=== PATIENT | male | born 1960 | race Caucasian/White ===

== ENCOUNTER 2022-01-27 11:26 | Emergency (ER) | payer SELFPAY ==
[2022-01-27] MEDS ORDERED: LORAZEPAM 0.5 MG TABLET ONE (14:53)
[2022-01-27 14:55] LABS: Absolute Lymphocytes (CBC) 1.5 K/uL (0.7-4.9); Hematocrit 48.6 % (39.6-49.0); Lymphocytes % 23.7 % (15.3-44.8); MCV 96.8 fL (80-100); MPV 7.2 fL (7.6-11.3); RBC Red Blood Cell Count 5.02 M/uL (4.33-5.43)
[2022-01-27] MEDS ORDERED: DIPHENHYDRAMINE 50 MG/ML VIAL ONE (15:04)
[2022-01-27] MEDS ORDERED: dexAMETHasone 10 MG/ML VIAL ONE (15:04)
[2022-01-27] MEDS ORDERED: METOCLOPRAMIDE 10 MG/2mL INJ ONE (15:04)
[2022-01-27] MEDS ORDERED: KETOROLAC 30 MG/ML INJ ONE (15:05)
[2022-01-27] MEDS ORDERED: NA CHLORIDE 0.9% 1,000 ML ONE (15:05)
--- NOTE | 2022-01-27 15:40 | RAD REPORT ---
EXAM DESCRIPTION: CT - Head Brain Wo Cont - 01/27/2022 3:16 pm CLINICAL HISTORY: Headache, new or worsening COMPARISON: No comparisons TECHNIQUE: All CT scans are performed using dose optimization technique as appropriate and may inclu de automated exposure control or mA/KV adjustment according to patient size. FINDINGS: No intracranial hemorrhage, hydrocephalus or extra-axial fluid collection.No areas of brai n edema or evidence of midline shift. Mild chronic small vessel ischemic changes. The paranasal sinuses and mastoids are clear. The calvarium is intact. IMPRESSION: No acute intracranial abnormality.
--- NOTE | 2022-01-27 16:58 | ER ---
Nurse's Notes [facility] Name: Alexander Abraham Age: 61 yrs Sex: Male : 1960 Arrival Date: 01/27/2022 Time: 11:29 Bed 15 Private MD: Diagnosis: Headache;Paresthesia of skin Presentation: 01/27 12:11 Chief complaint: EMS states: Neck pain and MARK x 4 days. Coronavirus screen: At this [facility] time, the client does not indicate any symptoms associated with coronavirus-19. Ebola Screen: No symptoms or risks identified at this time. Risk Assessment: Do you want to hurt yourself or someone else? Patient reports no desire to harm self or others. Onset of symptoms was January 23, 2022. 12:11 Method Of Arrival: EMS: [facility] 12:11 Acuity: NICOLASA 3 7 12:15 Note Pt reports numbness and bilateral arm numbness and tingling from the elbows down, hb and in bilateral legs from the knees down x 1 month. Also c/o neck pain that radiates to front of head x 3-4 days. 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 14:04 Initial Sepsis Screen: Does the patient meet any 2 criteria? No. Patient's initial 3 sepsis screen is negative. Does the patient have a suspected source of infection? No. Patient's initial sepsis screen is negative. Triage Assessment: 13:52 Headache History: The patient has had previous headaches and this one is similar to 3 previous episodes. General: Appears in no apparent distress. uncomfortable, Behavior is cooperative, appropriate for age, anxious. Pain: Complains of pain in top of head, forehead, left frontal area, left side of forehead, right frontal area and right side of forehead Pain currently is 4 out of 10 on a pain scale. at worst was 10 out of 10 on a pain scale. Quality of pain is described as pressure, throbbing, pulsating, Pain began 1 month ago Is intermittent, Alleviated by rest, Aggravated by increased activity, repositioning. EENT: Sclera/Cornea are reddened in outer aspect of conjuctiva of right eye, iris of right eye, inner aspect of conjuctiva of right eye, outer aspect of conjuctiva of left eye, iris of left eye and inner aspect of conjunctiva of left eye. Neuro: Level of Consciousness is awake, alert, obeys commands, Oriented to person, place, time, situation, Pyrometer Mechanic are equal bilaterally Moves all extremities. Gait is steady, Speech is normal, Facial symmetry appears normal, Pupils are PERRLA, Tingling in right leg and left leg Numbness in right leg and left leg Reports headache. Cardiovascular: Capillary refill < 3 seconds Patient's skin is warm and dry. Respiratory: Airway is patent Respiratory effort is even, unlabored. GI: No signs and/or symptoms were reported involving the gastrointestinal system. : No signs and/or symptoms were reported regarding the genitourinary system. Derm: No signs and/or symptoms reported regarding the dermatologic system. Musculoskeletal: Range of motion: intact in all extremities. 17:11 Pain: Also complains of diaphoresis. eh3 Historical: - Allergies: 12:12 No Known Allergies; jl7 - PMHx: 12:12 colon cancer; Hypertensive disorder; jl7 - Immunization history:: Client reports receiving the 2nd dose of the Covid vaccine, Flu vaccine is up to date. - Social history:: Smoking status: Patient reports the use of cigarette tobacco products, smokes one pack cigarettes per day. Screenin:02 Abuse screen: Denies threats or abuse. Denies injuries from another. Nutritional eh3 screening: Had unintentional weight loss of 10 pounds or more. Tuberculosis screening: No symptoms or risk factors identified. Fall Risk None identified. Assessment: 14:26 Reassessment: No changes from previously documented assessment. Pain: Complains of pain eh3 in top of head, forehead, left frontal area, left side of forehead, right frontal area and right side of forehead. Neuro: Reports numbness in lateral aspect of right knee, lateral aspect of right calf, right ankle, lateral aspect of right foot, posterior aspect of right knee, right calf, right Achilles, right heel, medial aspect of right knee, medial aspect of right calf, medial aspect of right foot, right knee, right zamora, anterior aspect of right ankle, dorsum of right foot and left leg. 14:51 Pain: Complains of pain in top of head, forehead, left frontal area, left side of eh3 forehead, right frontal area and right side of forehead Pain currently is 9 out of 10 on a pain scale. 15:30 Reassessment: Pt requesting social service consult - academic services coordinator at bedside at this ld1 time. Vital Signs: 12:15 BP 140 / 95; Pulse 79; Resp 20; Temp 97.8; Pulse Ox 100% on R/A; Weight 74.84 kg; hb Height 5 ft. 9 in. (175.26 cm); Pain 7/10; 13:52 BP 150 / 98; Pulse 76; Resp 17; Pulse Ox 97% on R/A; Pain 4/10; eh3 14:32 BP 145 / 88; Pulse 77; Resp 22; Pulse Ox 99% on R/A; ld1 16:14 BP 154 / 87; Pulse 77; Resp 18; Pulse Ox 100% on R/A; ld1 12:15 Body Mass Index 24.37 (74.84 kg, 175.26 cm) hb ED Course: 11:29 Patient arrived in ED. as 11:34 Jason Vu DO is Attending Physician. ms3 12:12 Triage completed. jl7 12:15 Arm band placed on left wrist. hb 14:01 Tami Paulson is Primary Nurse. eh3 14:02 Patient has correct armband on for positive identification. Placed in gown. Bed in low eh3 position. Call light in reach. Side rails up X2. 14:50 COVID-19 SARS RT PCR (Document "Date of Onset" if Symptomatic) Sent. eh3 14:54 COVID-19 SARS RT PCR (Document "Date of Onset" if Symptomatic) Sent. ld1 15:18 CT Head Brain wo Cont In Process Unspecified. EDMS 16:56 Natalio Choudhury DO is Referral Physician. ms3 17:10 No provider procedures requiring assistance completed. IV discontinued, intact, eh3 bleeding controlled, No redness/swelling at site. Pressure dressing applied. Administered Medications: 14:50 Drug: Ativan (LORazepam) 0.5 mg Route: PO; eh3 15:10 Drug: Decadron - Dexamethasone 10 mg Route: IVP; Site: right antecubital; ld1 15:10 Drug: Ketorolac 10 mg Route: IVP; Site: right antecubital; ld1 15:10 Drug: NS 0.9% 1000 ml Route: IV; Rate: 1000 ml; Site: right antecubital; ld1 15:11 Drug: Reglan (metoCLOPramide) 10 mg Route: IVP; Site: right antecubital; ld1 15:11 Drug: Benadryl (diphenhydrAMINE) 25 mg Route: IVP; Site: right antecubital; ld1 Medication: 17:11 VIS not applicable for this client. 3 Outcome: 16:57 Discharge ordered by . ms3 17:10 Discharged to home ambulatory. 3 17:10 Condition: stable 17:10 Discharge instructions given to patient, Instructed on discharge instructions, follow up and referral plans. Demonstrated understanding of instructions, follow-up care. 17:11 Patient left the ED. eh3 Signatures: Dispatcher [employer] EDMS Ryanne Null Heather, RN RN Judith Braun RN RN jl7 Jason Vu DO DO ms3 Aliza Odonnell RN RN ld1 Tami Paulson eh3 Corrections: (The following items were deleted from the chart) 12:20 12:15 Note Pt reports numbness and bilateral arm numbness and tingling from the elbows hb down, and in bilateral legs from the knees down x 1 month. Also c/o neck pain that radiates to front of head x 3-4 days. hb 14:30 13:52 Pain: Complains of pain in top of head, forehead, right religious, left religious, left eh3 frontal area, left side of the back of head, left side of forehead, left temporal area, left occipital area, right frontal area, right side of the back of head, right temporal area, right side of forehead and right occipital area Pain radiates to neck and back of neck Pain currently is 4 out of 10 on a pain scale. at worst was 10 out of 10 on a pain scale. Quality of pain is described as pressure, radiating, throbbing, pulsating, Pain began 1 month ago Is intermittent, Alleviated by rest, Aggravated by increased activity, repositioning, Also complains of eh3
--- NOTE | 2022-01-27 16:58 | EDPHYS ---
Physician Documentation [facility] Name: Cullen Souzarow Age: 61 yrs Sex: Male : 1960 Arrival Date: 01/27/2022 Time: 11:29 Bed 15 Private MD: ED Physician Jason Vu HPI: 01/27 14:52 This 61 yrs old Male presents to ER via EMS with complaints of Numbness, Headache. ms3 14:52 The patient's problem is reported as paresthesias, all over. Onset: The ms3 symptoms/episode began/occurred acutely. 14:55 Onset: The symptoms/episode began/occurred 1.5 month(s) ago. Duration: The episode is ms3 continuous. The symptoms are alleviated by nothing. The symptoms are aggravated by nothing. Associated signs and symptoms: The patient has no apparent associated signs or symptoms. Severity of symptoms: At their worst the symptoms were moderate in the emergency department the symptoms are unchanged. Patient's baseline: Neuro: alert and fully oriented, Motor: no deficits, Ambulation: walks without assistance, Speech: normal. Historical: - Allergies: 12:12 No Known Allergies; jl7 - PMHx: 12:12 colon cancer; Hypertensive disorder; jl7 - Immunization history:: Client reports receiving the 2nd dose of the Covid vaccine, Flu vaccine is up to date. - Social history:: Smoking status: Patient reports the use of cigarette tobacco products, smokes one pack cigarettes per day. ROS: 14:55 Constitutional: Negative for fever, and chills. Eyes: Negative for injury, pain, ms3 redness, and discharge, Neck: Negative for injury, pain, and swelling, Cardiovascular: Negative for chest pain, and palpitations. Respiratory: Negative for shortness of breath, cough, wheezing, and pleuritic chest pain, Abdomen/GI: Negative for abdominal pain, nausea, vomiting, diarrhea, and constipation, MS/Extremity: Negative for injury and deformity. 14:55 Neuro: Positive for paresthesias. 14:55 All other systems are negative. Exam: 14:55 Constitutional: This is a well developed, well nourished patient who is awake, alert, ms3 and in no acute distress. Head/Face: Normocephalic, atraumatic. Neck: Trachea midline, no cervical lymphadenopathy. Supple, full range of motion without nuchal rigidity, or vertebral point tenderness. No Meningismus. Chest/axilla: Normal chest wall appearance and motion. Nontender with no deformity. Cardiovascular: Regular rate and rhythm with a normal S1 and S2. No gallops, murmurs, or rubs. Normal PMI, no JVD. No pulse deficits. Respiratory: Lungs have equal breath sounds bilaterally, clear to auscultation and percussion. No rales, rhonchi or wheezes noted. No increased work of breathing, no retractions or nasal flaring. Abdomen/GI: Soft, non-tender, with normal bowel sounds. No distension or tympany. No guarding or rebound. No evidence of tenderness throughout. Skin: Warm, dry with normal turgor. Normal color with no rashes, no lesions, and no evidence of cellulitis. MS/ Extremity: Pulses equal, no cyanosis. Neurovascular intact. Full, normal range of motion. Psych: Awake, alert, with orientation to person, place and time. Behavior, mood, and affect are within normal limits. 16:57 Radiologist reports: CT Head Brain wo Cont \\E\\[id number]\\E\\ [facility] [address] [facility] REPORT Name: CULLEN MIRANDA Acct Number: [id number] :1960 Age:61 Sex:M Ord Phys: Jason Vu Unit Number: [id number] [place] [facility]: Danny Redding DO Status: REG ER Exam Date: 01/27/22 EXAM DESCRIPTION: CT - Head Brain Wo Cont - 01/27/2022 3:16 pm CLINICAL HISTORY: Headache, new or worsening COMPARISON: No comparisons TECHNIQUE: All CT scans are performed using dose optimization technique as appropriate and may include automated exposure control or mA/KV adjustment according to patient size. FINDINGS: No intracranial hemorrhage, hydrocephalus or extra-axial fluid collection.No areas of brain edema or evidence of midline shift. Mild chronic small vessel ischemic changes. The paranasal sinuses and mastoids are clear. The calvarium is intact. IMPRESSION: No acute intracranial abnormality. Signed By: Nathan Monte MD Signed AT: 07/19/22 1540 \\E\\[id number]\\E\\ Vital Signs: 12:15 BP 140 / 95; Pulse 79; Resp 20; Temp 97.8; Pulse Ox 100% on R/A; Weight 74.84 kg; hb Height 5 ft. 9 in. (175.26 cm); Pain 7/10; 13:52 BP 150 / 98; Pulse 76; Resp 17; Pulse Ox 97% on R/A; Pain 4/10; eh3 14:32 BP 145 / 88; Pulse 77; Resp 22; Pulse Ox 99% on R/A; ld1 16:14 BP 154 / 87; Pulse 77; Resp 18; Pulse Ox 100% on R/A; ld1 12:15 Body Mass Index 24.37 (74.84 kg, 175.26 cm) hb MDM: 13:39 Patient medically screened. ms3 16:57 Differential diagnosis: metabolic disorder, Neuropathy vs kate. Data reviewed: vital ms3 signs, nurses notes, lab test result(s), radiologic studies, and as a result, I will discharge patient. Counseling: I had a detailed discussion with the patient and/or guardian regarding: the historical points, exam findings, and any diagnostic results supporting the discharge/admit diagnosis, lab results, radiology results, the need for outpatient follow up, to return to the emergency department if symptoms worsen or persist or if there are any questions or concerns that arise at home. ED course: Patient is improved, in NAD, non-toxic appearing, ambulatory in ED, speaking full sentences.. 01/27 14:28 Order name: CBC with Diff; Complete Time: 16:06 ms3 01/27 14:28 Order name: BMP; Complete Time: 16:06 ms3 01/27 14:47 Order name: COVID-19 SARS RT PCR (Document "Date of Onset" if Symptomatic); Complete ld1 Time: 16:31 01/27 14:54 Order name: CT Head Brain wo Cont; Complete Time: 16:06 ms3 Administered Medications: 14:50 Drug: Ativan (LORazepam) 0.5 mg Route: PO; eh3 15:10 Drug: Decadron - Dexamethasone 10 mg Route: IVP; Site: right antecubital; ld1 15:10 Drug: Ketorolac 10 mg Route: IVP; Site: right antecubital; ld1 15:10 Drug: NS 0.9% 1000 ml Route: IV; Rate: 1000 ml; Site: right antecubital; ld1 15:11 Drug: Reglan (metoCLOPramide) 10 mg Route: IVP; Site: right antecubital; ld1 15:11 Drug: Benadryl (diphenhydrAMINE) 25 mg Route: IVP; Site: right antecubital; ld1 Disposition Summary: 01/27/22 16:57 Discharge Ordered Location: Home ms3 Condition: Stable ms3 Diagnosis - Headache ms3 - Paresthesia of skin ms3 Followup: ms3 - With: Natalio Choudhury DO - When: 2 - 3 days - Reason: Re-evaluation by your physician Discharge Instructions: - Discharge Summary Sheet ms3 - General Headache Without Cause ms3 - Paresthesia, [id number] ms3 Forms: - Medication Reconciliation Form ms3 - Thank You Letter ms3 - Antibiotic Education ms3 - Prescription Opioid Use ms3 Signatures: Dispatcher [employer] EDIjeoma Pacheco RN EVON Judith Braun RN RN jl7 Jason Vu, DO ms3 Aliza Odonnell RN RN ld1 Khurram, Tami 3
[2022-01-27 17:41] VITALS: TEMP 97.8
[2022-01-27 17:47] VITALS: BP 154/87; O2SAT 100
== END 2022-01-27 17:11 | disposition home or self-care (01) ==
LOC: ER 11:26
DX: R51.9 Headache, unspecified (principal); R20.2 Paresthesia of skin; I10 Essential (primary) hypertension; F17.210 Nicotine dependence, cigarettes, uncomplicated; Z85.038 Personal history of other malignant neoplasm of large intestine
CPT/HCPCS: 36415; 70450; 80048; 85025; 96374; 96375; 99284; J1100; J1200; J2765; J7030; U0003

== ENCOUNTER 2022-04-28 09:13 | Emergency (ER) | payer SELFPAY ==
[2022-04-28] MEDS ORDERED: ONDANSETRON 4 MG/2 ML VIAL ONE (10:24)
[2022-04-28 10:25] LABS: Absolute Lymphocytes (CBC) 1.8 K/uL (0.7-4.9); Hematocrit 52.4 % (39.6-49.0); Lymphocytes % 28.9 % (15.3-44.8); MCV 95.8 fL (80-100); MPV 7.8 fL (7.6-11.3); RBC Red Blood Cell Count 5.47 M/uL (4.33-5.43)
[2022-04-28] MEDS ORDERED: NA CHLORIDE 0.9% 0 ML ONE (10:25)
[2022-04-28] MEDS ORDERED: NA CHLORIDE 0.9% 1,000 ML ONE (10:25)
[2022-04-28 10:27] LABS: Protime INR 1.08
[2022-04-28] MEDS ORDERED: FENTANYL CITR 100 MCG/2 ML ONE (10:27)
[2022-04-28] MEDS ORDERED: NA CHLORIDE 0.9% 500 ML ONE (10:31)
[2022-04-28] MEDS ORDERED: AMLODIPINE 10 MG TAB ONE (10:47)
[2022-04-28] MEDS ORDERED: ENALAPRIL 10 MG TAB ONE (10:47)
[2022-04-28] MEDS ORDERED: LORazepam 2 MG/ML VIAL ONE (10:47)
--- NOTE | 2022-04-28 10:54 | RAD REPORT ---
EXAM DESCRIPTION: RAD - Chest Single View - 04/28/2022 10:21 am CLINICAL HISTORY: COUGH Chest pain. COMPARISON: CHEST SINGLE VIEW dated 01/10/2011; ABDOMEN ACUTE SERIES dated 04/03/2010; CHEST PA AND LAT 2 VIEW dated 02/03/2010; CHEST SINGLE VIEW dated 02/02/2010 FINDINGS: Portable technique limits examination quality. The lungs are emphysematous but grossly clear. The heart is normal in size. No displaced fractures. IMPRESSION: Mild COPD.
--- NOTE | 2022-04-28 11:15 | RAD REPORT ---
EXAM DESCRIPTION: RAD - Elbow Right 3 View - 04/28/2022 10:21 am CLINICAL HISTORY: PAIN COMPARISON: No comparisons FINDINGS: Mild osteopenia. No acute fracture or dislocation.
--- NOTE | 2022-04-28 11:15 | RAD REPORT ---
EXAM DESCRIPTION: RAD - Shoulder Right 2 View - 04/28/2022 10:21 am CLINICAL HISTORY: PAIN COMPARISON: No comparisons FINDINGS: Mild diffuse osteopenia is seen. Mild degenerative changes noted AC and glenohumeral joint . No acute fracture or dislocation seen.
[2022-04-28 11:44] LABS: Albumin 3.6 g/dL (3.4-5.0); Bilirubin Direct 0.4 mg/dL (0-0.2); Bilirubin Total 2.1 mg/dL (0.2-1.0); Protein, Total 7.5 g/dL (6.4-8.2); Troponin High Sensitivity 11.3 pg/mL (<58.9)
[2022-04-28 11:46] LABS: Potassium 4.3 mmol/L (3.5-5.1)
[2022-04-28 11:47] LABS: Magnesium 1.6 mg/dL (1.8-2.4)
--- NOTE | 2022-04-28 12:16 | RAD REPORT ---
EXAM DESCRIPTION: CT - Head C Spine Cap Lamin Littlejohn - 04/28/2022 11:59 am CLINICAL HISTORY: Trauma, head and neck injury. Chest, abdomen and pelvis pain. FALL COMPARISON: CTANGIO CHEST FOR PE dated 01/10/2011 TECHNIQUE: CT head without contrast. CT cervical spine without contrast with coronal and sagittal reformatted images. CT chest, abdomen and pelvis with IV contrast (approximately 100 mL nonionic IV contrast) with ruiz l and sagittal reformatted images of the spine. All CT scans are performed using dose optimization technique as appropriate and may include automated exposure control or mA/KV adjustment according to patient size. FINDINGS: CT HEAD WITHOUT CONTRAST: No intracranial hemorrhage, hydrocephalus or extra-axial fluid collection. Mild chronic microvascular ischemic changes. No areas of brain edema or midline shift. The paranasal sinuses and mastoids are clear. The calvarium is intact. CT CERVICAL SPINE WITHOUT CONTRAST: No fracture or subluxation. Mild midcervical degenerative changes. The prevertebral soft tissues are normal in thickness. CT CHEST, ABDOMEN, PELVIS WITH CONTRAST: Mild diffuse COPD. Numerous small nodules are present in both lungs, nonspecific. Many of these nodul es have ground-glass attenuation.No pneumothorax or pericardial/pleural fluid. No evidence of intra-abdominal visceral injury, free fluid or free air. Bilateral renal cysts are pre sent. No pelvic mass or hematoma. No acute fractures seen. IMPRESSION: Negative for acute traumatic findings. Numerous bilateral small ground-glass pulmonary nodules are present, nonspecific. Suggest nonemergent pulmonology follow-up.
--- NOTE | 2022-04-28 12:18 | RAD REPORT ---
EXAM DESCRIPTION: RAD - Hip Right 2 View - 04/28/2022 10:21 am CLINICAL HISTORY: PAIN COMPARISON: No comparisons FINDINGS: Moderate osteoarthritis affects the right hip. No fracture, dislocation or AVN seen.
--- NOTE | 2022-04-28 12:23 | EDPHYS ---
Physician Documentation [facility] Name: Alexander Souzarow Age: 62 yrs Sex: Male : 1960 Arrival Date: 04/28/2022 Time: 09:24 Bed 28 Private MD: ED Physician Aric Prajapati HPI: 04/28 10:28 This 62 yrs old Male presents to ER via EMS with complaints of General angela Weakness, Fall Injury. 10:28 Details of fall: The patient fell from an upright position, while walking. Onset: The angela symptoms/episode began/occurred just prior to arrival. Associated injuries: The patient sustained injury to the head, neck injury, contusion, decreased range of motion, swelling, tenderness. Severity of symptoms: At their worst the symptoms were mild, moderate, in the emergency department the symptoms are unchanged. The patient has experienced similar episodes in the past, several times. Historical: - Allergies: 09:33 Morphine; vg1 - Home Meds: 09:33 Metoprolol Tartrate Oral [Active]; amlodipine oral [Active]; vg1 - PMHx: 09:33 colon cancer; Hypertensive disorder; vg1 - PSHx: 09:33 Colon; vg1 - Immunization history:: Client reports receiving the 2nd dose of the Covid vaccine. - Social history:: Smoking status: Patient reports the use of cigarette tobacco products, smokes one pack cigarettes per day. ROS: 10:30 Constitutional: Negative for fever, chills, and weight loss, Eyes: Negative for injury, angela pain, redness, and discharge, ENT: Negative for injury, pain, and discharge, Neck: Negative for injury, pain, and swelling, Cardiovascular: Negative for chest pain, palpitations, and edema, Respiratory: Negative for shortness of breath, cough, wheezing, and pleuritic chest pain, Abdomen/GI: Negative for abdominal pain, nausea, vomiting, diarrhea, and constipation, Back: Negative for injury and pain, : Negative for injury, bleeding, discharge, and swelling, Skin: Negative for injury, rash, and discoloration, Psych: Negative for depression, anxiety, suicide ideation, homicidal ideation, and hallucinations, Allergy/Immunology: Negative for hives, rash, and allergies, Endocrine: Negative for neck swelling, polydipsia, polyuria, polyphagia, and marked weight changes, Hematologic/Lymphatic: Negative for swollen nodes, abnormal bleeding, and unusual bruising. 10:30 MS/extremity: Positive for decreased range of motion, pain, tenderness, of the right arm and right leg. Exam: 10:30 Constitutional: This is a well developed, well nourished patient who is awake, alert, angela and in no acute distress. Head/Face: Normocephalic, atraumatic. Eyes: Pupils equal round and reactive to light, extra-ocular motions intact. Lids and lashes normal. Conjunctiva and sclera are non-icteric and not injected. Cornea within normal limits. Periorbital areas with no swelling, redness, or edema. ENT: Nares patent. No nasal discharge, no septal abnormalities noted. Tympanic membranes are normal and external auditory canals are clear. Oropharynx with no redness, swelling, or masses, exudates, or evidence of obstruction, uvula midline. Mucous membranes moist. Neck: Trachea midline, no thyromegaly or masses palpated, and no cervical lymphadenopathy. Supple, full range of motion without nuchal rigidity, or vertebral point tenderness. No Meningismus. Chest/axilla: Normal chest wall appearance and motion. Nontender with no deformity. No lesions are appreciated. Cardiovascular: Regular rate and rhythm with a normal S1 and S2. No gallops, murmurs, or rubs. Normal PMI, no JVD. No pulse deficits. Respiratory: Lungs have equal breath sounds bilaterally, clear to auscultation and percussion. No rales, rhonchi or wheezes noted. No increased work of breathing, no retractions or nasal flaring. Abdomen/GI: Soft, non-tender, with normal bowel sounds. No distension or tympany. No guarding or rebound. No evidence of tenderness throughout. Back: No spinal tenderness. No costovertebral tenderness. Full range of motion. Male : Normal genitalia with no discharge or lesions. Skin: Warm, dry with normal turgor. Normal color with no rashes, no lesions, and no evidence of cellulitis. Psych: Awake, alert, with orientation to person, place and time. Behavior, mood, and affect are within normal limits. 10:30 Musculoskeletal/extremity: Extremities: grossly normal except: noted in the anterior aspect of right shoulder, right antecubital area, posterior aspect of right shoulder and right elbow: decreased ROM, noted in the right hip: decreased ROM, pain. 10:30 Neuro: Orientation: is normal, appropriate for stated age, no acute changes, Mentation: is normal, appropriate for stated age, no acute changes, Memory: is normal, appropriate for stated age, no acute changes, Cranial nerves: grossly normal, is grossly normal based on the patient's age, no acute changes, Cerebellar function: is grossly normal, no acute changes, Motor: is normal, is grossly normal based on the patient's age, no acute changes, moves all fours, strength is 5/5 in all extremities, Sensation: is normal, Gait: not tested. seizure activity, is not displayed by the patient. Vital Signs: 09:17 BP 132 / 107; Pulse 97; Resp 22; Temp 98.4(O); Pulse Ox 100% on R/A; Weight 68.04 kg; vg1 Height 5 ft. 8 in. (172.72 cm); Pain 5/10; 10:00 BP 160 / 109; Pulse 102; Resp 23; Pulse Ox 100% on R/A; tp1 11:00 BP 154 / 95; Pulse 91; Resp 21; Pulse Ox 94% on R/A; tp1 12:00 BP 164 / 96; Pulse 101; Resp 20; Pulse Ox 100% on R/A; tp1 13:00 BP 134 / 92; Pulse 90; Resp 20; Pulse Ox 98% on R/A; tp1 14:30 BP 113 / 86; Pulse 88; Resp 18; Pulse Ox 98% on R/A; em6 09:17 Body Mass Index 22.81 (68.04 kg, 172.72 cm) vg1 10:00 provider notified of BP tp1 MDM: 09:25 Patient medically screened. angela 10:38 Differential diagnosis: Anterior dislocation with fracture, Anterior dislocation angela without fracture, Posterior dislocation with fracture, Posterior dislocation without fracture, humeral head fracture, glenoid fracture. Differential diagnosis: closed head injury, contusion, fracture, multiple trauma, sprain, strain. Data reviewed: vital signs, nurses notes, lab test result(s), EKG, radiologic studies, CT scan, plain films. Data interpreted: bus driver/monitor: rate is 97 beats/min, rhythm is regular, Pulse oximetry: on room air is 100 %. Test interpretation: by ED physician or midlevel provider: plain radiologic studies. Counseling: I had a detailed discussion with the patient and/or guardian regarding: the historical points, exam findings, and any diagnostic results supporting the discharge/admit diagnosis, lab results, radiology results. 04/28 09:49 Order name: Basic Metabolic Panel; Complete Time: 11:54 [facility] 04/28 09:49 Order name: CBC with Diff; Complete Time: 11:54 [facility] 04/28 09:49 Order name: LFT's; Complete Time: 11:54 [facility] 04/28 09:49 Order name: Magnesium; Complete Time: 11:54 [facility] 04/28 09:49 Order name: NT PRO-BNP; Complete Time: 11:54 [facility] 04/28 09:49 Order name: PT-INR; Complete Time: 11:54 [facility] 04/28 09:49 Order name: Troponin HS; Complete Time: 11:54 [facility] 04/28 09:49 Order name: XRAY Chest (1 view); Complete Time: 11:54 [facility] 04/28 09:49 Order name: CT Traumagram (Head C Spine CAP W Con); Complete Time: 14:21 [facility] 04/28 09:49 Order name: Shoulder Right (2 View) XRAY; Complete Time: 11:54 [facility] 04/28 09:49 Order name: Elbow Right 3 View XRAY; Complete Time: 11:54 [facility] 04/28 09:49 Order name: Hip Right 2 View XRAY; Complete Time: 14:21 [facility] 04/28 09:49 Order name: Lipase; Complete Time: 11:54 [facility] 04/28 09:49 Order name: EKG; Complete Time: 09:50 [facility] 04/28 09:49 Order name: Cardiac monitoring; Complete Time: 09:50 [facility] 04/28 09:49 Order name: EKG - Nurse/Tech; Complete Time: 09:50 [facility] 04/28 09:49 Order name: IV Saline Lock; Complete Time: 09:50 [facility] 04/28 09:49 Order name: Labs collected and sent; Complete Time: 09:50 [facility] 04/28 09:49 Order name: O2 Per Protocol; Complete Time: 09:50 [facility] 04/28 09:49 Order name: O2 Sat Monitoring; Complete Time: 09:50 [facility] Administered Medications: 10:30 Drug: Zofran (Ondansetron) 4 mg Route: IVP; Site: left wrist; tp1 11:20 Follow up: Response: No adverse reaction em6 10:33 Drug: fentaNYL (PF) 50 mcg Route: IVP; Site: left wrist; tp1 11:20 Follow up: Response: No adverse reaction; RASS: Alert and Calm (0) em6 10:34 Drug: NS 0.9% 1000 ml Route: IV; Rate: 125 ml/hr; Site: left wrist; tp1 10:56 Drug: NS 0.9% 500 ml Route: IV; Rate: bolus; Site: left wrist; tp1 11:44 Follow up: IV Status: Completed infusion; IV Intake: 500ml tp1 14:48 Follow up: Response: No adverse reaction; IV Status: Order to discontinue infusion; IV em6 Intake: 600ml 10:56 Drug: Norvasc (amlodipine) 10 mg Route: PO; tp1 11:30 Follow up: Response: No adverse reaction em6 10:56 Drug: Enalapril 5 mg Route: PO; tp1 11:30 Follow up: Response: No adverse reaction em6 10:56 Drug: Ativan (LORazepam) 1 mg Route: IVP; Site: left wrist; tp1 11:30 Follow up: Response: No adverse reaction; RASS: Alert and Calm (0) em6 12:30 Drug: Magnesium Sulfate 2 grams Route: IVPB; Infused Over: 1 hrs; Site: left wrist; tp1 13:32 Follow up: Response: No adverse reaction; IV Status: Completed infusion em6 12:30 Drug: Zithromax (azithromycin) 500 mg Route: PO; tp1 13:32 Follow up: Response: No adverse reaction em6 Disposition Summary: 04/28/22 12:23 Discharge Ordered Location: Home angela Problem: new angela Symptoms: have improved angela Condition: Stable angela Diagnosis - Fall on same level, unspecified angela - History of falling angela - Contusion of right hip angela - Contusion of right elbow angela - Contusion of right shoulder angela - Hypomagnesemia angela - Abnormal findings on diagnostic imaging of other specified body structures - angela NUMEROUS BILATERAL SMALL GROUND GLASSPULNONARY NODULES Followup: angela - With: Private Physician - When: 2 - 3 days - Reason: Recheck today's complaints, Continuance of care, Re-evaluation by your physician Followup: angela - With: - When: 2 - 3 days - Reason: Recheck today's complaints, Re-evaluation by your physician Followup: angela - With: - When: 2 - 3 days - Reason: Recheck today's complaints, Continuance of care, Re-evaluation by your physician Followup: angela - With: Michael Dinero MD - When: 2 - 3 days - Reason: Recheck today's complaints, Continuance of care, Re-evaluation by your physician Discharge Instructions: - Discharge Summary Sheet angela - Fall Prevention in the Home, Adult angela - Hypomagnesemia angela - Fall Prevention in the Home, Adult, [id number] angela - Pulmonary Nodule angela - Pulmonary Nodule, [id number] angela - Fall Prevention in Hospitals, Adult angela - Understanding Your Risk for Falls [facility] Forms: - Medication Reconciliation Form [facility] - Thank You Letter angela - Antibiotic Education angela - Prescription Opioid Use [facility] Prescriptions: - Ibuprofen 600 mg Oral Tablet - take 1 tablet by ORAL route every 6 hours As needed take with food; 20 tablet; [facility] Refills: 0, Product Selection Permitted - Valium 2 mg Oral Tablet - take 1 tablet by ORAL route every 8 hours As needed; 20 tablet; Refills: 0, [facility] Product Selection Permitted - Zithromax 500 mg Oral Tablet - take 1 tablet by ORAL route once daily for 5 days; 5 tablet; Refills: 0, [facility] Product Selection Permitted Signatures: Dispatcher [employer] Aric Sheppard MD MD cha Garcia, Victoria, RN RN vg1 Kristan Wisdom RN RN tp1 Elin Null RN em6 Corrections: (The following items were deleted from the chart) 09:35 09:33 Allergies: No Known Allergies; vg1 vg1 09:35 09:33 PMHx: Colon Cancer; vg1 vg1
--- NOTE | 2022-04-28 12:23 | ER ---
Nurse's Notes [facility] Name: Alexander Abraham Age: 62 yrs Sex: Male : 1960 Arrival Date: 04/28/2022 Time: 09:24 Bed 28 Private MD: Diagnosis: Fall on same level, unspecified;History of falling;Contusion of right hip;Contusion of right elbow;Contusion of right shoulder;Hypomagnesemia;Abnormal findings on diagnostic imaging of other specified body structures-NUMEROUS BILATERAL SMALL GROUND GLASSPULNONARY NODULES Presentation: 04/28 09:17 Chief complaint: EMS states: About two months ago pt has been experiencing full body vg1 shakes and tingling sensation. Went to PCP about a month ago and was told that his cancer may be back. Pt stated PCP did not do any testing. Pt has hx of Colon Cancer. Pt fell yesterday onto tile floor on Right side and c/o Right shoulder, Right elbow and Right hip pain. Pt stated unsure of LOC or of hitting head. Arrival to ED pt c/o CP and SOB. 09:17 Coronavirus screen: Vaccine status: Patient reports receiving the 2nd dose of the covid vg1 vaccine. Client denies travel out of the [place] in the last 14 days. Ebola Screen: Patient negative for fever greater than or equal to 101.5 degrees Fahrenheit, and additional compatible Ebola Virus Disease symptoms Patient denies exposure to infectious person. Initial Sepsis Screen: Does the patient meet any 2 criteria? RR > 20 per min. HR > 90 bpm. Yes Does the patient have a suspected source of infection? No. Patient's initial sepsis screen is negative. Risk Assessment: Do you want to hurt yourself or someone else? Patient reports no desire to harm self or others. Onset of symptoms was April 27, 2022. 09:17 Method Of Arrival: EMS: [facility] vg1 09:17 Acuity: NICOLASA 2 vg1 Triage Assessment: 09:33 General: Appears in no apparent distress. uncomfortable, Behavior is calm, cooperative. vg1 Pain: Complains of pain in chest, right shoulder, right elbow, right hip Pain currently is 5 out of 10 on a pain scale. Pain began 1 day ago. EENT: No signs and/or symptoms were reported regarding the EENT system. Neuro: Level of Consciousness is awake, alert, obeys commands, Oriented to person, place, time, situation, Reports paresthesias "all over". Cardiovascular: Patient's skin is warm and dry. Respiratory: Airway is patent Respiratory effort is even, unlabored, Respiratory pattern is tachypnea. GI: No signs and/or symptoms were reported involving the gastrointestinal system. Abdomen is round non-distended, Patient currently denies diarrhea, nausea, vomiting. : No signs and/or symptoms were reported regarding the genitourinary system. Derm: Skin is pink, warm \\T\\ dry. Musculoskeletal: Circulation, motion, and sensation intact. Reports weakness in generalize body. Historical: - Allergies: 09:33 Morphine; vg1 - Home Meds: :33 Metoprolol Tartrate Oral [Active]; amlodipine oral [Active]; vg1 - PMHx: 09:33 colon cancer; Hypertensive disorder; vg1 - PSHx: :33 Colon; vg1 - Immunization history:: Client reports receiving the 2nd dose of the Covid vaccine. - Social history:: Smoking status: Patient reports the use of cigarette tobacco products, smokes one pack cigarettes per day. Screenin:17 Abuse screen: Denies threats or abuse. Abuse screen: Denies threats or abuse. vg1 Nutritional screening: No deficits noted. Tuberculosis screening: No symptoms or risk factors identified. Fall Risk Fall in past 12 months (25 points). No secondary diagnosis (0 pts). IV access (20 points). Ambulatory Aid- None/Bed Rest/Nurse Assist (0 pts). Gait- Weak (10 pts.). Mental Status- Oriented to own ability (0 pts). Total Cook Fall Scale indicates High Risk Score (45 or more points). Fall prevention measures have been instituted. Side Rails Up X 2 Placed Close to Nursing Station As available patient and family educated on Fall Prevention Program and Strategies. Assessment: 10:42 Reassessment: Patient appears in no apparent distress at this time. No changes from tp1 previously documented assessment. Patient and/or family updated on plan of care and expected duration. Pain level reassessed. Patient is alert, oriented x 3, equal unlabored respirations, skin warm/dry/pink. continuing to CO Right shoulder pain. 11:12 Reassessment: states pain has decreased. tp1 11:44 Reassessment: Patient appears in no apparent distress at this time. No changes from tp1 previously documented assessment. Patient is alert, oriented x 3, equal unlabored respirations, skin warm/dry/pink. PT resting, rates pain 5/10. 12:32 Reassessment: discharge pending Mag administration. tp1 13:37 Reassessment: Patient appears in no apparent distress at this time. No changes from em6 previously documented assessment. Patient and/or family updated on plan of care and expected duration. Pain level reassessed. Patient is alert, oriented x 3, equal unlabored respirations, skin warm/dry/pink. Vital Signs: 09:17 BP 132 / 107; Pulse 97; Resp 22; Temp 98.4(O); Pulse Ox 100% on R/A; Weight 68.04 kg; vg1 Height 5 ft. 8 in. (172.72 cm); Pain 5/10; 10:00 BP 160 / 109; Pulse 102; Resp 23; Pulse Ox 100% on R/A; tp1 11:00 BP 154 / 95; Pulse 91; Resp 21; Pulse Ox 94% on R/A; tp1 12:00 BP 164 / 96; Pulse 101; Resp 20; Pulse Ox 100% on R/A; tp1 13:00 BP 134 / 92; Pulse 90; Resp 20; Pulse Ox 98% on R/A; tp1 14:30 BP 113 / 86; Pulse 88; Resp 18; Pulse Ox 98% on R/A; em6 09:17 Body Mass Index 22.81 (68.04 kg, 172.72 cm) vg1 10:00 provider notified of BP tp1 ED Course: 09:17 Patient has correct armband on for positive identification. Call light in reach. Side vg1 rails up X2. Client placed on continuous cardiac and pulse oximetry monitoring. NIBP monitoring applied. 09:24 Patient arrived in ED. ph 09:25 Aric Prajapati MD is Attending Physician. angela 09:33 Triage completed. vg1 09:33 Arm band placed on. vg1 09:40 Inserted saline lock: 20 gauge in left wrist, using aseptic technique. Blood collected. tp1 09:50 Kristan Wisdom, EVON is Primary Nurse. tp1 10:23 XRAY Chest (1 view) In Process Unspecified. EDMS 10:23 Shoulder Right (2 View) XRAY In Process Unspecified. EDMS 10:23 Elbow Right 3 View XRAY In Process Unspecified. EDMS 10:23 Hip Right 2 View XRAY In Process Unspecified. EDMS 12:01 CT Traumagram (Head C Spine CAP W Con) In Process Unspecified. EDMS 12:21 Duncan Cagle MD is Referral Physician. angela 12:21 Jarett Doshi MD is Referral Physician. angela 12:21 Michael Dinero MD is Referral Physician. angela 14:49 No provider procedures requiring assistance completed. IV discontinued, intact, em6 bleeding controlled, No redness/swelling at site. Pressure dressing applied. Administered Medications: 10:30 Drug: Zofran (Ondansetron) 4 mg Route: IVP; Site: left wrist; tp1 11:20 Follow up: Response: No adverse reaction em6 10:33 Drug: fentaNYL (PF) 50 mcg Route: IVP; Site: left wrist; tp1 11:20 Follow up: Response: No adverse reaction; RASS: Alert and Calm (0) em6 10:34 Drug: NS 0.9% 1000 ml Route: IV; Rate: 125 ml/hr; Site: left wrist; tp1 10:56 Drug: NS 0.9% 500 ml Route: IV; Rate: bolus; Site: left wrist; tp1 11:44 Follow up: IV Status: Completed infusion; IV Intake: 500ml tp1 14:48 Follow up: Response: No adverse reaction; IV Status: Order to discontinue infusion; IV em6 Intake: 600ml 10:56 Drug: Norvasc (amlodipine) 10 mg Route: PO; tp1 11:30 Follow up: Response: No adverse reaction em6 10:56 Drug: Enalapril 5 mg Route: PO; tp1 11:30 Follow up: Response: No adverse reaction em6 10:56 Drug: Ativan (LORazepam) 1 mg Route: IVP; Site: left wrist; tp1 11:30 Follow up: Response: No adverse reaction; RASS: Alert and Calm (0) em6 12:30 Drug: Magnesium Sulfate 2 grams Route: IVPB; Infused Over: 1 hrs; Site: left wrist; tp1 13:32 Follow up: Response: No adverse reaction; IV Status: Completed infusion em6 12:30 Drug: Zithromax (azithromycin) 500 mg Route: PO; tp1 13:32 Follow up: Response: No adverse reaction em6 Medication: 14:49 VIS not applicable for this client. em6 Intake: 11:44 IV: 500ml; Total: 500ml. tp1 14:48 IV: 600ml; Total: 1100ml. em6 Outcome: 12:23 Discharge ordered by MD. miller 14:49 Discharged to home via ambulance, with family. em6 14:49 Condition: stable 14:49 Discharge instructions given to patient, family, Instructed on discharge instructions, follow up and referral plans. medication usage, Demonstrated understanding of instructions, follow-up care, medications, Prescriptions given X 3. 14:49 Patient left the ED. em6 Signatures: Dispatcher [employer] EDMS Aric Prajapati MD MD cha Hall, Patricia, RN RN Courtney Andrade RN RN vg1 Kristan Wisdom RN RN tp1 Elin Null RN RN em6 Corrections: (The following items were deleted from the chart) 09:35 09:33 Allergies: No Known Allergies; vg1 vg1 09:35 09:33 PMHx: Colon Cancer; vg1 vg1
[2022-04-28] MEDS ORDERED: AZITHROMYCIN 250 MG TAB ONE (12:28)
[2022-04-28] MEDS ORDERED: Magnesium Sulfate 2gm IVPB 2 G/50 ML BAG IV ONE (12:28)
[2022-04-28 15:05] VITALS: TEMP 98.4
[2022-04-28 15:18] VITALS: O2SAT 98
[2022-04-28 15:19] VITALS: BP 113/86
--- NOTE | 2022-04-29 16:35 | EKG ---
Test Date: 2022-04-28 Test Time: 09:46:35 Clinic Cma: TP MEASUREMENT RESULTS: Intervals: Rate: 90 TX: 142 QRSD: 114 QT: 378 QTc: 462 [place]: P: 58 TX: 142 QRS: 92 T: 22 INTERPRETIVE STATEMENTS: Sinus rhythm with premature supraventricular complexes Right bundle branch block T wave abnormality, consider inferior ischemia Abnormal ECG Compared to ECG 01/11/2011 07:15:32 Atrial premature complex(es) now present Right bundle-branch block now present T-wave abnormality now present Possible ischemia now present Electronically Signed On 04-29-22 16:34:38 CDT by David Mtz
== END 2022-04-28 14:49 | disposition home or self-care (01) ==
LOC: ER 09:13
DX: S70.01XA Contusion of right hip, initial encounter (principal); S50.01XA Contusion of right elbow, initial encounter; S40.011A Contusion of right shoulder, initial encounter; W18.30XA Fall on same level, unspecified, initial encounter; E83.42 Hypomagnesemia; R93.89 Abnormal findings on diagnostic imaging of other specified body structures; Z91.81 History of falling; I10 Essential (primary) hypertension; F17.210 Nicotine dependence, cigarettes, uncomplicated; Z88.5 Allergy status to narcotic agent; Z85.038 Personal history of other malignant neoplasm of large intestine
CPT/HCPCS: 36415; 70450; 71045; 71260; 72125; 74177; 80048; 80076; 83690; 83735; 83880; 84484; 85025; 85610; 93005; 96361; 96365; 96375; 99284; J2405; J3010; J3475; J7030; J7040; J7050; Q9967

== ENCOUNTER 2022-05-28 16:35 | Emergency (ER) | payer SELFPAY ==
[2022-05-28 18:11] LABS: Absolute Lymphocytes (CBC) 2.6 K/uL (0.7-4.9); Hematocrit 52.1 % (39.6-49.0); Lymphocytes % 31.1 % (15.3-44.8); MCV 95.7 fL (80-100); MPV 7.9 fL (7.6-11.3); Protime INR 1.12; RBC Red Blood Cell Count 5.45 M/uL (4.33-5.43)
[2022-05-28 18:28] LABS: Albumin 3.7 g/dL (3.4-5.0); Bilirubin Direct 0.5 mg/dL (0-0.2); Bilirubin Total 2.1 mg/dL (0.2-1.0); Magnesium 1.8 mg/dL (1.8-2.4); Potassium 3.2 mmol/L (3.5-5.1); Protein, Total 7.4 g/dL (6.4-8.2); Troponin High Sensitivity 28.2 pg/mL (<58.9)
--- NOTE | 2022-05-28 18:40 | RAD REPORT ---
EXAM DESCRIPTION: RAD - Chest Single View - 05/28/2022 6:19 pm CLINICAL HISTORY: Chest pain COMPARISON: Chest Single View dated 04/28/2022; CHEST SINGLE VIEW dated 01/10/2011; ABDOMEN ACUTE SERI ES dated 04/03/2010; CHEST PA AND LAT 2 VIEW dated 02/03/2010 FINDINGS: Lines: None. Lungs: Mild basilar opacities medially within the right lung base. Left lung is clear. Pleural: No significant pleural effusions or pneumothorax. Cardiac: The heart size is within normal limits. Mediastinum: Within normal limits. Bones: No acute fractures. Other: None IMPRESSION: Mild opacities medially within the right lower lobe may be technique related but cannot exclude pneumonia.
[2022-05-28 20:01] LABS: SARS-COV-2 RT PCR NEGATIVE (NEGATIVE)
--- NOTE | 2022-05-28 20:13 | RAD REPORT ---
EXAM DESCRIPTION: CT - [id number] - 05/28/2022 7:59 pm CLINICAL HISTORY: Trauma, head and neck injury. fall COMPARISON: <Comparisons> TECHNIQUE: Axial 5 mm thick images of the head were obtained. Axial 2 mm thick images of the cervical spine were obtained with sagittal and coronal reconstruction images generated and reviewed. All CT scans are performed using dose optimization technique as appropriate and may include automated exposure control or mA/KV adjustment according to patient size. FINDINGS: CT HEAD WITHOUT CONTRAST: No acute hemorrhage, hydrocephalus or extra-axial collection is identified.No areas of brain edema or midline shift. The paranasal sinuses and mastoids are clear.The calvarium is intact. CT CERVICAL SPINE WITHOUT CONTRAST: No fracture or subluxation.No prevertebral soft tissues swelling is identified. Mild multilevel cervi dhaval spondylosis. Neural foraminal narrowing noted bilaterally. Mild central spinal stenosis is presen t at C3-4. Carotid artery calcifications. Emphysema. Asymmetric fullness at the right tonsillar fossa . IMPRESSION: No acute intracranial or cervical spine findings. Mild asymmetry at the right tonsillar fossa. Suggest direct visualization.
--- NOTE | 2022-05-28 20:22 | RAD REPORT ---
EXAM DESCRIPTION: CTAngio Aorta For Dissection - 05/28/2022 8:00 pm CLINICAL HISTORY: chest pain, back pain COMPARISON: No comparisons TECHNIQUE: CTA of the chest, abdomen, and pelvis was performed.MIPs were created. All CT scans are performed using dose optimization technique as appropriate and may include automated exposure control or mA/KV adjustment according to patient size. FINDINGS: Thorax: Chest Wall: No abnormal mass Lungs: Small nonspecific pulmonary nodules are present bilaterally. No dominant nodules seen. Most of the nodules measure 6 millimeters or less. Background of emphysema. Pleura: No effusions or pneumothorax. Josefina/Mediastinum: No lymphadenopathy. Aorta/Pulmonary Arteries: The aorta at the level of the sinuses measures 5 cm. Probable aortic valve calcifications. Heart: Normal size. Multi-vessel coronary artery disease. Abdomen/Pelvis: Liver: Hepatic steatosis. Biliary: No biliary ductal dilatation. Stomach: No significant focal abnormality. Duodenum: No significant focal abnormality. Pancreas: No significant abnormality. Spleen: No significant abnormality. Adrenal: No suspicious lesions. Kidney/ureter: No hydronephrosis. No renal calculi. Too small to characterize and/or benign appearing renal lesions are noted. Retroperitoneum: No retroperitoneal adenopathy. Vascular: No aortic aneurysm is identified. A right common iliac artery aneurysm is present measuring 2.1 cm. No dissection is seen. Atherosclerosis is present. Bowel: Diverticulosis. No evidence of acute diverticulitis.. Peritoneum: No ascites or free air. Bladder: Grossly unremarkable. Reproductive: No adnexal masses. Bones: No acute fracture. Other: n/a IMPRESSION: No acute findings within the chest, abdomen, or pelvis. Specifically, no aortic aneurysm or dissection. Note that the aortic root at the level of the sinuses is dilated and there are likely aortic valvular calcifications. Echocardiography is recommended. Multiple bilateral pulmonary nodules with background of emphysema. Recommend six-month follow-up ches t CT. The USPTF recommends annual screening for lung cancer with low-dose CT (LDCT) in adults aged 50 to 80 years who have a 20 pack-year smoking history and currently smoke or have quit within the past 15 years. Right common iliac artery aneurysm measuring 2.1 cm.
--- NOTE | 2022-05-28 21:03 | EDPHYS ---
Physician Documentation [facility] Name: Alexander Souzarow Age: 62 yrs Sex: Male : 1960 Arrival Date: 05/28/2022 Time: 16:39 Bed 7 Private MD: ED Physician Aric Prajapati HPI: 05/28 17:50 This 62 yrs old Male presents to ER via Wheelchair with complaints of Chest Pain, cp Shortness Of Breath. 17:50 The patient or guardian reports chest pain that is located primarily in the anterior cp chest wall. 17:50 Onset: today. Associated signs and symptoms: Pertinent positives: abdominal pain, lower cp extremity pain, shortness of breath, back pain, Pertinent negatives: diaphoresis, lower extremity swelling, syncope, vomiting. The chest pain is described as a pressure. Duration: The patient or guardian reports a single episode, that is still ongoing. Severity of pain: in the emergency department the pain is unchanged. Patient reports tingling in all extremities, increasing difficulty walking over past several months. Historical: - Allergies: 17:11 Morphine; kr3 - Home Meds: 23:46 amlodipine oral [Active]; Metoprolol Tartrate Oral [Active]; tw5 - PMHx: 17:11 colon cancer; Hypertensive disorder; kr3 - PSHx: 17:11 Colon; kr3 - Immunization history:: Adult Immunizations not up to date. - Social history:: Smoking status: Patient reports the use of cigarette tobacco products, smokes one-half pack cigarettes per day. ROS: 17:55 Constitutional: Negative for body aches, chills, fever, poor PO intake. cp 17:55 Eyes: Negative for injury, pain, redness, and discharge. cp 17:55 ENT: Negative for drainage from ear(s), ear pain, sore throat, difficulty swallowing, difficulty handling secretions. 17:55 Cardiovascular: Positive for chest pain, Negative for edema, palpitations. 17:55 Respiratory: Positive for shortness of breath, Negative for cough, wheezing. 17:55 Abdomen/GI: Positive for abdominal pain, Negative for nausea, vomiting, and diarrhea. 17:55 Back: Positive for pain at rest. 17:55 MS/extremity: Positive for pain, paresthesias, of the right leg and left leg, Negative for injury or acute deformity, decreased range of motion. 17:55 Neuro: Positive for tingling, Negative for altered mental status, dizziness, headache, syncope. 17:55 All other systems are negative. Exam: 17:50 ECG was reviewed by the Attending Physician. cp 17:58 Constitutional: The patient appears in no acute distress, alert, awake, cp non-diaphoretic, non-toxic, well developed, well nourished, anxious. 17:58 Head/Face: Normocephalic, atraumatic. cp 17:58 Eyes: Periorbital structures: appear normal, Pupils: equal, round, and reactive to light and accomodation, Extraocular movements: intact throughout, Conjunctiva: normal, no exudate, no injection, Sclera: no appreciated abnormality, Lids and lashes: appear normal, bilaterally. 17:58 ENT: External ear(s): are unremarkable, Nose: is normal, Mouth: Lips: moist, Oral mucosa: pink and intact, moist, Posterior pharynx: Airway: no evidence of obstruction, patent, swelling, is not appreciated, erythema, that is mild, exudate, is not appreciated. 17:58 Neck: ROM/movement: is normal, is supple, no meningismus, no nuchal rigidity. 17:58 Chest/axilla: Inspection: normal, Palpation: is normal, no crepitus, no tenderness. 17:58 Cardiovascular: Rate: normal, Rhythm: regular, Pulses: Pulses are 2+ in right radial artery, right dorsalis pedis artery, left radial artery and left dorsalis pedis artery. Edema: is not appreciated, JVD: is not appreciated. 17:58 Respiratory: the patient does not display signs of respiratory distress, Respirations: normal, no use of accessory muscles, no retractions, labored breathing, is not present. 17:58 Abdomen/GI: Inspection: abdomen appears normal, Palpation: abdomen is soft and non-tender, in all quadrants. 17:58 Back: pain, that is mild, ROM is normal, CVA tenderness, is absent. 17:58 Skin: no rash present. 17:58 Neuro: Orientation: to person, place \T\ time. Mentation: is normal, Cerebellar function: is grossly normal, Motor: moves all fours, strength is normal, Sensation: no obvious gross deficits. Vital Signs: 17:06 BP 121 / 78; Pulse 79; Resp 18; Temp 98.7; Pulse Ox 99% on R/A; Weight 65.77 kg; Height kr3 5 ft. 8 in. (172.72 cm); Pain 7/10; 19:32 BP 143 / 96; Pulse 74; Resp 23; Pulse Ox 99% on R/A; kd3 19:47 BP 124 / 70; Pulse 86; Resp 18; Pulse Ox 98% on R/A; tw5 20:09 Pulse 82; Resp 18; Pulse Ox 100% on R/A; tw5 21:25 BP 151 / 101; Pulse 87; Resp 16 S; Pulse Ox 94% on R/A; aa9 21:45 BP 150 / 93; Pulse 81; Resp 19 S; Pulse Ox 96% on R/A; aa9 22:15 BP 150 / 106; Pulse 86; Resp 18 S; Pulse Ox 99% on R/A; aa9 22:24 Pain 7/10; tw5 22:45 BP 133 / 87; Pulse 81; Resp 18 S; Pulse Ox 95% on R/A; aa9 23:15 BP 124 / 95; Pulse 75; Resp 19 S; Pulse Ox 99% ; aa9 23:45 BP 138 / 91; Pulse 74; Resp 18 S; Pulse Ox 96% on R/A; tw5 17:06 Body Mass Index 22.05 (65.77 kg, 172.72 cm) kr3 MDM: 17:21 Patient medically screened. 20:45 Data reviewed: vital signs, nurses notes, lab test result(s), EKG, radiologic studies, cp CT scan, plain films. 20:45 Test interpretation: by ED physician or midlevel provider: ECG, plain radiologic cp studies. 21:00 Counseling: I had a detailed discussion with the patient and/or guardian regarding: the cp historical points, exam findings, and any diagnostic results supporting the discharge/admit diagnosis, lab results. 21:50 Physician consultation: was contacted at 21:45, regarding regarding transfer, to [facility]. patient's condition, accepting physician will be DR Ambrocio. 05/28 17:43 Order name: Basic Metabolic Panel; Complete Time: 18:40 cp 05/28 18:41 Interpretation: Normal except: K 3.2; GLUC 107; GFR 70. 05/28 17:43 Order name: CBC with Diff; Complete Time: 18:40 cp 05/28 20:03 Interpretation: Normal except: RBC 5.45; HCT 52.1. cp 05/28 17:43 Order name: LFT's; Complete Time: 18:40 cp 05/28 17:43 Order name: Magnesium; Complete Time: 18:40 cp 05/28 17:43 Order name: NT PRO-BNP; Complete Time: 18:40 cp 05/28 17:43 Order name: PT-INR; Complete Time: 18:40 cp 05/28 17:43 Order name: Troponin HS; Complete Time: 18:40 cp 05/28 17:43 Order name: XRAY Chest (1 view); Complete Time: 18:40 cp 05/28 18:00 Order name: COVID-19/FLU A+B; Complete Time: 20:03 cp 05/28 20:03 Interpretation: Normal except: SARSCOV2 RT PCR NEGATIVE. 05/28 18:42 Order name: D-Dimer; Complete Time: 19:02 cp 05/28 19:02 Interpretation: Reviewed. 05/28 18:42 Order name: LAB Add On cp 05/28 19:02 Order name: CT Head C Spine; Complete Time: 20:41 cp 05/28 20:42 Interpretation: Reviewed report. 05/28 19:03 Order name: CT Aorta for Dissection; Complete Time: 20:41 cp 05/28 17:43 Order name: EKG; Complete Time: 17:44 cp 05/28 17:43 Order name: Cardiac monitoring; Complete Time: 19:32 cp 05/28 17:43 Order name: EKG - Nurse/Tech; Complete Time: 17:50 cp 05/28 17:43 Order name: IV Saline Lock; Complete Time: 17:58 cp 05/28 17:43 Order name: Labs collected and sent; Complete Time: 17:58 cp 05/28 17:43 Order name: O2 Per Protocol; Complete Time: 19:32 cp 05/28 17:43 Order name: O2 Sat Monitoring; Complete Time: 19:32 cp EC:50 Rate is 79 beats/min. Rhythm is regular. MA interval is normal. QRS interval is cp prolonged at 122 msec. QT interval is normal. T waves are Inverted in leads V2, V3, V4, V5, V6. Interpreted by me. Reviewed by me. Administered Medications: 21:25 Drug: Metoprolol 25 mg Route: PO; 22:24 Follow up: Response: No adverse reaction :25 Drug: fentaNYL (PF) 25 mcg Route: IVP; Site: left antecubital; 22:24 Follow up: Pain 7/10 Adult; Response: No adverse reaction; RASS: Alert and Calm (0) 22:26 Drug: Ativan (LORazepam) 0.5 mg Route: IVP; Site: left antecubital; 05/29 00:06 Follow up: Response: No adverse reaction 05/28 22:27 Drug: amLODIPine 10 mg Route: PO; 05/29 00:06 Follow up: Response: No adverse reaction 00:06 Drug: fentaNYL (PF) 25 mcg Route: IVP; Site: left antecubital; Disposition Summary: 05/28/22 21:02 Transfer Ordered Transfer Location: [facility] cp Reason: Higher level of care cp Condition: Stable cp Problem: new cp Symptoms: have improved cp Accepting Physician: DR Ambrocio(05/29/22 00:07) tw5 Diagnosis - Aortic aneurysm of unspecified site, without rupture cp - Chest pain, unspecified cp Forms: - Medication Reconciliation Form cp - SBAR form cp Addendum: 05/31/2022 13:29 Co-signature as Attending Physician, Aric Prajapati MD I agree with the assessment and c major plan of care. Signatures: Dispatcher [employer] EDAric Garcia MD MD cha Page, Corey PA PA Kristan Lantigua tw5 Anita Rae RN RN aa9 Shelby Fine RN RN kr3 Corrections: (The following items were deleted from the chart) 05/28 21:03 21:02 Doctor cp cp 05/29 00:01 05/28 21:03 Doctor cp cp 05/29 00:07 00:01 DR Ambrocio cp tw5 19:43 05/28 17:55 MS/extremity: Positive for pain, of the right leg and left leg, Negative cp for injury or acute deformity, decreased range of motion, paresthesias, cp 05/29 19:43 05/28 17:55 Neuro: Negative for altered mental status, dizziness, headache, syncope, cp cp
--- NOTE | 2022-05-28 21:03 | ER ---
Nurse's Notes [facility] Name: Alexander Abraham Age: 62 yrs Sex: Male : 1960 Arrival Date: 05/28/2022 Time: 16:39 Bed 7 Private MD: Diagnosis: Aortic aneurysm of unspecified site, without rupture;Chest pain, unspecified Presentation: 05/28 17:06 Chief complaint: Patient states: I was at the shelter visiting my and my kr3 heart started racing, over the last 3 months I have had tingling all my limbs. I can no longer walk or stand. Coronavirus screen: Vaccine status: Patient reports receiving the 2nd dose of the covid vaccine. Client denies travel out of the [place] in the last 14 days. Ebola Screen: Patient denies travel to an Ebola-affected area in the 21 days before illness onset. Initial Sepsis Screen: Does the patient meet any 2 criteria? No. Patient's initial sepsis screen is negative. Does the patient have a suspected source of infection? No. Patient's initial sepsis screen is negative. Risk Assessment: Do you want to hurt yourself or someone else? Patient reports no desire to harm self or others. Onset of symptoms was March 12, 2022. 17:06 Method Of Arrival: Wheelchair kr3 17:06 Acuity: NICOLASA 3 kr3 Triage Assessment: 17:12 General: Appears in no apparent distress. uncomfortable, Behavior is calm, cooperative, kr3 appropriate for age. Pain: Complains of pain in chest pain mostly with cough and inspiration. Historical: - Allergies: 17:11 Morphine; kr3 - Home Meds: 23:46 amlodipine oral [Active]; Metoprolol Tartrate Oral [Active]; tw5 - PMHx: 17:11 colon cancer; Hypertensive disorder; kr3 - PSHx: 17:11 Colon; kr3 - Immunization history:: Adult Immunizations not up to date. - Social history:: Smoking status: Patient reports the use of cigarette tobacco products, smokes one-half pack cigarettes per day. Screenin:14 Abuse screen: Denies threats or abuse. Denies injuries from another. Nutritional kd3 screening: No deficits noted. Tuberculosis screening: No symptoms or risk factors identified. Fall Risk None identified. Assessment: 19:15 General: Appears in no apparent distress. Behavior is calm, cooperative. Neuro: Level kd3 of Consciousness is awake, alert, obeys commands, Oriented to person, place, time, situation. Respiratory: Airway is patent Trachea midline Respiratory effort is even, unlabored, Respiratory pattern is regular, symmetrical. 19:33 Respiratory: Breath sounds are coarse bilaterally. Breath sounds with crackles kd3 bilaterally. 19:45 General: Appears in no apparent distress. Behavior is calm, cooperative, appropriate tw5 for age. Cardiovascular:. 20:09 General: " My chest hurts and my legs hurt so bad I can hardly move them.". tw5 21:26 General: Appears uncomfortable, slender, Behavior is cooperative, anxious, crying. aa9 Pain: Complains of pain in chest, right leg and left leg Pain does not radiate. Pain currently is 10 out of 10 on a pain scale. Noted to be crying. Neuro: Level of Consciousness is awake, alert, obeys commands, Oriented to person, place, time, situation. Cardiovascular: Patient's skin is warm and dry. Respiratory: Airway is patent Respiratory effort is even, unlabored. GI: No signs and/or symptoms were reported involving the gastrointestinal system. 21:52 Reassessment: Patient and/or family updated on plan of care and expected duration. Pain aa9 level reassessed. Patient is alert, oriented x 3, equal unlabored respirations, skin warm/dry/pink. pt states th bhavani leg pain has gone from 10/10 to 7/10 since medicated, pt refused additional pain medication at this time. 22:24 Pain: Pain currently is 7 out of 10 on a pain scale. tw5 23:46 Pain: Pain began suddenly. tw5 23:57 Reassessment: EMS at bedside to transport pt, report provided to EMT, pt aware of need aa9 for transfer denies concerns at this time. Vital Signs: 17:06 BP 121 / 78; Pulse 79; Resp 18; Temp 98.7; Pulse Ox 99% on R/A; Weight 65.77 kg; Height kr3 5 ft. 8 in. (172.72 cm); Pain 7/10; 19:32 BP 143 / 96; Pulse 74; Resp 23; Pulse Ox 99% on R/A; kd3 19:47 BP 124 / 70; Pulse 86; Resp 18; Pulse Ox 98% on R/A; tw5 20:09 Pulse 82; Resp 18; Pulse Ox 100% on R/A; tw5 21:25 BP 151 / 101; Pulse 87; Resp 16 S; Pulse Ox 94% on R/A; aa9 21:45 BP 150 / 93; Pulse 81; Resp 19 S; Pulse Ox 96% on R/A; aa9 22:15 BP 150 / 106; Pulse 86; Resp 18 S; Pulse Ox 99% on R/A; aa9 22:24 Pain 7/10; tw5 22:45 BP 133 / 87; Pulse 81; Resp 18 S; Pulse Ox 95% on R/A; aa9 23:15 BP 124 / 95; Pulse 75; Resp 19 S; Pulse Ox 99% ; aa9 23:45 BP 138 / 91; Pulse 74; Resp 18 S; Pulse Ox 96% on R/A; tw5 17:06 Body Mass Index 22.05 (65.77 kg, 172.72 cm) kr3 ED Course: 16:39 Patient arrived in ED. mr 17:00 Aric Rojo PA is PHCP. cp 17:01 Aric Prajapati MD is Attending Physician. cp 17:11 Triage completed. kr3 17:13 Arm band placed on left wrist. kr3 18:21 XRAY Chest (1 view) In Process Unspecified. EDMS 19:13 COVID-19/FLU A+B Sent. kd3 19:14 Patient has correct armband on for positive identification. kd3 19:35 Kristan Palacio is Primary Nurse. tw5 19:38 COVID-19/FLU A+B Sent. tw5 19:45 Client placed on continuous cardiac and pulse oximetry monitoring. NIBP monitoring tw5 applied. Door closed. Noise minimized. Moved to private room. Warm blanket given. Verbal reassurance given. 19:45 IV is patent, is intact, with fluids infusing freely, with good blood return, 20 g LAC tw5 placed by previous shift. . 19:45 Patient maintains SpO2 saturation greater than 95% on room air. Wound care: to weeping tw5 legs wounds. Cleaned with CHG 4% and ointment placed on wound. 19:51 LAB Add On Sent. tw5 20:01 CT Head C Spine In Process Unspecified. EDMS 20:02 CT Aorta for Dissection In Process Unspecified. EDMS 20:56 intiated a transfer with Emma from [facility]. mw2 21:13 connected Aric ÁLVAREZ with the Doctor from [facility]. mw2 21:27 PO fluids given. Verbal reassurance given. aa9 21:42 Emma from [facility] called back she stated "the patient will be getting a bed, but mw2 the bed needs to be cleaned before I can give administrative approval.". 22:23 No provider procedures requiring assistance completed. aa9 23:23 administrative approval given by Emma Rankin/ patient has been accepted to [address] to bed 1060/ Dr. Ambrocio accepted the patient in transfer/report to be called to [phone]. 23:46 Patient transferred, IV remains in place. tw5 Administered Medications: 21:25 Drug: Metoprolol 25 mg Route: PO; aa9 22:24 Follow up: Response: No adverse reaction tw5 21:25 Drug: fentaNYL (PF) 25 mcg Route: IVP; Site: left antecubital; aa9 22:24 Follow up: Pain 7/10 Adult; Response: No adverse reaction; RASS: Alert and Calm (0) tw 22:26 Drug: Ativan (LORazepam) 0.5 mg Route: IVP; Site: left antecubital; tw05/29 00:06 Follow up: Response: No adverse reaction 05/28 22:27 Drug: amLODIPine 10 mg Route: PO; tw5 05/29 00:06 Follow up: Response: No adverse reaction 00:06 Drug: fentaNYL (PF) 25 mcg Route: IVP; Site: left antecubital; tw Medication: 05/28 19:45 VIS not applicable for this client. tw Outcome: 21:02 ER care complete, transfer ordered by . josé 23:45 Transferred by ground EMS to [facility], Transfer form completed. tw Note: report called to Ngozi. Going to room 1060 23:45 Condition: stable 23:45 Instructed on the need for transfer. 05/29 00:07 Patient left the ED. tw5 Signatures: Dispatcher [employer] [facility] Sierra Diaz Corey, PA PA cp [place], MyKena mw2 Kristan Palacio tw5 Eleanor Asher, RN RN kd3 Anita Rae, RN RN aa9 Shelby Fine RN RN kr3
[2022-05-28] MEDS ORDERED: FENTANYL CITR 100 MCG/2 ML ONE (21:21)
[2022-05-28] MEDS ORDERED: METOPROLOL TAR 25 MG TAB ONE (21:21)
[2022-05-28] MEDS ORDERED: LORazepam 2 MG/ML VIAL ONE (22:22)
[2022-05-28] MEDS ORDERED: AMLODIPINE 10 MG TAB ONE (22:23)
[2022-05-29] MEDS ORDERED: FENTANYL CITR 100 MCG/2 ML ONE (00:03)
[2022-05-29 00:14] VITALS: TEMP 98.7
[2022-05-29 00:24] VITALS: BP 124/95; O2SAT 99
--- NOTE | 2022-05-30 19:16 | EKG ---
Test Date: 2022-05-28 Test Time: 17:46:18 Sales Estimator: SHEEBA MEASUREMENT RESULTS: Intervals: Rate: 79 WV: 142 QRSD: 122 QT: 408 QTc: 467 Agency: P: 59 WV: 142 QRS: 93 T: 27 INTERPRETIVE STATEMENTS: Normal sinus rhythm Right bundle branch block T wave abnormality, consider lateral ischemia Abnormal ECG Compared to ECG 04/28/2022 09:46:35 Atrial premature complex(es) no longer present T-wave abnormality still present Possible ischemia still present Electronically Signed On 05-30-22 19:10:53 DIRECTOR OF IT OPERATIONS by Jeff Alston
== END 2022-05-29 00:07 | disposition short-term general hospital (02) ==
LOC: ER 16:35
DX: I71.9 Aortic aneurysm of unspecified site, without rupture (principal)
CPT/HCPCS: 0240U; 36415; 70450; 71045; 71275; 72125; 74175; 80048; 80076; 83735; 83880; 84484; 85025; 85379; 85610; 93005; 96374; 96375; 99285; J3010; Q9967

== ENCOUNTER 2022-06-12 11:52 | Inpatient (IN) | payer SELFPAY ==
--- OUTSIDE RECORDS SUMMARY | 2022-06-12 11:58 | XMS REPORT | Continuity of Care Document ---
:1960 Author Organization [facility] t Address [address] [place] [address] Care Team Providers Name Role Phone Merissa Ambrocio MD Attending Clinician [phone] Syeda Sanchez MD Attending Clinician Bryan Esquivel MD Attending Clinician BRYAN ESQUIVEL Attending Clinician Unavailable Billie Vyas MD Attending Clinician MERISSA AMBROCIO Attending Clinician Unavailable MERISSA AMBROCIO Admitting Clinician Unavailable Problems Condition Condition Condition Status Onset Resolution Last Treating Co mments Source Name Details Category Date Date Treatment Clinician Date Coronary Coronary Disease [facility] disease disease 00:00: Medical involving involving 00 [facility] coronary coronary artery artery Hypertensi Hypertensi Disease Active 2021-[address] on on 08-01 00:00: Medical [place] HLD HLD Disease Active 2021-[address] [facility] (hyperlipi (hyperlipi 08-01 Jada kes demia) demia) 00:00: Medical 00 [place] Smoker Smoker Disease Active 2021-[address] [facility] [place] Thrombocyt Thrombocyt Disease Active 2021-[address] openia openia 08-01 [facility] 00:00: Medical 00 [place] Cellulitis Cellulitis Disease Active 2021-[address] of back of back 08-01 [facility] except except 00:00: Medical buttock buttock 00 [place] Epigastric Epigastric Disease Active 2021-[address] pain pain 1-21 [facility] 00:00: Medical 00 [place] Deconditio Deconditio Disease Active 2021-[address] jodie low jodie low 08-01 [facility] back back 00:00: Medical 00 [place] Frail Frail Disease Active 2021-[address] [facility] elderly elderly 08-01 [facility] 00:00: Medical 00 [place] Other Other Disease Active 2021-[address] [facility] chest pain chest pain 08-01 Jada kes 00:00: Medical 00 [place] Paresthesi Paresthesi Disease Active 2021-[address] as with as with 08-01 [facility] subjective subjective 00:00: Me dical weakness weakness 00 Center History of History of Disease Active 2021-[address] colon colon 08-01 [facility] cancer cancer 00:00: Medical 00 [place] Adynamic Adynamic Disease Active 2021-[facility] ileus ileus 08[facility]01 [facility] 00:[facility]: Medical 00 [place] Weight Weight Disease Active 2021-[address] [facility] [facility] loss, loss, 08-01 [facility] unintentio unintentio 00:00: Me dical nal nal 00 [place] (Ambrocio) (Ambrocio) Disease Active 2021-07 [facility] 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 00:00: Medica l common common 00 Center iliac iliac artery artery Allergies, Adverse Reactions, Alerts Allergy Allergy Status Severity Reaction(s) Onset Inactive Treating Comm ents Source Name Type Date Date Clinician Morphine Drug Active Nausea And 2021-[address] [facility] Intolera Vomiting -18 [facility] nce 00:00: Medical [place] MORPHINE Allergy Active Med N\T\V 2021-[address] [facility] -18 [facility] 00:00: Medical 00 [place] Social History Social Habit Start Date Stop Date Quantity Comments Source Exposure to 2022-05-19 2022-05-[address] [facility] SARS-CoV-2 (event) 00:00:00 01:39:00 Medica l Center Cigarettes smoked 2022-05-29 2022-05-[address] [facility] current (pack per 00:00:00 00:00:00 Medical Center day) - Reported Tobacco use and 2022-05-29 2022-05-[address] [facility] [address] Jada kes exposure 00:00:00 00:00:00 Medical Center Sex Assigned At [address] [facility] 00:00:00 00:00:00 Medical Center Smoking Status Start Date Stop Date Source Current every day smoker 2022-05-29 00:00:[address] [facility] Medications Ordered Filled Start Stop Current Ordering Indication Dosage Frequency Signature Comments Components Source Medication Medication Date Date Medication? Clinician (SIG) Name Name amLODIPine 2021-07 Yes 10mg QD Take [address] (NORVASC) 08-09 by mouth [facility] 10 MG 16:04: daily. Medical tablet 42 Center enalapril 2021-07 Yes 10mg QD Take [address] (VASOTEC) 08-09 by mouth [facility] 10 MG 16:04: daily. Medical tablet 42 Center metoprolol 2021-07 Yes 25mg QD Take [address] succinate 08-09 by mouth [facility] (TOPROL-XL) 16:04: daily. Medi dhaval 25 MG 24 hr 42 Center tablet aspirin 81 2021-07- Yes 81mg QD Take [address] [facility] [facility] MG chewable 08-09 tablet (81 L ukes tablet 00:00: 23:59 mg total) Medic al 00 :00 by mouth Center daily. gabapentin 2021-07- Yes 300mg QD Take [address] (NEURONTIN) 08-09 capsule Luke s 300 MG 00:00: 23:59 (300 mg Medical capsule 00 :00 total) by Center mouth nightly. nicotine 2021-07- Yes 1{patch QD Place [address] (NICODERM 08-09 } patch onto [place] es CQ) 14 00:00: 23:59 the skin Medica l mg/24 hr 00 :00 daily for Center patch 30 days. polyethylen 2021-07- Yes 17g QD Take [address] e glycol 08-09 by mouth [facility] (GLYCOLAX) 00:00: 23:59 daily for M edical 17 gram 00 :00 3 days. Center packet atorvastati 2021-07- Yes 40mg QD Take [address] n (LIPITOR) 08-08 tablet (40 L ukes 40 MG 00:00: 23:59 mg total) Medica l tablet 00 :00 by mouth Center nightly. gabapentin 2021-07- No 300mg [id number] Take [address] (NEURONTIN) 08-08 [id number] capsule [facility] 300 MG 00:00: 00:00 3D (300 mg Medical capsule 00 :00 total) by Center mouth 3 (three) times daily. Vital Signs Vital Name Observation Time Observation Value Comments Source WEIGHT 2022-06-07 07:29:00 67.7 kg WEIGHT 2022-05-29 01:00:00 65.772 kg HEIGHT 2022-05-29 01:00:00 172.7 cm WEIGHT 2022-06-07 07:29:00 67.7 kg WEIGHT 2022-05-29 01:00:00 65.772 kg HEIGHT 2022-05-29 01:00:00 172.7 cm WEIGHT 2022-06-07 07:29:00 67.7 kg WEIGHT 2022-05-29 01:00:00 65.772 kg HEIGHT 2022-05-29 01:00:00 172.7 cm Systolic blood 2022-06-09 15:22:00 137 mm[Hg] [facility] Diastolic blood 2022-06-09 15:22:00 98 mm[Hg] [facility] Heart rate 2022-06-09 15:22:00 85 /min [facility] Body temperature 2022-06-09 15:22:00 36.5 Caprice [facility] Respiratory rate 2022-06-09 15:22:00 18 /min [facility] Oxygen saturation in 2022-06-09 15:22:00 98 /min [facility] Arterial blood by Medical Ce nter Pulse oximetry Body weight 2022-06-07 07:29:[address] [facility] BMI 2022-06-07 07:29:00 22.69 kg/m2 [facility] Body height 2022-05-29 01:00:[address] [facility] Procedures Procedure Date / Time Performing Clinician Source Performed POCT-GLUCOSE METER 2022-06-09 11:39:00 Bryan Esquivel [facility] POCT-GLUCOSE METER 2022-06-09 07:01:00 Bryan Esquivel [facility] BASIC METABOLIC PANEL 2022-06-09 04:08:00 Tyler Hardy [facility] CBC W/PLT COUNT & AUTO 2022-06-09 04:08:[address] [facility] CBC W/PLT COUNT & AUTO 2022-06-09 04:08:[address] [facility] POCT-GLUCOSE METER 2022-06-08 20:57:00 Neason [facility] POCT-GLUCOSE METER 2022-06-08 16:38:00 Neason, [facility] POCT-GLUCOSE METER 2022-06-08 12:00:00 Neason, [facility] POCT-GLUCOSE METER 2022-06-08 08:13:00 Neason, [facility] CBC W/PLT COUNT & AUTO 2022-06-08 04:45:[address] [facility] CBC W/PLT COUNT & AUTO 2022-06-08 04:45:[address] [facility] BASIC METABOLIC PANEL 2022-06-08 04:45:00 Tyler Hardy [facility] POCT-GLUCOSE METER 2022-06-07 21:02:00 Nancyalissa [facility] POCT-GLUCOSE METER 2022-06-07 17:14:00 [facility] PO[facility]SE [facility] 2022-06-07 11:05:00 Neason, [facility] POCT-GLUCOSE METER 2022-06-07 07:28:00 Neason, [facility] CBC W/PLT COUNT & AUTO 2022-06-07 03:39:[address] [facility] BASIC METABOLIC PANEL 2022-06-07 03:39:00 Tyler Hardy [facility] CBC W/PLT COUNT & AUTO 2022-06-07 03:39:[address] [facility] POCT-GLUCOSE METER 2022-06-06 20:43:00 Neason [facility] POCT-GLUCOSE METER 2022-06-06 16:56:00 Neason [facility] POCT-GLUCOSE METER 2022-06-06 11:22:00 Nealissa, [facility] SARS-COV2/RT-PCR ([facility] & 2022-06-06 08:18:00 Tyler Hardy [facility] POCT-GLUCOSE METER 2022-06-06 07:22:00 Nealissa [facility] CBC W/PLT COUNT & AUTO 2022-06-06 04:38:[address] [facility] BASIC METABOLIC PANEL 2022-06-06 04:38:00 Tyler Hardy [facility] CBC W/PLT COUNT & AUTO 2022-06-06 04:38:[address] [facility] POCT-GLUCOSE METER 2022-06-05 20:49:00 Nealissa [facility] POCT-GLUCOSE METER 2022-06-05 11:53:00 Neason [facility] POCT-GLUCOSE METER 2022-06-05 06:46:00 Sierra [facility] CBC W/PLT COUNT & AUTO 2022-06-05 04:25:[address] [facility] BASIC METABOLIC PANEL 2022-06-05 04:25:00 Tyler Hardy [facility] CBC W/PLT COUNT & AUTO 2022-06-05 04:25:[address] [facility] POCT-GLUCOSE METER 2022-06-04 20:47:00 Neason [facility] POCT-GLUCOSE METER 2022-06-04 16:17:00 Neason, [facility] POCT-GLUCOSE METER 2022-06-04 11:29:00 [facility] POCT-GLUCOSE METER 2022-06-04 06:44:00 [facility] W/[facility]T [facility] & AUTO 2022-06-04 05:02:[address] [facility] BASIC METABOLIC PANEL 2022-06-04 05:02:00 Tyler Hardy [facility] CBC W/PLT COUNT & AUTO 2022-06-04 05:02:[address] [facility] CT CHEST WITH IV CONTRAST 2022-06-04 02:03:00 Tyler Hardy [facility] CT ABDOMEN/PELVIS WITH IV 2022-06-04 02:03:00 Tyler Hardy [facility] POCT-GLUCOSE METER 2022-06-03 21:08:00 [facility] POCT-[facility]SE METER 2022-06-03 17:05:00 Sierra [facility] POCT-GLUCOSE METER 2022-06-03 11:06:00 Nealissa, [facility] POCT-GLUCOSE METER 2022-06-03 07:26:00 Sierra [facility] CBC W/PLT COUNT & AUTO 2022-06-03 04:28:[address] [facility] BASIC METABOLIC PANEL 2022-06-03 04:28:00 Tyler Hardy [facility] CBC W/PLT COUNT & AUTO 2022-06-03 04:28:[address] [facility] POCT-GLUCOSE METER 2022-06-02 20:51:00 Sierra [facility] POCT-GLUCOSE METER 2022-06-02 14:41:00 Sierra [facility] POCT-ACT 2022-06-02 13:49:00 [facility], 2022-06-02 12:49:00 SenBillie [facility] LEFT, WITH PERCUTANEOUS Medical Center CORONARY INTERVENTION POCT-GLUCOSE METER 2022-06-02 11:08:[address] [facility] POCT-GLUCOSE METER 2022-06-02 07:54:00 Sierra [facility] CBC W/PLT COUNT & AUTO 2022-06-02 04:18:00 [facility] CBC W/PLT COUNT & AUTO 2022-06-02 04:18:[address] [facility] BASIC METABOLIC PANEL 2022-06-02 04:17:00 Tyler Hardy [facility] POCT-GLUCOSE METER 2022-06-01 20:56:00 [facility] PO[facility]SE [facility]ER 2022-06-01 16:29:00 Nancyalissa [facility] POCT-GLUCOSE METER 2022-06-01 11:50:00 Sierra [facility] POCT-GLUCOSE METER 2022-06-01 07:21:00 Daniel [facility] CBC W/PLT COUNT & AUTO 2022-06-01 04:44:00 Mitul Sanchezna [facility] MAGNESIUM 2022-06-01 04:44:00 Ramirez [facility] PHOSPHORUS 2022-06-01 04:44:00 [facility] 2022-06-01 04:44:00 Tyler Hardy [facility] CBC W/PLT COUNT & AUTO 2022-06-01 04:44:[address] [facility] POCT-GLUCOSE METER 2022-05-31 21:37:00 [facility]/ DOPPLER 2022-05-31 17:38:13 Tyler Hardy [facility] (CW/PW/COLOR) [facility] POCT-GLUCOSE METER 2022-05-31 17:06:00 Syeda Sanchez [facility] POCT-GLUCOSE METER 2022-05-31 11:44:[address] [facility] POCT-GLUCOSE METER 2022-05-31 06:53:[address] [facility] XR ABDOMEN/KUB 1 VIEW 2022-05-31 06:47:00 Amalia Deleon [facility] PORTABLE [facility] XR CHEST 1 VIEW PORTABLE / 2022-05-31 06:44:00 Amalia Deleon [facility] BEDSIDE [facility] HIGH SENSITIVITY TROPONIN I 2022-05-31 06:35:00 Eli Deleon [facility] ECG 12-LEAD 2022-05-31 06:20:00 Amalia Deleon [facility] ECG 12-LEAD 2022-05-31 06:20:00 Unknown, Hl7 [facility] CBC W/PLT COUNT & AUTO 2022-05-31 04:37:00 Syeda Sanchez [facility] MAGNESIUM 2022-05-31 04:37:00 [facility]OS[facility] 2022-05-31 04:37:00 Ramirez [facility] BASIC METABOLIC PANEL 2022-05-31 04:37:00 Tylre Hardy CH I [facility] CBC W/PLT COUNT & AUTO 2022-05-31 04:37:00 Tyler Hardy [facility] POCT-GLUCOSE METER 2022-05-30 21:10:[address] [facility] CT ABDOMEN/PELVIS WITHOUT 2022-05-30 18:15:00 Tyler Hardy [facility] IV CONTRAST [facility] POCT-GLUCOSE METER 2022-05-30 16:54:[address] [facility] SARS-COV2/RT-PCR ([facility] & 2022-05-30 16:21:00 Tyler Hardy [facility] REF LABS) [facility] NM MYOCARDIAL PERFUSION 2022-05-30 14:14:00 Syeda Sanchez [facility] PET/CT (REST & STRESS) Medical C enter ECG 12-LEAD 2022-05-30 13:25:46 Unknown, Hl7 [facility] ECG 12-LEAD 2022-05-30 13:25:46 Unknown, Hl7 [facility] VITAMIN B12 BINDING 2022-05-30 09:39:00 Holly Pulido [facility] POCT-GLUCOSE METER 2022-05-30 07:54:[address] [facility] CBC W/PLT COUNT & AUTO 2022-05-30 04:29:00 Syeda Sanchez [facility] MAGNESIUM 2022-05-30 04:29:[address] [facility] PHOS[facility]US 2022-05-30 04:29:00 [facility]IC MET[facility]OLIC PANEL 2022-05-30 04:29:00 Tyler Hardy [facility] CBC W/PLT COUNT & AUTO 2022-05-30 04:29:[address] [facility] POCT-GLUCOSE METER 2022-05-29 21:05:[address] [facility] CAROTID DOPPLER BILATERAL 2022-05-29 20:25:00 Tyler Hardy [facility] POCT-GLUCOSE METER 2022-05-29 16:43:[address] [facility] CARCINOEMBRYONIC ANTIGEN 2022-05-29 16:18:00 Tyler Hardy [facility] (CEA) [facility] CARBOHYDRATE ANTIGEN 19-9 2022-05-29 16:18:00 Tyler Hardy [facility] (CA 19-9) [facility] ALPHA FETOPROTEIN (AFP), 2022-05-29 16:18:00 Tyler Hardy [facility] TUMOR MARKER [facility] POCT-GLUCOSE METER 2022-05-29 11:14:[address] [facility] POCT-GLUCOSE METER 2022-05-29 07:24:[address] [facility] CBC W/PLT COUNT & AUTO 2022-05-29 04:34:00 Ramirez Joslyn I [facility] BASIC METABOLIC PANEL 2022-05-29 04:34:00 [facility] PROTHROMBIN TIME/INR 2022-05-29 04:34:00 Guzmán [facility] MAGNESIUM 2022-05-29 04:34:00 Ramirez [facility] PHOSPHORUS 2022-05-29 04:34:00 [facility] CBC W/PLT COUNT & AUTO 2022-05-29 04:34:[address] [facility] I [facility] Plan of Care Planned Activity Planned Date Details Comments Source Future Scheduled 2023-06-[address] [facility] Test 00:00:00 [facility]ing [facility] Medical Cente r Screening (12+) [code = Tobacco Cessation Counseling and Screening (12+)] Future Scheduled 2022-03-12 INFLUENZA VACCINE (#1) [facility] 00:00:00 [code = INFLUENZA Medical Ce nter VACCINE (#1)] Future Scheduled 2021-07-[address] [facility] Test 00:00:00 (12+) [code = [facility] DEPRESSION SCREENING (12+)] Future Scheduled 2010 SHINGLES VACCINES ([address] [facility] Test 00:00:00 2) [code = SHINGLES [facility] VACCINES (1 of 2)] Future Scheduled 1995 Lipid panel (procedure) [facility] Test 00:00:00 [code = 06346300] Medical Ce nter Future Scheduled 1979 DTAP/TDAP/TD VACCINES [facility] 00:00:00 (1 - Tdap) [code = Medical C enter DTAP/TDAP/TD VACCINES (1 - Tdap)] Future Scheduled 1978 HEPATITIS C SCRE[facility]ING [facility] 00:00:00 [code = HEPATITIS C Medical Center SCREENING] Future Scheduled [address] [facility] Test 00:00:00 0-64 YRS (1 - PCV) Medical C enter [code = PNEUMOCOCCAL VACCINE 0-64 YRS (1 - PCV)] Future Scheduled 1960 COVID-19 VACCINE (#1) [facility] 00:00:00 [code = COVID-[address] VACCINE (#1)] Future Scheduled 1960 CT Colonography (combo) [facility] Test 00:00:00 [code = CT Colonography [facility] (combo)] Future Scheduled 1960 Screening for malignant [facility] Test 00:00:00 neoplasm of colon Medical Ce nter (procedure) [code = 152163656] Future Scheduled 1960 Screening for malignant [facility] Test 00:00:00 neoplasm of colon Medical Ce nter (procedure) [code = 676736108] Future Scheduled 1960 Screening for malignant [facility] Test 00:00:00 neoplasm of colon Medical Ce nter (procedure) [code = 676493417] Future Scheduled 1960 Screening for malignant [facility] Test 00:00:00 neoplasm of colon Medical Ce nter (procedure) [code = 860212877] Future Scheduled 1960 Sigmoidoscopy [code = [facility] 00:[facility]00 Sigmoidoscopy] Medical Cente r Encounters Start End Encounter Admission Attending Care Care Encounter Source Date/Time Date/Time Type Type Clinicians Facility Department ID 2022-05-29 2022-06-09 [facility] Merissa Ambrocionaveendori [facility] [id number] [facility] 01:15:00 16:04:00 Encounter Syeda Sanchez [facility] 2022-05-29 2022-06-09 Inpatient ER FREDA ESQUIVEL General Med 3 [id number] [facility] 01:15:00 16:04:00 [facility] 2022-06-02 2022-06-02 Surgery Sen, [facility] [id number] 12:15:00 14:52:00 [facility] 2022-05-31 2022-05-31 Outpatient [place] BC [id number] [facility] 00:00:00 23:59:00 [facility] 2022-05-30 2022-05-30 Orders [facility] [id number] 00:00:00 00:00:00 Only [facility] 2022-05-29 2022-05-29 Travel [facility] [id number] [facility] 00:[facility]00 00:00:00 [facility] Results Test Description Test Time Test Comments Results Result Comments Source POC-Glucose meter 2022-06-09 11:50:45 Test Item Value Reference Range Interpretation Comme nts POC-Glucose Meter (test code = 116 mg/dL 70-110 H : TESTED AT [facility] [address] [facility] [address] [place] [address], [facility] 30: Craft Coordinator/Techni ilir ID = [id number] for MATIAS ROB Lab Interpretation (test code = Abnormal 28639-1) [facility] [id number] 11:50:45 Test Item Value Reference Range Interpretation Comments POC-GLUCOSE METER 116 mg/dL 70-110 H : TESTED A T [facility] 6720 (BEAKER) (test code = GREYSON Roca [facility], 1538) [address]: Craft Coordinator/Techni ilir ID = [id number] for ALFREDO NTER, HIWITHA POCT-GLUCOSE [id number] 07:12:04 Test Item Value Reference Range Interpretation Comments POC-GLUCOSE METER 100 mg/dL 70-110 : TESTED A T [facility] 6720 (BEAKER) (test code = KAYNANCY Abelino [facility], 1538) [address]74: Craft Coordinator/Techni ilir ID = [id number] for HU NTER, HIWITHA BASIC METABOLIC [id number] 05:05:52 Test Item Value Reference Range Interpretation Comments SODIUM (BEAKER) 134 meq/L 136-145 L (test code = 381) POTASSIUM 4.1 meq/L 3.5-5.1 (BEAKER) (test code = 379) CHLORIDE (BEAKER) 106 meq/L 98-107 (test code = 382) CO2 (BEAKER) 21 meq/L 22-29 L (test code = 355) BLOOD UREA 11 mg/dL 7-21 NITROGEN (BEAKER) (test code = 354) CREATININE 0.74 mg/dL 0.57-1.25 (BEAKER) (test code = 358) GLUCOSE RANDOM 102 mg/dL 70-105 (BEAKER) (test code = 652) CALCIUM (BEAKER) 9.4 mg/dL 8.4-10.2 (test code = 697) EGFR (BEAKER) 102 Interpretatio n of eGFR (test code = mL/min/1.73 values Stage De scription 1092) sq m Result G1 Allie l or high >=90 G2 Mildly decreased 60-89 G3a Mildl y to moderately 45-5 9 G3b Moderately to s everely 30-44 G4 Severl y decreased 15-29 G5 Kidne y failure <15Reported eGF R is based on the CKD-EPI 2020 equation that d oes not use a race coefficientEsti mated GFR is not as accur ate as Creatinine Brigitte shonda in predicting glom erular filtration rate . Estimated GFR is not appl icable for dialysis patien ts Craft Coordinator ID - HENRY WCBC W/PLT COUNT & AUTO [id number] 04:17:24 Test Item Value Reference Range Interpretation Comments WHITE BLOOD CELL COUNT (BEAKER) 5.7 K/ L 3.5-10.5 (test code = 775) RED BLOOD CELL COUNT (BEAKER) 4.61 M/ L 4.63-6.08 L (test code = 761) HEMOGLOBIN (BEAKER) (test code = 14.6 GM/DL 13.7-17.5 410) HEMATOCRIT (BEAKER) (test code = 41.5 % 40.1-51.0 411) MEAN CORPUSCULAR VOLUME (BEAKER) 90 fL 79-92 (test code = 753) MEAN CORPUSCULAR HEMOGLOBIN 31.7 pg 25.7-32.2 (BEAKER) (test code = 751) MEAN CORPUSCULAR HEMOGLOBIN CONC 35.2 GM/DL 32.3-36.5 (BEAKER) (test code = 752) RED CELL DISTRIBUTION WIDTH 12.9 % 11.6-14.4 (BEAKER) (test code = 412) PLATELET COUNT (BEAKER) (test 184 K/CU MM 150-450 code = 756) MEAN PLATELET VOLUME (BEAKER) 9.6 fL 9.4-12.4 (test code = 754) NUCLEATED RED BLOOD CELLS 0 /100 WBC 0-0 (BEAKER) (test code = 413) NEUTROPHILS RELATIVE PERCENT 44 % (BEAKER) (test code = 429) LYMPHOCYTES RELATIVE PERCENT 37 % (BEAKER) (test code = 430) MONOCYTES RELATIVE PERCENT 15 % (BEAKER) (test code = 431) EOSINOPHILS RELATIVE PERCENT 3 % (BEAKER) (test code = 432) BASOPHILS RELATIVE PERCENT 1 % (BEAKER) (test code = 437) NEUTROPHILS ABSOLUTE COUNT 2.52 K/ L 1.78-5.38 (BEAKER) (test code = 670) LYMPHOCYTES ABSOLUTE COUNT 2.11 K/ L 1.32-3.57 (BEAKER) (test code = 414) MONOCYTES ABSOLUTE COUNT (BEAKER) 0.83 K/ L 0.30-0.82 H (test code = 415) EOSINOPHILS ABSOLUTE COUNT 0.18 K/ L 0.04-0.54 (BEAKER) (test code = 416) BASOPHILS ABSOLUTE COUNT (BEAKER) 0.07 K/ L 0.01-0.08 (test code = 417) IMMATURE GRANULOCYTES-RELATIVE 0.20 % 0.00-1.00 PERCENT (BEAKER) (test code = 2801) POCT-GLUCOSE [id number] 21:09:21 Test Item Value Reference Range Interpretation Comments POC-GLUCOSE METER 119 mg/dL 70-110 H : TESTED A T [facility] 6720 (BEAKER) (test code = [facility], 153) 89[address]: Craft Coordinator/Techni ilir ID = [id number] for ISAIAS ASHRAF SE POCT-GLUCOSE [id number] 16:49:45 Test Item Value Reference Range Interpretation Comments POC-GLUCOSE METER 87 mg/dL 70-110 : TESTED A T [facility] 6720 (BEAKER) (test code = [facility], 153) 60892: Craft Coordinator/Techni ilir ID = [id number] for HERONRASHAAD MARIE POCT-GLUCOSE [id number] 12:12:01 Test Item Value Reference Range Interpretation Comments POC-GLUCOSE METER 97 mg/dL 70-110 : TESTED A T [facility] 6720 (BEAKER) (test code = GREYSON Roca [place], 1538) [address]: Craft Coordinator/Techni ilir ID = [id number] for MARIE TALAVERA POCT-GLUCOSE [id number] 08:24:18 Test Item Value Reference Range Interpretation Comments POC-GLUCOSE METER 95 mg/dL 70-110 : TESTED A T [facility] 6720 (BEAKER) (test code = GREYSON Roca [facility], 1538) [id number]: Craft Coordinator/Techni ilir ID = [id number] for MARIE TALAVERA BASIC METABOLIC [id number] 06:41:00 Test Item Value Reference Range Interpretation Comments SODIUM (BEAKER) 133 meq/L 136-145 L (test code = 381) POTASSIUM 4.2 meq/L 3.5-5.1 (BEAKER) (test code = 379) CHLORIDE (BEAKER) 105 meq/L 98-107 (test code = 382) CO2 (BEAKER) 22 meq/L 22-29 (test code = 355) BLOOD UREA 12 mg/dL 7-21 NITROGEN (BEAKER) (test code = 354) CREATININE 0.87 mg/dL 0.57-1.25 (BEAKER) (test code = 358) GLUCOSE RANDOM 99 mg/dL 70-105 (BEAKER) (test code = 652) CALCIUM (BEAKER) 9.3 mg/dL 8.4-10.2 (test code = 697) EGFR (BEAKER) 99 Interpretatio n of eGFR (test code = mL/min/1.73 values Stage De scription 1092) sq m Result G1 Allie l or high >=90 G2 Mildly decreased 60-89 G3a Mildl y to moderately 45-5 9 G3b Moderately to s everely 30-44 G4 Severl y decreased 15-29 G5 Kidney failure <15Reported eGF R is based on the CKD-EPI 2021 equation that d oes not use a race coefficientEsti mated GFR is not as accur ate as Creatinine Brigitte merchant in predicting glom erular filtration rate . Estimated GFR is not appl icable for dialysis patien ts Craft Coordinator ID - ALEKSEY MCBC W/PLT COUNT & AUTO [id number] 05:06:23 Test Item Value Reference Range Interpretation Comments WHITE BLOOD CELL COUNT (BEAKER) 5.5 K/ L 3.5-10.5 (test code = 775) RED BLOOD CELL COUNT (BEAKER) 4.62 M/ L 4.63-6.08 L (test code = 761) HEMOGLOBIN (BEAKER) (test code = 14.7 GM/DL 13.7-17.5 410) HEMATOCRIT (BEAKER) (test code = 41.9 % 40.1-51.0 411) MEAN CORPUSCULAR VOLUME (BEAKER) 91 fL 79-92 (test code = 753) MEAN CORPUSCULAR HEMOGLOBIN 31.8 pg 25.7-32.2 (BEAKER) (test code = 751) MEAN CORPUSCULAR HEMOGLOBIN CONC 35.1 GM/DL 32.3-36.5 (BEAKER) (test code = 752) RED CELL DISTRIBUTION WIDTH 12.9 % 11.6-14.4 (BEAKER) (test code = 412) PLATELET COUNT (BEAKER) (test 175 K/CU MM 150-450 code = 756) MEAN PLATELET VOLUME (BEAKER) 9.8 fL 9.4-12.4 (test code = 754) NUCLEATED RED BLOOD CELLS 0 /100 WBC 0-0 (BEAKER) (test code = 413) NEUTROPHILS RELATIVE PERCENT 44 % (BEAKER) (test code = 429) LYMPHOCYTES RELATIVE PERCENT 37 % (BEAKER) (test code = 430) MONOCYTES RELATIVE PERCENT 15 % (BEAKER) (test code = 431) EOSINOPHILS RELATIVE PERCENT 3 % (BEAKER) (test code = 432) BASOPHILS RELATIVE PERCENT 1 % (BEAKER) (test code = 437) NEUTROPHILS ABSOLUTE COUNT 2.43 K/ L 1.78-5.38 (BEAKER) (test code = 670) LYMPHOCYTES ABSOLUTE COUNT 2.03 K/ L 1.32-3.57 (BEAKER) (test code = 414) MONOCYTES ABSOLUTE COUNT (BEAKER) 0.80 K/ L 0.30-0.82 (test code = 415) EOSINOPHILS ABSOLUTE COUNT 0.17 K/ L 0.04-0.54 (BEAKER) (test code = 416) BASOPHILS ABSOLUTE COUNT (BEAKER) 0.06 K/ L 0.01-0.08 (test code = 417) IMMATURE GRANULOCYTES-RELATIVE 0.20 % 0.00-1.00 PERCENT (BEAKER) (test code = 2801) POCT-GLUCOSE [id number] 21:14:48 Test Item Value Reference Range Interpretation Comments POC-GLUCOSE METER 123 mg/dL 70-110 H : TESTED A T [facility] 6720 (BEAKER) (test code = [facility], 1538) 26135: Craft Coordinator/Techni ilir ID = [id number] for PE RALES, SUDHA POCT-GLUCOSE [id number] 17:25:39 Test Item Value Reference Range Interpretation Comments POC-GLUCOSE METER 108 mg/dL 70-110 : TESTED A T [facility] 6720 (BEAKER) (test code = [facility], 1538) 53817: Craft Coordinator/Techni ilir ID = [id number] for CO RTEZ, JILLIAN POCT-GLUCOSE [id number] 11:16:40 Test Item Value Reference Range Interpretation Comments POC-GLUCOSE METER 151 mg/dL 70-110 H : TESTED A T [facility] 6720 (BEAKER) (test code = [facility], 1538) 74227: Craft Coordinator/Techni ilir ID = [id number] for CO RTEZ, JILLIAN POCT-GLUCOSE [id number] 07:40:07 Test Item Value Reference Range Interpretation Comments POC-GLUCOSE METER 91 mg/dL 70-110 : TESTED A T [facility] 6720 (BEAKER) (test code = [facility], 1538) 83125: Craft Coordinator/Techni ilir ID = [id number] for BHAVANI EZ, JILLIAN BASIC METABOLIC [id number] 05:19:53 Test Item Value Reference Range Interpretation Comments SODIUM (BEAKER) 133 meq/L 136-145 L (test code = 381) POTASSIUM 4.3 meq/L 3.5-5.1 (BEAKER) (test code = 379) CHLORIDE (BEAKER) 104 meq/L 98-107 (test code = 382) CO2 (BEAKER) 21 meq/L 22-29 L (test code = 355) BLOOD UREA 14 mg/dL 7-21 NITROGEN (BEAKER) (test code = 354) CREATININE 0.82 mg/dL 0.57-1.25 (BEAKER) (test code = 358) GLUCOSE RANDOM 88 mg/dL 70-105 (BEAKER) (test code = 652) CALCIUM (BEAKER) 9.3 mg/dL 8.4-10.2 (test code = 697) EGFR (BEAKER) 100 Interpretatio n of eGFR (test code = mL/min/1.73 values Stage De scription 1092) sq m Result G1 Allie l or high >=90 G2 Mildly decreased 60-89 G3a Mild ly to moderately 45-5 9 G3b Moderately to s everely 30-44 G4 Severl y decreased 15-29 G5 Kidney failure <15Reported eGF R is based on the CKD-EPI 2020 equation that d oes not use a race coefficientEsti mated GFR is not as accur ate as Creatinine Brigitte shonda in predicting glom erular filtration rate . Estimated GFR is not appl icable for dialysis patien ts Craft Coordinator ID - PIAYA LCBC W/PLT COUNT & AUTO [id number] 04:32:38 Test Item Value Reference Range Interpretation Comments WHITE BLOOD CELL COUNT (BEAKER) 5.5 K/ L 3.5-10.5 (test code = 775) RED BLOOD CELL COUNT (BEAKER) 4.72 M/ L 4.63-6.08 (test code = 761) HEMOGLOBIN (BEAKER) (test code = 15.0 GM/DL 13.7-17.5 410) HEMATOCRIT (BEAKER) (test code = 43.2 % 40.1-51.0 411) MEAN CORPUSCULAR VOLUME (BEAKER) 92 fL 79-92 (test code = 753) MEAN CORPUSCULAR HEMOGLOBIN 31.8 pg 25.7-32.2 (BEAKER) (test code = 751) MEAN CORPUSCULAR HEMOGLOBIN CONC 34.7 GM/DL 32.3-36.5 (BEAKER) (test code = 752) RED CELL DISTRIBUTION WIDTH 13.1 % 11.6-14.4 (BEAKER) (test code = 412) PLATELET COUNT (BEAKER) (test 169 K/CU MM 150-450 code = 756) MEAN PLATELET VOLUME (BEAKER) 10.0 fL 9.4-12.4 (test code = 754) NUCLEATED RED BLOOD CELLS 0 /100 WBC 0-0 (BEAKER) (test code = 413) NEUTROPHILS RELATIVE PERCENT 44 % (BEAKER) (test code = 429) LYMPHOCYTES RELATIVE PERCENT 36 % (BEAKER) (test code = 430) MONOCYTES RELATIVE PERCENT 15 % (BEAKER) (test code = 431) EOSINOPHILS RELATIVE PERCENT 4 % (BEAKER) (test code = 432) BASOPHILS RELATIVE PERCENT 1 % (BEAKER) (test code = 437) NEUTROPHILS ABSOLUTE COUNT 2.42 K/ L 1.78-5.38 (BEAKER) (test code = 670) LYMPHOCYTES ABSOLUTE COUNT 1.96 K/ L 1.32-3.57 (BEAKER) (test code = 414) MONOCYTES ABSOLUTE COUNT (BEAKER) 0.81 K/ L 0.30-0.82 (test code = 415) EOSINOPHILS ABSOLUTE COUNT 0.22 K/ L 0.04-0.54 (BEAKER) (test code = 416) BASOPHILS ABSOLUTE COUNT (BEAKER) 0.06 K/ L 0.01-0.08 (test code = 417) IMMATURE GRANULOCYTES-RELATIVE 0.20 % 0.00-1.00 PERCENT (BEAKER) (test code = 2801) POCT-GLUCOSE [id number] 20:55:14 Test Item Value Reference Range Interpretation Comments POC-GLUCOSE METER 103 mg/dL 70-110 : TESTED A T [facility] 6720 (BEAKER) (test code = [facility], 153) 65823: Craft Coordinator/Techni ilir ID = [id number] for SUDHA NEWMAN POCT-GLUCOSE [id number] 17:10:50 Test Item Value Reference Range Interpretation Comments POC-GLUCOSE METER 102 mg/dL 70-110 : TESTED A T [facility] 6720 (BEAKER) (test code = [facility], 1538) 15138: Craft Coordinator/Techni ilir ID = [id number] for FLORA DASILVA, JORDANANEJEROME POCT-GLUCOSE [id number] 11:36:44 Test Item Value Reference Range Interpretation Comments POC-GLUCOSE METER 81 mg/dL 70-110 : TESTED A T [facility] 6720 (BEAKER) (test code = [facility], 1538) 58226: Craft Coordinator/Techni ilir ID = [id number] for WILL IAMS, TYNEKA SARS-CoV2/RT-PCR (Asymptomatic ONLY)2022-06-06 09:22:33 Test Item Value Reference Interpretation Comments Range SARS-COV2/RT-PCR Negative Negative The SARS-Co V-2 (test code = target nucleic 27476-0) acids are not detected in thi s specimen. Negat adam results do not preclude SARS-C oV-2 infection and should not be u sed as the sole bas is for patient management decisions. Nega tive results must be combined with clinical observations, patient history , and epidemiolog ical information. A false negative result may occu r if a specimen is improperly collected, transported or handled. This S ARS CoV-2 test is a rapid, real-richard e RT-PCR test intended for e qualitative detection of nucleic acid fr om SARS-CoV-2 in a nasopharyngeal swab specimen colle chely from individual s suspected of COVID-19 by the ir healthcare provider. JUANA (test code = This test has been JUANA) authorized by FDA under an EUA for use by authorized laboratories. This test is only authorized for the duration of the declaration that circumstances exist justifying the authorization of emergency use of in vitro diagnostic tests for detection and/or diagnosis of COVID-19 under Section 564(b)(1) of the Federal Food, Drug and Cosmetic Act, 21 U.S.C. 360bbb-3(b)(1), unless the authorization is terminated or revoked sooner. Fact Sheet for Healthcare Providers: https://www.[employer]/Documents/Xp ert%20Xpress%20SAR S%20CoV-2/Fact%20S heets/302-3802%20S ARS-COV-2%20HEALTH CARE%20PROVIDERS%2 0FACT%20SHEET.pdf Fact Sheet for Healthcare Patients: https://www.[employer]/Documents/Xp ert%20Xpress%20SAR S%20CoV-2/Fact%20S heets/302-3801%20S ARS-COV-2%20PATIEN T%20FACT%20SHEET.p df Lab Interpretation Normal (test code = 50958-5) [facility]2022-06-06 09:22:33 Test Item Value Reference Range Interpretation Comments SARS-COV2/RT-PCR Negative Negative The SARS-Co V-2 target (test code = nucleic acids a re not [id number]) detected in thi s specimen. Negative result s do not preclude SARS-C oV-2 infection and s hould not be used as the rosita e basis for patient managem ent decisions. Nega tive results must be combine d with clinical observ ations, patient history , and epidemiological information. A false negativ e result may occur if a spec imen is improperly cecy ected, transported or handled. This SARS CoV-2 test is a rapid, real-time RT-PC R test intended for e qualitative detection of nu cleic acid from SARS-CoV-2 in a nasopharyngeal swab specimen collected from individuals suspected of CO VID-19 by [facility]. This test has been authorized by FDA under an EUA for use by authorized laboratories. This test is only authorized for the duration of the declaration that circumstances exist justifying the authorization of emergency use of in vitro diagnostic tests for detection and/or diagnosis of COVID-19 under Section 564(b)(1) of the Federal Food, Drug and Cosmetic Act, 21 U.S.C. 360bbb-3(b)(1), unless the authorization is terminated or revoked sooner. Fact Sheet for Healthcare Providers: https://www.[employer].Balakam m/Documents/Xpert%20Xpress%20SARS%20CoV-2/Fact%20Sheets/302-3802%01NWTV-NHQ-4%20 HEALTHCARE%20PROVIDERS%20FACT%20SHEET.pdf Fact Sheet for Healthcare Patients: https://www.iubenda/Documents/Xpert%20Xp ress%20SARS%20CoV-2/Fact%20Sheets/302-3801%98ZXDQ-PRQ-7%20PATIENT%20FACT%20SHEET .pdfPOCT-GLUCOSE [id number] 07:37:53 Test Item Value Reference Range Interpretation Comments POC-GLUCOSE METER 96 mg/dL 70-110 : TESTED A T [facility] ([facility]) (test code = [facility] [place], 1538) 418[address]: Craft Coordinator/Techni ilir ID = [id number] for LATANYA KRISHNAMURTHY BASIC METABOLIC [id number] 06:34:19 Test Item Value Reference Range Interpretation Comments SODIUM (SANAM) 133 meq/L 136-145 L (test code = 381) POTASSIUM 4.3 meq/L 3.5-5.1 (BEAKER) (test code = 379) CHLORIDE (BEAKER) 104 meq/L 98-107 (test code = 382) CO2 (BEAKER) 21 meq/L 22-29 L (test code = 355) BLOOD UREA 15 mg/dL 7-21 NITROGEN (BEAKER) (test code = 354) CREATININE 0.79 mg/dL 0.57-1.25 (BEAKER) (test code = 358) GLUCOSE RANDOM 85 mg/dL 70-105 (BEAKER) (test code = 652) CALCIUM (BEAKER) 9.3 mg/dL 8.4-10.2 (test code = 697) EGFR (BEAKER) 101 Interpretatio n of eGFR (test code = mL/min/1.73 values Stage De scription 1092) sq m Result G1 Allie l or high >=90 G2 Mildly decreased 60-89 G3a Mildl y to moderately 45-5 9 G3b Moderately to s everely 30-44 G4 Severl y decreased 15-29 G5 Kidney failure <15Reported eGF R is based on the CKD-EPI 2020 equation that d oes not use a race coefficientEsti mated GFR is not as accur ate as Creatinine Brigitte merchant in predicting glom erular filtration rate . Estimated GFR is not appl icable for dialysis patien ts Craft Coordinator ID - PIAYA LCBC W/PLT COUNT & AUTO [id number] 05:38:02 Test Item Value Reference Range Interpretation Comments WHITE BLOOD CELL COUNT (BEAKER) 6.1 K/ L 3.5-10.5 (test code = 775) RED BLOOD CELL COUNT (BEAKER) 4.63 M/ L 4.63-6.08 (test code = 761) HEMOGLOBIN (BEAKER) (test code = 14.7 GM/DL 13.7-17.5 410) HEMATOCRIT (BEAKER) (test code = 42.4 % 40.1-51.0 411) MEAN CORPUSCULAR VOLUME (BEAKER) 92 fL 79-92 (test code = 753) MEAN CORPUSCULAR HEMOGLOBIN 31.7 pg 25.7-32.2 (BEAKER) (test code = 751) MEAN CORPUSCULAR HEMOGLOBIN CONC 34.7 GM/DL 32.3-36.5 (BEAKER) (test code = 752) RED CELL DISTRIBUTION WIDTH 13.2 % 11.6-14.4 (BEAKER) (test code = 412) PLATELET COUNT (BEAKER) (test 167 K/CU MM 150-450 code = 756) MEAN PLATELET VOLUME (BEAKER) 10.0 fL 9.4-12.4 (test code = 754) NUCLEATED RED BLOOD CELLS 0 /100 WBC 0-0 (BEAKER) (test code = 413) NEUTROPHILS RELATIVE PERCENT 51 % (BEAKER) (test code = 429) LYMPHOCYTES RELATIVE PERCENT 32 % (BEAKER) (test code = 430) MONOCYTES RELATIVE PERCENT 13 % (BEAKER) (test code = 431) EOSINOPHILS RELATIVE PERCENT 3 % (BEAKER) (test code = 432) BASOPHILS RELATIVE PERCENT 1 % (BEAKER) (test code = 437) NEUTROPHILS ABSOLUTE COUNT 3.08 K/ L 1.78-5.38 (BEAKER) (test code = 670) LYMPHOCYTES ABSOLUTE COUNT 1.96 K/ L 1.32-3.57 (BEAKER) (test code = 414) MONOCYTES ABSOLUTE COUNT (BEAKER) 0.81 K/ L 0.30-0.82 (test code = 415) EOSINOPHILS ABSOLUTE COUNT 0.18 K/ L 0.04-0.54 (BEAKER) (test code = 416) BASOPHILS ABSOLUTE COUNT (BEAKER) 0.05 K/ L 0.01-0.08 (test code = 417) IMMATURE GRANULOCYTES-RELATIVE 0.20 % 0.00-1.00 PERCENT (BEAKER) (test code = 2801) POCT-GLUCOSE [id number] 21:00:32 Test Item Value Reference Range Interpretation Comments POC-GLUCOSE METER 122 mg/dL 70-110 H : TESTED A T [facility] 6720 (BEAKER) (test code = [facility], 1538) 83484: Craft Coordinator/Techni ilir ID = [id number] for HENRIQUE HERNANDEZ POCT-GLUCOSE [id number] 12:05:11 Test Item Value Reference Range Interpretation Comments POC-GLUCOSE METER 101 mg/dL 70-110 : TESTED A T [facility] 6720 (BEAKER) (test code = [facility], 1538) 33325: Craft Coordinator/Techni ilir ID = [id number] for HU NTER, HIWITHA POCT-GLUCOSE [id number] 06:58:14 Test Item Value Reference Range Interpretation Comments POC-GLUCOSE METER 99 mg/dL 70-110 : TESTED A T [facility] 67[facility] (BEAKER) (test code = [facility] [place], 1538) 28938: Craft Coordinator/Techni ilir ID = [id number] for KERMIT LOYD, HIWITHA BASIC METABOLIC [id number] 05:22:21 Test Item Value Reference Range Interpretation Comments SODIUM (BEAKER) 131 meq/L 136-145 L (test code = 381) POTASSIUM 4.6 meq/L 3.5-5.1 (BEAKER) (test code = 379) CHLORIDE (BEAKER) 102 meq/L 98-107 (test code = 382) CO2 (BEAKER) 22 meq/L 22-29 (test code = 355) BLOOD UREA 16 mg/dL 7-21 NITROGEN (BEAKER) (test code = 354) CREATININE 0.99 mg/dL 0.57-1.25 (BEAKER) (test code = 358) GLUCOSE RANDOM 95 mg/dL 70-105 (BEAKER) (test code = 652) CALCIUM (BEAKER) 9.7 mg/dL 8.4-10.2 (test code = 697) EGFR (BEAKER) 87 Interpretatio n of eGFR (test code = mL/min/1.73 values Stage De scription 1092) sq m Result G1 Allie l or high >=90 G2 Mildly decreased 60-89 G3a Mildl y to moderately 45-5 9 G3b Moderately to s everely 30-44 G4 Sever ly decreased 15-29 G5 Kidney failure <15Repo rted eGFR is based on the CKD-EPI 2021 equation t hat does not use a race coefficientEsti mated GFR is not as accur ate as Creatinine Brigitte merchant in predicting glom erular filtration rate . Estimated GFR is not appl icable for dialysis patien ts Craft Coordinator ID - PIAYA LCBC W/PLT COUNT & AUTO [id number] 04:36:55 Test Item Value Reference Range Interpretation Comments WHITE BLOOD CELL COUNT (BEAKER) 6.6 K/ L 3.5-10.5 (test code = 775) RED BLOOD CELL COUNT (BEAKER) 4.77 M/ L 4.63-6.08 (test code = 761) HEMOGLOBIN (BEAKER) (test code = 15.2 GM/DL 13.7-17.5 410) HEMATOCRIT (BEAKER) (test code = 45.1 % 40.1-51.0 411) MEAN CORPUSCULAR VOLUME (BEAKER) 95 fL 79-92 H (test code = 753) MEAN CORPUSCULAR HEMOGLOBIN 31.9 pg 25.7-32.2 (BEAKER) (test code = 751) MEAN CORPUSCULAR HEMOGLOBIN CONC 33.7 GM/DL 32.3-36.5 (BEAKER) (test code = 752) RED CELL DISTRIBUTION WIDTH 13.3 % 11.6-14.4 (BEAKER) (test code = 412) PLATELET COUNT (BEAKER) (test 150 K/CU MM 150-450 code = 756) MEAN PLATELET VOLUME (BEAKER) 9.5 fL 9.4-12.4 (test code = 754) NUCLEATED RED BLOOD CELLS 0 /100 WBC 0-0 (BEAKER) (test code = 413) NEUTROPHILS RELATIVE PERCENT 40 % (BEAKER) (test code = 429) LYMPHOCYTES RELATIVE PERCENT 39 % (BEAKER) (test code = 430) MONOCYTES RELATIVE PERCENT 15 % (BEAKER) (test code = 431) EOSINOPHILS RELATIVE PERCENT 4 % (BEAKER) (test code = 432) BASOPHILS RELATIVE PERCENT 1 % (BEAKER) (test code = 437) NEUTROPHILS ABSOLUTE COUNT 2.64 K/ L 1.78-5.38 (BEAKER) (test code = 670) LYMPHOCYTES ABSOLUTE COUNT 2.58 K/ L 1.32-3.57 (BEAKER) (test code = 414) MONOCYTES ABSOLUTE COUNT (BEAKER) 1.00 K/ L 0.30-0.82 H (test code = 415) EOSINOPHILS ABSOLUTE COUNT 0.28 K/ L 0.04-0.54 (BEAKER) (test code = 416) BASOPHILS ABSOLUTE COUNT (BEAKER) 0.06 K/ L 0.01-0.08 (test code = 417) IMMATURE GRANULOCYTES-RELATIVE 0.30 % 0.00-1.00 PERCENT (BEAKER) (test code = 2801) POCT-GLUCOSE [id number] 20:58:57 Test Item Value Reference Range Interpretation Comments POC-GLUCOSE METER 96 mg/dL 70-110 : TESTED A T [facility] 6720 (BEAKER) (test code = [facility] [place], 1538) 86698: Craft Coordinator/Techni ilir ID = [id number] for HENRIQUE PLASCENCIA POCT-GLUCOSE [id number] 16:29:29 Test Item Value Reference Range Interpretation Comments POC-GLUCOSE METER 137 mg/dL 70-110 H : TESTED A T [facility] 6720 ([facility]) (test code = [facility] Abelino [facility], 1538) 42445: Craft Coordinator/Techni ilir ID = [id number] for HU NTER, HIWITHA POCT-GLUCOSE [id number] 11:41:40 Test Item Value Reference Range Interpretation Comments POC-GLUCOSE METER 115 mg/dL 70-110 H : TESTED A T [facility] 67[facility] ([facility]) (test code = [facility] Abelino [facility], 1538) 65329: Craft Coordinator/Techni ilir ID = [id number] for HU NTER, HIWITHA CT, CHEST, WITH [id number] 07:53:00Reason for exam:->concern for metastatic diseaseWhat is the patient's sedation requirement?->No Sedation [facility] : 1960 Sex: MFINAL REPORT CT Chest, abdomen, and pelvis with contrast History:History of colon cancer, chest pain, abdominal pain Comparison:CT abdomen and pelvis 05/30/2022 Technique: serial axial imaging was performed following up to 100cc of non ionic iodinated intravenous contrast as per departmental protocol. Multiplanar images are reconstructed and reviewed when indicated. This CT examination isperformed using one or more of the following dose reduction techniques: Automated exposure control, adjustment of the mA and /or kV according to patient size, and/or use of iterative reconstruction technique. Findings:No mediastinal or hilar lymphadenopathy. Calcified lymph nodes within the left hilumare consistent with previous granulomatous disease. Normal size heart. No pericardial effusion. No thoracic aortic aneurysm or dissection. No central pulmonary arterial filling defect. Patent central airways. No pleural effusion or pneumothorax. A calcified granuloma is seen within the left lower lobe, which is consistent with previous granulomatous disease. Underlying pulmonary emphysema is noted. There are numerous bilateral noncalcified pulmonary nodules, the largest of which are seen within the bilateral lower lobes. These measure up to 8 mm in size. The lungs are otherwise clear. Unremarkable appearance of pancreas and spleen. Unremarkable appearance of liver and gallbladder. There are multiple bilateral simple appearing renal cysts, which measure up to 2.6 cm in size. These require no further imaging follow-up. No hydronephrosis or concerning renal mass. . No small or large bowel obstructio n. No apparent bowel wall thickening. No findings to indicate acute appendicitis. No free fluid or lymphadenopathy. No abdominal aortic aneurysm. 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 No aggressive osseous lesion. Impression: 1. Multiple bilateral noncalcified pulmonary nodules measure up to 8 mm in size and may represent multiple noncalcified granulomas or metastatic disease. A short-term follow-up chest CT in 3 months time is recommended.2. No evidence of metastatic disease in the abdomen or pelvis.3. No acute findings in the chest, abdomen, or pelvis.4. 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 Signed: Jeramy Sarabia [facility] Verified Date/Time: 06/04/2022 07:53:54 CT, [id number] 07:53:00Unlisted Reason for Exam - Click Yes and Enter Reason Below- >YesUnlisted Reason for Exam->ischemic bowel and hx of colon cancerIs this for enterography?->NoWill this procedure require oral contrast?->Yes [facility] : 1960 Sex: MFINAL REPORT CT Chest, abdomen, and pelvis with contrast History:History of colon cancer, chest pain, abdominal pain Comparison:CT abdomen and pelvis 05/30/2022 Technique: serial axial imaging was performed following up to 100cc of non ionic iodinated intravenous contrast as per departmental protocol. Multiplanar images are reconstructed and reviewed when indicated. This CT examination isperformed using one or more of the following dose reduction techniques: Automated exposure control, adjustment of the mA and /or kV according to patient size, and/or use of iterative reconstruction technique. Findings:No mediastinal or hilar lymphadenopathy. Calcified lymph nodes within the left hilumare consistent with previous granulomatous disease. Normal size heart. No pericardial effusion. No thoracic aortic aneurysm or dissection. No central pulmonary arterial filling defect. Patent central airways. No pleural effusion or pneumothorax. A calcified granuloma is seen within the left lower lobe, which is consistent with previous granulomatous disease. Underlying pulmonary emphysema is noted. There are numerous bilateral noncalcified pulmonary nodules, the largest of which are seen within the bilateral lower lobes. These measure up to 8 mm in size. The lungs are otherwise clear. Unremarkable appearance of pancreas and spleen. Unremarkable appearance of liver and gallbladder. There are multiple bilateral simple appearing renal cysts, which measure up to 2.6 cm in size. These require no further imaging follow-up. No hydronephrosis or concerning renal mass. . No small or large bowel obstructio n. No apparent bowel wall thickening. No findings to indicate acute appendicitis. No free fluid or lymphadenopathy. No abdominal aortic aneurysm. 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 No aggressive osseous lesion. Impression: 1. Multiple bilateral noncalcified pulmonary nodules measure up to 8 mm in size and may represent multiple noncalcified granulomas or metastatic disease. A short-term follow-up chest CT in 3 months time is recommended.2. No evidence of metastatic disease in the abdomen or pelvis.3. No acute findings in the chest, abdomen, or pelvis.4. 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 Signed: Jeramy Sarabia MDReport Verified Date/Time: 06/04/2022 07:53:54 POCT-GLUCOSE [id number] 06:55:58 Test Item Value Reference Range Interpretation Comments POC-GLUCOSE METER 95 mg/dL 70-110 : TESTED A T BSC 6720 (BEAKER) (test code = [place], 1538) [address]270: Craft Coordinator/Techni ilir ID = [id number] for MATIAS WOODRUFF BASIC METABOLIC [id number] 06:20:56 Test Item Value Reference Range Interpretation Comments SODIUM (BEAKER) 131 meq/L 136-145 L (test code = 381) POTASSIUM 4.2 meq/L 3.5-5.1 (BEAKER) (test code = 379) CHLORIDE (BEAKER) 105 meq/L 98-107 (test code = 382) CO2 (BEAKER) 17 meq/L 22-29 L (test code = 355) BLOOD UREA 12 mg/dL 7-21 NITROGEN (BEAKER) (test code = 354) CREATININE 0.76 mg/dL 0.57-1.25 (BEAKER) (test code = 358) GLUCOSE RANDOM 90 mg/dL 70-105 (BEAKER) (test code = 652) CALCIUM (BEAKER) 9.5 mg/dL 8.4-10.2 (test code = 697) EGFR (BEAKER) 102 Interpretatio n of eGFR (test code = mL/min/1.73 values Stage De scription 1092) sq m Result G1 Norm al or high >=90 G2 Mildly decreased 60-89 G3a Mildl y to moderately 45-5 9 G3b Moderately to s everely 30-44 G4 Severl y decreased 15-29 G5 Kidney failure <15Reported eGF R is based on the CKD-EPI 2020 equation that d oes not use a race coefficientEsti mated GFR is not as accur ate as Creatinine Brigitte shonda in predicting glom erular filtration rate . Estimated GFR is not appl icable for dialysis patien ts Craft Coordinator ID - BSCBC W/PLT COUNT & AUTO [id number] 05:27:59 Test Item Value Reference Range Interpretation Comments WHITE BLOOD CELL COUNT (BEAKER) 5.9 K/ L 3.5-10.5 (test code = 775) RED BLOOD CELL COUNT (BEAKER) 4.95 M/ L 4.63-6.08 (test code = 761) HEMOGLOBIN (BEAKER) (test code = 15.9 GM/DL 13.7-17.5 410) HEMATOCRIT (BEAKER) (test code = 45.5 % 40.1-51.0 411) MEAN CORPUSCULAR VOLUME (BEAKER) 92 fL 79-92 (test code = 753) MEAN CORPUSCULAR HEMOGLOBIN 32.1 pg 25.7-32.2 (BEAKER) (test code = 751) MEAN CORPUSCULAR HEMOGLOBIN CONC 34.9 GM/DL 32.3-36.5 (BEAKER) (test code = 752) RED CELL DISTRIBUTION WIDTH 13.5 % 11.6-14.4 (BEAKER) (test code = 412) PLATELET COUNT (BEAKER) (test 158 K/CU MM 150-450 code = 756) MEAN PLATELET VOLUME (BEAKER) 9.9 fL 9.4-12.4 (test code = 754) NUCLEATED RED BLOOD CELLS 0 /100 WBC 0-0 (BEAKER) (test code = 413) NEUTROPHILS RELATIVE PERCENT 46 % (BEAKER) (test code = 429) LYMPHOCYTES RELATIVE PERCENT 37 % (BEAKER) (test code = 430) MONOCYTES RELATIVE PERCENT 12 % (BEAKER) (test code = 431) EOSINOPHILS RELATIVE PERCENT 4 % (BEAKER) (test code = 432) BASOPHILS RELATIVE PERCENT 1 % (BEAKER) (test code = 437) NEUTROPHILS ABSOLUTE COUNT 2.71 K/ L 1.78-5.38 (BEAKER) (test code = 670) LYMPHOCYTES ABSOLUTE COUNT 2.14 K/ L 1.32-3.57 (BEAKER) (test code = 414) MONOCYTES ABSOLUTE COUNT (BEAKER) 0.72 K/ L 0.30-0.82 (test code = 415) EOSINOPHILS ABSOLUTE COUNT 0.23 K/ L 0.04-0.54 (BEAKER) (test code = 416) BASOPHILS ABSOLUTE COUNT (BEAKER) 0.05 K/ L 0.01-0.08 (test code = 417) IMMATURE GRANULOCYTES-RELATIVE 0.20 % 0.00-1.00 PERCENT (BEAKER) (test code = 2801) POCT-GLUCOSE [id number] 21:20:45 Test Item Value Reference Range Interpretation Comments POC-GLUCOSE METER 115 mg/dL 70-110 H : TESTED A T [facility] 6720 (BEAKER) (test code = [facility], [facility]8) [address]: Craft Coordinator/Techni ilir ID = [id number] for Es Thaddeus hatchia POCT-GLUCOSE [id number] 17:16:19 Test Item Value Reference Range Interpretation Comments POC-GLUCOSE METER 114 mg/dL 70-110 H : TESTED A T [facility] 6720 (BEAKER) (test code = [facility], [facility]8) 169[address]: Craft Coordinator/Techni ilir ID = [id number] for Am ador, Doe POCT-GLUCOSE [id number] 11:17:49 Test Item Value Reference Range Interpretation Comments POC-GLUCOSE METER 117 mg/dL 70-110 H : TESTED A T [facility] 6720 (BEAKER) (test code = [facility], 1538) 90477: Craft Coordinator/Techni ilir ID = [id number] for Am ador, Doe POCT-GLUCOSE [id number] 07:38:05 Test Item Value Reference Range Interpretation Comments POC-GLUCOSE METER 106 mg/dL 70-110 : TESTED A T [facility] 6720 (BEAKER) (test code = [facility], [facility]8) 67[address]: Craft Coordinator/Techni ilir ID = [id number] for Am ador, Doe BASIC METABOLIC [id number] 05:34:55 Test Item Value Reference Range Interpretation Comments SODIUM (BEAKER) 136 meq/L 136-145 (test code = 381) POTASSIUM 4.4 meq/L 3.5-5.1 (BEAKER) (test code = 379) CHLORIDE (BEAKER) 107 meq/L 98-107 (test code = 382) CO2 (BEAKER) 20 meq/L 22-29 L (test code = 355) BLOOD UREA 12 mg/dL 7-21 NITROGEN (BEAKER) (test code = 354) CREATININE 0.80 mg/dL 0.57-1.25 (BEAKER) (test code = 358) GLUCOSE RANDOM 81 mg/dL 70-105 (BEAKER) (test code = 652) CALCIUM (BEAKER) 9.2 mg/dL 8.4-10.2 (test code = 697) EGFR (BEAKER) 101 Interpretatio n of eGFR (test code = mL/min/1.73 values Stage De scription 1092) sq m Result G1 Allie l or high >=90 G2 Mildly decreased 60-89 G3a Mildl y to moderately 45-5 9 G3b Moderately to s everely 30-44 G4 Severl y decreased 15-29 G5 Kidney failure <15Reported eGF R is based on the CKD-EPI 2020 equation that d oes not use a race coefficientEsti mated GFR is not as accur ate as Creatinine Brigitte shonda in predicting glom erular filtration rate . Estimated GFR is not appl icable for dialysis patien ts Craft Coordinator ID - ALEKSEY MCBC W/PLT COUNT & AUTO [id number] 05:08:48 Test Item Value Reference Range Interpretation Comments WHITE BLOOD CELL COUNT (BEAKER) 6.2 K/ L 3.5-10.5 (test code = 775) RED BLOOD CELL COUNT (BEAKER) 4.87 M/ L 4.63-6.08 (test code = 761) HEMOGLOBIN (BEAKER) (test code = 15.9 GM/DL 13.7-17.5 410) HEMATOCRIT (BEAKER) (test code = 46.0 % 40.1-51.0 411) MEAN CORPUSCULAR VOLUME (BEAKER) 95 fL 79-92 H (test code = 753) MEAN CORPUSCULAR HEMOGLOBIN 32.6 pg 25.7-32.2 H (BEAKER) (test code = 751) MEAN CORPUSCULAR HEMOGLOBIN CONC 34.6 GM/DL 32.3-36.5 (BEAKER) (test code = 752) RED CELL DISTRIBUTION WIDTH 13.6 % 11.6-14.4 (BEAKER) (test code = 412) PLATELET COUNT (BEAKER) (test 141 K/CU MM 150-450 L code = 756) MEAN PLATELET VOLUME (BEAKER) 9.9 fL 9.4-12.4 (test code = 754) NUCLEATED RED BLOOD CELLS 0 /100 WBC 0-0 (BEAKER) (test code = 413) NEUTROPHILS RELATIVE PERCENT 41 % (BEAKER) (test code = 429) LYMPHOCYTES RELATIVE PERCENT 41 % (BEAKER) (test code = 430) MONOCYTES RELATIVE PERCENT 13 % (BEAKER) (test code = 431) EOSINOPHILS RELATIVE PERCENT 4 % (BEAKER) (test code = 432) BASOPHILS RELATIVE PERCENT 1 % (BEAKER) (test code = 437) NEUTROPHILS ABSOLUTE COUNT 2.55 K/ L 1.78-5.38 (BEAKER) (test code = 670) LYMPHOCYTES ABSOLUTE COUNT 2.55 K/ L 1.32-3.57 (BEAKER) (test code = 414) MONOCYTES ABSOLUTE COUNT (BEAKER) 0.82 K/ L 0.30-0.82 (test code = 415) EOSINOPHILS ABSOLUTE COUNT 0.25 K/ L 0.04-0.54 (BEAKER) (test code = 416) BASOPHILS ABSOLUTE COUNT (BEAKER) 0.05 K/ L 0.01-0.08 (test code = 417) IMMATURE GRANULOCYTES-RELATIVE 0.30 % 0.00-1.00 PERCENT (BEAKER) (test code = 2801) POCT-GLUCOSE [id number] 21:02:44 Test Item Value Reference Range Interpretation Comments POC-GLUCOSE METER 122 mg/dL 70-110 H : TESTED A [facility] ([facility]) (test code = [facility], 1538) 69188: Craft Coordinator/Techni ilir ID = [id number] for Jamila hatch Ashley POCT-GLUCOSE [id number] 14:54:50 Test Item Value Reference Range Interpretation Comments POC-GLUCOSE METER 97 mg/dL 70-110 : TESTED A [facility] ([facility]) (test code = [facility], 1538) 65954: Craft Coordinator/Techni ilir ID = [id number] for DERRICK STOREY POC ACTIVATED CLOTTING [id number] 14:04:22 Test Item Value Reference Range Interpretation Comments Activated Clotting Time 260 sec : 74 -137 seconds, (test code = 3184-9) Baselin e: TESTED AT [facility] 67[address] [facility], 770 30: Craft Coordinator/Techni ilir ID = [id number] for Ga rza (contract), [facility] on [id number] 14:04:22 Test Item Value Reference Range Interpretation Comments ACTIVATED CLOTTING TIME 260 sec : 74 -137 seconds, (BEAKER) (test code = Reji ne: TESTED AT 441) [facility] 67[address] [facility], 770 30: Craft Coordinator/Techni ilir ID = [id number] for Ga rza (contract), Aar on POCT-GLUCOSE [id number] 11:19:31 Test Item Value Reference Range Interpretation Comments POC-GLUCOSE METER 96 mg/dL 70-110 : TESTED A T [facility] 6720 (BEAKER) (test code = [facility], 1538) 40754: Craft Coordinator/Techni ilir ID = [id number] for Amad or, Doe POCT-GLUCOSE [id number] 08:05:08 Test Item Value Reference Range Interpretation Comments POC-GLUCOSE METER 98 mg/dL 70-110 : TESTED A T [facility] 6720 (BEAKER) (test code = [facility], 1538) 79285: Craft Coordinator/Techni ilir ID = [id number] for Amad or, Doe CBC W/PLT COUNT & AUTO [id number] 06:08:47 Test Item Value Reference Range Interpretation Comments WHITE BLOOD CELL COUNT (BEAKER) 6.0 K/ L 3.5-10.5 (test code = 775) RED BLOOD CELL COUNT (BEAKER) 5.00 M/ L 4.63-6.08 (test code = 761) HEMOGLOBIN (BEAKER) (test code = 15.9 GM/DL 13.7-17.5 410) HEMATOCRIT (BEAKER) (test code = 47.2 % 40.1-51.0 411) MEAN CORPUSCULAR VOLUME (BEAKER) 94 fL 79-92 H (test code = 753) MEAN CORPUSCULAR HEMOGLOBIN 31.8 pg 25.7-32.2 (BEAKER) (test code = 751) MEAN CORPUSCULAR HEMOGLOBIN CONC 33.7 GM/DL 32.3-36.5 (BEAKER) (test code = 752) RED CELL DISTRIBUTION WIDTH 13.5 % 11.6-14.4 (BEAKER) (test code = 412) PLATELET COUNT (BEAKER) (test 153 K/CU MM 150-450 code = 756) MEAN PLATELET VOLUME (BEAKER) 10.1 fL 9.4-12.4 (test code = 754) NUCLEATED RED BLOOD CELLS 0 /100 WBC 0-0 (BEAKER) (test code = 413) NEUTROPHILS RELATIVE PERCENT 46 % (BEAKER) (test code = 429) LYMPHOCYTES RELATIVE PERCENT 37 % (BEAKER) (test code = 430) MONOCYTES RELATIVE PERCENT 13 % (BEAKER) (test code = 431) EOSINOPHILS RELATIVE PERCENT 3 % (BEAKER) (test code = 432) BASOPHILS RELATIVE PERCENT 1 % (BEAKER) (test code = 437) NEUTROPHILS ABSOLUTE COUNT 2.78 K/ L 1.78-5.38 (BEAKER) (test code = 670) LYMPHOCYTES ABSOLUTE COUNT 2.22 K/ L 1.32-3.57 (BEAKER) (test code = 414) MONOCYTES ABSOLUTE COUNT (BEAKER) 0.75 K/ L 0.30-0.82 (test code = 415) EOSINOPHILS ABSOLUTE COUNT 0.19 K/ L 0.04-0.54 (BEAKER) (test code = 416) BASOPHILS ABSOLUTE COUNT (BEAKER) 0.05 K/ L 0.01-0.08 (test code = 417) IMMATURE GRANULOCYTES-RELATIVE 0.20 % 0.00-1.00 PERCENT (BEAKER) (test code = 2801) BASIC METABOLIC [id number] 05:29:11 Test Item Value Reference Range Interpretation Comments SODIUM (BEAKER) 136 meq/L 136-145 (test code = 381) POTASSIUM 4.3 meq/L 3.5-5.1 (BEAKER) (test code = 379) CHLORIDE (BEAKER) 106 meq/L 98-107 (test code = 382) CO2 (BEAKER) 23 meq/L 22-29 (test code = 355) BLOOD UREA 10 mg/dL 7-21 NITROGEN (BEAKER) (test code = 354) CREATININE 0.76 mg/dL 0.57-1.25 (BEAKER) (test code = 358) GLUCOSE RANDOM 88 mg/dL 70-105 (BEAKER) (test code = 652) CALCIUM (BEAKER) 9.4 mg/dL 8.4-10.2 (test code = 697) EGFR (BEAKER) 102 Interpretatio n of eGFR (test code = mL/min/1.73 values Stage De scription 1092) sq m Result G1 Norm al or high >=90 G2 Mildly decreased 60-89 G3a Mildl y to moderately 45-5 9 G3b Moderately to s everely 30-44 G4 Severl y decreased 15-29 G5 Kidney failure <15Reported eGF R is based on the CKD-EPI 2020 equation that d oes not use a race coefficientEsti mated GFR is not as accur ate as Creatinine Brigitte shonda in predicting glom erular filtration rate . Estimated GFR is not appl icable for dialysis patien ts Craft Coordinator ID - EVELIA LPOCT-GLUCOSE [id number] 21:07:11 Test Item Value Reference Range Interpretation Comments POC-GLUCOSE METER 100 mg/dL 70-110 : TESTED A T [facility] 6720 (BEAKER) (test code = [facility], 1538) 93508: Craft Coordinator/Techni ilir ID = [id number] for MATHEUS ROD POCT-GLUCOSE [id number] 16:42:15 Test Item Value Reference Range Interpretation Comments POC-GLUCOSE METER 99 mg/dL 70-110 : TESTED A T [facility] 6720 (BEAKER) (test code = [facility], 1538) 55944: Craft Coordinator/Techni ilir ID = [id number] for LATANYA KRISHNAMURTHY POCT-GLUCOSE [id number] 12:34:23 Test Item Value Reference Range Interpretation Comments POC-GLUCOSE METER 115 mg/dL 70-110 H : TESTED A T [facility] 6720 (BEAKER) (test code = [facility], 1538) 82740: Craft Coordinator/Techni ilir ID = [id number] for LATANYA WALTER 2D Echo W/Doppler(CW/PW/Color)2022-06-01 10:23:04Ejection FractionSLEH ECHO HEARTLAB MKCKESSON CPAK[facility] CenterMAGNESIUM2022-11-21 07:44:37 Test Item Value Reference Range Interpretation Comments MAGNESIUM (BEAKER) (test code = 1.9 mg/dL 1.6-2.6 627) Craft Coordinator ID - MANPREET [id number] 07:44:37 Test Item Value Reference Range Interpretation Comments PHOSPHORUS (BEAKER) (test code = 3.5 mg/dL 2.3-4.7 604) Craft Coordinator ID - MANPREET GBASIC METABOLIC [id number] 07:44:36 Test Item Value Reference Range Interpretation Comments SODIUM (BEAKER) 137 meq/L 136-145 (test code = 381) POTASSIUM 4.8 meq/L 3.5-5.1 (BEAKER) (test code = 379) CHLORIDE (BEAKER) 107 meq/L 98-107 (test code = 382) CO2 (BEAKER) 24 meq/L 22-29 (test code = 355) BLOOD UREA 10 mg/dL 7-21 NITROGEN (BEAKER) (test code = 354) CREATININE 0.84 mg/dL 0.57-1.25 (BEAKER) (test code = 358) GLUCOSE RANDOM 85 mg/dL 70-105 (BEAKER) (test code = 652) CALCIUM (BEAKER) 8.9 mg/dL 8.4-10.2 (test code = 697) EGFR (BEAKER) 99 Interpretatio n of eGFR (test code = mL/min/1.73 values Stage De scription 1092) sq m Result G1 Allie l or high >=90 G2 Mildly decreased 60-89 G3a Mildl y to moderately 45-5 9 G3b Moderately to s everely 30-44 G4 Severl y decreased 15-29 G5 Kidney failure <15Reported eGF R is based on the CKD-EPI 2020 equation that d oes not use a race coefficientEsti mated GFR is not as accur ate as Creatinine Brigitte merchant in predicting glom erular filtration rate . Estimated GFR is not appl icable for dialysis patien ts Craft Coordinator ID - MANPREET GPOCT-GLUCOSE [id number] 07:37:57 Test Item Value Reference Range Interpretation Comments POC-GLUCOSE METER 101 mg/dL 70-110 : TESTED A T [facility] 67[address] (BEAKER) (test code = [place], 1538) 79868: Craft Coordinator/Techni ilir ID = [id number] for LATANYA WALTER CBC W/PLT COUNT & AUTO [id number] 05:49:58 Test Item Value Reference Range Interpretation Comments WHITE BLOOD CELL COUNT (BEAKER) 5.1 K/ L 3.5-10.5 (test code = 775) RED BLOOD CELL COUNT (BEAKER) 4.95 M/ L 4.63-6.08 (test code = 761) HEMOGLOBIN (BEAKER) (test code = 15.8 GM/DL 13.7-17.5 410) HEMATOCRIT (BEAKER) (test code = 46.1 % 40.1-51.0 411) MEAN CORPUSCULAR VOLUME (BEAKER) 93 fL 79-92 H (test code = 753) MEAN CORPUSCULAR HEMOGLOBIN 31.9 pg 25.7-32.2 (BEAKER) (test code = 751) MEAN CORPUSCULAR HEMOGLOBIN CONC 34.3 GM/DL 32.3-36.5 (BEAKER) (test code = 752) RED CELL DISTRIBUTION WIDTH 13.5 % 11.6-14.4 (BEAKER) (test code = 412) PLATELET COUNT (BEAKER) (test 141 K/CU MM 150-450 L code = 756) MEAN PLATELET VOLUME (BEAKER) 10.0 fL 9.4-12.4 (test code = 754) NUCLEATED RED BLOOD CELLS 0 /100 WBC 0-0 (BEAKER) (test code = 413) NEUTROPHILS RELATIVE PERCENT 43 % (BEAKER) (test code = 429) LYMPHOCYTES RELATIVE PERCENT 40 % (BEAKER) (test code = 430) MONOCYTES RELATIVE PERCENT 12 % (BEAKER) (test code = 431) EOSINOPHILS RELATIVE PERCENT 4 % (BEAKER) (test code = 432) BASOPHILS RELATIVE PERCENT 1 % (BEAKER) (test code = 437) NEUTROPHILS ABSOLUTE COUNT 2.19 K/ L 1.78-5.38 (BEAKER) (test code = 670) LYMPHOCYTES ABSOLUTE COUNT 2.01 K/ L 1.32-3.57 (BEAKER) (test code = 414) MONOCYTES ABSOLUTE COUNT (BEAKER) 0.61 K/ L 0.30-0.82 (test code = 415) EOSINOPHILS ABSOLUTE COUNT 0.18 K/ L 0.04-0.54 (BEAKER) (test code = 416) BASOPHILS ABSOLUTE COUNT (BEAKER) 0.05 K/ L 0.01-0.08 (test code = 417) IMMATURE GRANULOCYTES-RELATIVE 0.20 % 0.00-1.00 PERCENT (BEAKER) (test code = 2801) POCT-GLUCOSE [id number] 22:17:39 Test Item Value Reference Range Interpretation Comments POC-GLUCOSE METER 103 mg/dL 70-110 : TESTED A T [facility] 6720 (BEAKER) (test code = [facility], 153) 68470: Craft Coordinator/Techni ilir ID = [id number] for Misael ruiz (contract)Rishi POCT-GLUCOSE [id number] 17:17:44 Test Item Value Reference Range Interpretation Comments POC-GLUCOSE METER 109 mg/dL 70-110 : TESTED A T [facility] 6720 (BEAKER) (test code = [facility], 1538) 70056: Craft Coordinator/Techni ilir ID = [id number] for Eric Apple POCT-GLUCOSE [id number] 11:56:56 Test Item Value Reference Range Interpretation Comments POC-GLUCOSE METER 112 mg/dL 70-110 H : TESTED A T [facility] 6720 (BEAKER) (test code = [facility], 153) 62759: Craft Coordinator/Techni ilir ID = [id number] for MATIAS OLMSTEAD CBC W/PLT COUNT & AUTO [id number] 08:34:37 Test Item Value Reference Range Interpretation Comments WHITE BLOOD CELL COUNT (BEAKER) 6.2 K/ L 3.5-10.5 (test code = 775) RED BLOOD CELL COUNT (BEAKER) 4.96 M/ L 4.63-6.08 (test code = 761) HEMOGLOBIN (BEAKER) (test code = 15.8 GM/DL 13.7-17.5 410) HEMATOCRIT (BEAKER) (test code = 47.3 % 40.1-51.0 411) MEAN CORPUSCULAR VOLUME (BEAKER) 95 fL 79-92 H (test code = 753) MEAN CORPUSCULAR HEMOGLOBIN 31.9 pg 25.7-32.2 (BEAKER) (test code = 751) MEAN CORPUSCULAR HEMOGLOBIN CONC 33.4 GM/DL 32.3-36.5 (BEAKER) (test code = 752) RED CELL DISTRIBUTION WIDTH 13.5 % 11.6-14.4 (BEAKER) (test code = 412) PLATELET COUNT (BEAKER) (test 138 K/CU MM 150-450 L code = 756) MEAN PLATELET VOLUME (BEAKER) 10.3 fL 9.4-12.4 (test code = 754) NEUTROPHILS RELATIVE PERCENT 48 % (BEAKER) (test code = 429) LYMPHOCYTES RELATIVE PERCENT 38 % (BEAKER) (test code = 430) MONOCYTES RELATIVE PERCENT 11 % (BEAKER) (test code = 431) EOSINOPHILS RELATIVE PERCENT 3 % (BEAKER) (test code = 432) BASOPHILS RELATIVE PERCENT 1 % (BEAKER) (test code = 437) NEUTROPHILS ABSOLUTE COUNT 2.94 K/ L 1.78-5.38 (BEAKER) (test code = 670) LYMPHOCYTES ABSOLUTE COUNT 2.32 K/ L 1.32-3.57 (BEAKER) (test code = 414) MONOCYTES ABSOLUTE COUNT (BEAKER) 0.70 K/ L 0.30-0.82 (test code = 415) EOSINOPHILS ABSOLUTE COUNT 0.19 K/ L 0.04-0.54 (BEAKER) (test code = 416) BASOPHILS ABSOLUTE COUNT (BEAKER) 0.04 K/ L 0.01-0.08 (test code = 417) IMMATURE GRANULOCYTES-RELATIVE 0.00 % 0.00-1.00 PERCENT (BEAKER) (test code = 2801) HIGH SENSITIVITY TROPONIN [id number] 07:20:15 Test Item Value Reference Range Interpretation Comments HIGH SENSITIVITY 10 pg/ml See_Comment [Automated message] TROPONIN I (test code = The system which [id number]) generated this result transmitted ref erence range: <=35. Th e reference range was not used to int erpret this result as normal/abnormal . Craft Coordinator ID - MANPREET GThe VIDEO CONTROL ENGINEER STAT High Sensitivity Troponin-I results should be used in conjunction with other diagnostic information such as ECG, clinical observations and information, and patient symptoms to aid in the diagnosis of [place].RAD, CHEST, 1 VIEW, NON [id number] 07:06:00Reason for exam:- >new chest painShould this be performed at the bedside?->[facility] : 1960 Sex: MFINAL REPORT INDICATION: new severe RLQ pain COMPARISON: CT abdomen and pelvis 05/30/2022 TECHNIQUE: Single frontal view of the chest. Portable supine view of the abdomen. FINDINGS: CHEST:Lungs and pleura: There are some scattered faintly seen pulmonary nodules measuring up to at least 8 mm, better demonstrated on prior CT. No effusion.Heart and mediastinum: Normal heart size. Unremarkable mediastinal contours.Osseous structures: No acute abnormality.Other: None. ABDOMEN:Bowel gas pattern is nonspecific but nonobstructive. There are scattered distended (but not frankly dilated) loops of small bowel throughout the abdomen. There is persistent contrast opacification of the transverse andleft colon, suggestive of recent examination with oral contrast. Passage of oral contrast demonstrates that there is no obstruction. Although evaluation for free air is limited on portable supine radiograph, no free air is identified. IMPRESSION: 1.No new airspace consolidation.2.Previously noted pulmonary nodules described within the report of prior CT abdomen and pelvis 05/30/2022 are better evaluated by CT. Per that report, patient has recently undergone CT chest an outside institution. Thus, follow-up and chest CT within 3-6 months (versus correlation with normal staging CT examinations if there is known malignancy) is suggested.3.Scattered distended loops of small bowel. There is, however, contrast opacification of the colon (presumably due to recent administration of oral contrast). Thus, there is no bowel obstruction. This may represent a mild adynamic ileus given distention of small bowel loops. Signed: Tatyana Howe MDReport Verified Date/Time: 05/31/2022 07:06:21 , ABDOMEN/KUB, 1 VIEW [id number] 07:06:00Reason for exam:->new severe RLQ painShould this be performed at the bedside?->Yes [facility] : 1960 Sex: MFINAL REPORT INDICATION: new severe RLQ pain COMPARISON: CT abdomen and pelvis 05/30/2022 TECHNIQUE: Single frontal view of the chest. Portable supine view of the abdomen. FINDINGS: CHEST:Lungs and pleura: There are some scattered faintly seen pulmonary nodules measuring up to at least 8 mm, better demonstrated on prior CT. No effusion.Heart and mediastinum: Normal heart size. Unremarkable mediastinal contours.Osseous structures: No acute abnormality.Other: None. ABDOMEN:Bowel gas pattern is nonspecific but nonobstructive. There are scattered distended (but not frankly dilated) loops of small bowel throughout the abdomen. There is persistent contrast opacification of the transverse andleft colon, suggestive of recent examination with oral contrast. Passage of oral contrast demonstrates that there is no obstruction. Although evaluation for free air is limited on portable supine radiograph, no free air is identified. IMPRESSION: 1.No new airspace consolidation.2.Previously noted pulmonary nodules described within the report of prior CT abdomen and pelvis 05/30/2022 are better evaluated by CT. Per that report, patient has recently undergone CT chest an outside institution. Thus, follow-up and chest CT within 3-6 months (versus correlation with normal staging CT examinations if there is known malignancy) is suggested.3.Scattered distended loops of small bowel. There is, however, contrast opacification of the colon (presumably due to recent administration of oral contrast). Thus, there is no bowel obstruction. This may represent a mild adynamic ileus given distention of small bowel loops. Signed: Tatyana Howe MDReport Verified Date/Time: 05/31/2022 07:06:21 -GLUCOSE [id number] 07:05:02 Test Item Value Reference Range Interpretation Comments POC-GLUCOSE METER 103 mg/dL 70-110 : TESTED A T [facility] (BEAKER) (test code = [place], 1538) 12[address]: Craft Coordinator/Techni ilir ID = [id number] for HU NTER, HIWITHA [id number] 06:21:54 Test Item Value Reference Range Interpretation Comments PHOSPHORUS (BEAKER) (test code = 3.4 mg/dL 2.3-4.7 604) Craft Coordinator ID - MANPREET GBASIC METABOLIC [id number] 06:21:53 Test Item Value Reference Range Interpretation Comments SODIUM (BEAKER) 137 meq/L 136-145 (test code = 381) POTASSIUM 4.3 meq/L 3.5-5.1 (BEAKER) (test code = 379) CHLORIDE (BEAKER) 106 meq/L 98-107 (test code = 382) CO2 (BEAKER) 24 meq/L 22-29 (test code = 355) BLOOD UREA 13 mg/dL 7-21 NITROGEN (BEAKER) (test code = 354) CREATININE 0.85 mg/dL 0.57-1.25 (BEAKER) (test code = 358) GLUCOSE RANDOM 91 mg/dL 70-105 (BEAKER) (test code = 652) CALCIUM (BEAKER) 8.8 mg/dL 8.4-10.2 (test code = 697) EGFR (BEAKER) 99 Interpretatio n of eGFR (test code = mL/min/1.73 values Stage De scription 1092) sq m Result G1 Allie l or high >=90 G2 Mildly decreased 60-89 G3a Mildl y to moderately 45-5 9 G3b Moderately to s everely 30-44 G4 Severl y decreased 15-29 G5 Kidney failure <15Reported eGF R is based on the CKD-EPI 2020 equation that d oes not use a race coefficientEsti mated GFR is not as accur ate as Creatinine Brigitte merchant in predicting glom erular filtration rate . Estimated GFR is not appl icable for dialysis patien ts Craft Coordinator ID - MANPREET [id number] 06:21:53 Test Item Value Reference Range Interpretation Comments MAGNESIUM (BEAKER) (test code = 1.5 mg/dL 1.6-2.6 L 627) Craft Coordinator ID - MANPREET GCT, [id number] 23:26:00Unlisted Reason for Exam - Click Yes and Enter Reason Below->YesUnlisted Reason for Exam->epigastric and LUQ severe pain; history of prior colon cancer remotelyIs this for enterography?->NoPlease specify:->Pancreasspleen and GI tractWill this procedure require oral contrast?->Yes [facility] : 1960 Sex: MFINAL REPORT CLINICAL HISTORY: Unlisted Reason for Examepigastric and LUQ severe pain; history of prior colon cancer remotely FINDINGS: Multiple axial images of the abdomen and pelvis were performed after the uncomplicated administration of IV contrast. Oral contrast was given. This exam was performed according to our departmental dose-optimization program, which includes automated exposure control, adjustment of the mA and/or kV according to patient size and/or use of the iterative reconstruction technique. Comparison:Outside examination dated 05/28/2022 Lower chest: Calcified granuloma in the left lower lobe. There are several nodules in the bilateral lower lungs, the largest in the right lower lobe measuring 9 mm. No pleural effusion or pneumothorax. Atherosclerotic coronary arterycalcification. Liver: No significant findings. Gallbladder and biliary tree: No significant findings. Spleen: Punctate calcified granulomas in the spleen. Adrenal Glands: No significant findings. Kidneys and ureters: Bilateral simple-appearing cysts in both kidneys, the largest in the inferior right kidney measuring 3 cm. No follow-up imaging for this finding is recommended as incidental lesions are likely benign. Stomach and Duodenum: No significant findings. Pancreas: No significant findings. Bowel: No bowel obstruction or pneumatosis intestinalis. Appendix: Nonvisualized. No right lower quadrantinflammatory changes. Bladder: No significant findings. Major vascular structures: Atherosclerotic calcifications. Aneurysmal dilatation of the right common iliac artery, measuring up to 2.4 cm. Reproductive organs: No significant findings. Other: No free air, fluid or adenopathy Skeleton: No acute bony abnormality. IMPRESSION: No noncontrast CT abnormality to explain the patient's pain. Several bibasilar pulmonary nodules, measuring up to 9 mm. Given the history of remote malignancy, metastatic disease is not definitely excluded. Because the patient had a complete CT chest at an outside facility on 07/28/2021, follow-up for this finding is recommended with a CT chest at 3-6 months and again at 18-24 months. 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 Vascular specialist evaluation can be obtained on a nonemergent basis. Signed: Erika Echavarria MDReport Verified Date/Time: 05/30/2022 23:26:03 PET/CT, CARDIAC PERF REST AND STRESS 2022-05-30 23:00:00Reason for exam:->cardiac screening, high CAD risk [facility] : 1960 Sex: MFINAL REPORT PROCEDURE: PET/CT Rest/Stress MYOCARDIAL PERFUSION with regadenoson\XA9\CPTCODE: [id number]: CADPROTOCOL: Limited low-dose CT imaging was performed for attenuation correction. 40.0 mCi of Rb-82 chloride was injected iv at rest, and gated PET (positron emission tomography) images were obtained. Subsequently, 40.1 mCi of Rb-82 chloride was injected iv at expected peak pharmacologic effect, and gated PET images were obtained. PRELIMINARY STRESS TEST DATA FROM NONINVASIVE CARDIOLOGY: Pharmacologic stress was by 10- second iv infusion of 0.4 mg of regadenoson. Radiotracer was injected 30 seconds after start of stress. Heart rate was 81 beats/min at rest and 91 beats/min (57% of MPHR) at tracer injection. BP was 108/70 mmHg at rest and 99/80 mmHg at tracer injection. Stress was stopped for predetermined endpoint. The patient experienced chest pain, dyspnea, nausea; treatment was aminophylline 125 mg IV. Preliminary ECG evaluation was not available from Cardiology at the time of this report. (Final ECG interpretation and other stress and monitoring data are reported separately by Cardiology.) IMAGING FINDINGS: Study quality is fair due to persistent patient motion. Images obtained after stress injection show mild decrease in activity in the mid and apical anterior, apical, and inferoapical LV. Resting images show diffuse moderate improvement. Gated images obtained at r est and with stress show normal LV wall motion and thickening. LVEF at rest is 60-65%. LVEF at stress is 60-65%. IMPRESSION: 1. Abnormal study. 2. Appropriate pharmacologic stress. 3. Abnormal myocardial perfusion. There is a mild, medium size, mostly reversible, apical/periapical perfusion defect. 4.Normal resting LV function. No deterioration with pharmacologic stress. 5. The ascending aorta is only partially visualized and is dilated. 6. No prior study. Signed: Joel Horton MDReport Verified Date/Time: 05/30/2022 23:00:16 POCT-GLUCOSE [id number] 21:22:07 Test Item Value Reference Range Interpretation Comments POC-GLUCOSE METER 113 mg/dL 70-110 H : TESTED A T [facility] ([place]) (test code = [place], 1538) [id number]: Craft Coordinator/Techni ilir ID = [id number] for Ashley Hartmann SARS-COV2/RT-PCR ([facility])2022-05-30 17:11:48 Test Item Value Reference Range Interpretation Comments SARS-COV2/RT-PCR Negative Negative The SARS-Co V-2 target (test code = nucleic acids a re not [id number]) detected in thi s specimen. Negative result s do not preclude SARS-C oV-2 infection and s hould not be used as the rosita e basis for patient managem ent decisions. Nega tive results must be combine d with clinical observ ations, patient history , and epidemiological information. A false negativ e result may occur if a spec imen is improperly cecy ected, transported or handled. This SARS CoV-2 test is a rapid, real-time RT-PC R test intended for th e qualitative detection of nu cleic acid from SARS-CoV-2 in a nasopharyngeal swab specimen collected from individuals suspected of CO VID-19 by their healthcar e provider. This test has been authorized by FDA under an EUA for use by authorized laboratories. This test is only authorized for the duration of the declaration that circumstances exist justifying the authorization of emergency use of in vitro diagnostic tests for detection and/or diagnosis of COVID-19 under Section 564(b)(1) of the Federal Food, Drug and Cosmetic Act, 21 U.S.C. 360bbb-3(b)(1), unless the authorization is terminated or revoked sooner. Fact Sheet for Healthcare Providers: https://www.[employer].Zoosk om/Documents/Xpert%20Xpress%20SARS%20CoV-2/Fact%20Sheets/3023802%92XUVC-VCF-7%2 0HEALTHCARE%20PROVIDERS%20FACT%20SHEET.pdf Fact Sheet for Healthcare Patients: https://www.iubenda/Documents/Xpert%20X press%20SARS%20CoV-2/Fact%20Sheets/3023801%90KMRK-NGV-3%20PATIENT%20FACT%20SHEKyleigh LynchpdfPOCT-GLUCOSE [id number] 17:06:14 Test Item Value Reference Range Interpretation Comments POC-GLUCOSE METER 164 mg/dL 70-110 H : TESTED A T [facility] ([place]) (test code = [place], 1538 [id number]: Craft Coordinator/Techni ilir ID = [id number] for Do Eric hodge POCT-GLUCOSE [id number] 08:05:36 Test Item Value Reference Range Interpretation Comments POC-GLUCOSE METER 96 mg/dL 70-110 : TESTED A T [facility] (BEAKER) (test code = [place], 1538) [id number]: Craft Coordinator/Techni ilir ID = [id number] for Eric Renteria BASIC METABOLIC [id number] 05:09:47 Test Item Value Reference Range Interpretation Comments SODIUM (BEAKER) 136 meq/L 136-145 (test code = 381) POTASSIUM 3.7 meq/L 3.5-5.1 (BEAKER) (test code = 379) CHLORIDE (BEAKER) 105 meq/L 98-107 (test code = 382) CO2 (BEAKER) 22 meq/L 22-29 (test code = 355) BLOOD UREA 15 mg/dL 7-21 NITROGEN (BEAKER) (test code = 354) CREATININE 0.77 mg/dL 0.57-1.25 (BEAKER) (test code = 358) GLUCOSE RANDOM 88 mg/dL 70-105 (BEAKER) (test code = 652) CALCIUM (BEAKER) 9.3 mg/dL 8.4-10.2 (test code = 697) EGFR (BEAKER) 101 Interpretatio n of eGFR (test code = mL/min/1.73 values Stage De scription 1092) sq m Result G1 Allie l or high >=90 G2 Mildly decreased 60-89 G3a Mildl y to moderately 45-5 9 G3b Moderately to s everely 30-44 G4 Severl y decreased 15-29 G5 Kidney failure <15Reported eGF R is based on the CKD-EPI 2021 equation that d oes not use a race coefficientEsti mated GFR is not as accur ate as Creatinine Brigitte merchant in predicting glom erular filtration rate . Estimated GFR is not appl icable for dialysis patien ts Craft Coordinator ID - MANPREET [id number] 05:09:47 Test Item Value Reference Range Interpretation Comments MAGNESIUM (BEAKER) (test code = 1.6 mg/dL 1.6-2.6 627) Craft Coordinator ID - MANPREET [id number] 05:09:47 Test Item Value Reference Range Interpretation Comments PHOSPHORUS (BEAKER) (test code = 3.7 mg/dL 2.3-4.7 604) Craft Coordinator ID - MANPREET GCBC W/PLT COUNT & AUTO [id number] 04:50:40 Test Item Value Reference Range Interpretation Comments WHITE BLOOD CELL COUNT (BEAKER) 7.9 K/ L 3.5-10.5 (test code = 775) RED BLOOD CELL COUNT (BEAKER) 5.03 M/ L 4.63-6.08 (test code = 761) HEMOGLOBIN (BEAKER) (test code = 16.2 GM/DL 13.7-17.5 410) HEMATOCRIT (BEAKER) (test code = 46.9 % 40.1-51.0 411) MEAN CORPUSCULAR VOLUME (BEAKER) 93 fL 79-92 H (test code = 753) MEAN CORPUSCULAR HEMOGLOBIN 32.2 pg 25.7-32.2 (BEAKER) (test code = 751) MEAN CORPUSCULAR HEMOGLOBIN CONC 34.5 GM/DL 32.3-36.5 (BEAKER) (test code = 752) RED CELL DISTRIBUTION WIDTH 13.9 % 11.6-14.4 (BEAKER) (test code = 412) PLATELET COUNT (BEAKER) (test 145 K/CU MM 150-450 L code = 756) MEAN PLATELET VOLUME (BEAKER) 9.7 fL 9.4-12.4 (test code = 754) NUCLEATED RED BLOOD CELLS 0 /100 WBC 0-0 (BEAKER) (test code = 413) NEUTROPHILS RELATIVE PERCENT 59 % (BEAKER) (test code = 429) LYMPHOCYTES RELATIVE PERCENT 29 % (BEAKER) (test code = 430) MONOCYTES RELATIVE PERCENT 9 % (BEAKER) (test code = 431) EOSINOPHILS RELATIVE PERCENT 2 % (BEAKER) (test code = 432) BASOPHILS RELATIVE PERCENT 1 % (BEAKER) (test code = 437) NEUTROPHILS ABSOLUTE COUNT 4.64 K/ L 1.78-5.38 (BEAKER) (test code = 670) LYMPHOCYTES ABSOLUTE COUNT 2.30 K/ L 1.32-3.57 (BEAKER) (test code = 414) MONOCYTES ABSOLUTE COUNT (BEAKER) 0.70 K/ L 0.30-0.82 (test code = 415) EOSINOPHILS ABSOLUTE COUNT 0.17 K/ L 0.04-0.54 (BEAKER) (test code = 416) BASOPHILS ABSOLUTE COUNT (BEAKER) 0.06 K/ L 0.01-0.08 (test code = 417) IMMATURE GRANULOCYTES-RELATIVE 0.30 % 0.00-1.00 PERCENT (BEAKER) (test code = 2801) Carotid doppler [id number] 21:49:59Ejection FractionSLEH ECHO HEARTLAB MKCKESSON CPAKaiser Permanente San [facility] Medical CenterPOCT-GLUCOSE [id number] 21:16:22 Test Item Value Reference Range Interpretation Comments POC-GLUCOSE METER 118 mg/dL 70-110 H : TESTED A T [facility] (BEAKER) (test code = [facility], 153) [address]: Craft Coordinator/Techni ilir ID = [id number] for PE RALES, SUDHA CARCINOEMBRYONIC ANTIGEN (CEA)2022-05-29 17:38:23 Test Item Value Reference Range Interpretation Comments CARCINOEMBRYONIC ANTIGEN (BEAKER) 2.9 ng/mL 0.0-5.0 (test code = 685) Craft Coordinator ID - BSALPHA FETOPROTEIN (AFP), TUMOR [id number] 17:38:23 Test Item Value Reference Range Interpretation Comments ALPHA-FETOPROTEIN (BEAKER) (test 4.7 ng/mL <10.0 code = 1094) Craft Coordinator ID - BSPOCT-GLUCOSE [id number] 16:54:18 Test Item Value Reference Range Interpretation Comments POC-GLUCOSE METER 176 mg/dL 70-110 H : TESTED A T [facility] [address] (BEAKER) (test code = [facility], 153) 95228: Craft Coordinator/Techni ilir ID = [id number] for Adarsh Aubrey burgess POCT-GLUCOSE [id number] 11:26:02 Test Item Value Reference Range Interpretation Comments POC-GLUCOSE METER 99 mg/dL 70-110 : TESTED A T [facility] [address] (BEAKER) (test code = [facility], 153) 649[address]: Craft Coordinator/Techni ilir ID = [id number] for Eric Renteria CBC W/PLT COUNT & AUTO [id number] 10:23:04 Test Item Value Reference Range Interpretation Comments WHITE BLOOD CELL COUNT (BEAKER) 7.8 K/ L 3.5-10.5 (test code = 775) RED BLOOD CELL COUNT (BEAKER) 5.27 M/ L 4.63-6.08 (test code = 761) HEMOGLOBIN (BEAKER) (test code = 16.8 GM/DL 13.7-17.5 410) HEMATOCRIT (BEAKER) (test code = 50.3 % 40.1-51.0 411) MEAN CORPUSCULAR VOLUME (BEAKER) 95 fL 79-92 H (test code = 753) MEAN CORPUSCULAR HEMOGLOBIN 31.9 pg 25.7-32.2 (BEAKER) (test code = 751) MEAN CORPUSCULAR HEMOGLOBIN CONC 33.4 GM/DL 32.3-36.5 (BEAKER) (test code = 752) RED CELL DISTRIBUTION WIDTH 13.7 % 11.6-14.4 (BEAKER) (test code = 412) PLATELET COUNT (BEAKER) (test 152 K/CU MM 150-450 code = 756) MEAN PLATELET VOLUME (BEAKER) 10.2 fL 9.4-12.4 (test code = 754) NEUTROPHILS RELATIVE PERCENT 60 % (BEAKER) (test code = 429) LYMPHOCYTES RELATIVE PERCENT 28 % (BEAKER) (test code = 430) MONOCYTES RELATIVE PERCENT 10 % (BEAKER) (test code = 431) EOSINOPHILS RELATIVE PERCENT 2 % (BEAKER) (test code = 432) BASOPHILS RELATIVE PERCENT 1 % (BEAKER) (test code = 437) NEUTROPHILS ABSOLUTE COUNT 4.62 K/ L 1.78-5.38 (BEAKER) (test code = 670) LYMPHOCYTES ABSOLUTE COUNT 2.19 K/ L 1.32-3.57 (BEAKER) (test code = 414) MONOCYTES ABSOLUTE COUNT (BEAKER) 0.77 K/ L 0.30-0.82 (test code = 415) EOSINOPHILS ABSOLUTE COUNT 0.12 K/ L 0.04-0.54 (BEAKER) (test code = 416) BASOPHILS ABSOLUTE COUNT (BEAKER) 0.06 K/ L 0.01-0.08 (test code = 417) IMMATURE GRANULOCYTES-RELATIVE 0.10 % 0.00-1.00 PERCENT (BEAKER) (test code = 2801) PROTHROMBIN TIME/[id number] 08:41:01 Test Item Value Reference Range Interpretation Comments PROTIME (BEAKER) 10.9 seconds 9.8-12.0 (test code = 759) INR (BEAKER) (test 0.99 See_Comment [Automat ed message] code = 370) The system [employer] generated this result transmitted ref erence range: <=5.90. The reference range was not used to int erpret this result as normal/abnormal . RECOMMENDED COUMADIN/WARFARIN INR THERAPY RANGESSTANDARD DOSE: 2.0 - 3.0 Includes: PROPHYLAXIS for venous thrombosis, systemic embolization; TREATMENT for venous thrombosis and/or pulmonary embolus.HIGH RISK: Target INR is 2.5-3.5 for patients with mechanical heart valves.POCT-GLUCOSE [id number] 07:36:23 Test Item Value Reference Range Interpretation Comments POC-GLUCOSE METER 98 mg/dL 70-110 : TESTED A T [facility] (BEAKER) (test code = [place], 1538) 20[address]: Craft Coordinator/Techni ilir ID = [id number] for Eric Renteria BASIC METABOLIC [id number] 06:13:40 Test Item Value Reference Range Interpretation Comments SODIUM (BEAKER) 138 meq/L 136-145 (test code = 381) POTASSIUM 3.5 meq/L 3.5-5.1 (BEAKER) (test code = 379) CHLORIDE (BEAKER) 106 meq/L 98-107 (test code = 382) CO2 (BEAKER) 20 meq/L 22-29 L (test code = 355) BLOOD UREA 13 mg/dL 7-21 NITROGEN (BEAKER) (test code = 354) CREATININE 0.79 mg/dL 0.57-1.25 (BEAKER) (test code = 358) GLUCOSE RANDOM 94 mg/dL 70-105 (BEAKER) (test code = 652) CALCIUM (BEAKER) 9.3 mg/dL 8.4-10.2 (test code = 697) EGFR (BEAKER) 101 Interpretatio n of eGFR (test code = mL/min/1.73 values Stage De scription 1092) sq m Result G1 Allie l or high >=90 G2 Mildly decreased 60-89 G3a Mildl y to moderately 45-5 9 G3b Moderately to s everely 30-44 G4 Severl y decreased 15-29 G5 Kidney failure <15Reported eGF R is based on the CKD-EPI 2020 equation that d oes not use a race coefficientEsti mated GFR is not as accur ate as Creatinine Brigitte shonda in predicting glom erular filtration rate . Estimated GFR is not appl icable for dialysis patien ts Craft Coordinator ID - MANPREET [id number] 06:13:40 Test Item Value Reference Range Interpretation Comments MAGNESIUM (BEAKER) (test code = 1.7 mg/dL 1.6-2.6 627) Craft Coordinator ID - MANPREET [id number] 06:13:40 Test Item Value Reference Range Interpretation Comments PHOSPHORUS (BEAKER) (test code = 3.1 mg/dL 2.3-4.7 604) Craft Coordinator ID Estella Godoy
[2022-06-12 12:27] LABS: Absolute Lymphocytes (CBC) 2.8 K/uL (0.7-4.9); Hematocrit 46.7 % (39.6-49.0); Lymphocytes % 36.1 % (15.3-44.8); MCV 93.3 fL (80-100); MPV 7.8 fL (7.6-11.3); RBC Red Blood Cell Count 5.01 M/uL (4.33-5.43)
[2022-06-12 12:41] LABS: Urine Mucus Slight /HPF (None Seen); Urine RBC <5 /HPF (None Seen); Urine Sperm Present (None Seen)
[2022-06-12 12:45] LABS: Albumin 3.6 g/dL (3.4-5.0); Bilirubin Total 1.1 mg/dL (0.2-1.0); Potassium 4.1 mmol/L (3.5-5.1); Protein, Total 6.9 g/dL (6.4-8.2)
[2022-06-12 12:49] LABS: Urine Blood Negative (Negative); Urine Glucose Negative (Negative); Urine Protein Negative (Negative); Urine Specific Gravity 1.025 (1.005-1.030)
--- NOTE | 2022-06-12 13:28 | RAD REPORT ---
EXAM DESCRIPTION: MRI - Lumbar Spine Wo Con- 06/12/2022 1:11 pm CLINICAL HISTORY: bilateral lower ext numbness, tingling, weakness Pain, radiculopathy COMPARISON: Chest Single View dated 05/28/2022; Angio Aorta For Dissection dated 05/28/2022; Head C Spine Mpr Wo Con dated 05/28/2022 FINDINGS: Vertebral body heights are within normal limits. No aggressive marrow pattern is observed. No fracture is suspected. The conus medullaris terminates at a normal level. No thickening of the cauda equina or clumping of n erve roots seen. L1-2 level: Minimal posterior disc bulge is seen with mild facet hypertrophy. Disc bulge is asymmetri c to the left. No significant canal or foraminal stenosis. L2-3 level: Mild to moderate posterior disc bulge is present with small posterior annular fissure. Mi ld facet hypertrophy. Mild central canal narrowing is seen. L3-4 level: Mild posterior disc bulge asymmetric to the left. Mild facet and ligamentum flavum hypert rophy. No significant central canal stenosis or foraminal narrowing. L4-5 level: Moderate broad-based posterior disc bulge is present. Moderate facet and ligamentum flavu m hypertrophy. Mild central canal narrowing is present L5-S1 level: Mild posterior disc bulge with mild facet hypertrophy. No significant canal or foraminal stenosis. Bilateral cystic renal lesions are seen, incompletely assessed IMPRESSION: Mild lumbar spondylosis is noted. There is no high-grade canal stenosis or foraminal bere nosis at any level.
[2022-06-12 13:40] LABS: SARS-CoV-2 Antigen Rapid Res Negative (Negative)
--- NOTE | 2022-06-12 14:05 | RAD REPORT ---
EXAM DESCRIPTION: CTAbdomen Pelvis W Contrast - 06/12/2022 1:47 pm CLINICAL HISTORY: Abdominal pain. lower abd pain COMPARISON: No comparisons TECHNIQUE: Biphasic CT imaging of the abdomen and pelvis was performed with 100 ml non-ionic IV cont rast. All CT scans are performed using dose optimization technique as appropriate and may include automated exposure control or mA/KV adjustment according to patient size. FINDINGS: The lung bases are clear. The liver, spleen, pancreas, adrenal glands and kidneys are within normal limits. Bilateral benign ap pearing renal cysts. No bowel obstruction, free air, free fluid or abscess. Moderate stool is present throughout the colon . Nonvisualized appendix. Aortoiliac atherosclerosis. No evidence of significant lymphadenopathy. No suspicious bony findings. IMPRESSION: No acute intra-abdominal or pelvic finding.
--- NOTE | 2022-06-12 14:54 | ER ---
Nurse's Notes [facility] Name: Alexander Abraham Age: 62 yrs Sex: Male : 1960 Arrival Date: 06/12/2022 Time: 11:54 Bed 23 Private MD: Diagnosis: Weakness Presentation: 06/12 11:55 Chief complaint: Patient states: "Y'all transferred me to [facility] the other day and ss they did a heart cath in my L groin and sent me home two days ago in a taxi without any paper work or anything." Pt reports over the past month has has had increase pain and weakness to bilateral lower extremities that gets worse every day. Coronavirus screen: Client denies travel out of the [place] in the last 14 days. Ebola Screen: Patient denies exposure to infectious person. Patient denies travel to an Ebola-affected area in the 21 days before illness onset. Initial Sepsis Screen: Does the patient meet any 2 criteria? No. Patient's initial sepsis screen is negative. Does the patient have a suspected source of infection? No. Patient's initial sepsis screen is negative. Risk Assessment: Do you want to hurt yourself or someone else? Patient reports no desire to harm self or others. Onset of symptoms was May 2022. 11:55 Method Of Arrival: EMS: [facility] 11:55 Acuity: NICOLASA 3 ss Historical: - Allergies: 11:58 Morphine; ss - Home Meds: 12:15 amlodipine oral [Active]; Metoprolol Tartrate Oral [Active]; em6 - PMHx: 11:58 colon cancer; Hypertensive disorder; ss - PSHx: 11:58 Colon; Heart Cath; ss - Immunization history:: Client reports receiving the 2nd dose of the Covid vaccine. - Social history:: Smoking status: Patient denies any tobacco usage or history of. Screenin:00 Abuse screen: Denies threats or abuse. Nutritional screening: No deficits noted. em6 Tuberculosis screening: No symptoms or risk factors identified. 12:10 Fall Risk Ambulatory Aid- Crutches/Cane/Walker (15 pts). Gait- Weak (10 pts.). Total em6 Cook Fall Scale indicates Low Risk Score (25-44 pts). Fall prevention measures have been instituted. Side Rails Up X 2 Placed close to Nursing Station Frequent Obs/Assesments occuring As available Patient and Family Educated on Fall Prevention Program and strategies. Assessment: 11:57 General: Appears uncomfortable, Behavior is cooperative. Pain: Complains of pain in em6 right leg and left leg Pain radiates to right foot and left foot Pain currently is 10 out of 10 on a pain scale. Quality of pain is described as tingling, numb. Neuro: Level of Consciousness is awake, alert, obeys commands, Oriented to person, place, time, situation. Cardiovascular: Patient's skin is warm and dry. Respiratory: Airway is patent Respiratory effort is even, unlabored, Respiratory pattern is regular, symmetrical. GI: Abdomen is non-distended, Abd is soft and non tender X 4 quads. : No signs and/or symptoms were reported regarding the genitourinary system. EENT: No signs and/or symptoms were reported regarding the EENT system. Derm: Skin is intact. Musculoskeletal: Capillary refill < 3 seconds. 13:20 Reassessment: No changes from previously documented assessment. Patient and/or family em6 updated on plan of care and expected duration. Pain level reassessed. Patient is alert, oriented x 3, equal unlabored respirations, skin warm/dry/pink. 14:20 Reassessment: No changes from previously documented assessment. Patient and/or family em6 updated on plan of care and expected duration. Pain level reassessed. Patient is alert, oriented x 3, equal unlabored respirations, skin warm/dry/pink. 14:20 Reassessment: provider notified of abdominal pain. no new order. em6 15:20 Reassessment: Patient appears in no apparent distress at this time. No changes from em6 previously documented assessment. Patient and/or family updated on plan of care and expected duration. Pain level reassessed. Patient is alert, oriented x 3, equal unlabored respirations, skin warm/dry/pink. 16:20 Reassessment: Patient appears in no apparent distress at this time. No changes from em6 previously documented assessment. Patient and/or family updated on plan of care and expected duration. Pain level reassessed. Patient is alert, oriented x 3, equal unlabored respirations, skin warm/dry/pink. 16:32 Reassessment: gave nurse to nurse report to garrett houston. em6 Vital Signs: 11:55 BP 111 / 83; Pulse 72; Resp 20; Temp 97.5(O); Pulse Ox 100% on R/A; Weight 72.12 kg; ss Height 5 ft. 8 in. (172.72 cm); Pain 10/10; 13:20 BP 116 / 88; Pulse 72; Resp 18; Pulse Ox 96% on R/A; em6 14:36 BP 111 / 87; Pulse 68; Resp 20; Pulse Ox 100% on R/A; em6 15:15 BP 112 / 89; Pulse 74; Resp 22; Pulse Ox 100% on R/A; em6 16:00 BP 130 / 85; Pulse 74; Resp 19; Pulse Ox 97% on R/A; em6 11:55 Body Mass Index 24.18 (72.12 kg, 172.72 cm) ED Course: 11:54 Patient arrived in ED. ss 11:54 [facility] kb 11:54 Roge Moore MD is Attending Physician. kb 11:56 Elin Null RN is Primary Nurse. em6 11:58 Triage completed. ss 11:58 Arm band placed on right wrist. ss 12:00 Bed in low position. Call light in reach. Side rails up X 1. color television console monitor on. Pulse em6 ox on. NIBP on. Warm blanket given. 12:15 Inserted saline lock: 20 gauge in right forearm, using aseptic technique. Blood em6 collected. 13:13 MRI Lumbar Spine wo Con In Process Unspecified. EDMS 13:48 CT Abd/Pelvis - IV Contrast Only In Process Unspecified. EDMS 14:53 Dax Dinero MD is Hospitalizing Provider. kb 14:53 Michael Dinero MD is Hospitalizing Provider. kb 17:01 No provider procedures requiring assistance completed. Patient admitted, IV remains in em6 place. Administered Medications: No medications were administered Medication: 16:24 VIS not applicable for this client. em6 Outcome: 14:53 Decision to Hospitalize by Provider. kb 17:01 Admitted to Med/surg accompanied by nurse, via stretcher, room 206. em6 17:01 Condition: stable 17:02 Instructed on the need for admit. em6 17:02 Patient left the ED. em6 Signatures: Dispatcher [employer] EDMS Shira Ceja FNP-C [employer] TECHNICIAN-Heavenly Corbett, EVON RN ss Elin Null RN RN em6 Corrections: (The following items were deleted from the chart) 14:36 13:20 BP 111 / 87; Pulse 68bpm; Resp 20bpm; Pulse Ox 100% RA; em6 em6 17:02 17:01 Admitted to Med/surg accompanied by nurse, via stretcher, room 202, em6 em6
--- NOTE | 2022-06-12 14:54 | EDPHYS ---
Physician Documentation [facility] Name: Alexander Abraham Age: 62 yrs Sex: Male : 1960 Arrival Date: 06/12/2022 Time: 11:54 Bed 23 Private MD: BLAIR Physician Roge Moore HPI: 06/12 17:50 This 62 yrs old Male presents to ER via EMS with complaints of Leg weakness. kb 17:50 The patient presents with generalized weakness. Onset: The symptoms/episode kb began/occurred 1 month(s) ago. Context: occurred at home. Modifying factors: The symptoms are alleviated by nothing, the symptoms are aggravated by nothing. Associated signs and symptoms: Pertinent positives: abdominal pain. Severity of symptoms: At their worst the symptoms were moderate in the emergency department the symptoms are unchanged. Patient's baseline: Neuro: alert and fully oriented, Motor: no deficits, Ambulation: walks with assist only, uses walker, Speech: normal. The patient has not experienced similar symptoms in the past. The patient has been recently seen by a physician:. Pt was discharged from [facility] 2 days ago after having a heart cath. States he has been having bilateral lower extremity numbness, pain, tingling, and weakness for one month. Reports when he was discharged from [facility] he went home in a taxi and the helper driver held him up to assist him getting inside. States he got to the chair in his home and hasn't been able to get up since then. States he tried getting up this morning and fell back into the chair. Spoke to his APS worker and she called 911 to have him brought in. Pt reports he was trying to get placed in a snf, but has been unable to do so due to insurance. . Historical: - Allergies: 11:58 Morphine; ss - Home Meds: 12:15 amlodipine oral [Active]; Metoprolol Tartrate Oral [Active]; em6 - PMHx: 11:58 colon cancer; Hypertensive disorder; ss - PSHx: 11:58 Colon; Heart Cath; ss - Immunization history:: Client reports receiving the 2nd dose of the Covid vaccine. - Social history:: Smoking status: Patient denies any tobacco usage or history of. ROS: 17:49 Constitutional: Negative for fever, chills, and weight loss. kb 17:49 Abdomen/GI: Positive for abdominal pain. 17:49 Neuro: Positive for numbness, tingling, weakness, of the right leg and left leg. 17:50 All other systems are negative. kb Exam: 17:48 Constitutional: This is a well developed, well nourished patient who is awake, alert, kb and in no acute distress. Head/Face: Normocephalic, atraumatic. ENT: Moist Mucous membranes Cardiovascular: Regular rate and rhythm with a normal S1 and S2. No gallops, murmurs, or rubs. No pulse deficits. Respiratory: Respirations even and unlabored. No increased work of breathing. Talking in full sentences Skin: Warm, dry with normal turgor. Normal color. MS/ Extremity: Pulses equal, no cyanosis. Neurovascular intact. Full, normal range of motion. 17:48 Abdomen/GI: Inspection: abdomen appears normal, Bowel sounds: normal, in all quadrants, Palpation: soft, in all quadrants, moderate abdominal tenderness, in the right lower quadrant and left lower quadrant. 17:56 Neuro: Motor: moves all fours, Strength is 3/5 in the right leg and left leg, kb Sensation: is normal. 19:26 ECG was reviewed by the Attending Physician. Vital Signs: 11:55 BP 111 / 83; Pulse 72; Resp 20; Temp 97.5(O); Pulse Ox 100% on R/A; Weight 72.12 kg; ss Height 5 ft. 8 in. (172.72 cm); Pain 10/10; 13:20 BP 116 / 88; Pulse 72; Resp 18; Pulse Ox 96% on R/A; em6 14:36 BP 111 / 87; Pulse 68; Resp 20; Pulse Ox 100% on R/A; em6 15:15 BP 112 / 89; Pulse 74; Resp 22; Pulse Ox 100% on R/A; em6 16:00 BP 130 / 85; Pulse 74; Resp 19; Pulse Ox 97% on R/A; em6 11:55 Body Mass Index 24.18 (72.12 kg, 172.72 cm) MDM: 11:54 Patient medically screened. kb 14:50 Data reviewed: vital signs, nurses notes. Data interpreted: Pulse oximetry: on room air kb is 100 %. Interpretation: normal. Counseling: I had a detailed discussion with the patient and/or guardian regarding: the historical points, exam findings, and any diagnostic results supporting the discharge/admit diagnosis, lab results, radiology results, the need for further work-up and treatment in the hospital. 14:54 Physician consultation: Michael Dinero MD was contacted at 14:54, regarding admission, kb patient's condition. 06/12 11:58 Order name: CBC with Diff; Complete Time: 12:45 kb 06/12 11:58 Order name: CMP; Complete Time: 12:53 kb 06/12 11:58 Order name: Lipase; Complete Time: 12:53 kb 06/12 11:58 Order name: Urine Microscopic Only; Complete Time: 12:45 kb 06/12 12:27 Order name: SARS RAPID; Complete Time: 13:44 ss 06/12 12:49 Order name: Urine Dipstick-Ancillary; Complete Time: 12:53 EDMS 06/12 11:58 Order name: MRI Lumbar Spine wo Con; Complete Time: 13:32 kb 06/12 15:42 Order name: CBC with Automated Diff EDMS 06/12 15:42 Order name: CBC with Automated Diff EDMS 06/12 15:42 Order name: Comprehensive Metabolic Panel EDMS 06/12 15:42 Order name: Comprehensive Metabolic Panel EDMS 06/12 15:43 Order name: T4 Free EDMS 06/12 15:43 Order name: Thyroid Stimulating Hormone EDMS 06/12 15:43 Order name: Vitamin B12 Level EDMS 06/12 11:58 Order name: IV Saline Lock; Complete Time: 12:28 kb 06/12 11:58 Order name: Labs collected and sent; Complete Time: 12:28 kb 06/12 11:58 Order name: Urine Dipstick-Ancillary (obtain specimen); Complete Time: 12:28 kb 06/12 11:58 Order name: EKG; Complete Time: 11:59 kb 06/12 11:58 Order name: EKG - Nurse/Tech; Complete Time: 12:28 kb 06/12 13:33 Order name: CT Abd/Pelvis - IV Contrast Only; Complete Time: 14:16 kb 06/12 15:42 Order name: CONS Physician Consult EDLA 06/12 15:42 Order name: Regular EDMS 06/12 15:42 Order name: Chest Single View EDMS 06/12 15:42 Order name: Chest Single View; Complete Time: 16:54 EDMS 06/12 15:42 Order name: Chest Single View EDMS EC:26 Rate is 65 beats/min. Rhythm is regular. QRS Vaughn is Normal. UT interval is normal at kb 170 msec. QRS interval is normal at 118 msec. QT interval is normal at 453 msec. Administered Medications: No medications were administered Disposition: 18:55 Co-signature as Attending Physician, Roge Moore MD. rn Disposition Summary: 06/12/22 14:53 Hospitalization Ordered Hospitalization Status: Observation kb Provider: Michael Dinero Location: Telemetry/MedSurg (observation) kb Condition: Stable kb Problem: new kb Symptoms: are unchanged kb Bed/Room Type: Standard Room Assignment: 206(06/12/22 16:05) dw Diagnosis - Weakness kb Forms: - Medication Reconciliation Form kb - SBAR form kb Signatures: Dispatcher [employer] EDMS Shira Ceja, ISH-Romain QUINTANAP-Mely Hargrove RN Roge Horn MD MD rn Smirch, Shelby, RN RN ss Martinez, Erika, RN RN em6 Corrections: (The following items were deleted from the chart) 16:05 14:53 kb dw 17:57 17:48 Constitutional: This is a well developed, well nourished patient who is awake, kb alert, and in no acute distress. Head/Face: Normocephalic, atraumatic. ENT: Moist Mucous membranes Cardiovascular: Regular rate and rhythm with a normal S1 and S2. No gallops, murmurs, or rubs. No pulse deficits. Respiratory: Respirations even and unlabored. No increased work of breathing. Talking in full sentences Skin: Warm, dry with normal turgor. Normal color. MS/ Extremity: Pulses equal, no cyanosis. Neurovascular intact. Full, normal range of motion. Neuro: Awake and alert, GCS 15, oriented to person, place, time, and situation. Moves all extremities. Normal gait. kb
[2022-06-12] MEDS ORDERED: ALBUTEROL 2.5 MG/3 ML NEB SOL NEB PRN (15:37)
[2022-06-12] MEDS ORDERED: ONDANSETRON 4 MG/2 ML VIAL IV PRN (15:37)
[2022-06-12] MEDS ORDERED: LACTULOSE 20 GM/30 ML UCUP PO PRN (15:39)
--- NOTE | 2022-06-12 15:46 | P.HP ---
Certification for Inpatient Patient admitted to: Inpatient With expected LOS: >2 Midnights Practitioner: I am a practitioner with admitting privileges, knowledge of patient current condition, hospital course, and medical plan of care. Services: Services provided to patient in accordance with Admission requirements found in Title 42 Section 412.3 of the Code of Federal Regulations Patient History Date of Service: 06/12/22 Reason for admission: Progressive lower extremity weakness falls History of Present Illness: Patient is 62 years of age was just recently discharged from [facility] he did have some coronary artery disease he was discharged before he could arrange for home medications to be picked up and he lives alone he has been very risky was a fall risk he came back to his house fell he was unable to get up called Adult Protective Services they called an ambulance currently he is at progressive weakness of the legs and is gotten worse over the past month this problem was not addressed at [facility] started off with that tingling has progressed upwards also affecting his arms he is has dysesthesia in his lower extremities still complaining of abdominal discomfort it was presumably from constipation he was given some pain medication in the patient is an active smoker presumed COPD Home medications list reviewed: No - Past Medical/Surgical History Diabetic: No -: Mild coronary artery disease -: History of resected colon cancer -: Hypertension Review of Systems General: Weakness Respiratory: Cough, Shortness of Breath Neurological: Weakness, As per HPI Physical Examination - Vital Signs Temperature: 97.5 F Blood Pressure: 111/83 Pulse: 72 Respirations: 20 Pulse Ox (%): 100 - Physical Exam General: Alert, Cachectic, Mild distress Neck: Supple Respiratory: Expiratory wheezes Cardiovascular: No edema, Regular rate/rhythm Gastrointestinal: Normal bowel sounds, Tenderness (Mild tenderness in his lower abdomen no rebound) Integumentary: No rashes, No breakdown Neurological: Other (Patient has significant weakness of his legs with reduce sensation over he has brisk knee reflexes) - Studies Laboratory Data (last 24 hrs) 06/12/22 12:15: Sodium 131 L, Potassium 4.1, BUN 10, Creatinine 0.87, Glucose 94, Total Bilirubin 1.1 H, AST 40 H, ALT 87 H, Alkaline Phosphatase 58, Lipase 155 06/12/22 12:15: WBC 7.70, Hgb 15.9, Hct 46.7, Plt Count 262 Assessment and Plan - Problems (Diagnosis) (1) Paraparesis Current Visit: Yes Status: Acute Plan: Patient is 62 years of age admitted with paraparesis and over the past 5 months gotten worse over the past month he may also have neuropathy unable to get up ambulate he is fallen numerous times lives by himself he ordered B12 TSH neurology consult lumbar spine MRI does not show any stenosis discussed with perfecto urology will need a lumbar puncture under fluoroscopy on Wednesday (2) COPD (chronic obstructive pulmonary disease) Current Visit: Yes Status: Acute Plan: Patient is an active smoker no prior history of COPD ever started having some steroids and bronchodilators Qualifiers: COPD type: unspecified COPD Qualified Code(s): J44.9 - Chronic obstructive pulmonary disease, unspecified (3) Abdominal pain Current Visit: Yes Status: Acute Plan: Patient's been complaining of some lower abdominal discomfort informed me it is due to constipation currently he required narcotics during his admission at [facility] his pain was relieved with defecation CT of the abdomen does not show any significant abnormality Qualifiers: Abdominal location: lower abdomen, unspecified Qualified Code(s): R10.30 - Lower abdominal pain, unspecified - Advance Directives Does patient have a Living Will: No Does patient have a Durable POA for Healthcare: No
--- NOTE | 2022-06-12 16:47 | RAD REPORT ---
EXAM DESCRIPTION: RAD - Chest Single View - 06/12/2022 4:41 pm CLINICAL HISTORY: COPD Chest pain. COMPARISON: Chest Single View dated 05/28/2022; Chest Single View dated 04/28/2022; CHEST SINGLE VIE W dated 01/10/2011; ABDOMEN ACUTE SERIES dated 04/03/2010 FINDINGS: Portable technique limits examination quality. The lungs are emphysematous but grossly clear. The heart is normal in size. No displaced fractures. IMPRESSION: Prominent COPD.
[2022-06-12 17:57] VITALS: BMI 24.1
[2022-06-12] MEDS: predniSONE 20 MG TAB PO SCH ×2 (18:05→21:00)
[2022-06-12] MEDS ORDERED: INFLUENZA VACCINE (for 6+ mo) 0.5 ML DOSE IMVAC ONE (21:00)
[2022-06-12] MEDS: HEPARIN 5000 UNIT/ML 1 ML VIAL SQ SCH (21:47)
[2022-06-12] MEDS: DULERA 200/5 (MOMETASONE/FORMOTEROL) INHALER IH SCH (22:45)
[2022-06-13 04:14] LABS: Absolute Lymphocytes (CBC) 1.3 K/uL (0.7-4.9); Hematocrit 44.5 % (39.6-49.0); Lymphocytes % 19.8 % (15.3-44.8); MCV 93.4 fL (80-100); MPV 7.4 fL (7.6-11.3); RBC Red Blood Cell Count 4.77 M/uL (4.33-5.43)
[2022-06-13 04:32] LABS: Albumin 3.4 g/dL (3.4-5.0); Bilirubin Total 0.9 mg/dL (0.2-1.0); Potassium 4.5 mmol/L (3.5-5.1); Protein, Total 6.8 g/dL (6.4-8.2)
[2022-06-13 04:37] LABS: Thyroid Stimulating Hormone 2.67 uIU/mL (0.360-3.740)
--- NOTE | 2022-06-13 08:08 | RAD REPORT ---
EXAM DESCRIPTION: Joshua Single View06/13/2022 7:04 am CLINICAL HISTORY: Chest pain COMPARISON: June 12, 2022 FINDINGS: The lungs are hyperaerated. The lungs appear clear of acute infiltrate. The heart is normal size IMPRESSION: No acute abnormalities displayed
[2022-06-13] MEDS: HEPARIN 5000 UNIT/ML 1 ML VIAL SQ SCH ×2 (08:16→21:18)
[2022-06-13] MEDS: predniSONE 20 MG TAB PO SCH ×2 (08:17→21:18)
[2022-06-13] MEDS: DULERA 200/5 (MOMETASONE/FORMOTEROL) INHALER IH SCH ×2 (08:17→21:18)
[2022-06-13] MEDS ORDERED: CYANOCOBALAMIN 1000MCG/ML INJ SQ ONE (12:40)
--- NOTE | 2022-06-13 12:40 | P.PN ---
Subjective Date of Service: 06/13/22 Chief Complaint: Progressive lower extremity weakness falls Patient complaining of weakness in both legs. No other complaint. Physical Examination - Vital Signs Temperature: 97.0 F Blood Pressure: 110/79 Pulse: 77 Respirations: 18 Pulse Ox (%): 99 - Physical Exam General: Alert, In no apparent distress, Oriented x3 HEENT: Mucous membr. moist/pink Neck: JVD not distended Respiratory: Clear to auscultation bilaterally, Normal air movement Cardiovascular: No edema, Regular rate/rhythm, Normal S1 S2, No murmurs Gastrointestinal: Normal bowel sounds, Soft and benign, Non-distended, No tenderness Musculoskeletal: No swelling, No tenderness Integumentary: No rashes, No cyanosis Neurological: Other (Paraplegia, patient currently unable to even flex his knees. Power is 1/5 in both lower extremities.) - Studies Laboratory Data (last 24 hrs) 06/12/22 12:15: Sodium 131 L, Potassium 4.1, BUN 10, Creatinine 0.87, Glucose 94, Total Bilirubin 1.1 H, AST 40 H, ALT 87 H, Alkaline Phosphatase 58, Lipase 155 06/12/22 12:15: WBC 7.70, Hgb 15.9, Hct 46.7, Plt Count 262 Assessment And Plan - Current Problems (Diagnosis) (1) Paraparesis Current Visit: Yes Status: Acute (2) COPD (chronic obstructive pulmonary disease) Current Visit: Yes Status: Acute Qualifiers: COPD type: unspecified COPD Qualified Code(s): J44.9 - Chronic obstructive pulmonary disease, unspecified - Plan Patient report the paraplegia has been present over the last couple of days. Symptoms started with paresthesia in both arms and legs and trunk 2 months ago, progressed to weakness in the lower extremities, now unable to walk over the last couple of days. Neurology-Dr. Doshi is on board. Continue oral steroids for now. Patient will need fluoroscopic guided lumbar puncture to examine for polyneuropathy/demyelinating disease. He will also require EMG. 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 Patient is relating onset of his neurologic symptoms his most recent COVID- vaccine which was 2 months ago. He will benefit from transfer to a tertiary center for EMG and possible IVIG therapy. Transfer to [facility] initiated. Neuro check. Bronchodilators and oral steroid for COPD.
--- NOTE | 2022-06-13 14:45 | CON ---
Reason For Consultation: Consultation was called because of diffuse weakness. History Of Present Illness: Mr. Abraham is a 62-year-old right-handed patient with hyperte nsion, chronic tobacco use, COPD, colon cancer, who came to [facility] on June 12, 2022, with progressive weakness, which he reports has been ongoing for 6 months. He said weakness began af ter he received the COVID-19 vaccine. Initially he had tingling in his feet which progressed proxima lly to his legs, knees and upper extremities and hands. He subsequently developed weakness where he was not able to ambulate without an assistive device. Initially, a cane and walker and then wheelcha ir. He said for the last at least 2 days, perhaps 3, has not been able to stand at all. He also giv es a history of admission to [facility] in [place] where he was evaluated with cardiac catheterization and spent 2 weeks in hospital, not clear if a diagnosis was rendered and he tells a story that he was put out on a wheelchair, wheeled out, and sent home. He lives with his and is not able to stand, t ransfer, mobilize, and after falling at home, he called Adult Protective Services and Emergency Medic al Services and he was brought to [facility]. His abdomen and pelvis CT scan while at [facility] showed no intraabdominal or pelvic abnormalities. A lumbar spine MRI showed mild lumbar spondylo sis. No high-grade canal or foraminal stenosis at any level. Blood work: His complete blood count with differential was essentially unremarkable. His basic metabolic panel did show slightly low sodi um of 131, potassium 4.5, chloride 104, carbon dioxide 23, his BUN 10, creatinine 0.84, glucose was r anging 94 to 143, calcium 9.1 after hydration. He was dehydrated when he first came in. His total b ilirubin normal at 0.9. AST normal at 33, alkaline phosphatase slightly elevated at 81. TSH 2.67, B 12 of 342, free T4 0.93. His urinalysis showed sperm present, otherwise unremarkable, and a COVID-19 test was negative. He did have a chest x-ray which showed prominent COPD. I did see the patient in the emergency room yesterday and he did not have significant shortness of br eath or required any ventilatory support at that point. Past Medical History: As noted. Past Surgical History: Colon resection. Cardiac catheterization. Social History: Reportedly he does not smoke, but has advanced COPD, and no recent alcohol, IV drug abuse, or cocaine. Family History: Noncontributory. Home Medications: Amlodipine and metoprolol. Allergies: MORPHINE. Review of Systems: As noted. Progressive weakness, tingling, numbness in the lower extremities and upper extremities an d inability to stand and ambulate. No significant myalgias, arthralgias. No rash. No significant h eadaches, and no nausea or vomiting. No abdominal pain. Physical Examination: Vital Signs: Blood pressure 110/79, pulse 77, respiratory rate 16, temperature 97, oxygen saturation 97% on room air. Weight 109 pounds, height 5 feet 8 inches, BMI 24.2. General: Mr. Abraham is lying in the emergency room. He appears somewhat disheveled with beards, an d with smell of urine. HEENT: He is normocephalic, atraumatic. Sclerae are anicteric. Oropharynx is pink and moist. Neck: Supple. Chest: Clear. Abdomen: Soft. Extremities: Show some bruising at the knees. No cyanosis or edema. Neurological: He is alert and oriented to situation, place, person. Is mildly slow in responses but appropriate. Cranial nerves show no focal deficits on 2 through 12. Motor examination, he has diff use weakness distally and proximally in the upper and lower extremities, around 3/5, down to 2/5 in t he foot. Is unable to bend the knees. Sensory exam, stocking-glove loss to light touch, temperature . Reflexes are absent in upper and lower extremities. Unable to assess his coordination or gait due to significant weakness. Assessment: Mr. Abraham is a 62-year-old patient who reportedly began having progressive numbness, t ingling, weakness in the legs and arms first after he received COVID vaccine 6 months ago. He has major d a negative cardiac workup. He does have chronic obstructive pulmonary disease, but his oxygenation are good. Electrolytes: Slightly low sodium, hemoglobin and hematocrit normal. His white blood ce ll count is normal. Lumbar spine MRI shows mild changes that do not explain the symptoms. Abdomen a nd pelvis CT scan also no significant abnormalities to explain his symptoms. He does not have any fo dhaval neurological finding and he does not have hyperreflexia but hyporeflexia. 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 Plan: 1.Lumbar puncture under fluoroscopy for protein, glucose, cell count differential, also CSF electrop horesis and may assess for acid-fast bacillus, Celestine levels, VDRL, Lyme titers, and CSF cytology along with again electrophoresis for bands. 2.Consider IVIG loading dose and maintenance dose. 3.EMG nerve conduction study of the extremities would be helpful, but that is not available at the ospital. 4.Patient may be followed by a single-breath count test to assess his pulmonary function and risk of requiring ventilatory support, which is not an issue at this point. 5.Patient may be followed when studies are done, although they may not be done until next week. One option may be to have the patient transferred to a facility that is more capable of managing a progr essive case of weakness which is potentially related to Guillain-Westmoreland syndrome. LB/MODL Voice ID: [id number] Report ID: [id number]
[2022-06-13] MEDS ORDERED: ACETAMINOPHEN 325 MG TABLET PO PRN (19:46)
[2022-06-13] MEDS: ATORVASTATIN 40 MG TAB PO SCH (21:21)
[2022-06-14] MEDS: HEPARIN 5000 UNIT/ML 1 ML VIAL SQ SCH ×2 (08:03→20:56)
[2022-06-14] MEDS: POLYETHYL GLY 3350 17 GM/DOSE PO SCH (08:03)
[2022-06-14] MEDS: DULERA 200/5 (MOMETASONE/FORMOTEROL) INHALER IH SCH ×2 (08:04→21:00)
[2022-06-14] MEDS: ASPIRIN 81 MG CHEWABLE TABLET PO SCH (08:04)
[2022-06-14] MEDS: predniSONE 20 MG TAB PO SCH (08:04)
[2022-06-14] MEDS: NICOTINE 14 MG/PAT TD SCH (08:05)
[2022-06-14] MEDS: GABAPENTIN 100 MG CAP PO SCH ×2 (11:57→20:56)
--- NOTE | 2022-06-14 13:15 | P.PN ---
Subjective Date of Service: 06/14/22 Chief Complaint: Progressive lower extremity weakness falls Patient states her lower extremity weakness are getting better. He is able to bend his knee and move both legs laterally on the bed. Physical Examination - Vital Signs Temperature: 98.0 F Blood Pressure: 129/81 Pulse: 88 Respirations: 18 Pulse Ox (%): 97 Assessment And Plan - Current Problems (Diagnosis) (1) Paraparesis Current Visit: Yes Status: Acute (2) COPD (chronic obstructive pulmonary disease) Current Visit: Yes Status: Acute Qualifiers: COPD type: unspecified COPD Qualified Code(s): J44.9 - Chronic obstructive pulmonary disease, unspecified - Plan Physical Exam General: Alert, In no apparent distress, Oriented x3 Neck: Supple Respiratory: Clear to auscultation bilaterally, Normal air movement Cardiovascular: No edema, Regular rate/rhythm, Normal S1 S2, No murmurs Gastrointestinal: Normal bowel sounds, Soft and benign, Non-distended, No tenderness Musculoskeletal: No swelling, No tenderness Integumentary: No rashes, No cyanosis Neurological: Other (Paraplegia, patient currently unable to even flex his knees. Power is 1/5 in both lower extremities.) Patient report the paraplegia has been present over the last couple of days. Symptoms started with paresthesia in both arms and legs and trunk 2 months ago, progressed to weakness in the lower extremities, now unable to walk over the last couple of days. Neurology-Dr. Doshi is following. Patient is on oral prednisone. He reports some improvement in both lower extremity weakness. Dr. Doshi recommending fluoroscopic guided lumbar puncture to examine for polyneuropathy/demyelinating disease. He will also require EMG. Patient is relating onset of his neurologic symptoms his most recent COVID- vaccine which was 2 months ago. Transfer to a tertiary center for evaluation, EMG and possible IVIG therapy initiated. [facility] declined. [facility]'s is pending. Neuro checks. Bronchodilators and oral steroid for COPD. PT evaluation. Gabapentin for neuropathy/symptom relief.
[2022-06-14] MEDS: ATORVASTATIN 40 MG TAB PO SCH (20:55)
[2022-06-15] MEDS ORDERED: ALPRAZOLAM 0.5 MG TABLET PO ONE (01:02)
[2022-06-15 05:56] LABS: Absolute Lymphocytes (CBC) 2.5 K/uL (0.7-4.9); Hematocrit 42.1 % (39.6-49.0); Lymphocytes % 35.5 % (15.3-44.8); MCV 93.2 fL (80-100); MPV 7.3 fL (7.6-11.3); RBC Red Blood Cell Count 4.51 M/uL (4.33-5.43)
[2022-06-15 07:25] LABS: Potassium 4.1 mmol/L (3.5-5.1)
[2022-06-15] MEDS: NICOTINE 14 MG/PAT TD SCH (08:29)
[2022-06-15] MEDS: POLYETHYL GLY 3350 17 GM/DOSE PO SCH (08:30)
[2022-06-15] MEDS: DULERA 200/5 (MOMETASONE/FORMOTEROL) INHALER IH SCH ×2 (08:30→20:17)
[2022-06-15] MEDS: ASPIRIN 81 MG CHEWABLE TABLET PO SCH (08:30)
[2022-06-15] MEDS: GABAPENTIN 100 MG CAP PO SCH ×3 (08:30→20:18)
[2022-06-15] MEDS: HEPARIN 5000 UNIT/ML 1 ML VIAL SQ SCH ×2 (08:31→20:17)
[2022-06-15] MEDS: HYDROMORPHONE HCL 1 MG/ML INJ IV PRN ×2 (08:40→20:16)
[2022-06-15 13:50] LABS: CSF Glucose 51 mg/dL (40-70)
--- NOTE | 2022-06-15 13:56 | EKG ---
Test Date: 2022-06-12 Test Time: 12:05:11 Waiter/Waitress Formal: MEASUREMENT RESULTS: Intervals: Rate: 65 MO: 170 QRSD: 118 QT: 436 QTc: 453 [place]: P: 68 MO: 170 QRS: 92 T: 85 INTERPRETIVE STATEMENTS: Normal sinus rhythm Right bundle branch block Abnormal ECG Compared to ECG 05/28/2022 17:46:18 T-wave abnormality no longer present Possible ischemia no longer present Electronically Signed On 06-15-22 13:53:19 VP PURCHASING by David Mtz
--- NOTE | 2022-06-15 14:02 | P.PN ---
Subjective Date of Service: 06/15/22 Chief Complaint: Progressive lower extremity weakness falls No new changes from yesterday. He is able to bend his knee and move both legs laterally on the bed. He is not able to lift any of his legs against gravity. Physical Examination - Vital Signs Temperature: 97.1 F Blood Pressure: 140/73 Pulse: 68 Respirations: 16 Pulse Ox (%): 100 Assessment And Plan - Current Problems (Diagnosis) (1) Paraparesis Current Visit: Yes Status: Acute (2) COPD (chronic obstructive pulmonary disease) Current Visit: Yes Status: Acute Qualifiers: COPD type: unspecified COPD Qualified Code(s): J44.9 - Chronic obstructive pulmonary disease, unspecified - Plan Physical Exam General: Alert, In no apparent distress, Oriented x3 Neck: Supple Respiratory: Clear to auscultation bilaterally, Normal air movement Cardiovascular: No edema, Regular rate/rhythm, Normal S1 S2, No murmurs Gastrointestinal: Normal bowel sounds, Soft and benign, Non-distended, No tenderness Musculoskeletal: No swelling, No tenderness Integumentary: No rashes, No cyanosis Neurological: Paraplegia, who to flex both knees. power is 2/5 in both lower extremities. Plan: Patient report the paraplegia than has been present 2 days prior to presentation. Neurology-Dr. Doshi is following. Oral prednisone discontinued per [facility] neurologist recommendation 06/14/2022. He reports some improvement in both lower extremity weakness. Dr. Doshi recommending fluoroscopic guided lumbar puncture to examine for polyneuropathy/demyelinating disease. Lumbar puncture today. He will also require EMG. Patient is relating onset of his neurologic symptoms his most recent COVID- vaccine which was 2 months ago. Transfer to a tertiary center initiated for further evaluation with EMG and possible IVIG therapy. [facility] declined. [facility] has accepted patient pending bed availability. Continue neuro checks. Continue bronchodilators for COPD. PT to evaluate Gabapentin for neuropathy/symptom relief.
[2022-06-15 16:05] LABS: Appearance CLEAR (CLEAR); Body Fluid Source CSF; Body Fluid WBC 4 /mm^3; Color of fluid Colorless (COLORLESS)
[2022-06-15 16:06] LABS: Appearance CLEAR (CLEAR); Body Fluid Source CSF; Body Fluid WBC 7 /mm^3; Color of fluid Colorless (COLORLESS); Fluid Total Volume 7 ml
--- NOTE | 2022-06-15 18:03 | RAD REPORT ---
EXAM DESCRIPTION: RAD - Lumbar Puncture For Dx - 06/15/2022 12:54 pm CLINICAL HISTORY: Paraplegia COMPARISON: None. TECHNIQUE: The procedure, risks and alternatives to the procedure were discussed with the patient in detail. After answering all questions, both oral and written consent were obtained. Patient was off heparin for greater than 12 hours. Patient's 81 milligram aspirin history vary between the patient an d the chart. Given the urgency of the procedure, the benefits of the procedure felt outweigh small ri sk of aspirin related hemorrhage. Time-out procedure was performed. The patient was placed in an oblique prone position on the fluoroscopic table. The skin of the lower back was prepped and draped in the usual sterile fashion. After anesthetizing the skin and deeper sof t tissues with 1% lidocaine, a 22 gauge needle was advanced into the thecal sac at the L3 level. Clear colorless CSF was observed. A total of 7 mL of CSF was obtained. Near the conclusion of the pro cedure patient moved which dislodged in E[place] from the thecal sac. The 7 mL of CSF that had been obtain ed was felt to be sufficient. The thecal sac was not re- accessed. At the conclusion of the procedure, the needle was withdrawn and a sterile bandage placed over the pu ncture site. The patient tolerated the procedure well without immediate complications. Post-procedu re care and precaution instructions were discussed with the patient before the LP procedure. Patient was transferred back to the floor for continued care. IMPRESSION: Successful fluoroscopic guided lumbar puncture. All obtained fluid was sent to the lab for studies requested by the referring or consulted physician.
--- NOTE | 2022-06-15 20:02 | P.PN ---
Date of Service: 06/16/22 Subjective: no significant change pt states would like to assistance in getting to same custodial as no new/worsening symptoms, no improvement +numbness/tingling of bilateral hands and lower extremities, L leg > R leg ROS: A complete review of systems was performed and is negative except as mentioned above Physical Exam: Gen: NAD, AOx3 HEENT: normal conjunctiva, sclera anicteric CV: regular rate & rhythm, no edema Pulm: non-labored respirations, clear bilaterally Abd: soft, non-tender, non-distended Neuro: Str: 2/5 in both lower extremities at hip and knees. normal R patellar reflex, absent L patella reflex. sensation equal bilaterally, slightly decreased vitals reviewed Problem List Paraparesis, acute COPD, chronic CAD HTN Tobacco use Right common iliac artery aneurysm 2.1 cm Lung nodfules, granuloomatous disease GERD h/o colon cancer Paraplegia - pt reported symptoms present ~2 days prior to admission reportedly began having difficulty ambulating ~4-5 months ago ~2 months ago, started using cane ~3 weeks ago, needed to use a walker, very weak; was hospitalized for 2 of these weeks - for R common iliac artery aneurysm and chest pain (negative cath, no iliac artery intervention needed either) A few days after discharge from [facility], became more weak, having to crawl around his home will attempt to get medical records - pt states only PT addressed his weakness, and was discharged in wheelchair. Seems to be some inconsistencies with pt's history, Neuro - Dr. Doshi consulted s/p LP 06/15 - sent for workuip, r/o polyneuropathy / demyelinating disease, initial cell counts WNL, protein WNL PO prednisone dc'd per [facility] neurologist's recommendations - 06/14 would benefit from EMG reportedly had bilateral absent patellar reflexes on 06/15, On my exam 06/16 had normal R patellar reflex, absent L patellar reflex ESR /CRP negative aldolase and CPK ordered - ?myopathy pt reportedly relating onset of his neuro symptoms to his most recent COVID vaccine ~2 months prior transfer to [facility] initated for further eval with EMG / possible IVIG therapy [facility] declined [facility] accepted patient pending bed availability continue neuro checks continue bronchodilators for COPD PT consulted Gabapentin for neuropathy / symptom relief VTE: Heparin SQ Code: Full Dispo: transfer to [facility] accepted, pending bed availability Time Spent Managing Pts Care (In Minutes): 35
[2022-06-15] MEDS: ATORVASTATIN 40 MG TAB PO SCH (20:17)
[2022-06-16 04:51] LABS: Hematocrit 43.2 % (39.6-49.0); MCV 93.4 fL (80-100); MPV 7.2 fL (7.6-11.3); RBC Red Blood Cell Count 4.63 M/uL (4.33-5.43)
[2022-06-16 05:16] LABS: BUN Blood Urea Nitrogen 13 mg/dL (7-18); Bicarbonate 29 mmol/L (21-32); Glomerular Filtration Rate 88 ml/min (=/>90); Glucose Level 94 mg/dL (74-106); Sodium Level 133 mmol/L (136-145)
[2022-06-16 05:17] LABS: C-Reactive Protein < 2.90 mg/L (<3.00)
[2022-06-16 05:18] LABS: Potassium 5.6 mmol/L (3.5-5.1)
[2022-06-16] MEDS: POLYETHYL GLY 3350 17 GM/DOSE PO SCH (08:48)
[2022-06-16] MEDS: HEPARIN 5000 UNIT/ML 1 ML VIAL SQ SCH ×2 (08:50→20:56)
[2022-06-16] MEDS: NICOTINE 14 MG/PAT TD SCH (08:50)
[2022-06-16] MEDS: GABAPENTIN 100 MG CAP PO SCH ×3 (08:50→20:56)
[2022-06-16] MEDS: DULERA 200/5 (MOMETASONE/FORMOTEROL) INHALER IH SCH ×2 (08:50→20:56)
[2022-06-16] MEDS: HYDROMORPHONE HCL 1 MG/ML INJ IV PRN ×2 (08:58→20:56)
[2022-06-16] MEDS: ATORVASTATIN 40 MG TAB PO SCH (20:56)
[2022-06-17 05:43] LABS: Hematocrit 42.7 % (39.6-49.0); MCV 93.5 fL (80-100); RBC Red Blood Cell Count 4.57 M/uL (4.33-5.43)
[2022-06-17 05:52] LABS: Magnesium 2.1 mg/dL (1.8-2.4); Phosphorus 5.7 mg/dL (2.5-4.9); Potassium 4.9 mmol/L (3.5-5.1)
[2022-06-17] MEDS: GABAPENTIN 100 MG CAP PO SCH ×3 (08:16→20:42)
[2022-06-17] MEDS: DULERA 200/5 (MOMETASONE/FORMOTEROL) INHALER IH SCH ×2 (08:19→20:42)
[2022-06-17] MEDS: POLYETHYL GLY 3350 17 GM/DOSE PO SCH (08:20)
[2022-06-17] MEDS: HEPARIN 5000 UNIT/ML 1 ML VIAL SQ SCH ×2 (08:20→20:42)
[2022-06-17] MEDS: NICOTINE 14 MG/PAT TD SCH (08:21)
[2022-06-17] MEDS: TRAMADOL HCL 50 MG TAB PO PRN ×2 (10:50→19:37)
--- NOTE | 2022-06-17 17:42 | P.PN ---
Date of Service: 06/17/22 Subjective: slight improvement in strength having more soreness / tingling pain in b/l legs no new symptoms ROS: A complete review of systems was performed and is negative except as mentioned above Physical Exam: Gen: NAD, AOx3 HEENT: normal conjunctiva, sclera anicteric CV: regular rate & rhythm, no edema Pulm: non-labored respirations, clear bilaterally Abd: soft, non-tender, non-distended Neuro: Str: 3+/5 in both lower extremities at hip and knees. normal R patellar reflex, absent L patella reflex. sensation equal bilaterally, slightly decreased vitals reviewed Problem List Paraparesis, acute COPD, chronic CAD HTN Tobacco use Right common iliac artery aneurysm 2.1 cm Lung nodfules, granuloomatous disease GERD h/o colon cancer Paraplegia - pt reported symptoms present ~2 days prior to admission reportedly began having difficulty ambulating ~4-5 months ago ~2 months ago, started using cane ~3 weeks ago, needed to use a walker, very weak; was hospitalized for 2 of these weeks - for R common iliac artery aneurysm and chest pain (negative cath, no iliac artery intervention needed either) A few days after discharge from [facility], became more weak, having to crawl around his home will attempt to get medical records - pt states only PT addressed his weakness, and was discharged in wheelchair. Seems to be some inconsistencies with pt's history, Neuro - Dr. Doshi consulted s/p LP 06/15 - sent for workuip, r/o polyneuropathy / demyelinating disease, initial cell counts WNL, protein WNL PO prednisone dc'd per [facility] neurologist's recommendations - 06/14 would benefit from EMG reportedly had bilateral absent patellar reflexes on 06/15, On my exam 06/16 had normal R patellar reflex, absent L patellar reflex ESR /CRP negative aldolase and CPK ordered - ?myopathy pt reportedly relating onset of his neuro symptoms to his most recent COVID vaccine ~2 months prior transfer to [facility] initiated for further eval with EMG / possible IVIG therapy [facility] declined [facility] accepted patient pending bed availability continue neuro checks continue bronchodilators for COPD PT consulted Gabapentin for neuropathy / symptom relief increase dose dc dilaudid VTE: Heparin SQ Code: Full Dispo: transfer to [facility] accepted, pending bed availability Time Spent Managing Pts Care (In Minutes): 35
[2022-06-17] MEDS ORDERED: ALPRAZOLAM 0.25 MG TABLET PO ONE (19:46)
[2022-06-17] MEDS: ATORVASTATIN 40 MG TAB PO SCH (20:42)
[2022-06-18 00:45] VITALS: O2SAT 97
[2022-06-18] MEDS: TRAMADOL HCL 50 MG TAB PO PRN ×2 (06:39→21:12)
[2022-06-18] MEDS: DULERA 200/5 (MOMETASONE/FORMOTEROL) INHALER IH SCH ×2 (07:40→21:04)
[2022-06-18] MEDS: HEPARIN 5000 UNIT/ML 1 ML VIAL SQ SCH ×2 (07:40→20:59)
[2022-06-18] MEDS: POLYETHYL GLY 3350 17 GM/DOSE PO SCH (07:41)
[2022-06-18] MEDS: NICOTINE 14 MG/PAT TD SCH (07:42)
[2022-06-18] MEDS: GABAPENTIN 100 MG CAP PO SCH ×3 (07:43→21:05)
[2022-06-18] MEDS: ATORVASTATIN 40 MG TAB PO SCH (21:05)
[2022-06-18 21:09] VITALS: BP 124/82; TEMP 97.2
--- NOTE | 2022-06-18 21:34 | P.DS ---
Admission Date: 06/12/22 Discharge Date: 06/18/22 Disposition: TRANSFER TO [facility] Discharge Condition: [facility]IR Reason for Admission: Progressive lower extremity weakness falls Consultations: Neuro - Dr. Doshi Brief History of Present Illness: 62yo M, PMH: chronic COPD, CAD, HTN, R common iliac artery aneurysm, GERD, h/o colon cancer Patient reports he was recently discharged from [facility] after 2 week h ospitalization for his heart. He states he was having some lower extremity weakness during that hospitalization, was being evaluated for SNF, but unable to work out due to no insurance, and inability to afford out of pocket. He states he was discharged home before he could arrange for home medications to be picked up and he lives alone. His weakness worsened at home, where he couldn't ambulate, leading him to crawling on the floor / unable to get up. He called [facility], who called EMS. In the ED patient noted to have significant weakness in bilateral lower extremities with paresthesias with absent b/l patellar reflexes. He states this problem was not addressed at last hospitalization and has progressed, with that tingling has progressed upwards also affecting his arms Hospital Course: Problem List Paraparesis, acute COPD, chronic CAD HTN Tobacco use Right common iliac artery aneurysm 2.1 cm Lung nodfules, granuloomatous disease GERD h/o colon cancer Pt reported symptoms present/worsened ~2 days prior to admission reportedly began having difficulty ambulating ~4-5 months ago ~2 months ago, started using cane ~3 weeks ago, needed to use a walker, very weak; was hospitalized for 2 of these weeks - for R common iliac artery aneurysm and chest pain (negative cath, no iliac artery intervention needed either) A few days after discharge from [facility], became more weak, having to crawl around his home will attempt to get medical records - pt states only PT addressed his weakness, and was discharged in wheelchair. Seems to be some inconsistencies with pt's history Neuro - Dr. Doshi consulted on admission, - concern for GBS / demyelinating disease, vs myopathy s/p LP 06/15 - initial cell counts WNL, protein WNL; CSF culture negative less likely to be GBS patient initially started on PO prednisone, however dc'd per [facility] neurologist's recommendations - 06/14 Neurology recommended transfer to tertiary care center for further workup - EMG, possible muscle biopsy reportedly had bilateral absent patellar reflexes on 06/15, On my exam 06/16 had normal R patellar reflex, absent L patellar reflex ESR /CRP, CPK negative aldolase pending pt reportedly relating onset of his neuro symptoms to his most recent COVID vaccine ~2 months prior uptitrated home dose of Gabapentin on admission, uptitrated Vital Signs/Physical Exam: Temp Pulse Resp BP Pulse Ox 97.2 F 80 18 124/82 96 06/18/22 20:00 06/18/22 20:00 06/18/22 21:12 06/18/22 20:00 06/18/22 21:12 Physical Exam: Gen: NAD, AOx3 HEENT: normal conjunctiva, sclera anicteric, PERRL CV: regular rate & rhythm, no edema Pulm: non-labored respirations, clear bilaterally Abd: soft, non-tender, non-distended Neuro: Str: 3+/5 in both lower extremities at hip and knees. normal R patellar reflex, absent L patella reflex. sensation equal bilaterally, slightly decreased. str 5/5 in upper extremities, with myoclonic jerks with movement Laboratory Data at Discharge: WBC 7.40 K/uL (4.3-10.9) 06/17/22 05:24 Hgb 14.7 g/dL (13.6-17.9) 06/17/22 05:24 Hct 42.7 % (39.6-49.0) 06/17/22 05:24 Plt Count 248 K/uL (152-406) 06/17/22 05:24 Sodium 134 mmol/L (136-145) L 06/17/22 05:24 Potassium 4.9 mmol/L (3.5-5.1) 06/17/22 05:24 BUN 16 mg/dL (7-18) 06/17/22 05:24 Creatinine 0.93 mg/dL (0.55-1.3) 06/17/22 05:24 Glucose 102 mg/dL (74-106) 06/17/22 05:24 Phosphorus 5.7 mg/dL (2.5-4.9) H 06/17/22 05:24 Magnesium 2.1 mg/dL (1.8-2.4) 06/17/22 05:24 Total Bilirubin 0.9 mg/dL (0.2-1.0) 06/13/22 04:02 AST 33 U/L (15-37) 06/13/22 04:02 ALT 81 U/L (12-78) H 06/13/22 04:02 Alkaline Phosphatase 60 U/L (45-117) 06/13/22 04:02 Lipase 155 U/L (73-393) 06/12/22 12:15 Home Medications: Amlodipine [Norvasc] 20 mg PO DAILY 06/13/22 Aspirin Chewable [Aspirin Chewable*] 81 mg PO DAILY 06/13/22 Atorvastatin Calcium [Lipitor] 40 mg PO BEDTIME 06/13/22 Enalapril [Vasotec] 10 mg PO DAILY 06/13/22 Metoprolol Tartrate [Lopressor] 50 mg PO DAILY 06/13/22 Nicotine [Nicoderm] 1 patch TD DAILY 06/13/22 Polyethylene Glycol 3350 [Miralax] 17 gm PO DAILY 06/13/22 Followup: NONE,NONE [Primary Care Provider] - Time spent managing pt's care (in minutes): 45
--- NOTE | 2022-06-22 14:28 | PN ---
Subjective: Mr. Abraham is lying in bed. He reports some improvement in his weakness in the lower and upper extremities. However, he still has significant weakness in the feet and hands. He was able to sit at the side of the bed with therapist, but still not ambulating any distance. 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 He does have some pain in the lower extremities. Objective: Vital Signs: Blood pressure 135/87, pulse 81, respiratory rate 16, temperature 97.6, oxygen saturation 98%. Weight 159 pounds, height 5 feet, BMI 24.2. General: As noted, Mr. Abraham is resting in bed. He has johnson. HEENT: He is normocephalic, atraumatic. Sclerae anicteric. He does appear again, somewhat disheveled. Chest: Clear. Abdomen: Soft. Extremities: Show no significant edema or cyanosis. Neurological: Diffuse weakness in the lower extremities distally and proximally. Decreased sensation to light touch, temperature distally and proximally in the lower extremities. Depressed reflexes in the extremities. Laboratory Studies: His complete blood count is unremarkable. Chemistries, blood glucose ranged from 98 to 149. Sodium 134, potassium 4.9, chloride 103, BUN 16, creatinine 0.93, phosphorus 5.1, magnesium 2.1. Did have a lumbar puncture on the that showed glucose 51, protein normal at 44, lymphocytes 9. Assessment: Mr. Abraham is a 62-year-old patient with clear etiology for his diffuse weakness, possibility of Guillain-Wendover syndrome was entertained, but lumbar puncture is normal. He also had consideration for a myopathy, but his creatine kinase is low at 32. C-reactive protein less than 2.9. Does have slightly low therapeutic B12 of 342. Plan: 1. It is unclear the etiology of the patient's weakness. An EMG nerve conduction study of the lower extremities should be considered. The possibility of muscle biopsy also considered and he may have an evaluation to potentially rule out inclusion-body myositis. 2. May consider a course of steroids. 3. The patient's disposition will likely be a long-term need in a nursing home or facility that can manage long-term recovery. The patient apparently has no resources and is being processed for Medicaid, which may not allow him to access facilities. GARIMA/YISEL Voice ID: [id number] Report ID: [id number]
== END 2022-06-18 22:30 | disposition short-term general hospital (02) | DRG 52 ==
LOC: ER 11:52 → ERHOLD 15:37 → 2ND 16:29
PROVIDERS: ADMIT Internal Medicine Sleep Medicine; ATTEND Hospitalist
PROC: 009U3ZX Drainage of Spinal Canal, Percutaneous Approach, Diagnostic (ICD-10-PCS; principal; 2022-06-15)
DX: G82.20 Paraplegia, unspecified (principal); R64 Cachexia; G62.9 Polyneuropathy, unspecified; I10 Essential (primary) hypertension; I72.3 Aneurysm of iliac artery; K21.9 Gastro-esophageal reflux disease without esophagitis; J44.9 Chronic obstructive pulmonary disease, unspecified; I25.10 Atherosclerotic heart disease of native coronary artery without angina pectoris; R91.8 Other nonspecific abnormal finding of lung field; Z23 Encounter for immunization; Z88.5 Allergy status to narcotic agent; Z60.2 Problems related to living alone; Z79.82 Long term (current) use of aspirin; Z68.24 Body mass index [BMI] 24.0-24.9, adult; Z79.52 Long term (current) use of systemic steroids; Z79.899 Other long term (current) drug therapy; Z85.038 Personal history of other malignant neoplasm of large intestine; Z20.822 Contact with and (suspected) exposure to COVID-19
CPT/HCPCS: 36415; 71045; 72148; 74177; 77003; 80048; 80053; 81003; 81015; 82085; 82542; 82550; 82607; 82945; 82947; 83690; 83735; 84100; 84132; 84157; 84439; 84443; 85025; 85027; 85652; 86140; 87070; 87811; 89050; 90471; 93005; 97110; 97112; 97161; 97530; 99285; J1170; J1644; J3420; J3535; J7512; Q2035; Q9967; U0003

== ENCOUNTER 2022-07-24 13:20 | Inpatient (IN) | payer SELFPAY ==
--- OUTSIDE RECORDS SUMMARY | 2022-07-24 19:56 | XMS REPORT | Continuity of Care Document ---
:1960 Author Organization [facility] t Address [address] [place] [address] Care Team Providers Name Role Phone ANICETO TA Attending Clinician Unavailable Daniel AHMADI, Syeda Martinez Attending Clinician Aniceto Ta MD Attending Clinician Kirsten AHMADI, Alexis [place] Attending Clinician Teja Bateman MD Attending Clinician Bryan Guo MD Attending Clinician Arin Quezada MD Attending Clinician [phone] SYEDA SANCHEZ Attending Clinician Unavailable BRYAN ESQUIVEL Attending Clinician Unavailable Merissa Ambrocio MD Attending Clinician [phone] Bryan Esquivel MD Attending Clinician Billie Vyas MD Attending Clinician ARIN QUEZADA Admitting Clinician Unavailable MERISSA AMBROCIO Admitting Clinician Unavailable Problems Condition Condition Condition Status Onset Resolution Last Treating Co mments Source Name Details Category Date Date Treatment Clinician Date SIADH SIADH Disease Active [facility] (syndrome (syndrome 07-16 [facility] of of 00:00: Medical inappropri inappropri 00 Ce nter ate ADH ate ADH production production ) ) 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[facility] deficiency deficiency 07-16 [facility] myelopathy myelopathy 00:00: Me dical 00 Center Paraplegia Paraplegia Disease Active 2021-[address] [facility]09 [facility] 00[facility]: Medical 00 [place] Coronary Coronary Disease Active 2021[facility] artery artery [facility] disease disease 00:00: Medical involving involving 00 Cent er unga unga coronary coronary artery artery Hypertensi Hypertensi Disease Active 2021-[address] on on 08-01 [facility] 00:[facility]: Medical 00 [place] HLD HLD Disease Active 2021-[address] [facility] (hyperlipi (hyperlipi 08-01 [facility] demia) demia) 00:00: Medical 00 [place] Smoker Smoker Disease Active 2021-[address] [facility] 08-01 [facility] 00[facility]: Medical 00 [place] Thrombocyt Thrombocyt Disease Active 2021-[address] openia openia 08-01 [facility] 00:00: Medical 00 [place] Cellulitis Cellulitis Disease Active 2021-[address] of back of back 08-01 [facility] except except 00:00: Medical buttock buttock 00 Center Epigastric Epigastric Disease Active 2021-[address] pain pain 08-01 [facility] 00:00: Medical 00 [place] Deconditio Deconditio Disease Active 2021-[address] jodie low jodie low 08-01 [facility] back back 00:00: Medical 00 [place] Frail Frail Disease Active 2021-[address] [facility] elderly elderly 08-01 [facility] 00:00: Medical 00 [place] Other Other Disease Active 2021-[address] [facility] chest pain chest pain 08-01 [facility] 00:00: Medical 00 [place] Paresthesi Paresthesi Disease Active 2021-[address] as with as with 08-01 [facility] subjective subjective 00:00: Me dical weakness weakness 00 [place] History of History of Disease Active 2021-[address] colon colon 08-01 [facility] cancer cancer 00:00: Medical 00 [place] Adynamic Adynamic Disease Active 2021-07 [facility] ileus ileus 08[facility]01 [facility] 00:[facility]: Medical 00 [place] Weight Weight Disease Active 2021-[address] [facility] loss, loss, 08-01 [facility] unintentio unintentio 00:00: Me dical nal nal 00 [place] (Ambrocio) (Ambrocio) Disease Active 2021-07 [facility] 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 00:00: Medica l common common 00 Center iliac iliac artery artery Allergies, Adverse Reactions, Alerts Allergy Allergy Status Severity Reaction(s) Onset Inactive Treating Comm ents Source Name Type Date Date Clinician Morphine Drug Active Nausea And 2021-[address] [facility] Intolera Vomiting -18 [facility] nce 00:00: Medical 00 Center MORPHINE Allergy Active Med N\\T\\V 2021-[address] [facility] 1-18 [facility] 00:00: Medical 00 Center Social History Social Habit Start Date Stop Date Quantity Comments Source History [facility]Med Medical [facility] History [facility] 2022-06-19 2022-06-[address] [facility] Transport Med 00:00:00 00:00:[address] [facility] Housing 2022-06-19 2022-06-[address] [facility] Unable to Pay 00:00:00 00:00:[address] History [facility] Housing 2022-06-19 2022-06-[address] [facility] Places Lived 00:00:00 00:00:00 Medical Cent er History [facility] Housing 2022-06-19 2022-06-[address] [facility] Homeless Last Year 00:00:00 00:00:00 [facility] Exposure to 2022-05-19 2022-05-[address] [facility] SARS-CoV-2 (event) 00:00:00 01:39:00 [facility] Cigarettes smoked 2022-05-29 2022-05-[address] [facility] current (pack per 00:00:00 00:00:00 Medical Center day) - Reported Tobacco use and 2022-05-29 2022-05-[address] [facility] [address] [facility] exposure 00:00:00 00:00:00 [facility] Sex Assigned At [address] [facility] 00:00:00 00:00:00 [facility] Center Smoking Status Start Date Stop Date Source Current every day smoker 2022-05-29 00:00:00 [facility] Medications Ordered Filled Start Stop Current Ordering Indication Dosage Frequency Signature Comments Components Source Medication Medication Date Date Medication? Clinician (SIG) Name Name amLODIPine Yes 10mg QD Take [address] (NORVASC) 1-13 by mouth [facility] 10 MG 19:13: daily. Medical tablet [address] [place] [address] enalapril 2023-0 Yes 10mg QD Take [address] (VASOTEC) 1-13 by mouth [facility] 10 MG 19:13: daily. Medical tablet 47 Center metoprolol Yes 25mg QD Take [address] succinate 1-13 by mouth [facility] (TOPROL-XL) 19:13: daily. Medi dhaval 25 MG 24 hr 47 Center tablet celecoxib 2023- Yes 100mg Q.5D Take [address] [facility] (CeleBREX) -13 - capsule [facility] 100 MG 00:00: 23:59 (100 mg Medical capsule 00 :00 total) by Center mouth 2 (two) times daily . sodium 2023- Yes 2g Take [address] [facility] chloride 1 -06 01-06 tablets (2 [facility] gram tablet 00:00: 23:59 g total) edical 00 :00 by mouth 2 Center (two) times daily with breakfast and dinner. A-C-E-zinc- Yes 1{tbl} QD Take [address] sod 1-05 tablet by [facility]ukes selenate-co 00:00: mouth Medic al pper 00 daily. [place] (Prosight) 5,000-60-30 unit-mg-uni t Tab enoxaparin Yes 40mg Q24H Inject 0.[address] (LOVENOX) 1-05 mLs (40 mg Luke s 40 mg/0.4 00:00: total) Medica l mL Syrg 00 subcutaneo Center usly daily. lidocaine 2022- Yes 2{patch Q24H Place [address] (LIDODERM) 07-16- } patches [facility] 5 % patch 00:00: 23:59 onto the Med ical 00 :00 skin daily Center for 30 days Remove & Discard patch within 12 hours or as directed by . polyethylen 2022- No 17g QD Take [address] e glycol 07-16-08 by mouth [facility] (GLYCOLAX) 00:00: 23:59 daily for M edical 17 gram 00 :00 3 days. [place] packet insulin 2023- Yes 0U Inject 0-[address] lispro -04 -04 Units [facility] (HumaLOG) 00:00: 23:59 subcutaneo M edical 100 unit/mL 00 :00 usly 3 Center injection (three) times daily before meals. senna-docus 2023- Yes 2{tbl} Q.5D Take [address] ate 07-15 tablets by [facility] (SENOKOT S) 00:00: 23:59 mouth 2 Me dical 8.6-50 mg 00 :00 (two) Center per tablet times daily. acetaminoph 2022- Yes 650mg Take [address] en 07-15 12-30 tablets [facility] (TYLENOL) 00:00: 23:59 (650 mg Medi dhaval 325 MG 00 :00 total) by Center tablet mouth every 4 (four) hours as needed for up to 360 days. nicotine 2022- Yes 1{patch QD Place [address] (NICODERM 07-15 } patch onto [facility] [facility] CQ) 7 mg/24 00:00: 23:59 the skin M edical hr patch 00 :00 daily for Center 30 days. bisacodyL 2022- Yes 10mg Take 2 [facility] (DULCOLAX) 07-15 tablets [facility] 5 mg EC 00:00: 23:59 (10 mg Medical tablet 00 :00 total) by Center mouth daily as needed for Constipati on for up to 30 days. traZODone 2022- Yes 50mg QD Take 1 [facility] (DESYREL) 07-15 tablet (50 [place] [facility] 50 MG 00:00: 23:59 mg total) Medica l tablet 00 :00 by mouth Center nightly for 30 days. cyclobenzap 2022- Yes 5mg [id number] Take [address] rine 07-15 [id number] tablet (5 [place] [facility] (FLEXERIL) 00:00: 23:59 3D mg total) M edical 5 MG tablet 00 :00 by mouth 3 Ce nter (three) times daily for 10 days. HYDROcodone 2022- Yes 1{tbl} Take [address] -acetaminop 07-15 tablet by [facility] (NORCO 00:00: 23:59 mouth Medic al 10-325) 00 :00 every 8 Center 10-325 mg (eight) per tablet hours for 10 days. Max Daily Amount: 3 tablets oxyCODONE-a 2022- Yes 1{tbl} Take [address] cetaminophe 07-1514 tablet by [facility] n 00:00: 23:59 mouth Medical (PERCOCET) 00 :00 every 6 Center 5-325 mg (six) per tablet hours as needed for up to 10 days . Max Daily Amount: 4 tablets ondansetron 2022- No 4mg Take [address] [facility] [facility] (ZOFRAN-ODT 07-15 tablet (4 [facility] ) 4 MG 00:00: 23:59 mg total) Medic al disintegrat 00 :00 by mouth Cent er ing tablet every 8 (eight) hours as needed for up to 7 days. amLODIPine 2021-07 Yes 10mg QD Take [address] (NORVASC) 08-09 by mouth [facility] 10 MG 16:04: daily. Medical tablet 42 Center enalapril 2021-07 Yes 10mg QD Take [address] (VASOTEC) 08-09 by mouth [facility] 10 MG 16:04: daily. Medical tablet 42 Center metoprolol 2021-07 Yes 25mg QD Take [address] succinate - by mouth [facility] (TOPROL-XL) 16:04: daily. Medi dhaval 25 MG 24 hr 42 Center tablet aspirin 81 2021-07- Yes 81mg QD Take [address] [facility] MG chewable -09 06- tablet (81 L ukes tablet 00:00: 23:59 mg total) Medic al 00 :00 by mouth Center daily. gabapentin 2021-07- Yes 300mg QD Take [address] (NEURONTIN) -29 11-29 capsule Luke [facility] 300 MG 00:00: 23:59 (300 mg Medical capsule 00 :00 total) by Center mouth nightly. aspirin 81 2021-07- Yes 81mg QD Take [address] [facility] MG chewable -29 -29 tablet (81 L ukes tablet 00:00: 23:59 mg total) Medic al 00 :00 by mouth Center daily. gabapentin 2021-07- Yes 300mg QD Take [address] [facility] (NEURONTIN) 1-29 11-29 capsule [facility] 300 MG 00:00: 23:59 (300 mg Medical capsule 00 :00 total) by Center mouth nightly. nicotine 2021-07- No 1{patch QD Place [address] (NICODERM 08-09 } patch onto [place] [facility] CQ) 14 00:00: 00:00 the skin Medica l mg/24 hr 00 :00 daily for Center patch 30 days. nicotine 2021-07- Yes 1{patch QD Place 1 [...] gram 00 :00 3 days. Center packet polyethylen 2021-07- No 17g QD Take [address] e glycol 08-09 by mouth [facility] (GLYCOLAX) 00:00: 23:59 daily for M edical 17 gram 00 :00 3 days. Center packet atorvastati 2021-07- Yes 40mg QD Take [address] [facility] n (LIPITOR) 08-08 tablet (40 L ukes 40 MG 00:00: 23:59 mg total) Medica l tablet 00 :00 by mouth Center nightly. atorvastati 2021-07- Yes 40mg QD Take [address] [facility] n (LIPITOR) 08-08 tablet (40 L ukes 40 MG 00:00: 23:59 mg total) Medica l tablet 00 :00 by mouth Center nightly. gabapentin 2021-07- No 300mg [id number] Take [address] (NEURONTIN) 08-08 [id number] capsule [facility] 300 MG 00:00: 00:00 3D (300 mg Medical capsule 00 :00 total) by Center mouth 3 (three) times daily. gabapentin 2021-07- No 300mg [id number] Take [address] (NEURONTIN) 08-08 [id number] capsule [facility] 300 MG 00:00: 00:00 3D (300 mg Medical capsule 00 :00 total) by Center mouth 3 (three) times daily. Vital Signs Vital Name Observation Time Observation Value Comments Source WEIGHT 2022-07-19 07:20:00 72.1 kg WEIGHT 2022-06-22 07:15:00 72.1 kg WEIGHT 2022-06-21 09:06:00 72.1 kg HEIGHT 2022-06-19 00:24:00 172.7 cm WEIGHT 2022-06-19 00:24:00 72.167 kg WEIGHT 2022-07-19 07:20:00 72.1 kg WEIGHT 2022-06-22 07:15:00 72.1 kg WEIGHT 2022-06-21 09:06:00 72.1 kg HEIGHT 2022-06-19 00:24:00 172.7 cm WEIGHT 2022-06-19 00:24:00 72.167 kg WEIGHT 2022-07-19 07:20:00 72.1 kg WEIGHT 2022-06-22 07:15:00 72.1 kg WEIGHT 2022-06-21 09:06:00 72.1 kg HEIGHT 2022-06-19 00:24:00 172.7 cm WEIGHT 2022-06-19 00:24:00 72.167 kg WEIGHT 2022-06-07 07:29:00 67.7 kg WEIGHT 2022-05-29 01:00:00 65.772 kg HEIGHT 2022-05-29 01:00:00 172.7 cm WEIGHT 2022-06-07 07:29:00 67.7 kg WEIGHT 2022-05-29 01:00:00 65.772 kg HEIGHT 2022-05-29 01:00:00 172.7 cm WEIGHT 2022-06-07 07:29:00 67.7 kg WEIGHT 2022-05-29 01:00:00 65.772 kg HEIGHT 2022-05-29 01:00:00 172.7 cm Systolic blood 2022-07-24 16:00:00 131 mm[Hg] [facility] Diastolic blood 2022-07-24 16:00:00 80 mm[Hg] [facility] S t [facility] Heart rate 2022-07-24 16:00:00 78 /min [facility] Body temperature 2022-07-24 16:00:00 36.28 Caprice [facility] Respiratory rate 2022-07-24 16:00:00 18 /min [facility] Oxygen saturation in 2022-07-24 16:00:00 98 /min [facility] Arterial blood by Medical Ce nter Pulse oximetry Body weight 2022-07-19 07:20:00 72.1 kg [facility] BMI 2022-07-19 07:20:00 24.17 kg/m2 [facility] Body height 2022-06-19 00:24:00 172.7 cm [facility] Systolic blood 2022-06-09 15:22:00 137 mm[Hg] [facility] Diastolic blood 2022-06-09 15:22:00 98 mm[Hg] [facility] Heart rate 2022-06-09 15:22:00 85 /min [facility] Body temperature 2022-06-09 15:22:00 36.5 Caprice [facility] Respiratory rate 2022-06-09 15:22:00 18 /min [facility] Oxygen saturation in 2022-06-09 15:22:00 98 /min [facility] Arterial blood by Medical Ce nter Pulse oximetry Body weight 2022-06-07 07:29:00 67.7 kg [facility] BMI 2022-06-07 07:29:00 22.69 kg/m2 [facility] Body height 2022-05-29 01:00:00 172.7 cm [facility] Procedures Procedure Date / Time Performing Clinician Source Performed BASIC METABOLIC PANEL 2022-07-24 12:46:00 Yaz Smith [facility] ELECTROLYTES 2022-07-21 12:14:00 Aniceto Ta [facility] POCT-GLUCOSE METER 2022-07-21 11:34:00 Aniceto Ta [facility] POCT-GLUCOSE METER 2022-07-21 08:14:00 TaAniceto [facility] POCT-GLUCOSE METER 2022-07-20 17:20:00 Ta, [facility] POCT-GLUCOSE METER 2022-07-20 12:43:00 Ta, [facility] POCT-GLUCOSE METER 2022-07-20 08:30:00 Ta, [facility] SARS-COV2/RT-PCR ([facility] & 2022-07-20 05:41:00 Ta, [facility] POCT-GLUCOSE METER 2022-07-19 21:16:00 Ta, [facility] POCT-GLUCOSE METER 2022-07-19 18:30:00 Ta, [facility] POCT-GLUCOSE METER 2022-07-19 07:52:00 [facility]ABOLIC PANEL 2022-07-19 05:46:00 Bhavana [facility] POCT-GLUCOSE METER 2022-07-18 21:53:00 Ta, [facility] POCT-GLUCOSE METER 2022-07-18 17:01:00 Ta, [facility] POCT-GLUCOSE METER 2022-07-18 12:55:00 Ta, [facility] POCT-GLUCOSE METER 2022-07-18 07:53:00 Ta, [facility] BASIC METABOLIC PANEL 2022-07-18 05:50:00 Bhavana [facility] CBC W/PLT COUNT & AUTO 2022-07-18 05:50:00 Bhavana [facility] CBC W/PLT COUNT & AUTO 2022-07-18 05:50:00 Bhavana [facility] POCT-GLUCOSE METER 2022-07-17 21:40:00 Ta, [facility] POCT-GLUCOSE METER 2022-07-17 17:22:00 Ta, [facility] POCT-GLUCOSE METER 2022-07-17 12:44:[address] [facility] POCT-GLUCOSE METER 2022-07-17 08:07:00 Ta, [facility] BASIC METABOLIC PANEL 2022-07-17 05:41:00 Bhavana [facility] POCT-GLUCOSE METER 2022-07-16 21:19:[address] [facility] POCT-GLUCOSE METER 2022-07-16 17:48:[address] [facility] POCT-GLUCOSE METER 2022-07-16 12:52:00 Ta, [facility] POCT-GLUCOSE METER 2022-07-16 08:25:[address] [facility] BASIC METABOLIC PANEL 2022-07-16 03:41:00 Bhavana [facility] CBC W/PLT COUNT & AUTO 2022-07-16 03:41:00 Bhavana [facility] CBC W/PLT COUNT & AUTO 2022-07-16 03:41:00 Bhavana [facility] POCT-GLUCOSE METER 2022-07-15 21:44:[address] [facility] POCT-GLUCOSE METER 2022-07-15 16:43:[address] [facility] CORTISOL,60 MIN 2022-07-15 12:23:00 Leonel Rent[facility] POCT-GLUCOSE METER 2022-07-15 11:58:[address] [facility] CORTISOL,30 MIN 2022-07-15 11:49:00 Leonel Renteria [facility] ACTH STIMULATION 2022-07-15 10:04:00 Leoenl Renteria [facility] CORTISOL,BASELINE 2022-07-15 10:04:00 Leonel Renteria [facility] POCT-GLUCOSE METER 2022-07-15 08:19:[address] [facility] D-DIMER 2022-07-15 04:51:00 Ta [facility] BASIC METABOLIC PANEL 2022-07-15 04:50:00 Bhavana [facility] POCT-GLUCOSE METER 2022-07-14 21:42:[address] [facility] POCT-GLUCOSE METER 2022-07-14 17:39:[address] [facility] POCT-GLUCOSE METER 2022-07-14 12:52:[address] [facility] XR CHEST 1 VIEW PORTABLE / 2022-07-14 11:27:[address] [facility] POCT-GLUCOSE METER 2022-07-14 09:50:[address] [facility] POCT-GLUCOSE METER 2022-07-14 08:21:[address] [facility] BASIC METABOLIC PANEL 2022-07-14 05:38:00 Bhavana [facility] CBC W/PLT COUNT & AUTO 2022-07-14 05:38:00 Bhavana [facility] HEPATIC FUNCTION PANEL 2022-07-14 05:38:00 [facility] CBC W/PLT COUNT & AUTO 2022-07-14 05:38:00 Bhavana [facility] POCT-GLUCOSE METER 2022-07-13 21:53:[address] [facility] POCT-GLUCOSE METER 2022-07-13 17:18:00 Bhavana [facility] BASIC METABOLIC PANEL 2022-07-13 17:02:00 [facility] SARS-COV2/RT-PCR ([facility] & 2022-07-13 14:59:00 Ta [facility] POCT-GLUCOSE METER 2022-07-13 12:10:00 Bhavana [facility] POCT-GLUCOSE METER 2022-07-13 08:25:00 Bhavana [facility] BASIC METABOLIC PANEL 2022-07-13 04:04:00 Bhavana [facility] POCT-GLUCOSE METER 2022-07-12 21:13:00 Bhavana [facility] POCT-GLUCOSE METER 2022-07-12 17:54:00 Bhavana [facility] POCT-GLUCOSE METER 2022-07-12 12:19:00 Bhavana [facility] POCT-GLUCOSE METER 2022-07-12 07:42:00 Bhavana [facility] CBC W/PLT COUNT & AUTO 2022-07-12 05:12:00 Bhavana [facility] BASIC METABOLIC PANEL 2022-07-12 05:12:00 Bhavana [facility] CBC W/PLT COUNT & AUTO 2022-07-12 05:12:00 Bhavana [facility] POCT-GLUCOSE METER 2022-07-11 21:20:00 Bhavana [facility] POCT-GLUCOSE METER 2022-07-11 17:37:00 Bhavana [facility] POCT-GLUCOSE METER 2022-07-11 12:22:00 Bhavana [facility] POCT-GLUCOSE METER 2022-07-11 07:33:00 Bhavana [facility] CBC W/PLT COUNT & AUTO 2022-07-11 04:06:00 Bhavana [facility] BASIC METABOLIC PANEL 2022-07-11 04:06:00 Bhavana, [facility] CORTISOL 2022-07-11 04:06:00 Yaz Smith [facility] CBC W/PLT COUNT & AUTO 2022-07-11 04:06:00 Bhavana, [facility] POCT-GLUCOSE METER 2022-07-10 17:46:00 Bhavana [facility] POCT-GLUCOSE METER 2022-07-10 11:31:00 Bhavana [facility] POCT-GLUCOSE METER 2022-07-10 07:22:00 Bhavana [facility] SODIUM NA-STAT LAB 2022-07-10 05:56:00 Luis [facility] CBC W/PLT COUNT & AUTO 2022-07-10 05:32:00 Bhavana [facility] BASIC METABOLIC PANEL 2022-07-10 05:32:00 Bhavana [facility] URIC ACID 2022-07-10 05:32:00 Luis [facility] CBC W/PLT COUNT & AUTO 2022-07-10 05:32:00 Bhavana [facility] POCT-GLUCOSE METER 2022-07-09 21:09:00 Bhavana [facility] OSMOLALITY, SERUM 2022-07-09 13:35:00 Luis [facility] OSMOLALITY, URINE 2022-07-09 13:30:00 Luis [facility] SODIUM, RANDOM URINE 2022-07-09 13:30:00 Luis [facility] CHLORIDE, RANDOM URINE 2022-07-09 13:30:00 Luis [facility] POCT-GLUCOSE METER 2022-07-09 11:08:00 Bhavana [facility] POCT-GLUCOSE METER 2022-07-09 07:22:00 Bhavana [facility] CBC W/PLT COUNT & AUTO 2022-07-09 03:54:00 Bhavana [facility] BASIC METABOLIC PANEL 2022-07-09 03:54:00 Bhavana [facility] CBC W/PLT COUNT & AUTO 2022-07-09 03:54:00 Bhavana Teja [facility] POCT-GLUCOSE METER 2022-07-08 21:12:00 Bhavana, [facility] POCT-GLUCOSE METER 2022-07-08 17:24:00 Bhavana [facility] POCT-GLUCOSE METER 2022-07-08 11:01:00 Bhavana [facility] POCT-GLUCOSE METER 2022-07-08 07:21:00 Bhavana [facility] CBC W/PLT COUNT & AUTO 2022-07-08 03:50:00 Bhavana, [facility] BASIC METABOLIC PANEL 2022-07-08 03:50:00 Bhavana, [facility] CBC W/PLT COUNT & AUTO 2022-07-08 03:50:00 Bhavana, [facility] POCT-GLUCOSE METER 2022-07-07 21:14:00 Bhavana, [facility] POCT-GLUCOSE METER 2022-07-07 17:14:00 Bhavana [facility] POCT-GLUCOSE METER 2022-07-07 11:38:00 Bhavana, [facility] POCT-GLUCOSE METER 2022-07-07 08:09:00 [facility]SE [facility] 2022-07-06 20:41:[address] [facility] POCT-GLUCOSE METER 2022-07-06 16:52:00 [facility] POCT-GLUCOSE METER 2022-07-06 11:49:00 [facility] SARS-COV2/RT-PCR ([facility] & 2022-07-06 10:42:00 Aniceto Ta [facility] POCT-GLUCOSE METER 2022-07-06 07:34:00 [facility] POCT-GLUCOSE METER 2022-07-05 21:49:00 Ta, Aniceto [facility] POCT-GLUCOSE METER 2022-07-05 17:54:00 Ta, Aniceto [facility] POCT-GLUCOSE METER 2022-07-05 11:47:00 Ta[facility] 2022-07-05 07:58:00 Ta, Anicetofaviola [facility] POCT-GLUCOSE METER 2022-07-04 21:23:00 Ta[facility] 2022-07-04 17:43:00 Ta, [facility] PO[facility] 2022-07-04 11:54:00 Ta, [facility] POCT-[facility]SE METER 2022-07-04 07:53:00 Ta, Anicetofaviola [facility] COPPER 2022-07-04 04:10:00 Ta, [facility] 2022-07-04 04:09:00 Ta, [facility] POCT-GLUCOSE METER 2022-07-03 20:29:00 Ta[facility] PO[facility]SE [facility] 2022-07-03 17:51:00 Ta, [facility] PO[facility]SE METER 2022-07-03 12:19:00 Ta, Anicetofaviola [facility] POCT-GLUCOSE METER 2022-07-03 08:20:00 Ta, Aniceto [facility] BASIC METABOLIC PANEL 2022-07-03 05:42:00 Alexis Curtis [facility] POCT-GLUCOSE METER 2022-07-02 20:46:00 Ta, Aniceto [facility] POCT-GLUCOSE METER 2022-07-02 17:22:00 Ta, Aniceto [facility] POCT-GLUCOSE METER 2022-07-02 11:37:00 [facility] 2022-07-02 07:48:00 Ta, [facility] POCT-GLUCOSE METER 2022-07-01 21:31:00 [facility] PO[facility]SE [facility]ER 2022-07-01 17:29:00 [facility] POCT-GLUCOSE METER 2022-07-01 12:56:00 Ta, [facility] POCT-GLUCOSE METER 2022-07-01 07:21:00 [facility] POCT-GLUCOSE METER 2022-06-30 22:02:00 Duc [facility] POCT-GLUCOSE METER 2022-06-30 17:54:00 Duc [facility] POCT-GLUCOSE METER 2022-06-30 11:50:00 Duc [facility] POCT-GLUCOSE METER 2022-06-30 07:37:00 Duc [facility] BASIC METABOLIC PANEL 2022-06-30 03:30:00 Duc [facility] POCT-GLUCOSE METER 2022-06-29 21:44:00 Duc [facility] POCT-GLUCOSE METER 2022-06-29 18:07:00 Duc [facility] SARS-COV2/RT-PCR ([facility] & 2022-06-29 16:48:00 [facility] ([facility]TITER,CSF 2022-06-29 16:47:00 [facility] [place]-3 AB, IFA TITER, CSF 2022-06-29 16:47:00 [facility] ROLL EDGE STITCHER HAND-2 AB, TITER, CSF 2022-06-29 16:47:00 [facility] PARANEOPLASTIC AB, LB, CSF 2022-06-29 16:47:00 Garcia, Miki C [facility] PARANEOPLAS AB,CBA,IFA,CSF 2022-06-29 16:47:00 Garcia, Miki C [facility] PARANEOPLASTIC, NMDAR1 2022-06-29 16:47:00 Garcia, [facility] PARANEOPLASTIC, AMPAR1 2022-06-29 16:47:00 Garcia, [facility] PARANEOPLASTIC, AMPAR2 2022-06-29 16:47:00 Garcia, [facility] PARANEOPLASTIC, GABABR 2022-06-29 16:47:00 Garcia, [facility] PARANEOPLASTIC, LGI1 2022-06-29 16:47:00 Garcia, [facility] PARANEOPLASTIC, CASPR2 2022-06-29 16:47:00 Garcia, [facility] VGKC ANTIBODY, CSF 2022-06-29 16:47:00 Garcia, [facility] PARANEOPLASTIC AB EVAL W/ 2022-06-29 16:47:00 Jose, Miki [facility] REFLEX TITER & LB, CSF Medical C enter ANGIOTENSIN CONVERTING 2022-06-29 16:47:00 Lynne [facility] ENZYME (CARROL) [facility] HTLV 1/2 ANTIBODY 2022-06-29 16:47:[address] [facility] PARANEOPLAS AB SCR,IFA,CSF 2022-06-29 16:47:00 Jose, Miki C [facility] AQP4 AB (IGG), SCREEN, CSF 2022-06-29 16:47:00 Jose Miki C [facility] IMMUNOGLOBULINS PANEL, CSF 2022-06-29 16:46:00 Jose, Miki [facility] ([facility]) [facility] GLUCOSE, CSF 2022-06-29 16:41:00 Garcia, [facility] PROTEIN, CSF 2022-06-29 16:41:00 Garcia, [facility] CSF CELL COUNT 2022-06-29 16:41:00 Garcia, [facility] VDRL, CSF 2022-06-29 16:41:00 Garcia, [facility] ALBUMIN, CSF 2022-06-29 16:41:00 Garcia, [facility] AQUAPORIN-4 (AQP4)(NMO-IGG) 2022-06-29 16:41:00 Garcia, [facility] ANTIBODY WITH REFLEX TO [facility] TITER, CF PROTEIN ELECTROPHORESIS, 2022-06-29 16:39:00 Garcia, [facility] OLIGOCLONAL BANDS 2022-06-29 16:39:00 Garcia, [facility] PROTEIN ELECTROPHORESIS, 2022-06-29 16:39:00 Garcia, [facility] IGG INDEX (CSF + BLOOD) 2022-06-29 16:39:00 Garcia, [facility] PROTEIN, CSF 2022-06-29 16:39:00 Garcia, [facility] CSF CULTURE + GRAM STAIN 2022-06-29 16:38:00 Garcia, [facility] POCT-GLUCOSE METER 2022-06-29 12:33:00 Aelxis [facility] CBC W/PLT COUNT & AUTO 2022-06-29 03:05:[address] [facility] BASIC METABOLIC PANEL 2022-06-29 03:05:00 Alexis [facility] CBC W/PLT COUNT & AUTO 2022-06-29 03:05:[address] [facility] POCT-GLUCOSE METER 2022-06-28 21:52:00 Alexis [facility] POCT-GLUCOSE METER 2022-06-28 11:47:00 [facility] 2022-06-28 07:42:00 Kirsten [facility] POCT-GLUCOSE METER 2022-06-27 20:56:00 Kirsten [facility] POCT-GLUCOSE METER 2022-06-27 16:47:00 Alexis [facility] POCT-GLUCOSE METER 2022-06-27 12:16:00 Alexis [facility] POCT-GLUCOSE METER 2022-06-27 08:30:00 Kirsten [facility] POCT-GLUCOSE METER 2022-06-26 23:54:00 Alexis [facility] COPPER 2022-06-26 10:38:00 [facility] W/[facility]T [facility] & AUTO 2022-06-26 05:31:00 [facility]OLIC PANEL 2022-06-26 05:31:00 [facility] MAGNESIUM 2022-06-26 05:31:[facility] & AUTO 2022-06-26 05:31:[address] [place] LYME DISEASE AB WITH REFLEX 2022-06-25 16:53:00 Jose [facility] SJOGREN'S ANTIBODIES 2022-06-25 16:53:00 Jose [facility] MISCELLANEOUS LAB ORDER 2022-06-25 16:52:00 Jose [facility] 2D ECHO W/ DOPPLER 2022-06-25 13:56:31 Jose [facility] (CW/PW/COLOR) [facility] MR LUMBAR SPINE WITH & 2022-06-24 12:39:00 Kirsten Alexisdori [place] [facility] WITHOUT IV CONTRAST Medical Cent er MR THORACIC SPINE WITH & 2022-06-24 12:39:00 Kirsten Alexis [place] [facility] WITHOUT IV CONTRAST Medical Cent er CTA BRAIN 2022-06-23 13:45:00 Garcia, [facility] CTA CAROTID 2022-06-23 13:45:00 Garcia, [facility] RPR 2022-06-23 11:40:00 Garcia, [facility] HEMOGLOBIN A1C 2022-06-23 11:40:00 Garcia, [facility] TSH/FREE T4 IF INDICATED 2022-06-23 11:40:00 Garcia, [facility] METHYLMALONIC ACID 2022-06-23 11:40:00 Garcia, [facility] BASIC METABOLIC PANEL 2022-06-23 03:53:00 Kirsten [facility] LIPID PANEL 2022-06-23 03:53:00 Garcia, [facility] MR BRAIN WITH & WITHOUT IV 2022-06-22 20:25:00 Kirsten Alexis pitts [facility] CONTRAST [facility] MR CERVICAL SPINE WITH & 2022-06-22 20:25:00 Alexis Curtis [facility] WITHOUT IV CONTRAST Medical Cent er SARS-COV2/RT-PCR ([facility] & 2022-06-22 09:36:00 TaAniceto Danny [facility] REF LABS) [facility] BASIC METABOLIC PANEL 2022-06-22 05:55:00 Kirsten Alexis yovani [facility] BASIC METABOLIC PANEL 2022-06-21 01:36:00 Kirsten [facility] VITAMIN B12 2022-06-19 16:59:00 Umang Valdivia [facility] XR ANKLE 3 VIEWS LEFT 2022-06-19 14:20:00 Aniceto Ta [facility] BASIC METABOLIC PANEL 2022-06-19 04:50:00 Arin Quezada [facility] CBC W/PLT COUNT & AUTO 2022-06-19 04:50:00 Arin Quezada [facility] PROTHROMBIN TIME/INR 2022-06-19 04:50:[address] [facility] MAGNESIUM 2022-06-19 04:50:[address] [facility] URIC ACID 2022-06-19 04:50:00 Aniceto Ta Danny [facility] CBC W/PLT COUNT & AUTO 2022-06-19 04:50:00 Arin Quezada [facility] POCT-GLUCOSE METER 2022-06-09 11:39:00 Nealissa [facility] POCT-GLUCOSE METER 2022-06-09 07:01:00 Sierra [facility] BASIC METABOLIC PANEL 2022-06-09 04:08:00 Tyler Hardy [facility] CBC W/PLT COUNT & AUTO 2022-06-09 04:08:[address] [facility] CBC W/PLT COUNT & AUTO 2022-06-09 04:08:[address] [facility] POCT-GLUCOSE METER 2022-06-08 20:57:00 Nealissa [facility] POCT-GLUCOSE METER 2022-06-08 16:38:00 Sierra [facility] POCT-GLUCOSE METER 2022-06-08 12:00:00 Nealissa [facility] POCT-GLUCOSE METER 2022-06-08 08:13:00 Nealissa [facility] BASIC METABOLIC PANEL 2022-06-08 04:45:00 Tyler Hardy [facility] CBC W/PLT COUNT & AUTO 2022-06-08 04:45:[address] [facility] CBC W/PLT COUNT & AUTO 2022-06-08 04:45:[address] [facility] POCT-GLUCOSE METER 2022-06-07 21:02:00 Bryan Esquivel [facility] POCT-GLUCOSE METER 2022-06-07 17:14:00 Bryan Esquivel [facility] POCT-GLUCOSE METER 2022-06-07 11:05:00 [facility] 2022-06-07 07:28:00 Sierra [facility] BASIC METABOLIC PANEL 2022-06-07 03:39:00 Tyler Hardy [facility] CBC W/PLT COUNT & AUTO 2022-06-07 03:39:[address] [facility] CBC W/PLT COUNT & AUTO 2022-06-07 03:39:[address] [facility] POCT-GLUCOSE METER 2022-06-06 20:43:00 [facility] POCT-GLUCOSE METER 2022-06-06 16:56:00 [facility] POCT-GLUCOSE METER 2022-06-06 11:22:00 [facility] SARS-COV2/RT-PCR ([facility] & 2022-06-06 08:18:00 Tyler Hardy [facility] REF [facility] POCT-GLUCOSE METER 2022-06-06 07:22:00 [facility] BASIC METABOLIC PANEL 2022-06-06 04:38:00 Tyler Hardy [facility] CBC W/PLT COUNT & AUTO 2022-06-06 04:38:[address] [facility] CBC W/PLT COUNT & AUTO 2022-06-06 04:38:[address] [facility] POCT-GLUCOSE METER 2022-06-05 20:49:00 [facility] POCT-GLUCOSE METER 2022-06-05 11:53:00 Ladi Esquivelu [facility] POCT-GLUCOSE METER 2022-06-05 06:46:00 Neason, [facility] BASIC METABOLIC PANEL 2022-06-05 04:25:00 Tyler Hardy [facility] CBC W/PLT COUNT & AUTO 2022-06-05 04:25:[address] [facility] CBC W/PLT COUNT & AUTO 2022-06-05 04:25:[address] [facility] POCT-GLUCOSE METER 2022-06-04 20:47:00 Nealissa [facility] POCT-GLUCOSE METER 2022-06-04 16:17:00 Sierra [facility] POCT-GLUCOSE METER 2022-06-04 11:29:00 [facility] POCT-GLUCOSE METER 2022-06-04 06:44:00 [facility] BASIC METABOLIC PANEL 2022-06-04 05:02:00 Tyler Hardy [facility] CBC W/PLT COUNT & AUTO 2022-06-04 05:02:[address] [facility] CBC W/PLT COUNT & AUTO 2022-06-04 05:02:[address] [facility] CT CHEST WITH IV CONTRAST 2022-06-04 02:03:00 Tyler Hardy [facility] CT ABDOMEN/PELVIS WITH IV 2022-06-04 02:03:00 Tyler Hardy [facility] POCT-GLUCOSE METER 2022-06-03 21:08:00 [facility] POCT-GLUCOSE METER 2022-06-03 17:05:00 Nealissa [facility] POCT-GLUCOSE METER 2022-06-03 11:06:00 Sierra [facility] POCT-GLUCOSE METER 2022-06-03 07:26:00 Sierra [facility] BASIC METABOLIC PANEL 2022-06-03 04:28:00 Tyler Hardy [facility] CBC W/PLT COUNT & AUTO 2022-06-03 04:28:[address] [facility] CBC W/PLT COUNT & AUTO 2022-06-03 04:28:[address] [facility] POCT-GLUCOSE METER 2022-06-02 20:51:00 Nealissa [facility] POCT-GLUCOSE METER 2022-06-02 14:41:00 Sierra [facility] POCT-ACT 2022-06-02 13:49:00 [facility] CATHETERIZATION, HEART, 2022-06-02 12:49:00 Billie Vyas [facility] LEFT, WITH PERCUTANEOUS [facility] CORONARY INTERVENTION POCT-GLUCOSE METER 2022-06-02 11:08:00 Nealissa [facility] POCT-GLUCOSE METER 2022-06-02 07:54:00 Sierra [facility] CBC W/PLT COUNT & AUTO 2022-06-02 04:18:[address] [facility] CBC W/PLT COUNT & AUTO 2022-06-02 04:18:[address] [facility] BASIC METABOLIC PANEL 2022-06-02 04:17:00 Tyler Hardy [facility] POCT-GLUCOSE METER 2022-06-01 20:56:00 [facility] POCT-GLUCOSE METER 2022-06-01 16:29:00 Sierra [facility] POCT-GLUCOSE METER 2022-06-01 11:50:00 [facility] POCT-GLUCOSE METER 2022-06-01 07:21:00 Syeda Sanchez [facility] MAGNESIUM 2022-06-01 04:44:00 [facility] PHOSPHORUS 2022-06-01 04:44:00 Ramirez [facility] BASIC METABOLIC PANEL 2022-06-01 04:44:00 Tyler Hardy CH I [facility] CBC W/PLT COUNT & AUTO 2022-06-01 04:44:[address] [facility] CBC W/PLT COUNT & AUTO 2022-06-01 04:44:[address] [facility] POCT-GLUCOSE METER 2022-05-31 21:37:00 Daniel [facility] 2D ECHO W/ DOPPLER 2022-05-31 17:38:[address] [facility] (CW/PW/COLOR) [facility] POCT-GLUCOSE METER 2022-05-31 17:06:00 Daniel [facility] POCT-GLUCOSE METER 2022-05-31 11:44:00 Daniel [facility] POCT-GLUCOSE METER 2022-05-31 06:53:00 Merissa Ambrocio [facility] XR ABDOMEN/KUB 1 VIEW 2022-05-31 06:47:00 Amalia Deleon [facility] XR CHEST 1 VIEW PORTABLE / 2022-05-31 06:44:00 Amalia Deleon [facility] BEDSIDE [facility] HIGH SENSITIVITY TROPONIN I 2022-05-31 06:35:00 Eli Deleon [facility] ECG 12-LEAD 2022-05-31 06:20:00 Amalia Deleon [facility] ECG 12-LEAD 2022-05-31 06:20:00 Unknown, H[facility] ECG 12-LEAD 2022-05-31 06:20:00 Unknown, H[facility] MAGNESIUM 2022-05-31 04:37:00 [facility] PHOSPHORUS 2022-05-31 04:37:00 [facility]OLIC PANEL 2022-05-31 04:37:00 Tyler Hardy [facility] CBC W/PLT COUNT & AUTO 2022-05-31 04:37:[address] [facility] CBC W/PLT COUNT & AUTO 2022-05-31 04:37:00 Syeda Sanchez [facility] POCT-GLUCOSE METER 2022-05-30 21:10:00 Merissa Ambrocio [facility] CT ABDOMEN/PELVIS WITHOUT 2022-05-30 18:15:00 Tyler Hardy [facility] IV CONTRAST [facility] POCT-GLUCOSE METER 2022-05-30 16:54:00 Merissa Ambrocio [facility] SARS-COV2/RT-PCR ([facility] & 2022-05-30 16:21:00 Tyler Hardy [facility] REF LABS) [facility] NM MYOCARDIAL PERFUSION 2022-05-30 14:14:00 Syeda Sanchez [facility] PET/CT (REST & STRESS) Medical C enter ECG 12-LEAD 2022-05-30 13:25:46 Unknown, Hl7 [facility] ECG 12-LEAD 2022-05-30 13:25:46 Unknown, H[facility]7 [facility] ECG 12-LEAD 2022-05-30 13:25:46 Unknown, Hl7 [facility] VITAMIN B12 BINDING 2022-05-30 09:39:00 [facility] B1 2022-05-30 09:39:00 [facility] POCT-GLUCOSE METER 2022-05-30 07:54:00 Merissa Ambrocio [facility] MAGNESIUM 2022-05-30 04:29:00 Radha [facility] PHOSPHORUS 2022-05-30 04:29:00 Ramirez [facility] BASIC METABOLIC PANEL 2022-05-30 04:29:00 Tyler Hardy CH I [facility] CBC W/PLT COUNT & AUTO 2022-05-30 04:29:[address] [facility] CBC W/PLT COUNT & AUTO 2022-05-30 04:29:00 Syeda Sanchez [facility] POCT-GLUCOSE METER 2022-05-29 21:05:00 Merissa Ambrocio [facility] CAROTID DOPPLER BILATERAL 2022-05-29 20:25:00 Tyler Hardy [facility] POCT-GLUCOSE METER 2022-05-29 16:43:00 Merissa Ambrocio [facility] CARCINOEMBRYONIC ANTIGEN 2022-05-29 16:18:00 Tyler Hardy [facility] (CEA) [facility] CARBOHYDRATE ANTIGEN 19-9 2022-05-29 16:18:00 Tyler Hardy [facility] (CA 19-9) [facility] ALPHA FETOPROTEIN (AFP), 2022-05-29 16:18:00 Tyler Hardy [facility] TUMOR MARKER [facility] POCT-GLUCOSE METER 2022-05-29 11:14:00 Merissa Ambrocio [facility] POCT-GLUCOSE METER 2022-05-29 07:24:00 Merissa Ambrocio [facility] BASIC METABOLIC PANEL 2022-05-29 04:34:00 Ramirez [facility] PROTHROMBIN TIME/INR 2022-05-29 04:34:00 Ramirez [facility] MAGNESIUM 2022-05-29 04:34:00 Ramirez [facility] PHOSPHORUS 2022-05-29 04:34[facility] AUTO 2022-05-29 04:34:00 Joslyn Guzm[facility] CBC W/PLT COUNT & AUTO 2022-05-29 04:34:00 Joslyn Guzm[facility] DIFFERENTIAL [facility] VASCULAR DIAGRAM -SCAN 2022-05-29 00:00:00 Provider, Default [facility] CARDIAC CATH REPORT - SCAN 2022-05-29 00:00:00 Provider, Default [facility] Plan of Care Planned Activity Planned Date Details Comments Source Future Scheduled 2025-06-23 Lipid panel (procedure) [facility] 00:00:00 [code = 58621940] Medical Ce nter Future Scheduled 2023-07-[address] [facility] 00:00:00 [facility] r Screening (12+) [code = Tobacco Cessation Counseling and Screening (12+)] Future Scheduled 2023-06-[address] [facility] 00:00:00 [facility] r Screening (12+) [code = Tobacco Cessation Counseling and Screening (12+)] Future Scheduled 2022-07-[address] [facility] 00:00:00 (12+) [code = Medical Center DEPRESSION SCREENING (12+)] Future Scheduled 2022-03-12 INFLUENZA VACCINE (#1) [facility]00 [code = INFLUENZA Medical Ce nter VACCINE (#1)] Future Scheduled 2021-07-[address] [facility] 00:00:00 (12+) [code = Medical Center DEPRESSION SCREENING (12+)] Future Scheduled 2010 SHINGLES VACCINES ([address] [facility] 00:00:00 2) [code = SHINGLES [facility] VACCINES (1 of 2)] Future Scheduled 2010 SHINGLES VACCINES ([address] [facility] 00:00:00 2) [code = SHINGLES [facility] VACCINES (1 of 2)] Future Scheduled 1995 Lipid panel (procedure) [facility] 00:00:00 [code = 59437843] Medical Ce nter Future Scheduled 1979 DTAP/TDAP/TD VACCINES [facility] 00:00:00 (1 - Tdap) [code = Medical C enter DTAP/TDAP/TD VACCINES (1 - Tdap)] Future Scheduled 1979 DTAP/TDAP/TD VACCINES [facility] 00:00:00 (1 - Tdap) [code = Medical C enter DTAP/TDAP/TD VACCINES (1 - Tdap)] Future Scheduled 1978 HEPATITIS C SCRE[facility]ING [facility] 00:00:00 [code = HEPATITIS C Medical Center SCREENING] Future Scheduled 1978 HEPATITIS C [facility]CRE[facility]ING [facility]:00:00 [code = HEPATITIS C Medical Center SCREENING] Future Scheduled [address] [facility] 00:00:00 0-64 YRS (1 - PCV) Medical C enter [code = PNEUMOCOCCAL VACCINE 0-64 YRS (1 - PCV)] Future Scheduled [address] [facility] 00:00:00 0-64 YRS (1 - PCV) Medical C enter [code = PNEUMOCOCCAL VACCINE 0-64 YRS (1 - PCV)] Future Scheduled 1960 COVID-19 VACCINE (#1) [facility] 00:00:00 [code = COVID-[address] VACCINE (#1)] Future Scheduled 1960 COVID-19 VACCINE (#1) [facility] 00:00:00 [code = COVID-[address] VACCINE (#1)] Future Scheduled 1960 CT Colonography (combo) [facility] 00:00:00 [code = CT Colonography [facility] (combo)] Future Scheduled 1960 Screening for malignant [facility] 00:00:00 neoplasm of colon Medical Ce nter (procedure) [code = 259503073] Future Scheduled 1960 Screening for malignant [facility] 00:00:00 neoplasm of colon Medical Ce nter (procedure) [code = 305602294] Future Scheduled 1960 Screening for malignant [facility] 00:00:00 neoplasm of colon Medical Ce nter (procedure) [code = 025451906] Future Scheduled 1960 Screening for malignant [facility] 00:00:00 neoplasm of colon Medical Ce nter (procedure) [code = 982844128] Future Scheduled 1960 Sigmoidoscopy [code = [facility] Sigmoidoscopy] Medical Cente r Future Scheduled 1960 CT Colonography (combo) [facility] 00:00:00 [code = CT Colonography [facility] (combo)] Future Scheduled 1960 Screening for malignant [facility] 00:00:00 neoplasm of colon Medical Ce nter (procedure) [code = 028515263] Future Scheduled 1960 Screening for malignant [facility] 00:00:00 neoplasm of colon Medical Ce nter (procedure) [code = 662910731] Future Scheduled 1960 Screening for malignant [facility] 00:00:00 neoplasm of colon Medical Ce nter (procedure) [code = 113074455] Future Scheduled 1960 Screening for malignant [facility] 00:00:00 neoplasm of colon Medical Ce nter (procedure) [code = 961623210] Future Scheduled 1960 Sigmoidoscopy [code = [facility] S[facility]oidoscopy] Medical Cente r Encounters Start End Encounter Admission Attending Care Care Encounter Source Date/Time Date/Time Type Type Clinicians Facility Department ID 2022-06-18 2022-07-24 Inpatient UR ANICETO TA [facility] Neurology [id number] SLE 23:46:00 19:13:00 2022-06-18 [facility]22[facility] [id number] 23:46:00 19:13:00 Encounter Aniceto Ta Fady Ahmad [facility] Teja Bateman Peter Denton Henderson, Edith Ifeoma 2022-06-19 2022-06-19 Travel [facility] [id number] [facility]00 00:00:00 [facility] 2022-05-29 2022-06-09 Inpatient ER FREDA ESQUIVEL General Med [id number] SLE 01:15:00 16:04:00 BRYAN 2022-05-29 2022-06-09 [facility] Merissa Ambrocio [facility] [id number] [facility] 01:15:00 16:04:00 Encounter DanielSyeda melendez [facility] 2022-05-29 2022-06-09 [facility] Merissa Ambrocio [facility] [id number] [facility] 01:15:00 16:04:00 Encounter Syeda Sanchez [facility] 2022-06-02 2022-06-02 Surgery [facility], [facility] [id number] 12:15:00 14:52:00 [facility] 2022-06-02 2022-06-02 Surgery [facility], [facility] [id number] 12:15:00 14:52:00 [facility] 2022-05-31 2022-05-31 Outpatient [facility] [id number] [facility] 00:00:00 23:59:00 Carolina juarez of Medicin e 2022-05-30 2022-05-[address] [facility] [id number] 00:00:00 00:00:00 Only [facility] 2022-05-30 2022-05-[address] [facility] [id number] 00:00:00 00:00:00 Only [facility] 2022-05-29 2022-05-29 Travel [facility] [id number] [facility] 00:[facility]:00 00:00:00 [facility] 2022-05-29 2022-05-29 Travel [facility] [id number] [facility] 00:[facility]00 00:00:00 [facility] Results Test Description Test Time Test Comments Results Result Comments Source BASIC METABOLIC PANEL 2022-07-24 13:28:55 Test Item Value Reference Range Interpretation Comme nts SODIUM (BEAKER) (test 132 meq/L 136-145 L code = 381) POTASSIUM (BEAKER) 4.9 meq/L 3.5-5.1 (test code = 379) CHLORIDE (BEAKER) (test 101 meq/L 98-107 code = 382) CO2 (BEAKER) (test code 21 meq/L 22-29 L = 355) BLOOD UREA NITROGEN 17 mg/dL 7-21 (BEAKER) (test code = 354) CREATININE (BEAKER) 0.74 mg/dL 0.57-1.25 (test code = 358) GLUCOSE RANDOM (BEAKER) 89 mg/dL 70-105 (test code = 652) CALCIUM (BEAKER) (test 10.2 mg/dL 8.4-10.2 code = 697) EGFR (BEAKER) (test 102 mL/min/1.73 sq I nterpretation of eGFR values code = 1092) m Stage Descripti on Result G1 Normal or high >=90 G2 Mildly decreased 60-89 G3a Mildly to moderately 45-5 9 G3b Moderately to severely 30- 44 G4 Severly decreased 15-29 G5 Kidney failure <15Repo rted eGFR is based on the CK D-EPI 2020 equation that d oes not use a race coefficien tEstimated GFR is not as accurate as Creatinine Clearance in pr edicting glomerular filt ration rate. Estimated GFR i s not applicable for dialysis ghada ma City Councilman ID - [id number] 12:41:59 Test Item Value Reference Range Interpretation Comments SODIUM (BEAKER) (test code = 381) 134 meq/L 136-145 L POTASSIUM (BEAKER) (test code = 4.3 meq/L 3.5-5.1 379) CHLORIDE (BEAKER) (test code = 382) 98 meq/L 98-107 CO2 (BEAKER) (test code = 355) 28 meq/L 22-29 City Councilman ID - PAVAN BPOC-Glucose [id number] 11:45:50 Test Item Value Reference Range Interpretation Comments POC-Glucose Meter (test 102 mg/dL 70-110 : TE STED AT [facility] code = 1538) [address] [place], [address]: City Councilman/Techni ilir ID = [id number] for TSERING FARR Lab Interpretation (test Normal code = 17522-4) [employer] [facility] [id number] 11:45:50 Test Item Value Reference Range Interpretation Comments POC-GLUCOSE METER 102 mg/dL 70-110 : TESTED A T [facility] 6720 (BEAKER) (test code = GREYSON Roca [facility], 1538) [address]: City Councilman/Techni ilir ID = [id number] for IRINA CHRISTENSEN POCT-GLUCOSE [id number] 08:25:45 Test Item Value Reference Range Interpretation Comments POC-GLUCOSE METER 108 mg/dL 70-110 : TESTED A T [facility] 6720 (BEAKER) (test code = [facility] Abelino [facility], 1538) [address]: City Councilman/Techni ilir ID = [id number] for Katie Cruz POCT-GLUCOSE [id number] 17:31:55 Test Item Value Reference Range Interpretation Comments POC-GLUCOSE METER 108 mg/dL 70-110 : TESTED A T [facility] 6720 (BEAKER) (test code = [facility], 1538) [address]: City Councilman/Techni ilir ID = [id number] for IRINA CHRISTENSEN POCT-GLUCOSE [id number] 12:55:04 Test Item Value Reference Range Interpretation Comments POC-GLUCOSE METER 111 mg/dL 70-110 H : TESTED A T [facility] 6720 (BEAKER) (test code = [facility], 1538) [address]87: City Councilman/Techni ilir ID = [id number] for Dat Silva POCT-GLUCOSE [id number] 09:03:52 Test Item Value Reference Range Interpretation Comments POC-GLUCOSE METER 128 mg/dL 70-110 H : TESTED A T [facility] 6720 (BEAKER) (test code = [facility], 1538) [address]: City Councilman/Techni ilir ID = [id number] for IRINA CHRISTENSEN SARS-CoV2/RT-PCR (Asymptomatic ONLY)2022-07-20 07:10:51 Test Item Value Reference Interpretation Comments Range SARS-COV2/RT-PCR Negative Negative The SARS-Co V-2 (test code = target nucleic 11071-1) acids are not detected in thi s [...] rapid, real-richard e RT-PCR test intended for th e qualitative detection of nucleic acid fr om SARS-CoV-2 in a nasopharyngeal swab specimen collec chely from individual s suspected of COVID-19 [...] revoked sooner. Fact Sheet for Healthcare Providers: https://www.BucketFeet/Documents/Xp ert%20Xpress%20SAR S%20CoV-2/Fact%20S heets/302-3802%20S ARS-COV-2%20HEALTH CARE%20PROVIDERS%2 0FACT%20SHEET.pdf Fact Sheet for Healthcare Patients: https://wwwPresidium Learning/Documents/Xp ert%20Xpress%20SAR S%20CoV-2/Fact%20S heets/302-3801%20S ARS-COV-2%20PATIEN T%20FACT%20SHEET.p df Lab Interpretation Normal (test code = 65036-9) [facility])2022-07-20 07:10:51 Test Item Value Reference Range Interpretation Comments SARS-COV2/RT-PCR Negative Negative The SARS-Co V-2 target (test code = nucleic acids a re not 4641185) detected in thi s specimen. Negative result [...] revoked sooner. Fact Sheet for Healthcare Providers: https://www.Align Technology m/Documents/Xpert%20Xpress%20SARS%20CoV-2/Fact%20Sheets/302-3802%63TJIR-FIM-2%20 HEALTHCARE%20PROVIDERS%20FACT%20SHEET.pdf Fact Sheet for Healthcare Patients: https://www.Quipper/Documents/Xpert%20Xp ress%20SARS%20CoV-2/Fact%20Sheets/3023801%87REVK-BBB-6%20PATIENT%20FACT%20SHEET .pdfPOCT-GLUCOSE [id number] 22:07:58 Test Item Value Reference Range Interpretation Comments POC-GLUCOSE METER 111 mg/dL 70-110 H : TESTED A T [facility] 6720 (BEAKER) (test code = [facility], 153) [address]: City Councilman/Techni ilir ID = [id number] for Pravin Santos POCT-GLUCOSE [id number] 18:42:03 Test Item Value Reference Range Interpretation Comments POC-GLUCOSE METER 129 mg/dL 70-110 H : TESTED A T [facility] 6720 (BEAKER) (test code = [facility], 1538) [address]: City Councilman/Techni ilir ID = [id number] for Mattie DELGADO POCT-GLUCOSE [id number] 08:03:40 Test Item Value Reference Range Interpretation Comments POC-GLUCOSE METER 112 mg/dL 70-110 H : TESTED A T [facility] 6720 (BEAKER) (test code = [facility], 1538) 24284: City Councilman/Techni ilir ID = [id number] for Mattie DELGADO BASIC METABOLIC [id number] 06:25:19 Test Item Value Reference Range Interpretation Comments SODIUM (BEAKER) 137 meq/L 136-145 (test code = 381) POTASSIUM 4.1 meq/L 3.5-5.1 (BEAKER) (test code = 379) CHLORIDE (BEAKER) 106 meq/L 98-107 (test code = 382) CO2 (BEAKER) 24 meq/L 22-29 (test code = 355) BLOOD UREA 17 mg/dL 7-21 NITROGEN (BEAKER) (test code = 354) CREATININE 0.69 mg/dL 0.57-1.25 (BEAKER) (test code = 358) GLUCOSE RANDOM 82 mg/dL 70-105 (BEAKER) (test code = 652) CALCIUM (BEAKER) 8.7 mg/dL 8.4-10.2 (test code = 697) EGFR (BEAKER) 104 Interpretatio n of eGFR (test code = mL/min/1.73 values Stage D escription 1092) sq m Result G1 Allie l [...] not appl icable for dialysis patien ts City Councilman ID - MARCOPOCT-GLUCOSE [id number] 22:05:09 Test Item Value Reference Range Interpretation Comments POC-GLUCOSE METER 111 mg/dL 70-110 H : TESTED A T [facility] 6720 (BEAKER) (test code = [facility], 1538) 016[address]: City Councilman/Techni ilir ID = [id number] for Pravin Santos POCT-GLUCOSE [id number] 21:56:03 Test Item Value Reference Range Interpretation Comments POC-GLUCOSE METER 113 mg/dL 70-110 H : TESTED A T [facility] 6720 (BEAKER) (test code = [facility], 1538) 61670: City Councilman/Techni ilir ID = [id number] for [place] M[place]IA POCT-GLUCOSE [id number] 13:07:32 Test Item Value Reference Range Interpretation Comments POC-GLUCOSE METER 121 mg/dL 70-110 H : TESTED A T [facility] 6720 (BEAKER) (test code = GREYSON Roca [facility], 1538) 15671: City Councilman/Techni ilir ID = [id number] for [place] M[place]IA POCT-GLUCOSE [id number] 08:10:20 Test Item Value Reference Range Interpretation Comments POC-GLUCOSE METER 138 mg/dL 70-110 H : TESTED A T [facility] 6720 (BEAKER) (test code = GREYSON Roca [facility], 1538) 57676: City Councilman/Techni ilir ID = [id number] for [place] BASIC METABOLIC [id number] 06:36:32 Test Item Value Reference Range Interpretation Comments SODIUM (BEAKER) 135 meq/L 136-145 L (test code = 381) POTASSIUM 4.4 meq/L [...] not appl icable for dialysis patien ts City Councilman ID - MARCOCBC W/PLT COUNT & AUTO [id number] 06:11:06 Test Item Value Reference Range Interpretation Comments WHITE BLOOD CELL COUNT (BEAKER) 7.1 K/ L 3.5-10.5 (test code = 775) RED BLOOD CELL COUNT (BEAKER) 3.95 M/ L 4.63-6.08 L (test code = 761) HEMOGLOBIN (BEAKER) (test code = 12.2 GM/DL 13.7-17.5 L 410) HEMATOCRIT (BEAKER) (test code = 35.5 % 40.1-51.0 L 411) MEAN CORPUSCULAR VOLUME (BEAKER) 90 fL 79-92 (test code = 753) MEAN CORPUSCULAR HEMOGLOBIN 30.9 pg 25.7-32.2 (BEAKER) (test code = 751) MEAN CORPUSCULAR HEMOGLOBIN CONC 34.4 GM/DL 32.3-36.5 (BEAKER) (test code = 752) RED CELL DISTRIBUTION WIDTH 13.0 % 11.6-14.4 (BEAKER) (test code = 412) PLATELET COUNT (BEAKER) (test 196 K/CU MM 150-450 code = 756) MEAN PLATELET VOLUME (BEAKER) 8.7 fL 9.4-12.4 L (test code = 754) NUCLEATED RED BLOOD CELLS 0 /100 WBC 0-0 (BEAKER) (test code = 413) NEUTROPHILS RELATIVE PERCENT 55 % (BEAKER) (test code = 429) LYMPHOCYTES RELATIVE PERCENT 30 % (BEAKER) (test code = 430) MONOCYTES RELATIVE PERCENT 10 % (BEAKER) (test code = 431) EOSINOPHILS RELATIVE PERCENT 5 % (BEAKER) (test code = 432) BASOPHILS RELATIVE PERCENT 1 % (BEAKER) (test code = 437) NEUTROPHILS ABSOLUTE COUNT 3.85 K/ L 1.78-5.38 (BEAKER) (test code = 670) LYMPHOCYTES ABSOLUTE COUNT 2.10 K/ L 1.32-3.57 (BEAKER) (test code = 414) MONOCYTES ABSOLUTE COUNT (BEAKER) 0.67 K/ L 0.30-0.82 (test code = 415) EOSINOPHILS ABSOLUTE COUNT 0.36 K/ L 0.04-0.54 (BEAKER) (test code = 416) BASOPHILS ABSOLUTE COUNT (BEAKER) 0.04 K/ L 0.01-0.08 (test code = 417) IMMATURE GRANULOCYTES-RELATIVE 0.40 % 0.00-1.00 PERCENT (BEAKER) (test code = 2801) POCT-GLUCOSE [id number] 21:51:47 Test Item Value Reference Range Interpretation Comments POC-GLUCOSE METER 107 mg/dL 70-110 : TESTED A T [facility] 6720 (BEAKER) (test code = [facility], 1538) 48873: City Councilman/Techni ilir ID = [id number] for TAYA CAGE POCT-GLUCOSE [id number] 17:47:35 Test Item Value Reference Range Interpretation Comments POC-GLUCOSE METER 128 mg/dL 70-110 H : TESTED A T [facility] 6720 (BEAKER) (test code = [facility], 1538) 36289: City Councilman/Techni ilir ID = [id number] for Um eh, Akumbu POCT-GLUCOSE [id number] 12:56:02 Test Item Value Reference Range Interpretation Comments POC-GLUCOSE METER 114 mg/dL 70-110 H : TESTED A T [facility] 6720 (BEAKER) (test code = [facility], 1538) 78024: City Councilman/Techni ilir ID = [id number] for Um eh, [place] POCT-GLUCOSE [id number] 09:56:26 Test Item Value Reference Range Interpretation Comments POC-GLUCOSE METER 93 mg/dL 70-110 : TESTED A T [facility] 6720 (BEAKER) (test code = [facility], 1538) 24345: City Councilman/Techni ilir ID = [id number] for Umeh , [place] BASIC METABOLIC [id number] 06:52:25 Test Item Value Reference Range Interpretation Comments SODIUM (BEAKER) 134 meq/L 136-145 L (test code = 381) POTASSIUM 4.3 meq/L 3.5-5.1 (BEAKER) (test code = 379) CHLORIDE (BEAKER) 103 meq/L 98-107 (test code = 382) CO2 (BEAKER) 24 meq/L 22-29 (test code = 355) BLOOD UREA 17 mg/dL 7-21 NITROGEN (BEAKER) (test code = 354) CREATININE 0.78 mg/dL 0.57-1.25 ([facility]) (test code = 358) GLUCOSE RANDOM 88 mg/dL 70-105 ([facility]) (test code = 652) CALCIUM ([facility]) 9.1 mg/dL 8.4-10.2 (test code = 697) EGFR ([facility]) 101 Interpretatio n of eGFR (test code = mL/min/1.73 values Stage D escription 1092) sq m Result G1 Allie l or high >=90 G2 Mildly decreased 60-89 G3a Mildl y to moderately 45-5 9 G3b Moderately to s everely 30-44 G4 Severl y decreased 15-29 G5 Kidney failure <15Reported eGF R is based on the CKD-EPI 2020 equation that d oes not use a race coefficientEsti mated GFR is not as accur ate as Creatinine Brigitte sohnda in predicting glom erular filtration rate . Estimated GFR is not appl icable for dialysis patien ts City Councilman ID - ADMINPOCT-GLUCOSE [id number] 21:31:13 Test Item Value Reference Range Interpretation Comments POC-GLUCOSE METER 123 mg/dL 70-110 H : Notified RN/MD: ([facility]) (test code = TESTED AT [place] [address] 1537) [facility], [address]: City Councilman/Techni ilir ID = [id number] for LATHBRIDGE, JILLIAN ICE POCT-GLUCOSE [id number] 18:00:17 Test Item Value Reference Range Interpretation Comments POC-GLUCOSE METER 124 mg/dL 70-110 H : TESTED A T [facility] 6720 ([facility]) (test code = [facility], 153) 81900: City Councilman/Techni ilir ID = [id number] for AK INSONU, AZIZA POCT-GLUCOSE [id number] 13:13:09 Test Item Value Reference Range Interpretation Comments POC-GLUCOSE METER 136 mg/dL 70-110 H : TESTED A T [facility] 6720 ([facility]) (test code = [facility], 153) 40098: City Councilman/Techni ilir ID = [id number] for AK INSONU, AZIZA POCT-GLUCOSE [id number] 08:37:32 Test Item Value Reference Range Interpretation Comments POC-GLUCOSE METER 108 mg/dL 70-110 : TESTED A T [facility] 6720 (BEAKER) (test code = [place], 1538) 679[address]: City Councilman/Techni ilir ID = [id number] for AZIZA US BASIC METABOLIC [id number] 04:49:51 Test Item Value Reference Range Interpretation Comments SODIUM (BEAKER) 132 meq/L 136-145 L (test code = 381) POTASSIUM 3.9 meq/L 3.5-5.1 (BEAKER) (test code = 379) CHLORIDE (BEAKER) 103 meq/L 98-107 (test code = 382) CO2 (BEAKER) 21 meq/L 22-29 L (test code = 355) BLOOD UREA 20 mg/dL 7-21 NITROGEN (BEAKER) (test code = 354) CREATININE 0.76 mg/dL 0.57-1.25 (BEAKER) (test code = 358) GLUCOSE RANDOM 108 mg/dL 70-105 H (BEAKER) (test code = 652) CALCIUM (BEAKER) 9.0 mg/dL 8.4-10.2 (test code = 697) EGFR (BEAKER) 102 Interpretati on of eGFR (test code = mL/min/1.73 values Stage De scription 1092) sq m Result G1 Allie l or high >=90 G2 Mildly decreased 60-89 G3a Mildl y to moderately 45-5 9 G3b Moderately to s everely 30-44 G4 Severl y decreased 15-29 G5 Kidney failure <15Reported eGF R is based on the CKD-EPI 1 equation that d oes not use a race coefficientEsti mated GFR is not as accur ate as Creatinine Brigitte shonda in predicting glom erular filtration rate . Estimated GFR is not appl icable for dialysis patien ts City Councilman ID - MARCOCBC W/PLT COUNT & AUTO [id number] 04:29:03 Test Item Value Reference Range Interpretation Comments WHITE BLOOD CELL COUNT (BEAKER) 6.4 K/ L 3.5-10.5 (test code = 775) RED BLOOD CELL COUNT (BEAKER) 3.75 M/ L 4.63-6.08 L (test code = 761) HEMOGLOBIN (BEAKER) (test code = 11.5 GM/DL 13.7-17.5 L 410) HEMATOCRIT (BEAKER) (test code = 33.9 % 40.1-51.0 L 411) MEAN CORPUSCULAR VOLUME (BEAKER) 90 fL 79-92 (test code = 753) MEAN CORPUSCULAR HEMOGLOBIN 30.7 pg 25.7-32.2 (BEAKER) (test code = 751) MEAN CORPUSCULAR HEMOGLOBIN CONC 33.9 GM/DL 32.3-36.5 (BEAKER) (test code = 752) RED CELL DISTRIBUTION WIDTH 12.9 % 11.6-14.4 (BEAKER) (test code = 412) PLATELET COUNT (BEAKER) (test 187 K/CU MM 150-450 code = 756) MEAN PLATELET VOLUME (BEAKER) 9.0 fL 9.4-12.4 L (test code = 754) NUCLEATED RED BLOOD CELLS 0 /100 WBC 0-0 (BEAKER) (test code = 413) NEUTROPHILS RELATIVE PERCENT 53 % (BEAKER) (test code = 429) LYMPHOCYTES RELATIVE PERCENT 32 % (BEAKER) (test code = 430) MONOCYTES RELATIVE PERCENT 10 % (BEAKER) (test code = 431) EOSINOPHILS RELATIVE PERCENT 5 % (BEAKER) (test code = 432) BASOPHILS RELATIVE PERCENT 1 % (BEAKER) (test code = 437) NEUTROPHILS ABSOLUTE COUNT 3.42 K/ L 1.78-5.38 (BEAKER) (test code = 670) LYMPHOCYTES ABSOLUTE COUNT 2.03 K/ L 1.32-3.57 (BEAKER) (test code = 414) MONOCYTES ABSOLUTE COUNT (BEAKER) 0.63 K/ L 0.30-0.82 (test code = 415) EOSINOPHILS ABSOLUTE COUNT 0.29 K/ L 0.04-0.54 (BEAKER) (test code = 416) BASOPHILS ABSOLUTE COUNT (BEAKER) 0.04 K/ L 0.01-0.08 (test code = 417) IMMATURE GRANULOCYTES-RELATIVE 0.30 % 0.00-1.00 PERCENT (BEAKER) (test code = 2801) POCT-GLUCOSE [id number] 21:55:25 Test Item Value Reference Range Interpretation Comments POC-GLUCOSE METER 132 mg/dL 70-110 H : TESTED A T [facility] 6720 (BEAKER) (test code = [place], 1538) [address]: City Councilman/Techni ilir ID = [id number] for Pravin Santos POCT-GLUCOSE [id number] 16:54:38 Test Item Value Reference Range Interpretation Comments POC-GLUCOSE METER 172 mg/dL 70-110 H : TESTED A T [facility] 6720 (BEAKER) (test code ROSARIO [facility], = 1538) 45971: City Councilman/Techni ilir ID = [id number] for Anthony Boyer CORTISOL,60 [id number] 13:32:09 Test Item Value Reference Range Interpretation Comments CORTISOL BASELINE NETWORKED 9.3 mcg/dL (BEAKER) (test code = 2307) CORTISOL 30 MINUTE NETWORKED 18.7 mcg/dL (BEAKER) (test code = 2308) CORTISOL, 60 MINUTE (BEAKER) 21.5 ug/dL (test code = 1805) ACTH STIMULATION TEST INTERPRETATION GUIDELINES(Synonyms: Cortrosyn Test, Cosyntropin or Corticotropin Stimulation Test)Adenocorticotropic hormone (ACTH)is a tropic hormone, made in the pituitary gland, which travels trhough the bloodstream and stimulates the cortex of the adrenal glands to release co rtisol. Cortisol is a primary hormone, which aids the body's metabolism of fats, carbohydrates, and protein as well as sodium and potassium regulation.ACTH Stimulation Test: Exogenous administration ofbiologically active ACTH stimulates the secretion of cortisol from the adrenal gland. This test is used to evaluate adrenal function by measuring cortisol levels at baseline and at 30 and 60 minutes after the administration of 250 micrograms of cosyntropin (Cortrosyn). Patients who have received exogenous corticosteroids immediately prior to performing the ACTH Stimulation Test will often have elevated baseline cortisol levels, which may lead to erroneous interpretation of test results. The notable exception is with dexamethasone.Normal Response: An increase in cortisol after stimulation by ACTH isnormal. Post-stimulation cortisol concentration should be greater than 20 mcg/dL or the rate of risefrom baseline cortisol should be greater than or equal to 9 mcg/dL.Patients with sepsis or septic shock: According to a study by Chris et al (DRISS 2000,283(8):2731-45), the ACTH Stimulation Test provides important prognostic information. This study defined 3 groups of patients with sepsis or septic shock: 1. Good Survival: Low basal cortisol (<or=34 mcg/dL) and high ACTH response (>9mcg/dL) 2. Intermediate Survival: Low basal cortisol (<34 mcg/dL) and low response to ACTH (<or=9 mcg/dL) OR High basal cortisol (>34 mcg/dL) or high ACTH response (>9 mcg/dL) 3. Poor Survival: High basal cortisol (>34 mcg/dL) and low ACTH response (<or=9 mcg/dL).Treatment of patients with relative adrenal dysfunction may be indicated based on test results and the clinical condition of the patient. Additional information, including treatment recommendations, is available in critically ill patients, approved by the Pharmacy, Nutrition, and Therapeutics Committee on 06/20/2004 and available th rough the Pharmacy Policy and Procedure Section on The Source.City Councilman ID - MANPREET GPOCT-GLUCOSE [id number] 13:23:53 Test Item Value Reference Range Interpretation Comments POC-GLUCOSE METER 96 mg/dL 70-110 : TESTED A T [facility] 6720 ([employer]) (test code = GREYSON Roca [facility], 1538) 35[address]: City Councilman/Techni ilir ID = [id number] for Anthony Boyer CORTISOL,30 [id number] 12:48:04 Test Item Value Reference Range Interpretation Comments CORTISOL BASELINE NETWORKED 9.3 mcg/dL (BEAKER) (test code = 2307) CORTISOL, 30 MINUTE (BEAKER) (test 18.7 ug/dL code = 1804) ACTH STIMULATION TEST INTERPRETATION GUIDELINES(Synonyms: Cortrosyn Test, Cosyntropin or Corticotropin Stimulation Test)Adenocorticotropic hormone (ACTH)is a tropic hormone, made in the pituitary gland, which travels trhough the bloodstream and stimulates the cortex of the adrenal glands to release co rtisol. Cortisol is a primary hormone, which aids the body's metabolism of fats, carbohydrates, and protein as well as sodium and potassium regulation.ACTH Stimulation Test: Exogenous administration ofbiologically active ACTH stimulates the secretion of cortisol from the adrenal gland. This test is used to evaluate adrenal function by measuring cortisol levels at baseline and at 30 and 60 minutes after the administration of 250 micrograms of cosyntropin (Cortrosyn). Patients who have received exogenous corticosteroids immediately prior to performing the ACTH Stimulation Test will often have elevated baseline cortisol levels, which may lead to erroneous interpretation of test results. The notable exception is with dexamethasone.Normal Response: An increase in cortisol after stimulation by ACTH isnormal. Post-stimulation cortisol concentration should be greater than 20 mcg/dL or the rate of risefrom baseline cortisol should be greater than or equal to 9 mcg/dL.Patients with sepsis or septic shock: According to a study by Chris et al (DRISS 2000,283(8):1038-45), the ACTH Stimulation Test provides important prognostic information. This study defined 3 groups of patients with sepsis or septic shock: 1. Good Survival: Low basal cortisol (<or=34 mcg/dL) and high ACTH response (>9mcg/dL) 2.Intermediate Survival: Low basal cortisol (<34 mcg/dL) and low response to ACTH (<or=9 mcg/dL)OR High basal cortisol (>34 mcg/dL) or high ACTH response (>9 mcg/dL) 3. Poor Survival: High basal cortisol (>34 mcg/dL) and low ACTH response (<or=9 mcg/dL).Treatment of patients with relative adrenal dysfunction may be indicated based on test results and the clinical condition of the patient. Additional information, including treatment recommendations, is available in critically ill patients, approved by the Pharmacy, Nutrition, and Therapeutics Committee on 06/20/2004 and available through the Pharmacy Policy and Procedure Section on The Source.City Councilman ID - MANPREET GProtein Electrophoresis, [id number] 12:05:39 Test Item Value Reference Range Interpretation Comments Pre-Albumin (CSF) TNP Test Not (test code = 24165-8) Perfor med. Albumin, CSF (test TNP Test Not code = 1746-7) Performed. Uiknx-4-Huasizke CSF TNP Test No t (test code = 43580-9) Perfor med. Kukea-5-Kyoqaptm CSF TNP Test No t (test code = 4032175) Perfor med. Beta Globulin (CSF) TNP Test Not (test code = 57895-8) Perfor med. Gamma Globulin (CSF) TNP Test No t (test code = 36102-0) Perfor med. Interpretation (test TNP Test No t code = 8804190) Performed. Specimen quantity not sufficient afte r other testscompleted. Test not performed. JUANA (test code = JUANA) Performing Lab 15 [facility]/Arjun kyle [place] [address] [place] [address] Nathaniel Ceja MD, PhD [facility] Center[facility]ORT[facility],[id number] 11:03:25 Test Item Value Reference Range Interpretation Comments CORTISOL, BASELINE (BEAKER) (test 9.3 ug/dL code = 1803) ACTH STIMULATION TEST INTERPRETATION GUIDELINES(Synonyms: Cortrosyn Test, Cosyntropin or Corticotropin Stimulation Test)Adenocorticotropic hormone (ACTH)is a tropic hormone, made in the pituitary gland, which travels trhough the bloodstream and stimulates the cortex of the adrenal glands to release co rtisol. Cortisol is a primary hormone, which aids the body's metabolism of fats, carbohydrates, and protein as well as sodium and potassium regulation.ACTH Stimulation Test: Exogenous administration ofbiologically active ACTH stimulates the secretion of cortisol from the adrenal gland. This test is used to evaluate adrenal function by measuring cortisol levels at baseline and at 30 and 60 minutes after the administration of 250 micrograms of cosyntropin (Cortrosyn). Patients who have received exogenous corticosteroids immediately prior to performing the ACTH Stimulation Test will often have elevated baseline cortisol levels, which may lead to erroneous interpretation of test results. The notable exception is with dexamethasone.Normal Response: An increase in cortisol after stimulation by ACTH isnormal. Post-stimulation cortisol concentration should be greater than 20 mcg/dL or the rate of risefrom baseline cortisol should be greater than or equal to 9 mcg/dL.Patients with sepsis or septic shock: According to a study by Chris et al (DRISS 2000,283(8):1038-45), the ACTH Stimulation Test provides important prognostic information. This study defined 3 groups of patients with sepsis or septic shock: 1. Good Survival: Low basal cortisol (<or=34 mcg/dL) and high ACTH response (>9mcg/dL) 2.Intermediate Survival: Low basal cortisol (<34 mcg/dL) and low response to ACTH (<or=9 mcg/dL)OR High basal cortisol (>34 mcg/dL) or high ACTH response (>9 mcg/dL) 3. Poor Survival: High basal cortisol (>34 mcg/dL) and low ACTH response (<or=9 mcg/dL).Treatment of patients with relative adrenal dysfunction may be indicated based on test results and the clinical condition of the patient. Additional information, including treatment recommendations, is available in critically ill patients, approved by the Pharmacy, Nutrition, and Therapeutics Committee on 06/20/2004 and available through the Pharmacy Policy and Procedure Section on The Source.City Councilman ID - MANPREET GPOCT-GLUCOSE METER 2022-07-15 09:29:24 Test Item Value Reference Range Interpretation Comments POC-GLUCOSE METER 121 mg/dL 70-110 H : [facility] ([facility] = 1538) [address]: City Councilman/Techni ilir ID = [id number] for Celestina Power Johnjose luisjanusz BASIC METABOLIC [id number] 05:53:47 Test Item Value Reference Range Interpretation Comments SODIUM (BEAKER) 134 meq/L 136-145 L (test code = 381) POTASSIUM 4.9 meq/L 3.5-5.1 (BEAKER) (test code = 379) CHLORIDE (BEAKER) 105 meq/L 98-107 (test code = 382) CO2 (BEAKER) 22 meq/L 22-29 (test code = 355) BLOOD UREA 15 mg/dL 7-21 NITROGEN (BEAKER) (test code = 354) CREATININE 0.75 mg/dL 0.57-1.25 (BEAKER) (test code = 358) GLUCOSE RANDOM 86 mg/dL 70-105 (BEAKER) (test code = 652) CALCIUM (BEAKER) 9.3 mg/dL 8.4-10.2 (test code = 697) EGFR (BEAKER) 102 Interpretatio n of eGFR (test code = mL/min/1.73 values Stage De scription 1092) sq m Result G1 Allie l or high >=90 G2 Mildly decreased 60-89 G3a Mildl y to moderately 45- 59 G3b Moderately to s everely 30-44 G4 Severl y decreased 15-29 G5 Kidney failure <15Reported eGF R is based on the CKD-EPI 2020 equation that d oes not use a race coefficientEsti mated GFR is not as accur ate as Creatinine Brigitte shonda in predicting glom erular filtration rate . Estimated GFR is not appl icable for dialysis patien ts City Councilman ID - MANPREET [id number] 05:44:11 Test Item Value Reference Range Interpretation Comments D-DIMER QUANTITATIVE (BEAKER) 0.51 MG/L FEU <0.50 H (test code = 671) Intended Use: The D-Dimer Assay can be used to aid in the diagnosis of Deep Vein Thrombosis (DVT) and Pulmonary Embolism Disease (PED).In patients with low pre- test probability, various studies concerning STA Liatest D-dimer test have reported that with a cutoff value of 0.50 MG/L FEU, the Negative Predictive Value (NPV) regarding the exclusion of thrombosis is within 95-100% range.POCT- GLUCOSE [id number] 21:54:00 Test Item Value Reference Range Interpretation Comments POC-GLUCOSE METER 112 mg/dL 70-110 H : TESTED A T [facility] 6720 (BEAKER) (test code = [facility], 1538) [address]: City Councilman/Techni ilir ID = [id number] for Pravin Santos POCT-GLUCOSE [id number] 17:50:55 Test Item Value Reference Range Interpretation Comments POC-GLUCOSE METER 112 mg/dL 70-110 H : TESTED A T [facility] 6720 (BEAKER) (test code = [facility], 1538) 84985: City Councilman/Techni ilir ID = [id number] for CHERYL THOMPSON POCT-GLUCOSE [id number] 13:03:01 Test Item Value Reference Range Interpretation Comments POC-GLUCOSE METER 102 mg/dL 70-110 : TESTED A T [facility] 6720 (BEAKER) (test code = [facility], 1538) 27231: City Councilman/Techni ilir ID = [id number] for Katie Cruz RAD, CHEST, 1 VIEW, NON [id number] 11:54:00Reason for exam:- >hypoxia/SOBShould this be performed at the bedside?->Yes [facility] 1960 Sex: MFINAL REPORT INDICATION: hypoxia/SOB COMPARISON: None TECHNIQUE: Single frontal view of the chest. FINDINGS: Lungs and pleura: Clear lungs. No effusion.Heart and mediastinum: Normal heart size. Unremarkable mediastinal contours.Osseous structures: No acute abnormality.Other: None. IMPRESSION: No acute intrathoracic abnormality. Signed: Tatyana Bang MDReport Verified Date/Time: 07/14/2022 11:54:52 Reading Location: [address] Reading Room POCT-GLUCOSE [id number] 10:02:04 Test Item Value Reference Range Interpretation Comments POC-GLUCOSE METER 99 mg/dL 70-110 : TESTED A T [facility] 6720 (BEAKER) (test code = [facility], 1538) 9[address]: City Councilman/Techni ilir ID = [id number] for Jaxon Fernandes Jesika POCT-GLUCOSE [id number] 08:32:19 Test Item Value Reference Range Interpretation Comments POC-GLUCOSE METER 101 mg/dL 70-110 : TESTED A T [facility] 6720 (BEAKER) (test code = [facility], 1538) 17212: City Councilman/Techni ilir ID = [id number] for eh, [place] HEPATIC FUNCTION [id number] 06:23:29 Test Item Value Reference Range Interpretation Comments TOTAL PROTEIN (BEAKER) (test code = 5.6 gm/dL 6.0-8.3 L 770) ALBUMIN (BEAKER) (test code = 1145) 3.5 g/dL 3.5-5.0 BILIRUBIN TOTAL (BEAKER) (test code 1.0 mg/dL 0.2-1.2 = 377) BILIRUBIN DIRECT (BEAKER) (test 0.4 mg/dL 0.1-0.5 code = 706) ALKALINE PHOSPHATASE (BEAKER) (test 47 U/L 40-150 code = 346) AST (SGOT) (BEAKER) (test code = 23 U/L 5-34 353) ALT (SGPT) (BEAKER) (test code = 61 U/L 6-55 H 347) City Councilman ID - MARCOBASIC METABOLIC [id number] 06:23:28 Test Item Value Reference Range Interpretation Comments SODIUM (BEAKER) 129 meq/L 136-145 L (test code = 381) POTASSIUM 4.3 meq/L 3.5-5.1 (BEAKER) (test code = 379) CHLORIDE (BEAKER) 101 meq/L 98-107 (test code = 382) CO2 (BEAKER) 21 meq/L 22-29 L (test code = 355) BLOOD UREA 13 mg/dL 7-21 NITROGEN (BEAKER) (test code = 354) CREATININE 0.73 mg/dL 0.57-1.25 (BEAKER) (test code = 358) GLUCOSE RANDOM 84 mg/dL 70-105 (BEAKER) (test code = 652) CALCIUM (BEAKER) 9.0 mg/dL 8.4-10.2 (test code = 697) EGFR (BEAKER) 103 Interpretatio n of eGFR (test code = [...] not appl icable for dialysis patien ts City Councilman ID - MARCOCBC W/PLT COUNT & AUTO [id number] 06:04:21 Test Item Value Reference Range Interpretation Comments WHITE BLOOD CELL COUNT (BEAKER) 5.0 K/ L 3.5-10.5 (test code = 775) RED BLOOD CELL COUNT (BEAKER) 3.86 M/ L 4.63-6.08 L (test code = 761) HEMOGLOBIN (BEAKER) (test code = 12.0 GM/DL 13.7-17.5 L 410) HEMATOCRIT (BEAKER) (test code = 33.9 % 40.1-51.0 L 411) MEAN CORPUSCULAR VOLUME (BEAKER) 88 fL 79-92 (test code = 753) MEAN CORPUSCULAR HEMOGLOBIN 31.1 pg 25.7-32.2 (BEAKER) (test code = 751) MEAN CORPUSCULAR HEMOGLOBIN CONC 35.4 GM/DL 32.3-36.5 (BEAKER) (test code = 752) RED CELL DISTRIBUTION WIDTH 12.7 % 11.6-14.4 (BEAKER) (test code = 412) PLATELET COUNT (BEAKER) (test 169 K/CU MM 150-450 code = 756) MEAN PLATELET VOLUME (BEAKER) 8.6 fL 9.4-12.4 L (test code = 754) NUCLEATED RED BLOOD CELLS 0 /100 WBC 0-0 (BEAKER) (test code = 413) NEUTROPHILS RELATIVE PERCENT 42 % (BEAKER) (test code = 429) LYMPHOCYTES RELATIVE PERCENT 40 % (BEAKER) (test code = 430) MONOCYTES RELATIVE PERCENT 10 % (BEAKER) (test code = 431) EOSINOPHILS RELATIVE PERCENT 6 % (BEAKER) (test code = 432) BASOPHILS RELATIVE PERCENT 1 % (BEAKER) (test code = 437) NEUTROPHILS ABSOLUTE COUNT 2.07 K/ L 1.78-5.38 (BEAKER) (test code = 670) LYMPHOCYTES ABSOLUTE COUNT 2.00 K/ L 1.32-3.57 (BEAKER) (test code = 414) MONOCYTES ABSOLUTE COUNT (BEAKER) 0.52 K/ L 0.30-0.82 (test code = 415) EOSINOPHILS ABSOLUTE COUNT 0.32 K/ L 0.04-0.54 (BEAKER) (test code = 416) BASOPHILS ABSOLUTE COUNT (BEAKER) 0.05 K/ L 0.01-0.08 (test code = 417) IMMATURE GRANULOCYTES-RELATIVE 0.60 % 0.00-1.00 PERCENT (BEAKER) (test code = 2801) POCT-GLUCOSE [id number] 22:04:25 Test Item Value Reference Range Interpretation Comments POC-GLUCOSE METER 109 mg/dL 70-110 : TESTED A T [facility] 6720 (BEAKER) (test code = [facility], 1538) [address]: City Councilman/Techni ilir ID = [id number] for Pravin Santos BASIC METABOLIC [id number] 17:53:02 Test Item Value Reference Range Interpretation Comments SODIUM (BEAKER) 128 meq/L 136-145 L (test code = 381) POTASSIUM 4.6 meq/L 3.5-5.1 (BEAKER) (test code = 379) CHLORIDE (BEAKER) 97 meq/L 98-107 L (test code = 382) CO2 (BEAKER) 23 meq/L 22-29 (test code = 355) BLOOD UREA 14 [...] not appl icable for dialysis patien ts City Councilman ID - BSSARS-COV2/RT-PCR ([facility])2022-07-13 17:37:27 Test Item Value Reference Range Interpretation Comments SARS-COV2/RT-PCR Negative Negative The SARS-Co V-2 target (test code = nucleic acids a re not 3505325) detected in thi s specimen. Negative result [...] revoked sooner. Fact Sheet for Healthcare Providers: https://www.[employer] m/Documents/Xpert%20Xpress%20SARS%20CoV-2/Fact%20Sheets/3023802%06VKWX-QNL-2%20 HEALTHCARE%20PROVIDERS%20FACT%20SHEET.pdf Fact Sheet for Healthcare Patients: https://www.[employer]/Documents/Xpert%20Xp ress%20SARS%20CoV-2/Fact%20Sheets/3023801%31KVWN-IYL-2%20PATIENT%20FACT%20SHEET .pdfPOCT-GLUCOSE [id number] 17:30:14 Test Item Value Reference Range Interpretation Comments POC-GLUCOSE METER 96 mg/dL 70-110 : TESTED A T [facility] 6720 ([employer]) (test code = [facility], 153) [address]: City Councilman/Techni ilir ID = [id number] for THIEN ARAMBULABUNNY, IRINA POCT-GLUCOSE [id number] 12:21:32 Test Item Value Reference Range Interpretation Comments POC-GLUCOSE METER 114 mg/dL 70-110 H : TESTED A T [facility] 6720 ([employer]) (test code = [facility], 153) 22273: City Councilman/Techni ilir ID = [id number] for IRINA CHRISTENSEN POCT-GLUCOSE [id number] 08:36:47 Test Item Value Reference Range Interpretation Comments POC-GLUCOSE METER 116 mg/dL 70-110 H : TESTED A T [facility] 6720 (BEAKER) (test code = [facility], 1538) 57684: City Councilman/Techni ilir ID = [id number] for Bailey Huntley BASIC METABOLIC [id number] 04:57:33 Test Item Value Reference Range Interpretation Comments SODIUM (BEAKER) 130 meq/L 136-145 L (test code = 381) POTASSIUM 5.5 meq/L 3.5-5.1 H Specimen modera tely (BEAKER) (test hemolyzed code = 379) CHLORIDE (BEAKER) 101 meq/L 98-107 (test code = 382) CO2 (BEAKER) 20 meq/L 22-29 L (test code = 355) BLOOD UREA 14 mg/dL 7-21 NITROGEN (BEAKER) (test code = 354) CREATININE 0.77 mg/dL 0.57-1.25 Specimen modera tely (BEAKER) (test hemolyzed code = 358) GLUCOSE RANDOM 83 mg/dL 70-105 (BEAKER) (test code = 652) [...] not appl icable for dialysis patien ts City Councilman ID - PIAYA LPOCT-GLUCOSE [id number] 21:25:05 Test Item Value Reference Range Interpretation Comments POC-GLUCOSE METER 113 mg/dL 70-110 H : TESTED A T [facility] 6720 (BEAKER) (test code [facility], = 1538) 37885: City Councilman/Techni ilir ID = [id number] for Kike Ramos POCT-GLUCOSE [id number] 18:06:10 Test Item Value Reference Range Interpretation Comments POC-GLUCOSE METER 117 mg/dL 70-110 H : TESTED A T [facility] 6720 (BEAKER) (test code = [facility], 1538) 48427: City Councilman/Techni ilir ID = [id number] for An sonia, Naila POCT-GLUCOSE [id number] 12:34:06 Test Item Value Reference Range Interpretation Comments POC-GLUCOSE METER 114 mg/dL 70-110 H : TESTED A T [facility] 6720 (BEAKER) (test code = [facility], 1538) 76104: City Councilman/Techni ilir ID = [id number] for An sonia, Naila POCT-GLUCOSE [id number] 07:54:16 Test Item Value Reference Range Interpretation Comments POC-GLUCOSE METER 104 mg/dL 70-110 : TESTED A T [facility] 6720 (BEAKER) (test code = [facility], 1538) 20155: City Councilman/Techni ilir ID = [id number] for An sonia, Naila BASIC METABOLIC [id number] 06:47:01 Test Item Value Reference Range Interpretation Comments SODIUM (BEAKER) 132 meq/L 136-145 L (test code = 381) POTASSIUM 4.1 meq/L 3.5-5.1 (BEAKER) (test code = 379) CHLORIDE (BEAKER) 101 meq/L 98-107 (test code = 382) CO2 (BEAKER) 21 meq/L 22-29 L (test code = 355) BLOOD UREA 12 mg/dL 7-21 NITROGEN (BEAKER) (test code = 354) CREATININE 0.76 mg/dL 0.57-1.25 (BEAKER) (test code = 358) GLUCOSE RANDOM 102 mg/dL 70-105 (BEAKER) (test code = 652) CALCIUM (BEAKER) 9.1 mg/dL 8.4-10.2 (test code = 697) EGFR [...] not appl icable for dialysis patien ts City Councilman ID - PIAYA LCBC W/PLT COUNT & AUTO [id number] 05:35:20 Test Item Value Reference Range Interpretation Comments WHITE BLOOD CELL COUNT (BEAKER) 4.7 K/ L 3.5-10.5 (test code = 775) RED BLOOD CELL COUNT (BEAKER) 4.13 M/ L 4.63-6.08 L (test code = 761) HEMOGLOBIN (BEAKER) (test code = 12.8 GM/DL 13.7-17.5 L 410) HEMATOCRIT (BEAKER) (test code = 37.1 % 40.1-51.0 L 411) MEAN CORPUSCULAR VOLUME (BEAKER) 90 fL 79-92 (test code = 753) MEAN CORPUSCULAR HEMOGLOBIN 31.0 pg 25.7-32.2 (BEAKER) (test code = 751) MEAN CORPUSCULAR HEMOGLOBIN CONC 34.5 GM/DL 32.3-36.5 (BEAKER) (test code = 752) RED CELL DISTRIBUTION WIDTH 12.8 % 11.6-14.4 (BEAKER) (test code = 412) PLATELET COUNT (BEAKER) (test 146 K/CU MM 150-450 L code = 756) MEAN PLATELET VOLUME (BEAKER) 9.0 fL 9.4-12.4 L (test code = 754) NUCLEATED RED BLOOD CELLS 0 /100 WBC 0-0 (BEAKER) (test code = 413) NEUTROPHILS RELATIVE PERCENT 48 % (BEAKER) (test code = 429) LYMPHOCYTES RELATIVE PERCENT 36 % (BEAKER) (test code = 430) MONOCYTES RELATIVE PERCENT 9 % (BEAKER) (test code = 431) EOSINOPHILS RELATIVE PERCENT 6 % (BEAKER) (test code = 432) BASOPHILS RELATIVE PERCENT 1 % (BEAKER) (test code = 437) NEUTROPHILS ABSOLUTE COUNT 2.26 K/ L 1.78-5.38 (BEAKER) (test code = 670) LYMPHOCYTES ABSOLUTE COUNT 1.71 K/ L 1.32-3.57 (BEAKER) (test code = 414) MONOCYTES ABSOLUTE COUNT (BEAKER) 0.41 K/ L 0.30-0.82 (test code = 415) EOSINOPHILS ABSOLUTE COUNT 0.28 K/ L 0.04-0.54 (BEAKER) (test code = 416) BASOPHILS ABSOLUTE COUNT (BEAKER) 0.04 K/ L 0.01-0.08 (test code = 417) IMMATURE GRANULOCYTES-RELATIVE 0.20 % 0.00-1.00 PERCENT (BEAKER) (test code = 2801) POCT-GLUCOSE [id number] 21:32:03 Test Item Value Reference Range Interpretation Comments POC-GLUCOSE METER 120 mg/dL 70-110 H : TESTED A T [facility] 6720 (BEAKER) (test code [facility], = 1538) 50636: City Councilman/Techni ilir ID = [id number] for Kike Ramos POCT-GLUCOSE [id number] 17:52:43 Test Item Value Reference Range Interpretation Comments POC-GLUCOSE METER 112 mg/dL 70-110 H : TESTED A T [facility] 6720 (BEAKER) (test code = [facility], 1538) 42680: City Councilman/Techni ilir ID = [id number] for Um eh, [place] POCT-GLUCOSE [id number] 12:38:06 Test Item Value Reference Range Interpretation Comments POC-GLUCOSE METER 106 mg/dL 70-110 : TESTED A T [facility] 6720 (BEAKER) (test code = [facility], 1538) 22581: City Councilman/Techni ilir ID = [id number] for Um eh, [place] POCT-GLUCOSE [id number] 07:54:24 Test Item Value Reference Range Interpretation Comments POC-GLUCOSE METER 115 mg/dL 70-110 H : TESTED A T [facility] 6720 (BEAKER) (test code = [facility], 1538) 56491: City Councilman/Techni ilir ID = [id number] for Um eh, [place] [id number] 05:46:10 Test Item Value Reference Range Interpretation Comments CORTISOL, TOTAL (BEAKER) (test code 3.7 ug/dL 3.7-19.4 = 2755) City Councilman ID - MARCOBASIC METABOLIC [id number] 05:28:46 Test Item Value Reference Range Interpretation Comments SODIUM (BEAKER) 132 meq/L 136-145 L (test code = 381) POTASSIUM 4.9 meq/L 3.5-5.1 (BEAKER) (test code = 379) CHLORIDE (BEAKER) 102 meq/L 98-107 (test code = 382) CO2 (BEAKER) 22 meq/L 22-29 (test code = 355) BLOOD UREA 12 mg/dL 7-21 NITROGEN (BEAKER) (test code = 354) CREATININE 0.71 mg/dL 0.57-1.25 (BEAKER) (test code = 358) GLUCOSE RANDOM 85 mg/dL 70-105 (BEAKER) (test code = 652) CALCIUM (BEAKER) 9.4 mg/dL 8.4-10.2 (test code = 697) EGFR (BEAKER) 103 Interpretati on of eGFR (test code = mL/min/1.73 values [...] not appl icable for dialysis patien ts City Councilman ID - MARCOCBC W/PLT COUNT & AUTO [id number] 05:10:21 Test Item Value Reference Range Interpretation Comments WHITE BLOOD CELL COUNT (BEAKER) 5.4 K/ L 3.5-10.5 (test code = 775) RED BLOOD CELL COUNT (BEAKER) 4.22 M/ L 4.63-6.08 L (test code = 761) HEMOGLOBIN (BEAKER) (test code = 13.0 GM/DL 13.7-17.5 L 410) HEMATOCRIT (BEAKER) (test code = 37.8 % 40.1-51.0 L 411) MEAN CORPUSCULAR VOLUME (BEAKER) 90 fL 79-92 (test code = 753) MEAN CORPUSCULAR HEMOGLOBIN 30.8 pg 25.7-32.2 (BEAKER) (test code = 751) MEAN CORPUSCULAR HEMOGLOBIN CONC 34.4 GM/DL 32.3-36.5 (BEAKER) (test code = 752) RED CELL DISTRIBUTION WIDTH 13.0 % 11.6-14.4 (BEAKER) (test code = 412) PLATELET COUNT (BEAKER) (test 152 K/CU MM 150-450 code = 756) MEAN PLATELET VOLUME (BEAKER) 8.9 fL 9.4-12.4 L (test code = 754) NUCLEATED RED BLOOD CELLS 0 /100 WBC 0-0 (BEAKER) (test code = 413) NEUTROPHILS RELATIVE PERCENT 52 % (BEAKER) (test code = 429) LYMPHOCYTES RELATIVE PERCENT 34 % (BEAKER) (test code = 430) MONOCYTES RELATIVE PERCENT 9 % (BEAKER) (test code = 431) EOSINOPHILS RELATIVE PERCENT 4 % (BEAKER) (test code = 432) BASOPHILS RELATIVE PERCENT 1 % (BEAKER) (test code = 437) NEUTROPHILS ABSOLUTE COUNT 2.80 K/ L 1.78-5.38 (BEAKER) (test code = 670) LYMPHOCYTES ABSOLUTE COUNT 1.83 K/ L 1.32-3.57 (BEAKER) (test code = 414) MONOCYTES ABSOLUTE COUNT (BEAKER) 0.51 K/ L 0.30-0.82 (test code = 415) EOSINOPHILS ABSOLUTE COUNT 0.24 K/ L 0.04-0.54 (BEAKER) (test code = 416) BASOPHILS ABSOLUTE COUNT (BEAKER) 0.04 K/ L 0.01-0.08 (test code = 417) IMMATURE GRANULOCYTES-RELATIVE 0.40 % 0.00-1.00 PERCENT (BEAKER) (test code = 2801) POCT-GLUCOSE [id number] 17:59:25 Test Item Value Reference Range Interpretation Comments POC-GLUCOSE METER 113 mg/dL 70-110 H : TESTED A T [facility] 6720 (BEAKER) (test code = [facility], 153) 66618: City Councilman/Techni ilir ID = [id number] for Bailey Huntley POCT-GLUCOSE [id number] 11:49:37 Test Item Value Reference Range Interpretation Comments POC-GLUCOSE METER 126 mg/dL 70-110 H : TESTED A T [facility] 6720 (BEAKER) (test code = [facility], 1538) 98203: City Councilman/Techni ilir ID = [id number] for Um eh, [place] POCT-GLUCOSE [id number] 07:38:24 Test Item Value Reference Range Interpretation Comments POC-GLUCOSE METER 99 mg/dL 70-110 : TESTED A T [facility] 6720 (BEAKER) (test code = [facility], 1538) 10808: City Councilman/Techni ilir ID = [id number] for Umeh , [place] POCT-GLUCOSE [id number] 07:33:24 Test Item Value Reference Range Interpretation Comments POC-GLUCOSE METER 102 mg/dL 70-110 : TESTED A T [facility] 6720 (BEAKER) (test code = [facility], 1538) 31277: City Councilman/Techni ilir ID = [id number] for Ty lerLeenahawn URIC [id number] 06:53:20 Test Item Value Reference Range Interpretation Comments URIC ACID (BEAKER) 5.3 mg/dL 2.6-7.2 Specimen slightly (test code = 773) hemolyzed City Councilman ID - MARCOBASIC METABOLIC [id number] 06:31:31 Test Item Value Reference Range Interpretation Comments SODIUM (BEAKER) 129 meq/L 136-145 L (test code = 381) POTASSIUM 4.6 meq/L 3.5-5.1 Specimen slight ly (BEAKER) (test hemolyzed code = 379) CHLORIDE (BEAKER) 100 meq/L 98-107 (test code = 382) CO2 (BEAKER) 24 meq/L 22-29 (test code = 355) BLOOD UREA 10 mg/dL 7-21 NITROGEN (BEAKER) (test code = 354) CREATININE 0.70 mg/dL 0.57-1.25 Specimen slight ly (BEAKER) (test hemolyzed code = 358) GLUCOSE RANDOM 85 mg/dL 70-105 (BEAKER) (test code = 652) CALCIUM (BEAKER) 9.0 mg/dL 8.4-10.2 (test code = 697) EGFR (BEAKER) 104 Interpretatio n of eGFR (test code = [...] not appl icable for dialysis patien ts City Councilman ID - PIAYA LSodium Na-Stat [id number] 06:15:10 Test Item Value Reference Range Interpretation Comments Sodium (test code = 2951-2) 129 meq/L 136-145 L Lab Interpretation (test code = Abnormal 11004-7) [facility] [id number] 06:15:10 Test Item Value Reference Range Interpretation Comments SODIUM (BEAKER) (test code = 381) 129 meq/L 136-145 L CBC W/PLT COUNT & AUTO [id number] 06:03:22 Test Item Value Reference Range Interpretation Comments WHITE BLOOD CELL COUNT (BEAKER) 5.1 K/ L 3.5-10.5 (test code = 775) RED BLOOD CELL COUNT (BEAKER) 4.29 M/ L 4.63-6.08 L (test code = 761) HEMOGLOBIN (BEAKER) (test code = 13.4 GM/DL 13.7-17.5 L 410) HEMATOCRIT (BEAKER) (test code = 39.4 % 40.1-51.0 L 411) MEAN CORPUSCULAR VOLUME (BEAKER) 92 fL 79-92 (test code = 753) MEAN CORPUSCULAR HEMOGLOBIN 31.2 pg 25.7-32.2 (BEAKER) (test code = 751) MEAN CORPUSCULAR HEMOGLOBIN CONC 34.0 GM/DL 32.3-36.5 (BEAKER) (test code = 752) RED CELL DISTRIBUTION WIDTH 12.9 % 11.6-14.4 (BEAKER) (test code = 412) PLATELET COUNT (BEAKER) (test 142 K/CU MM 150-450 L code = 756) MEAN PLATELET VOLUME (BEAKER) 8.7 fL 9.4-12.4 L (test code = 754) NUCLEATED RED BLOOD CELLS 0 /100 WBC 0-0 (BEAKER) (test code = 413) NEUTROPHILS RELATIVE PERCENT 47 % (BEAKER) (test code = 429) LYMPHOCYTES RELATIVE PERCENT 37 % (BEAKER) (test code = 430) MONOCYTES RELATIVE PERCENT 10 % (BEAKER) (test code = 431) EOSINOPHILS RELATIVE PERCENT 5 % (BEAKER) (test code = 432) BASOPHILS RELATIVE PERCENT 1 % (BEAKER) (test code = 437) NEUTROPHILS ABSOLUTE COUNT 2.42 K/ L 1.78-5.38 (BEAKER) (test code = 670) LYMPHOCYTES ABSOLUTE COUNT 1.91 K/ L 1.32-3.57 (BEAKER) (test code = 414) MONOCYTES ABSOLUTE COUNT (BEAKER) 0.51 K/ L 0.30-0.82 (test code = 415) EOSINOPHILS ABSOLUTE COUNT 0.23 K/ L 0.04-0.54 (BEAKER) (test code = 416) BASOPHILS ABSOLUTE COUNT (BEAKER) 0.04 K/ L 0.01-0.08 (test code = 417) IMMATURE GRANULOCYTES-RELATIVE 0.40 % 0.00-1.00 PERCENT (BEAKER) (test code = 2801) OSMOLALITY, [id number] 16:34:52 Test Item Value Reference Range Interpretation Comments OSMOLALITY, SERUM (BEAKER) (test 264 mOsm/kg 275-295 L code = 615) Osmolality, [id number] 16:20:15 Test Item Value Reference Range Interpretation Comments Osmolality, Ur (test code 360 See_Comment [ Automated message] = 2695-5) The system [employer] generated this result transmitted ref erence range: 50-1,200 mOsm/kg mOsm/kg . The reference range was not used to int erpret this result as normal/abnormal . Lab Interpretation (test Normal code = 26114-0) [facility], [id number] 16:20:15 Test Item Value Reference Range Interpretation Comments OSMOLALITY URINE 360 mOsm/kg See_Comment [Automated message] (BEAKER) (test code = The sy stem which 614) generated this result transmitted ref erence range: 50-1,200 mOsm/kg. The reference range was not used to int erpret this result as normal/abnormal . Sodium, random [id number] 14:08:09 Test Item Value Reference Range Interpretation Comments Sodium Urine (test 46 meq/L code = 2955-3) JUANA (test code = Reference Range: No JUANA) NormalsOperator ID - BS [facility], RANDOM [id number] 14:08:09 Test Item Value Reference Range Interpretation Comments SODIUM URINE (BEAKER) (test code = 46 meq/L 243) Reference Range: No NormalsOperator ID - BSChloride, random [id number] 14:08:08 Test Item Value Reference Range Interpretation Comments Chloride, Urine (test 32 meq/L 20-330 code = 41662-5) JUANA (test code = JUANA) Reference Range: No NormalsOperator ID - BS Lab Interpretation Normal (test code = 25044-4) [facility] [id number] 14:08:08 Test Item Value Reference Range Interpretation Comments CHLORIDE URINE (BEAKER) (test code = 32 meq/L 20330 682) Reference Range: No NormalsOperator ID - BSPOCT-GLUCOSE [id number] 11:28:19 Test Item Value Reference Range Interpretation Comments POC-GLUCOSE METER 128 mg/dL 70-110 H : TESTED A T [facility] 6720 (BEAKER) (test code = [facility] Tucker Blair [facility], 1538) [address]: City Councilman/Techni ilir ID = [id number] for Um eh, [place] POCT-GLUCOSE [id number] 08:00:24 Test Item Value Reference Range Interpretation Comments POC-GLUCOSE METER 116 mg/dL 70-110 H : TESTED A T [facility] 6720 (BEAKER) (test code = [facility] Tucker Blair [facility], 1538) [address]: City Councilman/Techni ilir ID = [id number] for Um eh, [place] POCT-GLUCOSE [id number] 07:46:34 Test Item Value Reference Range Interpretation Comments POC-GLUCOSE METER 101 mg/dL 70-110 : TESTED A T [facility] 6720 (BEAKER) (test code = [facility] Tucker Blair [facility], 1538) [address]: City Councilman/Techni ilir ID = [id number] for Um eh, [place] BASIC METABOLIC [id number] 05:55:43 Test Item Value Reference Range Interpretation Comments SODIUM (BEAKER) 127 meq/L 136-145 L (test code = 381) POTASSIUM 3.9 meq/L 3.5-5.1 (BEAKER) (test code = 379) CHLORIDE (BEAKER) 100 meq/L 98-107 (test code = 382) CO2 (BEAKER) 20 meq/L 22-29 L (test code = 355) BLOOD UREA 11 mg/dL 7-21 NITROGEN (BEAKER) (test code = 354) CREATININE 0.74 mg/dL 0.57-1.25 (BEAKER) (test code = 358) GLUCOSE RANDOM 108 mg/dL 70-105 H (BEAKER) (test code = 652) CALCIUM (BEAKER) 8.8 mg/dL 8.4-10.2 (test code = 697) EGFR (BEAKER) 102 Interpretatio n of eGFR (test code = mL/min/1.73 values Stage D escription 1092) sq m Result G1 Allie l [...] not appl icable for dialysis patien ts City Councilman ID - MANPREET GCBC W/PLT COUNT & AUTO [id number] 04:46:43 Test Item Value Reference Range Interpretation Comments WHITE BLOOD CELL COUNT (BEAKER) 5.5 K/ L 3.5-10.5 (test code = 775) RED BLOOD CELL COUNT (BEAKER) 3.91 M/ L 4.63-6.08 L (test code = 761) HEMOGLOBIN (BEAKER) (test code = 11.9 GM/DL 13.7-17.5 L 410) HEMATOCRIT (BEAKER) (test code = 35.1 % 40.1-51.0 L 411) MEAN CORPUSCULAR VOLUME (BEAKER) 90 fL 79-92 (test code = 753) MEAN CORPUSCULAR HEMOGLOBIN 30.4 pg 25.7-32.2 (BEAKER) (test code = 751) MEAN CORPUSCULAR HEMOGLOBIN CONC 33.9 GM/DL 32.3-36.5 (BEAKER) (test code = 752) RED CELL DISTRIBUTION WIDTH 12.8 % 11.6-14.4 (BEAKER) (test code = 412) PLATELET COUNT (BEAKER) (test 137 K/CU MM 150-450 L code = 756) MEAN PLATELET VOLUME (BEAKER) 9.0 fL 9.4-12.4 L (test code = 754) NUCLEATED RED BLOOD CELLS 0 /100 WBC 0-0 (BEAKER) (test code = 413) NEUTROPHILS RELATIVE PERCENT 45 % (BEAKER) (test code = 429) LYMPHOCYTES RELATIVE PERCENT 38 % (BEAKER) (test code = 430) MONOCYTES RELATIVE PERCENT 12 % (BEAKER) (test code = 431) EOSINOPHILS RELATIVE PERCENT 4 % (BEAKER) (test code = 432) BASOPHILS RELATIVE PERCENT 1 % (BEAKER) (test code = 437) NEUTROPHILS ABSOLUTE COUNT 2.47 K/ L 1.78-5.38 (BEAKER) (test code = 670) LYMPHOCYTES ABSOLUTE COUNT 2.13 K/ L 1.32-3.57 (BEAKER) (test code = 414) MONOCYTES ABSOLUTE COUNT (BEAKER) 0.66 K/ L 0.30-0.82 (test code = 415) EOSINOPHILS ABSOLUTE COUNT 0.21 K/ L 0.04-0.54 (BEAKER) (test code = 416) BASOPHILS ABSOLUTE COUNT (BEAKER) 0.04 K/ L 0.01-0.08 (test code = 417) IMMATURE GRANULOCYTES-RELATIVE 0.50 % 0.00-1.00 PERCENT (BEAKER) (test code = 2801) POCT-GLUCOSE [id number] 21:24:45 Test Item Value Reference Range Interpretation Comments POC-GLUCOSE METER 100 mg/dL 70-110 : TESTED A T [facility] 6720 (BEAKER) (test code [facility], = 1538) [address]: City Councilman/Techni ilir ID = [id number] for Kike Ramos TRISHKyleighSHANIQUAABDIRASHID AB SCR,IFA,[id number] 12:39:35 Test Item Value Reference Range Interpretation Comments Tissue Cells, CSF SEE BELOW No fluores cence (test code = observed on [place] [id number]) tissue. PHOENIX-1 (test code NEGATIVE NEGATIVE = 3088) PHOENIX-2 (test code NEGATIVE NEGATIVE = 3089) PHOENIX-3 (test code NEGATIVE NEGATIVE = 3090) PCA1 (YO) AB, NEGATIVE NEGATIVE IFA, CSF (QUEST) (test code = 2666022) PCA2 AB, IFA, CSF NEGATIVE NEGATIVE (QUEST) (test code = 6478876) ROLL EDGE STITCHER HAND-TR (DNER) AB, NEGATIVE NEGATIVE IFA,CSF (QUEST) (test code = 6784692) AGNA/SOX1 AB, NEGATIVE NEGATIVE IFA, CSF (QUEST) (test code = 3597260) AMPHIPHYSIN (test NEGATIVE NEGATIVE code = 309) CRMP5/CV2 AB, NEGATIVE NEGATIVE IFA, CSF (QUEST) (test code = 9864780) MARIAMA-65 (test code NEGATIVE NEGATIVE = 20040319) AQUAPORIN-4 AB, NEGATIVE NEGATIVE If specific neuronal IFA, CSF (QUEST) autoantibod ies were (test code = not detected, i t does 9074306) not exclude anidiopathic or paraneoplastic autoimmune neurological di sease. In particular,auto antibo dies to neurona l cell surface antigen s (i.e. AQ4, Ampa r 1, AMPAR 2,GABAbR, NMDAR, LGI-1, C ASPR2) may not be dete cted by screening wh ole tissueby IFA. C ell based assays (C BA) testing are considered to b e more sensitivefor th e detection of th asif autoantibodies. If clinically dulce maria cated, testingfor dulce maria vidual autoantibodies or with other auto immune neurological diseasepanels i s available. For further informa tion refer to the Qu est autoimmuneneuro logy website(https:/ /testd irectory.Errplane.Hansen [employer] Son/test/t est-gu ides/CFParaneop lastic Syndromes/paran eoplas tic-neurologica l-synd romes-laborator y-supp fhr-ve-iguikrcz s) This test was developed and i ts analytical performance characteristics havebeen determ ined by [facility] .It has not been cl eared or approved by FDA. This assay has been validatedpursua nt to the CLIA regula tions and is used for clinical purpos es. JUANA (test code = Performing Lab EZ JUANA) [facility] [address] [place] [address] Mitchell Zhong MD, PhD, [facility] HospitalAQP4 AB (IGG), SCREEN, [id number] 12:39:35 Test Item Value Reference Range Interpretation Comments AQP4 AB (IGG), TNP NEGATIVE Test not perf ormed. SCREEN, CSF Reflex testing not QUEST) (test required since code = established 3338891) criteriawas not met. JUANA (test code Performing Lab EZ = JUANA) [employer] [place] [address] [place] [address] Mitchell Zhong MD, PhD, [facility] HospitalAQP4 AB (IGG),TITER,[id number] 12:39:35 Test Item Value Reference Range Interpretation Comments AQP4 AB TNP See_Comment Test not perfor med. (IGG),TITER,CS Reflex testin g not F (QUEST) required since (test code = established 3139444) criteriawas not met. [Automated mess age] The system CONWEAVER generated this result transmit chely reference range : <1:10. The refe rence range was not u sed to interpret th is result as normal/abnormal . JUANA (test code Performing Lab EZ = JUANA) [employer] [place] [address] [place] [address] Mitchell Zhong MD, PhD, [facility] HospitalANNA-3 Ab, IFA Titer, [id number] 12:39:35 Test Item Value Reference Range Interpretation Comments PHOENIX-3 AB, TNP See_Comment Test not perfor med. TITER, CSF Reflex testing not (QUEST) (test required since code = established 8689923) criteriawas not met. [Automated mess age] The system CONWEAVER generated this result transmit chely reference range : <1:10. The refe rence range was not u sed to interpret th is result as normal/abnormal . JUANA (test code Performing Lab EZ = JUANA) [facility] [address] [place] [address] Mitchell Zhong MD, PhD, [facility] HospitalPCA-2 Ab, Titer, [id number] 12:39:35 Test Item Value Reference Range Interpretation Comments ROLL EDGE STITCHER HAND-2 AB, TNP See_Comment Test not perfor med. TITER, CSF Reflex testing not (QUEST) (test required since code = established 0013903) criteriawas not met. [Automated mess age] The system whic h generated this result transmit chely reference range : <1:10. The refe rence range was not u sed to interpret th is result as normal/abnormal . JUANA (test code Performing Lab EZ = JUANA) [facility] [address] [place] [address] Mitchell Zhong MD, PhD, Y[facility] CenterPARANEOPLASTIC AB, LB, [id number] 12:39:35 Test Item Value Reference Range Interpretation Comments ANNA1 (HU) AB, LB, TNP See_Comment Test not CSF (QUEST) (test performed. Reflex code = 3568613) testing not required since established criteriawas not met. [Automated message] The system which generated this result transmit chely reference range : <11 SI. The reference range was not used to interpret this result as normal/abnormal . ANNA2 (RI) AB, LB, TNP See_Comment Test not CSF (QUEST) (test performed. Reflex code = 8263192) testing not required since established criteriawas not met. [Automated message] The system which generated this result transmit chely reference range : <11 SI. The reference range was not used to interpret this result as normal/abnormal . PCA1 (YO) AB, LB, TNP See_Comment Test not CSF (QUEST) (test performed. Reflex code = 9565310) testing not required since established criteriawas not met. [Automated message] The system which generated this result transmit chely reference range : <11 SI. The reference range was not used to interpret this result as normal/abnormal . ROLL EDGE STITCHER HAND-TR (DNER) AB, TNP See_Comment Test not LB, CSF (QUEST) performed. R eflex (test code = testing not 5937754) required since established criteriawas not met. [Automated message] The system which generated this result transmit chely reference range : <11 SI. The reference range was not used to interpret this result as normal/abnormal . CRMP5/CV2 AB, LB, TNP See_Comment Test not CSF (QUEST) (test performed. Reflex code = 1028642) testing not required since established criteriawas not met. [Automated message] The system which generated this result transmit chely reference range : <11 SI. The reference range was not used to interpret this result as normal/abnormal . AMPHIPHYSIN AB, TNP See_Comment Test not LB, CSF (QUEST) performed. R eflex (test code = testing not 18111112) required since established criteriawas not met. [Automated message] The system which generated this result transmit chely reference range : <11 SI. The reference range was not used to interpret this result as normal/abnormal . MARIAMA-65 (test code TNP See_Comment Test not = 20040320) performed. Refl ex testing not required since established criteriawas not met. [Automated message] The system which generated this result transmit chely reference range : <11 SI. The reference range was not used to interpret this result as normal/abnormal . AGNA/SOX1 AB, LB, TNP See_Comment Test not CSF (QUEST) (test performed. Reflex code = ) testing not required since established criteriawas not met. [Automated message] The system which generated this result transmit chely reference range : <11 SI. The reference range was not used to interpret this result as normal/abnormal . JUANA (test code = Performing Lab EZ JUANA) [facility] [address] [place] [address] Mitchell Zhong MD, PhD, Y[facility] CenterPARANEOPLAS AB,CBA,IFA,[id number] 12:39:35 Test Item Value Reference Range Interpretation Comments NMDAR1 AB, CBA, TNP NEGATIVE Test not per formed. CSF (QUEST) Reflex testing not (test code = required since 18111126) established criteriawas not met. AMPAR1 AB, CBA, TNP NEGATIVE Test not per formed. CSF (QUEST) Reflex testing not (test code = required since 18111110) established criteriawas not met. AMPAR2 AB, CBA, TNP NEGATIVE Test not per formed. CSF (QUEST) Reflex testing not (test code = required since 18111111) established criteriawas not met. GABABR AB, CBA, TNP NEGATIVE Test not per formed. CSF (QUEST) Reflex testing not (test code = required since 18111119) established criteriawas not met. LGI1 AB, CBA, TNP NEGATIVE Test not perfo rmed. CSF (QUEST) Reflex testing not (test code = required since 18111120) established criteriawas not met. CASPR2 AB, CBA, TNP NEGATIVE Test not per formed. CSF (QUEST) Reflex testing not (test code = required since 18111116) established criteriawas not met. JUANA (test code Performing Lab EZ = JUANA) [employer] [facility] [place] [address] [place] [address] Mitchell Zhong MD, PhD, [facility], [id number] 12:39:35 Test Item Value Reference Range Interpretation Comments NMDAR1,CBA TNP See_Comment Test not perfor med. IFA,TITER,CSF Reflex testing not (QUEST) (test required since code = established ) criteriawas not met. [Automated mess age] The system CONWEAVER generated this result transmit chely reference range : <1:10. The refe rence range was not u sed to interpret th is result as normal/abnormal . JUANA (test code Performing Lab EZ = JUANA) [employer] [place] [address] [place] [address] Mitchell Zhong MD, PhD, [facility], [id number] 12:39:35 Test Item Value Reference Range Interpretation Comments AMPAR1,CBA TNP See_Comment Test not perfor med. IFA,TITER,CSF Reflex testing not (QUEST) (test required since code = established 8409020) criteriawas not met. [Automated mess age] The system CONWEAVER generated this result transmit chely reference range : <1:10. The refe rence range was not u sed to interpret th is result as normal/abnormal . JUANA (test code Performing Lab EZ = JUANA) [employer] [place] [address] [place] [address] Mitchell Zhong MD, PhD, [facility], [id number] 12:39:35 Test Item Value Reference Range Interpretation Comments AMPAR2,CBA TNP See_Comment Test not perfor med. IFA,TITER,CSF Reflex testing not (QUEST) (test required since code = established 4341771) criteriawas not met. [Automated mess age] The system CONWEAVER generated this result transmit chely reference range : <1:10. The refe rence range was not u sed to interpret th is result as normal/abnormal . JUANA (test code Performing Lab EZ = JUANA) [facility] [address] [place] [address] Mitchell Zhong MD, PhD, [facility], [id number] 12:39:35 Test Item Value Reference Range Interpretation Comments GABABR,CBA TNP See_Comment Test not perfor med. IFA,TITER,CSF Reflex testing not (QUEST) (test required since code = established 3463484) criteriawas not met. [Automated mess age] The system CONWEAVER generated this result transmit chely reference range : <1:10. The refe rence range was not u sed to interpret th is result as normal/abnormal . JUANA (test code Performing Lab EZ = JUANA) [employer] [place] [address] [place] [address] Mitchell Zhong MD, PhD, [facility], [id number] 12:39:35 Test Item Value Reference Range Interpretation Comments LGI1,CBA TNP See_Comment Test not perfor med. IFA,TITER,CSF Reflex testing not (QUEST) (test required since code = established 1901523) criteriawas not met. [Automated mess age] The system CONWEAVER generated this result transmit chely reference range : <1:10. The refe rence range was not u sed to interpret th is result as normal/abnormal . JUANA (test code Performing Lab EZ = JUANA) [employer] [place] [address] [place] [address] Mitchell Zhong MD, PhD, [facility] Centeroplastic, [id number] 12:39:35 Test Item Value Reference Range Interpretation Comments CASPR2,CBA TNP See_Comment Test not perfor med. IFA,TITER,CSF Reflex testing not (QUEST) (test required since code = established 2725364) criteriawas not met. [Automated mess age] The system CONWEAVER generated this result transmit chely reference range : <1:10. The refe rence range was not u sed to interpret th is result as normal/abnormal . JUANA (test code Performing Lab EZ = JUANA) [employer] [facility] [address] [place] [address] Mitchell Zhong MD, PhD, [facility] CenterVGKC Antibody, [id number] 12:39:35 Test Item Value Reference Range Interpretation Comments VGKC AB, CSF TNP See_Comment Test not perfor med. (QUEST) (test Reflex testing not code = required since ) established criteriawas not met. [Automated mess age] The system CONWEAVER generated this result transmit chely reference range : <20 pmol/L. The reference range was not used to interpret this result as normal/abnormal . JUANA (test code Performing Lab EZ = JUANA) [employer] [facility] [address] [place] [address] Mitchell Zhong MD, PhD, [facility] CenterPOCT-GLUCOSE [id number] 11:18:12 Test Item Value Reference Range Interpretation Comments POC-GLUCOSE METER 102 mg/dL 70-110 : TESTED A T [facility] 6720 (BEAKER) (test code = [facility], 1538) [address]: City Councilman/Techni ilir ID = [id number] for Um eh, Akumbu POCT-GLUCOSE [id number] 07:46:23 Test Item Value Reference Range Interpretation Comments POC-GLUCOSE METER 88 mg/dL 70-110 : TESTED A T [facility] 6720 (BEAKER) (test code = [facility], 1538) [address]: City Councilman/Techni ilir ID = [id number] for Umeh , Akumbu BASIC METABOLIC [id number] 05:39:50 Test Item Value Reference Range Interpretation Comments SODIUM (BEAKER) 129 meq/L 136-145 L (test code = 381) POTASSIUM 4.5 meq/L 3.5-5.1 (BEAKER) (test code = 379) CHLORIDE (BEAKER) 99 meq/L 98-107 (test code = 382) CO2 [...] not appl icable for dialysis patien ts City Councilman ID - HENRY WCBC W/PLT COUNT & AUTO [id number] 05:12:45 Test Item Value Reference Range Interpretation Comments WHITE BLOOD CELL COUNT (BEAKER) 6.0 K/ L 3.5-10.5 (test code = 775) RED BLOOD CELL COUNT (BEAKER) 4.18 M/ L 4.63-6.08 L (test code = 761) HEMOGLOBIN (BEAKER) (test code = 13.0 GM/DL 13.7-17.5 L 410) HEMATOCRIT (BEAKER) (test code = 38.0 % 40.1-51.0 L 411) MEAN CORPUSCULAR VOLUME (BEAKER) 91 fL 79-92 (test code = 753) MEAN CORPUSCULAR HEMOGLOBIN 31.1 pg 25.7-32.2 (BEAKER) (test code = 751) MEAN CORPUSCULAR HEMOGLOBIN CONC 34.2 GM/DL 32.3-36.5 (BEAKER) (test code = 752) RED CELL DISTRIBUTION WIDTH 12.9 % 11.6-14.4 (BEAKER) (test code = 412) PLATELET COUNT (BEAKER) (test 137 K/CU MM 150-450 L code = 756) MEAN PLATELET VOLUME (BEAKER) 9.3 fL 9.4-12.4 L (test code = 754) NUCLEATED RED BLOOD CELLS 0 /100 WBC 0-0 (BEAKER) (test code = 413) NEUTROPHILS RELATIVE PERCENT 49 % (BEAKER) (test code = 429) LYMPHOCYTES RELATIVE PERCENT 35 % (BEAKER) (test code = 430) MONOCYTES RELATIVE PERCENT 12 % (BEAKER) (test code = 431) EOSINOPHILS RELATIVE PERCENT 4 % (BEAKER) (test code = 432) BASOPHILS RELATIVE PERCENT 1 % (BEAKER) (test code = 437) NEUTROPHILS ABSOLUTE COUNT 2.91 K/ L 1.78-5.38 (BEAKER) (test code = 670) LYMPHOCYTES ABSOLUTE COUNT 2.07 K/ L 1.32-3.57 (BEAKER) (test code = 414) MONOCYTES ABSOLUTE COUNT (BEAKER) 0.72 K/ L 0.30-0.82 (test code = 415) EOSINOPHILS ABSOLUTE COUNT 0.22 K/ L 0.04-0.54 (BEAKER) (test code = 416) BASOPHILS ABSOLUTE COUNT (BEAKER) 0.03 K/ L 0.01-0.08 (test code = 417) IMMATURE GRANULOCYTES-RELATIVE 0.50 % 0.00-1.00 PERCENT (BEAKER) (test code = 2801) POCT-GLUCOSE [id number] 21:27:14 Test Item Value Reference Range Interpretation Comments POC-GLUCOSE METER 100 mg/dL 70-110 : TESTED A T [facility] 6720 (BEAKER) (test code [facility], = 1538) [address]: City Councilman/Techni ilir ID = [id number] for Kike Ramos POCT-GLUCOSE [id number] 17:36:17 Test Item Value Reference Range Interpretation Comments POC-GLUCOSE METER 123 mg/dL 70-110 H : TESTED A T [facility] 6720 (BEAKER) (test code = [facility], 1538) [address]: City Councilman/Techni ilir ID = [id number] for Um eh, Akumbu VDRL, [id number] 15:16:52 Test Item Value Reference Range Interpretation Comments VDRL, CSF (test code = Nonreactive Nonreactive 5290-2) JUANA (test code = JUANA) TEST PERFORMED BY [facility] Lab Interpretation (test Normal code = 30509-3) [facility] CenterOligoclonal [id number] 14:08:48 Test Item Value Reference Interpretation Comments Range Oligoclonal ABSENT ABSENT No oligoclonal bands Bands, CSF (test were identi fied in this code = 4481542) patient's CS F when compared tothei r corresponding s armando sample. Oligocl onal bands are prese nt in the CSF of more hiren n 85% of patients withcl inically definite multip le sclerosis (MS). To distinguish betweenoligoclo nal bands in the CSF due to a peripheral gamm opathy and oligoclonal bands due to local produc tion in the [facility], serum and CSF should be testedsimultane ously. Oligoclonal ban ds can however be obse rved in a variety ofother diseases, e.g., subacute sclerosing panencephalitis , inflammatorypol yneuropat hy, [facility] lupus, and brain tumors and infa rctions. The clinicalsig nificance of a numerical band count, determin ed by isoelectric foc using,has not been defini tively defined. The da ta should be interpreted inconjunction w ith all pertinent clini dhaval and laboratory data for this patient. FINAL RESOLUTION (test code = 4188143) JUANA (test code = Performing Lab JUANA) E[facility] [employer] [facility] [address] [place] [address] Mitchell Zhong MD, PhD, [facility] WomenPOCT-GLUCOSE [id number] 11:49:53 Test Item Value Reference Range Interpretation Comments POC-GLUCOSE METER 116 mg/dL 70-110 H : TESTED A T [facility] 6720 (BEAKER) (test code = [facility] Tucker Blair [facility], 153) [address]: City Councilman/Techni ilir ID = [id number] for Um eh, Akumbu POCT-GLUCOSE [id number] 08:21:56 Test Item Value Reference Range Interpretation Comments POC-GLUCOSE METER 93 mg/dL 70-110 : TESTED A T [facility] 6720 (BEAKER) (test code = [facility] Tucker Blair [facility], 153) [address]: City Councilman/Techni ilir ID = [id number] for Umeh , Akumbu POCT-GLUCOSE [id number] 21:03:50 Test Item Value Reference Range Interpretation Comments POC-GLUCOSE METER 98 mg/dL 70-110 : TESTED A T [facility] 6720 (BEAKER) (test code = [facility] Tucker Blair [facility], 1538) [address]: City Councilman/Techni ilir ID = [id number] for Bailey Baez POCT-GLUCOSE [id number] 20:53:34 Test Item Value Reference Range Interpretation Comments POC-GLUCOSE METER 126 mg/dL 70-110 H : TESTED A T [facility] 6720 (BEAKER) (test code ROSARIO [facility], = 1538) 47147: City Councilman/Techni ilir ID = [id number] for Kike Ramos POCT-GLUCOSE [id number] 17:03:39 Test Item Value Reference Range Interpretation Comments POC-GLUCOSE METER 91 mg/dL 70-110 : TESTED A T [facility] 6720 (BEAKER) (test code = GREYSON Roca [facility], 1538) 30647: City Councilman/Techni ilir ID = [id number] for Bailey Baez SARS-COV2/RT-PCR ([facility])2022-07-06 12:07:55 Test Item Value Reference Range Interpretation Comments SARS-COV2/RT-PCR Negative Negative The SARS-Co V-2 target (test code = nucleic acids a re not 9199147) detected in thi s specimen. Negative result [...] revoked sooner. Fact Sheet for Healthcare Providers: https://www.[employer] m/Documents/Xpert%20Xpress%20SARS%20CoV-2/Fact%20Sheets/302-3802%86SVFX-JAK-1%20 HEALTHCARE%20PROVIDERS%20FACT%20SHEET.pdf Fact Sheet for Healthcare Patients: https://www.[employer]/Documents/Xpert%20Xp ress%20SARS%20CoV-2/Fact%20Sheets/302-3801%43XWCZ-MBI-4%20PATIENT%20FACT%20SHEET .pdfPOCT-GLUCOSE [id number] 08:58:44 Test Item Value Reference Range Interpretation Comments POC-GLUCOSE METER 77 mg/dL 70-110 : TESTED A T [facility] 6720 (BEAKER) (test code = [facility], 153) [address]100: City Councilman/Techni ilir ID = [id number] for Umeh , Akumbu POCT-GLUCOSE [id number] 22:01:05 Test Item Value Reference Range Interpretation Comments POC-GLUCOSE METER 128 mg/dL 70-110 H : TESTED A T [facility] 6720 (BEAKER) (test code = [facility], 153) 57956: City Councilman/Techni ilir ID = [id number] for Ty ler, Reshawn POCT-GLUCOSE [id number] 18:16:22 Test Item Value Reference Range Interpretation Comments POC-GLUCOSE METER 121 mg/dL 70-110 H : TESTED A T [facility] 6720 (BEAKER) (test code = [facility], 153) 88241: City Councilman/Techni ilir ID = [id number] for Um eh, Akumbu POCT-GLUCOSE [id number] 11:59:27 Test Item Value Reference Range Interpretation Comments POC-GLUCOSE METER 116 mg/dL 70-110 H : TESTED A T [facility] 6720 (BEAKER) (test code = [facility], 153) 53304: City Councilman/Techni ilir ID = [id number] for Um eh, Akumbu POCT-GLUCOSE [id number] 08:22:12 Test Item Value Reference Range Interpretation Comments POC-GLUCOSE METER 122 mg/dL 70-110 H : TESTED A T [facility] 6720 (BEAKER) (test code = [facility] Abelino [facility], 1538) 10655: City Councilman/Techni ilir ID = [id number] for DELIO BANUELOS POCT-GLUCOSE [id number] 21:35:02 Test Item Value Reference Range Interpretation Comments POC-GLUCOSE METER 100 mg/dL 70-110 : [facility] (test code = [facility], 1538) 48840: City Councilman/Techni ilir ID = [id number] for Pravin Santos Protein Electrophoresis, [id number] 18:01:28 Test Item Value Reference Range Interpretation Comments Scan Result (test code = 2510589) Protein Refer to individual electrophoresis, CSF Protein Electrophoresis, (test code = 3205733) CSF results. [facility] CenterPOCT-GLUCOSE [id number] 17:54:51 Test Item Value Reference Range Interpretation Comments POC-GLUCOSE METER 113 mg/dL 70-110 H : TESTED A T [facility] 6720 ([facility]) (test code = [facility], 1538) 14789: City Councilman/Techni ilir ID = [id number] for AZIZA US Angiotensin Converting Enzyme (CARROL)2022-07-04 13:59:36 Test Item Value Reference Range Interpretation Comments CARROL, Serum (test code = 6 U/L 9-67 L ) JUANA (test code = JUANA) Performing Lab EZ [facility] [address] [place] [address] Mitchell Zhong MD, PhD, YOLY Lab Interpretation (test Abnormal code = 15251-5) [facility] CenterIgG Index (CSF + Blood)2022-07-04 13:46:59 Test Item Value Reference Range Interpretation Comments Synthesis Rate IgG, 0.5 See_Comment [Automa chely CSF (test code = message] Th e ) system which generated this result transmit chely reference range : -9.9 TO +3.3 mg /24 h. The referenc e range was not u sed to interpret th is result as normal/abnormal . Igg Index,Csf (test 0.6 <0.66 code = 4388705) Albumin, CSF (test 19.1 mg/dL 8.0-42.0 code = 6357948) IgG, CSF (test code 2.1 mg/dL 0.8-7.7 = 6850684) IMMUNOGLOBULIN G, 585 mg/dL 600-1540 L SERUM (test code = 7219744) Albumin, Serum (test 3.2 g/dL 3.2-4.6 The Ig G Synthesis code = 0374761) rate, CSF an d IgG index, CSF are two formulae forestimating t he amount of IgG produced in the central nervous system. Evidenc eof increased synthesis of Ig G provides suppor t for the diagnos is of multiplescleros is. JUANA (test code = Performing Lab EZ JUANA) [facility] [address] [place] [address] Mitchell Zhong MD, PhD, YOLY Lab Interpretation Abnormal (test code = 44590-7) [facility] CenterAlbumin, [id number] 12:33:51 Test Item Value Reference Range Interpretation Comments Albumin, CSF (test 19.2 mg/dL 8.0-42.0 code = 9260783) JUANA (test code = Performing Lab EZ [facility] JUANA) [facility] [employer] [address] [place] [address] Mitchell Zhong MD, PhD, YOLY [facility] CenterPOCT-GLUCOSE [id number] 12:06:57 Test Item Value Reference Range Interpretation Comments POC-GLUCOSE METER 110 mg/dL 70-110 : TESTED A T [facility] 6720 (BEAKER) (test code = [facility], 153) [address]: City Councilman/Techni ilir ID = [id number] for AK INSONU, AZIZA POCT-GLUCOSE [id number] 08:50:56 Test Item Value Reference Range Interpretation Comments POC-GLUCOSE METER 90 mg/dL 70-110 : TESTED A T [facility] 6720 (BEAKER) (test code = [facility] Tucker Blair [facility], 153) [address]: City Councilman/Techni ilir ID = [id number] for ADRIANA CHEYANNE, AZIZA BASIC METABOLIC [id number] 05:06:42 Test Item Value Reference Range Interpretation Comments SODIUM (BEAKER) 131 meq/L 136-145 L (test code = 381) POTASSIUM 4.5 meq/L 3.5-5.1 (BEAKER) (test code = 379) CHLORIDE (BEAKER) 98 meq/L 98-107 (test code = 382) CO2 (BEAKER) 25 meq/L 22-29 (test code = 355) BLOOD UREA 13 mg/dL 7-21 NITROGEN (BEAKER) (test code = 354) CREATININE 0.73 mg/dL 0.57-1.25 (BEAKER) (test code = 358) GLUCOSE RANDOM 88 mg/dL 70-105 (BEAKER) (test code = 652) CALCIUM (BEAKER) 9.4 mg/dL 8.4-10.2 (test code = 697) EGFR (BEAKER) 103 Interpretatio n of eGFR (test code = [...] not appl icable for dialysis patien ts City Councilman ID - PIAYA LPOCT-GLUCOSE [id number] 20:41:02 Test Item Value Reference Range Interpretation Comments POC-GLUCOSE METER 122 mg/dL 70-110 H : TESTED A T [facility] 6720 (BEAKER) (test code [facility], = 1538) [address]: City Councilman/Techni iilr ID = [id number] for Kike Ramos POCT-GLUCOSE [id number] 18:02:41 Test Item Value Reference Range Interpretation Comments POC-GLUCOSE METER 121 mg/dL 70-110 H : TESTED A T [facility] 6720 (BEAKER) (test code = GREYSON Roca [facility], 1538) [address]: City Councilman/Techni ilir ID = [id number] for AZIZA US HTLV 1/2 [id number] 14:14:06 Test Item Value Reference Range Interpretation Comments Htlv1/2 Antibody Nonreactive Nonreactive (test code = 8911517) JUANA (test code = JUANA) Performing Lab 15 [employer] [address] [place] [address] Nathaniel Ceja MD, PhD [facility] CenterAquaporin-4 (AQP4)(NMO-IgG) Antibody with Reflex to Titer, [id number] 12:47:40 Test Item Value Reference Range Interpretation Comments AQUAPORIN 4 AB, NEGATIVE NEGATIVE This test w as CBA, CSF (test developed and its code = 1417701) analytical p erformance characteristics havebeen determ ined by [employer] [facility] .It has not been cleare d or approved by FDA . This assay has been validatedpursua nt to the CLIA regula tions and is used for clinical purpos es. AQUAPORIN 4 AB, TNP See_Comment Test not per formed. TITER, CSF Reflex testing not (test code = required since ) established cri teriawas not met. This t est was developed and i ts analytical perf ormance characteristics havebeen determ ined by [employer] [facility] .It has not been cleare d or approved by FDA . This assay has been validatedpursua nt to the CLIA regula tions and is used for clinical purpos es. [Automated mess age] The system which ge nerated this result tra nsmitted reference range : <1:10 titer. The refe rence range was not u sed to interpret this result as normal/abnor mal. JUANA (test code Performing Lab EZ = JUANA) [employer] [facility] [address] [place] [address] Mitchell Zhong MD, PhD, YOLY [facility] CenterPOCT-GLUCOSE [id number] 12:31:33 Test Item Value Reference Range Interpretation Comments POC-GLUCOSE METER 103 mg/dL 70-110 : TESTED A T [facility] 6720 ([employer]) (test code = [place], 1538) [address]: City Councilman/Techni ilir ID = [id number] for AZIZA US POCT-GLUCOSE [id number] 08:32:03 Test Item Value Reference Range Interpretation Comments POC-GLUCOSE METER 97 mg/dL 70-110 : TESTED A T [facility] 6720 ([employer]) (test code = GREYSON JUÁREZ, 1538) [address]: City Councilman/Techni ilir ID = [id number] for AZIZA LAZO BASIC METABOLIC [id number] 06:39:57 Test Item Value Reference Range Interpretation Comments SODIUM (BEAKER) 130 meq/L 136-145 L (test code = 381) POTASSIUM 4.7 meq/L 3.5-5.1 Specimen slight ly (BEAKER) (test hemolyzed code = 379) CHLORIDE (BEAKER) 100 meq/L 98-107 (test code = 382) CO2 (BEAKER) 26 meq/L 22-29 (test code = 355) BLOOD UREA 11 mg/dL 7-21 NITROGEN (BEAKER) (test code = 354) CREATININE 0.69 mg/dL 0.57-1.25 Specimen slight ly (BEAKER) (test hemolyzed code = 358) GLUCOSE RANDOM 92 mg/dL 70-105 (BEAKER) (test code = 652) CALCIUM (BEAKER) 9.2 mg/dL 8.4-10.2 (test code = 697) EGFR (BEAKER) 104 Interpretatio n of eGFR (test code = [...] not appl icable for dialysis patien ts City Councilman ID - PIAYA LPOCT-GLUCOSE [id number] 20:58:25 Test Item Value Reference Range Interpretation Comments POC-GLUCOSE METER 122 mg/dL 70-110 H : TESTED A T [facility] 6720 (BEAKER) (test code ROSARIO [facility], = 1538) [address]: City Councilman/Techni ilir ID = [id number] for Kike Ramos POCT-GLUCOSE [id number] 17:53:38 Test Item Value Reference Range Interpretation Comments POC-GLUCOSE METER 85 mg/dL 70-110 : TESTED A T [facility] 6720 (BEAKER) (test code = [facility], 153) [address]: City Councilman/Techni ilir ID = [id number] for WILL IAMS, TYNEKA CSF culture + gram [id number] 13:31:36 Test Item Value Reference Range Interpretation Comments Result (test code = 6463-4) No growth Gram Stain Result (test No organisms seen code = 1123) [facility] CenterCSF CULTURE + GRAM [id number] 13:31:36 Test Item Value Reference Range Interpretation Comments CULTURE (BEAKER) (test code No growth = 1095) GRAM STAIN RESULT (BEAKER) <1+ WBCs (test code = 1123) GRAM STAIN RESULT (BEAKER) No organisms seen (test code = 85447) POCT-GLUCOSE [id number] 11:52:03 Test Item Value Reference Range Interpretation Comments POC-GLUCOSE METER 114 mg/dL 70-110 H : TESTED A T [facility] 6720 (BEAKER) (test code = [facility], 153) [address]: City Councilman/Techni ilir ID = [id number] for [place] LLIAMS, TYNEKA POCT-GLUCOSE [id number] 08:01:37 Test Item Value Reference Range Interpretation Comments POC-GLUCOSE METER 115 mg/dL 70-110 H : TESTED A T [facility] 6720 (BEAKER) (test code = [facility], 153) 15458: City Councilman/Techni ilir ID = [id number] for [place] LLIAMS, TYNEKA POCT-GLUCOSE [id number] 21:43:01 Test Item Value Reference Range Interpretation Comments POC-GLUCOSE METER 105 mg/dL 70-110 : TESTED A T [facility] 6720 (BEAKER) (test code = [facility], 1538) [address]397: City Councilman/Techni ilir ID = [id number] for We brian, Poonam POCT-GLUCOSE [id number] 17:40:43 Test Item Value Reference Range Interpretation Comments POC-GLUCOSE METER 113 mg/dL 70-110 H : TESTED A T [facility] 6720 (BEAKER) (test code = [facility], 1538) [address]: City Councilman/Techni ilir ID = [id number] for Ke lly, Tami POCT-GLUCOSE [id number] 13:10:45 Test Item Value Reference Range Interpretation Comments POC-GLUCOSE METER 80 mg/dL 70-110 : TESTED A T [facility] 6720 (BEAKER) (test code = [facility], 153) 36851: City Councilman/Techni ilir ID = [id number] for MART ALFONZO, ANGELO POCT-GLUCOSE [id number] 08:22:15 Test Item Value Reference Range Interpretation Comments POC-GLUCOSE METER 98 mg/dL 70-110 : TESTED A T [facility] 6720 (BEAKER) (test code = [facility], 1538) 03576: City Councilman/Techni ilir ID = [id number] for MART ALFONZO, ANGELO POCT-GLUCOSE [id number] 08:21:39 Test Item Value Reference Range Interpretation Comments POC-GLUCOSE METER 116 mg/dL 70-110 H : TESTED A T [facility] 6720 (BEAKER) (test code = [facility], 1538) [address]999: City Councilman/Techni ilir ID = [id number] for MA RTINEZ, ANGELO POCT-GLUCOSE [id number] 22:14:07 Test Item Value Reference Range Interpretation Comments POC-GLUCOSE METER 125 mg/dL 70-110 H : TESTED A T [facility] 6720 (BEAKER) (test code = [facility], 1538) 965[address]: City Councilman/Techni ilir ID = [id number] for TAYA CAGE Paraneoplastic Panel, [id number] 18:00:30 Test Item Value Reference Range Interpretation Comments PARANEOPLASTIC AB CSF Refer to Individual AUTOVERIFICATION (test Test Results code = [id number]) [facility] [id number] 12:31:21 Test Item Value Reference Range Interpretation Comments POC-GLUCOSE METER 104 mg/dL 70-110 : TESTED A T [facility] 6720 (BEAKER) (test code = [facility], 153) 16146: City Councilman/Techni ilir ID = [id number] for MA RTINEZ, ANGELO POCT-GLUCOSE [id number] 12:31:20 Test Item Value Reference Range Interpretation Comments POC-GLUCOSE METER 89 mg/dL 70-110 : TESTED A T [facility] 6720 (BEAKER) (test code = [place] Roca [place], 1538) [address]: City Councilman/Techni ilir ID = [id number] for ANGELO ZAMARRIPA POCT-GLUCOSE [id number] 08:48:55 Test Item Value Reference Range Interpretation Comments POC-GLUCOSE METER 149 mg/dL 70-110 H : TESTED A T [facility] 6720 (BEAKER) (test code = GREYSON Roca [facility], 1538) [address]: City Councilman/Techni ilir ID = [id number] for CHERYL THOMPSON BASIC METABOLIC [id number] 05:43:18 Test Item Value Reference Range Interpretation Comments SODIUM (BEAKER) 131 meq/L 136-145 L (test code = 381) POTASSIUM 4.6 meq/L 3.5-5.1 (BEAKER) (test code = 379) CHLORIDE (BEAKER) 99 meq/L 98-107 (test code = 382) CO2 (BEAKER) 26 meq/L 22-29 (test code = 355) BLOOD UREA 14 mg/dL 7-21 NITROGEN (BEAKER) (test code = 354) CREATININE 0.68 mg/dL 0.57-1.25 (BEAKER) (test code = 358) GLUCOSE RANDOM 86 mg/dL 70-105 (BEAKER) (test code = 652) CALCIUM (BEAKER) 9.1 mg/dL 8.4-10.2 (test code = 697) EGFR (BEAKER) 105 Interpretatio n of eGFR (test code = [...] not appl icable for dialysis patien ts City Councilman ID - ADMINPOCT-GLUCOSE [id number] 22:14:54 Test Item Value Reference Range Interpretation Comments POC-GLUCOSE METER 105 mg/dL 70-110 : TESTED A T [facility] 6720 (BEAKER) (test code = [place], 1538) [address]: City Councilman/Techni ilir ID = [id number] for TAYA CAGE CSF cell count with [id number] 19:27:29 Test Item Value Reference Range Interpretation Comments Appearance (test code Clear Clear = 04220-8) Color (test code = Colorless Colorless 99472-1) RBCs (test code = 0 See_Comment [Automate d 792-2) message] The system which generated this result transmit chely reference range : 0 - 5 /cu mm. The reference range was not used to interpret this result as normal/abnormal . WBCs (test code = 1 See_Comment [Automate d 806-0) message] The system which generated this result transmit chely reference range : <=5 /cu mm. The reference range was not used to interpret this result as normal/abnormal . RBCs Fresh? (test Not Applicable code = 15929-7) # of Cells Diff'd 1 (test code = 53991-2) % Neutros (test code 0 % 0-5 = 19554-4) % Lymphs (test code = 100 % 40-80 H 55482-3) % Monos (test code = 0 % 15-45 L 439) % Eos (test code = 0 % See_Comment [Automat ed 360) message] The system which generated this result transmit chely reference range : <=0. The refere nce range was not u sed to interpret th is result as normal/abnormal . % Baso (test code = 0 % See_Comment [Automa chely 440) message] The system which generated this result transmit chely reference range : <=0. The refere nce range was not u sed to interpret th is result as normal/abnormal . Tube Number (test 1 code = 2677) Lab Interpretation Abnormal (test code = 25434-1) [facility] CenterCSF CELL COUNT [id number] 19:27:29 Test Item Value Reference Range Interpretation Comments APPEARANCE CSF Clear Clear (BEAKER) (test code = 407) COLOR CSF (BEAKER) Colorless Colorless (test code = 408) RBC CSF (BEAKER) 0 /cu mm 0-5 (test code = 409) WBC CSF (BEAKER) 1 /cu mm See_Comment [Automated (test code = 1020) message] The system which generated this result transmitted reference range : <=5. The refere nce range was not u sed to interpret th is result as normal/abnormal . RBCS FRESH (BEAKER) Not Applicable (test code = 1444) NUMBER OF CELLS 1 DIFF'D (BEAKER) (test code = 1591) NEUTROPHIL, CSF 0 % 0-5 (BEAKER) (test code = 324) LYMPHS CSF (BEAKER) 100 % 40-80 H (test code = 438) MONO/MACROPHAGE CSF 0 % 15-45 L (BEAKER) (test code = 439) EOSINOPHILS CSF 0 % See_Comment [Automated (BEAKER) (test code message] The system = 360) which generated this result transmitted reference range : <=0. The refere nce range was not u sed to interpret th is result as normal/abnormal . BASO CSF (BEAKER) 0 % See_Comment [Automate d (test code = 440) message] T he system which generated this result transmitted reference range : <=0. The refere nce range was not u sed to interpret th is result as normal/abnormal . TUBE NUMBER CSF 1 (BEAKER) (test code = 2678) POCT-GLUCOSE [id number] 19:00:46 Test Item Value Reference Range Interpretation Comments POC-GLUCOSE METER 133 mg/dL 70-110 H : TESTED A T [facility] 6720 (BEAKER) (test code = [facility] Tucker Blair [facility], 1538) [address]: City Councilman/Techni ilir ID = [id number] for NAVID ELIEZ, ANGELO POCT-GLUCOSE [id number] 19:00:39 Test Item Value Reference Range Interpretation Comments POC-GLUCOSE METER 97 mg/dL 70-110 : TESTED A T [facility] 6720 (BEAKER) (test code = [facility] Tucker Blair [facility], 1538) [address]: City Councilman/Techni ilir ID = [id number] for RONIT ALFONZO, ANGELO Glucose, [id number] 18:01:05 Test Item Value Reference Range Interpretation Comments Glucose, CSF (test code = 49 mg/dL 40-70 2342-4) JUANA (test code = JUANA) City Councilman ID - ADMIN Lab Interpretation (test Normal code = 02085-5) [facility] CenterProtein, [id number] 18:01:05 Test Item Value Reference Range Interpretation Comments Protein, CSF (test code = 33 mg/dL 15-45 2880-3) JUANA (test code = JUANA) City Councilman ID - ADMIN Lab Interpretation (test Normal code = 14301-1) [facility] CenterGLUCOSE, [id number] 18:01:05 Test Item Value Reference Range Interpretation Comments GLUCOSE CSF (BEAKER) (test code = 49 mg/dL 40-70 406) City Councilman ID - ADMINPROTEIN, [id number] 18:01:05 Test Item Value Reference Range Interpretation Comments PROTEIN CSF (BEAKER) (test code = 33 mg/dL 15-45 378) City Councilman ID - ADMINSARS-COV2/RT-PCR ([facility])2022-06-29 18:00:56 Test Item Value Reference Range Interpretation Comments SARS-COV2/RT-PCR Negative Negative The SARS-Co V-2 target (test code = nucleic acids a re not 5930839) detected in thi s specimen. Negative result [...] revoked sooner. Fact Sheet for Healthcare Providers: https://www.cepheid.co m/Documents/Xpert%20Xpress%20SARS%20CoV-2/Fact%20Sheets/302-3802%29EOEQ-PAX-1%20 HEALTHCARE%20PROVIDERS%20FACT%20SHEET.pdf Fact Sheet for Healthcare Patients: https://www.Quipper/Documents/Xpert%20Xp ress%20SARS%20CoV-2/Fact%20Sheets/302-3801%03WMRT-HDR-9%20PATIENT%20FACT%20SHEET .pdfBASIC METABOLIC [id number] 03:47:07 Test Item Value Reference Range Interpretation Comments SODIUM (BEAKER) 129 meq/L 136-145 L (test code = 381) POTASSIUM 4.8 meq/L 3.5-5.1 (BEAKER) (test code = 379) CHLORIDE (BEAKER) 99 meq/L 98-107 (test code = 382) CO2 (BEAKER) 25 meq/L 22-29 (test code = 355) BLOOD UREA 17 mg/dL 7-21 NITROGEN (BEAKER) (test code = 354) CREATININE 0.76 mg/dL 0.57-1.25 (BEAKER) (test code = 358) GLUCOSE RANDOM 88 mg/dL 70-105 (BEAKER) (test code = 652) CALCIUM (BEAKER) 8.7 mg/dL 8.4-10.2 (test code = 697) EGFR [...] not appl icable for dialysis patien ts City Councilman ID - PIAYA LCBC W/PLT COUNT & AUTO [id number] 03:27:59 Test Item Value Reference Range Interpretation Comments WHITE BLOOD CELL COUNT (BEAKER) 11.3 K/ L 3.5-10.5 H (test code = 775) RED BLOOD CELL COUNT (BEAKER) 4.49 M/ L 4.63-6.08 L (test code = 761) HEMOGLOBIN (BEAKER) (test code = 14.0 GM/DL 13.7-17.5 410) HEMATOCRIT (BEAKER) (test code = 41.2 % 40.1-51.0 411) MEAN CORPUSCULAR VOLUME (BEAKER) 92 fL 79-92 (test code = 753) MEAN CORPUSCULAR HEMOGLOBIN 31.2 pg 25.7-32.2 (BEAKER) (test code = 751) MEAN CORPUSCULAR HEMOGLOBIN CONC 34.0 GM/DL 32.3-36.5 (BEAKER) (test code = 752) RED CELL DISTRIBUTION WIDTH 12.8 % 11.6-14.4 (BEAKER) (test code = 412) PLATELET COUNT (BEAKER) (test 175 K/CU MM 150-450 code = 756) MEAN PLATELET VOLUME (BEAKER) 8.9 fL 9.4-12.4 L (test code = 754) NUCLEATED RED BLOOD CELLS 0 /100 WBC 0-0 (BEAKER) (test code = 413) NEUTROPHILS RELATIVE PERCENT 64 % (BEAKER) (test code = 429) LYMPHOCYTES RELATIVE PERCENT 24 % (BEAKER) (test code = 430) MONOCYTES RELATIVE PERCENT 8 % (BEAKER) (test code = 431) EOSINOPHILS RELATIVE PERCENT 2 % (BEAKER) (test code = 432) BASOPHILS RELATIVE PERCENT 0 % (BEAKER) (test code = 437) NEUTROPHILS ABSOLUTE COUNT 7.26 K/ L 1.78-5.38 H (BEAKER) (test code = 670) LYMPHOCYTES ABSOLUTE COUNT 2.69 K/ L 1.32-3.57 (BEAKER) (test code = 414) MONOCYTES ABSOLUTE COUNT (BEAKER) 0.91 K/ L 0.30-0.82 H (test code = 415) EOSINOPHILS ABSOLUTE COUNT 0.27 K/ L 0.04-0.54 (BEAKER) (test code = 416) BASOPHILS ABSOLUTE COUNT (BEAKER) 0.04 K/ L 0.01-0.08 (test code = 417) IMMATURE GRANULOCYTES-RELATIVE 0.90 % 0.00-1.00 PERCENT (BEAKER) (test code = 2801) POCT-GLUCOSE [id number] 22:06:55 Test Item Value Reference Range Interpretation Comments POC-GLUCOSE METER 118 mg/dL 70-110 H : TESTED A T [facility] 6720 (BEAKER) (test code = [facility]) [address]: City Councilman/Techni ilir ID = [id number] for Poonam Alfred POCT-GLUCOSE [id number] 12:59:43 Test Item Value Reference Range Interpretation Comments POC-GLUCOSE METER 113 mg/dL 70-110 H : TESTED A T [facility] 6720 (BEAKER) (test code = [facility], [facility]) 97862: City Councilman/Techni ilir ID = [id number] for RO DGERS, JAMECA POCT-GLUCOSE [id number] 08:25:18 Test Item Value Reference Range Interpretation Comments POC-GLUCOSE METER 91 mg/dL 70-110 : TESTED A T [facility] 6720 (BEAKER) (test code = [facility], [facility]) 30826: City Councilman/Techni ilir ID = [id number] for RODG ERS, JAMECA POCT-GLUCOSE [id number] 01:54:22 Test Item Value Reference Range Interpretation Comments POC-GLUCOSE METER 114 mg/dL 70-110 H : TESTED A T [facility] 6720 (BEAKER) (test code = [facility], [facility]) 81875: City Councilman/Techni ilir ID = [id number] for DIANA HNSON JOSE CTTA POCT-GLUCOSE [id number] 16:59:04 Test Item Value Reference Range Interpretation Comments POC-GLUCOSE METER 122 mg/dL 70-110 H : TESTED A T [facility] 6720 (BEAKER) (test code = [facility], [facility]) 28709: City Councilman/Techni ilir ID = [id number] for RO DGERS, JAMECA POCT-GLUCOSE [id number] 12:45:25 Test Item Value Reference Range Interpretation Comments POC-GLUCOSE METER 145 mg/dL 70-110 H : TESTED A T [facility] 6720 (BEAKER) (test code = [facility], [facility]) 22918: City Councilman/Techni ilir ID = [id number] for RO DGERS, JAMECA POCT-GLUCOSE [id number] 00:05:46 Test Item Value Reference Range Interpretation Comments POC-GLUCOSE METER 171 mg/dL 70-110 H : TESTED A T [facility] 6720 (BEAKER) (test code = [place], 1538) 990[address]: City Councilman/Techni ilir ID = [id number] for KRISTINE WALTER BASIC METABOLIC [id number] 06:59:12 Test Item Value Reference Range Interpretation Comments SODIUM (BEAKER) 131 meq/L 136-145 L (test code = 381) POTASSIUM 4.2 meq/L 3.5-5.1 (BEAKER) (test code = 379) CHLORIDE (BEAKER) 101 meq/L 98-107 (test code = 382) CO2 (BEAKER) 22 meq/L 22-29 (test code = 355) BLOOD UREA 16 mg/dL 7-21 NITROGEN (BEAKER) (test code = 354) CREATININE 0.77 mg/dL 0.57-1.25 (BEAKER) (test code = 358) GLUCOSE RANDOM 134 mg/dL 70-105 H (BEAKER) (test code = 652) CALCIUM (BEAKER) [...] not appl icable for dialysis patien ts City Councilman ID - EVELIA [id number] 06:59:12 Test Item Value Reference Range Interpretation Comments MAGNESIUM (BEAKER) (test code = 1.7 mg/dL 1.6-2.6 627) City Councilman ID - EVELIA LCBC W/PLT COUNT & AUTO [id number] 06:42:11 Test Item Value Reference Range Interpretation Comments WHITE BLOOD CELL COUNT (BEAKER) 13.3 K/ L 3.5-10.5 H (test code = 775) RED BLOOD CELL COUNT (BEAKER) 4.56 M/ L 4.63-6.08 L (test code = 761) HEMOGLOBIN (BEAKER) (test code = 14.3 GM/DL 13.7-17.5 410) HEMATOCRIT (BEAKER) (test code = 40.8 % 40.1-51.0 411) MEAN CORPUSCULAR VOLUME (BEAKER) 90 fL 79-92 (test code = 753) MEAN CORPUSCULAR HEMOGLOBIN 31.4 pg 25.7-32.2 (BEAKER) (test code = 751) MEAN CORPUSCULAR HEMOGLOBIN CONC 35.0 GM/DL 32.3-36.5 (BEAKER) (test code = 752) RED CELL DISTRIBUTION WIDTH 12.2 % 11.6-14.4 (BEAKER) (test code = 412) PLATELET COUNT (BEAKER) (test 206 K/CU MM 150-450 code = 756) MEAN PLATELET VOLUME (BEAKER) 9.4 fL 9.4-12.4 (test code = 754) NUCLEATED RED BLOOD CELLS 0 /100 WBC 0-0 (BEAKER) (test code = 413) NEUTROPHILS RELATIVE PERCENT 88 % (BEAKER) (test code = 429) LYMPHOCYTES RELATIVE PERCENT 10 % (BEAKER) (test code = 430) MONOCYTES RELATIVE PERCENT 2 % (BEAKER) (test code = 431) EOSINOPHILS RELATIVE PERCENT 0 % (BEAKER) (test code = 432) BASOPHILS RELATIVE PERCENT 0 % (BEAKER) (test code = 437) NEUTROPHILS ABSOLUTE COUNT 11.62 K/ L 1.78-5.38 H (BEAKER) (test code = 670) LYMPHOCYTES ABSOLUTE COUNT 1.33 K/ L 1.32-3.57 (BEAKER) (test code = 414) MONOCYTES ABSOLUTE COUNT (BEAKER) 0.23 K/ L 0.30-0.82 L (test code = 415) EOSINOPHILS ABSOLUTE COUNT 0.00 K/ L 0.04-0.54 L (BEAKER) (test code = 416) BASOPHILS ABSOLUTE COUNT (BEAKER) 0.02 K/ L 0.01-0.08 (test code = 417) IMMATURE GRANULOCYTES-RELATIVE 0.50 % 0.00-1.00 PERCENT (BEAKER) (test code = 280) 2D Echo W/Doppler(CW/PW/Color)2022-06-25 15:54:03Ejection FractionSLEH ECHO HEARTLAB MKCKESSAPRIL CPACSCHI [facility] WomenMR, SPINE, LUMBAR, WITH 2022-06-24 14:06:00Unlisted Reason for Exam - Click Yes and Enter Reason Below->NoCHI [facility]ULL[facility]DA : 1960 Sex: MFINAL REPORT MR, SPINE, THORACIC, WITH \\T\\ WITHOUT CONTRAST, MR, SPINE, LUMBAR, WITH \\T\\WITHOUT CONTRAST INDICATION: Myelopathy, acute or progressive TECHNIQUE: Multiplanar, multisequence unenhanced MR images of the entire spine were obtained. COMPARISON: None FINDINGS: Thoracic spine:Thevertebral bodies have normal height, alignment, and signal intensity. Moderate spondylosis and facetarthropathy are present within the spine. Mild T2 hyperintensity seen surrounding the central canal and in the posterior thoracic. This may represent flow-related artifact. No associated enhancement.Persistent T2 hyperintensity in the posterior cervical spinal cord on the large [id number] images There is no significant foraminal or spinal canal stenosis. Paraspinal soft tissues are unremarkable. Lumbar spine:The vertebral bodies have normal height, alignment, and signal intensity. Small vertebralhemangioma at the L2 vertebral body. Mild to moderate spondylosis and facet arthropathy are present within the spine. Bone marrow edema at the anterior superior L1, L2, and L3 vertebral bodies, favoredto be degenerative in nature. Mild associated enhancement in the anterior superior L3 vertebral body.Small STIR hyperintense lesion in the L3 vertebral body is nonspecific, and may represent an atypical hemangioma. The conus medullaris terminates at the L1 level. The descending nerve roots of the cauda equina are normal. There is no significant foraminal or spinal canal stenosis. Paraspinal soft tissue stuctures are unremarkable. Multiple T2 hyperintense renal cysts bilaterally. L1/L2: Symmetric disc bulge without significant spinal canal or neural foraminal stenosis.L2/L3: Symmetric disc bulge without significant spinal canal or neural foraminal stenosis.L3/L4: No significant canal or foraminal na rrowing.L4/L5: Symmetric disc bulge without significant spinal canal or neural foraminal stenosis. Facet arthropathy with synovitis at the right L4-5 facets. L5/S1: No significant canal or foraminal narrowing. IMPRESSION: 1.No definite signal abnormality in the thoracic cord. Subtle T2 hyperintensity in the posterior thoracic cord is favored to represent flow-related artifact. No associated enhancement. 2.Persistent signal abnormalities in imaged cervical cord.3.Bone marrow edema, favored to be degenerative in nature, at the anterior superior L1-L3 vertebral bodies. Signed: Maddie Mcfarland MDR[facility]ort Verified Date/Time: 06/24/2022 14:06:49 MR, SPINE, THORACIC, [id number] 14:06:00Unlisted Reason for Exam - Click Yes and Enter Reason Below->No [facility] 1960 Sex: MFINAL REPORT MR, SPINE, THORACIC, WITH \\T\\ WITHOUT CONTRAST, MR, SPINE, LUMBAR, WITH \\T\\WITHOUT CONTRAST INDICATION: Myelopathy, acute or progressive TECHNIQUE: Multiplanar, multisequence unenhanced MR images of the entire spine were obtained. COMPARISON: None FINDINGS: Thoracic spine:Thevertebral bodies have normal height, alignment, and signal intensity. Moderate spondylosis and facetarthropathy are present within the spine. Mild T2 hyperintensity seen surrounding the central canal and in the posterior thoracic. This may represent flow-related artifact. No associated enhancement.Persistent T2 hyperintensity in the posterior cervical spinal cord on the large [id number] images There is no significant foraminal or spinal canal stenosis. Paraspinal soft tissues are unremarkable. Lumbar spine:The vertebral bodies have normal height, alignment, and signal intensity. Small vertebralhemangioma at the L2 vertebral body. Mild to moderate spondylosis and facet arthropathy are present within the spine. Bone marrow edema at the anterior superior L1, L2, and L3 vertebral bodies, favoredto be degenerative in nature. Mild associated enhancement in the anterior superior L3 vertebral body.Small STIR hyperintense lesion in the L3 vertebral body is nonspecific, and may represent an atypical hemangioma. The conus medullaris terminates at the L1 level. The descending nerve roots of the cauda equina are normal. There is no significant foraminal or spinal canal stenosis. Paraspinal soft tissue stuctures are unremarkable. Multiple T2 hyperintense renal cysts bilaterally. L1/L2: Symmetric disc bulge without significant spinal canal or neural foraminal stenosis.L2/L3: Symmetric disc bulge without significant spinal canal or neural foraminal stenosis.L3/L4: No significant canal or foraminal na rrowing.L4/L5: Symmetric disc bulge without significant spinal canal or neural foraminal stenosis. Facet arthropathy with synovitis at the right L4-5 facets. L5/S1: No significant canal or foraminal narrowing. IMPRESSION: 1.No definite signal abnormality in the thoracic cord. Subtle T2 hyperintensity in the posterior thoracic cord is favored to represent flow-related artifact. No associated enhancement. 2.Persistent signal abnormalities in imaged cervical cord.3.Bone marrow edema, favored to be degenerative in nature, at the anterior superior L1-L3 vertebral bodies. Signed: [facility]farland [facility] Verified Date/Time: 06/24/2022 14:06:49 [facility] [id number] 14:36:00MRB with subacute infarctsUnlisted Reason for Exam - Click Yes and Enter Reason Below->No [facility] : 1960 Sex: MFINAL REPORT CT, CTANGIO BRAIN, CT, CAROTID, ANGIOBRAIN CT WITHOUT CONTRAST INDICATION: Stroke, follow up COMPARISON: None TECHNIQUE:Rapid acquisition spiral images were obtained between the aortic arch and the cranial vertex during intravenous contrast infusion to reconstruct axial imagesand angiographic 3D maximum intensity projections (MIP). 3-D volumetric reformatted images were created at a dedicated workstation. Precontrast images of the brain were also obtained. Stenosis evaluation reported in compliance with NASCET criteria. DOSE REDUCTION: Dose modulation, iterative reconstruction, and/or weight-based adjustment of the mA/kV was utilized to reduce the radiation dose to as lowas reasonably achievable. FINDINGS:CT BRAIN:Cerebral parenchyma: Mild to moderate generalized volumeloss and chronic small vessel ischemic changes in the supratentorial white matter.Midline structures: Normally positioned.Cerebellum and brainstem: Normal.Ventricles: Normal volume.Extra- axial spaces: Unremarkable.Calvarium and skull base: Intact.Paranasal sinuses and mastoid air cells: Visible chambers are clear.Orbital contents: Included portions unremarkable. CTA BRAIN:Internal carotid arteries: Petrous, cavernous and supraclinoid portions patent. Scattered atherosclerotic vascular calcifications. Middle cerebral arteries: Patent to distal branches.Anterior cerebral arteries: Patent. No A-comm aneurysm.Basilar system: Patent vertebrobasilar system. Mild narrowing at the right vertebral artery V4 segment secondary to calcified plaque.Posterior cerebral arteries:Patent P1 and P2 segments. Venousopacification: Major dural sinuses unremarkable for bolus timing.Additional findings: None. CTA NECK:Common carotid arteries: The common carotid arteries are normal in size. Bifurcations: No flow-limiting stenosis. Scattered atherosclerotic vascular calcifications. less than 50% atherosclerotic narrowing by NASCET criteriaCervical internal carotid arteries: No flow limiting stenosis.Vertebral arteries: The right vertebral artery is dominant. The left vertebral artery originates from the aortic arch.Arch anatomy: Conventional. Nonvascular findings:Osseous structures: No acute osseous abnormality. Intact calvarium and skull base. Moderate spondylosis and facet arthropathy are present within the spine.Cervical soft tissues: No adenopathy. Patent aerodigestive tract.Lung apices: No apical consolidation or pneumothorax. Pulmonary emphysematous changes. IMPRESSION: CTA head and neck:No acute vascular a bnormality in the head and neck. Signed: Maddie Mcfarland MDR[facility] Verified Date/Time: 06/23/2022 14:36:05 CT, CAROTID, [id number] 14:36:00MRB with subacute infarctsUnlisted Reason for Exam - Click Yes and Enter Reason Below->No [facility] 1960 Sex: MFINAL REPORT CT, CTANGIO BRAIN, CT, CAROTID, ANGIOBRAIN CT WITHOUT CONTRAST INDICATION: Stroke, follow up COMPARISON: None TECHNIQUE:Rapid acquisition spiral images were obtained between the aortic arch and the cranial vertex during intravenous contrast infusion to reconstruct axial imagesand angiographic 3D maximum intensity projections (MIP). 3-D volumetric reformatted images were created at a dedicated workstation. Precontrast images of the brain were also obtained. Stenosis evaluation reported in compliance with NASCET criteria. DOSE REDUCTION: Dose modulation, iterative reconstruction, and/or weight-based adjustment of the mA/kV was utilized to reduce the radiation dose to as lowas reasonably achievable. FINDINGS:CT BRAIN:Cerebral parenchyma: Mild to moderate generalized volumeloss and chronic small vessel ischemic changes in the supratentorial white matter.Midline structures: Normally positioned.Cerebellum and brainstem: Normal.Ventricles: Normal volume.Extra- axial spaces: Unremarkable.Calvarium and skull base: Intact.Paranasal sinuses and mastoid air cells: Visible chambers are clear.Orbital contents: Included portions unremarkable. CTA BRAIN:Internal carotid arteries: Petrous, cavernous and supraclinoid portions patent. Scattered atherosclerotic vascular calcifications. Middle cerebral arteries: Patent to distal branches.Anterior cerebral arteries: Patent. No A-comm aneurysm.Basilar system: Patent vertebrobasilar system. Mild narrowing at the right vertebral artery V4 segment secondary to calcified plaque.Posterior cerebral arteries:Patent P1 and P2 segments. Venousopacification: Major dural sinuses unremarkable for bolus timing.Additional findings: None. CTA NECK:Common carotid arteries: The common carotid arteries are normal in size. Bifurcations: No flow-limiting stenosis. Scattered atherosclerotic vascular calcifications. less than 50% atherosclerotic narrowing by NASCET criteriaCervical internal carotid arteries: No flow limiting stenosis.Vertebral arteries: The right vertebral artery is dominant. The left vertebral artery originates from the aortic arch.Arch anatomy: Conventional. Nonvascular findings:Osseous structures: No acute osseous abnormality. Intact calvarium and skull base. Moderate spondylosis and facet arthropathy are present within the spine.Cervical soft tissues: No adenopathy. Patent aerodigestive tract.Lung apices: No apical consolidation or pneumothorax. Pulmonary emphysematous changes. IMPRESSION: CTA head and neck:No acute vascular a bnormality in the head and neck. Signed: Maddie Mcfarland [facility] Verified Date/Time: 06/23/2022 14:36:05 MR, SPINE, CERVICAL, [id number] 13:12:00Unlisted Reason for Exam - Click Yes and Enter Reason Below->No [facility] 1960 Sex: MFINAL REPORT MRI cervical spine with and without contrast. CLINICAL HISTORY: Myelopathy,acute or progressive TECHNIQUE: Multiplanar, multisequence of the cervical spine was performed before administration of intravenous contrast; postcontrast sagittal and axial T1 sequences were also performed. COMPARISON: None available. FINDINGS: Moderate spondylosis and facet arthropathy are present within the spine. T2/STIR hyperintensity is is seen within the posterior cervical cord extending from the C1-C2 level to the C6-C7 level. No associated enhancement. C2-C3: No significant spinal canal or neural foraminal stenosis C3-C4: Posterior disc osteophyte complex with moderate to severe left neural foraminal stenosis and mild spinal canal stenosis C4-C5: Posterior disc osteophyte complex with moderate spinal canal stenosis and moderate bilateral neural foraminal stenosis C5-C6: Posterior disc osteophyte complex with severe left and moderate right neural foraminal stenosis C6-C7: No significant spinal canal or neural foraminal stenosis C7-T1: No significant spinal canal or neural foraminal stenosis IMPRESSION: Long segment signal abnormality in the posterior cervical spinal cord, extending from C1 through C7. Differential diagnosis includes metabolic abnormalities such as subacute combined degeneration, and demyelinating diseases such as transverse myelitis and multiple sclerosis. No associated enhancement. Signed: Maddie Mcfarland [facility] Verified Date/Time: 06/23/2022 13:12:55 [id number] 12:52:03 Test Item Value Reference Range Interpretation Comments RPR SCREEN (SANAM) (test code = Nonreactive Nonreactive 420) HEMOGLOBIN [id number] 12:40:19 Test Item Value Reference Range Interpretation Comments HEMOGLOBIN A1C 5.5 % See_Comment [Automated m essage] ELECTROPHORESIS (SANAM) The system which (test code = 3811) generated this result transmitted ref erence range: <=5.6%. The reference range was not used to int erpret this result as normal/abnormal . "The A1c is measured using a [facility]-certified method. HbA1c value equal to or greater than 6.5% as thediagnosis cutoff for diabetes. An HbA1c value of 5.7- 6.4% indicates increased risk for diabetes (prediabetes)."City Councilman ID - ADM TSH/FREE T4 IF [id number] 12:29:54 Test Item Value Reference Range Interpretation Comments THYROID STIMULATING HORMONE 1.690 uIU/mL 0.350-4.940 (BEAKER) (test code = 772) City Councilman ID - MARCOLIPID [id number] 12:03:12 Test Item Value Reference Range Interpretation Comments TRIGLYCERIDES (HerotainmentAKER) (test code = 37 mg/dL 540) CHOLESTEROL (HerotainmentAKER) (test code = 102 mg/dL 631) HDL CHOLESTEROL (HerotainmentAKER) (test code 43 mg/dL = 976) LDL CHOLESTEROL CALCULATED (HerotainmentAKER) 52 mg/dL (test code = 633) Triglyceride Reference Range: Low Risk <150 Borderline 150-199 High Risk 200- 499 Very High Risk >=500Cholesterol Reference Range: Low Risk <200 Borderline 200-239 High Risk >240HDL Cholesterol Reference Range: Low Risk >=60 High Risk <40LDL Cholesterol Reference Range: Optimal <100 Near Optimal 100-129 Borderline 130-159 High 160-189 Very High >=190 City Councilman ID - WILLIAM, BRAIN, [id number] 09:35:00Reason for exam:->Biletral LE weakness What is the patient's sedation requirement?->No Sedation [facility] 1960 Sex: MFINAL REPORT MR, BRAIN, WITH \\T\\ WITHOUT CONTRAST INDICATION: Neuro deficit, acute, stroke suspectedBiletral LE weakness Technique: Multiplanar, multisequence MRI images of the brain were obtained before and after demonstration of intravenous contrast. COMPARISON: None FINDINGS:Brain parenc hyma is normal in morphology. Midline structures are normally developed. Focal DWI hyperintensity with mild ADC hypointensity in the right frontal lobe middle frontal gyrus. Small foci susceptibility are seen in the right middle cerebellar peduncle, left temporal occipital region, right thalamus, right ruiz radiata Multiple (greater than 50)T2/FLAIR hyperintense foci within the periventricular white matter including in a perivenular distribution Chronic lacunar infarct in the leanen, right thalamus,and right cerebellar hemisphere. No hydrocephalus. Orbits are within normal limits. No obstructive paranasal sinus disease. Additional findings: None. IMPRESSION:1.No acute infarct or acute intracranial hemorrhage.2.Numerous (greater than 50) FLAIR hyperintensities in the supratentorial white matter, representing demyelinating disease and/or chronic small vessel ischemic changes. No enhancing lesionsto suggest active demyelination.3.Focal subacute infarct in the right frontal lobe. No hemorrhagic conversion.4.Scattered chronic microhemorrhages, which may represent sequela of hypertension. Signed: Maddie Mcfarland [facility] Verified Date/Time: 06/23/2022 09:35:32 BASIC METABOLIC [id number] 04:52:25 Test Item Value Reference Range Interpretation Comments SODIUM (BEAKER) 130 meq/L 136-145 L (test code = 381) POTASSIUM 4.9 meq/L 3.5-5.1 (BEAKER) (test code = 379) CHLORIDE (BEAKER) 101 meq/L 98-107 (test code = 382) CO2 (BEAKER) 22 meq/L 22-29 (test code = 355) BLOOD UREA 18 mg/dL 7-21 NITROGEN (BEAKER) (test code = 354) CREATININE 0.75 mg/dL 0.57-1.25 (BEAKER) (test code = 358) GLUCOSE RANDOM 132 mg/dL 70-105 H (BEAKER) (test code = 652) CALCIUM (BEAKER) 9.6 mg/dL 8.4-10.2 (test code = 697) EGFR (SANAM) 102 Interpretatio n of eGFR (test code [...] not appl icable for dialysis patien ts City Councilman ID - MARCOSARS-COV2/RT-PCR ([facility])2022-06-22 10:57:50 Test Item Value Reference Range Interpretation Comments SARS-COV2/RT-PCR Negative Negative The SARS-Co V-2 target (test code = nucleic acids a re not 1677059) detected in thi s specimen. Negative result [...] revoked sooner. Fact Sheet for Healthcare Providers: https://www.cepheid.co m/Documents/Xpert%20Xpress%20SARS%20CoV-2/Fact%20Sheets/302-3802%95QFUX-ICA-3%20 HEALTHCARE%20PROVIDERS%20FACT%20SHEET.pdf Fact Sheet for Healthcare Patients: https://www.Quipper/Documents/Xpert%20Xp ress%20SARS%20CoV-2/Fact%20Sheets/302-3801%48OZVX-UVM-1%20PATIENT%20FACT%20SHEET .pdfBASIC METABOLIC [id number] 06:52:29 Test Item Value Reference Range Interpretation Comments SODIUM (BEAKER) 130 meq/L 136-145 L (test code = 381) POTASSIUM 4.4 meq/L 3.5-5.1 (BEAKER) (test code = 379) CHLORIDE (BEAKER) 98 meq/L 98-107 (test code = 382) CO2 (BEAKER) 25 meq/L 22-29 (test code = 355) BLOOD [...] not appl icable for dialysis patien ts City Councilman ID - PIAYA LBASIC METABOLIC [id number] 02:11:54 Test Item Value Reference Range Interpretation Comments SODIUM (BEAKER) 128 meq/L 136-145 L (test code = 381) POTASSIUM 4.9 meq/L 3.5-5.1 Specimen modera tely (BEAKER) (test hemolyzed code = 379) CHLORIDE (BEAKER) 100 meq/L 98-107 (test code = 382) CO2 (BEAKER) 20 meq/L 22-29 L (test code = 355) BLOOD UREA 18 mg/dL 7-21 NITROGEN (BEAKER) (test code = 354) CREATININE 0.72 mg/dL 0.57-1.25 Specimen modera tely (BEAKER) (test hemolyzed code = 358) GLUCOSE RANDOM 101 mg/dL 70-105 (BEAKER) (test code = 652) CALCIUM (BEAKER) 9.1 mg/dL 8.4-10.2 (test code = 697) EGFR (BEAKER) 103 Interpretatio n of eGFR (test code = [...] not appl icable for dialysis patien ts City Councilman ID - ALEKSEY MVITAMIN [id number] 17:51:59 Test Item Value Reference Range Interpretation Comments VITAMIN B12 (BEAKER) (test code = 480 pg/mL 213-909 304) City Councilman ID - BSRAD, ANKLE, MIN 3 VIEWS, [id number] 15:52:00Reason for exam:->hx of falls and severe ankle painShould this be performed at the bedside?->[facility] : 1960 Sex: MFINAL REPORT Clinical history: hx of falls and severe ankle pain TECHNIQUE: 3 views of the bilateral ankles COMPARISON: None IMPRESSION: Both ankles are intact without fracture or dislocation. Signed: Beth Stark Verified Date/Time: 06/19/2022 15:52:39 Reading Location: [address] Reading Room RAD, ANKLE, MIN 3 VIEWS, [id number] 15:52:00Reason for exam:->hx of falls and severe bilateral ankle painShould this be performed at the bedside?->Yes [facility] : 1960 Sex: MFINAL REPORT Clinical history: hx of falls and severe ankle pain TECHNIQUE: 3 views of the bilateral ankles COMPARISON: None IMPRESSION: Both ankles are intact without fracture or dislocation. Signed: Beth Stark Verified Date/Time: 06/19/2022 15:52:39 Reading Location: [address] Reading Room URIC [id number] 12:29:59 Test Item Value Reference Range Interpretation Comments URIC ACID (BEAKER) (test code = 6.1 mg/dL 2.6-7.2 773) City Councilman ID - MARCOPROTHROMBIN [id number] 06:12:42 Test Item Value Reference Range Interpretation Comments PROTIME (BEAKER) 13.1 seconds 11.9-14.2 (test code = 759) INR (BEAKER) (test 1.06 See_Comment [Automat ed message] code = 370) The system CONWEAVER generated this result transmitted ref erence range: <=5.90. The reference range was not used to int erpret this result as normal/abnormal . RECOMMENDED COUMADIN/WARFARIN INR THERAPY RANGESSTANDARD DOSE: 2.0 - 3.0 Includes: PROPHYLAXIS for venous thrombosis, systemic embolization; TREATMENT for venous thrombosis and/or pulmonary embolus.HIGH RISK: Target INR is 2.5-3.5 for patients with mechanical heart valves.[id number] 05:42:51 Test Item Value Reference Range Interpretation Comments MAGNESIUM (BEAKER) (test code = 1.7 mg/dL 1.6-2.6 627) City Councilman ID - MARCOBASIC METABOLIC [id number] 05:42:50 Test Item Value Reference Range Interpretation Comments SODIUM (BEAKER) 132 meq/L 136-145 L (test code = 381) [...] (BEAKER) (test code = 652) CALCIUM (BEAKER) 9.0 mg/dL 8.4-10.2 (test code = 697) EGFR (BEAKER) 102 Interpretati on of eGFR (test code = mL/min/1.73 values [...] not appl icable for dialysis patien ts City Councilman ID - MARCOCBC W/PLT COUNT & AUTO [id number] 05:28:00 Test Item Value Reference Range Interpretation Comments WHITE BLOOD CELL COUNT (BEAKER) 10.0 K/ L 3.5-10.5 (test code = 775) RED BLOOD CELL COUNT (BEAKER) 4.54 M/ L 4.63-6.08 L (test code = 761) HEMOGLOBIN (BEAKER) (test code = 14.4 GM/DL 13.7-17.5 410) HEMATOCRIT (BEAKER) (test code = 41.9 % 40.1-51.0 411) MEAN CORPUSCULAR VOLUME (BEAKER) 92 fL 79-92 (test code = 753) MEAN CORPUSCULAR HEMOGLOBIN 31.7 pg 25.7-32.2 (BEAKER) (test code = 751) MEAN CORPUSCULAR HEMOGLOBIN CONC 34.4 GM/DL 32.3-36.5 (BEAKER) (test code = 752) RED CELL DISTRIBUTION WIDTH 12.9 % 11.6-14.4 (BEAKER) (test code = 412) PLATELET COUNT (BEAKER) (test 222 K/CU MM 150-450 code = 756) MEAN PLATELET VOLUME (BEAKER) 9.1 fL 9.4-12.4 L (test code = 754) NUCLEATED RED BLOOD CELLS 0 /100 WBC 0-0 (BEAKER) (test code = 413) NEUTROPHILS RELATIVE PERCENT 64 % (BEAKER) (test code = 429) LYMPHOCYTES RELATIVE PERCENT 23 % (BEAKER) (test code = 430) MONOCYTES RELATIVE PERCENT 10 % (BEAKER) (test code = 431) EOSINOPHILS RELATIVE PERCENT 3 % (BEAKER) (test code = 432) BASOPHILS RELATIVE PERCENT 1 % (BEAKER) (test code = 437) NEUTROPHILS ABSOLUTE COUNT 6.34 K/ L 1.78-5.38 H (BEAKER) (test code = 670) LYMPHOCYTES ABSOLUTE COUNT 2.26 K/ L 1.32-3.57 (BEAKER) (test code = 414) MONOCYTES ABSOLUTE COUNT (BEAKER) 0.98 K/ L 0.30-0.82 H (test code = 415) EOSINOPHILS ABSOLUTE COUNT 0.25 K/ L 0.04-0.54 (BEAKER) (test code = 416) BASOPHILS ABSOLUTE COUNT (BEAKER) 0.08 K/ L 0.01-0.08 (test code = 417) IMMATURE GRANULOCYTES-RELATIVE 0.80 % 0.00-1.00 PERCENT (BEAKER) (test code = 2801) POC-Glucose [id number] 11:50:45 Test Item Value Reference Range Interpretation Comments POC-Glucose Meter (test 116 mg/dL 70-110 H : TE STED AT [facility] code = 1538) [address] [facility], 7[address] 30: City Councilman/Techni ilir ID = [id number] for PELON ROBEDEL Lab Interpretation (test Abnormal code = 89703-5) [facility] [id number] 11:50:45 Test Item Value Reference Range Interpretation Comments POC-GLUCOSE METER 116 mg/dL 70-110 H : [facility] (BE[facility]ER[facility] (test code = [facility], 1538) [address]: City Councilman/Techni ilir ID = [id number] for MATIAS OLMSTEAD POCT-GLUCOSE [id number] 07:12:04 Test Item Value Reference Range Interpretation Comments POC-GLUCOSE METER 100 mg/dL 70-110 : [facility] (BE[facility]ER) (test code = [facility], 1538) [address]: City Councilman/Techni ilir ID = [id number] for PELON OLMSTEADWITHA BASIC METABOLIC [id number] 05:05:52 Test Item Value Reference Range Interpretation [...] (test code = 697) EGFR (BEAKER) 102 Interpretati on of eGFR (test code = mL/min/1.73 values Stage De scription 1092) sq m Result G1 Allie l or high >=90 G2 Mildly decreased 60-89 G3a Mildl y to moderately 45- 59 G3b Moderately to s everely 30-44 G4 Severl y decreased 15-29 G5 Kidney failure <15Reported eGF R is based on the CKD-EPI 2020 equation that d oes not use a race coefficientEsti mated GFR is not as accur ate as Creatinine Brigitte shonda in predicting glom erular filtration rate . Estimated GFR is not appl icable for dialysis patien ts City Councilman ID - HENRY WCBC W/PLT COUNT & AUTO [id number] 04:17:24 Test Item Value Reference Range Interpretation [...] PERCENT (BEAKER) (test code = 2801) POCT-GLUCOSE [id number] 21:09:21 Test Item Value Reference Range Interpretation Comments POC-GLUCOSE METER 119 mg/dL 70-110 H : TESTED A T [facility] 6720 (BEAKER) (test code = [facility], 153) [address]: City Councilman/Techni ilir ID = [id number] for ISAIAS ASHRAF SE POCT-GLUCOSE [id number] 16:49:45 Test Item Value Reference Range Interpretation Comments POC-GLUCOSE METER 87 mg/dL 70-110 : TESTED A T [facility] 6720 (BEAKER) (test code = [facility], 153) [address]: City Councilman/Techni ilir ID = [id number] for KIZHAKEKATTIL, MARIE POCT-GLUCOSE [id number] 12:12:01 Test Item Value Reference Range Interpretation Comments POC-GLUCOSE METER 97 mg/dL 70-110 : TESTED A T [facility] 6720 (BEAKER) (test code = [facility], 153) [address]: City Councilman/Techni ilir ID = [id number] for KIZHAKEKATTIL, MARIE POCT-GLUCOSE [id number] 08:24:18 Test Item Value Reference Range Interpretation Comments POC-GLUCOSE METER 95 mg/dL 70-110 : TESTED A T [facility] 67[address] (BEAKER) (test code = [place], 1538) [id number]: City Councilman/Techni ilir ID = [id number] for MARIE TALAVERA BASIC METABOLIC [id number] 06:41:00 Test Item Value Reference Range Interpretation [...] eGF R is based on the CKD-EPI 1 equation that d oes not use a race coefficientEsti mated GFR is not as accur ate as Creatinine Brigitte merchant in predicting glom erular filtration rate . Estimated GFR is not appl icable for dialysis patien ts City Councilman ID - ALEKSEY [facility] W/PLT COUNT & AUTO [id number] 05:06:23 Test Item Value Reference Range Interpretation [...] PERCENT (BEAKER) (test code = 2801) POCT-GLUCOSE [id number] 21:14:48 Test Item Value Reference Range Interpretation Comments POC-GLUCOSE METER 123 mg/dL 70-110 H : TESTED A T [facility] 6720 (BEAKER) (test code = [place], 1538) 317[address]: City Councilman/Techni ilir ID = [id number] for PE JULIA, SUDHA POCT-GLUCOSE [id number] 17:25:39 Test Item Value Reference Range Interpretation Comments POC-GLUCOSE METER 108 mg/dL 70-110 : TESTED A T [facility] 6720 (BEAKER) (test code = [facility], 1538) 61484: City Councilman/Techni ilir ID = [id number] for CO RTEZ, JILLIAN POCT-GLUCOSE [id number] 11:16:40 Test Item Value Reference Range Interpretation Comments POC-GLUCOSE METER 151 mg/dL 70-110 H : TESTED A T [facility] 6720 (BEAKER) (test code = [facility], 1538) 12669: City Councilman/Techni ilir ID = [id number] for CO RTEZ, JILLIAN POCT-GLUCOSE [id number] 07:40:07 Test Item Value Reference Range Interpretation Comments POC-GLUCOSE METER 91 mg/dL 70-110 : TESTED A T [facility] 6720 (BEAKER) (test code = [facility], 1538) 98765: City Councilman/Techni ilir ID = [id number] for BHAVANI EZ, JILLIAN BASIC METABOLIC [id number] 05:19:53 Test Item Value Reference Range Interpretation [...] not appl icable for dialysis patien ts City Councilman ID - PIAYA LCBC W/PLT COUNT & AUTO [id number] 04:32:38 Test Item Value Reference Range Interpretation [...] PERCENT (BEAKER) (test code = 2801) POCT-GLUCOSE [id number] 20:55:14 Test Item Value Reference Range Interpretation Comments POC-GLUCOSE METER 103 mg/dL 70-110 : TESTED A T [facility] 6720 (BEAKER) (test code = [facility], 1538) 23529: City Councilman/Techni ilir ID = [id number] for SUDHA NEWMAN POCT-GLUCOSE [id number] 17:10:50 Test Item Value Reference Range Interpretation Comments POC-GLUCOSE METER 102 mg/dL 70-110 : TESTED A T [facility] 6720 (BEAKER) (test code = [facility], 1538) 06273: City Councilman/Techni ilir ID = [id number] for LATANYA WALTER POCT-GLUCOSE [id number] 11:36:44 Test Item Value Reference Range Interpretation Comments POC-GLUCOSE METER 81 mg/dL 70-110 : TESTED A T [facility] 6720 (BEAKER) (test code = [facility], 1538) 95729: City Councilman/Techni ilir ID = [id number] for LATANYA KRISHNAMURTHY SARS-CoV2/RT-PCR (Asymptomatic ONLY)2022-06-06 09:22:33 Test Item Value Reference Interpretation Comments Range SARS-COV2/RT-PCR Negative Negative The SARS-Co V-2 (test code = target nucleic 75280-9) acids are not detected in thi s [...] rapid, real-richard e RT-PCR test intended for th e qualitative detection of nucleic acid fr om SARS-CoV-2 in a nasopharyngeal swab specimen collec chely from individual s suspected of COVID-19 [...] revoked sooner. Fact Sheet for Healthcare Providers: https://www.BucketFeet/Documents/Xp ert%20Xpress%20SAR S%20CoV-2/Fact%20S heets/302-3802%20S ARS-COV-2%20HEALTH CARE%20PROVIDERS%2 0FACT%20SHEET.pdf Fact Sheet for Healthcare Patients: https://www.BucketFeet/Documents/Xp ert%20Xpress%20SAR S%20CoV-2/Fact%20S heets/302-3801%20S ARS-COV-2%20PATIEN T%20FACT%20SHEET.p df Lab Interpretation Normal (test code = 98173-3) [facility])2022-06-06 09:22:33 Test Item Value Reference Range Interpretation Comments SARS-COV2/RT-PCR Negative Negative The SARS-Co V-2 target (test code = nucleic acids a re not 6840094) detected in thi s specimen. Negative result [...] revoked sooner. Fact Sheet for Healthcare Providers: https://www.Align Technology m/Documents/Xpert%20Xpress%20SARS%20CoV-2/Fact%20Sheets/3023802%96FANE-RTO-6%20 HEALTHCARE%20PROVIDERS%20FACT%20SHEET.pdf Fact Sheet for Healthcare Patients: https://www.Quipper/Documents/Xpert%20Xp ress%20SARS%20CoV-2/Fact%20Sheets/302-3801%76NASN-JEN-2%20PATIENT%20FACT%20SHEET .pdfPOCT-GLUCOSE [id number] 07:37:53 Test Item Value Reference Range Interpretation Comments POC-GLUCOSE METER 96 mg/dL 70-110 : TESTED A T [facility] 6720 ([facility]) (test code = [facility] Roca [facility], 1538) 32906: City Councilman/Techni ilir ID = [id number] for LATANYA KRISHNAMURTHY BASIC METABOLIC [id number] 06:34:19 Test Item Value Reference Range Interpretation [...] De scription 1092) sq m Result G1 Alile l or high >=90 G2 Mildly decreased [...] not appl icable for dialysis patien ts City Councilman ID - PIAYA LCBC W/PLT COUNT & AUTO [id number] 05:38:02 Test Item Value Reference Range Interpretation [...] PERCENT (BEAKER) (test code = 2801) POCT-GLUCOSE [id number] 21:00:32 Test Item Value Reference Range Interpretation Comments POC-GLUCOSE METER 122 mg/dL 70-110 H : TESTED A T [facility] 6720 (BEAKER) (test code = [facility], 153) 39431: City Councilman/Techni ilir ID = [id number] for EDYTA DAMIEN HENRIQUE POCT-GLUCOSE [id number] 12:05:11 Test Item Value Reference Range Interpretation Comments POC-GLUCOSE METER 101 mg/dL 70-110 : TESTED A T [facility] 6720 (BEAKER) (test code = [facility], 1538) 01343: City Councilman/Techni ilir ID = [id number] for ALFREDO ROCKYMATIAS LOYD POCT-GLUCOSE [id number] 06:58:14 Test Item Value Reference Range Interpretation Comments POC-GLUCOSE METER 99 mg/dL 70-110 : TESTED A T [facility] 6720 (BEAKER) (test code = [facility], 1538) 26581: City Councilman/Techni ilir ID = [id number] for MATIAS WOODRUFF BASIC METABOLIC [id number] 05:22:21 Test Item Value Reference Range Interpretation [...] not appl icable for dialysis patien ts City Councilman ID - PIAYA LCBC W/PLT COUNT & AUTO [id number] 04:36:55 Test Item Value Reference Range Interpretation [...] PERCENT (BEAKER) (test code = 2801) POCT-GLUCOSE [id number] 20:58:57 Test Item Value Reference Range Interpretation Comments POC-GLUCOSE METER 96 mg/dL 70-110 : TESTED Micah Christianson [facility] 6720 (BEAKER) (test code = [place], 1538) 00731: City Councilman/Techni ilir ID = [id number] for HENRIQUE PLASCENCIA POCT-GLUCOSE [id number] 16:29:29 Test Item Value Reference Range Interpretation Comments POC-GLUCOSE METER 137 mg/dL 70-110 H : TESTED A T [facility] 6720 (CARAKER) (test code = [facility], 1538) 76493: City Councilman/Techni ilir ID = [id number] for HU NTER, HIWITHA POCT-GLUCOSE [id number] 11:41:40 Test Item Value Reference Range Interpretation Comments POC-GLUCOSE METER 115 mg/dL 70-110 H : TESTED A T [facility] 6720 (SANAM) (test code = [facility], 1538) 19458: City Councilman/Techni ilir ID = [id number] for HU NTER, HIWITHA CT, CHEST, WITH [id number] 07:53:00Reason for exam:->concern for metastatic diseaseWhat is the patient's sedation requirement?->No Sedation [facility] 1960 Sex: [...] Jeramy Sarabia MDReport Verified Date/Time: 06/04/2022 07:53:54 CT, [id number] 07:53:00Unlisted Reason for Exam - Click Yes and Enter Reason Below- >YesUnlisted Reason for Exam->ischemic bowel and hx of colon cancerIs this for enterography?->NoWill this procedure require oral contrast?->Yes [facility] : 1960 Sex: MFINAL [...] right common iliac artery. Signed: Jeramy Sarabia [facility] Verified Date/Time: 06/04/2022 07:53:54 POCT-GLUCOSE [id number] 06:55:58 Test Item Value Reference Range Interpretation Comments POC-GLUCOSE METER 95 mg/dL 70-110 : TESTED A T [facility] 6720 (BEAKER) (test code = [place], 1538) 60668: City Councilman/Techni ilir ID = [id number] for MATIAS WOODRUFF BASIC METABOLIC [id number] 06:20:56 Test Item Value Reference Range Interpretation [...] not appl icable for dialysis patien ts City Councilman ID - BSCBC W/PLT COUNT & AUTO [id number] 05:27:59 Test Item Value Reference Range Interpretation [...] PERCENT (BEAKER) (test code = 2801) POCT-GLUCOSE [id number] 21:20:45 Test Item Value Reference Range Interpretation Comments POC-GLUCOSE METER 115 mg/dL 70-110 H : TESTED A T [facility] 6720 (BEAKER) (test code = [facility], [facility]) 38367: City Councilman/Techni ilir ID = [id number] for Ashley Hartmann POCT-GLUCOSE [id number] 17:16:19 Test Item Value Reference Range Interpretation Comments POC-GLUCOSE METER 114 mg/dL 70-110 H : TESTED A T [facility] 6720 (BEAKER) (test code = [facility], [facility]) 90428: City Councilman/Techni ilir ID = [id number] for Am ador, Doe POCT-GLUCOSE [id number] 11:17:49 Test Item Value Reference Range Interpretation Comments POC-GLUCOSE METER 117 mg/dL 70-110 H : TESTED A T [facility] 6720 (BEAKER) (test code = [facility], [facility]) 35548: City Councilman/Techni ilir ID = [id number] for Am ador, Doe POCT-GLUCOSE [id number] 07:38:05 Test Item Value Reference Range Interpretation Comments POC-GLUCOSE METER 106 mg/dL 70-110 : TESTED A T [facility] 6720 (BEAKER) (test code = [facility], [facility]) 73411: City Councilman/Techni ilir ID = [id number] for Am ador, Doe BASIC METABOLIC [id number] 05:34:55 Test Item Value Reference Range Interpretation [...] eGF R is based on the CKD-EPI 202 equation that d oes not use a race coefficientEsti mated GFR is not as accur ate as Creatinine Brigitte shonda in predicting glom erular filtration rate . Estimated GFR is not appl icable for dialysis patien ts City Councilman ID - ALEKSEY MCBC W/PLT COUNT & AUTO [id number] 05:08:48 Test Item Value Reference Range Interpretation [...] PERCENT (BEAKER) (test code = 2801) POCT-GLUCOSE [id number] 21:02:44 Test Item Value Reference Range Interpretation Comments POC-GLUCOSE METER 122 mg/dL 70-110 H : TESTED A T [facility] 6720 [facility] (test code = [facility], 153) 51540: City Councilman/Techni ilir ID = [id number] for Ashley Hartmann POCT-GLUCOSE [id number] 14:54:50 Test Item Value Reference Range Interpretation Comments POC-GLUCOSE METER 97 mg/dL 70-110 : TESTED A [facility] 6720 ([facility]) (test code = [facility], 1538) 70093: City Councilman/Techni ilir ID = [id number] for JOVAN PRATER DERRICK POC ACTIVATED CLOTTING [id number] 14:04:22 Test Item Value Reference Range Interpretation Comments Activated Clotting Time 260 sec : 74 -137 seconds, (test code = 3184-9) Baselin e: TESTED AT [facility] 6720 [facility], 770 30: City Councilman/Techni ilir ID = [id number] for Shaka huggins (contract), Aar on [facility] ACTIVATED CLOTTING [id number] 14:04:22 Test Item Value Reference Range Interpretation Comments Activated Clotting Time 260 sec : 74 -137 seconds, (test code = 3184-9) Baselin e: TESTED AT [facility] 6720 [facility], 770 30: City Councilman/Techni ilir ID = [id number] for Ga rza (contract), Aar on [facility]PO[facility]-[id number] 14:04:22 Test Item Value Reference Range Interpretation Comments ACTIVATED CLOTTING TIME 260 sec : 74 -137 seconds, (BEAKER) (test code = Reji ne: TESTED AT 441) [facility] 6720 [facility], 770 30: City Councilman/Techni ilir ID = [id number] for Ga rza (contract), Aar on POCT-GLUCOSE [id number] 11:19:31 Test Item Value Reference Range Interpretation Comments POC-GLUCOSE METER 96 mg/dL 70-110 : TESTED A T [facility] 6720 (BEAKER) (test code = [facility], 1538) 61908: City Councilman/Techni ilir ID = [id number] for Amad or, Doe POCT-GLUCOSE [id number] 08:05:08 Test Item Value Reference Range Interpretation Comments POC-GLUCOSE METER 98 mg/dL 70-110 : TESTED A T [facility] 6720 (BEAKER) (test code = [facility], 1538) 21835: City Councilman/Techni ilir ID = [id number] for Amad or, Doe CBC W/PLT COUNT & AUTO [id number] 06:08:47 Test Item Value Reference Range Interpretation [...] (BEAKER) (test code = 2801) BASIC METABOLIC [id number] 05:29:11 Test Item Value Reference Range Interpretation [...] not appl icable for dialysis patien ts City Councilman ID - PIAYA LPOCT-GLUCOSE [id number] 21:07:11 Test Item Value Reference Range Interpretation Comments POC-GLUCOSE METER 100 mg/dL 70-110 : TESTED A T [facility] 6720 ([employer]) (test code = [facility], 1538) 33668: City Councilman/Techni ilir ID = [id number] for MATHEUS ROD POCT-GLUCOSE [id number] 16:42:15 Test Item Value Reference Range Interpretation Comments POC-GLUCOSE METER 99 mg/dL 70-110 : TESTED A T [facility] 6720 ([employer]) (test code = [facility], 1538) 59816: City Councilman/Techni ilir ID = [id number] for LATANYA KRISHNAMURTHY POCT-GLUCOSE [id number] 12:34:23 Test Item Value Reference Range Interpretation Comments POC-GLUCOSE METER 115 mg/dL 70-110 H : TESTED A T [facility] 6720 ([employer]) (test code = [facility] Tucker Blair [facility], 1538) 18374: City Councilman/Techni ilir ID = [id number] for LATANYA WALTER 2D Echo W/Doppler(CW/PW/Color)2022-06-01 10:23:04Ejection FractionSLEH [facility]CHO [facility]Do[facility](CW/PW/Color)2022-06-01 10:23:04Ejection FractionSLEH ECHO [facility]2022[facility]21 07:44:37 Test Item Value Reference Range Interpretation Comments MAGNESIUM (BEAKER) (test code = 1.9 mg/dL 1.6-2.6 627) City Councilman ID - MANPREET [id number] 07:44:37 Test Item Value Reference Range Interpretation Comments PHOSPHORUS (BEAKER) (test code = 3.5 mg/dL 2.3-4.7 604) City Councilman ID - MANPREET GBASIC METABOLIC [id number] 07:44:36 Test Item Value Reference Range Interpretation [...] eGF R is based on the CKD-EPI 1 equation that d oes not use a race coefficientEsti mated GFR is not as accur ate as Creatinine Brigitte merchant in predicting glom erular filtration rate . Estimated GFR is not appl icable for dialysis patien ts City Councilman ID - MANPREET GPOCT-GLUCOSE [id number] 07:37:57 Test Item Value Reference Range Interpretation Comments POC-GLUCOSE METER 101 mg/dL 70-110 : [facility] (BEAKER) (test code = [place], 1538) 63432: City Councilman/Techni ilir ID = [id number] for LATANYA WALTER CBC W/PLT COUNT & AUTO [id number] 05:49:58 Test Item Value Reference Range Interpretation [...] PERCENT (BEAKER) (test code = 2801) POCT-GLUCOSE [id number] 22:17:39 Test Item Value Reference Range Interpretation Comments POC-GLUCOSE METER 103 mg/dL 70-110 : TESTED A T [facility] 6720 (BEAKER) (test code = [facility], 1538) 72152: City Councilman/Techni ilir ID = [id number] for Misael ruiz (contract)Rishi POCT-GLUCOSE [id number] 17:17:44 Test Item Value Reference Range Interpretation Comments POC-GLUCOSE METER 109 mg/dL 70-110 : TESTED A T [facility] 6720 (BEAKER) (test code = [facility], 153) 55658: City Councilman/Techni ilir ID = [id number] for Eric Apple POCT-GLUCOSE [id number] 11:56:56 Test Item Value Reference Range Interpretation Comments POC-GLUCOSE METER 112 mg/dL 70-110 H : TESTED A T [facility] 6720 (BEAKER) (test code = [facility], 153) 35329: City Councilman/Techni ilir ID = [id number] for MATIAS OLMSTEAD CBC W/PLT COUNT & AUTO [id number] 08:34:37 Test Item Value Reference Range Interpretation [...] (test code = 2801) HIGH SENSITIVITY TROPONIN [id number] 07:20:15 Test Item Value Reference Range Interpretation Comments HIGH SENSITIVITY 10 pg/ml See_Comment [Automated message] TROPONIN I (test code = The system which 1193491) generated this result transmitted ref erence range: <=35. Th e reference range was not used to int erpret this result as normal/abnormal . City Councilman ID - MANPREET GThe WET PROCESS OPERATOR STAT High Sensitivity Troponin-I results should be used in conjunction with other diagnostic information such as ECG, clinical observations and information, and patient symptoms to aid in the diagnosis of [place].RAD, CHEST, 1 VIEW, NON [id number] 07:06:00Reason for exam:- >new chest painShould this be performed at the bedside?->Yes [facility] 1960 Sex: [...] distention of small bowel loops. Signed: Tatyana aBng MDReport Verified Date/Time: 05/31/2022 07:06:21 , ABDOMEN/KUB, 1 VIEW [id number] 07:06:00Reason for exam:->new severe RLQ painShould this be performed at the bedside?->Yes [facility] 1960 Sex: MFINAL REPORT [...] distention of small bowel loops. Signed: Tatyana Bangeport Verified Date/Time: 05/31/2022 07:06:21 -GLUCOSE [id number] 07:05:02 Test Item Value Reference Range Interpretation Comments POC-GLUCOSE METER 103 mg/dL 70-110 : TESTED A T [facility] 6720 (BEAKER) (test code = [facility] [facility], 1538) 52051: City Councilman/Techni ilir ID = [id number] for ALFREDO NTPELON LOYDWITHA [id number] 06:21:54 Test Item Value Reference Range Interpretation Comments PHOSPHORUS (BEAKER) (test code = 3.4 mg/dL 2.3-4.7 604) City Councilman ID - MANPREET GBASIC METABOLIC [id number] 06:21:53 Test Item Value Reference Range Interpretation [...] not appl icable for dialysis patien ts City Councilman ID - MANPREET [id number] 06:21:53 Test Item Value Reference Range Interpretation Comments MAGNESIUM (BEAKER) (test code = 1.5 mg/dL 1.6-2.6 L 627) City Councilman ID - MANPREET GCT, [id number] 23:26:00Unlisted Reason for Exam - Click Yes and Enter Reason Below->YesUnlisted Reason for Exam->epigastric and LUQ severe pain; history of prior colon cancer remotelyIs this for enterography?->NoPlease specify:->Pancreasspleen and GI tractWill this procedure require oral contrast?->Yes [facility] : 1960 Sex: [...] on a nonemergent basis. Signed: Erika Echavarria [facility] Verified Date/Time: 05/30/2022 23:26:03 PET/CT, CARDIAC PERF REST AND STRESS 2022-05-30 23:00:00Reason for exam:->cardiac screening, high CAD risk [facility] : 1960 Sex: MFINAL REPORT PROCEDURE: PET/CT Rest/Stress MYOCARDIAL PERFUSION with regadenoson\\XA9\\CPTCODE: [id number]: CADPROTOCOL: Limited low-dose CT imaging was performed for attenuation correction. 40.0 mCi of Rb-82 chloride was injected iv at rest, and gated PET (positron emission tomography) images were obtained. Subsequently, 40.1 mCi of Rb-82 chloride was injected iv at expected peak pharmacologic effect, and gated PET images were obtained. PRELIMINARY STRESS TEST DATA FROM NONINVASIVECARDIOLOGY: Pharmacologic stress was by 10- second iv [...] evaluation was not available from Cardiology at thetime of this report. (Final ECG interpretation and other stress and monitoring data are reported separately by Cardiology.) IMAGING FINDINGS: Study quality is fair due to persistent patient motion. Images obtained after stress injection show mild decrease in activity in the mid and apical anterior, apical, and inferoapical LV. Resting images show diffuse moderate improvement. Gated images obtained at rest and with stress show normal LV wall motion and thickening. LVEF at rest is 60-65%. LVEF at stress is 60-65%. IMPRESSION: 1. Abnormal study. 2. Appropriate pharmacologic stress. 3. Abnormal myocardial perfusion. There is a mild, medium size, mostly reversible, apical/periapical perfusion defect. 4. Normal resting LV function. No deterioration with pharmacologic stress. 5. The ascending aorta is only partially visualized and is dilated. 6. No prior study. Signed: Joel Eden MDReport Verified Date/Time: 05/30/2022 23:00:16 POCT-GLUCOSE [id number] 21:22:07 Test Item Value Reference Range Interpretation Comments POC-GLUCOSE METER 113 mg/dL 70-110 H : TESTED A T [facility] 6720 ([employer]) (test code = [place], 1538) 63166: City Councilman/Techni liir ID = [id number] for Ashley Hartmann SARS-COV2/RT-PCR ([facility])2022-05-30 17:11:48 Test Item Value Reference Range Interpretation Comments SARS-COV2/RT-PCR Negative Negative The SARS-Co V-2 target (test code = nucleic acids a re not 7241759) detected in thi s specimen. Negative result [...] revoked sooner. Fact Sheet for Healthcare Providers: https://www.Rossolini.co m/Documents/Xpert%20Xpress%20SARS%20CoV-2/Fact%20Sheets/911-3802%51KVGZ-UYZ-4%20 HEALTHCARE%20PROVIDERS%20FACT%20SHEET.pdf Fact Sheet for Healthcare Patients: https://www.Quipper/Documents/Xpert%20Xp ress%20SARS%20CoV-2/Fact%20Sheets/361-3801%54LAOT-XMR-7%20PATIENT%20FACT%20SHEET .pdfPOCT-GLUCOSE [id number] 17:06:14 Test Item Value Reference Range Interpretation Comments POC-GLUCOSE METER 164 mg/dL 70-110 H : TESTED A T [facility] 6720 (BEAKER) (test code = [place], 1538) 45324: City Councilman/Techni ilir ID = [id number] for Eric Apple POCT-GLUCOSE [id number] 08:05:36 Test Item Value Reference Range Interpretation Comments POC-GLUCOSE METER 96 mg/dL 70-110 : TESTED A T [facility] 6720 (BEAKER) (test code = [facility] [facility], 1538) 50509: City Councilman/Techni ilir ID = [id number] for Eric Renteria BASIC METABOLIC [id number] 05:09:47 Test Item Value Reference Range Interpretation [...] not appl icable for dialysis patien ts City Councilman ID - MANPREET [id number] 05:09:47 Test Item Value Reference Range Interpretation Comments MAGNESIUM (BEAKER) (test code = 1.6 mg/dL 1.6-2.6 627) City Councilman ID Estella CASE [id number] 05:09:47 Test Item Value Reference Range Interpretation Comments PHOSPHORUS (BEAKER) (test code = 3.7 mg/dL 2.3-4.7 604) City Councilman ID Estella CASE GCBC W/PLT COUNT & AUTO [id number] 04:50:40 Test Item Value Reference Range Interpretation [...] (BEAKER) (test code = 2801) Carotid doppler [id number] 21:49:59Ejection FractionSLEH ECHO HEARTLAB [facility] do[facility] [id number] 21:49:59Ejection FractionSLEH ECHO HEARTLAB [facility] [id number] 21:16:22 Test Item Value Reference Range Interpretation Comments POC-GLUCOSE METER 118 mg/dL 70-110 H : [facility] (test code = [facility], 153) 07222: City Councilman/Techni ilir ID = [id number] for PE KRISTAISAURO, SUDHA CARCINOEMBRYONIC ANTIGEN (CEA)2022-05-29 17:38:23 Test Item Value Reference Range Interpretation Comments CARCINOEMBRYONIC ANTIGEN (BEAKER) 2.9 ng/mL 0.0-5.0 (test code = 685) City Councilman ID - BSALPHA FETOPROTEIN (AFP), TUMOR [id number] 17:38:23 Test Item Value Reference Range Interpretation Comments ALPHA-FETOPROTEIN (BEAKER) (test 4.7 ng/mL <10.0 code = 1094) City Councilman ID - BSPOCT-GLUCOSE [id number] 16:54:18 Test Item Value Reference Range Interpretation Comments POC-GLUCOSE METER 176 mg/dL 70-110 H : TESTED A T [facility] 6720 (BEAKER) (test code = [facility], 1538) 77149: City Councilman/Techni ilir ID = [id number] for Adarsh Aubrey aditya POCT-GLUCOSE [id number] 11:26:02 Test Item Value Reference Range Interpretation Comments POC-GLUCOSE METER 99 mg/dL 70-110 : TESTED A T [facility] 6720 (BEAKER) (test code = [place], 1538) 18349: City Councilman/Techni ilir ID = [id number] for Eric Renteria CBC W/PLT COUNT & AUTO [id number] 10:23:04 Test Item Value Reference Range Interpretation [...] PERCENT (BEAKER) (test code = 2801) PROTHROMBIN TIME/[id number] 08:41:01 Test Item Value Reference Range Interpretation Comments PROTIME (BEAKER) 10.9 seconds 9.8-12.0 (test code = 759) INR (BEAKER) (test 0.99 See_Comment [Automat ed message] code = 370) The system CONWEAVER generated this result transmitted ref erence range: <=5.90. The reference range was not used to int erpret this result as normal/abnormal . RECOMMENDED COUMADIN/WARFARIN INR THERAPY RANGESSTANDARD DOSE: 2.0 - 3.0 Includes: PROPHYLAXIS for venous thrombosis, systemic embolization; TREATMENT for venous thrombosis and/or pulmonary embolus.HIGH RISK: Target INR is 2.5-3.5 for patients with mechanical heart valves.POCT-GLUCOSE [id number] 07:36:23 Test Item Value Reference Range Interpretation Comments POC-GLUCOSE METER 98 mg/dL 70-110 : TESTED A T [facility] 6720 (BEAKER) (test code = [place], 1538) [address]: City Councilman/Techni ilir ID = [id number] for Eric Renteria BASIC METABOLIC [id number] 06:13:40 Test Item Value Reference Range Interpretation [...] not appl icable for dialysis patien ts City Councilman ID - MANPREET [id number] 06:13:40 Test Item Value Reference Range Interpretation Comments MAGNESIUM (BEAKER) (test code = 1.7 mg/dL 1.6-2.6 627) City Councilman ID - MANPREET [id number] 06:13:40 Test Item Value Reference Range Interpretation Comments PHOSPHORUS (BEAKER) (test code = 3.1 mg/dL 2.3-4.7 604) City Councilman ID - MANPREET Godoy
[2022-07-24 20:47] LABS: Specific Gravity 1.008 (1.005-1.030); Urine Bacteria None Seen /HPF (<20); Urine Bilirubin NEGATIVE (Negative); Urine Blood Negative (Negative); Urine Clarity Clear (Clear); Urine Color Light-Yellow (Yellow); Urine Glucose NEGATIVE (Negative); Urine Protein NEGATIVE (Negative); Urine RBC <5 /HPF (None Seen); Urine Urobilinogen Normal (Normal)
[2022-07-24] MEDS ORDERED: ACETAMINOPHEN 325 MG TABLET PO PRN (21:19)
[2022-07-24] MEDS ORDERED: BISACODYL E.C. 5 MG TAB PO PRN (21:20)
[2022-07-24] MEDS ORDERED: Oxycodone HCl/Acetaminophen 1 TAB TAB PO PRN (21:29)
[2022-07-24] MEDS ORDERED: HYDROCODONE/APAP 10/325 TAB PO SCH (22:00)
[2022-07-24] MEDS ORDERED: D50W 25 GM/50 ML SYRINGE IV PRN (23:53)
[2022-07-24] MEDS ORDERED: GLUCAGON 1 MG/VIAL IM PRN (23:53)
[2022-07-25] MEDS ORDERED: HYDROCODONE/APAP 10/325 TAB PO PRN (01:45)
[2022-07-25] MEDS: METOPROLOL XL 25 MG TAB PO SCH (05:09)
[2022-07-25] MEDS ORDERED: D50W 25 GM/50 ML SYRINGE IV PRN (06:25)
[2022-07-25] MEDS ORDERED: GLUCAGON 1 MG/VIAL IM PRN (06:25)
[2022-07-25] MEDS: INSULIN -REGULAR HUMAN 50 UNIT/0.5 ML ML SQ SCH ×3 (07:04→16:29)
[2022-07-25 07:23] LABS: Lymphocytes % 28.9 % (15.3-44.8); MCV 90.1 fL (80-100); MPV 6.6 fL (7.6-11.3); RBC Red Blood Cell Count 3.99 M/uL (4.33-5.43)
[2022-07-25] MEDS ORDERED: INSULIN LISPRO 100 UNIT/1 ML SQ SCH (07:30)
[2022-07-25] MEDS: ENOXAPARIN 40 MG/0.4 ML SQ SCH (07:38)
[2022-07-25 07:42] LABS: Albumin 3.3 g/dL (3.4-5.0); Magnesium 1.9 mg/dL (1.6-2.4); Potassium 4.3 mmol/L (3.5-5.1); Prealbumin 31.1 mg/dL (20-40)
[2022-07-25] MEDS ORDERED: SODIUM CHLORIDE 1 GM TAB PO SCH (08:00)
[2022-07-25] MEDS ORDERED: AMLODIPINE 10 MG TAB PO SCH ×2 (08:00→20:00)
[2022-07-25] MEDS: DOCUSATE NA/SENNA CONC 1 TAB PO SCH ×2 (08:00→19:40)
[2022-07-25] MEDS ORDERED: [UNRECOGNIZED DRUG - OTHER] PO SCH (08:00)
[2022-07-25] MEDS: LIDOCAINE 4% PATCH TOP SCH (08:30)
[2022-07-25] MEDS: CELECOXIB 100 MG CAPSULE PO SCH ×2 (08:31→19:39)
[2022-07-25] MEDS: NICOTINE 7 MG/PAT TD SCH (08:32)
[2022-07-25] MEDS: CYCLOBENZAPRINE 10 MG TAB PO SCH ×3 (08:33→19:38)
[2022-07-25] MEDS: ASPIRIN 81 MG CHEWABLE TABLET PO SCH (08:33)
[2022-07-25] MEDS: ENALAPRIL 10 MG TAB PO SCH (10:55)
[2022-07-25] MEDS: SODIUM CHLORIDE 1 GM TAB PO SCH (16:52)
[2022-07-25] MEDS: GABAPENTIN 300 MG CAP PO SCH (19:39)
[2022-07-25] MEDS: ATORVASTATIN 40 MG TAB PO SCH (19:39)
[2022-07-25] MEDS: TRAZODONE 50 MG TABLET PO SCH (19:39)
[2022-07-25] MEDS: HYDROCODONE/APAP 5/325 MG TAB PO PRN (19:46)
[2022-07-25] MEDS ORDERED: GABAPENTIN 300 MG CAP PO SCH (21:00)
--- NOTE | 2022-07-25 23:56 | HP ---
Date of Admission: 07/24/2022 Time Of Service: 11:30 a.m. Chief Complaint: Weakness in the legs, thighs, to the waist, and numbness in the same area and in th e hands as well. History Of Present Illness: Mr. Abraham is a 62-year-old right-handed patient with a histo ry of hypertension, colon cancer with resection, COVID-19 infection early last year who comes to [facility] on June 12 initially with progressive weakness and falling where he is unable to m aintain balance. He mentioned that he had the COVID-19 vaccine somewhere around 6 months ago and at that point began having progressive weakness, perhaps several weeks after. Initially, he had tinglin g in his feet which progressed proximally to his legs and his upper extremities, to the waist, and th en involved the hands. He also had weakness and was unable to ambulate without a cane, and then, a w alker, and then, he was confined to a wheelchair. About 2 or 3 days prior to his admission to the [facility], he was unable to stand at all. He was seen at [facility] in [place], where he had a cardiac c atheterization. He said he was unclear of what the diagnosis was there, but it did not show any sign ificant large vessel disease. He reports he was put out on a chair to go home and eventually came to [facility]. At this point, he was actually sent back to on June 18 to [facility] for [facility] management of his leg weakness. Workup there including brain and C-spine MRI which showed changes that were acute and subacute in terms of possible stroke and the cervical spine showing abnormalities with potential diagnosis of subacute combined degeneration versus transverse myelitis and multiple s clerosis. He has had a lumbar puncture which was done, but those results are not yet back. As a res ult of falls, he has had pain in the ankles but imaging shows no fractures. While at [facility], he d id receive IV steroids, but did not receive IVIG. Given the patient's comorbid conditions and his di ffuse weakness with inability to stand and ambulate, he is not safe to go home or to a [facility] because of the medical needs and is therefore more appropriate for acute inpatient rehabil itation. Past Medical History: Colon cancer with resection, hypertension, prior myocardial infarction over 20 years ago, dyslipidemia, gastroesophageal reflux disease, right common iliac artery aneurysm, granul omatous lung nodules, and COVID-19 vaccine about a year ago. Imaging: MRI of the brain shows subacute and chronic strokes, and the C-spine shows posterior cord s ignal abnormality extending from C1-C7 with differential diagnosis including subacute combined degene ration, demyelination, and transverse myelitis. Social History: He denies alcohol, tobacco, or IV drug use. Past Surgical History: Colon resection, cardiac catheterization. Family History: Noncontributory. Current Medications: Tylenol 650 mg every 4 hours as needed, [place] 5/325 every 6 hours as needed, No rvasc 5 mg twice daily, aspirin 81 mg daily, Lipitor 40 mg at bedtime, Dulcolax 10 per rectum for con stipation as needed, Celebrex 100 mg twice daily, Flexeril 5 mg 3 times daily, Vasotec 10 mg daily, L ovenox 40 mg subcutaneously daily, gabapentin 300 mg twice daily. He has insulin sliding scale. Max oderm patch 7 mg daily, Toprol 25 mg daily. Lidocaine patch to apply for 12 hours on and 12 hours of f. Sodium chloride 1 g twice daily and Desyrel 50 mg at bedtime. Note, while at [facility], he did h ave low sodium and was put on 2 g of sodium twice daily. He does say that causes heartburn and he major s now decreased to 1 mg of sodium twice daily. Review of Systems: As noted. He has weakness and tingling in the legs and arms, myalgias, muscle spasms as well, and ar thralgias. No fevers or chills. No active psychiatric issues or gastrointestinal or genitourinary p roblems. Physical Examination: Vital Signs: Blood pressure ranging 108-126/66-75, pulse of 74-89, respiratory rate of 16-18, temper ature 98, oxygen saturation 98%. General: Mr. Abraham is in a wheelchair, doing physical therapy. HEENT: He is normocephalic, atraumatic. Sclerae anicteric. Oropharynx is pink, moist. Neck: Supple. Chest: Clear. Heart: Regular. Extremities: Show no clubbing, cyanosis, or edema. Neurological: He is alert, oriented to person, place, and situation. No cranial nerve deficits. In terms of motor examination, lower extremities around 2 to 3/5 proximally and distally, and upper ext remities, he is stronger there around 5/5 proximally and distally. Decreased light touch, pinprick, temperature in the legs and the arms. Reflexes are still brisk in the lower extremities at 3+ at the patella and heels and 1 in the upper extremities consistent with upper motor neuron finding. This i s not consistent with a Guillain-[place]. Please note, he had a lumbar puncture while at [facility] on 06/15/2022. The study showed g lucose was 51, protein 44, CSF beta amyloid 40 was 12,453; beta amyloid 42 was 2627; the beta amyloid 42/40 was 0.21 which indicates a lower likelihood of Alzheimer disease. He had white blood cell cou nt 7, red blood cell count was 141, and it was clear, colorless and not xanthochromic. His COVID-19 test has been negative 4 times; May 28, June 12, June 18, and July 24. Current Level Of Functioning: Currently, eating, oral hygiene, toileting hygiene, showering, bathing , upper body dressing, between independent down to moderate assistance level, that is eating independ ent; oral hygiene independent; toileting moderate assistance; showering moderate assistance; lower bassem dy dressing moderate assistance; upper body dressing moderate assistance; required the role from left -to-right and paloa-hv-scok moderate assistance; sit to stand, moderate assistance; tolerating transf ers, moderate assistance; walking, moderate assistance. He did walk 40 feet with moderate assistance . Rehabilitation Assessment And Plan: Mr. 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 In addition, he has colon cancer with res ection, hypertension, dyslipidemia, gastroesophageal reflux disease, right common iliac aneurysm, and granulomatous lung nodules. His rehabilitation impairment category is 05, spinal cord dysfunction n ontraumatic, and his rehabilitation impairment group is 04.130, other nontraumatic spinal cord dysfun ction. Active comorbids are coronary artery disease, gastroesophageal reflux disease, dyslipidemia, hyperten olu. He had hyponatremia that is resolved and hyperkalemia. Other comorbidities include the right common iliac aneurysm, granulomatous lung, subacute and chronic strokes. His risk of complications h ave include myocardial infarction, heart failure, stroke, dependent ulcers, infection, spasms, confus ion, lethargy, seizures, collapse, dehydration, arrhythmia, bradycardia, cardiac arrest, and the impa ct of comorbid conditions. Given the patient's increased stiffness in the lower extremities with spa sms and weakness and numbness, he is at high risk of falling and fracture, which has to be addressed aggressively with him using a walker at all times and with the therapist at all times and if need be bed alarm if he is not liked to be compliant with remaining in the bed unless he is assisted out. Ot yakelin, he is on DVT prophylaxis. Hypertension and dyslipidemia will be addressed aggressively. Hi s hyponatremia which is now corrected. We will decrease the sodium to 1 twice a day instead of 2 g t wice a day. Rehabilitation Plan: Mr. Abraham will have 3-1/2 hours of physical, occupational, and speech therapy if needed, 5 or 7 days. He will participate fully to help with his improvement. He has a good understanding of the process of inpatient rehabilitation and will benefit from the interdiscip linary approach including physical, occupational, speech therapy, and physician evaluation daily. If need be the Respiratory services or Pulmonary services will be involved. Wound care will be called in if need be. Psychiatric services will be called in if there is issues of depression. Nutritional services will be called in as needed. Given his complex condition, risk of further medical complica tions, he is more likely to do inpatient rehabilitation unit versus a lower level, such as a skilled rehabilitation facility. Barriers to discharge: At this point, he does not have barriers that cannot be easily overcome throu gh his discharge. Estimated Length Of Stay: Around 12 days. Disposition: Home. Prognosis: Good. Rehabilitation Goals: To become independent with upper and lower body dressing, toileting, transferr ing, and ambulating household distances and then 250 feet with independence using a rolling walker at all times. Also up and down 10 steps with modified independence with using bilateral handrails. I acknowledge I have personally examined Mr. Abraham within 24 hours of his admission to rehabilitati on unit and determined that he is able to tolerate the above course of treatment as intensive as it i s outlined. A detailed individualized plan of care will be completed by hospital day 4 based on the preadmission screen, admission history and physical, and therapy evaluations. VANITA Voice ID: [id number]
[2022-07-26] MEDS: METOPROLOL XL 25 MG TAB PO SCH (05:21)
[2022-07-26] MEDS: [UNRECOGNIZED DRUG - OTHER] PO SCH (08:00)
[2022-07-26] MEDS: DOCUSATE NA/SENNA CONC 1 TAB PO SCH ×2 (08:00→19:52)
[2022-07-26] MEDS: AMLODIPINE 5 MG TAB PO SCH ×2 (08:00→19:54)
[2022-07-26] MEDS: LIDOCAINE 4% PATCH TOP SCH (08:37)
[2022-07-26] MEDS: ENOXAPARIN 40 MG/0.4 ML SQ SCH (08:37)
[2022-07-26] MEDS: NICOTINE 7 MG/PAT TD SCH (08:37)
[2022-07-26] MEDS: ASPIRIN 81 MG CHEWABLE TABLET PO SCH (08:38)
[2022-07-26] MEDS: SODIUM CHLORIDE 1 GM TAB PO SCH ×2 (08:38→16:39)
[2022-07-26] MEDS: GABAPENTIN 300 MG CAP PO SCH ×2 (08:38→19:54)
[2022-07-26] MEDS: CELECOXIB 100 MG CAPSULE PO SCH ×2 (08:38→19:54)
[2022-07-26] MEDS: CYCLOBENZAPRINE 10 MG TAB PO SCH ×3 (08:38→19:53)
[2022-07-26] MEDS ORDERED: AMLODIPINE 2.5 MG TAB ONE (08:45)
[2022-07-26] MEDS: HYDROCODONE/APAP 5/325 MG TAB PO PRN ×2 (08:50→19:55)
[2022-07-26] MEDS: ENALAPRIL 10 MG TAB PO SCH (11:10)
[2022-07-26] MEDS: TRAZODONE 50 MG TABLET PO SCH (19:55)
[2022-07-26] MEDS: ATORVASTATIN 40 MG TAB PO SCH (19:55)
[2022-07-27] MEDS: METOPROLOL XL 25 MG TAB PO SCH (05:07)
[2022-07-27] MEDS: ENOXAPARIN 40 MG/0.4 ML SQ SCH (07:27)
[2022-07-27] MEDS: HYDROCODONE/APAP 5/325 MG TAB PO PRN (07:31)
[2022-07-27] MEDS: LIDOCAINE 4% PATCH TOP SCH (07:32)
[2022-07-27] MEDS: ASPIRIN 81 MG CHEWABLE TABLET PO SCH (07:33)
[2022-07-27] MEDS: DOCUSATE NA/SENNA CONC 1 TAB PO SCH ×2 (07:33→20:00)
[2022-07-27] MEDS: CELECOXIB 100 MG CAPSULE PO SCH ×2 (07:34→20:37)
[2022-07-27] MEDS: [UNRECOGNIZED DRUG - OTHER] PO SCH (07:35)
[2022-07-27] MEDS: GABAPENTIN 300 MG CAP PO SCH ×2 (08:33→20:36)
[2022-07-27] MEDS: NICOTINE 7 MG/PAT TD SCH (08:33)
[2022-07-27] MEDS: SODIUM CHLORIDE 1 GM TAB PO SCH ×2 (08:34→16:11)
[2022-07-27] MEDS: CYCLOBENZAPRINE 10 MG TAB PO SCH ×2 (08:34→14:00)
[2022-07-27] MEDS: AMLODIPINE 5 MG TAB PO SCH ×2 (08:35→20:36)
[2022-07-27] MEDS: Oxycodone HCl/Acetaminophen 1 TAB TAB PO PRN ×2 (10:38→19:15)
[2022-07-27] MEDS: ENALAPRIL 10 MG TAB PO SCH (10:56)
[2022-07-27] MEDS ORDERED: CYCLOBENZAPRINE 10 MG TAB PO PRN (14:25)
[2022-07-27] MEDS: HYDROCODONE/APAP 7.5/325 MG TAB PO PRN ×2 (15:41→23:25)
--- NOTE | 2022-07-27 20:10 | PN ---
Date of Progress Note: 07/27/2022 Time Of Service: 12:30 p.m. Subjective: Mr. Arbaham is doing well. He is recovering his strength of lower extremities very well . Sensation is improving significantly in the same region as well. He denies any new complaints. Aashish juarez did have showers and participated well with his shower. Review of Systems: No fevers or chills. No nausea, vomiting. No significant myalgias or arthralgias. Physical Examination: Vital Signs: Blood pressure 111/74, pulse up to 94, respiratory rate 16, temperature is 97.8, oxygen saturation 98%. General: Mr. Abraham is in chair wheeling to do therapy. He is in no acute distress. HEENT: He is normocephalic, atraumatic. Sclerae anicteric. Oropharynx pink and moist. Neck: Supple. Chest: Clear. Heart: Regular. Extremities: Show no significant cyanosis or edema. Neurological: Proximally and distally, he does have upper extremities 5/5 strength. Lower extremiti es does have 3 to 4/5 strength, now improving in the lower extremities. Laboratory Studies: No new laboratory studies. X-ray Imaging: No new x-rays or images. Medications: [place] 7.5/325 every 6 hours, Tylenol 650 every 4 hours as needed, Norvasc 5 mg twice da sina, aspirin 81 mg daily, Lipitor 40 mg at bedtime, Dulcolax 10 mg per rectum as needed, Celebrex 100 mg twice daily, Flexeril 5 mg 3 times daily, Vasotec 10 mg daily, Lovenox 40 mg subcutaneously daily , gabapentin 300 mg 3 times daily, nicotine patch 7 mg applied daily, Toprol-XL 25 mg daily, Ensure E nlive 237 mL daily, Senokot-S 2 at bedtime, Percocet 5/325 one every 6 hours as needed, Desyrel 50 mg at bedtime, sodium chloride 1 g twice daily. Current Functional Status: Currently, Mr. Abraham is able to ambulate 50 feet 3 times and 90 feet tw ice with minimal assistance using a rolling walker. He did self propel a wheelchair 150 feet with mi nimum assistance. Progress Over His Rehabilitation Goals: He is making good progress so far. His goals of becoming in dependent with upper and lower body dressing, transferring to the toilet and shower to doing a shower , and to ambulate 250 feet with minimum assistance to actual with modified independence. Assessment: Mr. 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 D oes have colon cancer status post resection, hypertension, dyslipidemia, gastroesophageal reflux and granulomatous lung nodules. He is making good progress overall with his physical and occupational th erapy. Plan: 1.Continue aggressive and physical and occupational therapy as indicated. Continue Desyrel for insomnia. Sodium tablets for hyponatremia and low blood pressure. Senokot-S fo r constipation, Ensure Enlive for low protein serum and Nicoderm patch for tobacco dependency, Lidode rm patch for pain as appropriate, gabapentin also for pain 300 mg twice daily. Note, he is on multip le narcotics. The attempt will be to cut back. He has been cut back from [place] 10/325 to 7.5/325 ev kandace 6 hours and also we will attempt to cut Percocet as well. He has Celebrex, Lipitor, and aspirin. Plan: Continue all of his medications as indicated in aggressive physical and occupational therapy. Comorbidities That Continue To Impact Rehabilitation Process: He does have significant narcotic use and will cut back on those medications and use gabapentin as a bridge. Will use Lidoderm patch as we ll and he does have tobacco dependency. He is not able to smoke and obviously that we will continue. He will have Nicoderm patch in place. It is likely that he will recover, but may require an extend ed period of time to regain strength of the lower extremities, perhaps even longer and is allowed an acute inpatient rehabilitation and his rehabilitation would likely need to continue. Depending on ho w he is doing, he will recover much better if he can do outpatient physical therapy. LB/MODL Voice ID: [id number] Report ID: [id number]
[2022-07-27] MEDS: ATORVASTATIN 40 MG TAB PO SCH (20:36)
[2022-07-27] MEDS: TRAZODONE 50 MG TABLET PO SCH (20:36)
[2022-07-27] MEDS: ENSURE ENLIVE 237 ML CAN PO SCH (20:37)
[2022-07-28] MEDS: Oxycodone HCl/Acetaminophen 1 TAB TAB PO PRN (04:36)
[2022-07-28] MEDS: METOPROLOL XL 25 MG TAB PO SCH (05:25)
[2022-07-28] MEDS: NICOTINE 7 MG/PAT TD SCH (07:56)
[2022-07-28] MEDS: [UNRECOGNIZED DRUG - OTHER] PO SCH (08:00)
[2022-07-28] MEDS: SODIUM CHLORIDE 1 GM TAB PO SCH ×2 (08:02→17:34)
[2022-07-28] MEDS: CELECOXIB 100 MG CAPSULE PO SCH ×2 (08:02→20:16)
[2022-07-28] MEDS: ASPIRIN 81 MG CHEWABLE TABLET PO SCH (08:02)
[2022-07-28] MEDS: AMLODIPINE 5 MG TAB PO SCH ×2 (08:02→20:15)
[2022-07-28] MEDS: DOCUSATE NA/SENNA CONC 1 TAB PO SCH ×2 (08:03→20:00)
[2022-07-28] MEDS: GABAPENTIN 300 MG CAP PO SCH ×3 (08:03→20:15)
[2022-07-28] MEDS: ENALAPRIL 10 MG TAB PO SCH (08:03)
[2022-07-28] MEDS: HYDROCODONE/APAP 7.5/325 MG TAB PO PRN ×3 (08:07→20:17)
[2022-07-28] MEDS: ENOXAPARIN 40 MG/0.4 ML SQ SCH (08:09)
[2022-07-28] MEDS: LIDOCAINE 4% PATCH TOP SCH (08:15)
[2022-07-28] MEDS: ENSURE ENLIVE 237 ML CAN PO SCH ×2 (08:16→20:16)
[2022-07-28] MEDS: CALCIUM CARBONATE CHEW 500MG TAB PO PRN (12:04)
--- NOTE | 2022-07-28 12:45 | P.CNS ---
Date of Consult: 07/28/22 Reason for Consult: painful toenails Chief Complaint: Painful toenails Allergies morphine Allergy (Verified 07/26/22 13:36) Nausea/Vomiting Home Medications: Amlodipine [Norvasc] 10 mg PO DAILY 06/13/22 Aspirin Chewable [Aspirin Chewable*] 81 mg PO DAILY 06/13/22 Atorvastatin Calcium [Lipitor] 40 mg PO BEDTIME 06/13/22 Enalapril [Vasotec] 10 mg PO DAILY 06/13/22 Acetaminophen [Tylenol] 650 mg PO Q4HP PRN 07/24/22 Bisacodyl [Dulcolax] 5 mg PO DAILY PRN 07/24/22 Celecoxib 100 mg PO BID 07/24/22 Cyclobenzaprine [Flexeril*] 5 mg PO TID 07/24/22 Enoxaparin Sodium [Lovenox 40 MG INJ*] 40 mg SQ DAILY 07/24/22 Gabapentin 300 mg PO BEDTIME 07/24/22 Hydrocodone Bit/Acetaminophen [Hydrocodon-Acetaminophn 10-325] 10 - 325 mg PO Q8H 07/24/22 Insulin Lispro [Humalog*] See Protocol SQ AC 07/24/22 Lidocaine 4% Patch [Lidoderm 5% Patch*] 5 patch TD DAILY 07/24/22 Metoprolol Succinate [Toprol Xl] 25 mg PO DAILY 07/24/22 Nf 5,000 mg PO DAILY 07/24/22 Nicotine [Nicotine Patch] 1 patch TD DAILY 07/24/22 Oxycodone HCl/Acetaminophen [Endocet 5-325 mg Tablet] 5 - 325 mg PO Q6HP PRN MDD 4 07/24/22 Sennosides [Senna] 2 tab PO BID 07/24/22 Sodium Chloride 2,000 mg PO BID 07/24/22 Trazodone [Desyrel*] 50 mg PO BEDTIME 07/24/22 - Past Medical/Surgical History Diabetic: No -: Mild coronary artery disease -: History of resected colon cancer -: Hypertension - Social History Smoking Status: Current every day smoker Alcohol use: Yes CD- Drugs: Yes Caffeine use: Yes Place of Residence: Home Review of Systems 10-point ROS is otherwise unremarkable Physical Examination Temp Pulse Resp BP Pulse Ox 97.3 F 73 18 119/77 99 07/28/22 07:42 07/28/22 08:03 07/28/22 09:07 07/28/22 08:03 07/28/22 09:07 General: Alert, In no apparent distress, Oriented x3 Cardiovascular: No edema, Abnormal pulses (0/4 dp/pt pulses bilateral feet) Capillary refill: >2 Seconds Musculoskeletal: No clubbing, No swelling, No contractures, No erythema, No tenderness, No warmth Integumentary: Other (Thickened hypertrophic toenails with subungual debris x 10, absent hair growth with skin temp warm to cool proximal to distal.) Neurological: Abnormal sensation - Problems (1) Generalized atherosclerosis Current Visit: Yes Status: Acute (2) Tinea unguium Current Visit: Yes Status: Acute Conclusions/Impression: Debridement of nails at bedside. Discussed treatment of fungus. Do not re commend oral antifungal due to potential liver toxicity
[2022-07-28] MEDS: ATORVASTATIN 40 MG TAB PO SCH (20:15)
[2022-07-28] MEDS: TRAZODONE 50 MG TABLET PO SCH (20:15)
--- NOTE | 2022-07-29 00:07 | PN ---
Gvag-Vb-Qlck Progress Note Visit Subjective: Mr. Abraham reports doing well. He does have some difficulty with bowel movements and s aid he only had some small hard stools and is about to get a Fleet enema. Review of Systems: As noted, difficulty with constipation. Otherwise, no fevers, chills, myalgias, arthralgias, rash, h eadache, or weight change. He did have mild nausea that is improving. Physical Examination: Vital Signs: Blood pressure 128/78, pulse 82, respiratory rate 18, temperature 97.2, and oxygen satu ration 97%. General: Mr. Abraham is resting comfortably in bed. Extremities: He is beginning to improve strength and he is feeling much better. He does have some m ild muscle spasms in the lower extremities, otherwise is negative there. Laboratory Studies: No new laboratory studies compared to the last few days. X-ray/imaging: No new x-ray or imaging. Consultations: He was seen by mechanic general operational test, Dr. Austyn Valles who diagnosed him with tinea unguium and performed debridement of the nails at bedside and discussed treatment of fungus, but it was not recom mended to start oral medications due to liver toxicity. Current Functional Status: Currently, Mr. Abraham is able to ambulate 125 feet 4 times and 75 feet t wice with minimal assistance using a rolling walker. Wheelchair mobilization was 180 feet with incre ased strength and supervision. Progress Toward Rehabilitation Goals: He is making great progress towards rehabilitation goals of be coming independent with upper and lower body dressing, transferring, toileting, showering, and ambula ting more than household distances and over 250 to 500 feet, again with dependence. Assessment: Mr. Abraham is a 62-year-old patient admitted to the rehabilitation unit with transverse myelitis who is making very good progress with his physical and occupational therapy. He does have comorbidities with tobacco dependency, some muscle spasms in the back and he does have some heavy jarad cotic dependency and has dyslipidemia. Plan: 1.Aggressive physical and occupational therapy. 2.Continue with comorbid condition medications including gabapentin 300 mg twice daily to help reduc e the need for narcotics. 3.Continue Ensure Enlive for protein supplementation to help him with nutrition. 4.May consider baclofen 5 mg twice daily. Comorbidities That Continue To Impact His Rehabilitation Process: He does have significant narcotic dependency and gabapentin is being used to reduce that. In addition, he will have a Lidoderm patch a s well. He has a nicotine patch for tobacco dependency. GARIMA/YISEL Voice ID: [id number] Report ID: [id number]
[2022-07-29] MEDS: HYDROCODONE/APAP 7.5/325 MG TAB PO PRN ×3 (03:00→20:11)
[2022-07-29] MEDS: METOPROLOL XL 25 MG TAB PO SCH (05:00)
[2022-07-29] MEDS: LIDOCAINE 4% PATCH TOP SCH (07:31)
[2022-07-29] MEDS: NICOTINE 7 MG/PAT TD SCH (07:31)
[2022-07-29] MEDS: CELECOXIB 100 MG CAPSULE PO SCH ×2 (07:33→20:08)
[2022-07-29] MEDS: ENOXAPARIN 40 MG/0.4 ML SQ SCH (07:33)
[2022-07-29] MEDS: DOCUSATE NA/SENNA CONC 1 TAB PO SCH ×2 (07:33→20:06)
[2022-07-29] MEDS: ASPIRIN 81 MG CHEWABLE TABLET PO SCH (07:33)
[2022-07-29] MEDS: AMLODIPINE 5 MG TAB PO SCH ×2 (07:34→20:07)
[2022-07-29] MEDS: SODIUM CHLORIDE 1 GM TAB PO SCH ×2 (07:35→17:31)
[2022-07-29] MEDS: ENALAPRIL 10 MG TAB PO SCH (07:35)
[2022-07-29] MEDS: ENSURE ENLIVE 237 ML CAN PO SCH ×2 (07:42→20:08)
[2022-07-29] MEDS: [UNRECOGNIZED DRUG - OTHER] PO SCH (07:43)
[2022-07-29] MEDS: GABAPENTIN 300 MG CAP PO SCH ×3 (08:58→20:07)
[2022-07-29] MEDS: Oxycodone HCl/Acetaminophen 1 TAB TAB PO PRN (15:00)
[2022-07-29] MEDS: ATORVASTATIN 40 MG TAB PO SCH (20:07)
[2022-07-29] MEDS: TRAZODONE 50 MG TABLET PO SCH (20:07)
--- NOTE | 2022-07-29 21:51 | PN ---
Date of Progress Note: 07/29/2022 Time Of Service: 1:00 p.m. Subjective: Mr. Abraham is doing well. He is having no complaints. He is feeling better and better as his therapy goes on. He has had some better bowel movements. Review of Systems: No recent fevers, chills, nausea, vomiting, myalgias, arthralgias. His GI system is improving as not ed. Physical Examination: Vital Signs: Blood pressure 116/71, pulse 86, respiratory rate 16, temperature 97.6, oxygen saturati on 95%. Pain level did range from 2 up to 7 at most. General: No focal deficits. Lungs: Clear to auscultation. Heart: Regular. Abdomen: Soft. Extremities: He is recovering strength of the lower extremities and sensation as well. Laboratory Studies: Blood sugars did range up to 114. Imaging: No new imaging. Medications: Unchanged. He is on aspirin 81 mg daily, Lipitor 40 mg at bedtime, Norvasc 5 mg twice daily. He has [place] 7.5/325 for pain. He has a nicotine patch, Percocet, Toprol, and lidocaine patc h. Current Functional Status: Currently, Mr. Abraham was able to do supine to sit transfers at standby assistance. Did multiple stand and pivot transfers with contact guard assistance using a rolling wal ker. He ambulated 125 feet with contact guard assistance using a rolling walker and then another 350 feet with contact guard assistance using a rolling walker. Wheelchair mobilization was for 150 feet with supervision. Progress Towards Rehabilitation Goals: He is making very good progress towards his rehabilitation go als of independent upper and lower body dressing, donning and doffing his shoes, transferring to the toilet tub and doing a shower. Also ambulate 500 feet with independence and go up and down 10 steps with independence. Assessment And Plan: Mr. Abraham is a 62-year-old patient admitted to the rehabilitation unit with t ransverse myelitis who is doing well with his physical and occupational therapy. He does have comorb idities which include heavy narcotic dependency, tobacco dependency, hypertension, and dyslipidemia. He is making again good progress. Plan: Continue all the therapy as noted. Continue medications as noted. Comorbidities That Continue To Impact His Rehabilitation Process: At this point, his comorbidities a re well managed and do not stop his rehabilitation process from proceeding very well. LB/MODL Voice ID: [id number] Report ID: [id number]
[2022-07-30] MEDS: HYDROCODONE/APAP 7.5/325 MG TAB PO PRN ×4 (03:38→20:07)
[2022-07-30] MEDS: METOPROLOL XL 25 MG TAB PO SCH (05:36)
[2022-07-30 05:49] LABS: Hematocrit 32.9 % (39.6-49.0); Lymphocytes % 30.9 % (15.3-44.8); MCV 90.3 fL (80-100); RBC Red Blood Cell Count 3.65 M/uL (4.33-5.43)
[2022-07-30 06:16] LABS: Magnesium 1.9 mg/dL (1.6-2.4); Potassium 4.2 mmol/L (3.5-5.1); Prealbumin 29.8 mg/dL (20-40)
[2022-07-30] MEDS: ENOXAPARIN 40 MG/0.4 ML SQ SCH (07:04)
[2022-07-30] MEDS: LIDOCAINE 4% PATCH TOP SCH (07:58)
[2022-07-30] MEDS: SODIUM CHLORIDE 1 GM TAB PO SCH ×2 (07:59→16:45)
[2022-07-30] MEDS: NICOTINE 7 MG/PAT TD SCH (07:59)
[2022-07-30] MEDS: [UNRECOGNIZED DRUG - OTHER] PO SCH (08:00)
[2022-07-30] MEDS: DOCUSATE NA/SENNA CONC 1 TAB PO SCH ×2 (08:08→20:06)
[2022-07-30] MEDS: ASPIRIN 81 MG CHEWABLE TABLET PO SCH (08:08)
[2022-07-30] MEDS: AMLODIPINE 5 MG TAB PO SCH ×2 (08:08→20:07)
[2022-07-30] MEDS: GABAPENTIN 300 MG CAP PO SCH ×3 (08:08→20:07)
[2022-07-30] MEDS: CELECOXIB 100 MG CAPSULE PO SCH ×2 (08:09→20:07)
[2022-07-30] MEDS: ENSURE ENLIVE 237 ML CAN PO SCH ×2 (10:28→20:15)
[2022-07-30] MEDS: ENALAPRIL 10 MG TAB PO SCH (11:59)
[2022-07-30] MEDS: HYDROCORTISONE 1 % CREAM 30GM TOP PRN (16:45)
[2022-07-30] MEDS: TRAZODONE 50 MG TABLET PO SCH (20:07)
[2022-07-30] MEDS: ATORVASTATIN 40 MG TAB PO SCH (20:08)
--- NOTE | 2022-07-30 22:14 | PN ---
Date of Progress Note: 07/30/[address] [facility] Visit Time Of Service: 1 p.m. Subjective: Mr. Abraham is doing very well. He has no new complaints. He keeps feeling better day by day. Review of Systems: No fevers, chills, nausea, vomiting, myalgias, or arthralgias. No rash, headache, or weight change. No psychiatric complaints. Physical Examination: Vital Signs: Blood pressure 130/79, pulse 84, respiratory rate 16, temperature 94.7, and oxygen satu ration 100%. General: Mr. Abraham is doing well. He is improving in his sensation in the lower extremities and s trength bilaterally. Laboratory Studies: White blood cell count 6.4, hemoglobin 11.4, and platelets 196. Chemistries: S odium 137, potassium 4.2, chloride 108, carbon dioxide 24, BUN 19, creatinine 0.76, glucose 102, calc ium 9.1, magnesium 1.9, albumin 3.1, and prealbumin 29.8. X-ray/Imaging: None. Medications: Tylenol 650 every 4 hours as needed, [place] 7.5/325 every 6 hours as needed, Norvasc 5 m g twice daily, aspirin 81 mg daily, Lipitor 40 mg at bedtime, Dulcolax 10 mg per rectum as needed, Tu ms 500 mg 4 times daily as needed, Celebrex 100 mg twice daily, Flexeril 5 mg 3 times daily as needed , Vasotec 10 mg daily, Lovenox 40 mg subcutaneously daily, gabapentin 300 mg 3 times daily, Toprol-XL 25 mg daily, nicotine patch 7 mg transdermal daily, lidocaine patch 2 patches actually to the ankles where he did state he did have some pain daily, Ensure Enlive 237 mL twice daily, Percocet as needed , Senokot-S 2 tablets twice daily, and trazodone 50 mg at night for insomnia. Current Functional Status: Currently he did ambulate 250 feet 3 times with contact guard assistance using a rolling walker and another 150 feet twice with contact guard assistance using a rolling walke r. He self propelled wheelchair 150 feet with supervision, sit to supine transfers are independently done. Progress Towards Rehabilitation Goals: He is making excellent progress towards his rehabilitation go als. His goals are to become independent with upper and lower body dressing, toileting, transferring , and ambulating over 500 feet with dependence. Assessment: Mr. Abraham is a 62-year-old patient in the rehabilitation unit with transverse myelitis . He is recovering very well in terms of his strength and sensation in the lower extremities. He do es have some ankle pain, which is improving. He does have tobacco dependency, hypertension, and dysl ipidemia and those are medicated with medications as noted. Plan: 1.Continue with physical and occupational therapy. 2.Continue with aggressive management of his comorbid conditions. Comorbidities That Continue To Impact His Rehabilitation Process: At this point, he is doing well an d there are no comorbidities that negatively impact his rehabilitation. GARIMA/MODHira Voice ID: [id number] Report ID: [id number]
[2022-07-31] MEDS: HYDROCODONE/APAP 7.5/325 MG TAB PO PRN ×4 (02:46→19:08)
[2022-07-31] MEDS: METOPROLOL XL 25 MG TAB PO SCH (05:21)
[2022-07-31] MEDS: DOCUSATE NA/SENNA CONC 1 TAB PO SCH ×2 (07:56→19:43)
[2022-07-31] MEDS: AMLODIPINE 5 MG TAB PO SCH ×2 (07:57→19:43)
[2022-07-31] MEDS: CELECOXIB 100 MG CAPSULE PO SCH ×2 (07:58→19:42)
[2022-07-31] MEDS: ASPIRIN 81 MG CHEWABLE TABLET PO SCH (07:58)
[2022-07-31] MEDS: NICOTINE 7 MG/PAT TD SCH (07:58)
[2022-07-31] MEDS: SODIUM CHLORIDE 1 GM TAB PO SCH ×2 (07:58→17:18)
[2022-07-31] MEDS: ENALAPRIL 10 MG TAB PO SCH (08:00)
[2022-07-31] MEDS: [UNRECOGNIZED DRUG - OTHER] PO SCH (08:00)
[2022-07-31] MEDS: ENOXAPARIN 40 MG/0.4 ML SQ SCH (08:00)
[2022-07-31] MEDS: GABAPENTIN 300 MG CAP PO SCH ×2 (08:00→19:43)
[2022-07-31] MEDS: LIDOCAINE 4% PATCH TOP SCH (08:01)
[2022-07-31] MEDS: ENSURE ENLIVE 237 ML CAN PO SCH ×2 (08:02→19:42)
--- NOTE | 2022-07-31 09:06 | P.RH.PN ---
Estimated Length of Stay: 12 Expected Discharge Date: 08/04/22 Discharge Disposition Plan: Home Family Support: Yes Longterm Goal: Mobility, Transfers, Self Care Vital Signs: Last Vital Signs Temp 97.6 F 07/31/22 07:51 Pulse 75 07/31/22 08:00 Resp 14 07/31/22 08:35 BP 117/77 07/31/22 08:00 Pulse Ox 97 07/31/22 08:35 Laboratory: Laboratory Last Values WBC 6.40 K/uL (4.3-10.9) 07/30/22 05:08 RBC 3.65 M/uL (4.33-5.43) L 07/30/22 05:08 Hgb 11.4 g/dL (13.6-17.9) L 07/30/22 05:08 Hct 32.9 % (39.6-49.0) L 07/30/22 05:08 MCV 90.3 fL (80-100) 07/30/22 05:08 MCH 31.2 pg (27.0-35.0) 07/30/22 05:08 MCHC 34.6 g/dL (32.0-36.0) 07/30/22 05:08 RDW 13.6 % (12.1-15.2) 07/30/22 05:08 Plt Count 196 K/uL (152-406) 07/30/22 05:08 MPV 7.0 fL (7.6-11.3) L 07/30/22 05:08 Neutrophils % 50.4 % (41.7-73.7) 07/30/22 05:08 Lymphocytes % 30.9 % (15.3-44.8) 07/30/22 05:08 Monocytes % 12.7 % (3.3-12.3) H 07/30/22 05:08 Eosinophils % 5.4 % (0-4.4) H 07/30/22 05:08 Basophils % 0.6 % (0-1.3) 07/30/22 05:08 Absolute Neutrophils 3.2 K/uL (1.8-8.0) 07/30/22 05:08 Absolute Lymphocytes 2.0 K/uL (0.7-4.9) 07/30/22 05:08 Absolute Monocytes 0.8 K/uL (0.1-1.3) 07/30/22 05:08 Absolute Eosinophils 0.3 K/uL (0-0.5) 07/30/22 05:08 Absolute Basophils 0.0 K/uL (0-0.5) 07/30/22 05:08 Sodium 137 mmol/L (136-145) 07/30/22 05:08 Potassium 4.2 mmol/L (3.5-5.1) 07/30/22 05:08 Chloride 108 mmol/L (98-107) H 07/30/22 05:08 Carbon Dioxide 24 mmol/L (21-32) 07/30/22 05:08 Anion Gap 9.2 mEq/L (5.0-15.0) 07/30/22 05:08 BUN 19 mg/dL (7-18) H 07/30/22 05:08 Creatinine 0.76 mg/dL (0.70-1.30) 07/30/22 05:08 Est GFR (CKD-EPI) 102 ml/min (=/>90) 07/30/22 05:08 Glucose 102 mg/dL (74-106) 07/30/22 05:08 POC Glucose 114 mg/dL (65-120) 07/25/22 16:13 Calcium 9.1 mg/dL (8.5-10.1) 07/30/22 05:08 Magnesium 1.9 mg/dL (1.6-2.4) 07/30/22 05:08 Albumin 3.1 g/dL (3.4-5.0) L 07/29/22 20:54 Prealbumin 29.8 mg/dL (20-40) 07/30/22 05:08 Urine Color Light-yellow (Yellow) 07/24/22 19:55 Urine Clarity Clear (Clear) 07/24/22 19:55 Urine pH 7.0 (5.0-7.0) 07/24/22 19:55 Ur Specific [place] 1.008 (1.005-1.030) 07/24/22 19:55 Glucose (UA)(Auto) Negative (Negative) 07/24/22 19:55 Urine Ketones Negative (Negative) 07/24/22 19:55 Urine Blood Negative (Negative) 07/24/22 19:55 Urine Nitrite Negative (Negative) 07/24/22 19:55 Urine Bilirubin Negative (Negative) 07/24/22 19:55 Urine Urobilinogen Normal (Normal) 07/24/22 19:55 Ur Leukocyte Esterase Negative Talib/uL (Negative) 07/24/22 19:55 Urine RBC <5 /HPF (None Seen) 07/24/22 19:55 Urine WBC <5 /HPF (<5) 07/24/22 19:55 Ur Squamous Epith Cells None seen /HPF (None Seen) 07/24/22 19:55 Urine Bacteria None seen /HPF (<20) 07/24/22 19:55 Urine Culture Reflexed Not needed 07/24/22 19:55 Urine Total Protein Negative (Negative) 07/24/22 19:55 SARS-CoV-2 Rap RNA(RT-PCR) Negative (NEGATIVE) 07/31/22 04:33 Weight: 151 lb Wound Present: No Closed Surgical Incision Present: No Negative Pressure Wound Therapy Present: No Physician Update: Labs reviewed and are stable. He is likely dependent on norcotics with gabapentin. He is voicing suicidal ideation withto the occupational therapist. Will get psychiatry involved. He has no resorces but may have to explore Medicaid pending. Walking 250' with SBA with a goal of independence. He is unsafe with toileting due to rushing. Increase gabapentin to 600 mg twice daily. Summary: Patient's care plan and technician terminal and repeater goals have been reviewed and revised as necessary. Please see the Rehabilitation Signature page for all necessary signatures.
[2022-07-31] MEDS: TRAZODONE 50 MG TABLET PO SCH (19:44)
[2022-07-31] MEDS: ATORVASTATIN 40 MG TAB PO SCH (19:44)
[2022-08-01] MEDS: HYDROCODONE/APAP 7.5/325 MG TAB PO PRN ×4 (02:11→21:55)
[2022-08-01] MEDS: METOPROLOL XL 25 MG TAB PO SCH (05:14)
[2022-08-01] MEDS: LIDOCAINE 4% PATCH TOP SCH (07:27)
[2022-08-01] MEDS: NICOTINE 7 MG/PAT TD SCH (07:28)
[2022-08-01] MEDS: ENOXAPARIN 40 MG/0.4 ML SQ SCH (07:28)
[2022-08-01] MEDS: AMLODIPINE 5 MG TAB PO SCH ×2 (07:30→20:02)
[2022-08-01] MEDS: DOCUSATE NA/SENNA CONC 1 TAB PO SCH ×2 (07:30→20:00)
[2022-08-01] MEDS: CELECOXIB 100 MG CAPSULE PO SCH ×2 (07:31→20:02)
[2022-08-01] MEDS: GABAPENTIN 300 MG CAP PO SCH ×2 (07:31→20:02)
[2022-08-01] MEDS: ASPIRIN 81 MG CHEWABLE TABLET PO SCH (07:31)
[2022-08-01] MEDS: [UNRECOGNIZED DRUG - OTHER] PO SCH (07:32)
[2022-08-01] MEDS: ENSURE ENLIVE 237 ML CAN PO SCH ×2 (07:45→20:02)
[2022-08-01] MEDS: ENALAPRIL 10 MG TAB PO SCH (07:45)
[2022-08-01] MEDS: SODIUM CHLORIDE 1 GM TAB PO SCH ×2 (08:20→17:17)
[2022-08-01] MEDS: HYDROCORTISONE 1 % CREAM 30GM TOP PRN (10:57)
[2022-08-01] MEDS: ATORVASTATIN 40 MG TAB PO SCH (20:02)
[2022-08-01] MEDS: TRAZODONE 50 MG TABLET PO SCH (20:02)
[2022-08-02] MEDS: HYDROCODONE/APAP 7.5/325 MG TAB PO PRN ×3 (04:30→19:16)
[2022-08-02] MEDS: METOPROLOL XL 25 MG TAB PO SCH (05:19)
[2022-08-02] MEDS: ENOXAPARIN 40 MG/0.4 ML SQ SCH (07:20)
[2022-08-02] MEDS: [UNRECOGNIZED DRUG - OTHER] PO SCH (08:00)
[2022-08-02] MEDS: LIDOCAINE 4% PATCH TOP SCH (08:10)
[2022-08-02] MEDS: DOCUSATE NA/SENNA CONC 1 TAB PO SCH ×2 (08:10→19:17)
[2022-08-02] MEDS: ASPIRIN 81 MG CHEWABLE TABLET PO SCH (08:11)
[2022-08-02] MEDS: AMLODIPINE 5 MG TAB PO SCH ×2 (08:11→19:25)
[2022-08-02] MEDS: CELECOXIB 100 MG CAPSULE PO SCH ×2 (08:11→19:16)
[2022-08-02] MEDS: GABAPENTIN 300 MG CAP PO SCH ×2 (08:12→19:16)
[2022-08-02] MEDS: SODIUM CHLORIDE 1 GM TAB PO SCH (08:12)
[2022-08-02] MEDS: NICOTINE 7 MG/PAT TD SCH (08:12)
[2022-08-02] MEDS: ENSURE ENLIVE 237 ML CAN PO SCH ×2 (08:13→19:16)
[2022-08-02] MEDS: ENALAPRIL 10 MG TAB PO SCH (10:34)
[2022-08-02] MEDS: ATORVASTATIN 40 MG TAB PO SCH (19:16)
[2022-08-02] MEDS: TRAZODONE 50 MG TABLET PO SCH (19:16)
[2022-08-03 03:51] LABS: Specific Gravity 1.008 (1.005-1.030); Urine Bacteria None Seen /HPF (<20); Urine Bilirubin NEGATIVE (Negative); Urine Blood Negative (Negative); Urine Clarity Clear (Clear); Urine Color Light-Yellow (Yellow); Urine Glucose NEGATIVE (Negative); Urine Protein NEGATIVE (Negative); Urine RBC <5 /HPF (None Seen); Urine Urobilinogen Normal (Normal)
[2022-08-03] MEDS: METOPROLOL XL 25 MG TAB PO SCH (05:11)
[2022-08-03] MEDS: HYDROCODONE/APAP 7.5/325 MG TAB PO PRN ×3 (05:17→19:23)
[2022-08-03] MEDS ORDERED: BISACODYL 10 MG RECTAL SUPP PR PRN (06:55)
[2022-08-03] MEDS: ENOXAPARIN 40 MG/0.4 ML SQ SCH (07:23)
[2022-08-03] MEDS: [UNRECOGNIZED DRUG - OTHER] PO SCH (08:00)
[2022-08-03 08:07] LABS: Absolute Lymphocytes (CBC) 1.8 K/uL (0.7-4.9); Hematocrit 33.3 % (39.6-49.0); Lymphocytes % 25.2 % (15.3-44.8); MCV 90.3 fL (80-100); MPV 6.8 fL (7.6-11.3); RBC Red Blood Cell Count 3.68 M/uL (4.33-5.43)
[2022-08-03] MEDS: LIDOCAINE 4% PATCH TOP SCH (08:10)
[2022-08-03] MEDS: DOCUSATE NA/SENNA CONC 1 TAB PO SCH ×2 (08:10→19:24)
[2022-08-03] MEDS: GABAPENTIN 300 MG CAP PO SCH ×2 (08:11→19:24)
[2022-08-03] MEDS: NICOTINE 7 MG/PAT TD SCH (08:11)
[2022-08-03] MEDS: ASPIRIN 81 MG CHEWABLE TABLET PO SCH (08:11)
[2022-08-03] MEDS: SODIUM CHLORIDE 1 GM TAB PO SCH (08:12)
[2022-08-03] MEDS: CELECOXIB 100 MG CAPSULE PO SCH ×2 (08:12→19:25)
[2022-08-03] MEDS: AMLODIPINE 5 MG TAB PO SCH ×2 (08:12→19:25)
[2022-08-03 08:14] LABS: Potassium 4.4 mmol/L (3.5-5.1)
[2022-08-03] MEDS: CALCIUM CARBONATE CHEW 500MG TAB PO PRN (08:47)
[2022-08-03] MEDS: ENALAPRIL 10 MG TAB PO SCH (11:01)
[2022-08-03] MEDS: ENSURE ENLIVE 237 ML CAN PO SCH ×2 (11:02→19:25)
[2022-08-03] MEDS: POLYETHYL GLY 3350 17 GM/DOSE PO SCH (11:39)
[2022-08-03] MEDS: HYDROCORTISONE 1 % CREAM 30GM TOP PRN (15:09)
[2022-08-03] MEDS: TRAZODONE 50 MG TABLET PO SCH (19:24)
[2022-08-03] MEDS: ATORVASTATIN 40 MG TAB PO SCH (19:24)
--- NOTE | 2022-08-03 22:57 | PN ---
Date of Progress Note: 08/03/2022 [facility] Visit Time Of Service: 1:30 p.m. Subjective: Mr. Abraham is in his room, doing well. He has no new complaints. He keeps feeling muc h better with each day of therapy. Review of Systems: No fevers, chills, nausea, or vomiting. No significant myalgias, arthralgias, or rash. Physical Examination: Vital Signs: Blood pressure 119/76, pulse 73, respiratory rate 16, temperature 97.4, and oxygen satu ration 98%. General: Mr. Abraham is resting in a chair near his bed. He is in no acute distress. No complaints . Extremities: He does have improving strength and sensation in the lower extremities. Denies any sig nificant spasms in the lower extremities. Laboratory Studies: His white blood cell count today was 7.3, hemoglobin 11.4, and platelets 203. C hemistries: Sodium 136, potassium 4.4, chloride 104, carbon dioxide 28, BUN 17, creatinine 0.7, gluc ose was 108, and calcium 9.4. Repeat urinalysis completely normal. X-ray/imaging: None. Medications: [place] 7.5/325 every 6 hours as needed, Norvasc 5 mg twice daily, aspirin 81 mg daily, L ipitor 40 mg at bedtime, Dulcolax 10 mg per rectum for constipation as needed, Tums 500 mg every 6 ho urs as needed, Celebrex 100 mg twice daily, Flexeril 5 mg 3 times daily as needed, Vasotec 10 mg reyna y, Lovenox 40 mg subcutaneously daily, gabapentin 600 mg twice daily, lidocaine 4% 2 patches daily, T oprol 25 mg daily, Nicoderm patch 7 mg daily, Senokot-S 2 at bedtime, and trazodone 50 mg at bedtime. Current Functional Status: Currently Mr. Abraham is able to ambulate 250 feet, 175 feet 3 times, and 150 feet with standby assist to independence using a rolling walker. He ascended and descended a 4 inch platform with standby assistance using a rolling walker. He did [id number] transfers independ ently with a rolling walker. He did stand and pivot transfers independently with a rolling walker. Progress Towards Rehabilitation Goals: He is making excellent progress towards his rehabilitation go als of becoming independent with upper and lower body dressing, transferring, ambulating over 500 fee t with independence, and again performing all activities of daily living with independence. Assessment: Mr. Abraham is a 62-year-old patient admitted to rehabilitation unit with transverse mye litis. He is making excellent progress in terms of recovering his strength, sensation, coordination, balance, and gait. He does have comorbid tobacco dependence, hypertension, and dyslipidemia and tho se are well managed. He has no complaints and is improving daily. Plan: 1.Continue physical and occupational therapy. 2.Continue management of his comorbid conditions as listed above with medications as noted. Comorbidities That Continue To Impact Rehabilitation Process: At this point, none of his comorbid co nditions do negatively impact his rehabilitation. GARIMA/YISEL Voice ID: [id number] Report ID: [id number]
[2022-08-04] MEDS: METOPROLOL XL 25 MG TAB PO SCH (05:19)
[2022-08-04] MEDS: HYDROCODONE/APAP 7.5/325 MG TAB PO PRN ×3 (05:24→19:18)
[2022-08-04] MEDS: ENOXAPARIN 40 MG/0.4 ML SQ SCH (07:37)
[2022-08-04] MEDS: SODIUM CHLORIDE 1 GM TAB PO SCH (07:56)
[2022-08-04] MEDS: AMLODIPINE 5 MG TAB PO SCH ×2 (07:57→19:17)
[2022-08-04] MEDS: GABAPENTIN 300 MG CAP PO SCH ×2 (07:57→19:17)
[2022-08-04] MEDS: CELECOXIB 100 MG CAPSULE PO SCH ×2 (07:57→19:17)
[2022-08-04] MEDS: LIDOCAINE 4% PATCH TOP SCH (07:58)
[2022-08-04] MEDS: NICOTINE 7 MG/PAT TD SCH (07:58)
[2022-08-04] MEDS: POLYETHYL GLY 3350 17 GM/DOSE PO SCH (07:58)
[2022-08-04] MEDS: DOCUSATE NA/SENNA CONC 1 TAB PO SCH ×2 (07:59→19:17)
[2022-08-04] MEDS: ASPIRIN 81 MG CHEWABLE TABLET PO SCH (07:59)
[2022-08-04] MEDS: [UNRECOGNIZED DRUG - OTHER] PO SCH (08:00)
[2022-08-04] MEDS: ENSURE ENLIVE 237 ML CAN PO SCH ×2 (08:01→19:18)
[2022-08-04] MEDS: ENALAPRIL 10 MG TAB PO SCH (11:18)
[2022-08-04] MEDS: ATORVASTATIN 40 MG TAB PO SCH (19:18)
[2022-08-04] MEDS: TRAZODONE 50 MG TABLET PO SCH (19:18)
--- NOTE | 2022-08-05 00:33 | PN ---
Date of Progress Note: 08/04/2022 [facility] Progress Note Visit Time Of Service: 1:30 p.m. Subjective: Mr. Abraham is doing well and he continues to do better day by day. He reports though h is ankles are his biggest complaint in terms of pain, but that is improving. Pain can get up to abou t 6 and best to around 2 to 3. Review of Systems: He noted some ankle pain bilaterally. Otherwise, no fevers, chills, nausea, vomiting, or rash. Physical Examination: Vital Signs: Blood pressure 130/80, pulse 72, respiratory rate 16, and temperature 97.9. General: Mr. Abraham is resting comfortably in no significant distress. Neurologic: He had some diffuse weakness in lower extremity that is improving. Laboratory Studies: He has blood work that is not new today. He had blood work yesterday that is es sentially normal. Electrolyte panel and complete blood count with differential remarkable for a hemo globin of 11.1, otherwise unremarkable. X-ray/imaging: No new x-ray or imaging. Medications: Tylenol 650 and [place] 7.5/325 every 6 hours as needed, Norvasc 5 mg twice daily, aspiri n 81 mg daily, Lipitor 40 mg at bedtime, Dulcolax 10 per rectum as needed, Celebrex 100 mg twice reyna y, Vasotec 10 mg daily, Tums 500 mg every 4 hours as needed, Lovenox 40 mg subcutaneously daily, siomara pentin 600 mg twice daily, Toprol-XL 25 mg daily, Nicoderm patch 7 mg daily, Ensure Enlive 237 mL twi ce daily, Senokot-S 2 tabs at bedtime, and trazodone 50 mg at bedtime. Current Functional Status: Currently, he did ambulate 350 feet 3 times with contact guard assistance using a rolling walker. He displays heel strike and movements. He is able to display improvement i n motor control. It is slightly better and has softer landing. The therapist noted he was feeling m uch better. He also ambulated another 250 feet twice and another 125 feet with standby assist and in dependence using a rolling walker. [id number] transfers were done independently. Multiple stand and pivot transfers done independently with a rolling walker. Progress Towards Rehabilitation Goals: He is making very good progress towards his rehabilitation go als of becoming independent with ambulation over 500 feet with upper and lower body dressing, with to ileting, and transferring. Assessment: Mr. Abraham is a 62-year-old patient in the rehabilitation unit with transverse myelitis who is making excellent progress in terms of his recovery of strength, sensation, coordination, gait , and balance. His comorbidities are hypertension, dyslipidemia, and tobacco dependency and those ar e doing very well. Plan: 1.Continue physical and occupational therapy. 2.Continue with medications as listed for his comorbid conditions and those are listed above and hav e not changed. Comorbidities That Continue To Impact His Rehabilitation Process: At this point, he does not have an y significant negatives in terms of conditions impacting his rehabilitation process and he is doing v kandace well. GARIMA/YISEL Voice ID: [id number] Report ID: [id number]
[2022-08-05] MEDS: METOPROLOL XL 25 MG TAB PO SCH (05:27)
[2022-08-05] MEDS: HYDROCODONE/APAP 7.5/325 MG TAB PO PRN ×3 (05:31→18:54)
[2022-08-05] MEDS: ENOXAPARIN 40 MG/0.4 ML SQ SCH (07:16)
[2022-08-05] MEDS: [UNRECOGNIZED DRUG - OTHER] PO SCH (08:00)
[2022-08-05] MEDS: NICOTINE 7 MG/PAT TD SCH (08:33)
[2022-08-05] MEDS: GABAPENTIN 300 MG CAP PO SCH ×2 (08:33→19:50)
[2022-08-05] MEDS: LIDOCAINE 4% PATCH TOP SCH (08:33)
[2022-08-05] MEDS: POLYETHYL GLY 3350 17 GM/DOSE PO SCH (08:33)
[2022-08-05] MEDS: SODIUM CHLORIDE 1 GM TAB PO SCH (08:34)
[2022-08-05] MEDS: ASPIRIN 81 MG CHEWABLE TABLET PO SCH (08:34)
[2022-08-05] MEDS: CELECOXIB 100 MG CAPSULE PO SCH ×2 (08:34→19:50)
[2022-08-05] MEDS: AMLODIPINE 5 MG TAB PO SCH ×2 (08:34→19:50)
[2022-08-05] MEDS: ENSURE ENLIVE 237 ML CAN PO SCH ×2 (08:38→19:51)
[2022-08-05] MEDS: DOCUSATE NA/SENNA CONC 1 TAB PO SCH ×2 (12:37→19:50)
[2022-08-05] MEDS: ENALAPRIL 10 MG TAB PO SCH (12:37)
[2022-08-05] MEDS: TRAZODONE 50 MG TABLET PO SCH (19:50)
[2022-08-05] MEDS: ATORVASTATIN 40 MG TAB PO SCH (19:50)
--- NOTE | 2022-08-05 22:06 | PN ---
Date of Progress Note: 08/05/2022 [facility] Progress Note Time Of Service: 1 p.m. Subjective: Mr. Abraham is in his room. He is doing better. He reports some pain in the ankles and swelling in the legs, but no significant change from yesterday. Review of Systems: No recent fever, chills, myalgias or arthralgias except as mentioned in his lower extremity. No naus ea or vomiting. Physical Examination: Vital Signs: Blood pressure 134/79, pulse 82, respiratory rate 15, and temperature 97. Heart: Regular. Chest: Clear. Abdomen: Soft. Extremities: He has trace edema in the lower extremities, although he feels it is more than that. I n terms of his strength, he has diffuse weakness and incoordination in lower extremities, but that is improving. Laboratory Studies: No new laboratory studies. X-ray/imaging: No new x-ray or imaging. Medications: Unchanged and are listed in yesterday's notes. Current Functional Status: Apparently, he was instructed on the proper way to ascend and descend sta irs. He was able to do 15 stairs with standby assistance and ambulated independently around 150 feet . In addition, he did 350 five times with contact guard assistance using a rolling walker. He went up and down sidewalks with a rolling walker and did ascend a 4 inch platform with standby assistance using a rolling walker with 8 trials. Progress Towards Rehabilitation Goals: He is making excellent progress towards his goals of becoming independent with his ability to transfer, ambulate now 350 to 500 feet with independence, up and ynes n steps with dependence, up and down curbs with independence, upper and lower body dressing also with independence and is doing very well with that. Assessment: Mr. Abraham is a 62-year-old patient admitted with transverse myelitis and is doing very well with recovery of strength, coordination, and poor balance. He has dyslipidemia, hypertension, and tobacco dependency and those are stable. Plan: Continue with physical and occupational therapy. Medications: We will continue including Norvasc 5 mg daily, Toprol 25 mg daily for hypertension, Desy rel 50 mg daily at bedtime for insomnia, Senakot-S 2 tabs twice daily for constipation, nicotine patc h 7 mg daily, lidocaine patch to the ankles daily, Lipitor 40 mg at bedtime for dyslipidemia, aspirin 81 mg daily for stroke risk reduction, and Lovenox 40 mg subcu daily for DVT risk reduction. Comorbid Conditions That Continue To Impact Rehabilitation Process: He is doing very well and none o f his comorbid conditions prohibit him from improving significantly in rehabilitation. GARIMA/YISEL Voice ID: [id number] Report ID: [id number]
[2022-08-06] MEDS: HYDROCODONE/APAP 7.5/325 MG TAB PO PRN ×3 (04:18→20:18)
[2022-08-06 04:29] LABS: Absolute Lymphocytes (CBC) 2.3 K/uL (0.7-4.9); Hematocrit 31.5 % (39.6-49.0); Lymphocytes % 34.3 % (15.3-44.8); MPV 6.8 fL (7.6-11.3); RBC Red Blood Cell Count 3.49 M/uL (4.33-5.43)
[2022-08-06 04:42] LABS: Albumin 3.1 g/dL (3.4-5.0); Magnesium 1.9 mg/dL (1.6-2.4); Potassium 4.7 mmol/L (3.5-5.1); Prealbumin 26.3 mg/dL (20-40)
[2022-08-06] MEDS: METOPROLOL XL 25 MG TAB PO SCH (05:13)
[2022-08-06] MEDS: [UNRECOGNIZED DRUG - OTHER] PO SCH (08:00)
[2022-08-06] MEDS: ENSURE ENLIVE 237 ML CAN PO SCH ×2 (08:30→20:19)
[2022-08-06] MEDS: LIDOCAINE 4% PATCH TOP SCH (08:54)
[2022-08-06] MEDS: NICOTINE 7 MG/PAT TD SCH (08:54)
[2022-08-06] MEDS: ENOXAPARIN 40 MG/0.4 ML SQ SCH (08:56)
[2022-08-06] MEDS: SODIUM CHLORIDE 1 GM TAB PO SCH (08:57)
[2022-08-06] MEDS: AMLODIPINE 5 MG TAB PO SCH ×2 (08:57→20:18)
[2022-08-06] MEDS: GABAPENTIN 300 MG CAP PO SCH ×2 (08:57→20:18)
[2022-08-06] MEDS: POLYETHYL GLY 3350 17 GM/DOSE PO SCH (08:57)
[2022-08-06] MEDS: DOCUSATE NA/SENNA CONC 1 TAB PO SCH ×2 (08:57→20:18)
[2022-08-06] MEDS: ASPIRIN 81 MG CHEWABLE TABLET PO SCH (08:57)
[2022-08-06] MEDS: CELECOXIB 100 MG CAPSULE PO SCH ×2 (08:58→20:18)
[2022-08-06] MEDS: ENALAPRIL 10 MG TAB PO SCH (08:58)
[2022-08-06] MEDS: TRAZODONE 50 MG TABLET PO SCH (20:18)
[2022-08-06] MEDS: ATORVASTATIN 40 MG TAB PO SCH (20:18)
--- NOTE | 2022-08-07 02:54 | PN ---
Date of Progress Note: 08/06/2022 [facility] Progress Note Visit Time Of Service: 1 p.m. Subjective: Mr. Abraham is doing well in his room. He does report [id number] ankle pain and sw elling in the leg, but no changes. Review of Systems: No fevers or chills. No significant myalgias, arthralgias, rash, headache, or weight change. Physical Examination: Vital Signs: Blood pressure 122/67, pulse 89, respiratory rate 16, temperature 97.2, and oxygen satu ration 99%. General: Mr. Abraham is sitting in a chair besides his bed. He is in no significant distress. HEENT: Normocephalic, atraumatic. Sclerae anicteric. Oropharynx is pink and moist. Neck: Supple. Chest: Clear. Extremities: No edema or cyanosis except for trace in the ankles. The patient does report he feels there is no edema. Laboratory Studies: White blood cell count 6.7, hemoglobin 10.9, and platelets 190. Sodium 137, pot assium 4.7, chloride 103, carbon dioxide 29, BUN 17, creatinine 0.8, prealbumin 26.3, albumin 3.1. Aashish juarez has had 2 negative COVID-19 tests on and . X-ray/imaging: None. Medications: Aspirin 81 mg daily, Lipitor 40 mg at bedtime, Norvasc 5 mg twice daily, [place] 7.5/325 every 6 hours as needed, Lovenox 40 mg subcutaneously daily, nicotine patch 7 mg daily, Toprol-XL 25 mg daily, and Desyrel 50 mg at night for insomnia. Current Functional Status: Currently, Mr. Abraham was able to ambulate 150 feet, 250 twice, another 555 feet with contact guard to standby assistance using a rolling walker. He ambulated 350 feet with standby assistance. He did ascend and descend a 4 inch platform with standby assistance using a rol ling walker and he did that 5 times. Progress Made With Physical Therapy: He is making excellent progress and was independent in all of h is activities of transferred from bed to chair to toilet to shower and mobilized 500 feet towards ind ependence with that. Assessment: Mr. Abraham is a 62-year-old patient with transverse myelitis who is doing well with rec overy of his strength, sensation, coordination, and balance. Comorbidities include dyslipidemia, hyp ertension, tobacco dependence. Plan: 1.Continue with physical and occupational therapy. 2.Continue aggressive management of dyslipidemia and hypertension. 3.Continue management of his ankle pain with pain patches. 4.Continue with Senokot for constipation. 5.Continue with Lipitor for dyslipidemia. 6.Continue with Lovenox for DVT prophylaxis. Comorbidities That With Continue To Impact Rehabilitation: He is doing well and at this point, all o f his comorbidities are managed and do not stop him from recovering very well. GARIMA/MODL Voice ID: [id number] Report ID: [id number]
[2022-08-07] MEDS: HYDROCODONE/APAP 7.5/325 MG TAB PO PRN ×4 (04:21→20:48)
[2022-08-07] MEDS: METOPROLOL XL 25 MG TAB PO SCH (05:19)
[2022-08-07] MEDS: DOCUSATE NA/SENNA CONC 1 TAB PO SCH ×2 (07:37→19:31)
[2022-08-07] MEDS: GABAPENTIN 300 MG CAP PO SCH ×2 (07:38→19:31)
[2022-08-07] MEDS: ASPIRIN 81 MG CHEWABLE TABLET PO SCH (07:38)
[2022-08-07] MEDS: ENOXAPARIN 40 MG/0.4 ML SQ SCH (07:38)
[2022-08-07] MEDS: AMLODIPINE 5 MG TAB PO SCH ×2 (07:38→19:32)
[2022-08-07] MEDS: CELECOXIB 100 MG CAPSULE PO SCH ×2 (07:38→19:31)
[2022-08-07] MEDS: NICOTINE 7 MG/PAT TD SCH (07:39)
[2022-08-07] MEDS: ENALAPRIL 10 MG TAB PO SCH (07:39)
[2022-08-07] MEDS: [UNRECOGNIZED DRUG - OTHER] PO SCH (07:40)
[2022-08-07] MEDS: LIDOCAINE 4% PATCH TOP SCH (07:40)
[2022-08-07] MEDS: POLYETHYL GLY 3350 17 GM/DOSE PO SCH (07:40)
[2022-08-07] MEDS: ENSURE ENLIVE 237 ML CAN PO SCH ×2 (07:59→19:31)
--- NOTE | 2022-08-07 09:17 | P.RH.PN ---
Estimated Length of Stay: 12 Expected Discharge Date: 08/11/22 Discharge Disposition Plan: Home Family Support: Yes Fdc Goal: Mobility, Transfers, Self Care Vital Signs: Last Vital Signs Temp 97 F 08/07/22 06:30 Pulse 75 08/07/22 07:39 Resp 16 08/07/22 07:47 BP 146/83 H 08/07/22 07:39 Pulse Ox 100 08/07/22 07:47 Laboratory: Laboratory Last Values WBC 6.70 K/uL (4.3-10.9) 08/06/22 04:06 RBC 3.49 M/uL (4.33-5.43) L 08/06/22 04:06 Hgb 10.9 g/dL (13.6-17.9) L 08/06/22 04:06 Hct 31.5 % (39.6-49.0) L 08/06/22 04:06 MCV 90.0 fL (80-100) 08/06/22 04:06 MCH 31.2 pg (27.0-35.0) 08/06/22 04:06 MCHC 34.6 g/dL (32.0-36.0) 08/06/22 04:06 RDW 14.0 % (12.1-15.2) 08/06/22 04:06 Plt Count 190 K/uL (152-406) 08/06/22 04:06 MPV 6.8 fL (7.6-11.3) L 08/06/22 04:06 Neutrophils % 47.8 % (41.7-73.7) 08/06/22 04:06 Lymphocytes % 34.3 % (15.3-44.8) 08/06/22 04:06 Monocytes % 12.1 % (3.3-12.3) 08/06/22 04:06 Eosinophils % 5.3 % (0-4.4) H 08/06/22 04:06 Basophils % 0.5 % (0-1.3) 08/06/22 04:06 Absolute Neutrophils 3.2 K/uL (1.8-8.0) 08/06/22 04:06 Absolute Lymphocytes 2.3 K/uL (0.7-4.9) 08/06/22 04:06 Absolute Monocytes 0.8 K/uL (0.1-1.3) 08/06/22 04:06 Absolute Eosinophils 0.4 K/uL (0-0.5) 08/06/22 04:06 Absolute Basophils 0.0 K/uL (0-0.5) 08/06/22 04:06 Sodium 137 mmol/L (136-145) 08/06/22 04:06 Potassium 4.7 mmol/L (3.5-5.1) 08/06/22 04:06 Chloride 103 mmol/L (98-107) 08/06/22 04:06 Carbon Dioxide 29 mmol/L (21-32) 08/06/22 04:06 Anion Gap 9.7 mEq/L (5.0-15.0) 08/06/22 04:06 BUN 17 mg/dL (7-18) 08/06/22 04:06 Creatinine 0.80 mg/dL (0.70-1.30) 08/06/22 04:06 Est GFR (CKD-EPI) 100 ml/min (=/>90) 08/06/22 04:06 Glucose 102 mg/dL (74-106) 08/06/22 04:06 POC Glucose 114 mg/dL (65-120) 07/25/22 16:13 Calcium 9.1 mg/dL (8.5-10.1) 08/06/22 04:06 Magnesium 1.9 mg/dL (1.6-2.4) 08/06/22 04:06 Albumin 3.1 g/dL (3.4-5.0) L 08/06/22 04:06 Prealbumin 26.3 mg/dL (20-40) 08/06/22 04:06 Urine Color Light-yellow (Yellow) 08/03/22 02:20 Urine Clarity Clear (Clear) 08/03/22 02:20 Urine pH 7.0 (5.0-7.0) 08/03/22 02:20 Ur Specific [place] 1.008 (1.005-1.030) 08/03/22 02:20 Glucose (UA)(Auto) Negative (Negative) 08/03/22 02:20 Urine Ketones Negative (Negative) 08/03/22 02:20 Urine Blood Negative (Negative) 08/03/22 02:20 Urine Nitrite Negative (Negative) 08/03/22 02:20 Urine Bilirubin Negative (Negative) 08/03/22 02:20 Urine Urobilinogen Normal (Normal) 08/03/22 02:20 Ur Leukocyte Esterase Negative Talib/uL (Negative) 08/03/22 02:20 Urine RBC <5 /HPF (None Seen) 08/03/22 02:20 Urine WBC None seen /HPF (<5) 08/03/22 02:20 Ur Squamous Epith Cells None seen /HPF (None Seen) 08/03/22 02:20 Urine Bacteria None seen /HPF (<20) 08/03/22 02:20 Urine Culture Reflexed Not needed 08/03/22 02:20 Urine Total Protein Negative (Negative) 08/03/22 02:20 SARS-CoV-2 Rap RNA(RT-PCR) Negative (NEGATIVE) 08/07/22 04:20 Weight: 173 lb 9.6 oz Wound Present: No Closed Surgical Incision Present: No Negative Pressure Wound Therapy Present: No Physician Update: His labs reviewed. His ankle pain has not worseded. Made good progress with ADLs. He is on supervision. Ambulating very well around the unit. Summary: Patient's care plan and terminal clerk goals have been reviewed and revised as necessary. Please see the Rehabilitation Signature page for all necessary signatures.
[2022-08-07] MEDS: TRAZODONE 50 MG TABLET PO SCH (19:32)
[2022-08-07] MEDS: ATORVASTATIN 40 MG TAB PO SCH (19:32)
[2022-08-08] MEDS: HYDROCODONE/APAP 7.5/325 MG TAB PO PRN ×3 (03:16→16:14)
[2022-08-08] MEDS: METOPROLOL XL 25 MG TAB PO SCH (05:02)
[2022-08-08 05:38] VITALS: BMI 26.6
[2022-08-08] MEDS: NICOTINE 7 MG/PAT TD SCH ×2 (08:00→08:11)
[2022-08-08] MEDS: LIDOCAINE 4% PATCH TOP SCH ×2 (08:00→08:11)
[2022-08-08] MEDS: [UNRECOGNIZED DRUG - OTHER] PO SCH (08:00)
[2022-08-08] MEDS: POLYETHYL GLY 3350 17 GM/DOSE PO SCH (08:11)
[2022-08-08] MEDS: ENOXAPARIN 40 MG/0.4 ML SQ SCH (08:11)
[2022-08-08] MEDS: DOCUSATE NA/SENNA CONC 1 TAB PO SCH ×2 (08:12→19:29)
[2022-08-08] MEDS: ASPIRIN 81 MG CHEWABLE TABLET PO SCH (08:12)
[2022-08-08] MEDS: GABAPENTIN 300 MG CAP PO SCH ×2 (08:12→19:29)
[2022-08-08] MEDS: CELECOXIB 100 MG CAPSULE PO SCH ×2 (08:12→19:29)
[2022-08-08] MEDS: AMLODIPINE 5 MG TAB PO SCH ×2 (08:13→19:29)
[2022-08-08] MEDS: ENALAPRIL 10 MG TAB PO SCH (10:13)
[2022-08-08] MEDS: ENSURE ENLIVE 237 ML CAN PO SCH ×2 (10:14→19:30)
[2022-08-08] MEDS: ATORVASTATIN 40 MG TAB PO SCH (19:29)
[2022-08-08] MEDS: TRAZODONE 50 MG TABLET PO SCH (19:29)
[2022-08-09] MEDS: METOPROLOL XL 25 MG TAB PO SCH (05:23)
[2022-08-09] MEDS: HYDROCODONE/APAP 7.5/325 MG TAB PO PRN ×3 (05:27→19:47)
[2022-08-09] MEDS: AMLODIPINE 5 MG TAB PO SCH ×2 (07:52→19:47)
[2022-08-09] MEDS: ASPIRIN 81 MG CHEWABLE TABLET PO SCH (07:53)
[2022-08-09] MEDS: DOCUSATE NA/SENNA CONC 1 TAB PO SCH ×2 (07:53→19:46)
[2022-08-09] MEDS: GABAPENTIN 300 MG CAP PO SCH ×2 (07:53→19:46)
[2022-08-09] MEDS: CELECOXIB 100 MG CAPSULE PO SCH ×2 (07:54→19:47)
[2022-08-09] MEDS: ENOXAPARIN 40 MG/0.4 ML SQ SCH (07:54)
[2022-08-09] MEDS: POLYETHYL GLY 3350 17 GM/DOSE PO SCH (07:54)
[2022-08-09] MEDS: NICOTINE 7 MG/PAT TD SCH (07:58)
[2022-08-09] MEDS: [UNRECOGNIZED DRUG - OTHER] PO SCH (07:58)
[2022-08-09] MEDS: ENSURE ENLIVE 237 ML CAN PO SCH ×2 (10:12→19:48)
[2022-08-09] MEDS: ENALAPRIL 10 MG TAB PO SCH (10:13)
[2022-08-09] MEDS: ATORVASTATIN 40 MG TAB PO SCH (19:47)
[2022-08-09] MEDS: TRAZODONE 50 MG TABLET PO SCH (19:48)
[2022-08-10] MEDS: HYDROCODONE/APAP 7.5/325 MG TAB PO PRN ×2 (05:09→13:49)
[2022-08-10] MEDS: METOPROLOL XL 25 MG TAB PO SCH (05:10)
[2022-08-10 07:39] VITALS: BP 119/75; TEMP 97.2
[2022-08-10] MEDS: [UNRECOGNIZED DRUG - OTHER] PO SCH (08:00)
[2022-08-10] MEDS: NICOTINE 7 MG/PAT TD SCH (08:00)
[2022-08-10] MEDS: POLYETHYL GLY 3350 17 GM/DOSE PO SCH (08:00)
[2022-08-10] MEDS: ENOXAPARIN 40 MG/0.4 ML SQ SCH (08:42)
[2022-08-10] MEDS: ENALAPRIL 10 MG TAB PO SCH (08:42)
[2022-08-10] MEDS: ASPIRIN 81 MG CHEWABLE TABLET PO SCH (08:43)
[2022-08-10] MEDS: GABAPENTIN 300 MG CAP PO SCH (08:43)
[2022-08-10] MEDS: AMLODIPINE 5 MG TAB PO SCH (08:43)
[2022-08-10] MEDS: HYDROCORTISONE 1 % CREAM 30GM TOP PRN (08:44)
[2022-08-10] MEDS: CELECOXIB 100 MG CAPSULE PO SCH (08:44)
[2022-08-10] MEDS: DOCUSATE NA/SENNA CONC 1 TAB PO SCH (08:44)
[2022-08-10] MEDS: ENSURE ENLIVE 237 ML CAN PO SCH (08:46)
--- NOTE | 2022-08-12 22:39 | DS ---
Date of Discharge: 08/10/2022 Discharge Condition: Good. Discharge Diagnoses: Hypertension, colon cancer with resection, COVID-19 infection, status post ____ progressive weakness with development of likely transverse myelitis, although his differential diagnosis still suggests subacute combined degeneration. Also gastroesophageal reflux, dyslipidemia , hypertension. Discharge Activity: Weightbearing as tolerated. Diet: Heart healthy. Medications: Tylenol 650 mg every 4 hours as needed, [place] 10/325 every 8 hours as needed, Norvasc 1 0 mg twice daily, aspirin 81 mg daily, Lipitor 40 mg at bedtime, Flexeril 5 mg 3 times daily as neede d, Vasotec 10 mg daily, gabapentin 300 mg twice daily, lidocaine patch 2 patches of 5 daily, Nicoderm patch 7 mg transdermally daily, Ensure Enlive 237 mL twice daily, Senokot-S 2 at bedtime, sodium chl oride 1 g daily, Desyrel 50 mg at bedtime. Note, weightbearing status is as tolerated. Laboratory Studies: White blood cell count 6.7, hemoglobin 10.9, hematocrit 31.5, platelets 190. So dium 137, potassium 4.3, chloride 103, carbon dioxide 29, BUN 17, creatinine 0.8, prealbumin 26.3, al bumin 3.1, calcium 9.1, magnesium 1.9. He had 2 urinalysis on the and on the , all normal. COVID-19 test done 3 times, all normal at , , and . Procedures While In Hospital: None. Consultations: He was seen by Dr. Austyn Valles, a port engineer on the 28 of July with the diagnos is of generalized atherosclerosis and tinea unguium and Dr. Valles did debridement of nails at bedside , discussed treatment of fungus, but did not recommend oral antifungals due to potential liver toxici ty. Hospital Course: Mr. Abraham is a 62-year-old patient with multiple medical problems as noted, who h ad COVID infection earlier last year and eventually received a COVID vaccine towards the end of year and then developed progressive weakness weeks later. He did have tingling and sensory disturbances a nd the weakness was from lower to proximal area, up to his waist and then to the hands. As a result, he was unable to ambulate without an assistive device and eventually he became so weak and he is con fined to a wheelchair. He was seen at [facility], had cardiac catheterization, which did not show a ny significant vessel disease. He was then sent home eventually came back to [facility] as he was unable to mobilize. At [facility] he was sent back again to [facility], where cervical spine imag ing showed acute and subacute multiple strokes involving the cervical spine. 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 Lumbar puncture was done, which results were over at [facility]. He did receive IV Solu-Medrol, did not receive IVIG. As a result, the patient did have significant ongoing weakness and need for medical management, and was therefore admitted to the inpatient rehabilitation at [facility] for physical and occupational therapy along with medical management. During h is hospitalization, he did very well. Blood work was as noted with chronic anemia, hemoglobin 10.9 b y discharge, normal white blood cell count was maintained. Kidney function remained normal throughou t. Protein level was good. Electrolytes good. Urinalysis was negative multiple times and COVID-19 test negative multiple times and he did have management of nail fungus by the port engineer, Dr. Valles. Progress Made With His Physical Therapy: By discharge on the , Mr. Abraham did bed mobilization with independence. He ambulated 750 feet outdoors, indoors with good tolerance and dependence. He d id have; however, some ataxia and incoordination because of recovering strength in the upper extremit ies. His hospital distances were independent. He did require standby assistance for long distances. He was able to go up and down 20 steps with good tolerance using bilateral hand rails. Car transfe r with SUV was done with independence. He is discharged home with his son with not requiring further physical therapy. In terms of his occupational therapy by discharge, shower transfers did show poor balance. He did major ve a balance standing in a tub because of the decrease in sensation, which was improving. It was rec ommended that he use a single prong cane while ambulating and his son was taught how to assist him wi th his activities to reduce his risk of falling. Followup: He will follow up with physicians at [facility] and primary care physician as scheduled. GARIMA/YISEL Voice ID: [id number] Report ID: [id number]
== END 2022-08-10 15:30 | disposition home or self-care (01) | DRG 98 ==
LOC: 5TH 19:25
PROVIDERS: ADMIT Psychiatry & Neurology Neurology with Special Qualifications in Child Neurology; ATTEND Psychiatry & Neurology Neurology with Special Qualifications in Child Neurology
PROC: 0HBRXZZ Excision of Toe Nail, External Approach (ICD-10-PCS; principal; 2022-07-28)
PROC: 0HBRXZZ Excision of Toe Nail, External Approach (ICD-10-PCS; 2022-07-28)
PROC: 0HBRXZZ Excision of Toe Nail, External Approach (ICD-10-PCS; 2022-07-28)
PROC: 0HBRXZZ Excision of Toe Nail, External Approach (ICD-10-PCS; 2022-07-28)
PROC: 0HBRXZZ Excision of Toe Nail, External Approach (ICD-10-PCS; 2022-07-28)
PROC: 0HBRXZZ Excision of Toe Nail, External Approach (ICD-10-PCS; 2022-07-28)
PROC: 0HBRXZZ Excision of Toe Nail, External Approach (ICD-10-PCS; 2022-07-28)
PROC: 0HBRXZZ Excision of Toe Nail, External Approach (ICD-10-PCS; 2022-07-28)
PROC: 0HBRXZZ Excision of Toe Nail, External Approach (ICD-10-PCS; 2022-07-28)
PROC: 0HBRXZZ Excision of Toe Nail, External Approach (ICD-10-PCS; 2022-07-28)
DX: G37.3 Acute transverse myelitis in demyelinating disease of central nervous system (principal); E87.1 Hypo-osmolality and hyponatremia; B35.1 Tinea unguium; E87.5 Hyperkalemia; E78.5 Hyperlipidemia, unspecified; I10 Essential (primary) hypertension; K21.9 Gastro-esophageal reflux disease without esophagitis; I72.3 Aneurysm of iliac artery; G47.00 Insomnia, unspecified; F17.200 Nicotine dependence, unspecified, uncomplicated; I25.2 Old myocardial infarction; Z85.038 Personal history of other malignant neoplasm of large intestine; Z20.822 Contact with and (suspected) exposure to COVID-19
CPT/HCPCS: 36415; 80048; 81001; 82040; 82947; 83735; 84134; 85025; 87086; 87088; 97110; 97112; 97116; 97161; 97165; 97530; 97542; J1650; J2001; U0003

== ENCOUNTER 2023-02-11 07:15 | Emergency (ER) | payer SELFPAY ==
--- OUTSIDE RECORDS SUMMARY | 2023-02-11 07:24 | XMS REPORT | Continuity of Care Document ---
:1960 Author Organization [facility] t Address [address] [facility] [address] [place] [id number] Care Team Providers Name Role Phone ANICETO TA Attending Clinician Unavailable Daniel AHMADI, Syeda Martinez Attending Clinician Aniceto Ta MD Attending Clinician Kirsten AHMADI, Alexis Covington Attending Clinician Teja Bateman MD Attending Clinician Bryan Guo MD Attending Clinician Arin Quezada MD Attending Clinician [phone] BRYAN ESQUIVEL Attending Clinician Unavailable Cristóbal AHMADI, Merissa Arizmendi Attending Clinician [phone] Bryan Esquivel MD Attending Clinician Billie [...] Copper Disease Active [facility] deficiency deficiency 1 [facility] myelopathy myelopathy 00:00: Me dical 00 Center Paraplegia Paraplegia Disease Active 2021-[address] [facility] [place] Coronary Coronary Disease Active [facility] disease disease 00:00: Medical involving involving 00 Cent [place] coronary coronary artery artery Hypertensi Hypertensi Disease Active 2021-[address] on on 08-01 [facility] 00:[facility] [place] HLD HLD Disease Active 2021-[address] [facility] (hyperlipi (hyperlipi 08-01 [facility] demia) demia) 00:00: Medical 00 [place] Smoker Smoker Disease Active 2021-[address] [facility] 08[facility]01 [facility] [place] Thrombocyt Thrombocyt Disease Active 2021-[address] openia openia 08-01 [facility] 00:[facility]: [facility] [place] Cellulitis Cellulitis Disease Active 2021-[address] of back of back 08-01 [facility] except except 00:00: Medical buttock buttock 00 Center Epigastric Epigastric Disease Active 2021-[address] pain pain 08-01 [facility] 00:[facility]: [facility] [place] Deconditio Deconditio Disease Active 2021-[address] jodie low jodie low 08-01 [facility] back back 00:00: Medical [place] Frail Frail Disease Active 2021-[address] [facility] elderly elderly 08-01 [facility] 00:00: [facility] [place] Other Other Disease Active 2021-[address] [facility] chest pain chest pain 08-01 [facility] 00:00: Medical 00 [place] Paresthesi Paresthesi Disease Active 2021-[address] as with as with 08-01 [facility] subjective subjective 00:00: Me dical weakness weakness 00 [place] History of History of Disease Active 2021-[address] colon colon 08-01 [facility] cancer cancer 00:00: Medical 00 [place] Adynamic Adynamic Disease Active 2021-[facility] ileus ileus [facility]01 [facility] [place] Weight Weight Disease Active 2021-[address] [facility] loss, loss, 08-01 [facility] unintentio unintentio 00:00: Me dical nal nal 00 [place] (Ambrocio) (Ambrocio) Disease Active 2021-07 [facility] 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 00:00: Medica l common common 00 Center iliac iliac artery artery Allergies, Adverse Reactions, Alerts Allergy Allergy Status Severity Reaction(s) Onset Inactive Treating Comm ents Source Name Type Date Date Clinician MORPHINE Allergy Active Med N\\T\\V 2021-[address] [facility] 1-18 [facility] 00:[facility]: Medical 00 Center Morphine Drug Active Nausea And 2021-[address] [facility] [address] Intolera Vomiting -18 [facility] nce 00:00: Medical 00 Center Social History Social Habit Start Date Stop Date Quantity Comments Source History [facility]Med Medical [facility] History [facility] 2022-06-19 2022-06-[address] [facility] Transport Med 00:00:00 00:00:[address] History [facility] Housing 2022-06-19 2022-06-[address] [facility] Unable to Pay 00:00:00 00:00:[address] History [facility] Housing 2022-06-19 2022-06-[address] [facility] Places Lived 00:00:00 00:00:00 Medical Cent er History [facility] Housing 2022-06-19 2022-06-[address] [facility] Homeless Last Year 00:00:00 00:00:00 [facility] [place] Exposure to 2022-05-19 2022-05-[address] [facility] SARS-CoV-2 (event) 00:00:00 01:39:00 [facility] [place] Cigarettes smoked 2022-05-29 2022-05-[address] [facility] current (pack per 00:00:00 00:00:00 Medical Center day) - Reported Tobacco use and 2022-05-29 2022-05-[address] [facility] exposure 00:00:00 00:00:00 [facility] Center Sex Assigned At [birth year] [facility] k[facility] 00:00:00 00:00:00 Medical Center Smoking Status Start Date Stop Date Source Current every day smoker 2022-05-29 00:00:00 [facility] Medications Ordered Filled Start Stop Current Ordering Indication Dosage Frequency Signature Comments Components Source Medication Medication Date Date Medication? Clinician (SIG) Name Name amLODIPine Yes 10mg QD Take [address] (NORVASC) 1-13 by mouth [facility] 10 MG 19:13: daily. Medical tablet [address] [place] [address] enalapril Yes 10mg QD Take [address] (VASOTEC) 1-13 by mouth [facility] 10 MG 19:13: daily. Medical tablet 47 Center metoprolol Yes 25mg QD Take [address] succinate 1-13 by mouth [facility] (TOPROL-XL) 19:13: daily. Medi dhaval 25 MG 24 hr 47 Center tablet celecoxib 2023- No 100mg Q.5D Take [address] [facility] (CeleBREX) -07-24 capsule [facility] 100 MG 00:00: 23:59 (100 mg Medical capsule 00 :00 total) by Center mouth 2 (two) times daily . sodium 2023- No 2g Take [address] [facility] chloride 1 06 01-06 tablets (2 [facility] gram tablet 00:00: 23:59 g total) M edical 00 :00 by mouth 2 Center (two) times daily with breakfast and dinner. A-C-E-zinc- Yes 1{tbl} QD Take [address] sod 1-05 [facility] selen[facility]-co 00:00: mouth Medic al pper 00 daily. [place] (Prosight) 5,000-60-30 unit-mg-uni t Tab enoxaparin Yes 40mg Q24H Inject 0.[address] (LOVENOX) 1-05 mLs (40 mg Luke s 40 mg/0.4 00:00: total) Medica l mL Syrg 00 subcutaneo Center usly daily. lidocaine 2022- No 2{patch Q24H Place [address] (LIDODERM) 07-16- } patches [facility] 5 % patch 00:00: 23:59 onto the Med ical 00 :00 skin daily Center for 30 days Remove & Discard patch within 12 hours or as directed by . polyethylen 2022- No 17g QD Take [address] [facility] e glycol 05 -08 by mouth [facility] (GLYCOLAX) 00:00: 23:59 daily for M edical 17 gram 00 :00 3 days. [place] packet insulin 2023- No 0U Inject 0-[address] lispro 1-04 -04 Units [facility] (HumaLOG) 00:00: 23:59 subcutaneo edical 100 unit/mL 00 :00 usly 3 Center injection (three) times daily before meals. senna-docus 2023- No 2{tbl} Q.5D Take [address] ate 07-15 tablets by [place] (SENOKOT S) 00:00: 23:59 mouth 2 Me dical 8.6-50 mg 00 :00 (two) Center per tablet times daily. acetaminoph 2022- No 650mg Take [address] en 07-15 12-30 tablets [facility] (TYLENOL) 00:00: 23:59 (650 mg Medi dhaval 325 MG 00 :00 total) by Center tablet mouth every 4 (four) hours as needed for up to 360 days. nicotine 2022- No 1{patch QD Place [address] (NICODERM 07-15 } patch onto [place] CQ) 7 mg/24 00:00: 23:59 the skin M edical hr patch 00 :00 daily for Center 30 days. bisacodyL No 10mg Take 2 [facility] (DULCOLAX) 07-15 tablets [facility] 5 mg EC 00:00: 23:59 (10 mg Medical tablet 00 :00 total) by Center mouth daily as needed for Constipati on for up to 30 days. traZODone No 50mg QD Take 1 [facility] (DESYREL) 07-15 tablet (50 [place] 50 MG 00:00: 23:59 mg total) Medica l tablet 00 :00 by mouth Center nightly for 30 days. cyclobenzap 2022- No 5mg [id number] Take [address] [facility] [address] rine 07-15 [id number] tablet (5 [place] (FLEXERIL) 00:00: 23:59 3D mg total) M edical 5 MG tablet 00 :00 by mouth 3 Ce nter (three) times daily for 10 days. HYDROcodone 2022- No 1{tbl} Take [address] -acetaminop 07-15 tablet by Jada funes (NORCO 00:00: 23:59 mouth Medic al 10-325) 00 :00 every 8 Center 10-325 mg (eight) per tablet hours for 10 days. Max Daily Amount: 3 tablets oxyCODONE-a No 1{tbl} Take [address] cetaminophe 07-15 tablet by Jada antunez n 00:00: 23:59 mouth Medical (PERCOCET) 00 :00 every 6 Center 5-325 mg (six) per tablet hours as needed for up to 10 days . Max Daily Amount: 4 tablets ondansetron 4mg Take [address] [facility] (ZOFRAN-ODT 07-15 [...] 24 hr 42 Center tablet aspirin 81 2021-07 No 81mg QD Take [address] [facility] MG chewable -06-09 tablet (81 L ukes tablet 00:00: 23:59 mg total) Medic al 00 :00 by mouth Center daily. gabapentin 2021-07- No 300mg QD Take [address] [facility] (NEURONTIN) -09 06- capsule Luke s 300 MG 00:00: 23:59 (300 mg Medical capsule 00 :00 total) by Center mouth nightly. aspirin 81 2021-07- No 81mg QD Take [address] [facility] MG chewable -29 - tablet (81 L ukes tablet 00:00: 23:59 mg total) Medic al 00 :00 by mouth Center daily. gabapentin 2021-07- No 300mg QD Take [address] [facility] (NEURONTIN) -09 06- capsule Luke s 300 MG 00:00: 23:59 (300 mg Medical capsule 00 :00 total) by Center mouth nightly. nicotine 2021-07- No 1{patch QD Place [address] (NICODERM 08-09 } patch onto [place] CQ) 14 00:00: 00:00 the skin Medica l mg/24 hr 00 :00 daily for Center patch 30 days. nicotine 2021-07- No 1{patch QD Place [address] (NICODERM 08-09 } patch onto [place] CQ) 14 00:00: 23:59 the skin Medica l mg/24 hr 00 :00 daily for Center patch 30 days. polyethylen 2021-07- No 17g QD Take [address] [facility] e glycol 08-09 by mouth [facility] (GLYCOLAX) 00:00: 23:59 daily for M edical 17 gram 00 :00 3 days. Center packet polyethylen 2021-07 No 17g QD Take [address] [facility] e glycol 08-09 by mouth [facility] (GLYCOLAX) 00:00: 23:59 daily for M edical 17 gram 00 :00 3 days. Center packet atorvastati 2021-07- No 40mg QD Take [address] [facility] [facility] n (LIPITOR) 08-08-28 tablet (40 L ukes 40 MG 00:00: 23:59 mg total) Medica l tablet 00 :00 by mouth Center nightly. atorvastati 2021-07- No 40mg QD Take [address] [facility] n (LIPITOR) 08-08-28 tablet (40 L ukes 40 MG 00:00: 23:59 mg total) Medica l tablet 00 :00 by mouth Center nightly. gabapentin 2021-07- No 300mg Q.[id number] Take [address] [facility] [facility] (NEURONTIN) 08-08- [id number] capsule [facility] 300 MG 00:00: 00:00 3D (300 mg Medical capsule 00 :00 total) by Center mouth 3 (three) times daily. gabapentin 2021-07- No 300mg Q.[id number] Take [address] [facility] (NEURONTIN) 08-08- [id number] capsule [facility] 300 MG 00:00: 00:00 3D [...] cm Systolic blood 2022-07-24 16:00:00 131 mm[Hg] [facility] Diastolic blood 2022-07-24 16:00:00 80 mm[Hg] [facility] Heart rate 2022-07-24 16:00:00 78 /min [facility] Body temperature 2022-07-24 16:00:00 36.28 Caprice [facility] Respiratory rate 2022-07-24 16:00:00 18 /min [facility] Oxygen saturation in 2022-07-24 16:00:00 98 /min [facility] Arterial blood by Medical Ce nter Pulse oximetry Body weight 2022-07-19 07:20:00 72.1 kg [facility] BMI 2022-07-19 07:20:00 24.17 kg/m2 [facility] Body height 2022-06-19 00:24:00 172.7 cm [facility] Systolic blood 2022-06-09 15:22:00 137 mm[Hg] [facility] Diastolic blood 2022-06-09 15:22:00 98 mm[Hg] [facility] Heart rate 2022-06-09 15:22:00 85 /min [facility] Body temperature 2022-06-09 15:22:00 36.5 Caprice [facility] Respiratory rate 2022-06-09 15:22:00 18 /min [facility] Oxygen saturation in 2022-06-09 15:22:00 98 /min [facility] Arterial blood by Medical Ce nter Pulse oximetry Body weight 2022-06-07 07:29:00 67.7 kg [facility] BMI 2022-06-07 07:29:00 22.69 kg/m2 [facility] Body height 2022-05-29 01:00:00 172.7 cm [facility] Procedures Procedure Date / Time Performing Clinician Source Performed BASIC METABOLIC PANEL 2022-07-24 12:46:00 Yaz Smith [facility] ELECTROLYTES 2022-07-21 12:14:00 Cristy [facility] POCT-GLUCOSE METER 2022-07-21 11:34:00 Cristy [facility] POCT-GLUCOSE METER 2022-07-21 08:14:00 Cristy [facility] POCT-GLUCOSE METER 2022-07-20 17:20:00 Ta [facility] POCT-GLUCOSE METER 2022-07-20 12:43:00 [facility] 2022-07-20 08:30:00 Cristy [facility] SARS-COV2/RT-PCR ([facility] & 2022-07-20 05:41:00 Cristy [facility] POCT-GLUCOSE METER 2022-07-19 21:16:00 Ta Aniceto [facility] POCT-GLUCOSE METER 2022-07-19 18:30:00 Ta, [facility] POCT-GLUCOSE METER 2022-07-19 07:52:00 Ta, [facility] BASIC METABOLIC PANEL 2022-07-19 05:46:00 Bhavana [facility] POCT-GLUCOSE METER 2022-07-18 21:53:00 Ta [facility] POCT-GLUCOSE METER 2022-07-18 17:01:00 Ta [facility] POCT-GLUCOSE METER 2022-07-18 12:55:00 Ta, [facility] POCT-GLUCOSE METER 2022-07-18 07:53:00 [facility] BASIC METABOLIC PANEL 2022-07-18 05:50:00 [facility] CBC W/PLT COUNT & AUTO 2022-07-18 05:50:00 Bhavana [facility] CBC W/PLT COUNT & AUTO 2022-07-18 05:50:00 Bhavana [facility] POCT-GLUCOSE METER 2022-07-17 21:40:00 Cristy [facility] POCT-GLUCOSE METER 2022-07-17 17:22:00 Cristy [facility] POCT-GLUCOSE METER 2022-07-17 12:44:00 Ta [facility] POCT-GLUCOSE METER 2022-07-17 08:07:00 [facility] BASIC METABOLIC PANEL 2022-07-17 05:41:00 Bhavana [facility] POCT-GLUCOSE METER 2022-07-16 21:19:00 Ta [facility] POCT-GLUCOSE METER 2022-07-16 17:48:00 Ta, [facility] POCT-GLUCOSE METER 2022-07-16 12:52:00 Ta [facility] POCT-GLUCOSE METER 2022-07-16 08:25:00 [facility] BASIC METABOLIC PANEL 2022-07-16 03:41:00 B[facility]ana [facility] CBC W/PLT COUNT & AUTO 2022-07-16 03:41:00 Bhavana [facility] CBC W/PLT COUNT & AUTO 2022-07-16 03:41:00 Bhavana [facility] POCT-GLUCOSE METER 2022-07-15 21:44:00 Ta [facility] POCT-GLUCOSE METER 2022-07-15 16:43:00 [facility] CORTISOL,60 MIN 2022-07-15 12:23:00 Dex[facility] POCT-GLUCOSE METER 2022-07-15 11:58:00 [facility] CORTISOL,30 MIN 2022-07-15 11:49:00 [facility] ACTH STIMULATION 2022-07-15 10:04:00 Dexter [facility] CORTISOL,BASELINE 2022-07-15 10:04:00 Leonel Renteria [facility] POCT-GLUCOSE METER 2022-07-15 08:19:00 Cristy [facility] D-DIMER 2022-07-15 04:51:[facility] 2022-07-15 04:50:00 [facility]ana [facility] POCT-GLUCOSE METER 2022-07-14 21:42:00 [facility] POCT-GLUCOSE METER 2022-07-14 17:39:00 [facility] POCT-GLUCOSE METER 2022-07-14 12:52:00 Ta [facility] XR CHEST 1 VIEW PORTABLE / 2022-07-14 11:27:00 Aniceto Ta [facility] POCT-GLUCOSE METER 2022-07-14 09:50:00 Cristy Aniceto [facility] POCT-GLUCOSE METER 2022-07-14 08:21:00 [facility] BASIC METABOLIC PANEL 2022-07-14 05:38:00 [facility] CBC W/PLT COUNT & AUTO 2022-07-14 05:38[facility]00 [facility] 2022-07-14 05:38:00 Dexter [facility] CBC W/PLT COUNT & AUTO 2022-07-14 05:38:00 Bhavana [facility] POCT-GLUCOSE METER 2022-07-13 21:53:00 Aniceto Ta [facility] POCT-GLUCOSE METER 2022-07-13 17:18:00 Bhavana [facility] BASIC METABOLIC PANEL 2022-07-13 17:02:00 Dexter [facility] SARS-COV2/RT-PCR ([facility] & 2022-07-13 14:59:[address] [facility] POCT-GLUCOSE METER 2022-07-13 12:10:00 Bhavana [facility] POCT-GLUCOSE METER 2022-07-13 08:25:00 Bhavana [facility] BASIC METABOLIC PANEL 2022-07-13 04:04:00 [facility] 2022-07-12 21:13[facility] 2022-07-12 17:54:00 [facility] 2022-07-12 12:19:00 [facility] PO[facility]SE [facility] 2022-07-12 07:42:00 Bhavana [facility] CBC W/PLT COUNT & AUTO 2022-07-12 05:12:00 Bhavana [facility] BASIC METABOLIC PANEL 2022-07-12 05:12:00 [facility]ana [facility] CBC W/PLT COUNT & AUTO 2022-07-12 05:12:00 Bhavana [facility] POCT-GLUCOSE METER 2022-07-11 21:20:[facility] 2022-07-11 17:37:00 Bhavana [facility] POCT-GLUCOSE METER 2022-07-11 12:22:00 [facility] POCT-[facility]UCOSE [facility]ER 2022-07-11 07:33:00 Bhavana [facility] CBC W/PLT COUNT & AUTO 2022-07-11 04:06:00 Bhavana [facility] BASIC METABOLIC PANEL 2022-07-11 04:06:00 [facility] CORT[facility]OL 2022-07-11 04:06:[address] [facility] CBC W/PLT COUNT & AUTO 2022-07-11 04:06:00 Bhavana [facility] POCT-GLUCOSE METER 2022-07-10 17:46:00 [facility] 2022-07-10 11:31:00 [facility] PO[facility]SE [facility] 2022-07-10 07:22:00 [facility] SOD[facility] LAB 2022-07-10 05:56:[address] [facility] CBC W/PLT COUNT & AUTO 2022-07-10 05:32:00 Bhavana, [facility] BASIC METABOLIC PANEL 2022-07-10 05:32:00 [facility]ana [facility] URIC ACID 2022-07-10 05:32:[address] [facility] CBC W/PLT COUNT & AUTO 2022-07-10 05:32:00 Bhavana [facility] POCT-GLUCOSE METER 2022-07-09 21:09:00 Bhavana [facility] OSMOLALITY, SERUM 2022-07-09 13:35:00 Luis [facility] OSMOLALITY, URINE 2022-07-09 13:30:00 Luis [facility] SODIUM, RANDOM URINE 2022-07-09 13:30:00 Luis Yaz Guajardoodalys I [facility] CHLORIDE, RANDOM URINE 2022-07-09 13:30:[address] [facility] POCT-GLUCOSE METER 2022-07-09 11:08:00 Bhavana [facility] POCT-GLUCOSE METER 2022-07-09 07:22:00 Bhavana [facility] CBC W/PLT COUNT & AUTO 2022-07-09 03:54:00 Bhavana [facility] BASIC METABOLIC PANEL 2022-07-09 03:54:00 [facility] CBC W/PLT COUNT & AUTO 2022-07-09 03:54:00 Bhavana [facility] POCT-GLUCOSE METER 2022-07-08 21:12:00 Bhavana [facility] POCT-GLUCOSE METER 2022-07-08 17:24:00 Bhavana [facility] POCT-GLUCOSE METER 2022-07-08 11:01:00 [facility] PO[facility]SE [facility]ER 2022-07-08 07:21:00 Bhavana [facility] CBC W/PLT COUNT & AUTO 2022-07-08 03:50:00 Bhavana [facility] BASIC METABOLIC PANEL 2022-07-08 03:50:00 [facility] CBC W/PLT COUNT & AUTO 2022-07-08 03:50:00 Bhavana [facility] POCT-GLUCOSE METER 2022-07-07 21:14:00 Bhavana [facility] POCT-GLUCOSE METER 2022-07-07 17:14:00 Bhavana [facility] POCT-GLUCOSE METER 2022-07-07 11:38:00 Bhavana, [facility] POCT-GLUCOSE METER 2022-07-07 08:09:00 Ta [facility] POCT-GLUCOSE METER 2022-07-06 20:41:00 Ta [facility] POCT-GLUCOSE METER 2022-07-06 16:52:00 Ta, [facility] POCT-GLUCOSE METER 2022-07-06 11:49:00 Ta, [facility] SARS-COV2/RT-PCR ([facility] & 2022-07-06 10:42:00 Ta [facility] POCT-GLUCOSE METER 2022-07-06 07:34:00 Ta, [facility] POCT-GLUCOSE METER 2022-07-05 21:49:00 Ta, [facility] POCT-GLUCOSE METER 2022-07-05 17:54:00 Ta, [facility] POCT-GLUCOSE METER 2022-07-05 11:47:00 Ta, [facility] POCT-GLUCOSE METER 2022-07-05 07:58:00 Ta, [facility] POCT-GLUCOSE METER 2022-07-04 21:23:00 Ta, [facility] POCT-GLUCOSE METER 2022-07-04 17:43:00 Ta, Aniceto [facility] POCT-GLUCOSE METER 2022-07-04 11:54:00 Ta, [facility] 2022-07-04 07:53:00 Ta, Anicetofaviola [facility] COPPER 2022-07-04 04:10:00 Ta[facility] 2022-07-04 04:09:00 Ta, [facility] POCT-GLUCOSE METER 2022-07-03 20:29:00 Ta, Anicetofaviola [facility] POCT-GLUCOSE METER 2022-07-03 17:51:00 Ta, [facility] PO[facility]-GLUCOSE METER 2022-07-03 12:19:00 Ta, [facility] POCT-GLUCOSE METER 2022-07-03 08:20:00 Ta, Anicetofaviola [facility] BASIC METABOLIC PANEL 2022-07-03 05:42:00 Alexis Curtis [facility] POCT-GLUCOSE METER 2022-07-02 20:46:00 Ta, [facility] POCT-GLUCOSE METER 2022-07-02 17:22:00 Ta, Aniceto [facility] POCT-GLUCOSE METER 2022-07-02 11:37:00 Ta, Aniceto Danny [facility] POCT-GLUCOSE METER 2022-07-02 07:48:00 Ta, Aniceto Danny [facility] POCT-GLUCOSE METER 2022-07-01 21:31:00 Ta, Aniceto Danny [facility] POCT-GLUCOSE METER 2022-07-01 17:29:00 Ta, Aniceto Danny [facility] POCT-GLUCOSE METER 2022-07-01 12:56:00 Ta, Aniceto Danny [facility] POCT-GLUCOSE METER 2022-07-01 07:21:00 Ta, Aniceto Delgado [facility] POCT-GLUCOSE METER 2022-06-30 22:02:00 Kirsten Alexis [facility] POCT-GLUCOSE METER 2022-06-30 17:54:00 Kirsten [facility] POCT-GLUCOSE METER 2022-06-30 11:50:00 Kirsten [facility] POCT-GLUCOSE METER 2022-06-30 07:37:00 Kirsten Alexis [facility] BASIC METABOLIC PANEL 2022-06-30 03:30:00 Duc [facility] POCT-GLUCOSE METER 2022-06-29 21:44:00 Kirsten [facility] POCT-GLUCOSE METER 2022-06-29 18:07:00 Duc [facility] SARS-COV2/RT-PCR ([facility] & 2022-06-29 16:48:00 Aniceto Ta [facility] REF LABS) [facility] PARANEOPLAS AB SCR,IFA,CSF 2022-06-29 16:47:00 Garcia [facility] AQP4 AB (IGG), SCREEN, CSF 2022-06-29 16:47:00 Jose [facility] AQP4 AB (IGG),TITER,CSF 2022-06-29 16:47:00 Garcia [facility] [place]-3 AB, IFA TITER, CSF 2022-06-29 16:47:00 Garcia, [facility] REPRODUCTION MACHINE LOADER-2 AB, TITER, CSF 2022-06-29 16:47:00 [facility], [facility] PARANEOPLASTIC AB, LB, CSF 2022-06-29 16:47:00 [facility] PAR[facility]OPLAS AB,CBA,IFA,CSF 2022-06-29 16:47:00 Garcia [facility] PARANEOPLASTIC, NMDAR1 2022-06-29 16:47:00 Garcia, [facility] PARANEOPLASTIC, AMPAR1 2022-06-29 16:47:00 Garcia, [facility] PARANEOPLASTIC, AMPAR2 2022-06-29 16:47:00 Garcia, [facility] PARANEOPLASTIC, GABABR 2022-06-29 16:47:00 Garcia, [facility] PARANEOPLASTIC, LGI1 2022-06-29 16:47:00 Garcia, [facility] PARANEOPLASTIC, CASPR2 2022-06-29 16:47:00 Garcia, [facility] VGKC ANTIBODY, CSF 2022-06-29 16:47:00 Garica, [facility] PARANEOPLASTIC AB EVAL W/ 2022-06-29 16:47:00 Garcia, [facility] REFLEX TITER & LB, CSF [facility] C enter ANGIOTENSIN CONVERTING 2022-06-29 16:47:00 Joe Arciniega [facility] Romain [facility] ENZYME (CARROL) [facility] HTLV 1/2 ANTIBODY 2022-06-29 16:47:00 Joe Arciniega [facility] IMMUNOGLOBULINS PANEL, CSF 2022-06-29 16:46:00 Garcia, Miki [facility] ([facility]) [facility] GLUCOSE, CSF 2022-06-29 16:41:00 Garcia, [facility] PROTEIN, CSF 2022-06-29 16:41:00 Garcia, [facility] CSF CELL COUNT 2022-06-29 16:41:00 Garcia, [facility] VDRL, CSF 2022-06-29 16:41:00 Garcia, [facility] ALBUMIN, CSF 2022-06-29 16:41:00 Garcia, [facility] AQUAPORIN-4 (AQP4)(NMO-IGG) 2022-06-29 16:41:00 Garcia, [facility] ANTIBODY WITH REFLEX TO Medical Center TITER, CF OLIGOCLONAL BANDS 2022-06-29 16:39:00 Garcia, [facility] PROTEIN ELECTROPHORESIS, 2022-06-29 16:39:00 Garcia, [facility] IGG INDEX (CSF + BLOOD) 2022-06-29 16:39:00 Garcia, [facility] PROTEIN, CSF 2022-06-29 16:39:00 Garcia, [facility] PROTEIN ELECTROPHORESIS, 2022-06-29 16:39:00 Garcia, [facility] CSF CULTURE + GRAM STAIN 2022-06-29 16:38:00 Garcia, [facility] POCT-GLUCOSE METER 2022-06-29 12:33:00 Alexis Curtis [facility] CBC W/PLT COUNT & AUTO 2022-06-29 03:05:00 Alexis Curtis [facility] BASIC METABOLIC PANEL 2022-06-29 03:05:00 Kirsten Alexis [facility] CBC W/PLT COUNT & AUTO 2022-06-29 03:05:00 Alexis Curtis [facility] POCT-GLUCOSE METER 2022-06-28 21:52:00 Alexis Curtis yovani [facility] POCT-GLUCOSE METER 2022-06-28 11:47:00 Alxeis Curtis [facility] POCT-GLUCOSE METER 2022-06-28 07:42:00 Alexis Curtis [facility] POCT-GLUCOSE METER 2022-06-27 20:56:00 Alexis Curtis yovani [facility] POCT-GLUCOSE METER 2022-06-27 16:47:00 Alexis Curtis yovani [facility] POCT-GLUCOSE METER 2022-06-27 12:16:00 Alexis Curtis [facility] POCT-GLUCOSE METER 2022-06-27 08:30:00 Alexis Curtisgisselle [facility] POCT-GLUCOSE METER 2022-06-26 23:54:00 Kirsten Alexis [place] [facility] COPPER 2022-06-26 10:38:00 Joe Arciniega, Lynne [facility] CBC W/PLT COUNT & AUTO 2022-06-26 05:31:00 Cristy [facility] BASIC METABOLIC PANEL 2022-06-26 05:31:00 Cristy [facility] MAGNESIUM 2022-06-26 05:31:00 [facility] & AUTO 2022-06-26 05:31[facility] AB WITH REFLEX 2022-06-25 16:53:00 Jose, [facility] SJOGREN'S ANTIBODIES 2022-06-25 16:53:00 Jose, [facility] MISCELLANEOUS LAB ORDER 2022-06-25 16:52:00 Jose, [facility] 2D ECHO W/ DOPPLER 2022-06-25 13:56:31 Jose, [facility] (CW/PW/COLOR) [facility] MR LUMBAR SPINE WITH & 2022-06-24 12:39:00 Kirsten Alexis [place] I [facility] WITHOUT IV CONTRAST Medical Cent er MR THORACIC SPINE WITH & 2022-06-24 12:39:00 KirstenDanielledori [place] [facility] WITHOUT IV CONTRAST Medical Cent er CTA BRAIN 2022-06-23 13:45:00 Jose, [facility] CTA CAROTID 2022-06-23 13:45:00 Jose, [facility] RPR 2022-06-23 11:40:00 Jose, [facility] HEMOGLOBIN A1C 2022-06-23 11:40:00 Jose, [facility] TSH/FREE T4 IF INDICATED 2022-06-23 11:40:00 [facility] METHYLMALONIC ACID 2022-06-23 11:40:00 [facility] BASIC METABOLIC PANEL 2022-06-23 03:53:00 Kirsten Alexis [facility] LIPID PANEL 2022-06-23 03:53:00 Jose [facility] MR BRAIN WITH & WITHOUT IV 2022-06-22 20:25:00 Kirsten Alexis yasmeen pitts [facility] CONTRAST [facility] MR CERVICAL SPINE WITH & 2022-06-22 20:25:00 [facility] WITHOUT IV CONTRAST Medical Cent er SARS-COV2/RT-PCR ([facility] & 2022-06-22 09:36:00 Aniceto Ta [facility] REF LABS) [facility] BASIC METABOLIC PANEL 2022-06-22 05:55:00 Kirsten Alexis [facility] BASIC METABOLIC PANEL 2022-06-21 01:36:00 Kirsten Alexis [facility] VITAMIN B12 2022-06-19 16:59:00 DurkalNileshal Prachelsea [facility] XR ANKLE 3 VIEWS RIGHT 2022-06-19 14:20:00 Aniecto Ta [facility] BASIC METABOLIC PANEL 2022-06-19 04:50:[address] [facility] CBC W/PLT COUNT & AUTO 2022-06-19 04:50:[address] [facility] PROTHROMBIN TIME/INR 2022-06-19 04:50:00 Pietro [facility] MAGNESIUM 2022-06-19 04:50:00 Pietro [facility] URIC ACID 2022-06-19 04:50:00 Aniceto Ta [facility] CBC W/PLT COUNT & AUTO 2022-06-19 04:50:[address] [facility] POCT-GLUCOSE METER 2022-06-09 11:39:00 NeBryan maxwell [facility] POCT-GLUCOSE METER 2022-06-09 07:01:00 Neason, Bryan [facility] BASIC METABOLIC PANEL 2022-06-09 04:08:00 Tyler Hardy [facility] CBC W/PLT COUNT & AUTO 2022-06-09 04:08:00 Tyler Hardy [facility] CBC W/PLT COUNT & AUTO 2022-06-09 04:08:00 Tyler Hardy [facility] POCT-GLUCOSE METER 2022-06-08 20:57:00 Nealissa, Bryan [facility] POCT-GLUCOSE METER 2022-06-08 16:38:00 Nealissa [facility] POCT-GLUCOSE METER 2022-06-08 12:00:00 NeBryan maxwell [facility] POCT-GLUCOSE METER 2022-06-08 08:13:00 NeasonBryan [facility] BASIC METABOLIC PANEL 2022-06-08 04:45:00 Tyler Hardy CH [facility] CBC W/PLT COUNT & AUTO 2022-06-08 04:45:00 Tyler Hardy [facility] CBC W/PLT COUNT & AUTO 2022-06-08 04:45:00 Tyler Hardy [facility] POCT-GLUCOSE METER 2022-06-07 21:02:00 NeBryan maxwell [facility] POCT-GLUCOSE METER 2022-06-07 17:14:00 Neason, Bryan [facility] POCT-GLUCOSE METER 2022-06-07 11:05:00 Neason, [facility] POCT-GLUCOSE METER 2022-06-07 07:28:00 Neason, [facility] BASIC METABOLIC PANEL 2022-06-07 03:39:00 Antony, Scott Kamel [facility] CBC W/PLT COUNT & AUTO 2022-06-07 03:39:00 Tyler Hardy [facility] CBC W/PLT COUNT & AUTO 2022-06-07 03:39:00 Tyler Hardy [facility] POCT-GLUCOSE METER 2022-06-06 20:43:00 Nealissa [facility] POCT-GLUCOSE METER 2022-06-06 16:56:00 Neason [facility] POCT-GLUCOSE METER 2022-06-06 11:22:00 Nealissa [facility] SARS-COV2/RT-PCR ([facility] & 2022-06-06 08:18:[address] [facility] POCT-GLUCOSE METER 2022-06-06 07:22:00 Sierra [facility] BASIC METABOLIC PANEL 2022-06-06 04:38:00 Tyler Hardy [facility] CBC W/PLT COUNT & AUTO 2022-06-06 04:38:00 Tyler Hardy [facility] CBC W/PLT COUNT & AUTO 2022-06-06 04:38:00 Tyler Hardy [facility] POCT-GLUCOSE METER 2022-06-05 20:49:00 Sierra [facility] POCT-GLUCOSE METER 2022-06-05 11:53:00 Sierra [facility] POCT-GLUCOSE METER 2022-06-05 06:46:00 Sierra [facility] BASIC METABOLIC PANEL 2022-06-05 04:25:00 Tyler Hrady [facility] CBC W/PLT COUNT & AUTO 2022-06-05 04:25:00 Tyler Hardy [facility] CBC W/PLT COUNT & AUTO 2022-06-05 04:25:00 Tyler Hardy [facility] POCT-GLUCOSE METER 2022-06-04 20:47:00 Bryan Esquivel [facility] POCT-GLUCOSE METER 2022-06-04 16:17:00 NeBryan maxwell [facility] POCT-GLUCOSE METER 2022-06-04 11:29:00 Bryan Esquivel [facility] POCT-GLUCOSE METER 2022-06-04 06:44:00 SierraBryan [facility] BASIC METABOLIC PANEL 2022-06-04 05:02:00 Tyler Hardy CH [facility] CBC W/PLT COUNT & AUTO 2022-06-04 05:02:00 Tyler Hardy [facility] CBC W/PLT COUNT & AUTO 2022-06-04 05:02:00 Tyler Hardy [facility] CT CHEST WITH IV CONTRAST 2022-06-04 02:03:00 Tyler Hardy [facility] CT ABDOMEN/PELVIS WITH IV 2022-06-04 02:03:00 Tyler Hardy [facility] POCT-GLUCOSE METER 2022-06-03 21:08:00 SierraBryan [facility] POCT-GLUCOSE METER 2022-06-03 17:05:00 Nancyalissa Bryan [facility] POCT-GLUCOSE METER 2022-06-03 11:06:00 NancyBryan maxwell [facility] POCT-GLUCOSE METER 2022-06-03 07:26:00 NeBryan maxwell [facility] BASIC METABOLIC PANEL 2022-06-03 04:28:00 Tyler Hardy CH [facility] CBC W/PLT COUNT & AUTO 2022-06-03 04:28:00 Tyler Hardy [facility] CBC W/PLT COUNT & AUTO 2022-06-03 04:28:00 Tyler Hardy [facility] POCT-GLUCOSE METER 2022-06-02 20:51:00 Bryan Esquivel [facility] POCT-GLUCOSE METER 2022-06-02 14:41:00 Bryan Esquivel [facility] POCT-ACT 2022-06-02 13:49:00 Sierra [facility] CATHETERIZATION, HEART, 2022-06-02 12:49:00 Billie Vyas [facility] LEFT, WITH PERCUTANEOUS Medical Center CORONARY INTERVENTION POCT-GLUCOSE METER 2022-06-02 11:08:00 Sierra Bryan [facility] POCT-GLUCOSE METER 2022-06-02 07:54:00 Sierra [facility] CBC W/PLT COUNT & AUTO 2022-06-02 04:18:00 Tyler Hardy [facility] CBC W/PLT COUNT & AUTO 2022-06-02 04:18:00 Syeda Sanchez [facility] BASIC METABOLIC PANEL 2022-06-02 04:17:00 Tyler Hardy [facility] POCT-GLUCOSE METER 2022-06-01 20:56:00 Nealissa Bryan [facility] POCT-GLUCOSE METER 2022-06-01 16:29:00 Nealissa Bryan [facility] POCT-GLUCOSE METER 2022-06-01 11:50:00 Nealissa [facility] POCT-GLUCOSE METER 2022-06-01 07:21:00 Syeda Sanchez [facility] MAGNESIUM 2022-06-01 04:44:00 Ramirez [facility] PHOSPHORUS 2022-06-01 04:44:00 [facility] 2022-06-01 04:44:00 Tyler Hardy [facility] CBC W/PLT COUNT & AUTO 2022-06-01 04:44:00 Tyler Hardy [facility] CBC W/PLT COUNT & AUTO 2022-06-01 04:44:00 Daniel, Syeda [facility] POCT-GLUCOSE METER 2022-05-31 21:37:00 Daniel [facility] 2D ECHO W/ DOPPLER 2022-05-31 17:38:13 Tyler Hardy [facility] (CW/PW/COLOR) [facility] POCT-GLUCOSE METER 2022-05-31 17:06:00 Daniel [facility] POCT-GLUCOSE METER 2022-05-31 11:44:00 Daniel [facility] POCT-GLUCOSE METER 2022-05-31 06:53:00 Merissa Ambrocio [facility] XR ABDOMEN/KUB 1 VIEW 2022-05-31 06:47:00 Amalia Deleon [facility] PORTABLE [facility] XR CHEST 1 VIEW PORTABLE / 2022-05-31 06:44:00 Amalia Deleon [facility] BEDSIDE [facility] HIGH SENSITIVITY TROPONIN I 2022-05-31 06:35:00 Eli Deleon [facility] ECG 12-LEAD 2022-05-31 06:20:[address] [facility] ECG 12-LEAD 2022-05-31 06:20:00 Unknown, Hl7 [facility] MAGNESIUM 2022-05-31 04:37:00 Ramirez [facility] PHOSPHORUS 2022-05-31 04:37:00 Ramirez [facility] BASIC METABOLIC PANEL 2022-05-31 04:37:00 Tyler Hardy CH I [facility] CBC W/PLT COUNT & AUTO 2022-05-31 04:37:00 Tyler Hardy HI [facility] CBC W/PLT COUNT & AUTO 2022-05-31 04:37:00 Syeda Sanchez [facility] POCT-GLUCOSE METER 2022-05-30 21:10:00 Merissa Ambrocio [facility] CT ABDOMEN/PELVIS WITHOUT 2022-05-30 18:15:00 Tyler Hardy [facility] IV CONTRAST [facility] POCT-GLUCOSE METER 2022-05-30 16:54:00 Merissa Ambrocio [facility] SARS-COV2/RT-PCR ([facility] & 2022-05-30 16:21:00 Tyler Hardy [facility] REF LABS) Medical Center NM MYOCARDIAL PERFUSION 2022-05-30 14:14:00 Syeda Sanchez Juan [facility] PET/CT (REST & STRESS) Medical C enter ECG 12-LEAD 2022-05-30 13:25:46 Unknown, Hl7 [facility] ECG 12-LEAD 2022-05-30 13:25:46 Unknown, Hl7 [facility] VITAMIN B12 BINDING 2022-05-30 09:39:00 [facility] VITAMIN B1 2022-05-30 09:39:00 [facility] POCT-GLUCOSE METER 2022-05-30 07:54:00 Merissa Ambrocio [facility] MAGNESIUM 2022-05-30 04:29:[facility] 2022-05-30 04:29:00 [facility] BASIC METABOLIC PANEL 2022-05-30 04:29:00 Tyler Hardy CH [facility] CBC W/PLT COUNT & AUTO 2022-05-30 04:29:00 Tyler Hardy [facility] CBC W/PLT COUNT & AUTO 2022-05-30 04:29:00 Syeda Sanchez [facility] POCT-GLUCOSE METER 2022-05-29 21:05:00 Merissa Ambrocio [facility] CAROTID DOPPLER BILATERAL 2022-05-29 20:25:00 Tyler Hardy [facility] POCT-GLUCOSE METER 2022-05-29 16:43:00 Cristóbal Merissa [facility] CARCINOEMBRYONIC ANTIGEN 2022-05-29 16:18:00 Tyler Hardy [facility] (CEA) [facility] CARBOHYDRATE ANTIGEN 19-9 2022-05-29 16:18:00 Tyler Hardy [facility] (CA 19-9) [facility] ALPHA FETOPROTEIN (AFP), 2022-05-29 16:18:00 Tyler Hardy [facility] TUMOR MARKER [facility] POCT-GLUCOSE METER 2022-05-29 11:14:00 Merissa Ambrocio [facility] POCT-GLUCOSE METER 2022-05-29 07:24:00 Merissa Ambrocio [facility] BASIC METABOLIC PANEL 2022-05-29 04:34:00 Guzmán [facility] PROTHROMBIN TIME/INR 2022-05-29 04:34:00 Ramirez [facility] MAGNESIUM 2022-05-29 04:34:00 Ramirez [facility] PHOSPHORUS 2022-05-29 04:34:00 Guzmán [facility] CBC W/PLT COUNT & AUTO 2022-05-29 04:34:00 Joslyn Guzmán CH I [facility] CBC W/PLT COUNT & AUTO 2022-05-29 04:34:00 Joslyn Guzmán I [facility] VASCULAR DIAGRAM -SCAN 2022-05-29 00:00:00 Provider, [facility] CARDIAC CATH REPORT - SCAN 2022-05-29 00:00:00 Provider, [facility] Plan of Care Planned Activity Planned Date Details Comments Source Future Scheduled 2025-06-23 Lipid panel (procedure) [facility] [code = 18478341] Medical Ce nter Future Scheduled 2023-07-15 Tobacco Cessation [facility]00 Counseling [facility] Medical [...] [facility] 2) [code = SHINGLES [facility] VACCINES (1 of 2)] Future Scheduled 2010 SHINGLES VACCINES ([address] [facility] 00:00:00 2) [code = SHINGLES [facility] VACCINES (1 of 2)] Future Scheduled 1995 Lipid panel (procedure) [facility] 00:00:00 [code = 91869169] Medical Ce nter Future Scheduled 1979 DTAP/TDAP/TD [...] [facility] 00:[facility] [code = CT Colonography [facility] (combo)] Future Scheduled 1960 Screening for malignant [facility] 00:00:00 neoplasm of colon Medical Ce nter (procedure) [code = 745043656] Future Scheduled 1960 Screening for malignant [facility] 00:00:00 neoplasm of colon Medical Ce nter (procedure) [code = 509100993] Future Scheduled 1960 Screening for malignant [facility] 00:00:00 neoplasm of colon Medical Ce nter (procedure) [code = 035243837] Future Scheduled 1960 Screening for malignant [facility] 00:00:00 neoplasm of colon Medical Ce nter (procedure) [code = 181248082] Future Scheduled 1960 Sigmoidoscopy [code = [facility] S[facility]oscopy] Medical Cente r Future Scheduled 1960 CT Colonography (combo) [facility] 00:00:00 [code = CT Colonography [facility] (combo)] Future Scheduled 1960 Screening for malignant [facility] 00:00:00 neoplasm of colon Medical Ce nter (procedure) [code = 903684392] Future Scheduled 1960 Screening for malignant [facility] 00:00:00 neoplasm of colon Medical Ce nter (procedure) [code = 177021518] Future Scheduled 1960 Screening for malignant [facility] 00:00:00 neoplasm of colon Medical Ce nter (procedure) [code = 364405567] Future Scheduled 1960 Screening for malignant [facility] 00:00:00 neoplasm of colon Medical Ce nter (procedure) [code = 987360061] Future Scheduled 1960 Sigmoidoscopy [facility]code [facility]oscopy] Medical Cente r Encounters Start End Encounter Admission Attending Care Care Encounter Source Date/Time Date/Time Type Type Clinicians Facility Department ID 2022-06-18 2022-07-24 Inpatient UR ANICETO TA [facility] Neurology [id number] SLE 23:46:00 19:13:00 2022-06-18 2022-07-24 Hospital UR Syeda Sanchez Juan [facility] [id number] 23:46[facility]00 19:13:00 Encounter Aniceto Ta, Alexis Bateman, Teja Guo, Arin Wynne 2022-06-19 2022-06-19 Travel [facility] [id number] [facility] 00[facility]00 [facility] 2022-05-29 2022-06-09 Inpatient ER NANCYSANIYA MAXWELL General Med [id number] SLE 01:15:00 16:04:00 [facility] 2022-05-29 2022-06-09 Hospital ER Merissa Ambrocio [facility] [id number] [facility] 01:15[facility]00 16:04:00 Encounter DanielSyeda melendez tulio [facility] 2022-06-02 2022-06-02 Surgery Sen, [facility] [id number] 12:15:00 14:52:00 [facility] 2022-05-30 2022-05-[address] [facility] [id number] 00:00[facility]00 00:00:00 Only [facility] 2022-05-29 2022-05-29 Travel [facility] [id number] [facility] 00:[facility] 00:00:00 [facility] Results Test Description Test Time Test [...] s not applicable for dialysis ghada ma Slip Seat Coverer ID - [id number] 12:41:59 Test Item Value Reference Range Interpretation Comments SODIUM (BEAKER) (test code = 381) 134 meq/L 136-145 L POTASSIUM (BEAKER) (test code = 4.3 meq/L 3.5-5.1 379) CHLORIDE (BEAKER) (test code = 382) 98 meq/L 98-107 CO2 (BEAKER) (test code = 355) 28 meq/L 22-29 Slip Seat Coverer ID - PAVAN BPOC-Glucose [id number] 11:45:50 Test Item Value Reference Range Interpretation Comments POC-Glucose Meter (test 102 mg/dL 70-110 : TE STED AT [facility] code = 1538) [address] [place], [address] 30: Slip Seat Coverer/Techni ilir ID = [id number] for TSERING FARR Lab Interpretation (test Normal code = 49633-5) [facility] [id number] 11:45:50 Test Item Value Reference Range Interpretation Comments POC-GLUCOSE METER 102 mg/dL 70-110 : TESTED A T [facility] 6720 (BEAKER) (test code = [facility], 1538) [address]83: Slip Seat Coverer/Techni ilir ID = [id number] for IRINA CHRISTENSEN POCT-GLUCOSE [id number] 08:25:45 Test Item Value Reference Range Interpretation Comments POC-GLUCOSE METER 108 mg/dL 70-110 : TESTED A T [facility] 6720 (BEAKER) (test code = [facility], 1538) 48372: Slip Seat Coverer/Techni ilir ID = [id number] for Katie Cruz POCT-GLUCOSE [id number] 17:31:55 Test Item Value Reference Range Interpretation Comments POC-GLUCOSE METER 108 mg/dL 70-110 : TESTED A T [facility] 67[facility] (BEAKER) (test code = [facility], 1538) 32538: Slip Seat Coverer/Techni ilir ID = [id number] for IRINA CHRISTENSEN POCT-GLUCOSE [id number] 12:55:04 Test Item Value Reference Range Interpretation Comments POC-GLUCOSE METER 111 mg/dL 70-110 H : TESTED A T [facility] 67[facility] (BEAKER) (test code = [facility], 1538) 29488: Slip Seat Coverer/Techni ilir ID = [id number] for Dat Silva POCT-GLUCOSE [id number] 09:03:52 Test Item Value Reference Range Interpretation Comments POC-GLUCOSE METER 128 mg/dL 70-110 H : TESTED A T [facility] 67[facility] (BEAKER) (test code = [facility], 1538) 91845: Slip Seat Coverer/Techni ilir ID = [id number] for IRINA CHRISTENSEN SARS-CoV2/RT-PCR (Asymptomatic ONLY)2022-07-20 07:10:51 Test Item Value Reference Interpretation Comments Range SARS-COV2/RT-PCR Negative Negative The SARS-Co V-2 (test code = target nucleic 82159-0) acids are not detected in thi s [...] revoked sooner. Fact Sheet for Healthcare Providers: https://www.[employer]/Documents/Xp ert%20Xpress%20SAR S%20CoV-2/Fact%20S heets/302-3802%20S ARS-COV-2%20HEALTH CARE%20PROVIDERS%2 0FACT%20SHEET.pdf Fact Sheet for Healthcare Patients: https://www.[employer]/Documents/Xp ert%20Xpress%20SAR S%20CoV-2/Fact%20S heets/302-3801%20S ARS-COV-2%20PATIEN T%20FACT%20SHEET.p df Lab Interpretation Normal (test code = 03585-8) [facility] & REF LABS)2022-07-20 07:10:51 Test Item Value Reference Range Interpretation Comments SARS-COV2/RT-PCR Negative Negative The SARS-Co V-2 target (test code = nucleic acids a re not 0663916) detected in thi s specimen. Negative result [...] revoked sooner. Fact Sheet for Healthcare Providers: https://www.[employer] m/Documents/Xpert%20Xpress%20SARS%20CoV-2/Fact%20Sheets/302-3802%19TUDJ-GUG-3%20 HEALTHCARE%20PROVIDERS%20FACT%20SHEET.pdf Fact Sheet for Healthcare Patients: https://www.[employer]/Documents/Xpert%20Xp ress%20SARS%20CoV-2/Fact%20Sheets/302-3801%11RODZ-JNC-4%20PATIENT%20FACT%20SHEET .pdfPOCT-GLUCOSE [id number] 22:07:58 Test Item Value Reference Range Interpretation Comments POC-GLUCOSE METER 111 mg/dL 70-110 H : TESTED A T [facility] 6720 ([employer]) (test code = [employer] [facility], 1538) 56759: Slip Seat Coverer/Techni ilir ID = [id number] for Pravin Santos POCT-GLUCOSE [id number] 18:42:03 Test Item Value Reference Range Interpretation Comments POC-GLUCOSE METER 129 mg/dL 70-110 H : TESTED A T [facility] 67[facility] ([employer]) (test code = [facility], 1538) 56339: Slip Seat Coverer/Techni ilir ID = [id number] for Mattie DELGADO POCT-GLUCOSE [id number] 08:03:40 Test Item Value Reference Range Interpretation Comments POC-GLUCOSE METER 112 mg/dL 70-110 H : TESTED A T [facility] (BEAKER) (test code = [facility], 1538) 23677: Slip Seat Coverer/Techni ilir ID = [id number] for Mattie DELGADO BASIC METABOLIC [id number] 06:25:19 Test Item Value Reference Range Interpretation [...] not appl icable for dialysis patien ts Slip Seat Coverer ID - MARCOPOCT-GLUCOSE [id number] 22:05:09 Test Item Value Reference Range Interpretation Comments POC-GLUCOSE METER 111 mg/dL 70-110 H : TESTED A T [facility] (BEAKER) (test code = [facility], 1538) 62731: Slip Seat Coverer/Techni ilir ID = [id number] for Pravin Santos POCT-GLUCOSE [id number] 21:56:03 Test Item Value Reference Range Interpretation Comments POC-GLUCOSE METER 113 mg/dL 70-110 H : TESTED A T [facility] 67[facility] (BEAKER) (test code = [facility], 1538) 86258: Slip Seat Coverer/Techni ilir ID = [id number] for [place] POCT-GLUCOSE [id number] 13:07:32 Test Item Value Reference Range Interpretation Comments POC-GLUCOSE METER 121 mg/dL 70-110 H : TESTED A T [facility] (BEAKER) (test code = [facility], 1538) 88016: Slip Seat Coverer/Techni ilir ID = [id number] for WE[place]IA POCT-GLUCOSE [id number] 08:10:20 Test Item Value Reference Range Interpretation Comments POC-GLUCOSE METER 138 mg/dL 70-110 H : TESTED A T [facility] (BEAKER) (test code = [facility], 1538) 38655: Slip Seat Coverer/Techni ilir ID = [id number] for [place]IA BASIC METABOLIC [id number] 06:36:32 Test Item Value Reference Range Interpretation [...] not appl icable for dialysis patien ts Slip Seat Coverer ID - MARCOCBC W/PLT COUNT & AUTO [id number] 06:11:06 Test Item Value Reference Range Interpretation [...] PERCENT (BEAKER) (test code = 2801) POCT-GLUCOSE [id number] 21:51:47 Test Item Value Reference Range Interpretation Comments POC-GLUCOSE METER 107 mg/dL 70-110 : TESTED A T [facility] 6720 (BEAKER) (test code = [facility], 153) 84736: Slip Seat Coverer/Techni ilir ID = [id number] for DIANA NAWAF TAYA POCT-GLUCOSE [id number] 17:47:35 Test Item Value Reference Range Interpretation Comments POC-GLUCOSE METER 128 mg/dL 70-110 H : TESTED A T [facility] 6720 (BEAKER) (test code = [facility], 153) 57436: Slip Seat Coverer/Techni ilir ID = [id number] for Um eh, Akumbu POCT-GLUCOSE [id number] 12:56:02 Test Item Value Reference Range Interpretation Comments POC-GLUCOSE METER 114 mg/dL 70-110 H : TESTED A T [facility] 6720 (BEAKER) (test code = [facility], 153) 77398: Slip Seat Coverer/Techni ilir ID = [id number] for Um eh, Akumbu POCT-GLUCOSE [id number] 09:56:26 Test Item Value Reference Range Interpretation Comments POC-GLUCOSE METER 93 mg/dL 70-110 : TESTED A T [facility] 6720 (BEAKER) (test code = [facility], 153) 59710: Slip Seat Coverer/Techni ilir ID = [id number] for Umeh , Akumbu BASIC METABOLIC [id number] 06:52:25 Test Item Value Reference Range Interpretation Comments SODIUM (BEAKER) 134 meq/L 136-145 L (test code = 381) POTASSIUM 4.3 meq/L 3.5-5.1 (BEAKER) (test code = 379) CHLORIDE (BEAKER) 103 meq/L 98-107 (test code = 382) CO2 (BEAKER) 24 meq/L 22-29 (test code = 355) BLOOD UREA 17 mg/dL 7-21 NITROGEN (BEAKER) (test code = 354) CREATININE 0.78 mg/dL 0.57-1.25 (BEAKER) (test code = 358) GLUCOSE RANDOM 88 mg/dL 70-105 (AKER) (test code = 652) CALCIUM (BEAKER) 9.1 mg/dL 8.4-10.2 (test code = 697) EGFR ([facility]) 101 Interpretatio n of eGFR (test code [...] not appl icable for dialysis patien ts Slip Seat Coverer ID - ADMINPOCT-GLUCOSE [id number] 21:31:13 Test Item Value Reference Range Interpretation Comments POC-GLUCOSE METER 123 mg/dL 70-110 H : Notified RN/MD: ([facility]) (test code = TESTED AT [place] [address] 1538) [facility], [address]: Slip Seat Coverer/Techni ilir ID = [id number] for LATHBRIDGE, JILLIAN ICE POCT-GLUCOSE [id number] 18:00:17 Test Item Value Reference Range Interpretation Comments POC-GLUCOSE METER 124 mg/dL 70-110 H : TESTED A T [facility] 67 ([facility]) (test code = [facility], 1538) 61465: Slip Seat Coverer/Techni ilir ID = [id number] for AK INSONU, AZIZA POCT-GLUCOSE [id number] 13:13:09 Test Item Value Reference Range Interpretation Comments POC-GLUCOSE METER 136 mg/dL 70-110 H : TESTED A T [facility] 6720 (BEAKER) (test code = [facility] [place], 1538) 89[address]: Slip Seat Coverer/Techni ilir ID = [id number] for AZIZA US POCT-GLUCOSE [id number] 08:37:32 Test Item Value Reference Range Interpretation Comments POC-GLUCOSE METER 108 mg/dL 70-110 : TESTED A T [facility] 6720 (BEAKER) (test code = [facility] [place], 1538) [address]: Slip Seat Coverer/Techni ilir ID = [id number] for AZIZA US BASIC METABOLIC [id number] 04:49:51 Test Item Value Reference Range Interpretation [...] not appl icable for dialysis patien ts Slip Seat Coverer ID - MARCOCBC W/PLT COUNT & AUTO [id number] 04:29:03 Test Item Value Reference Range Interpretation [...] PERCENT (BEAKER) (test code = 2801) POCT-GLUCOSE [id number] 21:55:25 Test Item Value Reference Range Interpretation Comments POC-GLUCOSE METER 132 mg/dL 70-110 H : TESTED A T [facility] 6720 (BEAKER) (test code = [facility], 1538) 38864: Slip Seat Coverer/Techni ilir ID = [id number] for Pravin Santos POCT-GLUCOSE [id number] 16:54:38 Test Item Value Reference Range Interpretation Comments POC-GLUCOSE METER 172 mg/dL 70-110 H : TESTED A T [facility] 6720 (BEAKER) (test code [facility], = 1538) 88402: Slip Seat Coverer/Techni ilir ID = [id number] for Anthony Boyer CORTISOL,60 [id number] 13:32:09 Test Item Value Reference Range Interpretation [...] a study by Chris et al (DRISS 2000,283(8):4006-55), the ACTH Stimulation Test provides important prognostic [...] Pharmacy Policy and Procedure Section on The Source.Slip Seat Coverer ID - MANPREET GPOCT-GLUCOSE METER 2022-07-15 13:23:53 Test Item Value Reference Range Interpretation Comments POC-GLUCOSE METER 96 mg/dL 70-110 : TESTED A T [facility] 6720 ([facility]) (test code = [place] [place], 1538) [address]: Slip Seat Coverer/Techni ilir ID = [id number] for Anthony Boyer CORTISOL,30 [id number] 12:48:04 Test Item Value Reference Range Interpretation [...] Pharmacy Policy and Procedure Section on The Source.Slip Seat Coverer ID - MANPREET GProtein Electrophoresis, [id number] 12:05:39 Test Item Value Reference Range Interpretation Comments Pre-Albumin (CSF) TNP Test Not (test code = 24365-0) Perfor med. Albumin, CSF (test TNP Test Not code = 1746-7) Performed. Tqbmk-8-Dslkfaja CSF TNP Test No t (test code = 03740-1) Perfor med. Prplr-5-Tkmoaenr CSF TNP Test No t (test code = 6285148) Perfor med. Beta Globulin (CSF) TNP Test Not (test code = 23520-2) Perfor med. Gamma Globulin (CSF) TNP Test No t (test code = 39483-1) Perfor med. Interpretation (test TNP Test No t code = 7448050) Performed. Specimen quantity not sufficient afte r other testscompleted. Test not performed. JUANA (test code = JUANA) Performing Lab 15 [facility] [address] [place], [place] Nathaniel Ceja MD, PhD [facility]ORT[facility]OL,[id number] 11:03:25 Test Item Value Reference Range Interpretation [...] Pharmacy Policy and Procedure Section on The Source.Slip Seat Coverer ID - MANPREET GPOCT-GLUCOSE METER 2022-07-15 09:29:24 Test Item Value Reference Range Interpretation Comments POC-GLUCOSE METER 121 mg/dL 70-110 H : TESTED A T [facility] 6720 (BEAKER) (test code [facility], = 1538) 169[address]: Slip Seat Coverer/Techni ilir ID = [id number] for Anthony Boyer BASIC METABOLIC [id number] 05:53:47 Test Item Value Reference Range Interpretation [...] not appl icable for dialysis patien ts Slip Seat Coverer ID - MANPREET [id number] 05:44:11 Test Item Value Reference Range Interpretation [...] of thrombosis is within 95-100% range.POCT- GLUCOSE [id number] 21:54:00 Test Item Value Reference Range Interpretation Comments POC-GLUCOSE METER 112 mg/dL 70-110 H : TESTED A T [facility] 6720 (BEAKER) (test code = [facility], 1538) 94725: Slip Seat Coverer/Techni ilir ID = [id number] for Pravin Santos POCT-GLUCOSE [id number] 17:50:55 Test Item Value Reference Range Interpretation Comments POC-GLUCOSE METER 112 mg/dL 70-110 H : TESTED A T [facility] 6720 (BEAKER) (test code = [facility], 1538) 93674: Slip Seat Coverer/Techni ilir ID = [id number] for CHERYL THOMPSON POCT-GLUCOSE [id number] 13:03:01 Test Item Value Reference Range Interpretation Comments POC-GLUCOSE METER 102 mg/dL 70-110 : TESTED A T [facility] 6720 (BEAKER) (test code = [facility], 1538) 62775: Slip Seat Coverer/Techni ilir ID = [id number] for Katie Cruz RAD, CHEST, 1 VIEW, NON [id number] 11:54:00Reason for exam:- >hypoxia/SOBShould this be performed at the bedside?->Yes [facility] : 1960 Sex: MFINAL REPORT INDICATION: hypoxia/SOB COMPARISON: None TECHNIQUE: Single frontal view of the chest. FINDINGS: Lungs and pleura: Clear lungs. No effusion.Heart and mediastinum: Normal heart size. Unremarkable mediastinal contours.Osseous structures: No acute abnormality.Other: None. IMPRESSION: No acute intrathoracic abnormality. Signed: Tatyana Bang Verified Date/Time: 07/14/2022 11:54:52 Reading Location: [address] Reading Room POCT-GLUCOSE [id number] 10:02:04 Test Item Value Reference Range Interpretation Comments POC-GLUCOSE METER 99 mg/dL 70-110 : TESTED A T [facility] 6720 (BEAKER) (test code = [facility], 1538) 66504: Slip Seat Coverer/Techni ilir ID = [id number] for Jesika Trujillo POCT-GLUCOSE [id number] 08:32:19 Test Item Value Reference Range Interpretation Comments POC-GLUCOSE METER 101 mg/dL 70-110 : TESTED A T [facility] 6720 (BEAKER) (test code = [facility], 1538) 29911: Slip Seat Coverer/Techni ilir ID = [id number] for Yanna torrezJameelcristianu HEPATIC FUNCTION [id number] 06:23:29 Test Item Value Reference Range Interpretation [...] code = 61 U/L 6-55 H 347) Slip Seat Coverer ID - MARCOBASIC METABOLIC [id number] 06:23:28 Test Item Value Reference Range Interpretation [...] not appl icable for dialysis patien ts Slip Seat Coverer ID - MARCOCBC W/PLT COUNT & AUTO [id number] 06:04:21 Test Item Value Reference Range Interpretation [...] PERCENT (BEAKER) (test code = 2801) POCT-GLUCOSE [id number] 22:04:25 Test Item Value Reference Range Interpretation Comments POC-GLUCOSE METER 109 mg/dL 70-110 : TESTED A T [facility] 6720 (BEAKER) (test code = [facility], 1538) 53704: Slip Seat Coverer/Techni ilir ID = [id number] for Pravin Santos BASIC METABOLIC [id number] 17:53:02 Test Item Value Reference Range Interpretation [...] (test code = 697) EGFR (BEAKER) 101 Interpretati on of eGFR (test code = [...] not appl icable for dialysis patien ts Slip Seat Coverer ID - BSSARS-COV2/RT-PCR ([facility])2022-07-13 17:37:27 Test Item Value Reference Range Interpretation Comments SARS-COV2/RT-PCR Negative Negative The SARS-Co V-2 target (test code = nucleic acids a re not 3754075) detected in thi s specimen. Negative result [...] individuals suspected of CO VID-19 by [facility] provider. This test has been authorized [...] revoked sooner. Fact Sheet for Healthcare Providers: https://www.PreApps m/Documents/Xpert%20Xpress%20SARS%20CoV-2/Fact%20Sheets/302-3802%52SSFA-RMT-3%20 HEALTHCARE%20PROVIDERS%20FACT%20SHEET.pdf Fact Sheet for Healthcare Patients: https://www.CoolSystems/Documents/Xpert%20Xp ress%20SARS%20CoV-2/Fact%20Sheets/302-3801%94TZVE-GSE-6%20PATIENT%20FACT%20SHEET .pdfPOCT-GLUCOSE [id number] 17:30:14 Test Item Value Reference Range Interpretation Comments POC-GLUCOSE METER 96 mg/dL 70-110 : TESTED A T [facility] 6720 ([facility]) (test code = [facility] [place], 1538) 0[address]71: Slip Seat Coverer/Techni ilir ID = [id number] for IRINA MENDOZA POCT-GLUCOSE [id number] 12:21:32 Test Item Value Reference Range Interpretation Comments POC-GLUCOSE METER 114 mg/dL 70-110 H : TESTED A T [facility] 6720 (BEAKER) (test code = [facility] [place], 1538) 8[address]: Slip Seat Coverer/Techni ilir ID = [id number] for IRINA CHRISTENSEN POCT-GLUCOSE [id number] 08:36:47 Test Item Value Reference Range Interpretation Comments POC-GLUCOSE METER 116 mg/dL 70-110 H : TESTED A T [facility] 6720 (BEAKER) (test code = [facility] [place], 1538) 29729: Slip Seat Coverer/Techni ilir ID = [id number] for Um ehJameelumbu BASIC METABOLIC [id number] 04:57:33 Test Item Value Reference Range Interpretation [...] not appl icable for dialysis patien ts Slip Seat Coverer ID - PIAYA LPOCT-GLUCOSE [id number] 21:25:05 Test Item Value Reference Range Interpretation Comments POC-GLUCOSE METER 113 mg/dL 70-110 H : TESTED A T [facility] 6720 (BEAKER) (test code [facility], = 1538) 09075: Slip Seat Coverer/Techni ilir ID = [id number] for Kike Ramos POCT-GLUCOSE [id number] 18:06:10 Test Item Value Reference Range Interpretation Comments POC-GLUCOSE METER 117 mg/dL 70-110 H : TESTED A T [facility] 6720 (BEAKER) (test code = [facility], 1538) 07108: Slip Seat Coverer/Techni ilir ID = [id number] for An sonia, Naila POCT-GLUCOSE [id number] 12:34:06 Test Item Value Reference Range Interpretation Comments POC-GLUCOSE METER 114 mg/dL 70-110 H : TESTED A T [facility] 6720 (BEAKER) (test code = [facility], 1538) 41657: Slip Seat Coverer/Techni ilir ID = [id number] for An sonia, Naila POCT-GLUCOSE [id number] 07:54:16 Test Item Value Reference Range Interpretation Comments POC-GLUCOSE METER 104 mg/dL 70-110 : TESTED A T [facility] 6720 (BEAKER) (test code = [facility], 1538) 73601: Slip Seat Coverer/Techni ilir ID = [id number] for An sonia, Naila BASIC METABOLIC [id number] 06:47:01 Test Item Value Reference Range Interpretation [...] rted eGFR is based on the CKD-EPI 1 equation t hat does not use a race coefficientEsti mated GFR is not as accur ate as Creatinine Brigitte shonda in predicting glom erular filtration rate . Estimated GFR is not appl icable for dialysis patien ts Slip Seat Coverer ID - PIAYA LCBC W/PLT COUNT & AUTO [id number] 05:35:20 Test Item Value Reference Range Interpretation [...] PERCENT (BEAKER) (test code = 2801) POCT-GLUCOSE [id number] 21:32:03 Test Item Value Reference Range Interpretation Comments POC-GLUCOSE METER 120 mg/dL 70-110 H : TESTED A T [facility] 6720 (BEAKER) (test code [facility], = 1538) 85723: Slip Seat Coverer/Techni ilir ID = [id number] for Kike Ramos POCT-GLUCOSE [id number] 17:52:43 Test Item Value Reference Range Interpretation Comments POC-GLUCOSE METER 112 mg/dL 70-110 H : TESTED A T [facility] 6720 (BEAKER) (test code = [facility], 153) 04488: Slip Seat Coverer/Techni ilir ID = [id number] for Um eh, Akumbu POCT-GLUCOSE [id number] 12:38:06 Test Item Value Reference Range Interpretation Comments POC-GLUCOSE METER 106 mg/dL 70-110 : TESTED A T [facility] 6720 (BEAKER) (test code = [facility], 153) 55307: Slip Seat Coverer/Techni ilir ID = [id number] for Um eh, Akumbu POCT-GLUCOSE [id number] 07:54:24 Test Item Value Reference Range Interpretation Comments POC-GLUCOSE METER 115 mg/dL 70-110 H : TESTED A T [facility] 6720 (BEAKER) (test code = [facility], 1538) 88948: Slip Seat Coverer/Techni ilir ID = [id number] for Um eh, Akumbu [id number] 05:46:10 Test Item Value Reference Range Interpretation Comments CORTISOL, TOTAL (BEAKER) (test code 3.7 ug/dL 3.7-19.4 = 2755) Slip Seat Coverer ID - MARCOBASIC METABOLIC [id number] 05:28:46 Test Item Value Reference Range Interpretation [...] not appl icable for dialysis patien ts Slip Seat Coverer ID - MARCOCBC W/PLT COUNT & AUTO [id number] 05:10:21 Test Item Value Reference Range Interpretation [...] PERCENT (BEAKER) (test code = 2801) POCT-GLUCOSE [id number] 17:59:25 Test Item Value Reference Range Interpretation Comments POC-GLUCOSE METER 113 mg/dL 70-110 H : TESTED A T [facility] 6720 (BEAKER) (test code = [facility] [place], 1538) 50652: Slip Seat Coverer/Techni ilir ID = [id number] for Um eh, Akumbu POCT-GLUCOSE [id number] 11:49:37 Test Item Value Reference Range Interpretation Comments POC-GLUCOSE METER 126 mg/dL 70-110 H : TESTED A T [facility] 6720 (BEAKER) (test code = [facility], 1538) 38401: Slip Seat Coverer/Techni ilir ID = [id number] for Um eh, Akumbu POCT-GLUCOSE [id number] 07:38:24 Test Item Value Reference Range Interpretation Comments POC-GLUCOSE METER 99 mg/dL 70-110 : TESTED A T [facility] 6720 (BEAKER) (test code = [facility], 1538) 28246: Slip Seat Coverer/Techni ilir ID = [id number] for Umeh , Akumbu POCT-GLUCOSE [id number] 07:33:24 Test Item Value Reference Range Interpretation Comments POC-GLUCOSE METER 102 mg/dL 70-110 : TESTED A T [facility] 6720 (BEAKER) (test code = [facility], 1538) 34402: Slip Seat Coverer/Techni ilir ID = [id number] for Pravin Santos URIC [id number] 06:53:20 Test Item Value Reference Range Interpretation Comments URIC ACID (BEAKER) 5.3 mg/dL 2.6-7.2 Specimen slightly (test code = 773) hemolyzed Slip Seat Coverer ID - MARCOBASIC METABOLIC [id number] 06:31:31 Test Item Value Reference Range Interpretation [...] not appl icable for dialysis patien ts Slip Seat Coverer ID - BALAAYA LSodium Na-Stat [id number] 06:15:10 Test Item Value Reference Range Interpretation Comments Sodium (test code = 2951-2) 129 meq/L 136-145 L Lab Interpretation (test code = Abnormal 47371-5) [facility] [id number] 06:15:10 Test Item Value Reference Range Interpretation Comments SODIUM (BEAKER) (test code = 381) 129 meq/L 136-145 L CBC W/PLT COUNT & AUTO [id number] 06:03:22 Test Item Value Reference Range Interpretation [...] PERCENT (BEAKER) (test code = 2801) OSMOLALITY, [id number] 16:34:52 Test Item Value Reference Range Interpretation Comments OSMOLALITY, SERUM (BEAKER) (test 264 mOsm/kg 275-295 L code = 615) Osmolality, [id number] 16:20:15 Test Item Value Reference Range Interpretation Comments Osmolality, Ur (test code 360 See_Comment [ Automated message] = 2695-5) The system GeeYee generated this result transmitted ref erence range: 50-1,200 mOsm/kg mOsm/kg . The reference range was not used to int erpret this result as normal/abnormal . Lab Interpretation (test Normal code = 06160-6) [facility], [id number] 16:20:15 Test Item Value Reference Range Interpretation Comments OSMOLALITY URINE 360 mOsm/kg See_Comment [Automated message] (BEAKER) (test code = The sy stem which 614) generated this result transmitted ref erence range: 50-1,200 mOsm/kg. The reference range was not used to int erpret this result as normal/abnormal . Sodium, random [id number] 14:08:09 Test Item Value Reference Range Interpretation Comments Sodium Urine (test 46 meq/L code = 2955-3) JUANA (test code = Reference Range: No JUANA) NormalsOperator ID - BS [facility], RANDOM [id number] 14:08:09 Test Item Value Reference Range Interpretation Comments SODIUM URINE (BEAKER) (test code = 46 meq/L 243) Reference Range: No NormalsOperator ID - BSChloride, random [id number] 14:08:08 Test Item Value Reference Range Interpretation Comments Chloride, Urine (test 32 meq/L 20-330 code = 59055-4) JUANA (test code = JUANA) Reference Range: No NormalsOperator ID - BS Lab Interpretation Normal (test code = 79222-0) [facility], RANDOM [id number] 14:08:08 Test Item Value Reference Range Interpretation Comments CHLORIDE URINE (BEAKER) (test code = 32 meq/L 20330 682) Reference Range: No NormalsOperator ID - BSPOCT-GLUCOSE [id number] 11:28:19 Test Item Value Reference Range Interpretation Comments POC-GLUCOSE METER 128 mg/dL 70-110 H : TESTED A T [facility] 6720 (BEAKER) (test code = [facility], 1538) 71451: Slip Seat Coverer/Techni ilir ID = [id number] for Um eh, Akumbu POCT-GLUCOSE [id number] 08:00:24 Test Item Value Reference Range Interpretation Comments POC-GLUCOSE METER 116 mg/dL 70-110 H : TESTED A T [facility] 6720 (BEAKER) (test code = [facility], 1538) 58494: Slip Seat Coverer/Techni ilir ID = [id number] for Um eh, Akumbu POCT-GLUCOSE [id number] 07:46:34 Test Item Value Reference Range Interpretation Comments POC-GLUCOSE METER 101 mg/dL 70-110 : TESTED A T [facility] 6720 (BEAKER) (test code = [facility], 1538) 79272: Slip Seat Coverer/Techni ilir ID = [id number] for Bailey torrez BASIC METABOLIC [id number] 05:55:43 Test Item Value Reference Range Interpretation [...] not appl icable for dialysis patien ts Slip Seat Coverer ID - MANPREET GCBC W/PLT COUNT & AUTO [id number] 04:46:43 Test Item Value Reference Range Interpretation [...] PERCENT (BEAKER) (test code = 2801) POCT-GLUCOSE [id number] 21:24:45 Test Item Value Reference Range Interpretation Comments POC-GLUCOSE METER 100 mg/dL 70-110 : TESTED A T [facility] 6720 (BEAKER) (test code [facility], = 1538) 78207: Slip Seat Coverer/Techni ilir ID = [id number] for Kike Ramos AB SCR,IFA,[id number] 12:39:35 Test Item Value Reference Range Interpretation Comments Tissue Cells, CSF SEE BELOW No fluores cence (test code = observed on [place] 1354602) tissue. PHOENIX-1 (test code NEGATIVE NEGATIVE = 3088) PHOENIX-2 (test code NEGATIVE NEGATIVE = 3089) PH[place]IX-3 (test code NEGATIVE NEGATIVE = 3090) PCA1 (YO) AB, NEGATIVE NEGATIVE IFA, CSF (QUEST) (test code = 7373949) PCA2 AB, IFA, CSF NEGATIVE NEGATIVE (QUEST) (test code = 7228971) REPRODUCTION MACHINE LOADER-TR (DNER) AB, NEGATIVE NEGATIVE IFA,CSF (QUEST) (test code = 1534388) AGNA/SOX1 AB, NEGATIVE NEGATIVE IFA, CSF (QUEST) (test code = 2830129) AMPHIPHYSIN (test NEGATIVE NEGATIVE code = 3093) CRMP5/CV2 AB, NEGATIVE NEGATIVE IFA, CSF (QUEST) (test code = 2489675) MARIAMA-65 (test code NEGATIVE NEGATIVE = 20040319) AQUAPORIN-4 AB, NEGATIVE NEGATIVE If specific neuronal IFA, CSF (QUEST) autoantibod ies were (test code = not detected, i t does 9475004) not exclude anidiopathic or paraneoplastic autoimmune neurological [...] the Qu est autoimmuneneuro logy website(https:/ /testd irectory.sem[employer]/test/t est-gu ides/CFParaneop lastic Syndromes/paran eoplas tic-neurologica l-synd romes-laborator y-supp hio-zp-jxrpqbud s) This test was developed and i ts analytical performance characteristics havebeen determ ined by [facility] .It has not been cl eared or approved by FDA. This assay has been validatedpursua nt to the CLIA regula tions and is used for clinical purpos es. JUANA (test code = Performing Lab EZ JUANA) [facility] [address] [place] [address] Mitchell Zhong MD, PhD, YOLYKaiser Permanente Medical CenterAQP4 AB (IGG), SCREEN, [id number] 12:39:35 Test Item Value Reference Range Interpretation Comments AQP4 AB (IGG), TNP NEGATIVE Test not perf ormed. SCREEN, CSF Reflex testing not QUEST) (test required since code = established 6947130) criteriawas not met. JUANA (test code Performing Lab EZ = JUANA) [facility] [id number] [place] [address] Mitchell Zhong MD, PhD, YOLYKaiser Permanente Medical CenterAQP4 AB (IGG),TITER,[id number] 12:39:35 Test Item Value Reference Range Interpretation Comments AQP4 AB TNP See_Comment Test not perfor med. (IGG),TITER,CS Reflex testin g not F (QUEST) required since (test code = established 6905832) criteriawas not met. [Automated mess age] The system GeeYee generated this result transmit chely reference range : <1:10. The refe rence range was not u sed to interpret th is result as normal/abnormal . JUANA (test code Performing Lab EZ = JUANA) [facility] [address] [place] [address] Mitchell Zhong MD, PhD, YOLYKaiser Permanente Medical CenterANNA-3 Ab, IFA Titer, [id number] 12:39:35 Test Item Value Reference Range Interpretation Comments PHOENIX-3 AB, TNP See_Comment Test not perfor med. TITER, CSF Reflex testing not (QUEST) (test required since code = established 1124937) criteriawas not met. [Automated mess age] The system GeeYee generated this result transmit chely reference range : <1:10. The refe rence range was not u sed to interpret th is result as normal/abnormal . JUANA (test code Performing Lab EZ = JUANA) [facility] [address] [place] [address] Mitchell Zhong MD, PhD, YOLYKaiser Permanente Medical CenterPCA-2 Ab, Titer, [id number] 12:39:35 Test Item Value Reference Range Interpretation Comments REPRODUCTION MACHINE LOADER-2 AB, TNP See_Comment Test not perfor med. TITER, CSF Reflex testing not (QUEST) (test required since code = established 4588962) criteriawas not met. [Automated mess age] The system [facility] h generated this result transmit chely reference range : <1:10. The refe rence range was not u sed to interpret th is result as normal/abnormal . JUANA (test code Performing Lab EZ = JUANA) [facility] [address] [place] [address] Mitchell Zhong MD, PhD, [facility] HospitalPARANEOPLASTIC AB, LB, [id number] 12:39:35 Test Item Value Reference Range Interpretation Comments ANNA1 (HU) AB, LB, TNP See_Comment Test not CSF (QUEST) (test performed. Reflex code = [id number]) testing not required since established criteriawas not met. [Automated message] The system which generated this result transmit chely reference range : <11 SI. The reference range was not used to interpret this result as normal/abnormal . ANNA2 (RI) AB, LB, TNP See_Comment Test not CSF (QUEST) (test performed. Reflex code = 7378813) testing not required since established criteriawas not met. [Automated message] The system which generated this result transmit chely reference range : <11 SI. The reference range was not used to interpret this result as normal/abnormal . PCA1 (YO) AB, LB, TNP See_Comment Test not CSF (QUEST) (test performed. Reflex code = 7020716) testing not required since established criteriawas not met. [Automated message] The system which generated this result transmit chely reference range : <11 SI. The reference range was not used to interpret this result as normal/abnormal . REPRODUCTION MACHINE LOADER-TR (DNER) AB, TNP See_Comment Test not LB, CSF (QUEST) performed. R eflex (test code = testing not 1030238) required since established criteriawas not met. [Automated message] The system which generated this result transmit chely reference range : <11 SI. The reference range was not used to interpret this result as normal/abnormal . CRMP5/CV2 AB, LB, TNP See_Comment Test not CSF (QUEST) (test performed. Reflex code = 18111118) testing not required since established criteriawas not [...] = Performing Lab EZ JUANA) [facility] [address] [place] [address] Mitchell Zhong MD, PhD, YOLY [facility] HospitalPARANEOPLAS AB,CBA,IFA,[id number] 12:39:35 Test Item Value Reference Range Interpretation [...] (test code Performing Lab EZ = JUANA) [facility] [address] [address] [place] [address] Mitchell Zhong MD, PhD, [facility], [id number] 12:39:35 Test Item Value Reference Range Interpretation Comments NMDAR1,CBA TNP See_Comment Test not perfor med. IFA,TITER,CSF Reflex testing not (QUEST) (test required since code = established ) criteriawas not met. [Automated mess age] The system GeeYee generated this result transmit chely reference range : <1:10. The refe rence range was not u sed to interpret th is result as normal/abnormal . JUANA (test code Performing Lab EZ = JUANA) [address] [address] [place] [address] Mitchell Zhong MD, PhD, [facility], [id number] 12:39:35 Test Item Value Reference Range Interpretation Comments AMPAR1,CBA TNP See_Comment Test not perfor med. IFA,TITER,CSF Reflex testing not (QUEST) (test required since code = established ) criteriawas not met. [Automated mess age] The system GeeYee generated this result transmit chely reference range : <1:10. The refe rence range was not u sed to interpret th is result as normal/abnormal . JUANA (test code Performing Lab EZ = JUANA) [facility] [address] [address] [place] [address] Mitchell Zhong MD, PhD, [facility], [id number] 12:39:35 Test Item Value Reference Range Interpretation Comments AMPAR2,CBA TNP See_Comment Test not perfor med. IFA,TITER,CSF Reflex testing not (QUEST) (test required since code = established 6509511) criteriawas not met. [Automated mess age] The system GeeYee generated this result transmit chely reference range : <1:10. The refe rence range was not u sed to interpret th is result as normal/abnormal . JUANA (test code Performing Lab EZ = JUANA) [address] [place] [address] Mitchell [facility] MD, PhD, [facility], [id number] 12:39:35 Test Item Value Reference Range Interpretation Comments GABABR,CBA TNP See_Comment Test not perfor med. IFA,TITER,CSF Reflex testing not (QUEST) (test required since code = established 6746910) criteriawas not met. [Automated mess age] The system GeeYee generated this result transmit chely reference range : <1:10. The refe rence range was not u sed to interpret th is result as normal/abnormal . JUANA (test code Performing Lab EZ = JUANA) [facility] [address] [address] [place] [address] Mitchell Zhong MD, PhD, [facility], [id number] 12:39:35 Test Item Value Reference Range Interpretation Comments LGI1,CBA TNP See_Comment Test not perfor med. IFA,TITER,CSF Reflex testing not (QUEST) (test required since code = established 2693028) criteriawas not met. [Automated mess age] The system GeeYee generated this result transmit chely reference range : <1:10. The refe rence range was not u sed to interpret th is result as normal/abnormal . JUANA (test code Performing Lab EZ = JUANA) [address] [address] [place] [address] Mitchell Zhong MD, PhD, [facility], [id number] 12:39:35 Test Item Value Reference Range Interpretation Comments CASPR2,CBA TNP See_Comment Test not perfor med. IFA,TITER,CSF Reflex testing not (QUEST) (test required since code = established ) criteriawas not met. [Automated mess age] The system [employer] h generated this result transmit chely reference range : <1:10. The refe rence range was not u sed to interpret th is result as normal/abnormal . JUANA (test code Performing Lab EZ = JUANA) [facility] [address] [place] [address] Mitchell Zhong MD, PhD, YOLY [facility] HospitalVGKC Antibody, [id number] 12:39:35 Test Item Value Reference Range Interpretation Comments VGKC AB, CSF TNP See_Comment Test not perfor med. (QUEST) (test Reflex testing not code = required since ) established criteriawas not met. [Automated mess age] The system GeeYee generated this result transmit chely reference range : <20 pmol/L. The reference range was not used to interpret this result as normal/abnormal . JUANA (test code Performing Lab EZ = JUANA) [facility] [address] [address] [place] [address] Mitchell Zhong MD, PhD, YOLY [facility] HospitalPOCT[facility]UCOSE [id number] 11:18:12 Test Item Value Reference Range Interpretation Comments POC-GLUCOSE METER 102 mg/dL 70-110 : TESTED A T [facility] 6720 (BEAKER) (test code = [facility], 1538) 45128: Slip Seat Coverer/Techni ilir ID = [id number] for eh, Akumbu POCT-GLUCOSE [id number] 07:46:23 Test Item Value Reference Range Interpretation Comments POC-GLUCOSE METER 88 mg/dL 70-110 : TESTED A T [facility] 6720 (BEAKER) (test code = [facility], 1538) 02877: Slip Seat Coverer/Techni ilir ID = [id number] for Umeh , Akumbu BASIC METABOLIC [id number] 05:39:50 Test Item Value Reference Range Interpretation [...] not appl icable for dialysis patien ts Slip Seat Coverer ID - HENRY WCBC W/PLT COUNT & AUTO [id number] 05:12:45 Test Item Value Reference Range Interpretation [...] PERCENT (BEAKER) (test code = 2801) POCT-GLUCOSE [id number] 21:27:14 Test Item Value Reference Range Interpretation Comments POC-GLUCOSE METER 100 mg/dL 70-110 : TESTED A T [facility] 6720 (BEAKER) (test code [facility], = 1538) 66640: Slip Seat Coverer/Techni ilir ID = [id number] for Kike Ramos POCT-GLUCOSE [id number] 17:36:17 Test Item Value Reference Range Interpretation Comments POC-GLUCOSE METER 123 mg/dL 70-110 H : TESTED A T [facility] 6720 (BEAKER) (test code = [facility], 1538) 13935: Slip Seat Coverer/Techni ilir ID = [id number] for Um eh, Akumbu VDRL, [id number] 15:16:52 Test Item Value Reference Range Interpretation Comments VDRL, CSF (test code = Nonreactive Nonreactive 5290-2) JUANA (test code = JUANA) TEST PERFORMED BY [facility] Lab Interpretation (test Normal code = 48538-2) [facility] HospitalOligoclonal [id number] 14:08:48 Test Item Value Reference Interpretation Comments Range Oligoclonal ABSENT ABSENT No oligoclonal bands Bands, CSF (test were identi fied in this code = 8566544) patient's CS F when compared tothei r corresponding s armando sample. Oligocl onal bands are prese nt in the CSF of more hiren n 85% of patients withcl inically definite multip le sclerosis (MS). To distinguish betweenoligoclo nal bands in the CSF due to a peripheral gamm opathy and oligoclonal bands due to local produc tion in the PROGRAM MANAGEMENT SPECIALIST, serum and CSF should be testedsimultane ously. Oligoclonal ban ds can however be obse rved in a variety ofother diseases, e.g., subacute sclerosing panencephalitis , inflammatorypol yneuropat hy, PROGRAM MANAGEMENT SPECIALIST lupus, and brain tumors and infa rctions. The clinicalsig nificance of a numerical band count, determin ed by isoelectric foc using,has not been defini tively defined. The da ta should be interpreted inconjunction w ith all pertinent clini dhaval and laboratory data for this patient. FINAL RESOLUTION (test code = 9564697) JUANA (test code = Performing Lab JUANA) [facility] [address] [place] [address] Mitchell Zhong MD, PhD, YOLY [facility] HospitalPOCT[facility]GLUCOSE [id number] 11:49:53 Test Item Value Reference Range Interpretation Comments POC-GLUCOSE METER 116 mg/dL 70-110 H : TESTED A T [facility] 6720 ([employer]EL[employer]a) (test code = [facility], 153) 57323: Slip Seat Coverer/Techni ilir ID = [id number] for Um eh, Jameelumbu POCT-GLUCOSE [id number] 08:21:56 Test Item Value Reference Range Interpretation Comments POC-GLUCOSE METER 93 mg/dL 70-110 : TESTED A T [facility] 6720 ([employer]) (test code = [facility], 153) 86371: Slip Seat Coverer/Techni ilir ID = [id number] for Bailey Baez POCT-GLUCOSE [id number] 21:03:50 Test Item Value Reference Range Interpretation Comments POC-GLUCOSE METER 98 mg/dL 70-110 : TESTED A T [facility] 6720 (BEAKER) (test code = [facility], 1538) 96541: Slip Seat Coverer/Techni ilir ID = [id number] for Bailey Baez POCT-GLUCOSE [id number] 20:53:34 Test Item Value Reference Range Interpretation Comments POC-GLUCOSE METER 126 mg/dL 70-110 H : TESTED A T [facility] 6720 (BEAKER) (test code [facility], = 1538) 55774: Slip Seat Coverer/Techni ilir ID = [id number] for Kike Ramos POCT-GLUCOSE [id number] 17:03:39 Test Item Value Reference Range Interpretation Comments POC-GLUCOSE METER 91 mg/dL 70-110 : TESTED A T [facility] 6720 (BEAKER) (test code = [facility], 1538) 68182: Slip Seat Coverer/Techni ilir ID = [id number] for Bailey Baez SARS-COV2/RT-PCR ([facility])2022-07-06 12:07:55 Test Item Value Reference Range Interpretation Comments SARS-COV2/RT-PCR Negative Negative The SARS-Co V-2 target (test code = nucleic acids a re not 3628462) detected in thi s specimen. Negative result [...] revoked sooner. Fact Sheet for Healthcare Providers: https://www.PreApps m/Documents/Xpert%20Xpress%20SARS%20CoV-2/Fact%20Sheets/302-3802%35LQUM-NAW-2%20 HEALTHCARE%20PROVIDERS%20FACT%20SHEET.pdf Fact Sheet for Healthcare Patients: https://www.CoolSystems/Documents/Xpert%20Xp ress%20SARS%20CoV-2/Fact%20Sheets/302-3801%43CTWZ-MPB-0%20PATIENT%20FACT%20SHEET .pdfPOCT-GLUCOSE [id number] 08:58:44 Test Item Value Reference Range Interpretation Comments POC-GLUCOSE METER 77 mg/dL 70-110 : TESTED A T [facility] 6720 (BEAKER) (test code = [facility], 153) 97654: Slip Seat Coverer/Techni ilir ID = [id number] for Umeh , Akumbu POCT-GLUCOSE [id number] 22:01:05 Test Item Value Reference Range Interpretation Comments POC-GLUCOSE METER 128 mg/dL 70-110 H : TESTED A T [facility] 6720 (BEAKER) (test code = [facility], 153) 61194: Slip Seat Coverer/Techni ilir ID = [id number] for Ty ler, Reshawn POCT-GLUCOSE [id number] 18:16:22 Test Item Value Reference Range Interpretation Comments POC-GLUCOSE METER 121 mg/dL 70-110 H : TESTED A T [facility] 6720 (BEAKER) (test code = [facility], 153) 80443: Slip Seat Coverer/Techni ilir ID = [id number] for Um eh, Akumbu POCT-GLUCOSE [id number] 11:59:27 Test Item Value Reference Range Interpretation Comments POC-GLUCOSE METER 116 mg/dL 70-110 H : TESTED A T [facility] 6720 (BEAKER) (test code = [facility], 1538) 56636: Slip Seat Coverer/Techni ilir ID = [id number] for Um eh, Jameelumbu POCT-GLUCOSE [id number] 08:22:12 Test Item Value Reference Range Interpretation Comments POC-GLUCOSE METER 122 mg/dL 70-110 H : TESTED A T [facility] 6720 (BEAKER) (test code = [facility], 1538) 98999: Slip Seat Coverer/Techni ilir ID = [id number] for DELIO BANUELOS POCT-GLUCOSE [id number] 21:35:02 Test Item Value Reference Range Interpretation Comments POC-GLUCOSE METER 100 mg/dL 70-110 : TESTED A T [facility] 6720 (BEAKER) (test code = [facility], 153) 31123: Slip Seat Coverer/Techni ilir ID = [id number] for Pravin Santos Protein Electrophoresis, [id number] 18:01:28 Test Item Value Reference Range Interpretation Comments Scan Result (test code = 4568714) Protein Refer to individual electrophoresis, CSF Protein Electrophoresis, (test code = 0542259) CSF results. [facility] HospitalPOCT[facility]GLUCOSE [id number] 17:54:51 Test Item Value Reference Range Interpretation Comments POC-GLUCOSE METER 113 mg/dL 70-110 H : TESTED A T [facility] 6720 (BEAKER) (test code = [facility], 153) 78975: Slip Seat Coverer/Techni ilir ID = [id number] for AZIZA US Angiotensin Converting Enzyme (CARROL)2022-07-04 13:59:36 Test Item Value Reference Range Interpretation Comments CARROL, Serum (test code = 6 U/L L ) JUANA (test code = JUANA) Performing Lab EZ [facility] [address] [place] [address] Mitchell Zhong MD, PhD, YOLY Lab Interpretation (test Abnormal code = 73878-1) [facility] HospitalIgG Index (CSF + Blood)2022-07-04 13:46:59 Test Item Value Reference Range Interpretation Comments Synthesis Rate IgG, 0.5 See_Comment [Automa chely CSF (test code = message] e ) system which generated this result transmit chely reference range : -9.9 TO +3.3 mg /24 h. The referenc e range was not u sed to interpret th is result as normal/abnormal . Igg Index,Csf (test 0.6 <0.66 code = 8625476) Albumin, CSF (test 19.1 mg/dL 8.0-42.0 code = 7517506) IgG, CSF (test code 2.1 mg/dL 0.8-7.7 = 7466785) IMMUNOGLOBULIN G, 585 mg/dL 600-1540 L SERUM (test code = 9085165) Albumin, Serum (test 3.2 g/dL 3.2-4.6 The Ig G Synthesis code = 1993380) rate, CSF an d IgG index, CSF are two formulae forestimating t he amount of IgG produced in the central nervous system. Evidenc eof increased synthesis of Ig G provides suppor t for the diagnos is of multiplescleros is. JUANA (test code = Performing Lab EZ JUANA) [facility] [address] [place] [address] Mitchell Zhong MD, PhD, YOLY Lab Interpretation Abnormal (test code = 43218-2) [facility] HospitalAlbumin, [id number] 12:33:51 Test Item Value Reference Range Interpretation Comments Albumin, CSF (test 19.2 mg/dL 8.0-42.0 code = 0495215) JUANA (test code = Performing Lab EZ [facility] JUANA[facility] [address] [place] [address] Mitchell Zhong MD, PhD, YOLY [facility] HospitalPOCT-GLUCOSE [id number] 12:06:57 Test Item Value Reference Range Interpretation Comments POC-GLUCOSE METER 110 mg/dL 70-110 : TESTED A T [facility] 6720 ([employer]) (test code = [facility], 1538) 67724: Slip Seat Coverer/Techni ilir ID = [id number] for AZIZA US POCT-GLUCOSE [id number] 08:50:56 Test Item Value Reference Range Interpretation Comments POC-GLUCOSE METER 90 mg/dL 70-110 : TESTED A T [facility] 6720 ([employer]) (test code = [facility], 1538) 71661: Slip Seat Coverer/Techni ilir ID = [id number] for AZIZA LAZO BASIC METABOLIC [id number] 05:06:42 Test Item Value Reference Range Interpretation [...] not appl icable for dialysis patien ts Slip Seat Coverer ID - PIAYA LPOCT-GLUCOSE [id number] 20:41:02 Test Item Value Reference Range Interpretation Comments POC-GLUCOSE METER 122 mg/dL 70-110 H : TESTED A T [facility] 6720 (BEAKER) (test code [facility], = 1538) 48596: Slip Seat Coverer/Techni ilir ID = [id number] for Kike Ramos POCT-GLUCOSE [id number] 18:02:41 Test Item Value Reference Range Interpretation Comments POC-GLUCOSE METER 121 mg/dL 70-110 H : TESTED A T [facility] 6720 (BEAKER) (test code = [facility], 1538) 75439: Slip Seat Coverer/Techni ilir ID = [id number] for AZIZA US HTLV 1/2 [id number] 14:14:06 Test Item Value Reference Range Interpretation Comments Htlv1/2 Antibody Nonreactive Nonreactive (test code = 9932496) JUANA (test code = JUANA) Performing Lab 15 [facility] [address] [place] [address] Dr Ruano, [place] Nathaniel Ceja MD, PhD [facility] HospitalAquaporin-4 (AQP4)(NMO-IgG) Antibody with Reflex to Titer, [id number] 12:47:40 Test Item Value Reference Range Interpretation Comments AQUAPORIN 4 AB, NEGATIVE NEGATIVE This test w as CBA, CSF (test developed and its code = 3762641) analytical p erformance characteristics havebeen determ ined by [facility] .It has not been cleare d or approved by FDA . This assay has been validatedpursua nt to the CLIA regula tions and is used for clinical purpos es. AQUAPORIN 4 AB, TNP See_Comment Test not per formed. TITER, CSF Reflex testing not (test code = required since 8063460) established cri teriawas not met. This t est was developed and i ts analytical perf ormance characteristics havebeen determ ined by [facility] .It has not been cleare d [...] (test code Performing Lab EZ = JUANA) [facility] [address] [place] [address] Mitchell Zhong MD, PhD, YOLY [facility] HospitalPOCT-GLUCOSE [id number] 12:31:33 Test Item Value Reference Range Interpretation Comments POC-GLUCOSE METER 103 mg/dL 70-110 : TESTED A T [facility] 6720 (BEAKER) (test code = [facility] [place], 1538) 47382: Slip Seat Coverer/Techni ilir ID = [id number] for AZIZA US POCT-GLUCOSE [id number] 08:32:03 Test Item Value Reference Range Interpretation Comments POC-GLUCOSE METER 97 mg/dL 70-110 : TESTED A T [facility] 6720 (BEAKER) (test code = [facility], 1538) 09976: Slip Seat Coverer/Techni ilir ID = [id number] for AZIZA LAZO BASIC METABOLIC [id number] 06:39:57 Test Item Value Reference Range Interpretation [...] not appl icable for dialysis patien ts Slip Seat Coverer ID - PIAYA LPOCT-GLUCOSE [id number] 20:58:25 Test Item Value Reference Range Interpretation Comments POC-GLUCOSE METER 122 mg/dL 70-110 H : TESTED A T [facility] 6720 (BEAKER) (test code [facility], = 1538) 65188: Slip Seat Coverer/Techni ilir ID = [id number] for Kike Ramos POCT-GLUCOSE [id number] 17:53:38 Test Item Value Reference Range Interpretation Comments POC-GLUCOSE METER 85 mg/dL 70-110 : TESTED A T [facility] 6720 (BEAKER) (test code = [facility], 1538) 70955: Slip Seat Coverer/Techni ilir ID = [id number] for WILL IAMS, TYNEKA CSF culture + gram [id number] 13:31:36 Test Item Value Reference Range Interpretation Comments Result (test code = 6463-4) No growth Gram Stain Result (test No organisms seen code = 1123) [facility] HospitalCSF CULTURE + GRAM [id number] 13:31:36 Test Item Value Reference Range Interpretation Comments CULTURE (BEAKER) (test code No growth = 1095) GRAM STAIN RESULT (BEAKER) <1+ WBCs (test code = 1123) GRAM STAIN RESULT (BEAKER) No organisms seen (test code = 56655) POCT-GLUCOSE [id number] 11:52:03 Test Item Value Reference Range Interpretation Comments POC-GLUCOSE METER 114 mg/dL 70-110 H : TESTED A T [facility] 6720 (BEAKER) (test code = [facility], 1538) 88591: Slip Seat Coverer/Techni ilir ID = [id number] for [place] LLIAMS, TYNEKA POCT-GLUCOSE [id number] 08:01:37 Test Item Value Reference Range Interpretation Comments POC-GLUCOSE METER 115 mg/dL 70-110 H : TESTED A T [facility] 6720 (BEAKER) (test code = [facility], 1538) 03990: Slip Seat Coverer/Techni ilir ID = [id number] for [place] LLIAMS, TYNEKA POCT-GLUCOSE [id number] 21:43:01 Test Item Value Reference Range Interpretation Comments POC-GLUCOSE METER 105 mg/dL 70-110 : TESTED A T [facility] 6720 (BEAKER) (test code = [facility], 1538) 04451: Slip Seat Coverer/Techni ilir ID = [id number] for Giovanni brianPoonam POCT-GLUCOSE [id number] 17:40:43 Test Item Value Reference Range Interpretation Comments POC-GLUCOSE METER 113 mg/dL 70-110 H : TESTED A T [facility] 6720 (BEAKER) (test code = [facility], 153) 43003: Slip Seat Coverer/Techni ilir ID = [id number] for Tami Negrete POCT-GLUCOSE [id number] 13:10:45 Test Item Value Reference Range Interpretation Comments POC-GLUCOSE METER 80 mg/dL 70-110 : TESTED A T [facility] 6720 (BEAKER) (test code = [facility], 153) 54421: Slip Seat Coverer/Techni ilir ID = [id number] for MART ALFONZO, ANGELO POCT-GLUCOSE [id number] 08:22:15 Test Item Value Reference Range Interpretation Comments POC-GLUCOSE METER 98 mg/dL 70-110 : TESTED A T [facility] 6720 (BEAKER) (test code = [facility], [facility]) 18791: Slip Seat Coverer/Techni ilir ID = [id number] for MART ALFONZO, ANGELO POCT-GLUCOSE [id number] 08:21:39 Test Item Value Reference Range Interpretation Comments POC-GLUCOSE METER 116 mg/dL 70-110 H : TESTED A T [facility] 6720 (BEAKER) (test code = [facility], 153) 55058: Slip Seat Coverer/Techni ilir ID = [id number] for YASMEEN RODRIGUEZINEZ, ANGELO POCT-GLUCOSE [id number] 22:14:07 Test Item Value Reference Range Interpretation Comments POC-GLUCOSE METER 125 mg/dL 70-110 H : TESTED A T [facility] 6720 (BEAKER) (test code = [facility], 153) 43324: Slip Seat Coverer/Techni ilir ID = [id number] for TAYA CAGE Paraneoplastic Panel, [id number] 18:00:30 Test Item Value Reference Range Interpretation Comments PARANEOPLASTIC AB CSF Refer to Individual AUTOVERIFICATION (test Test Results code = [id number]) [facility] HospitalPOCT[facility]GLUCOSE [id number] 12:31:21 Test Item Value Reference Range Interpretation Comments POC-GLUCOSE METER 104 mg/dL 70-110 : TESTED A T [facility] 6720 (BEAKER) (test code = [facility], 1538) 16676: Slip Seat Coverer/Techni ilir ID = [id number] for MADISON CARREROILIA POCT-GLUCOSE [id number] 12:31:20 Test Item Value Reference Range Interpretation Comments POC-GLUCOSE METER 89 mg/dL 70-110 : TESTED A T [facility] 6720 (BEAKER) (test code = [facility], 1538) 27192: Slip Seat Coverer/Techni ilir ID = [id number] for RONIT MEJÍA ANGELO POCT-GLUCOSE [id number] 08:48:55 Test Item Value Reference Range Interpretation Comments POC-GLUCOSE METER 149 mg/dL 70-110 H : TESTED A T [facility] 6720 (BEAKER) (test code = [facility], 1538) 57153: Slip Seat Coverer/Techni ilir ID = [id number] for CHERYL THOMPSON BASIC METABOLIC [id number] 05:43:18 Test Item Value Reference Range Interpretation [...] not appl icable for dialysis patien ts Slip Seat Coverer ID - ADMINPOCT-GLUCOSE [id number] 22:14:54 Test Item Value Reference Range Interpretation Comments POC-GLUCOSE METER 105 mg/dL 70-110 : TESTED A T [facility] 6720 (BEAKER) (test code = [facility] [place], 1538) 80153: Slip Seat Coverer/Techni ilir ID = [id number] for TAYA CAGE CSF cell count with [id number] 19:27:29 Test Item Value Reference Range Interpretation Comments Appearance (test code Clear Clear = 21395-5) Color (test code = Colorless Colorless 13562-1) RBCs (test code = 0 See_Comment [Automate [...] RBCs Fresh? (test Not Applicable code = 56495-4) # of Cells Diff'd 1 (test code = 78132-5) % Neutros (test code 0 % 0-5 = 45718-6) % Lymphs (test code = 100 % 40-80 H 30095-4) % Monos (test code = 0 % [...] 2677) Lab Interpretation Abnormal (test code = 59500-3) [facility] CELL COUNT [id number]/[id number] 19:27:29 Test Item Value Reference Range Interpretation [...] 1 (BEAKER) (test code = 2678) POCT-GLUCOSE [id number] 19:00:46 Test Item Value Reference Range Interpretation Comments POC-GLUCOSE METER 133 mg/dL 70-110 H : TESTED A T [facility] 6720 (BEAKER) (test code = [employer] [facility] [facility], 1538) 66489: Slip Seat Coverer/Techni ilir ID = [id number] for MA RTINEZ, ANGELO POCT-GLUCOSE [id number] 19:00:39 Test Item Value Reference Range Interpretation Comments POC-GLUCOSE METER 97 mg/dL 70-110 : TESTED A T [facility] 6720 (BEAKER) (test code = [facility], 1538) [address]: Slip Seat Coverer/Techni ilir ID = [id number] for MART ALFONZO, ANGELO Glucose, [id number] 18:01:05 Test Item Value Reference Range Interpretation Comments Glucose, CSF (test code = 49 mg/dL 40-70 2342-4) JUANA (test code = JUANA) Slip Seat Coverer ID - ADMIN Lab Interpretation (test Normal code = 59862-9) [facility] [id number] 18:01:05 Test Item Value Reference Range Interpretation Comments Protein, CSF (test code = 33 mg/dL 15-45 2880-3) JUANA (test code = JUANA) Slip Seat Coverer ID - ADMIN Lab Interpretation (test Normal code = 14330-4) [facility], [id number] 18:01:05 Test Item Value Reference Range Interpretation Comments GLUCOSE CSF (BEAKER) (test code = 49 mg/dL 40-70 406) Slip Seat Coverer ID - ADMINPROTEIN, [id number] 18:01:05 Test Item Value Reference Range Interpretation Comments PROTEIN CSF (BEAKER) (test code = 33 mg/dL 15-45 378) Slip Seat Coverer ID - ADMINSARS-COV2/RT-PCR ([facility])2022-06-29 18:00:56 Test Item Value Reference Range Interpretation Comments SARS-COV2/RT-PCR Negative Negative The SARS-Co V-2 target (test code = nucleic acids a re not 9370158) detected in thi s specimen. Negative result [...] revoked sooner. Fact Sheet for Healthcare Providers: https://www.PreApps m/Documents/Xpert%20Xpress%20SARS%20CoV-2/Fact%20Sheets/302-3802%92EPCB-ICD-9%20 HEALTHCARE%20PROVIDERS%20FACT%20SHEET.pdf Fact Sheet for Healthcare Patients: https://www.CoolSystems/Documents/Xpert%20Xp ress%20SARS%20CoV-2/Fact%20Sheets/302-3801%32DQPU-BRP-3%20PATIENT%20FACT%20SHEET .pdfBABAPTIST HEALTH [facility] METABOLIC [id number] 03:47:07 Test Item Value Reference Range Interpretation [...] not appl icable for dialysis patien ts Slip Seat Coverer ID - PIAYA LCBC W/PLT COUNT & AUTO [id number] 03:27:59 Test Item Value Reference Range Interpretation [...] (test code = 416) BASOPHILS ABSOLUTE COUNT (AKER) 0.04 K/ L 0.01-0.08 (test code = 417) IMMATURE GRANULOCYTES-RELATIVE 0.90 % 0.00-1.00 PERCENT (AKER) (test code = 2801) POCT-GLUCOSE [id number] 22:06:55 Test Item Value Reference Range Interpretation Comments POC-GLUCOSE METER 118 mg/dL 70-110 H : TESTED A T [facility] 6720 ([facility]) (test code = [facility], [facility]8) 48135: Slip Seat Coverer/Techni ilir ID = [id number] for Poonam Alfred POCT-GLUCOSE [id number] 12:59:43 Test Item Value Reference Range Interpretation Comments POC-GLUCOSE METER 113 mg/dL 70-110 H : TESTED A T [facility] 6720 ([facility]) (test code = [facility], [facility]8) 58877: Slip Seat Coverer/Techni ilir ID = [id number] for RO DGERS, JAMECA POCT-GLUCOSE [id number] 08:25:18 Test Item Value Reference Range Interpretation Comments POC-GLUCOSE METER 91 mg/dL 70-110 : TESTED A T [facility] 6720 ([facility]) (test code = [facility], [facility]8) 00333: Slip Seat Coverer/Techni ilir ID = [id number] for RODG ERS, JAMECA POCT-GLUCOSE [id number] 01:54:22 Test Item Value Reference Range Interpretation Comments POC-GLUCOSE METER 114 mg/dL 70-110 H : TESTED A T [facility] 6720 ([facility]) (test code = [facility], [facility]8) 74038: Slip Seat Coverer/Techni ilir ID = [id number] for DIANA JEZONJOSE CTTA POCT-GLUCOSE [id number] 16:59:04 Test Item Value Reference Range Interpretation Comments POC-GLUCOSE METER 122 mg/dL 70-110 H : TESTED A T [facility] 6720 ([facility]) (test code = [facility], [facility]8) 33695: Slip Seat Coverer/Techni ilir ID = [id number] for RO DGERS, JAMECA POCT-GLUCOSE [id number] 12:45:25 Test Item Value Reference Range Interpretation Comments POC-GLUCOSE METER 145 mg/dL 70-110 H : TESTED A T [facility] 6720 (BEAKER) (test code = [facility] [place], 1538) 764[address]: Slip Seat Coverer/Techni ilir ID = [id number] for CHERYL THOMPSON POCT-GLUCOSE [id number] 00:05:46 Test Item Value Reference Range Interpretation Comments POC-GLUCOSE METER 171 mg/dL 70-110 H : TESTED A T [facility] 6720 (BEAKER) (test code = [facility], 1538) 02487: Slip Seat Coverer/Techni ilir ID = [id number] for KRISTINE WALTER BASIC METABOLIC [id number] 06:59:12 Test Item Value Reference Range Interpretation [...] not appl icable for dialysis patien ts Slip Seat Coverer ID - PIAYA [id number] 06:59:12 Test Item Value Reference Range Interpretation Comments MAGNESIUM (BEAKER) (test code = 1.7 mg/dL 1.6-2.6 627) Slip Seat Coverer ID - PIAYA LCBC W/PLT COUNT & AUTO [id number] 06:42:11 Test Item Value Reference Range Interpretation [...] 0.00-1.00 PERCENT (BEAKER) (test code = 2801) 2D Echo W/Doppler(CW/PW/Color)2022-06-25 15:54:03Ejection FractionSLEH ECHO HEARTLAB MKCKESSON CPACSCHI [facility] HospitalMR, SPINE, LUMBAR, WITH 2022-06-24 14:06:00Unlisted Reason for Exam - Click Yes and Enter Reason Below->NoFLOR [facility] : 1960 Sex: MFINAL [...] posterior cervical spinal cord on the large yjcbc-dv-wnbk images There is no significant foraminal or [...] Verified Date/Time: 06/24/2022 14:06:49 MR, SPINE, THORACIC, [id number] 14:06:00Unlisted Reason for Exam - Click Yes and Enter Reason Below->No [facility] : 1960 Sex: MFINAL [...] posterior cervical spinal cord on the large xgivu-tu-wdva images There is no significant foraminal or [...] superior L1-L3 vertebral bodies. Signed: Maddie Mcfarland [facility] Verified Date/Time: 06/24/2022 14:06:49 CT, HENRIKNGPATI [id number] 14:36:00MRB with subacute infarctsUnlisted Reason for Exam - Click Yes and Enter Reason Below->No [facility] : 1960 [...] MDReport Verified Date/Time: 06/23/2022 14:36:05 CT, CAROTID, [id number] 14:36:00MRB with subacute infarctsUnlisted Reason for Exam - Click Yes and Enter Reason Below->No [facility] : 1960 Sex: MFINAL [...] the head and neck. Signed: Maddie Mcfarland Verified Date/Time: 06/23/2022 14:36:05 MR, SPINE, CERVICAL, [id number] 13:12:00Unlisted Reason for Exam - Click Yes and Enter Reason Below->No [facility] : 1960 Sex: MFINAL [...] sclerosis. No associated enhancement. Signed: Maddie Mcfarland [facility] Verified Date/Time: 06/23/2022 13:12:55 [id number] 12:52:03 Test Item Value Reference Range Interpretation Comments RPR SCREEN ([facility]) (test code = Nonreactive Nonreactive 420) HEMOGLOBIN [id number] 12:40:19 Test Item Value Reference Range Interpretation Comments HEMOGLOBIN A1C 5.5 % See_Comment [Automated m essage] ELECTROPHORESIS ([facility]) The system which (test code = 3811) generated this result transmitted ref erence range: <=5.6%. The reference range was not used to int erpret this result as normal/abnormal . "The A1c is measured using a NGSP-certified method. HbA1c value equal to or greater than 6.5% as thediagnosis cutoff for diabetes. An HbA1c value of 5.7- 6.4% indicates increased risk for diabetes (prediabetes)."Slip Seat Coverer ID - ADM TSH/FREE T4 IF [id number] 12:29:54 Test Item Value Reference Range Interpretation Comments THYROID STIMULATING HORMONE 1.690 uIU/mL 0.350-4.940 ([facility]) (test code = 772) Slip Seat Coverer ID - MARCOLIPID [id number] 12:03:12 Test Item Value Reference Range Interpretation Comments TRIGLYCERIDES ([facility]) (test code = 37 mg/dL 540) CHOLESTEROL ([facility]) (test code = 102 mg/dL 631) HDL CHOLESTEROL ([facility]) (test code 43 mg/dL = 976) LDL CHOLESTEROL CALCULATED ([employer]) 52 mg/dL (test code = 633) Triglyceride Reference Range: Low Risk <150 Borderline 150-199 High Risk 200- 499 Very High Risk >=500Cholesterol Reference Range: Low Risk <200 Borderline 200-239 High Risk >240HDL Cholesterol Reference Range: Low Risk >=60 High Risk <40LDL Cholesterol Reference Range: Optimal <100 Near Optimal 100-129 Borderline 130-159 High 160-189 Very High >=190 Slip Seat Coverer ID - WILLIAM, BRAIN, [id number] 09:35:00Reason for exam:->Biletral LE weakness What is the patient's sedation requirement?->No Sedation [facility] : 1960 Sex: MFINAL REPORT MR, BRAIN, WITH \\T\\ WITHOUT CONTRAST INDICATION: Neuro deficit, acute, stroke suspectedBiletral LE weakness Technique: Multiplanar, multisequence MRI images of the brain were obtained before and after demonstration of intravenous contrast. COMPARISON: None FINDINGS:Brain paren chyma is normal in morphology. 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 No hydrocephalus. Orbits are within normal limits. No obstructive paranasal sinus disease. Additional findings: None. IMPRESSION:1.No acute infarct or acute intracranial hemorrhage.2.Numerous (greater than 50) FLAIR hyperintensities in the supratentorial white matter,representing demyelinating disease and/or chronic small vessel ischemic changes. No enhancing lesions to suggest active demyelination.3.Focal subacute infarct in the right frontal lobe. No hemorrhagic conversion.4.Scattered chronic microhemorrhages, which may represent sequela of hypertension. Signed:Maddie Mcfarland [facility] Verified Date/Time: 06/23/2022 09:35:32 BASIC METABOLIC [id number] 04:52:25 Test Item Value Reference Range Interpretation Comments SODIUM (BEAKER) 130 meq/L 136-145 L (test code = 381) POTASSIUM 4.9 meq/L 3.5-5.1 (BEAKER) (test code = 379) CHLORIDE (BEAKER) 101 meq/L 98-107 (test code = 382) CO2 (BEAKER) 22 meq/L 22-29 (test code = 355) BLOOD UREA 18 mg/dL 7-21 NITROGEN (CARAKER) (test code = 354) CREATININE 0.75 mg/dL 0.57-1.25 (BEAKER) (test code = 358) GLUCOSE RANDOM 132 mg/dL 70-105 H (CARAKER) (test code = 652) CALCIUM (CARAKER) 9.6 mg/dL 8.4-10.2 (test code = 697) EGFR (CARAKER) 102 Interpretatio n of eGFR (test code [...] not appl icable for dialysis patien ts Slip Seat Coverer ID - DORIRS-COV2/RT-PCR ([facility])2022-06-22 10:57:50 Test Item Value Reference Range Interpretation Comments SARS-COV2/RT-PCR Negative Negative The SARS-Co V-2 target (test code = nucleic acids a re not 8622128) detected in thi s specimen. Negative result [...] revoked sooner. Fact Sheet for Healthcare Providers: https://www.PreApps m/Documents/Xpert%20Xpress%20SARS%20CoV-2/Fact%20Sheets/302-3802%48NGEQ-OVN-0%20 HEALTHCARE%20PROVIDERS%20FACT%20SHEET.pdf Fact Sheet for Healthcare Patients: https://www.CoolSystems/Documents/Xpert%20Xp ress%20SARS%20CoV-2/Fact%20Sheets/302-3801%07PIYJ-OCH-3%20PATIENT%20FACT%20SHEET .pdfBABAPTIST [facility]ALTH [facility] METABOLIC [id number] 06:52:29 Test Item Value Reference Range Interpretation [...] not appl icable for dialysis patien ts Slip Seat Coverer ID - EVELIA PAINTINGASIC METABOLIC [id number] 02:11:54 Test Item Value Reference Range Interpretation [...] not appl icable for dialysis patien ts Slip Seat Coverer ID - ALEKSEY MVITAMIN [id number] 17:51:59 Test Item Value Reference Range Interpretation Comments VITAMIN B12 (BEAKER) (test code = 480 pg/mL 213-244 154) Slip Seat Coverer ID - BSRAD, ANKLE, MIN 3 VIEWS, [id number] 15:52:00Reason for exam:->hx of falls and severe ankle painShould this be performed at the bedside?->Yes[facility] : 1960 Sex: MFINAL REPORT Clinical history: hx of falls and severe ankle pain TECHNIQUE: 3 views of the bilateral ankles COMPARISON: None IMPRESSION: Both ankles are intact without fracture or dislocation. Signed: Beth Stark Verified Date/Time: 06/19/2022 15:52:39 Reading Location: [address] Reading Room RAD, ANKLE, MIN 3 VIEWS, [id number] 15:52:00Reason for exam:->hx of falls and severe bilateral ankle painShould this be performed at the bedside?->Yes [facility] : 1960 Sex: MFINAL REPORT Clinical history: hx of falls and severe ankle pain TECHNIQUE: 3 views of the bilateral ankles COMPARISON: None IMPRESSION: Both ankles are intact without fracture or dislocation. Signed: Beth Stark Verified Date/Time: 06/19/2022 15:52:39 Reading Location: [address] Reading Room URIC [id number] 12:29:59 Test Item Value Reference Range Interpretation Comments URIC ACID (BEAKER) (test code = 6.1 mg/dL 2.6-7.2 773) Slip Seat Coverer ID - MARCOPROTHROMBIN TIME/[id number] 06:12:42 Test Item Value Reference Range Interpretation Comments PROTIME (BEAKER) 13.1 seconds 11.9-14.2 (test code = 759) INR (BEAKER) (test 1.06 See_Comment [Automat ed message] code = 370) The system GeeYee generated this result transmitted ref erence range: <=5.90. The reference range was not used to int erpret this result as normal/abnormal . RECOMMENDED COUMADIN/WARFARIN INR THERAPY RANGESSTANDARD DOSE: 2.0 - 3.0 Includes: PROPHYLAXIS for venous thrombosis, systemic embolization; TREATMENT for venous thrombosis and/or pulmonary embolus.HIGH RISK: Target INR is 2.5-3.5 for patients with mechanical heart valves.[id number] 05:42:51 Test Item Value Reference Range Interpretation Comments MAGNESIUM (BEAKER) (test code = 1.7 mg/dL 1.6-2.6 627) Slip Seat Coverer ID - MARCOBASIC METABOLIC [id number] 05:42:50 Test Item Value Reference Range Interpretation [...] not appl icable for dialysis patien ts Slip Seat Coverer ID - MARCOCBC W/PLT COUNT & AUTO [id number] 05:28:00 Test Item Value Reference Range Interpretation [...] PERCENT (BEAKER) (test code = 2801) POC-Glucose [id number] 11:50:45 Test Item Value Reference Range Interpretation Comments POC-Glucose Meter (test 116 mg/dL 70-110 H : TE STED AT [facility] code = 1538) 6720 [facility], 770 30: Slip Seat Coverer/Techni ilir ID = [id number] for MATIAS ROB Lab Interpretation (test Abnormal code = 29380-9) [facility] [id number] 11:50:45 Test Item Value Reference Range Interpretation Comments POC-GLUCOSE METER 116 mg/dL 70-110 H : [facility] (test code = [facility], 1538) 87608: Slip Seat Coverer/Techni ilir ID = [id number] for HU NTER, HIWITHA POCT-GLUCOSE [id number] 07:12:04 Test Item Value Reference Range Interpretation Comments POC-GLUCOSE METER 100 mg/dL 70-110 : TESTED A T [facility] 6720 (BEAKER) (test code = [facility], 1538) 34042: Slip Seat Coverer/Techni ilir ID = [id number] for HU NTER, HIWITHA BASIC METABOLIC [id number] 05:05:52 Test Item Value Reference Range Interpretation [...] not appl icable for dialysis patien ts Slip Seat Coverer ID - HENRY WCBC W/PLT COUNT & AUTO [id number] 04:17:24 Test Item Value Reference Range Interpretation [...] PERCENT (BEAKER) (test code = 2801) POCT-GLUCOSE [id number] 21:09:21 Test Item Value Reference Range Interpretation Comments POC-GLUCOSE METER 119 mg/dL 70-110 H : TESTED A T [facility] 6720 (BEAKER) (test code = [facility], 153) 64238: Slip Seat Coverer/Techni ilir ID = [id number] for ISAIAS ASHRAF SE POCT-GLUCOSE [id number] 16:49:45 Test Item Value Reference Range Interpretation Comments POC-GLUCOSE METER 87 mg/dL 70-110 : TESTED A T [facility] 6720 (BEAKER) (test code = [facility], 153) 42810: Slip Seat Coverer/Techni ilir ID = [id number] for BRIANVELIA MARIE POCT-GLUCOSE [id number] 12:12:01 Test Item Value Reference Range Interpretation Comments POC-GLUCOSE METER 97 mg/dL 70-110 : TESTED A T [facility] 6720 (BEAKER) (test code = [facility] [place], 1538) 92498: Slip Seat Coverer/Techni ilir ID = [id number] for MARIE TALAVERA POCT-GLUCOSE [id number] 08:24:18 Test Item Value Reference Range Interpretation Comments POC-GLUCOSE METER 95 mg/dL 70-110 : TESTED A T [facility] 6720 (BEAKER) (test code = [facility], 1538) 37419: Slip Seat Coverer/Techni ilir ID = [id number] for MARIE TALAVERA BASIC METABOLIC [id number] 06:41:00 Test Item Value Reference Range Interpretation [...] not appl icable for dialysis patien ts Slip Seat Coverer ID - ALEKSEY MCBC W/PLT COUNT & AUTO [id number] 05:06:23 Test Item Value Reference Range Interpretation [...] PERCENT (BEAKER) (test code = 2801) POCT-GLUCOSE [id number] 21:14:48 Test Item Value Reference Range Interpretation Comments POC-GLUCOSE METER 123 mg/dL 70-110 H : TESTED A T [facility] 6720 (BEAKER) (test code = [facility], 1538) 20573: Slip Seat Coverer/Techni ilir ID = [id number] for PE RALISAURO, SUDHA POCT-GLUCOSE [id number] 17:25:39 Test Item Value Reference Range Interpretation Comments POC-GLUCOSE METER 108 mg/dL 70-110 : TESTED A T [facility] 6720 (BEAKER) (test code = [facility], 1538) 20723: Slip Seat Coverer/Techni ilir ID = [id number] for CO RTEZ, JILLIAN POCT-GLUCOSE [id number] 11:16:40 Test Item Value Reference Range Interpretation Comments POC-GLUCOSE METER 151 mg/dL 70-110 H : TESTED A T [facility] 6720 (BEAKER) (test code = [facility], 1538) 95255: Slip Seat Coverer/Techni ilir ID = [id number] for CO RTEZ, JILLIAN POCT-GLUCOSE [id number] 07:40:07 Test Item Value Reference Range Interpretation Comments POC-GLUCOSE METER 91 mg/dL 70-110 : TESTED A T [facility] 6720 (BEAKER) (test code = [facility], 1538) 29574: Slip Seat Coverer/Techni ilir ID = [id number] for BHAVANI EZ, JILLIAN BASIC METABOLIC [id number] 05:19:53 Test Item Value Reference Range Interpretation [...] not appl icable for dialysis patien ts Slip Seat Coverer ID - PIAYA LCBC W/PLT COUNT & AUTO [id number] 04:32:38 Test Item Value Reference Range Interpretation [...] PERCENT (BEAKER) (test code = 2801) POCT-GLUCOSE [id number] 20:55:14 Test Item Value Reference Range Interpretation Comments POC-GLUCOSE METER 103 mg/dL 70-110 : TESTED A T [facility] 6720 (BEAKER) (test code = [facility], 153) 31444: Slip Seat Coverer/Techni ilir ID = [id number] for SUDHA NEWMAN POCT-GLUCOSE [id number] 17:10:50 Test Item Value Reference Range Interpretation Comments POC-GLUCOSE METER 102 mg/dL 70-110 : TESTED A T [facility] 6720 (BEAKER) (test code = [facility], 1538) 48423: Slip Seat Coverer/Techni ilir ID = [id number] for WI LLIAMS, TYNEKA POCT-GLUCOSE [id number] 11:36:44 Test Item Value Reference Range Interpretation Comments POC-GLUCOSE METER 81 mg/dL 70-110 : TESTED A T [facility] 6720 (BEAKER) (test code = [facility], 1538) 71929: Slip Seat Coverer/Techni ilir ID = [id number] for WILL IAMS, TYNEKA SARS-CoV2/RT-PCR (Asymptomatic ONLY)2022-06-06 09:22:33 Test Item Value Reference Interpretation Comments Range SARS-COV2/RT-PCR Negative Negative The SARS-Co V-2 (test code = target nucleic 34807-2) acids are not detected in thi s [...] revoked sooner. Fact Sheet for Healthcare Providers: https://www.Mainstream Data/Documents/Xp ert%20Xpress%20SAR S%20CoV-2/Fact%20S heets/302-3802%20S ARS-COV-2%20HEALTH CARE%20PROVIDERS%2 0FACT%20SHEET.pdf Fact Sheet for Healthcare Patients: https://www.Mainstream Data/Documents/Xp ert%20Xpress%20SAR S%20CoV-2/Fact%20S heets/302-3801%20S ARS-COV-2%20PATIEN T%20FACT%20SHEET.p df Lab Interpretation Normal (test code = 60146-7) [facility])2022-06-06 09:22:33 Test Item Value Reference Range Interpretation Comments SARS-COV2/RT-PCR Negative Negative The SARS-Co V-2 target (test code = nucleic acids a re not 4057298) detected in thi s specimen. Negative result [...] revoked sooner. Fact Sheet for Healthcare Providers: https://www.PreApps m/Documents/Xpert%20Xpress%20SARS%20CoV-2/Fact%20Sheets/302-3802%91CDXK-OZR-0%20 HEALTHCARE%20PROVIDERS%20FACT%20SHEET.pdf Fact Sheet for Healthcare Patients: https://www.CoolSystems/Documents/Xpert%20Xp ress%20SARS%20CoV-2/Fact%20Sheets/302-3801%24ZRFJ-BQG-4%20PATIENT%20FACT%20SHEET .pdfPOCT-GLUCOSE [id number] 07:37:53 Test Item Value Reference Range Interpretation Comments POC-GLUCOSE METER 96 mg/dL 70-110 : TESTED A T [facility] 6720 ([facility]) (test code = [place], 1538) 86792: Slip Seat Coverer/Techni ilir ID = [id number] for LATANYA KRISHNAMURTHY BASIC METABOLIC [id number] 06:34:19 Test Item Value Reference Range Interpretation [...] not appl icable for dialysis patien ts Slip Seat Coverer ID - PIAYA LCBC W/PLT COUNT & AUTO [id number] 05:38:02 Test Item Value Reference Range Interpretation [...] PERCENT (BEAKER) (test code = 2801) POCT-GLUCOSE [id number] 21:00:32 Test Item Value Reference Range Interpretation Comments POC-GLUCOSE METER 122 mg/dL 70-110 H : TESTED A T [facility] 6720 (BEAKER) (test code = [facility], 1538) 32621: Slip Seat Coverer/Techni ilir ID = [id number] for HENRIQUE HERNANDEZ POCT-GLUCOSE [id number] 12:05:11 Test Item Value Reference Range Interpretation Comments POC-GLUCOSE METER 101 mg/dL 70-110 : TESTED A T [facility] 6720 (BEAKER) (test code = [facility], 1538) 91395: Slip Seat Coverer/Techni ilir ID = [id number] for MATIAS OLMSTEAD POCT-GLUCOSE [id number] 06:58:14 Test Item Value Reference Range Interpretation Comments POC-GLUCOSE METER 99 mg/dL 70-110 : TESTED A T [facility] 6720 (BEAKER) (test code = [place], 1538) 00224: Slip Seat Coverer/Techni ilir ID = [id number] for KERMIT LOYD, PELONWITHA BASIC METABOLIC [id number] 05:22:21 Test Item Value Reference Range Interpretation [...] not appl icable for dialysis patien ts Slip Seat Coverer ID - PIAYA LCBC W/PLT COUNT & AUTO [id number] 04:36:55 Test Item Value Reference Range Interpretation [...] PERCENT (BEAKER) (test code = 2801) POCT-GLUCOSE [id number] 20:58:57 Test Item Value Reference Range Interpretation Comments POC-GLUCOSE METER 96 mg/dL 70-110 : TESTED A T [facility] 6720 (BEAKER) (test code = [facility], 1538) 19804: Slip Seat Coverer/Techni ilir ID = [id number] for HENRIQUE PLASCENCIA POCT-GLUCOSE [id number] 16:29:29 Test Item Value Reference Range Interpretation Comments POC-GLUCOSE METER 137 mg/dL 70-110 H : TESTED A T [facility] 6720 (BEAKER) (test code = [facility], 1538) 16559: Slip Seat Coverer/Techni ilir ID = [id number] for HU NTER, HIWITHA POCT-GLUCOSE [id number] 11:41:40 Test Item Value Reference Range Interpretation Comments POC-GLUCOSE METER 115 mg/dL 70-110 H : TESTED A T [facility] 6720 (BEAKER) (test code = [facility], 1538) 85335: Slip Seat Coverer/Techni ilir ID = [id number] for HU NTER, HIWITHA CT, CHEST, WITH [id number] 07:53:00Reason for exam:->concern for metastatic diseaseWhat is the patient's sedation requirement?->No Sedation [facility] : 1960 Sex: MFINAL REPORT [...] right common iliac artery. Signed: Jeramy Sarabia [facility] Verified Date/Time: 06/04/2022 07:53:54 CT, [id number] 07:53:00Unlisted Reason for Exam - Click Yes and Enter Reason Below- >YesUnlisted Reason for Exam->ischemic bowel and hx of colon cancerIs this for enterography?->NoWill this procedure require oral contrast?->Yes [facility] : 1960 Sex: MFINAL [...] the right common iliac artery. Signed: Jeramy Sarabiaepinessa Verified Date/Time: 06/04/2022 07:53:54 POCT-GLUCOSE [id number] 06:55:58 Test Item Value Reference Range Interpretation Comments POC-GLUCOSE METER 95 mg/dL 70-110 : TESTED A T [facility] 6720 (BEAKER) (test code = [facility] [place], 1538) 90794: Slip Seat Coverer/Techni ilir ID = [id number] for MATIAS WOODRUFF BASIC METABOLIC [id number] 06:20:56 Test Item Value Reference Range Interpretation [...] not appl icable for dialysis patien ts Slip Seat Coverer ID - BSCBC W/PLT COUNT & AUTO [id number] 05:27:59 Test Item Value Reference Range Interpretation [...] PERCENT (BEAKER) (test code = 2801) POCT-GLUCOSE [id number] 21:20:45 Test Item Value Reference Range Interpretation Comments POC-GLUCOSE METER 115 mg/dL 70-110 H : TESTED A T [facility] 6720 (BEAKER) (test code = [facility], 1538) 80420: Slip Seat Coverer/Techni ilir ID = [id number] for Es tahminaoza, Ashley POCT-GLUCOSE [id number] 17:16:19 Test Item Value Reference Range Interpretation Comments POC-GLUCOSE METER 114 mg/dL 70-110 H : TESTED A T [facility] 6720 (BEAKER) (test code = [facility], 1538) 38956: Slip Seat Coverer/Techni ilir ID = [id number] for Am ador, Doe POCT-GLUCOSE [id number] 11:17:49 Test Item Value Reference Range Interpretation Comments POC-GLUCOSE METER 117 mg/dL 70-110 H : TESTED A T [facility] 6720 (BEAKER) (test code = [facility], 1538) 52140: Slip Seat Coverer/Techni ilir ID = [id number] for Am ador, Doe POCT-GLUCOSE [id number] 07:38:05 Test Item Value Reference Range Interpretation Comments POC-GLUCOSE METER 106 mg/dL 70-110 : TESTED A T [facility] 6720 (BEAKER) (test code = [facility], 1538) 88183: Slip Seat Coverer/Techni ilir ID = [id number] for Am ador, Doe BASIC METABOLIC [id number] 05:34:55 Test Item Value Reference Range Interpretation [...] (test code = 697) EGFR (BEAKER) 101 Interpretati on of eGFR (test code = [...] not appl icable for dialysis patien ts Slip Seat Coverer ID - ALEKSEY MCBC W/PLT COUNT & AUTO [id number] 05:08:48 Test Item Value Reference Range Interpretation [...] PERCENT (BEAKER) (test code = 2801) POCT-GLUCOSE [id number] 21:02:44 Test Item Value Reference Range Interpretation Comments POC-GLUCOSE METER 122 mg/dL 70-110 H : TESTED A [facility] 67 ([facility]) (test code = [facility], 1538) 94919: Slip Seat Coverer/Techni ilir ID = [id number] for Isauro hatch Ashley POCT-GLUCOSE [id number] 14:54:50 Test Item Value Reference Range Interpretation Comments POC-GLUCOSE METER 97 mg/dL 70-110 : TESTED A [facility] 6720 ([facility]) (test code = [facility], 1538) 44582: Slip Seat Coverer/Techni ilir ID = [id number] for DERRICK STOREY POC ACTIVATED CLOTTING [id number] 14:04:22 Test Item Value Reference Range Interpretation Comments Activated Clotting Time 260 sec : 74 -137 seconds, (test code = 3184-9) Baselin e: TESTED AT [facility] 6720 [facility], 770 30: Slip Seat Coverer/Techni ilir ID = [id number] for Ga rza (contract), Aar on [facility] ACTIVATED CLOTTING [id number] 14:04:22 Test Item Value Reference Range Interpretation Comments Activated Clotting Time 260 sec : 74 -137 seconds, (test code = 3184-9) Baselin e: TESTED AT [facility] [address] [place] [address], 770 30: Slip Seat Coverer/Techni ilir ID = [id number] for Ga rza (contract), [id number] 14:04:22 Test Item Value Reference Range Interpretation Comments ACTIVATED CLOTTING TIME 260 sec : 74 -137 seconds, (BEAKER) (test code = Baseli ne: TESTED AT 441) [facility] 6720 [facility], 770 30: Slip Seat Coverer/Techni ilir ID = [id number] for Ga rza (contract), Aar on POCT-GLUCOSE [id number] 11:19:31 Test Item Value Reference Range Interpretation Comments POC-GLUCOSE METER 96 mg/dL 70-110 : TESTED A T [facility] 6720 (BEAKER) (test code = [facility], 1538) 86691: Slip Seat Coverer/Techni ilir ID = [id number] for Amad or, Doe POCT-GLUCOSE [id number] 08:05:08 Test Item Value Reference Range Interpretation Comments POC-GLUCOSE METER 98 mg/dL 70-110 : TESTED A T [facility] 6720 (BEAKER) (test code = [facility], 1538) 41375: Slip Seat Coverer/Techni ilir ID = [id number] for Amad or, Doe CBC W/PLT COUNT & AUTO [id number] 06:08:47 Test Item Value Reference Range Interpretation [...] (BEAKER) (test code = 2801) BASIC METABOLIC [id number] 05:29:11 Test Item Value Reference Range Interpretation [...] = 358) GLUCOSE RANDOM 88 mg/dL 70-105 (Image Space MediaAKER) (test code = 652) CALCIUM (BEAKER) 9.4 mg/dL 8.4-10.2 (test code = 697) EGFR (Image Space MediaAKER) 102 Interpretatio n of eGFR (test code [...] not appl icable for dialysis patien ts Slip Seat Coverer ID - BALAAYA LPOCT-GLUCOSE [id number] 21:07:11 Test Item Value Reference Range Interpretation Comments POC-GLUCOSE METER 100 mg/dL 70-110 : TESTED A T [facility] 6720 ([employer]) (test code = [facility], 1538) 57282: Slip Seat Coverer/Techni ilir ID = [id number] for MATHEUS ROD POCT-GLUCOSE [id number] 16:42:15 Test Item Value Reference Range Interpretation Comments POC-GLUCOSE METER 99 mg/dL 70-110 : TESTED A T [facility] 6720 ([employer]) (test code = [facility], 1538) 98462: Slip Seat Coverer/Techni ilir ID = [id number] for LATANYA KRISHNAMURTHY POCT-GLUCOSE [id number] 12:34:23 Test Item Value Reference Range Interpretation Comments POC-GLUCOSE METER 115 mg/dL 70-110 H : TESTED A T [facility] 6720 ([employer]) (test code = [facility], 1538) 55640: Slip Seat Coverer/Techni ilir ID = [id number] for WI BROWN, JORDANANEJEROME 2D Echo W/Doppler(CW/PW/Color)2022-06-01 10:23:04Ejection FractionSLEH ECHO HEARTLAB MKCKESSON [facility] Echo W/Doppler(CW/PW/Color)2022-06-01 10:23:04Ejection FractionSLEH ECHO HEARTLAB [facility]2022-[facility]-21 07:44:37 Test Item Value Reference Range Interpretation Comments MAGNESIUM (BEAKER) (test code = 1.9 mg/dL 1.6-2.6 627) Slip Seat Coverer ID - MANPREET [id number] 07:44:37 Test Item Value Reference Range Interpretation Comments PHOSPHORUS (BEAKER) (test code = 3.5 mg/dL 2.3-4.7 604) Slip Seat Coverer ID - MANPREET GBASIC METABOLIC [id number] 07:44:36 Test Item Value Reference Range Interpretation [...] not appl icable for dialysis patien ts Slip Seat Coverer ID - MANPREET GPOCT-GLUCOSE [id number] 07:37:57 Test Item Value Reference Range Interpretation Comments POC-GLUCOSE METER 101 mg/dL 70-110 : TESTED A T [facility] 6720 (BEAKER) (test code = [facility] [place], 1538) 83360: Slip Seat Coverer/Techni ilir ID = [id number] for LATANYA WALTER CBC W/PLT COUNT & AUTO [id number] 05:49:58 Test Item Value Reference Range Interpretation [...] PERCENT (BEAKER) (test code = 2801) POCT-GLUCOSE [id number] 22:17:39 Test Item Value Reference Range Interpretation Comments POC-GLUCOSE METER 103 mg/dL 70-110 : TESTED A T [facility] 6720 (BEAKER) (test code = [facility], 153) 61903: Slip Seat Coverer/Techni ilir ID = [id number] for Misael ruiz (contract)Rishi POCT-GLUCOSE [id number] 17:17:44 Test Item Value Reference Range Interpretation Comments POC-GLUCOSE METER 109 mg/dL 70-110 : TESTED A T [facility] 6720 (BEAKER) (test code = [facility], 153) 56453: Slip Seat Coverer/Techni ilir ID = [id number] for lauraEric beach POCT-GLUCOSE [id number] 11:56:56 Test Item Value Reference Range Interpretation Comments POC-GLUCOSE METER 112 mg/dL 70-110 H : TESTED A T [facility] 6720 (BEAKER) (test code = [facility], 153) 05419: Slip Seat Coverer/Techni ilir ID = [id number] for HU NTER, HIWITHA CBC W/PLT COUNT & AUTO [id number] 08:34:37 Test Item Value Reference Range Interpretation [...] (test code = 2801) HIGH SENSITIVITY TROPONIN [id number] 07:20:15 Test Item Value Reference Range Interpretation Comments HIGH SENSITIVITY 10 pg/ml See_Comment [Automated message] TROPONIN I (test code = The system which [id number]) generated this result transmitted ref erence range: <=35. Th e reference range was not used to int erpret this result as normal/abnormal . Slip Seat Coverer ID - MANPREET GThe COCOA POWDER MIXER OPERATOR STAT High Sensitivity Troponin-I results should be used in conjunction with other diagnostic information such as ECG, clinical observations and information, and patient symptoms to aid in the diagnosis of SD.RAD, CHEST, 1 VIEW, NON [id number] 07:06:00Reason for exam:- >new chest painShould this be performed at the bedside?->Yes [facility] CENTERName: CULLEN MIRANDA : 1960 [...] distention of small bowel loops. Signed: Tatyana Bang MDReport Verified Date/Time: 05/31/2022 07:06:21 , ABDOMEN/KUB, 1 VIEW [id number] 07:06:00Reason for exam:->new severe RLQ painShould this be performed at the bedside?->Yes [facility] 1960 Sex: MFINAL REPORT [...] distention of small bowel loops. Signed: Tatyana Bang MDReport Verified Date/Time: 05/31/2022 07:06:21 -GLUCOSE [id number] 07:05:02 Test Item Value Reference Range Interpretation Comments POC-GLUCOSE METER 103 mg/dL 70-110 : TESTED A T [facility] 6720 (BEAKER) (test code = [facility] [place], 1538) 61545: Slip Seat Coverer/Techni ilir ID = [id number] for PELON OLMSTEADWITHA [id number] 06:21:54 Test Item Value Reference Range Interpretation Comments PHOSPHORUS (BEAKER) (test code = 3.4 mg/dL 2.3-4.7 604) Slip Seat Coverer ID - MANPREET GBASIC METABOLIC [id number] 06:21:53 Test Item Value Reference Range Interpretation [...] not appl icable for dialysis patien ts Slip Seat Coverer ID - MANPREET [id number] 06:21:53 Test Item Value Reference Range Interpretation Comments MAGNESIUM (BEAKER) (test code = 1.5 mg/dL 1.6-2.6 L 627) Slip Seat Coverer ID - MANPREET GCT, [id number] 23:26:00Unlisted Reason for Exam - Click Yes and Enter Reason Below->YesUnlisted Reason for Exam->epigastric and LUQ severe pain; history of prior colon cancer remotelyIs this for enterography?->NoPlease specify:->Pancreasspleen and GI tractWill this procedure require oral contrast?->Yes [facility] : 1960 Sex: MFINAL REPORT [...] on a nonemergent basis. Signed: Erika Echavarria [facility] Verified Date/Time: 05/30/2022 23:26:03 PET/CT, CARDIAC PERF REST AND STRESS 2022-05-30 23:00:00Reason for exam:->cardiac screening, high CAD risk [facility] : 1960 Sex: MFINAL REPORT PROCEDURE: PET/CT Rest/Stress MYOCARDIAL PERFUSION with regadenoson\\XA9\\CPTCODE: 29914WANLXAPHEZ: CADPROTOCOL: Limited low-dose CT imaging was performed [...] Eden MDReport Verified Date/Time: 05/30/2022 23:00:16 POCT-GLUCOSE [id number] 21:22:07 Test Item Value Reference Range Interpretation Comments POC-GLUCOSE METER 113 mg/dL 70-110 H : TESTED A T [facility] 6720 (SANAM) (test code = [place], 1538) 67006: Slip Seat Coverer/Techni ilir ID = [id number] for Ashley Hartmann SARS-COV2/RT-PCR ([facility])2022-05-30 17:11:48 Test Item Value Reference Range Interpretation Comments SARS-COV2/RT-PCR Negative Negative The SARS-Co V-2 target (test code = nucleic acids a re not [id number]) detected in thi s specimen. Negative result [...] sooner. Fact Sheet for Healthcare Providers: https://www.cepheid.co m/Documents/Xpert%20Xpress%20SARS%20CoV-2/Fact%20Sheets/302-8916%73MABG-VNU-3%20 HEALTHCARE%20PROVIDERS%20FACT%20SHEET.pdf Fact Sheet for Healthcare Patients: https://www.cepheid.com/Documents/Xpert%20Xp ress%20SARS%20CoV-2/Fact%20Sheets/302-3801%39DFUM-KZZ-9%20PATIENT%20FACT%20SHEET .pdfPOCT-GLUCOSE [id number] 17:06:14 Test Item Value Reference Range Interpretation Comments POC-GLUCOSE METER 164 mg/dL 70-110 H : TESTED A T [facility] 6720 (BEAKER) (test code = [facility], 1538) 47919: Slip Seat Coverer/Techni ilir ID = [id number] for Do hodge Eric POCT-GLUCOSE [id number] 08:05:36 Test Item Value Reference Range Interpretation Comments POC-GLUCOSE METER 96 mg/dL 70-110 : TESTED A T [facility] 6720 (BEAKER) (test code = [facility], 1538) 14126: Slip Seat Coverer/Techni ilir ID = [id number] for Gabriela payan Eric BASIC METABOLIC [id number] 05:09:47 Test Item Value Reference Range Interpretation [...] not appl icable for dialysis patien ts Slip Seat Coverer ID - MANPREET [id number] 05:09:47 Test Item Value Reference Range Interpretation Comments MAGNESIUM (BEAKER) (test code = 1.6 mg/dL 1.6-2.6 627) Slip Seat Coverer ID - MANPREET [id number] 05:09:47 Test Item Value Reference Range Interpretation Comments PHOSPHORUS (BEAKER) (test code = 3.7 mg/dL 2.3-4.7 604) Slip Seat Coverer ID - MANPREET GCBC W/PLT COUNT & AUTO [id number] 04:50:40 Test Item Value Reference Range Interpretation [...] (BEAKER) (test code = 2801) Carotid doppler [id number] 21:49:59Ejection FractionSLEH ECHO HEARTLAB MKCKESSON [facility] Picture [facility] Television HospitalCarotid doppler [id number] 21:49:59Ejection FractionSLEH ECHO HEARTLAB [facility]ON [facility] HospitalPOCT-GLUCOSE [id number] 21:16:22 Test Item Value Reference Range Interpretation Comments POC-GLUCOSE METER 118 mg/dL 70-110 H : TESTED A T [facility] 6720 (BEAKER) (test code = [facility] [place], 1538) 59033: Slip Seat Coverer/Techni ilir ID = [id number] for PE RALES, SUDHA CARCINOEMBRYONIC ANTIGEN (CEA)2022-05-29 17:38:23 Test Item Value Reference Range Interpretation Comments CARCINOEMBRYONIC ANTIGEN (BEAKER) 2.9 ng/mL 0.0-5.0 (test code = 685) Slip Seat Coverer ID - BSALPHA FETOPROTEIN (AFP), TUMOR [id number] 17:38:23 Test Item Value Reference Range Interpretation Comments ALPHA-FETOPROTEIN (BEAKER) (test 4.7 ng/mL <10.0 code = 1094) Slip Seat Coverer ID - BSPOCT-GLUCOSE [id number] 16:54:18 Test Item Value Reference Range Interpretation Comments POC-GLUCOSE METER 176 mg/dL 70-110 H : TESTED A T [facility] 6720 (BEAKER) (test code = [facility] [place], 1538) 55828: Slip Seat Coverer/Techni ilir ID = [id number] for Aubrey Altamirano POCT-GLUCOSE [id number] 11:26:02 Test Item Value Reference Range Interpretation Comments POC-GLUCOSE METER 99 mg/dL 70-110 : TESTED A T [facility] 6720 (BEAKER) (test code = [facility], 1538) 74648: Slip Seat Coverer/Techni ilir ID = [id number] for Gabriela payan Eric CBC W/PLT COUNT & AUTO [id number] 10:23:04 Test Item Value Reference Range Interpretation [...] PERCENT (BEAKER) (test code = 2801) PROTHROMBIN TIME/[id number] 08:41:01 Test Item Value Reference Range Interpretation Comments PROTIME (BEAKER) 10.9 seconds 9.8-12.0 (test code = 759) INR (BEAKER) (test 0.99 See_Comment [Automat ed message] code = 370) The system GeeYee generated this result transmitted ref erence range: <=5.90. The reference range was not used to int erpret this result as normal/abnormal . RECOMMENDED COUMADIN/WARFARIN INR THERAPY RANGESSTANDARD DOSE: 2.0 - 3.0 Includes: PROPHYLAXIS for venous thrombosis, systemic embolization; TREATMENT for venous thrombosis and/or pulmonary embolus.HIGH RISK: Target INR is 2.5-3.5 for patients with mechanical heart valves.POCT-GLUCOSE [id number] 07:36:23 Test Item Value Reference Range Interpretation Comments POC-GLUCOSE METER 98 mg/dL 70-110 : TESTED A T [facility] 6720 (BEAKER) (test code = [facility], 1538) 82030: Slip Seat Coverer/Techni ilir ID = [id number] for Eric Renteria BASIC METABOLIC [id number] 06:13:40 Test Item Value Reference Range Interpretation [...] not appl icable for dialysis patien ts Slip Seat Coverer ID - MANPREET [id number] 06:13:40 Test Item Value Reference Range Interpretation Comments MAGNESIUM (BEAKER) (test code = 1.7 mg/dL 1.6-2.6 627) Slip Seat Coverer ID - MANPREET [id number] 06:13:40 Test Item Value Reference Range Interpretation Comments PHOSPHORUS (BEAKER) (test code = 3.1 mg/dL 2.3-4.7 604) Slip Seat Coverer GALI Godoy
[2023-02-11] MEDS ORDERED: ONDANSETRON 4 MG (ODT) TAB ONE (07:38)
[2023-02-11] MEDS ORDERED: NA CHLORIDE 0.9% 1,000 ML ONE (07:38)
[2023-02-11] MEDS ORDERED: HYDROCODONE/APAP 5/325 MG TAB ONE (07:38)
[2023-02-11 07:44] LABS: Absolute Lymphocytes (CBC) 3.4 K/uL (0.7-4.9); Hematocrit 45.5 % (39.6-49.0); Lymphocytes % 32.6 % (15.3-44.8); MCV 92.1 fL (80-100); MPV 7.6 fL (7.6-11.3); RBC Red Blood Cell Count 4.94 M/uL (4.33-5.43)
--- NOTE | 2023-02-11 07:54 | RAD REPORT ---
EXAM DESCRIPTION: CTSpine Lumbar Wo Con02/11/2023 7:41 am CLINICAL HISTORY: Back pain. Colon cancer COMPARISON: 2021 x-ray TECHNIQUE: Computed axial tomography lumbar spine was obtained with coronal and sagittal reconstruct ion. All CT scans are performed using dose optimization technique as appropriate and may include automated exposure control or mA/KV adjustment according to patient size. FINDINGS: No fracture. No dislocation Mild spondylosis L1-2, L2-3 and L3-4 Disc bulge, ligamentum flavum and facet hypertrophy L4-5 result in thecal sac measuring 9 millimeters . Mild narrowing of the neural foramina bilaterally. 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 If patient's symptoms persist MRI lumbar spine would be recommended for further evaluation Right common iliac artery aneurysm 2.4 centimeters
--- NOTE | 2023-02-11 07:57 | RAD REPORT ---
EXAM DESCRIPTION: Joshua Single View02/11/2023 7:47 am CLINICAL HISTORY: sob COMPARISON: 2021 FINDINGS: Calcified granuloma left lung. Lungs are mildly hyperaerated. The lungs appear clear of acute infiltrate. The heart is normal size IMPRESSION: No acute abnormalities displayed
[2023-02-11 08:01] LABS: Potassium 3.9 mEq/L (3.5-5.1)
--- NOTE | 2023-02-11 09:18 | EDPHYS ---
Physician Documentation [facility] Ihsan Name: Alexander Leigh Age: 62 yrs Sex: Male : 1960 Arrival Date: 02/11/2023 Time: 07:15 Bed 6 Private MD: ED Physician Tyrel Hogue HPI: 02/11 09:20 This 62 yrs old Male presents to ER via EMS with complaints of Lower back pain and cp3 generalized headache. 07:28 Patient is a 62-year-old male with a history of hypertension, gout, colon cancer, back cp3 pain who presents with acute worsening of lower back pain over the last 2 days. Patient endorses shortness of breath that he describes as dyspnea on exertion. The patient denies fever, chills, nausea, vomiting, chest pain. The patient endorses he was hospitalized 2 months ago and since that time has not been ambulatory and was advised that he had a stroke patient previously admitted at [facility]. The patient describes the pain as aching and cramping pain rated at 6 out of 10. Patient notes states that he is allergic to morphine. Patient is on lisinopril, Leopold, allopurinol in regards to his home medications. Historical: - Allergies: 07:19 Morphine; ll1 - PMHx: 07:19 colon cancer; Hypertensive disorder; ll1 - PSHx: 07:19 Colon; heart cath; ll1 - Immunization history:: Adult Immunizations up to date. - Social history:: Smoking status: Patient reports the use of cigarette tobacco products, smokes one pack cigarettes per day. - Hospitalizations: : Patient was recently seen at Patient endorses he was admitted at [facility] secondary to possible stroke about 2 months ago. - History obtained from: EMS, EMS endorsed patient called for flank pain. Patient's history consistent with lower back pain. Patient denies dysuria or hematuria. ROS: 07:28 Constitutional: Negative for fever, chills, and weight loss, Eyes: Negative for injury, cp3 pain, redness, and discharge, ENT: Negative for injury, pain, and discharge, Neck: Negative for injury, pain, and swelling, Cardiovascular: Negative for chest pain, palpitations, and edema, patient endorses shortness of breath, dyspnea on exertion Abdomen/GI: Negative for abdominal pain, nausea, vomiting, diarrhea, and constipation, : Negative for injury, bleeding, discharge, and swelling, MS/Extremity: Negative for injury and deformity, patient endorses lower back pain, not ambulatory for the last 2 months per subjective history Skin: Negative for injury, rash, and discoloration, Psych: Negative for depression, anxiety, suicide ideation, homicidal ideation, and hallucinations, Hematologic/Lymphatic: Negative for swollen nodes, abnormal bleeding, and unusual bruising. 07:28 Respiratory: Positive for dyspnea on exertion, shortness of breath. cp3 07:28 Back: Positive for of the left low back and right low back. Exam: 07:34 Constitutional: This is a well developed, well nourished patient who is awake, alert, cp3 and in no acute distress. Head/Face: Normocephalic, atraumatic. Eyes: Pupils equal round and reactive to light, extra-ocular motions intact. Lids and lashes normal. Conjunctiva and sclera are non-icteric and not injected. Cornea within normal limits. Periorbital areas with no swelling, redness, or edema. ENT: Nares patent. No nasal discharge, no septal abnormalities noted. Tympanic membranes are normal and external auditory canals are clear. Oropharynx with no redness, swelling, or masses, exudates, or evidence of obstruction, uvula midline. Mucous membranes moist. Neck: Trachea midline, no thyromegaly or masses palpated, and no cervical lymphadenopathy. Supple, full range of motion without nuchal rigidity, or vertebral point tenderness. No Meningismus. Chest/axilla: Normal chest wall appearance and motion. Nontender with no deformity. No lesions are appreciated. Cardiovascular: Regular rate and rhythm with a normal S1 and S2. No gallops, murmurs, or rubs. Normal PMI, no JVD. No pulse deficits. Respiratory: Lungs have equal breath sounds bilaterally, clear to auscultation and percussion. No rales, rhonchi or wheezes noted. No increased work of breathing, no retractions or nasal flaring. No wheezing, no rales no rhonchi noted on exam Abdomen/GI: Soft, non-tender, with normal bowel sounds. No distension or tympany. No guarding or rebound. No evidence of tenderness throughout. Back: No spinal tenderness. No costovertebral tenderness. Full range of motion. Patient paraspinal lumbar tenderness bilaterally patient can move legs with discomfort which is baseline per patient Skin: Warm, dry with normal turgor. Normal color with no rashes, no lesions, and no evidence of cellulitis. MS/ Extremity: Pulses equal, no cyanosis. Neurovascular intact. Full, normal range of motion. Neuro: Awake and alert, GCS 15, oriented to person, place, time, and situation. Cranial nerves II-XII grossly intact. Motor strength 5/5 in all extremities. Sensory grossly intact. Cerebellar exam normal. Normal gait. Psych: Awake, alert, with orientation to person, place and time. Behavior, mood, and affect are within normal limits. Vital Signs: 07:18 BP 116 / 91; Pulse 64; Resp 18; Temp 97.4; Pulse Ox 100% ; ko1 07:45 BP 114 / 83; Pulse 73; Resp 16; Pulse Ox 100% ; ko1 08:00 BP 119 / 79; Pulse 64; Resp 18; Pulse Ox 100% ; ko1 08:15 BP 114 / 79; Pulse 63; Resp 16; Pulse Ox 98% ; ko1 MDM: 07:18 Patient medically screened. cp3 08:52 Data reviewed: External records review: Patient with a MRI in 06/2022 in which at L4 cp3 and L5 there is noted to be moderate broad-based disc bulge with central canal narrowing and mild posterior disc bulge at L5-S1 with bilateral renal cysts . 09:12 Differential Diagnosis The differential diagnosis includes acute exacerbation of cp3 chronic back pain, dehydration, generalized headache that has resolved. Patient with patient with chronic DJD and herniated disc on CT consistent with MRI from 2021. On repeat evaluation headache is improved and back pain is improved. Patient stable for discharge. Patient's exam consistent with previous documented exams of lower extremity weakness. Patient endorses he has not been ambulatory for several months and is without change.. Consideration of Admission/Observation Escalation of care including admission/observation considered. Patient with no emergent indication for hospitalization at this time. Patient with chronic lumbar radiculopathy and headache that has resolved. Independent interpretation of the following test(s) in the Emergency Department playground monitor: rate is 63 beats/min, Rhythm is normal sinus rhythm, Interpretation: normal rate. Test considered but Not performed: MRI: MRI considered but patient has had previous MRI within the last year. External Records Reviewed:. Medication response: Patient improved after Leopold and IV fluids. 02/11 07:25 Order name: CBC with Diff; Complete Time: 08:22 cp3 02/11 08:22 Interpretation: Within normal limits. cp3 02/11 07:25 Order name: Basic Metabolic Panel; Complete Time: 08:22 cp3 02/11 08:23 Interpretation: Within normal limits. cp3 02/11 07:27 Order name: Troponin High Sensitivity; Complete Time: 08:55 cp3 02/11 07:27 Order name: CXR XRAY; Complete Time: 08:22 cp3 02/11 08:24 Interpretation: Chest x-ray interpreted by me negative acute for cardiopulmo. cp3 02/11 07:27 Order name: CT Lumbar Spine Wo Con; Complete Time: 08:22 cp3 02/11 08:25 Interpretation: CT of the lumbar spine reviewed patient with facet hypertrop, CT of the cp3 lumbar spine reviewed patient with facet hypertrophy. 02/11 07:27 Order name: EKG; Complete Time: 07:27 cp3 02/11 07:25 Order name: Saline Lock; Complete Time: 07:33 cp3 02/11 07:45 Order name: EKG - Nurse/Tech; Complete Time: 07:52 bp Administered Medications: 07:25 Drug: Ondansetron Oral Disintegrating Tablet Oral Disintegrating Tablet 4 mg Route: PO; ko1 07:34 Drug: NS 0.9% IV 1000 ml Route: IV; Rate: 125 ml/hr; Site: right forearm; ko1 07:34 Drug: HYDROcodone-acetaminophen PO 5 mg-325 mg 2 tabs Route: PO; ko1 Disposition Summary: 02/11/23 09:17 Discharge Ordered Location: Home cp3 Problem: an acute exacerbation cp3 Symptoms: have improved cp3 Condition: Stable cp3 Diagnosis - Radiculopathy, lumbar region cp3 - Low back pain cp3 - Headache cp3 - Dehydration cp3 Followup: cp3 - With: Александр Pitts MD - When: As needed - Reason: If symptoms return Discharge Instructions: - Discharge Summary Sheet cp3 - Acute Back Pain, Adult cp3 - Dehydration, Adult cp3 - Lumbosacral Radiculopathy cp3 Forms: - Medication Reconciliation Form cp3 - Thank You Letter cp3 - Antibiotic Education cp3 - Prescription Opioid Use cp3 - Patient Portal Instructions cp3 Signatures: Dispatcher [employer] Tyrel Morgan MD MD cp3 Roosevelt Harper RN RN Evangelina Thayer RN RN ll1 Zoraida Light RN RN ko1 Corrections: (The following items were deleted from the chart) 08:28 08:25 CT of the lumbar spine reviewed patient with facet hypertrop. cp3 cp3
--- NOTE | 2023-02-11 09:18 | ER ---
Nurse's Notes [facility] Ihsan Name: Alexander Abraham Age: 62 yrs Sex: Male : 1960 Arrival Date: 02/11/2023 Time: 07:15 Bed 6 Private MD: Diagnosis: Radiculopathy, lumbar region;Low back pain;Headache;Dehydration Presentation: 02/11 07:18 Chief complaint: EMS states: bilateral flank pain. Had a stroke about 3 months ago ko1 which left him with generalized weakness. He has neuropathy and gout. He also has had a headache since his discharge from the stroke and it seems it is moving into his neck. Coronavirus screen: At this time, the client does not indicate any symptoms associated with coronavirus-19. Ebola Screen: No symptoms or risks identified at this time. Initial Sepsis Screen: Does the patient meet any 2 criteria? No. Patient's initial sepsis screen is negative. Does the patient have a suspected source of infection? No. Patient's initial sepsis screen is negative. Risk Assessment: Do you want to hurt yourself or someone else? Patient reports no desire to harm self or others. Onset of symptoms is unknown. 07:18 Method Of Arrival: EMS: [facility] ko1 07:18 Acuity: NICOLASA 3 ko1 07:19 Ebola Screen: Patient denies travel to an Ebola-affected area in the 21 days before ll1 illness onset. Risk Assessment: Do you want to hurt yourself or someone else? Patient reports no desire to harm self or others. 07:19 Method Of Arrival: EMS ll1 Triage Assessment: 07:18 General: Appears in no apparent distress. uncomfortable, Behavior is calm, cooperative, ko1 appropriate for age. Pain: Complains of pain in left low back, left mid back, right mid back and right low back. Historical: - Allergies: 07:19 Morphine; ll1 - PMHx: 07:19 colon cancer; Hypertensive disorder; ll1 - PSHx: 07:19 Colon; heart cath; ll1 - Immunization history:: Adult Immunizations up to date. - Social history:: Smoking status: Patient reports the use of cigarette tobacco products, smokes one pack cigarettes per day. - Hospitalizations: : Patient was recently seen at Patient endorses he was admitted at [facility] secondary to possible stroke about 2 months ago. - History obtained from: EMS, EMS endorsed patient called for flank pain. Patient's history consistent with lower back pain. Patient denies dysuria or hematuria. Screenin:24 [facility] ED Fall Risk Assessment (Adult) History of falling in the last 3 months, bp including since admission No falls in past 3 months (0 pts). Abuse screen: Denies threats or abuse. Denies injuries from another. Nutritional screening: No deficits noted. Tuberculosis screening: No symptoms or risk factors identified. Assessment: 07:25 General: SEE TRIAGE NOTE. bp Vital Signs: 07:18 BP 116 / 91; Pulse 64; Resp 18; Temp 97.4; Pulse Ox 100% ; ko1 07:45 BP 114 / 83; Pulse 73; Resp 16; Pulse Ox 100% ; ko1 08:00 BP 119 / 79; Pulse 64; Resp 18; Pulse Ox 100% ; ko1 08:15 BP 114 / 79; Pulse 63; Resp 16; Pulse Ox 98% ; ko1 ED Course: 07:17 Patient arrived in ED. ds4 07:18 Tyrel Hogue MD is Attending Physician. cp3 07:18 Zoraida Lgiht, RN is Primary Nurse. ko1 07:19 Arm band placed on Patient placed in an exam room, on a stretcher. ll1 07:21 Triage completed. ko1 07:24 Patient has correct armband on for positive identification. Bed in low position. Call bp light in reach. Side rails up X2. 07:34 Troponin High Sensitivity Sent. ko1 07:34 Basic Metabolic Panel Sent. ko1 07:34 CBC with Diff Sent. ko1 07:34 Inserted saline lock: 20 gauge in right forearm, using aseptic technique. Blood bp collected. 07:43 CT Lumbar Spine Wo Con In Process Unspecified. EDMS 07:49 CXR XRAY In Process Unspecified. EDMS 08:47 Tyrel Hogue MD is Attending Physician. cp3 09:15 Александр Pitts MD is Referral Physician. cp3 09:29 Provided Education on: NA. ko1 09:29 No provider procedures requiring assistance completed. IV discontinued, intact, ko1 bleeding controlled, No redness/swelling at site. Pressure dressing applied. Administered Medications: 07:25 Drug: Ondansetron Oral Disintegrating Tablet Oral Disintegrating Tablet 4 mg Route: PO; ko1 07:34 Drug: NS 0.9% IV 1000 ml Route: IV; Rate: 125 ml/hr; Site: right forearm; ko1 07:34 Drug: HYDROcodone-acetaminophen PO 5 mg-325 mg 2 tabs Route: PO; ko1 Medication: 07:24 VIS not applicable for this client. bp Outcome: 09:17 Discharge ordered by . cp3 09:29 Discharged to home via wheelchair. ko1 09:29 Condition: stable :29 Discharge instructions given to patient, Instructed on discharge instructions, follow up and referral plans. Demonstrated understanding of instructions, follow-up care. 09:29 Patient left the ED. ko1 Signatures: Dispatcher [employer] EDMS Tyrel Hogue MD MD cp3 Deon Anderson4 Roosevelt Harper, RN Evangelina Lockett RN RN ll1 Zoraida Light RN RN ko1
[2023-02-11 09:41] VITALS: TEMP 97.4
[2023-02-11 09:57] VITALS: BP 114/79; O2SAT 98
--- NOTE | 2023-02-15 13:18 | EKG ---
Test Date: 2023-02-11 Test Time: 07:50:59 [employer] Knife [employer]immer: BP MEASUREMENT RESULTS: Intervals: Rate: 68 KS: 176 QRSD: 130 QT: 418 QTc: 444 [place]: P: 47 [place]: 176 QRS: 84 T: 60 INTERPRETIVE STATEMENTS: Normal sinus rhythm Right bundle branch block Abnormal ECG Compared to ECG 06/12/2022 12:05:11 No significant changes Electronically Signed On 02-15-23 13:11:41 CDT by David Mtz
== END 2023-02-11 09:29 | disposition home or self-care (01) ==
LOC: ER 07:15
DX: M54.16 Radiculopathy, lumbar region (principal); E86.0 Dehydration; R51.9 Headache, unspecified; I10 Essential (primary) hypertension; F17.210 Nicotine dependence, cigarettes, uncomplicated; Z88.5 Allergy status to narcotic agent
CPT/HCPCS: 36415; 71045; 72131; 80048; 84484; 85025; 93005; 99284; J7030; Q0162

== ENCOUNTER 2023-02-12 20:55 | Emergency (ER) | payer SELFPAY ==
--- OUTSIDE RECORDS SUMMARY | 2023-02-12 21:04 | XMS REPORT | Continuity of Care Document ---
:1960 Author Organization [facility] t Address [address] [facility] [address] [place] [id number] Care Team Providers Name Role Phone ANICETO TA Attending Clinician Unavailable Daniel AHMADI, Syeda Martinez Attending Clinician Aniceto Ta MD Attending Clinician Kirsten AHMADI, Alexis [place] Attending Clinician Teja Bateman MD Attending Clinician Bryan Guo MD Attending Clinician Arin Quezada MD Attending Clinician [phone] BRYAN ESQUIVEL Attending Clinician Unavailable Cristóbal AHMADI, Merissa Arizmendi Attending Clinician [phone] Bryan Esquivel MD Attending Clinician Billie [...] [facility] 00 [place] Coronary Coronary Disease [facility] disease disease 00:[facility]: Medical involving involving [facility] coronary coronary artery artery Hypertensi Hypertensi Disease Active 2021-[address] [facility]01 [facility] 00 [place] HLD HLD Disease Active 2021-[address] [facility] [address] (hyperlipi (hyperlipi 08-01 [facility] demia) demia) 00:00: Medical 00 [place] Smoker Smoker Disease Active 2021-[address] [facility] [facility] 00 [place] Thrombocyt Thrombocyt Disease Active 2021-[address] openia openia 08-01 [facility]: Medical 00 [place] Cellulitis Cellulitis Disease Active 2021-[address] of back of back 08-01 [facility] except except 00:00: Medical buttock buttock 00 Center Epigastric Epigastric Disease Active 2021-[address] pain pain 08-01 [facility] 00:[facility]: Medical 00 [place] Deconditio Deconditio Disease Active 2021-[address] jodie low jodie low 08-01 [facility] back back 00:00: Medical 00 [place] Frail Frail Disease Active 2021-[address] [facility] elderly elderly 08-01 [facility]: Medical 00 [place] Other Other Disease Active 2021-[address] [facility] chest pain chest pain 08-01 [facility] 00:00: Medical 00 [place] Paresthesi Paresthesi Disease Active 2021-[address] as with as with 08-01 [facility] subjective subjective 00:00: Me dical weakness weakness 00 [place] History of History of Disease Active 2021-[address] colon colon 08-01 [facility] cancer cancer 00:00: Medical 00 [place] Adynamic Adynamic Disease Active 2021-[facility]us ileus [facility]: Medical 00 [place] Weight Weight Disease Active 2021-[address] [facility] loss, loss, 08-01 [facility] unintentio unintentio 00:00: Me dical nal nal 00 [place] (Ambrocio) (Ambrocio) Disease Active 2021-07 [facility] [...] Date Stop Date Quantity Comments Source History [facility] History [facility] 2022-06-19 2022-06-[address] [facility] Transport Med 00:00:00 00:00:[address] History [facility] Housing 2022-06-19 2022-06-[address] [facility] Unable to Pay 00:00:00 00:00:[address] History [facility] Housing 2022-06-19 2022-06-[address] [facility] Places Lived 00:00:00 00:00:00 Medical Cent er History [facility] Housing 2022-06-19 2022-06-[address] [facility] Homeless Last Year 00:00:00 00:00:00 [facility] [place] Exposure to 2022-05-19 2022-05-[address] [facility] SARS-CoV-2 (event) 00:00:00 01:39:00 [facility] [place] Cigarettes smoked 2022-05-29 2022-05-[address] [facility] current (pack per 00:00:00 00:00:00 Medical Center day) - Reported Tobacco use and 2022-05-29 2022-05-[address] [facility] [address] [facility] exposure 00:00:00 00:00:00 [facility] Sex Assigned At [address] [facility] 00:00:00 00:00:00 Medical Center Smoking Status Start Date Stop Date Source Current every day smoker 2022-05-29 00:00:00 [facility] Medications Ordered Filled Start Stop Current Ordering Indication Dosage Frequency Signature Comments Components Source Medication Medication Date Date Medication? Clinician (SIG) Name Name amLODIPine Yes 10mg QD Take [address] (NORVASC) 1-13 by mouth [facility] 10 MG 19:13: daily. Medical tablet [address] [place] [address] enalapril Yes 10mg QD Take 10 mg [...] [facility] I [facility] sod 1-05 tablet by [facility] 00:00: mouth Medic al pper 00 daily. [place] (Prosight) 5,000-60-30 unit-mg-uni t Tab enoxaparin Yes [...] edical 17 gram 00 :00 3 days. [place] packet insulin 2023- No 0U Inject 0-8 [...] for 30 days. cyclobenzap 2022- No 5mg [id number] Take [address] rine 07-15 [id number] tablet (5 Balbina es (FLEXERIL) 00:00: 23:59 [...] mouth Center nightly. gabapentin 2021-07- No 300mg [id number] Take [address] (NEURONTIN) 08-08- [id number] capsule [facility] 300 MG 00:00: 00:00 3D (300 mg Medical capsule 00 :00 total) by Center mouth 3 (three) times daily. gabapentin 2021-07- No 300mg [id number] Take [address] (NEURONTIN) 08-08- [id number] capsule [facility] 300 MG 00:00: 00:00 3D [...] cm Systolic blood 2022-07-24 16:00:00 131 mm[Hg] [facility] Diastolic blood 2022-07-24 16:00:00 80 mm[Hg] [facility] Heart rate 2022-07-24 16:00:00 78 /min [facility] Body temperature 2022-07-24 16:00:00 36.28 Caprice [facility] Respiratory rate 2022-07-24 16:00:00 18 /min [facility] Oxygen saturation in 2022-07-24 16:00:00 98 /min [facility] Arterial blood by Medical Ce nter Pulse oximetry Body weight 2022-07-19 07:20:00 72.1 kg [facility] BMI 2022-07-19 07:20:00 24.17 kg/m2 [facility] Body height 2022-06-19 00:24:00 172.7 cm [facility] Systolic blood 2022-06-09 15:22:00 137 mm[Hg] [facility] Diastolic blood 2022-06-09 15:22:00 98 mm[Hg] [facility] Heart rate 2022-06-09 15:22:00 85 /min [facility] Body temperature 2022-06-09 15:22:00 36.5 Caprice [facility] Respiratory rate 2022-06-09 15:22:00 18 /min [facility] Oxygen saturation in 2022-06-09 15:22:00 98 /min [facility] Arterial blood by Medical Ce nter Pulse oximetry Body weight 2022-06-07 07:29:00 67.7 kg [facility] BMI 2022-06-07 07:29:00 22.69 kg/m2 [facility] Body height 2022-05-29 01:00:00 172.7 cm [facility] Procedures Procedure Date / Time Performing Clinician Source Performed BASIC METABOLIC PANEL 2022-07-24 12:46:00 Yaz Smith [facility] ELECTROLYTES 2022-07-21 12:14:00 Cristy [facility] POCT-GLUCOSE METER 2022-07-21 11:34:00 Cristy [facility] POCT-GLUCOSE METER 2022-07-21 08:14:00 Cristy [facility] POCT-GLUCOSE METER 2022-07-20 17:20:00 Ta [facility] POCT-GLUCOSE METER 2022-07-20 [facility]:43[facility] 20[facility]-07-20 08:30:00 Cristy [facility] SARS-COV2/RT-PCR ([facility] & 2022-07-20 05:41:00 Cristy [facility] POCT-GLUCOSE METER 2022-07-19 21:16:00 Ta Aniceto [facility] POCT-GLUCOSE METER 2022-07-19 18:30:00 Ta, [facility] POCT-GLUCOSE METER 2022-07-19 07:52:00 Ta, [facility] BASIC METABOLIC PANEL 2022-07-19 05:46:00 B[facility] POCT-GLUCOSE METER 2022-07-18 21:53:00 Ta [facility] POCT-GLUCOSE METER 2022-07-18 17:01:00 Ta [facility] POCT-GLUCOSE METER 2022-07-18 12:55:00 Ta, [facility] POCT-GLUCOSE METER 2022-07-18 07:53:00 [facility] BASIC METABOLIC PANEL 2022-07-18 05:50:00 [facility]hav[facility] CBC W/PLT COUNT & AUTO 2022-07-18 05:50:00 Bhavana [facility] CBC W/PLT COUNT & AUTO 2022-07-18 05:50:00 Bhavana [facility] POCT-GLUCOSE METER 2022-07-17 21:40:00 Cristy [facility] POCT-GLUCOSE METER 2022-07-17 17:22:00 Cristy [facility] POCT-GLUCOSE METER 2022-07-17 12:44:00 Ta [facility] POCT-GLUCOSE METER 2022-07-17 08:07:00 [facility] BASIC METABOLIC PANEL 2022-07-17 05:41:00 [facility] POCT-GLUCOSE METER 2022-07-16 21:19:00 Ta [facility] POCT-GLUCOSE METER 2022-07-16 17:48:00 Ta, [facility] POCT-GLUCOSE METER 2022-07-16 12:52:00 Ta [facility] POCT-GLUCOSE METER 2022-07-16 08:25:00 [facility] BASIC METABOLIC PANEL 2022-07-16 03:41:00 [facility] CBC W/PLT COUNT & AUTO 2022-07-16 03:41:00 Bhavana [facility] CBC W/PLT COUNT & AUTO 2022-07-16 03:41:00 Bhavana [facility] POCT-GLUCOSE METER 2022-07-15 21:44:00 Ta [facility] POCT-GLUCOSE METER 2022-07-15 16:43:00 [facility] CORTISOL,60 MIN 2022-07-15 12:23:00 [facility] POCT-GLUCOSE METER 2022-07-15 11:58:00 [facility] CORTISOL,30 MIN 2022-07-15 11:49:00 [facility] ACTH STIMULATION 2022-07-15 10:04:00 Dexter [facility] CORTISOL,BASELINE 2022-07-15 10:04:00 Leonel Renteria [facility] POCT-GLUCOSE METER 2022-07-15 08:19:00 Cristy [facility] D-DIMER 2022-07-15 04:51:00 [facility] 2022-07-15 04:50:00 [facility] POCT-GLUCOSE METER 2022-07-14 21:42:00 [facility] POCT-GLUCOSE METER 2022-07-14 17:39:00 [facility] POCT-GLUCOSE METER 2022-07-14 12:52:00 Ta [facility] XR CHEST 1 VIEW PORTABLE / 2022-07-14 11:27:[address] [facility] POCT-GLUCOSE METER 2022-07-14 09:50:00 Cristy Aniceto [facility] POCT-GLUCOSE METER 2022-07-14 08:21:00 [facility] BASIC METABOLIC PANEL 2022-07-14 05:38:00 [facility]hav[facility] CBC W/PLT COUNT & AUTO 2022-07-14 05:38:00 [facility] 2022-07-14 05:38:00 Dexter [facility] CBC W/PLT COUNT & AUTO 2022-07-14 05:38:00 Bhavana [facility] POCT-GLUCOSE METER 2022-07-13 21:53:00 Aniceto Ta [facility] POCT-GLUCOSE METER 2022-07-13 17:18:00 Bhavana [facility] BASIC METABOLIC PANEL 2022-07-13 17:02:00 Dexter [facility] SARS-COV2/RT-PCR ([facility] & 2022-07-13 14:59:00 Cristy Aniceto [facility] POCT-GLUCOSE METER 2022-07-13 12:10:00 Bhavana [facility] POCT-GLUCOSE METER 2022-07-13 08:25:00 Bhavana [facility] BASIC METABOLIC PANEL 2022-07-13 04:04:00 [facility] POCT-GLUCOSE METER 2022-07-12 21:13:00 [facility] POCT-GLUCOSE METER 2022-07-12 17:54:00 [facility] POCT-GLUCOSE METER 2022-07-12 12:19:00 [facility] POCT-GLUCOSE METER 2022-07-12 07:42:00 Bhavana [facility] CBC W/PLT COUNT & AUTO 2022-07-12 05:12:00 Bhavana [facility] BASIC METABOLIC PANEL 2022-07-12 05:12:00 Bhavana [facility] CBC W/PLT COUNT & AUTO 2022-07-12 05:12:00 Bhavana [facility] POCT-GLUCOSE METER 2022-07-11 21:20:00 [facility] POCT-GLUCOSE METER 2022-07-11 17:37:00 Bhavana [facility] POCT-GLUCOSE METER 2022-07-11 12:22:00 [facility] POCT-GLUCOSE METER 2022-07-11 07:33:00 Bhavana [facility] CBC W/PLT COUNT & AUTO 2022-07-11 04:06:00 Bhavana [facility] BASIC METABOLIC PANEL 2022-07-11 04:06:00 [facility] CORTISOL 2022-07-11 04:06:00 Luis [facility] CBC W/PLT COUNT & AUTO 2022-07-11 04:06:00 Bhavana [facility] POCT-GLUCOSE METER 2022-07-10 17:46:00 [facility] POCT-GLUCOSE METER 2022-07-10 11:31:00 [facility] POCT-GLUCOSE METER 2022-07-10 07:22:00 [facility] SODIUM NA-STAT LAB 2022-07-10 05:56:00 Luis [facility] CBC W/PLT COUNT & AUTO 2022-07-10 05:32:00 Bhavana, [facility] BASIC METABOLIC PANEL 2022-07-10 05:32:00 Bhavana [facility] URIC ACID 2022-07-10 05:32:00 Luis [facility] CBC W/PLT COUNT & AUTO 2022-07-10 05:32:00 Bhavana [facility] POCT-GLUCOSE METER 2022-07-09 21:09:00 Bhavana [facility] OSMOLALITY, SERUM 2022-07-09 13:35:00 Luis [facility] OSMOLALITY, URINE 2022-07-09 13:30:00 Luis [facility] SODIUM, RANDOM URINE 2022-07-09 13:30:00 Luis Yaz Guajardoodalys I [facility] CHLORIDE, RANDOM URINE 2022-07-09 13:30:00 Luis [facility] POCT-GLUCOSE METER 2022-07-09 11:08:00 Bhavana [facility] POCT-GLUCOSE METER 2022-07-09 07:22:00 Bhavana [facility] CBC W/PLT COUNT & AUTO 2022-07-09 03:54:00 Bhavana [facility] BASIC METABOLIC PANEL 2022-07-09 03:54:00 Bhavana [facility] CBC W/PLT COUNT & AUTO 2022-07-09 03:54:00 Bhavana [facility] POCT-GLUCOSE METER 2022-07-08 21:12:00 Bhavana [facility] POCT-GLUCOSE METER 2022-07-08 17:24:00 Bhavana [facility] POCT-GLUCOSE METER 2022-07-08 11:01:00 [facility] POCT-GLUCOSE METER 2022-07-08 07:21:00 Bhavana [facility] CBC W/PLT COUNT & AUTO 2022-07-08 03:50:00 Bhavana [facility] BASIC METABOLIC PANEL 2022-07-08 03:50:00 Bhav[facility] CBC W/PLT COUNT & AUTO 2022-07-08 03:50:00 Bhavana [facility] POCT-GLUCOSE METER 2022-07-07 21:14:00 Bhavana [facility] POCT-GLUCOSE METER 2022-07-07 17:14:00 Bhavana [facility] POCT-GLUCOSE METER 2022-07-07 11:38:00 Bhavana, [facility] POCT-GLUCOSE METER 2022-07-07 08:09:00 Ta [facility] POCT-GLUCOSE METER 2022-07-06 20:41:00 Ta [facility] POCT-GLUCOSE METER 2022-07-06 16:52:00 Ta, [facility] POCT-GLUCOSE METER 2022-07-06 11:49:00 Ta, [facility] SARS-COV2/RT-PCR ([facility] & 2022-07-06 10:42:00 Ta [facility] POCT-GLUCOSE METER 2022-07-06 07:34:00 Ta, [facility] POCT-GLUCOSE METER 2022-07-05 21:49:00 Ta, [facility] POCT-GLUCOSE METER 2022-07-05 17:54:00 Ta, [facility] POCT-GLUCOSE METER 2022-07-05 11:47:00 Ta, [facility] POCT-GLUCOSE METER 2022-07-05 07:58:00 Ta, [facility] POCT-GLUCOSE METER 2022-07-04 21:23:00 Ta, [facility] POCT-GLUCOSE METER 2022-07-04 17:43:00 Ta, Aniceto [facility] POCT-GLUCOSE METER 2022-07-04 11:54:00 Ta, [facility] POCT-[facility]SE METER 2022-07-04 07:53:00 Ta, Anicetofaviola [facility] COPPER 2022-07-04 04:10:00 Ta, [facility]OL[facility] 2022-07-04 04:09:00 Ta, [facility] POCT-GLUCOSE METER 2022-07-03 20:29:00 Ta, Anicetofaviola [facility] POCT-GLUCOSE METER 2022-07-03 17:51:00 Ta, [facility] POCT-[facility]SE METER 2022-07-03 12:19:00 Ta, [facility] POCT-GLUCOSE METER 2022-07-03 08:20:00 Ta, Anicetofaviola [facility] BASIC METABOLIC PANEL 2022-07-03 05:42:00 Alexis Curtis [facility] POCT-GLUCOSE METER 2022-07-02 20:46:00 Ta, [facility] POCT-GLUCOSE METER 2022-07-02 17:22:00 Ta, Aniceto [facility] POCT-GLUCOSE METER 2022-07-02 11:37:00 Ta, Aniceto Danny [facility] POCT-GLUCOSE METER 2022-07-02 07:48:00 Ta, Aniceto Danny [facility] POCT-GLUCOSE METER 2022-07-01 21:31:00 Ta, Aniceto Danny [facility] POCT-GLUCOSE METER 2022-07-01 17:29:00 Ta, Aniceto Danny [facility] POCT-GLUCOSE METER 2022-07-01 12:56:00 Ta, Aniceto Danny [facility] POCT-GLUCOSE METER 2022-07-01 07:21:00 Ta, Aniceto Delgado [facility] POCT-GLUCOSE METER 2022-06-30 22:02:00 Kirsten Alexis [facility] POCT-GLUCOSE METER 2022-06-30 17:54:00 Kirsten [facility] POCT-GLUCOSE METER 2022-06-30 11:50:00 Kirsten [facility] POCT-GLUCOSE METER 2022-06-30 07:37:00 Kirsten Alexis [facility] BASIC METABOLIC PANEL 2022-06-30 03:30:00 Duc [facility] POCT-GLUCOSE METER 2022-06-29 21:44:00 Kirsten [facility] POCT-GLUCOSE METER 2022-06-29 18:07:00 Duc [facility] SARS-COV2/RT-PCR ([facility] & 2022-06-29 16:48:00 Aniceto Ta [facility] REF LABS) [facility] PARANEOPLAS AB SCR,IFA,CSF 2022-06-29 16:47:00 Garcia [facility] AQP4 AB (IGG), SCREEN, CSF 2022-06-29 16:47:00 Jose [facility] AQP4 AB (IGG),TITER,CSF 2022-06-29 16:47:[address] [facility] PHOENIX-3 AB, IFA TITER, CSF 2022-06-29 16:47:00 Garcia, [facility] NUTRITION SERVICES WORKER-2 AB, TITER, CSF 2022-06-29 16:47:00 [facility] PARANEOPLASTIC AB, LB, CSF 2022-06-29 16:47:00 [facility]LAS AB,CBA,IFA,CSF 2022-06-29 16:47:00 Garcia [facility] PARANEOPLASTIC, NMDAR1 2022-06-29 16:47:00 Garcia, [facility] PARANEOPLASTIC, AMPAR1 2022-06-29 16:47:00 Garcia, [facility] PARANEOPLASTIC, AMPAR2 2022-06-29 16:47:00 Garcia, [facility] PARANEOPLASTIC, GABABR 2022-06-29 16:47:00 Garcia, [facility] PARANEOPLASTIC, LGI1 2022-06-29 16:47:00 Garcia, [facility] PARANEOPLASTIC, CASPR2 2022-06-29 16:47:00 Garcia, [facility] VGKC ANTIBODY, CSF 2022-06-29 16:47:00 Garcia, [facility] PARANEOPLASTIC AB EVAL W/ 2022-06-29 16:47:00 Garcia, [facility] REFLEX TITER & LB, CSF [facility] C enter ANGIOTENSIN CONVERTING 2022-06-29 16:47:00 Joe Arciniega [facility] Romain [facility] ENZYME (CARROL) [facility] HTLV 1/2 ANTIBODY 2022-06-29 16:47:00 Joe Arciniega [facility] IMMUNOGLOBULINS PANEL, CSF 2022-06-29 16:46:00 Garcia, Miki [facility] ([facility]) [facility] GLUCOSE, CSF 2022-06-29 16:41:00 Garcia, [facility] PROTEIN, CSF 2022-06-29 16:41:00 Garcia, [facility] CSF CELL COUNT 2022-06-29 16:41:00 Garcia, [facility] W/[facility] VDRL, CSF 2022-06-29 16:41:00 Garcia, [facility] ALBUMIN, CSF 2022-06-29 16:41:00 Garcia, [facility] AQUAPORIN-4 (AQP4)(NMO-IGG) 2022-06-29 16:41:00 Garcia, [facility] ANTIBODY WITH REFLEX TO Medical Center TITER, CF OLIGOCLONAL BANDS 2022-06-29 16:39:00 Garcia, [facility] PROTEIN ELECTROPHORESIS, 2022-06-29 16:39:00 Garcia, [facility] IGG INDEX (CSF + BLOOD) 2022-06-29 16:39:00 Garcia, [facility] PROTEIN, CSF 2022-06-29 16:39:00 Garcia, [facility] PROTEIN ELECTROPHORESIS, 2022-06-29 16:39:00 Garcia, [facility] CSF CULTURE + GRAM STAIN 2022-06-29 16:38:00 Garcia, [facility] POCT-GLUCOSE METER 2022-06-29 12:33:00 Alexis Curtis [facility] CBC W/PLT COUNT & AUTO 2022-06-29 03:05:00 Alexis Curtis [facility] BASIC METABOLIC PANEL 2022-06-29 03:05:00 Kirsten Alexis [facility] CBC W/PLT COUNT & AUTO 2022-06-29 03:05:00 Alexis Curtis [facility] POCT-GLUCOSE METER 2022-06-28 21:52:00 Alexis Curtis yovani [facility] POCT-GLUCOSE METER 2022-06-28 11:47:00 Alexis Curtis [facility] POCT-GLUCOSE METER 2022-06-28 07:42:00 Alexis Curtis [facility] POCT-GLUCOSE METER 2022-06-27 20:56:00 Alexis Curtis yovani [facility] POCT-GLUCOSE METER 2022-06-27 16:47:00 Alexis Curtis yovani [facility] POCT-GLUCOSE METER 2022-06-27 12:16:00 Alexis Curtis [facility] POCT-GLUCOSE METER 2022-06-27 08:30:00 Alexis Curtisgisselle [facility] POCT-GLUCOSE METER 2022-06-26 23:54:00 Kirsten Alexis [place] [facility] COPPER 2022-06-26 10:38:00 Joe Arciniega, Lynne [facility] CBC W/PLT COUNT & AUTO 2022-06-26 05:31:00 Cristy [facility] BASIC METABOLIC PANEL 2022-06-26 05:31:00 Cristy [facility] MAGNESIUM 2022-06-26 05:31:00 [facility] W[facility]T [facility] & AUTO 2022-06-26 05:31[facility]00 [facility] LYME DISEASE AB WITH REFLEX 2022-06-25 16:53:00 Jose, [facility] SJOGREN'S ANTIBODIES 2022-06-25 16:53:00 Jose, [facility] MISCELLANEOUS LAB ORDER 2022-06-25 16:52:00 Jose, [facility] 2D ECHO W/ DOPPLER 2022-06-25 13:56:31 Jose, [facility] (CW/PW/COLOR) [facility] MR LUMBAR SPINE WITH & 2022-06-24 12:39:00 Kirsten Alexis [place] I [facility] WITHOUT IV CONTRAST Medical Cent er MR THORACIC SPINE WITH & 2022-06-24 12:39:00 KirstenDanielledori [place] [facility] WITHOUT IV CONTRAST Medical Cent er CTA BRAIN 2022-06-23 13:45:00 Jose, [facility] CTA CAROTID 2022-06-23 13:45:00 Jose, [facility] RPR 2022-06-23 11:40:00 Jose, [facility] HEMOGLOBIN A1C 2022-06-23 11:40:00 Jose, [facility] TSH/FREE T4 IF INDICATED 2022-06-23 11:40:00 [facility] METHYLMALONIC ACID 2022-06-23 11:40:00 [facility] BASIC METABOLIC PANEL 2022-06-23 03:53:00 Kirsten Alexis [facility] LIPID PANEL 2022-06-23 03:53:[address] [facility] MR BRAIN WITH & WITHOUT IV 2022-06-22 20:25:00 Kirsten Alexis yasmeen pitts [facility] CONTRAST [facility] MR CERVICAL SPINE WITH & 2022-06-22 20:25:00 [facility] WITHOUT [facility] CONTRAST Medical Cent er SARS-COV2/RT-PCR ([facility] & 2022-06-22 09:36:[address] [facility] REF LABS) [facility] BASIC METABOLIC PANEL 2022-06-22 05:55:00 Kirsten Alexis [facility] BASIC METABOLIC PANEL 2022-06-21 01:36:00 Kirsten Alexis [facility] VITAMIN B12 2022-06-19 16:59:00 DurkalNileshal Prachelsea [facility] XR ANKLE 3 VIEWS RIGHT 2022-06-19 14:20:[address] [facility] BASIC METABOLIC PANEL 2022-06-19 04:50:[address] [facility] CBC W/PLT COUNT & AUTO 2022-06-19 04:50:00 Pietro [facility] PROTHROMBIN TIME/INR 2022-06-19 04:50:[address] [facility] MAGNESIUM 2022-06-19 04:50:00 Pietro [facility] URIC ACID 2022-06-19 04:50:00 Aniceto Ta [facility] CBC W/PLT COUNT & AUTO 2022-06-19 04:50:00 Pietro [facility] POCT-GLUCOSE METER 2022-06-09 11:39:00 [facility] POCT-GLUCOSE METER 2022-06-09 07:01:00 Neason, Bryan [facility] BASIC METABOLIC PANEL 2022-06-09 04:08:00 Tyler Hardy [facility] CBC W/PLT COUNT & AUTO 2022-06-09 04:08:00 Tyler Hardy [facility] CBC W/PLT COUNT & AUTO 2022-06-09 04:08:00 Tyler Hardy [facility] POCT-GLUCOSE METER 2022-06-08 20:57:00 Nealissa, Bryan [facility] POCT-GLUCOSE METER 2022-06-08 16:38:00 Nealissa [facility] POCT-GLUCOSE METER 2022-06-08 12:00:00 NeBryan maxwell [facility] POCT-GLUCOSE METER 2022-06-08 08:13:00 NeasonBryan [facility] BASIC METABOLIC PANEL 2022-06-08 04:45:00 Tyler Hardy [facility] CBC W/PLT COUNT & AUTO 2022-06-08 04:45:00 Tyler Hardy [facility] CBC W/PLT COUNT & AUTO 2022-06-08 04:45:00 Tyler Hardy [facility] POCT-GLUCOSE METER 2022-06-07 21:02:00 NeBryan maxwell [facility] POCT-GLUCOSE METER 2022-06-07 17:14:00 Neason, Bryan [facility] POCT-GLUCOSE METER 2022-06-07 11:05:00 Neason, [facility] POCT-GLUCOSE METER 2022-06-07 07:28:00 Neason, [facility] BASIC METABOLIC PANEL 2022-06-07 03:39:00 Antony, Scott Kamel [facility] CBC W/PLT COUNT & AUTO 2022-06-07 03:39:00 Tyler Hardy [facility] CBC W/PLT COUNT & AUTO 2022-06-07 03:39:00 Tyler Hardy [facility] POCT-GLUCOSE METER 2022-06-06 20:43:[address] [facility] POCT-GLUCOSE METER 2022-06-06 16:56:[address] [facility] POCT-GLUCOSE METER 2022-06-06 11:22:[address] [facility] SARS-COV2/RT-PCR ([facility] & 2022-06-06 08:18:00 Tyler Hardy [facility] POCT-GLUCOSE METER 2022-06-06 07:22:[address] [facility] BASIC METABOLIC PANEL 2022-06-06 04:38:00 Tyler Hardy [facility] CBC W/PLT COUNT & AUTO 2022-06-06 04:38:00 Tyler Hardy [facility] CBC W/PLT COUNT & AUTO 2022-06-06 04:38:00 Tyler Hardy [facility] POCT-GLUCOSE METER 2022-06-05 20:49:[address] [facility] POCT-GLUCOSE METER 2022-06-05 11:53:[address] [facility] POCT-GLUCOSE METER 2022-06-05 06:46:[address] [facility] BASIC METABOLIC PANEL 2022-06-05 04:25:00 Tyler Hardy [facility] CBC W/PLT COUNT & AUTO 2022-06-05 04:25:00 Tyler Hardy [facility] CBC W/PLT COUNT & AUTO 2022-06-05 04:25:00 Tyler Hardy [facility] POCT-GLUCOSE METER 2022-06-04 20:47:00 Bryan Esquivel [facility] POCT-GLUCOSE METER 2022-06-04 16:17:00 NeBryan maxwell [facility] POCT-GLUCOSE METER 2022-06-04 11:29:00 Bryan Esquivel [facility] POCT-GLUCOSE METER 2022-06-04 06:44:00 SierraBryan [facility] BASIC METABOLIC PANEL 2022-06-04 05:02:00 Tyler Hardy [facility] CBC W/PLT COUNT & AUTO 2022-06-04 05:02:00 Tyler Hardy [facility] CBC W/PLT COUNT & AUTO 2022-06-04 05:02:00 Tyler [facility] CHEST WITH IV CONTRAST 2022-06-04 02:03:00 Tyler Hardy [facility] CT ABDOMEN/PELVIS WITH IV 2022-06-04 02:03:00 Tyler Hardy [facility] POCT-GLUCOSE METER 2022-06-03 21:08:00 SierraBryan [facility] POCT-GLUCOSE METER 2022-06-03 17:05:00 Nancyalissa Bryan [facility] POCT-GLUCOSE METER 2022-06-03 11:06:00 NancyBryan maxwell [facility] POCT-GLUCOSE METER 2022-06-03 07:26:00 NeBryan maxwell [facility] BASIC METABOLIC PANEL 2022-06-03 04:28:00 Tyler Hardy [facility] CBC W/PLT COUNT & AUTO 2022-06-03 04:28:00 Tyler Hardy [facility] CBC W/PLT COUNT & AUTO 2022-06-03 04:28:00 Tyler Hardy [facility] POCT-GLUCOSE METER 2022-06-02 20:51:00 Bryan Esquivel [facility] POCT-GLUCOSE METER 2022-06-02 14:41:00 Bryan Esquivel [facility] POCT-ACT 2022-06-02 13:49:00 Sierra [facility] CATHETERIZATION, HEART, 2022-06-02 12:49:00 Billie Vyas [facility] LEFT, WITH PERCUTANEOUS [facility] CORONARY INTERVENTION POCT-GLUCOSE METER 2022-06-02 11:08:00 Sierra Bryan [facility] POCT-GLUCOSE METER 2022-06-02 07:54:[address] [facility] CBC W/PLT COUNT & AUTO 2022-06-02 04:18:00 Tyler Hardy [facility] CBC W/PLT COUNT & AUTO 2022-06-02 04:18:00 Syeda Sanchez [facility] BASIC METABOLIC PANEL 2022-06-02 04:17:00 Tyler Hardy [facility] POCT-GLUCOSE METER 2022-06-01 20:56:00 Nealissa Bryan [facility] POCT-GLUCOSE METER 2022-06-01 16:29:00 Nealissa Rbyan [facility] POCT-GLUCOSE METER 2022-06-01 11:50:[address] [facility] POCT-GLUCOSE METER 2022-06-01 07:21:00 Syeda Sanchez [facility] MAGNESIUM 2022-06-01 04:44:[address] [facility] PHOSPHORUS 2022-06-01 04:44:00 [facility] 2022-06-01 04:44:00 Tyler Hardy [facility] CBC W/PLT COUNT & AUTO 2022-06-01 04:44:00 Tyler Hardy [facility] CBC W/PLT COUNT & AUTO 2022-06-01 04:44:00 Daniel, Syeda [facility] POCT-GLUCOSE METER 2022-05-31 21:37:00 Daniel [facility] 2D ECHO W/ DOPPLER 2022-05-31 17:38:13 Tyler Hardy [facility] (CW/PW/COLOR) [facility] POCT-GLUCOSE METER 2022-05-31 17:06:00 Daniel [facility] POCT-GLUCOSE METER 2022-05-31 11:44:00 Dainel [facility] POCT-GLUCOSE METER 2022-05-31 06:53:00 Merissa Ambrocio [facility] XR ABDOMEN/KUB 1 VIEW 2022-05-31 06:47:00 Amalia Deleon [facility] PORTABLE [facility] XR CHEST 1 VIEW PORTABLE / 2022-05-31 06:44:00 Amalia Deleon [facility] BEDSIDE [facility] HIGH SENSITIVITY TROPONIN I 2022-05-31 06:35:00 Eli Deleon [facility] ECG 12-LEAD 2022-05-31 06:20:00 Amalia Deleon [facility] ECG 12-LEAD 2022-05-31 06:20:00 Unknown, Hl7 Doctor [facility] MAGNESIUM 2022-05-31 04:37:00 Ramirez Jolsyn [facility] PHOSPHORUS 2022-05-31 04:37:[address] [facility] BASIC METABOLIC PANEL 2022-05-31 04:37:00 Tyler Hardy CH I [facility] CBC W/PLT COUNT & AUTO 2022-05-31 04:37:00 Tyler Hardy HI [facility] CBC W/PLT COUNT & AUTO 2022-05-31 04:37:00 Syeda Sanchez [facility] POCT-GLUCOSE METER 2022-05-30 21:10:00 Merissa Ambrocio [facility] CT ABDOMEN/PELVIS WITHOUT 2022-05-30 18:15:00 Tyler Hardy [facility] IV CONTRAST [facility] POCT-GLUCOSE METER 2022-05-30 16:54:00 Merissa Ambrocio [facility] SARS-COV2/RT-PCR ([facility] & 2022-05-30 16:21:00 Tyler Hardy [facility] REF LABS) Medical Center NM MYOCARDIAL PERFUSION 2022-05-30 14:14:00 Syeda Sanchez Juan [facility] PET/CT (REST & STRESS) Medical C enter ECG 12-LEAD 2022-05-30 13:25:46 Unknown, Hl7 Doctor [facility] ECG 12-LEAD 2022-05-30 13:25:46 Unknown, Hl7 [facility] VITAMIN B12 BINDING 2022-05-30 09:39:00 [facility] VITAMIN B1 2022-05-30 09:39:00 [place] [facility] POCT-GLUCOSE METER 2022-05-30 07:54:00 Merissa Ambrocio [facility] MAGNESIUM 2022-05-30 04:29:00 [facility] 2022-05-30 04:29:00 [facility] BASIC METABOLIC PANEL 2022-05-30 04:29:00 Tyler Hardy [facility] CBC W/PLT COUNT & AUTO 2022-05-30 04:29:00 Tyler Hardy [facility] CBC W/PLT COUNT & AUTO 2022-05-30 04:29:00 Syeda Sanchez [facility] POCT-GLUCOSE METER 2022-05-29 21:05:00 Merissa Ambrocio [facility] CAROTID DOPPLER BILATERAL 2022-05-29 20:25:00 Tyler Hardy [facility] POCT-GLUCOSE METER 2022-05-29 16:43:00 Cristóbal Merissa [facility] CARCINOEMBRYONIC ANTIGEN 2022-05-29 16:18:00 Tyler Hardy [facility] (CEA) [facility] CARBOHYDRATE ANTIGEN 19-9 2022-05-29 16:18:00 Tyler Hardy [facility] (CA 19-9) [facility] ALPHA FETOPROTEIN (AFP), 2022-05-29 16:18:00 Tyler Hardy [facility] TUMOR MARKER [facility] POCT-GLUCOSE METER 2022-05-29 11:14:00 Merissa Ambrocio [facility] POCT-GLUCOSE METER 2022-05-29 07:24:00 Merissa Ambrocio [facility] BASIC METABOLIC PANEL 2022-05-29 04:34:[address] [facility] PROTHROMBIN TIME/INR 2022-05-29 04:34:[address] [facility] MAGNESIUM 2022-05-29 04:34:[address] [facility] PHOSPHORUS 2022-05-29 04:34:[address] [facility] CBC W/PLT COUNT & AUTO 2022-05-29 04:34:00 Joslyn Guzmán CH I [facility] CBC W/PLT COUNT & AUTO 2022-05-29 04:34:00 Joslyn Guzmán I [facility] VASCULAR DIAGRAM -SCAN 2022-05-29 00:00:00 Provider, Amaury [facility] CARDIAC CATH REPORT - SCAN 2022-05-29 00:00:00 Provider, Amaury [facility] Plan of Care Planned Activity Planned Date Details Comments Source Future Scheduled 2025-06-23 Lipid panel (procedure[facility]00 [code = 39144226] Medical Ce nter Future Scheduled 2023-07-[address] [facility]:00 Counseling and Medical [...] [facility] 2) [code = SHINGLES [facility] VACCINES (1 of 2)] Future Scheduled 2010 SHINGLES VACCINES ([address] [facility] 00:00:00 2) [code = SHINGLES [facility] VACCINES (1 of 2)] Future Scheduled 1995 Lipid panel (procedure) [facility] 00:00:00 [code = 58151070] Medical Ce nter Future Scheduled 1979 DTAP/TDAP/TD [...] [facility] [code = CT Colonography [facility] (combo)] Future Scheduled 1960 Screening for malignant [facility] 00:00:00 neoplasm of colon Medical Ce nter (procedure) [code = 653569482] Future Scheduled 1960 Screening for malignant [facility] 00:00:00 neoplasm of colon Medical Ce nter (procedure) [code = 720187880] Future Scheduled 1960 Screening for malignant [facility] 00:00:00 neoplasm of colon Medical Ce nter (procedure) [code = 138271060] Future Scheduled 1960 Screening for malignant [facility] 00:00:00 neoplasm of colon Medical Ce nter (procedure) [code = 636880413] Future Scheduled 1960 Sigmoidoscopy [code = [facility]oscopy] Medical Cente r Future Scheduled 1960 CT Colonography (combo) [facility] 00:00:00 [code = CT Colonography Medi [facility] (combo)] Future Scheduled 1960 Screening for malignant [facility] 00:00:00 neoplasm of colon Medical Ce nter (procedure) [code = 246729241] Future Scheduled 1960 Screening for malignant [facility] 00:00:00 neoplasm of colon Medical Ce nter (procedure) [code = 458747526] Future Scheduled 1960 Screening for malignant [facility] 00:00:00 neoplasm of colon Medical Ce nter (procedure) [code = 849537485] Future Scheduled 1960 Screening for malignant [facility] 00:00:00 neoplasm of colon Medical Ce nter (procedure) [code = 965985900] Future Scheduled 1960 Sigmoidoscopy [facility]code = [facility]oscopy] Medical Cente r Encounters Start End Encounter Admission Attending Care Care Encounter Source Date/Time Date/Time Type Type Clinicians Facility Department ID 2022-06-18 2022-07-24 Inpatient UR ANICETO TA [facility] Neurology [id number] SLE 23:46:00 19:13:00 2022-06-18 2022-07-24 Hospital UR Syeda Sanchez Juan [facility] [id number] 23:46[facility]00 19:13:00 Encounter Aniceto Ta, Alexis Bateman, Teja Guo, Arin Wynne 2022-06-19 2022-06-19 Travel [facility] [id number] [facility]00 [facility] 2022-05-29 2022-06-09 Inpatient ER NANCYSANIYA MAXWELL General Med [id number] SLE 01:15:00 16:04:00 [facility] 2022-05-29 2022-06-09 Hospital ER Merissa Ambrocio [facility] [id number] [facility] 01:15:00 16:04:00 Encounter DanielSyeda melendez tulio [facility] 2022-06-02 2022-06-02 Surgery Sen, [facility] [id number] 12:15:00 14:52:00 [facility] 2022-05-30 2022-05-30 Orders [facility] [id number] 00:00:00 00:00:[address] [facility] 2022-05-29 2022-05-29 Travel [facility] [id number] [facility] 00[facility]00 [facility] Results Test Description Test Time Test Comments [...] s not applicable for dialysis ghada ma Poultry Husbandman ID - [id number] 12:41:59 Test Item Value Reference Range Interpretation Comments SODIUM (BEAKER) (test code = 381) 134 meq/L 136-145 L POTASSIUM (BEAKER) (test code = 4.3 meq/L 3.5-5.1 379) CHLORIDE (BEAKER) (test code = 382) 98 meq/L 98-107 CO2 (BEAKER) (test code = 355) 28 meq/L 22-29 Poultry Husbandman ID - PAVAN BPOC-Glucose [id number] 11:45:50 Test Item Value Reference Range Interpretation Comments POC-Glucose Meter (test 102 mg/dL 70-110 : TE STED AT [facility] code = 1538) [address] [place], [address]: Poultry Husbandman/Techni ilir ID = [id number] for TSERING FARR Lab Interpretation (test Normal code = 35411-9) [facility] [id number] 11:45:50 Test Item Value Reference Range Interpretation Comments POC-GLUCOSE METER 102 mg/dL 70-110 : TESTED A T [facility] 6720 (BEAKER) (test code = [facility] Abelino [facility], 1538) 41847: Poultry Husbandman/Techni ilir ID = [id number] for IRINA CHRISTENSEN POCT-GLUCOSE [id number] 08:25:45 Test Item Value Reference Range Interpretation Comments POC-GLUCOSE METER 108 mg/dL 70-110 : TESTED A T [facility] 6720 (BEAKER) (test code = [facility], 1538) 37544: Poultry Husbandman/Techni ilir ID = [id number] for Katie Cruz POCT-GLUCOSE [id number] 17:31:55 Test Item Value Reference Range Interpretation Comments POC-GLUCOSE METER 108 mg/dL 70-110 : TESTED A T [facility] 6720 (BEAKER) (test code = [facility], 1538) 14335: Poultry Husbandman/Techni ilir ID = [id number] for IRINA CHRISTENSEN POCT-GLUCOSE [id number] 12:55:04 Test Item Value Reference Range Interpretation Comments POC-GLUCOSE METER 111 mg/dL 70-110 H : TESTED A T [facility] 6720 (BEAKER) (test code = [facility], 1538) 94442: Poultry Husbandman/Techni ilir ID = [id number] for Dat Silva POCT-GLUCOSE [id number] 09:03:52 Test Item Value Reference Range Interpretation Comments POC-GLUCOSE METER 128 mg/dL 70-110 H : TESTED A T [facility] 6720 (BEAKER) (test code = [facility], 1538) 29275: Poultry Husbandman/Techni ilir ID = [id number] for IRINA CHRISTENSEN SARS-CoV2/RT-PCR (Asymptomatic ONLY)2022-07-20 07:10:51 Test Item Value Reference Interpretation Comments Range SARS-COV2/RT-PCR Negative Negative The SARS-Co V-2 (test code = target nucleic 73458-7) acids are not detected in thi s [...] revoked sooner. Fact Sheet for Healthcare Providers: https://www.KRAFTWERK/Documents/Xp ert%20Xpress%20SAR S%20CoV-2/Fact%20S heets/302-3802%20S ARS-COV-2%20HEALTH CARE%20PROVIDERS%2 0FACT%20SHEET.pdf Fact Sheet for Healthcare Patients: https://www.KRAFTWERK/Documents/Xp ert%20Xpress%20SAR S%20CoV-2/Fact%20S heets/302-3801%20S ARS-COV-2%20PATIEN T%20FACT%20SHEET.p df Lab Interpretation Normal (test code = 02712-8) [facility] REF [facility])2022-07-20 07:10:51 Test Item Value Reference Range Interpretation Comments SARS-COV2/RT-PCR Negative Negative The SARS-Co V-2 target (test code = nucleic acids a re not 9647672) detected in thi s specimen. Negative result [...] revoked sooner. Fact Sheet for Healthcare Providers: https://www.Community Cash m/Documents/Xpert%20Xpress%20SARS%20CoV-2/Fact%20Sheets/302-3802%20UKPW-KLP-4%20 HEALTHCARE%20PROVIDERS%20FACT%20SHEET.pdf Fact Sheet for Healthcare Patients: https://www.Nomi/Documents/Xpert%20Xp ress%20SARS%20CoV-2/Fact%20Sheets/302-3801%71SHNV-KLX-5%20PATIENT%20FACT%20SHEET .pdfPOCT-GLUCOSE [id number] 22:07:58 Test Item Value Reference Range Interpretation Comments POC-GLUCOSE METER 111 mg/dL 70-110 H : TESTED A T [facility] 6720 ([employer]) (test code = [employer] Abel[facility], 1538) 26215: Poultry Husbandman/Techni ilir ID = [id number] for Pravin Santos POCT-GLUCOSE [id number] 18:42:03 Test Item Value Reference Range Interpretation Comments POC-GLUCOSE METER 129 mg/dL 70-110 H : TESTED A T [facility] 6720 ([employer]) (test code = [facility] [employer] [facility], 1538) 50610: Poultry Husbandman/Techni ilir ID = [id number] for Mattie DELGADO POCT-GLUCOSE [id number] 08:03:40 Test Item Value Reference Range Interpretation Comments POC-GLUCOSE METER 112 mg/dL 70-110 H : TESTED A T [facility] 6720 (BEAKER) (test code = [facility] Abelino [facility], 1538) 36463: Poultry Husbandman/Techni ilir ID = [id number] for Mattie DELGADO BASIC METABOLIC [id number] 06:25:19 Test Item Value Reference Range Interpretation [...] not appl icable for dialysis patien ts Poultry Husbandman ID - MARCOPOCT-GLUCOSE [id number] 22:05:09 Test Item Value Reference Range Interpretation Comments POC-GLUCOSE METER 111 mg/dL 70-110 H : TESTED A T [facility] 6720 (BEAKER) (test code = [facility] Abelino [facility], 1538) 83441: Poultry Husbandman/Techni ilir ID = [id number] for Pravin Santos POCT-GLUCOSE [id number] 21:56:03 Test Item Value Reference Range Interpretation Comments POC-GLUCOSE METER 113 mg/dL 70-110 H : TESTED A T [facility] 6720 (BEAKER) (test code = [facility], 1538) 71638: Poultry Husbandman/Techni ilir ID = [id number] for [place]IA POCT-GLUCOSE [id number] 13:07:32 Test Item Value Reference Range Interpretation Comments POC-GLUCOSE METER 121 mg/dL 70-110 H : TESTED A T [facility] 6720 (BEAKER) (test code = [facility], 1538) 22220: Poultry Husbandman/Techni ilir ID = [id number] for [place] POCT-GLUCOSE [id number] 08:10:20 Test Item Value Reference Range Interpretation Comments POC-GLUCOSE METER 138 mg/dL 70-110 H : TESTED A T [facility] 67[facility] (BEAKER) (test code = [facility], 1538) 23054: Poultry Husbandman/Techni ilir ID = [id number] for [place] BASIC METABOLIC [id number] 06:36:32 Test Item Value Reference Range Interpretation [...] not appl icable for dialysis patien ts Poultry Husbandman ID - MARCOCBC W/PLT COUNT & AUTO [id number] 06:11:06 Test Item Value Reference Range Interpretation [...] PERCENT (BEAKER) (test code = 2801) POCT-GLUCOSE [id number] 21:51:47 Test Item Value Reference Range Interpretation Comments POC-GLUCOSE METER 107 mg/dL 70-110 : TESTED A T [facility] 6720 (BEAKER) (test code = [facility], 153) 09792: Poultry Husbandman/Techni ilir ID = [id number] for DIANA NAWAF TAYA POCT-GLUCOSE [id number] 17:47:35 Test Item Value Reference Range Interpretation Comments POC-GLUCOSE METER 128 mg/dL 70-110 H : TESTED A T [facility] 6720 (BEAKER) (test code = [facility], 153) 45537: Poultry Husbandman/Techni ilir ID = [id number] for Um eh, [place] POCT-GLUCOSE [id number] 12:56:02 Test Item Value Reference Range Interpretation Comments POC-GLUCOSE METER 114 mg/dL 70-110 H : TESTED A T [facility] 67[facility] (BEAKER) (test code = [facility], 153) 38145: Poultry Husbandman/Techni ilir ID = [id number] for Um eh, [place] POCT-GLUCOSE [id number] 09:56:26 Test Item Value Reference Range Interpretation Comments POC-GLUCOSE METER 93 mg/dL 70-110 : TESTED A T [facility] 6720 (BEAKER) (test code = [facility], 153) 54497: Poultry Husbandman/Techni ilir ID = [id number] for Umeh , [place] BASIC METABOLIC [id number] 06:52:25 Test Item Value Reference Range Interpretation [...] mg/dL 8.4-10.2 (test code = 697) EGFR ([facility]) 101 Interpretatio n of eGFR (test [...] not appl icable for dialysis patien ts Poultry Husbandman ID - ADMINPOCT-GLUCOSE [id number] 21:31:13 Test Item Value Reference Range Interpretation Comments POC-GLUCOSE METER 123 mg/dL 70-110 H : Notified RN/MD: ([facility]) (test code = TESTED AT [place] [address] 1538) [address] [facility], [address]: Poultry Husbandman/Techni ilir ID = [id number] for LATHBRIDGE, JILLIAN ICE POCT-GLUCOSE [id number] 18:00:17 Test Item Value Reference Range Interpretation Comments POC-GLUCOSE METER 124 mg/dL 70-110 H : TESTED A T [facility] 67 ([facility]) (test code = [address] [address] [facility], 1538) 89487: Poultry Husbandman/Techni ilir ID = [id number] for AK INSONU, AZIZA POCT-GLUCOSE [id number] 13:13:09 Test Item Value Reference Range Interpretation Comments POC-GLUCOSE METER 136 mg/dL 70-110 H : TESTED A T [facility] 6720 (BEAKER) (test code = [place], 1538) 44[address]: Poultry Husbandman/Techni ilir ID = [id number] for AZIZA US POCT-GLUCOSE [id number] 08:37:32 Test Item Value Reference Range Interpretation Comments POC-GLUCOSE METER 108 mg/dL 70-110 : TESTED A T [facility] 6720 (BEAKER) (test code = [place] [address] [place], 1538) 82[address]: Poultry Husbandman/Techni ilir ID = [id number] for AZIZA US BASIC METABOLIC [id number] 04:49:51 Test Item Value Reference Range Interpretation [...] not appl icable for dialysis patien ts Poultry Husbandman ID - MARCOCBC W/PLT COUNT & AUTO [id number] 04:29:03 Test Item Value Reference Range Interpretation [...] PERCENT (BEAKER) (test code = 2801) POCT-GLUCOSE [id number] 21:55:25 Test Item Value Reference Range Interpretation Comments POC-GLUCOSE METER 132 mg/dL 70-110 H : TESTED A T [facility] 6720 (BEAKER) (test code = [facility] [address], 1538) 77534: Poultry Husbandman/Techni ilir ID = [id number] for Pravin Santos POCT-GLUCOSE [id number] 16:54:38 Test Item Value Reference Range Interpretation Comments POC-GLUCOSE METER 172 mg/dL 70-110 H : TESTED A T [facility] 6720 (BEAKER) (test code [facility], = 1538) 16890: Poultry Husbandman/Techni ilir ID = [id number] for Anthony Boyer CORTISOL,60 [id number] 13:32:09 Test Item Value Reference Range Interpretation [...] a study by Chris et al (DRISS 2000,283(8):6642-18), the ACTH Stimulation Test provides important prognostic [...] Pharmacy Policy and Procedure Section on The Source.Poultry Husbandman ID - MANPREET GPOCT-GLUCOSE METER 2022-07-15 13:23:53 Test Item Value Reference Range Interpretation Comments POC-GLUCOSE METER 96 mg/dL 70-110 : TESTED A T [facility] 6720 ([employer]) (test code = [place], 1538) 94774: Poultry Husbandman/Techni ilir ID = [id number] for Anthony Boyer CORTISOL,30 [id number] 12:48:04 Test Item Value Reference Range Interpretation [...] Pharmacy Policy and Procedure Section on The Source.Poultry Husbandman ID - MANPREET GProtein Electrophoresis, [id number] 12:05:39 Test Item Value Reference Range Interpretation Comments Pre-Albumin (CSF) TNP Test Not (test code = 80093-1) Perfor med. Albumin, CSF (test TNP Test Not code = 1746-7) Performed. Cafkh-3-Pzhbmout CSF TNP Test No t (test code = 06337-7) Perfor med. Hdrrp-3-Wulhxbac CSF TNP Test No t (test code = 4125917) Perfor med. Beta Globulin (CSF) TNP Test Not (test code = 35640-4) Perfor med. Gamma Globulin (CSF) TNP Test No t (test code = 77040-4) Perfor med. Interpretation (test TNP Test No t code = 4445700) Performed. Specimen quantity not sufficient afte r other testscompleted. Test not performed. JUANA (test code = JUANA) Performing Lab 15 [facility] [address] [facility] [address] [place], [place] Nathaniel Ceja MD, PhD [facility]ORT[facility],[id number] 11:03:25 Test Item Value Reference Range Interpretation [...] Pharmacy Policy and Procedure Section on The Source.Poultry Husbandman ID - MANPREET GPOCT-GLUCOSE METER 2022-07-15 09:29:24 Test Item Value Reference Range Interpretation Comments POC-GLUCOSE METER 121 mg/dL 70-110 H : TESTED A T [facility] (BEAKER) (test code [facility], = 1538) 94479: Poultry Husbandman/Techni ilir ID = [id number] for Anthony Boyer BASIC METABOLIC [id number] 05:53:47 Test Item Value Reference Range Interpretation [...] not appl icable for dialysis patien ts Poultry Husbandman ID - MANPREET [id number] 05:44:11 Test Item Value Reference Range Interpretation [...] of thrombosis is within 95-100% range.POCT- GLUCOSE [id number] 21:54:00 Test Item Value Reference Range Interpretation Comments POC-GLUCOSE METER 112 mg/dL 70-110 H : TESTED A T [facility] 6720 (BEAKER) (test code = [facility], 1538) [id number]: Poultry Husbandman/Techni ilir ID = [id number] for Pravin Santos POCT-GLUCOSE [id number] 17:50:55 Test Item Value Reference Range Interpretation Comments POC-GLUCOSE METER 112 mg/dL 70-110 H : TESTED A T [facility] 6720 (BEAKER) (test code = [facility], 1538) 96786: Poultry Husbandman/Techni ilir ID = [id number] for CHERYL THOMPSON POCT-GLUCOSE [id number] 13:03:01 Test Item Value Reference Range Interpretation Comments POC-GLUCOSE METER 102 mg/dL 70-110 : TESTED A T [facility] 6720 (BEAKER) (test code = [facility], 1538) 29991: Poultry Husbandman/Techni ilir ID = [id number] for Katie Cruz RAD, CHEST, 1 VIEW, NON [id number] 11:54:00Reason for exam:- >hypoxia/SOBShould this be performed at the bedside?->Yes [facility] 1960 Sex: MFINAL REPORT INDICATION: hypoxia/SOB COMPARISON: None TECHNIQUE: Single frontal view of the chest. FINDINGS: Lungs and pleura: Clear lungs. No effusion.Heart and mediastinum: Normal heart size. Unremarkable mediastinal contours.Osseous structures: No acute abnormality.Other: None. IMPRESSION: No acute intrathoracic abnormality. Signed: Tatyana Bang Verified Date/Time: 07/14/2022 11:54:52 Reading Location: [address] Reading Room POCT-GLUCOSE [id number] 10:02:04 Test Item Value Reference Range Interpretation Comments POC-GLUCOSE METER 99 mg/dL 70-110 : TESTED A T [facility] 6720 (BEAKER) (test code = [facility], 1538) 17035: Poultry Husbandman/Techni ilir ID = [id number] for Jesika Trujillo POCT-GLUCOSE [id number] 08:32:19 Test Item Value Reference Range Interpretation Comments POC-GLUCOSE METER 101 mg/dL 70-110 : TESTED A T [facility] 6720 (BEAKER) (test code = [facility], 1538) 23556: Poultry Husbandman/Techni ilir ID = [id number] for Yanna torrezJameelcristianu HEPATIC FUNCTION [id number] 06:23:29 Test Item Value Reference Range Interpretation [...] code = 61 U/L 6-55 H 347) Poultry Husbandman ID - MARCOBASIC METABOLIC [id number] 06:23:28 Test Item Value Reference Range Interpretation [...] not appl icable for dialysis patien ts Poultry Husbandman ID - MARCOCBC W/PLT COUNT & AUTO [id number] 06:04:21 Test Item Value Reference Range Interpretation [...] PERCENT (BEAKER) (test code = 2801) POCT-GLUCOSE [id number] 22:04:25 Test Item Value Reference Range Interpretation Comments POC-GLUCOSE METER 109 mg/dL 70-110 : TESTED A T [facility] 6720 (BEAKER) (test code = [facility], 1538) 88754: Poultry Husbandman/Techni ilir ID = [id number] for Pravin Santos BASIC METABOLIC [id number] 17:53:02 Test Item Value Reference Range Interpretation [...] not appl icable for dialysis patien ts Poultry Husbandman ID - BSSARS-COV2/RT-PCR ([facility])2022-07-13 17:37:27 Test Item Value Reference Range Interpretation Comments SARS-COV2/RT-PCR Negative Negative The SARS-Co V-2 target (test code = nucleic acids a re not 1207535) detected in thi s specimen. Negative result [...] individuals suspected of CO VID-19 [facility]. This test has been [...] revoked sooner. Fact Sheet for Healthcare Providers: https://www.[employer] m/Documents/Xpert%20Xpress%20SARS%20CoV-2/Fact%20Sheets/302-3802%17JYJK-PHO-5%20 HEALTHCARE%20PROVIDERS%20FACT%20SHEET.pdf Fact Sheet for Healthcare Patients: https://www.[employer]omi/Documents/Xpert%20Xp ress%20SARS%20CoV-2/Fact%20Sheets/302-3801%30KQHV-ZLP-8%20PATIENT%20FACT%20SHEET .pdfPOCT-GLUCOSE [id number] 17:30:14 Test Item Value Reference Range Interpretation Comments POC-GLUCOSE METER 96 mg/dL 70-110 : TESTED A T [facility] 6720 ([employer]) (test code = [facility] [place], 1538) 22852: Poultry Husbandman/Techni ilir ID = [id number] for IRINA MENDOZA POCT-GLUCOSE [id number] 12:21:32 Test Item Value Reference Range Interpretation Comments POC-GLUCOSE METER 114 mg/dL 70-110 H : TESTED A T [facility] 6720 (BEAKER) (test code = [facility] [place], 1538) 35285: Poultry Husbandman/Techni ilir ID = [id number] for IRINA CHRISTENSEN POCT-GLUCOSE [id number] 08:36:47 Test Item Value Reference Range Interpretation Comments POC-GLUCOSE METER 116 mg/dL 70-110 H : TESTED A T [facility] 6720 (BEAKER) (test code = [facility] [place], 1538) 09939: Poultry Husbandman/Techni ilir ID = [id number] for Um ehJameelumbu BASIC METABOLIC [id number] 04:57:33 Test Item Value Reference Range Interpretation [...] not appl icable for dialysis patien ts Poultry Husbandman ID - PIAYA LPOCT-GLUCOSE [id number] 21:25:05 Test Item Value Reference Range Interpretation Comments POC-GLUCOSE METER 113 mg/dL 70-110 H : TESTED A T [facility] 6720 (BEAKER) (test code [facility], = 1538) 23922: Poultry Husbandman/Techni ilir ID = [id number] for Kike Ramos POCT-GLUCOSE [id number] 18:06:10 Test Item Value Reference Range Interpretation Comments POC-GLUCOSE METER 117 mg/dL 70-110 H : TESTED A T [facility] 6720 (BEAKER) (test code = [facility], 1538) 00186: Poultry Husbandman/Techni ilir ID = [id number] for An sonia, Naila POCT-GLUCOSE [id number] 12:34:06 Test Item Value Reference Range Interpretation Comments POC-GLUCOSE METER 114 mg/dL 70-110 H : TESTED A T [facility] 6720 (BEAKER) (test code = [facility], 1538) 31217: Poultry Husbandman/Techni ilir ID = [id number] for An sonia, Naila POCT-GLUCOSE [id number] 07:54:16 Test Item Value Reference Range Interpretation Comments POC-GLUCOSE METER 104 mg/dL 70-110 : TESTED A T [facility] 6720 (BEAKER) (test code = [facility], 1538) 08669: Poultry Husbandman/Techni ilir ID = [id number] for An sonia, Naila BASIC METABOLIC [id number] 06:47:01 Test Item Value Reference Range Interpretation [...] not appl icable for dialysis patien ts Poultry Husbandman ID - PIAYA LCBC W/PLT COUNT & AUTO [id number] 05:35:20 Test Item Value Reference Range Interpretation [...] PERCENT (BEAKER) (test code = 2801) POCT-GLUCOSE [id number] 21:32:03 Test Item Value Reference Range Interpretation Comments POC-GLUCOSE METER 120 mg/dL 70-110 H : TESTED A T [facility] 6720 (BEAKER) (test code [facility], = 1538) 43606: Poultry Husbandman/Techni ilir ID = [id number] for Kike Ramos POCT-GLUCOSE [id number] 17:52:43 Test Item Value Reference Range Interpretation Comments POC-GLUCOSE METER 112 mg/dL 70-110 H : TESTED A T [facility] 6720 (BEAKER) (test code = [facility], 153) 30954: Poultry Husbandman/Techni ilir ID = [id number] for Um eh, Akumbu POCT-GLUCOSE [id number] 12:38:06 Test Item Value Reference Range Interpretation Comments POC-GLUCOSE METER 106 mg/dL 70-110 : TESTED A T [facility] 6720 (BEAKER) (test code = [facility], 153) 14510: Poultry Husbandman/Techni ilir ID = [id number] for Um eh, Akumbu POCT-GLUCOSE [id number] 07:54:24 Test Item Value Reference Range Interpretation Comments POC-GLUCOSE METER 115 mg/dL 70-110 H : TESTED A T [facility] 6720 (BEAKER) (test code = [facility], 1538) 22923: Poultry Husbandman/Techni ilir ID = [id number] for Um eh, Akumbu [id number] 05:46:10 Test Item Value Reference Range Interpretation Comments CORTISOL, TOTAL (BEAKER) (test code 3.7 ug/dL 3.7-19.4 = 2755) Poultry Husbandman ID - MARCOBASIC METABOLIC [id number] 05:28:46 Test Item Value Reference Range Interpretation [...] not appl icable for dialysis patien ts Poultry Husbandman ID - MARCOCBC W/PLT COUNT & AUTO [id number] 05:10:21 Test Item Value Reference Range Interpretation [...] PERCENT (BEAKER) (test code = 2801) POCT-GLUCOSE [id number] 17:59:25 Test Item Value Reference Range Interpretation Comments POC-GLUCOSE METER 113 mg/dL 70-110 H : TESTED A T [facility] 6720 (BEAKER) (test code = [facility] [place], 1538) 69857: Poultry Husbandman/Techni ilir ID = [id number] for Um eh, Akumbu POCT-GLUCOSE [id number] 11:49:37 Test Item Value Reference Range Interpretation Comments POC-GLUCOSE METER 126 mg/dL 70-110 H : TESTED A T [facility] 6720 (BEAKER) (test code = [facility], 1538) 82487: Poultry Husbandman/Techni ilir ID = [id number] for Um eh, Akumbu POCT-GLUCOSE [id number] 07:38:24 Test Item Value Reference Range Interpretation Comments POC-GLUCOSE METER 99 mg/dL 70-110 : TESTED A T [facility] 6720 (BEAKER) (test code = [facility], 1538) 55283: Poultry Husbandman/Techni ilir ID = [id number] for Umeh , Akumbu POCT-GLUCOSE [id number] 07:33:24 Test Item Value Reference Range Interpretation Comments POC-GLUCOSE METER 102 mg/dL 70-110 : TESTED A T [facility] 6720 (BEAKER) (test code = [facility], 1538) 34238: Poultry Husbandman/Techni ilir ID = [id number] for Pravin Santos URIC [id number] 06:53:20 Test Item Value Reference Range Interpretation Comments URIC ACID (BEAKER) 5.3 mg/dL 2.6-7.2 Specimen slightly (test code = 773) hemolyzed Poultry Husbandman ID - MARCOBASIC METABOLIC [id number] 06:31:31 Test Item Value Reference Range Interpretation [...] not appl icable for dialysis patien ts Poultry Husbandman ID - BALAAYA LSodium Na-Stat [id number] 06:15:10 Test Item Value Reference Range Interpretation Comments Sodium (test code = 2951-2) 129 meq/L 136-145 L Lab Interpretation (test code = Abnormal 82576-4) [facility] [id number] 06:15:10 Test Item Value Reference Range Interpretation Comments SODIUM (BEAKER) (test code = 381) 129 meq/L 136-145 L CBC W/PLT COUNT & AUTO [id number] 06:03:22 Test Item Value Reference Range Interpretation [...] PERCENT (BEAKER) (test code = 2801) OSMOLALITY, [id number] 16:34:52 Test Item Value Reference Range Interpretation Comments OSMOLALITY, SERUM (BEAKER) (test 264 mOsm/kg 275-295 L code = 615) Osmolality, [id number] 16:20:15 Test Item Value Reference Range Interpretation Comments Osmolality, Ur (test code 360 See_Comment [ Automated message] = 2695-5) The system [employer]™ generated this result transmitted ref erence range: 50-1,200 mOsm/kg mOsm/kg . The reference range was not used to int erpret this result as normal/abnormal . Lab Interpretation (test Normal code = 78007-3) [facility], [id number] 16:20:15 Test Item Value Reference Range Interpretation Comments OSMOLALITY URINE 360 mOsm/kg See_Comment [Automated message] (BEAKER) (test code = The sy stem which 614) generated this result transmitted ref erence range: 50-1,200 mOsm/kg. The reference range was not used to int erpret this result as normal/abnormal . Sodium, random [id number] 14:08:09 Test Item Value Reference Range Interpretation Comments Sodium Urine (test 46 meq/L code = 2955-3) JUANA (test code = Reference Range: No JUANA) NormalsOperator ID - BS [facility] [id number] 14:08:09 Test Item Value Reference Range Interpretation Comments SODIUM URINE (BEAKER) (test code = 46 meq/L 243) Reference Range: No NormalsOperator ID - BSChloride, random [id number] 14:08:08 Test Item Value Reference Range Interpretation Comments Chloride, Urine (test 32 meq/L 20-330 code = 50862-8) JUANA (test code = JUANA) Reference Range: No NormalsOperator ID - BS Lab Interpretation Normal (test code = 31068-3) [facility], RANDOM [id number] 14:08:08 Test Item Value Reference Range Interpretation Comments CHLORIDE URINE (BEAKER) (test code = 32 meq/L 20330 682) Reference Range: No NormalsOperator ID - BSPOCT-GLUCOSE [id number] 11:28:19 Test Item Value Reference Range Interpretation Comments POC-GLUCOSE METER 128 mg/dL 70-110 H : TESTED A T [facility] 6720 (BEAKER) (test code = [facility] [employer] [facility], 1538) 14115: Poultry Husbandman/Techni ilir ID = [id number] for Um eh, Akumbu POCT-GLUCOSE [id number] 08:00:24 Test Item Value Reference Range Interpretation Comments POC-GLUCOSE METER 116 mg/dL 70-110 H : TESTED A T [facility] 6720 (BEAKER) (test code = [facility] [employer] [facility], 1538) 44973: Poultry Husbandman/Techni ilir ID = [id number] for Um eh, Akumbu POCT-GLUCOSE [id number] 07:46:34 Test Item Value Reference Range Interpretation Comments POC-GLUCOSE METER 101 mg/dL 70-110 : TESTED A T [facility] 6720 (BEAKER) (test code = [facility], 1538) 25539: Poultry Husbandman/Techni ilir ID = [id number] for Bailey torrez BASIC METABOLIC [id number] 05:55:43 Test Item Value Reference Range Interpretation [...] not appl icable for dialysis patien ts Poultry Husbandman ID - MANPREET GCBC W/PLT COUNT & AUTO [id number] 04:46:43 Test Item Value Reference Range Interpretation [...] PERCENT (BEAKER) (test code = 2801) POCT-GLUCOSE [id number] 21:24:45 Test Item Value Reference Range Interpretation Comments POC-GLUCOSE METER 100 mg/dL 70-110 : TESTED A T [facility] 6720 (BEAKER) (test code [facility], = 1538) 63140: Poultry Husbandman/Techni ilir ID = [id number] for Kike Ramos AB SCR,IFA,[id number] 12:39:35 Test Item Value Reference Range Interpretation Comments Tissue Cells, CSF SEE BELOW No fluores cence (test code = observed on [place] 5734359) tissue. PHOENIX-1 (test code NEGATIVE NEGATIVE = 3088) PHOENIX-2 (test code NEGATIVE NEGATIVE = 3089) PHOENIX-3 (test code NEGATIVE NEGATIVE = 3090) PCA1 (YO) AB, NEGATIVE NEGATIVE IFA, CSF (QUEST) (test code = 2724376) PCA2 AB, IFA, CSF NEGATIVE NEGATIVE (QUEST) (test code = 4928548) NUTRITION SERVICES WORKER-TR (DNER) AB, NEGATIVE NEGATIVE IFA,CSF (QUEST) (test code = 1614956) AGNA/SOX1 AB, NEGATIVE NEGATIVE IFA, CSF (QUEST) (test code = 3706331) AMPHIPHYSIN (test NEGATIVE NEGATIVE code = 3093) CRMP5/CV2 AB, NEGATIVE NEGATIVE IFA, CSF (QUEST) (test code = 5578456) MARIAMA-65 (test code NEGATIVE NEGATIVE = 20040319) AQUAPORIN-4 AB, NEGATIVE NEGATIVE If specific neuronal IFA, CSF (QUEST) autoantibod ies were (test code = not detected, i t does 7739247) not exclude anidiopathic or paraneoplastic autoimmune neurological [...] the Qu est autoimmuneneuro logy website(https:/ /testd irectory.Mobile2Me/test/t est-gu ides/CFParaneop lastic Syndromes/paran eoplas tic-neurologica l-synd romes-laborator y-supp sti-ro-ostekraf s) This test was developed and i ts analytical performance characteristics havebeen determ ined by [employer] .It has not been cl eared or approved by FDA. This assay has been validatedpursua nt to the CLIA regula tions and is used for clinical purpos es. JUANA (test code = Performing Lab EZ JUANA) [facility] [address] [place] [address] Mitchell Zhong MD, PhD, [facility]YUniversity [facility] California Davis Medical CenterAQP4 AB (IGG), SCREEN, [id number] 12:39:35 Test Item Value Reference Range Interpretation Comments AQP4 AB (IGG), TNP NEGATIVE Test not perf ormed. SCREEN, CSF Reflex testing not QUEST) (test required since code = established 0476513) criteriawas not met. JUANA (test code Performing Lab EZ = JUANA) [facility] [address] [place] [address] Mitchell Zhong MD, PhD, YOLYUniversity [facility] California Davis Medical CenterAQP4 AB (IGG),TITER,[id number] 12:39:35 Test Item Value Reference Range Interpretation Comments AQP4 AB TNP See_Comment Test not perfor med. (IGG),TITER,CS Reflex testin g not F (QUEST) required since (test code = established 5907620) criteriawas not met. [Automated mess age] The system [employer]™ generated this result transmit chely reference range : <1:10. The refe rence range was not u sed to interpret th is result as normal/abnormal . JUANA (test code Performing Lab EZ = JUANA) [facility] [address] [place] [address] Mitchell Zhong MD, PhD, [facility] Medical CenterANNA-3 Ab, IFA Titer, [id number] 12:39:35 Test Item Value Reference Range Interpretation Comments PHOENIX-3 AB, TNP See_Comment Test not perfor med. TITER, CSF Reflex testing not (QUEST) (test required since code = established 8627852) criteriawas not met. [Automated mess age] The system [employer]™ generated this result transmit chely reference range : <1:10. The refe rence range was not u sed to interpret th is result as normal/abnormal . JUANA (test code Performing Lab EZ = JUANA) [facility] [address] [place] [address] Mitchell Zhong MD, PhD, [facility] Medical CenterPCA-2 Ab, Titer, [id number] 12:39:35 Test Item Value Reference Range Interpretation Comments NUTRITION SERVICES WORKER-2 AB, TNP See_Comment Test not perfor med. TITER, CSF Reflex testing not (QUEST) (test required since code = established 3389514) criteriawas not met. [Automated mess age] The system [facility] h generated this result transmit chely reference range : <1:10. The refe rence range was not u sed to interpret th is result as normal/abnormal . JUANA (test code Performing Lab EZ = JUANA) [facility] [address] [place] [address] Mitchell Zhong MD, PhD, [facility] CenterPARANEOPLASTIC AB, LB, [id number] 12:39:35 Test Item Value Reference Range Interpretation Comments ANNA1 (HU) AB, LB, TNP See_Comment Test not CSF (QUEST) (test performed. Reflex code = 8434326) testing not required since established criteriawas not met. [Automated message] The system which generated this result transmit chely reference range : <11 SI. The reference range was not used to interpret this result as normal/abnormal . ANNA2 (RI) AB, LB, TNP See_Comment Test not CSF (QUEST) (test performed. Reflex code = 7169857) testing not required since established criteriawas not met. [Automated message] The system which generated this result transmit chely reference range : <11 SI. The reference range was not used to interpret this result as normal/abnormal . PCA1 (YO) AB, LB, TNP See_Comment Test not CSF (QUEST) (test performed. Reflex code = 0328844) testing not required since established criteriawas not met. [Automated message] The system which generated this result transmit chely reference range : <11 SI. The reference range was not used to interpret this result as normal/abnormal . NUTRITION SERVICES WORKER-TR (DNER) AB, TNP See_Comment Test not LB, CSF (QUEST) performed. R eflex (test code = testing not 2817342) required since established criteriawas not met. [Automated [...] = Performing Lab EZ JUANA) [facility] [address] [place] [address] Mitchell Zhong MD, PhD, YOLY [facility] HospitalPARANEOPLAS AB,CBA,IFA,[id number] 12:39:35 Test Item Value Reference Range Interpretation [...] (test code Performing Lab EZ = JUANA) [facility] [address] [place] [address] Mitchell Zhong MD, PhD, [facility], [id number] 12:39:35 Test Item Value Reference Range Interpretation Comments NMDAR1,CBA TNP See_Comment Test not perfor med. IFA,TITER,CSF Reflex testing not (QUEST) (test required since code = established ) criteriawas not met. [Automated mess age] The system [employer]™ generated this result transmit chely reference range : <1:10. The refe rence range was not u sed to interpret th is result as normal/abnormal . JUANA (test code Performing Lab EZ = JUANA) [facility] [address] [place] [address] Mitchell Zhong MD, PhD, [facility], [id number] 12:39:35 Test Item Value Reference Range Interpretation Comments AMPAR1,CBA TNP See_Comment Test not perfor med. IFA,TITER,CSF Reflex testing not (QUEST) (test required since code = established ) criteriawas not met. [Automated mess age] The system [employer]™ generated this result transmit chely reference range : <1:10. The refe rence range was not u sed to interpret th is result as normal/abnormal . JUANA (test code Performing Lab EZ = JUANA) [facility] [address] [place] [address] Mitchell Zhong MD, PhD, [facility], [id number] 12:39:35 Test Item Value Reference Range Interpretation Comments AMPAR2,CBA TNP See_Comment Test not perfor med. IFA,TITER,CSF Reflex testing not (QUEST) (test required since code = established 8332589) criteriawas not met. [Automated mess age] The system [employer]™ generated this result transmit chely reference range : <1:10. The refe rence range was not u sed to interpret th is result as normal/abnormal . JUANA (test code Performing Lab EZ = JUANA) [employer] [address] [place] [address] Mitchell Zhong MD, PhD, [facility], [id number] 12:39:35 Test Item Value Reference Range Interpretation Comments GABABR,CBA TNP See_Comment Test not perfor med. IFA,TITER,CSF Reflex testing not (QUEST) (test required since code = established 1755345) criteriawas not met. [Automated mess age] The system [employer]™ generated this result transmit chely reference range : <1:10. The refe rence range was not u sed to interpret th is result as normal/abnormal . JUANA (test code Performing Lab EZ = JUANA) [facility] [address] [place] [address] Mitchell Zhong MD, PhD, [facility], [id number] 12:39:35 Test Item Value Reference Range Interpretation Comments LGI1,CBA TNP See_Comment Test not perfor med. IFA,TITER,CSF Reflex testing not (QUEST) (test required since code = established 2440025) criteriawas not met. [Automated mess age] The system [employer]™ generated this result transmit chely reference range : <1:10. The refe rence range was not u sed to interpret th is result as normal/abnormal . JUANA (test code Performing Lab EZ = JUANA) [employer] [address] [place] [address] Mitchell Zhong MD, PhD, [facility], [id number] 12:39:35 Test Item Value Reference Range Interpretation Comments CASPR2,CBA TNP See_Comment Test not perfor med. IFA,TITER,CSF Reflex testing not (QUEST) (test required since code = established ) criteriawas not met. [Automated mess age] The system [employer] h generated this result transmit chely reference range : <1:10. The refe rence range was not u sed to interpret th is result as normal/abnormal . JUANA (test code Performing Lab EZ = JUANA) [facility] [address] [place] [address] Mitchell Zhong MD, PhD, YOLY [facility] HospitalVGKC Antibody, [id number] 12:39:35 Test Item Value Reference Range Interpretation Comments VGKC AB, CSF TNP See_Comment Test not perfor med. (QUEST) (test Reflex testing not code = required since ) established criteriawas not met. [Automated mess age] The system [employer]™ generated this result transmit chely reference range : <20 pmol/L. The reference range was not used to interpret this result as normal/abnormal . JUANA (test code Performing Lab EZ = JUANA) [facility] [address] [place] [address] Mitchell Zhong MD, PhD, YOLY [facility] HospitalPOCT-GLUCOSE [id number] 11:18:12 Test Item Value Reference Range Interpretation Comments POC-GLUCOSE METER 102 mg/dL 70-110 : TESTED A T [facility] 6720 (BEAKER) (test code = [facility] [employer] [facility], 1538) 75500: Poultry Husbandman/Techni ilir ID = [id number] for eh, Akumbu POCT-GLUCOSE [id number] 07:46:23 Test Item Value Reference Range Interpretation Comments POC-GLUCOSE METER 88 mg/dL 70-110 : TESTED A T [facility] 6720 (BEAKER) (test code = [facility] [employer] [facility], 1538) 18773: Poultry Husbandman/Techni ilir ID = [id number] for Umeh , Akumbu BASIC METABOLIC [id number] 05:39:50 Test Item Value Reference Range Interpretation [...] not appl icable for dialysis patien ts Poultry Husbandman ID - HENRY WCBC W/PLT COUNT & AUTO [id number] 05:12:45 Test Item Value Reference Range Interpretation [...] PERCENT (BEAKER) (test code = 2801) POCT-GLUCOSE [id number] 21:27:14 Test Item Value Reference Range Interpretation Comments POC-GLUCOSE METER 100 mg/dL 70-110 : TESTED A T [facility] 6720 (BEAKER) (test code [facility], = 1538) 20227: Poultry Husbandman/Techni ilir ID = [id number] for Kike Ramos POCT-GLUCOSE [id number] 17:36:17 Test Item Value Reference Range Interpretation Comments POC-GLUCOSE METER 123 mg/dL 70-110 H : TESTED A T [facility] 6720 (BEAKER) (test code = [facility], 1538) 08033: Poultry Husbandman/Techni ilir ID = [id number] for Um eh, Akumbu VDRL, [id number] 15:16:52 Test Item Value Reference Range Interpretation Comments VDRL, CSF (test code = Nonreactive Nonreactive 5290-2) JUANA (test code = JUANA) TEST PERFORMED BY [facility] Lab Interpretation (test Normal code = 64955-1) [facility] HospitalOligoclonal [id number] 14:08:48 Test Item Value Reference Interpretation Comments Range Oligoclonal ABSENT ABSENT No oligoclonal bands Bands, CSF (test were identi fied in this code = 9004654) patient's CS F when compared tothei r corresponding s armando sample. Oligocl onal bands are prese nt in the CSF of more hiren n 85% of patients withcl inically definite multip le sclerosis (MS). To distinguish betweenoligoclo nal bands in the CSF due to a peripheral gamm opathy and oligoclonal bands due to local produc tion in the AUTOMATIC QUILLING MACHINE OPERATOR, serum and CSF should be testedsimultane ously. Oligoclonal ban ds can however be obse rved in a variety ofother diseases, e.g., subacute sclerosing panencephalitis , inflammatorypol yneuropat hy, AUTOMATIC QUILLING MACHINE OPERATOR lupus, and brain tumors and infa rctions. The clinicalsig nificance of a numerical band count, determin ed by isoelectric foc using,has not been defini tively defined. The da ta should be interpreted inconjunction w ith all pertinent clini dhaval and laboratory data for this patient. FINAL RESOLUTION (test code = 5458313) JUANA (test code = Performing Lab JUANA) EZ [facility] [address] [place] [address] Mitchell Zhong MD, PhD, YOLY [facility] HospitalPOCT[facility]SE [id number] 11:49:53 Test Item Value Reference Range Interpretation Comments POC-GLUCOSE METER 116 mg/dL 70-110 H : TESTED A T [facility] ([employer]) (test code = [employer] [facility], 153) 04478: Poultry Husbandman/Techni ilir ID = [id number] for Um eh, Jameelumbu POCT-GLUCOSE [id number] 08:21:56 Test Item Value Reference Range Interpretation Comments POC-GLUCOSE METER 93 mg/dL 70-110 : TESTED A T [facility] ([employer]) (test code = [facility] [employer] [facility], 153) 19798: Poultry Husbandman/Techni ilir ID = [id number] for Bailey Baez POCT-GLUCOSE [id number] 21:03:50 Test Item Value Reference Range Interpretation Comments POC-GLUCOSE METER 98 mg/dL 70-110 : TESTED A T [facility] (BEAKER) (test code = [facility], 1538) 14722: Poultry Husbandman/Techni ilir ID = [id number] for Bailey Baez POCT-GLUCOSE [id number] 20:53:34 Test Item Value Reference Range Interpretation Comments POC-GLUCOSE METER 126 mg/dL 70-110 H : TESTED A T [facility] 6720 (BEAKER) (test code [facility], = 1538) 55907: Poultry Husbandman/Techni ilir ID = [id number] for Kike Ramos POCT-GLUCOSE [id number] 17:03:39 Test Item Value Reference Range Interpretation Comments POC-GLUCOSE METER 91 mg/dL 70-110 : TESTED A T [facility] (BEAKER) (test code = [facility], 1538) 98982: Poultry Husbandman/Techni ilir ID = [id number] for Bailey Baez SARS-COV2/RT-PCR ([facility])2022-07-06 12:07:55 Test Item Value Reference Range Interpretation Comments SARS-COV2/RT-PCR Negative Negative The SARS-Co V-2 target (test code = nucleic acids a re not 3495807) detected in thi s specimen. Negative result [...] revoked sooner. Fact Sheet for Healthcare Providers: https://www.Community Cash m/Documents/Xpert%20Xpress%20SARS%20CoV-2/Fact%20Sheets/302-3802%84DVOK-UYE-0%20 HEALTHCARE%20PROVIDERS%20FACT%20SHEET.pdf Fact Sheet for Healthcare Patients: https://www.Nomi/Documents/Xpert%20Xp ress%20SARS%20CoV-2/Fact%20Sheets/302-3801%52ZVNU-FCE-5%20PATIENT%20FACT%20SHEET .pdfPOCT-GLUCOSE [id number] 08:58:44 Test Item Value Reference Range Interpretation Comments POC-GLUCOSE METER 77 mg/dL 70-110 : TESTED A T [facility]20 (BEAKER) (test code = [facility], 153) 53940: Poultry Husbandman/Techni ilir ID = [id number] for Umeh , Akumbu POCT-GLUCOSE [id number] 22:01:05 Test Item Value Reference Range Interpretation Comments POC-GLUCOSE METER 128 mg/dL 70-110 H : TESTED A T [facility] (BEAKER) (test code = [facility], 153) 07382: Poultry Husbandman/Techni ilir ID = [id number] for Ty ler, Reshawn POCT-GLUCOSE [id number] 18:16:22 Test Item Value Reference Range Interpretation Comments POC-GLUCOSE METER 121 mg/dL 70-110 H : TESTED A T [facility] (BEAKER) (test code = [facility], 153) 06809: Poultry Husbandman/Techni iilr ID = [id number] for Um eh, Akumbu POCT-GLUCOSE [id number] 11:59:27 Test Item Value Reference Range Interpretation Comments POC-GLUCOSE METER 116 mg/dL 70-110 H : TESTED A T [facility]20 (BEAKER) (test code = [facility], 1538) 13947: Poultry Husbandman/Techni ilir ID = [id number] for Um eh, Jameelumbu POCT-GLUCOSE [id number] 08:22:12 Test Item Value Reference Range Interpretation Comments POC-GLUCOSE METER 122 mg/dL 70-110 H : TESTED A T [facility]20 (BEAKER) (test code = [facility], 1538) 54609: Poultry Husbandman/Techni ilir ID = [id number] for DELIO BANUELOS POCT-GLUCOSE [id number] 21:35:02 Test Item Value Reference Range Interpretation Comments POC-GLUCOSE METER 100 mg/dL 70-110 : TESTED A T [facility] (BEAKER) (test code = [facility], 153) 60522: Poultry Husbandman/Techni ilir ID = [id number] for Pravin Santos Protein Electrophoresis, [id number] 18:01:28 Test Item Value Reference Range Interpretation Comments Scan Result (test code = 9923573) Protein Refer to individual electrophoresis, CSF Protein Electrophoresis, (test code = 2991482) CSF results. [facility] HospitalPOCT[facility]SE [id number] 17:54:51 Test Item Value Reference Range Interpretation Comments POC-GLUCOSE METER 113 mg/dL 70-110 H : TESTED A T [facility] (BEAKER) (test code = [facility], 153) 92926: Poultry Husbandman/Techni ilir ID = [id number] for AZIZA US Angiotensin Converting Enzyme (CARROL)2022-07-04 13:59:36 Test Item Value Reference Range Interpretation Comments CARROL, Serum (test code = 6 U/L L ) JUANA (test code = JUANA) Performing Lab EZ [facility] [address] [place] [address] Mitchell Zhong MD, PhD, YOLY Lab Interpretation (test Abnormal code = 72029-2) [facility] HospitalIgG Index (CSF + Blood)2022-07-04 13:46:59 Test [...] Igg Index,Csf (test 0.6 <0.66 code = 6639762) Albumin, CSF (test 19.1 mg/dL 8.0-42.0 code = 7398267) IgG, CSF (test code 2.1 mg/dL 0.8-7.7 = 0141606) IMMUNOGLOBULIN G, 585 mg/dL 600-1540 L SERUM (test code = 2148015) Albumin, Serum (test 3.2 g/dL 3.2-4.6 The Ig G Synthesis code = 9584679) rate, CSF an d IgG index, CSF are two formulae forestimating t he amount of IgG produced in the central nervous system. Evidenc eof increased synthesis of Ig G provides suppor t for the diagnos is of multiplescleros is. JUANA (test code = Performing Lab EZ JUANA) [facility] [address] [place] [address] Mitchell Zhong MD, PhD, YOLY Lab Interpretation Abnormal (test code = 05743-5) [facility] HospitalAlbumin, [id number] 12:33:51 Test Item Value Reference Range Interpretation Comments Albumin, CSF (test 19.2 mg/dL 8.0-42.0 code = 5666542) JUANA (test code = Performing Lab EZ [facility] JUANA) [facility] [address] [place] [address] Mitchell Zhong MD, PhD, YOLY [facility] HospitalPOCT-GLUCOSE [id number] 12:06:57 Test Item Value Reference Range Interpretation Comments POC-GLUCOSE METER 110 mg/dL 70-110 : TESTED A T [facility] ([employer]) (test code = [facility], 1538) 94097: Poultry Husbandman/Techni ilir ID = [id number] for AZIZA US POCT-GLUCOSE [id number] 08:50:56 Test Item Value Reference Range Interpretation Comments POC-GLUCOSE METER 90 mg/dL 70-110 : TESTED A T [facility] ([employer]) (test code = [facility] [employer] [facility], 1538) 40922: Poultry Husbandman/Techni ilir ID = [id number] for AZIZA LAZO BASIC METABOLIC [id number] 05:06:42 Test Item Value Reference Range Interpretation [...] not as accur ate as Creatinine Brigitte shonad in predicting glom erular filtration rate . Estimated GFR is not appl icable for dialysis patien ts Poultry Husbandman ID - PIAYA LPOCT-GLUCOSE [id number] 20:41:02 Test Item Value Reference Range Interpretation Comments POC-GLUCOSE METER 122 mg/dL 70-110 H : TESTED A T [facility]20 (BEAKER) (test code [facility], = 1538) 34166: Poultry Husbandman/Techni ilir ID = [id number] for Kike Ramos POCT-GLUCOSE [id number] 18:02:41 Test Item Value Reference Range Interpretation Comments POC-GLUCOSE METER 121 mg/dL 70-110 H : TESTED A T [facility]20 (BEAKER) (test code = [facility], 1538) 74558: Poultry Husbandman/Techni ilir ID = [id number] for AZIZA US HTLV 1/2 [id number] 14:14:06 Test Item Value Reference Range Interpretation Comments Htlv1/2 Antibody Nonreactive Nonreactive (test code = 3127564) JUANA (test code = JUANA) Performing Lab 15 [facility] [address] [place] [address] Dr [place], [place] Nathaniel Ceja MD, PhD [facility] HospitalAquaporin-4 (AQP4)(NMO-IgG) Antibody with Reflex to Titer, [id number] 12:47:40 Test Item Value Reference Range Interpretation Comments AQUAPORIN 4 AB, NEGATIVE NEGATIVE This test w as CBA, CSF (test developed and its code = 2096604) analytical p erformance characteristics havebeen determ ined by [facility] .It has not been cleare d or approved by FDA . This assay has been validatedpursua nt to the CLIA regula tions and is used for clinical purpos es. AQUAPORIN 4 AB, TNP See_Comment Test not per formed. TITER, CSF Reflex testing not (test code = required since 4998508) established cri teriawas not met. This t est was developed and i ts analytical perf ormance characteristics havebeen determ ined by [facility] [...] (test code Performing Lab EZ = JUANA) [facility] [address] [place] [address] Mitchell Zhong MD, PhD, YOLY [facility] HospitalPOCT-GLUCOSE [id number] 12:31:33 Test Item Value Reference Range Interpretation Comments POC-GLUCOSE METER 103 mg/dL 70-110 : TESTED A T [facility] 6720 (BEAKER) (test code = [place], 1538) 31335: Poultry Husbandman/Techni ilir ID = [id number] for AZIZA US POCT-GLUCOSE [id number] 08:32:03 Test Item Value Reference Range Interpretation Comments POC-GLUCOSE METER 97 mg/dL 70-110 : TESTED A T [facility] (BEAKER) (test code = [facility], 1538) 40814: Poultry Husbandman/Techni ilir ID = [id number] for AZIZA [employer]ZO [employer] MET[employer] [id number] 06:39:57 Test Item Value Reference Range Interpretation [...] not appl icable for dialysis patien ts Poultry Husbandman ID - PIAYA LPOCT-GLUCOSE [id number] 20:58:25 Test Item Value Reference Range Interpretation Comments POC-GLUCOSE METER 122 mg/dL 70-110 H : TESTED A T [facility] 6720 (BEAKER) (test code [facility], = 1538) 53981: Poultry Husbandman/Techni ilir ID = [id number] for Kike Ramos POCT-GLUCOSE [id number] 17:53:38 Test Item Value Reference Range Interpretation Comments POC-GLUCOSE METER 85 mg/dL 70-110 : TESTED A T [facility] 6720 (BEAKER) (test code = [facility], 1538) 69142: Poultry Husbandman/Techni ilir ID = [id number] for WILL IAMS, TYNEKA CSF culture + gram [id number] 13:31:36 Test Item Value Reference Range Interpretation Comments Result (test code = 6463-4) No growth Gram Stain Result (test No organisms seen code = 1123) [facility] HospitalCSF CULTURE + GRAM [id number] 13:31:36 Test Item Value Reference Range Interpretation Comments CULTURE (BEAKER) (test code No growth = 1095) GRAM STAIN RESULT (BEAKER) <1+ WBCs (test code = 1123) GRAM STAIN RESULT (BEAKER) No organisms seen (test code = 09846) POCT-GLUCOSE [id number] 11:52:03 Test Item Value Reference Range Interpretation Comments POC-GLUCOSE METER 114 mg/dL 70-110 H : TESTED A T [facility] 6720 (BEAKER) (test code = [facility], 1538) 37907: Poultry Husbandman/Techni ilir ID = [id number] for [place] LLIAMS, TYNEKA POCT-GLUCOSE [id number] 08:01:37 Test Item Value Reference Range Interpretation Comments POC-GLUCOSE METER 115 mg/dL 70-110 H : TESTED A T [facility] 6720 (BEAKER) (test code = [facility], 1538) 51045: Poultry Husbandman/Techni ilir ID = [id number] for [place] LLIAMS, TYNEKA POCT-GLUCOSE [id number] 21:43:01 Test Item Value Reference Range Interpretation Comments POC-GLUCOSE METER 105 mg/dL 70-110 : TESTED A T [facility] 6720 (BEAKER) (test code = [facility], 1538) 78270: Poultry Husbandman/Techni ilir ID = [id number] for Giovanni brianPoonam POCT-GLUCOSE [id number] 17:40:43 Test Item Value Reference Range Interpretation Comments POC-GLUCOSE METER 113 mg/dL 70-110 H : TESTED A T [facility]20 (BEAKER) (test code = [facility], 153) 65952: Poultry Husbandman/Techni ilir ID = [id number] for Tami Negrete POCT-GLUCOSE [id number] 13:10:45 Test Item Value Reference Range Interpretation Comments POC-GLUCOSE METER 80 mg/dL 70-110 : TESTED A T [facility] 6720 (BEAKER) (test code = [facility], 153) 70870: Poultry Husbandman/Techni ilir ID = [id number] for MART ALFONZO, ANGELO POCT-GLUCOSE [id number] 08:22:15 Test Item Value Reference Range Interpretation Comments POC-GLUCOSE METER 98 mg/dL 70-110 : TESTED A T [facility]20 (BEAKER) (test code = [facility]) 18606: Poultry Husbandman/Techni ilir ID = [id number] for MART ALFONZO, ANGELO POCT-GLUCOSE [id number] 08:21:39 Test Item Value Reference Range Interpretation Comments POC-GLUCOSE METER 116 mg/dL 70-110 H : TESTED A T [facility]20 (BEAKER) (test code = [facility], 153) 01284: Poultry Husbandman/Techni ilir ID = [id number] for YASMEEN RODRIGUEZINEZ, ANGELO POCT-GLUCOSE [id number] 22:14:07 Test Item Value Reference Range Interpretation Comments POC-GLUCOSE METER 125 mg/dL 70-110 H : TESTED A T [facility]20 (BEAKER) (test code = [facility], 153) 25052: Poultry Husbandman/Techni ilir ID = [id number] for TAYA CAGE Paraneoplastic Panel, [id number] 18:00:30 Test Item Value Reference Range Interpretation Comments PARANEOPLASTIC AB CSF Refer to Individual AUTOVERIFICATION (test Test Results code = 691455984593) [facility] HospitalPOCT-GLUCOSE [id number] 12:31:21 Test Item Value Reference Range Interpretation Comments POC-GLUCOSE METER 104 mg/dL 70-110 : TESTED A T [facility]20 (BEAKER) (test code = [facility], 1538) 86686: Poultry Husbandman/Techni ilir ID = [id number] for MADISON CARREROILIA POCT-GLUCOSE [id number] 12:31:20 Test Item Value Reference Range Interpretation Comments POC-GLUCOSE METER 89 mg/dL 70-110 : TESTED A T [facility]20 (BEAKER) (test code = [facility], 1538) 54858: Poultry Husbandman/Techni ilir ID = [id number] for RONIT MEJÍA ANGELO POCT-GLUCOSE [id number] 08:48:55 Test Item Value Reference Range Interpretation Comments POC-GLUCOSE METER 149 mg/dL 70-110 H : TESTED A T [facility] (BEAKER) (test code = [facility], 1538) 36533: Poultry Husbandman/Techni ilir ID = [id number] for CHERYL THOMPSON BASIC METABOLIC [id number] 05:43:18 Test Item Value Reference Range Interpretation [...] not appl icable for dialysis patien ts Poultry Husbandman ID - ADMINPOCT-GLUCOSE [id number] 22:14:54 Test Item Value Reference Range Interpretation Comments POC-GLUCOSE METER 105 mg/dL 70-110 : TESTED A T [facility] 6720 (BEAKER) (test code = [place], 1538) 52178: Poultry Husbandman/Techni ilir ID = [id number] for TAYA CAGE CSF cell count with [id number] 19:27:29 Test Item Value Reference Range Interpretation Comments Appearance (test code Clear Clear = 90816-2) Color (test code = Colorless Colorless 44320-6) RBCs (test code = 0 See_Comment [Automate [...] RBCs Fresh? (test Not Applicable code = 59358-7) # of Cells Diff'd 1 (test code = 81728-6) % Neutros (test code 0 % 0-5 = 50285-7) % Lymphs (test code = 100 % 40-80 H 93718-4) % Monos (test code = 0 % [...] 2677) Lab Interpretation Abnormal (test code = 86430-8) [facility] HospitalCSF CELL COUNT [id number]/[id number] 19:27:29 Test Item Value Reference Range Interpretation [...] 1 (BEAKER) (test code = 2678) POCT-GLUCOSE [id number] 19:00:46 Test Item Value Reference Range Interpretation Comments POC-GLUCOSE METER 133 mg/dL 70-110 H : TESTED A T [facility] 6720 (BEAKER) (test code = [employer] [facility], 1538) 42103: Poultry Husbandman/Techni ilir ID = [id number] for MA RTINEZ, ANGELO POCT-GLUCOSE [id number] 19:00:39 Test Item Value Reference Range Interpretation Comments POC-GLUCOSE METER 97 mg/dL 70-110 : TESTED A T [facility] 6720 (BEAKER) (test code = [facility] [employer] [facility], 1538) 03074: Poultry Husbandman/Techni ilir ID = [id number] for MART ALFONZO, ANGELO Glucose, [id number] 18:01:05 Test Item Value Reference Range Interpretation Comments Glucose, CSF (test code = 49 mg/dL 40-70 2342-4) JUANA (test code = JUANA) Poultry Husbandman ID - ADMIN Lab Interpretation (test Normal code = 72761-2) [facility] HospitalProtein, [id number] 18:01:05 Test Item Value Reference Range Interpretation Comments Protein, CSF (test code = 33 mg/dL 15-45 2880-3) JUANA (test code = JUANA) Poultry Husbandman ID - ADMIN Lab Interpretation (test Normal code = 12138-4) [facility] HospitalGLUCOSE, [id number] 18:01:05 Test Item Value Reference Range Interpretation Comments GLUCOSE CSF (BEAKER) (test code = 49 mg/dL 40-70 406) Poultry Husbandman ID - ADMINPROTEIN, [id number] 18:01:05 Test Item Value Reference Range Interpretation Comments PROTEIN CSF (BEAKER) (test code = 33 mg/dL 15-45 378) Poultry Husbandman ID - ADMINSARS-COV2/RT-PCR ([facility])2022-06-29 18:00:56 Test Item Value Reference Range Interpretation Comments SARS-COV2/RT-PCR Negative Negative The SARS-Co V-2 target (test code = nucleic acids a re not 9913238) detected in thi s specimen. Negative result [...] revoked sooner. Fact Sheet for Healthcare Providers: https://www.Community Cash m/Documents/Xpert%20Xpress%20SARS%20CoV-2/Fact%20Sheets/302-3802%30FFSL-PIN-5%20 HEALTHCARE%20PROVIDERS%20FACT%20SHEET.pdf Fact Sheet for Healthcare Patients: https://www.Nomi/Documents/Xpert%20Xp ress%20SARS%20CoV-2/Fact%20Sheets/302-3801%75XMNF-FLM-5%20PATIENT%20FACT%20SHEET .pdfBACASE[facility] METABOLIC [id number] 03:47:07 Test Item Value Reference Range Interpretation [...] not appl icable for dialysis patien ts Poultry Husbandman ID - PIAYA LCBC W/PLT COUNT & AUTO [id number] 03:27:59 Test Item Value Reference Range Interpretation [...] PERCENT (AKER) (test code = 2801) POCT-GLUCOSE [id number] 22:06:55 Test Item Value Reference Range Interpretation Comments POC-GLUCOSE METER 118 mg/dL 70-110 H : TESTED A T [facility] ([facility]) (test code = [facility], [facility]8) 75948: Poultry Husbandman/Techni ilir ID = [id number] for Poonam Alfred POCT-GLUCOSE [id number] 12:59:43 Test Item Value Reference Range Interpretation Comments POC-GLUCOSE METER 113 mg/dL 70-110 H : TESTED A T [facility] ([facility]) (test code = [facility]8) 44612: Poultry Husbandman/Techni ilir ID = [id number] for RO DGERS, JAMECA POCT-GLUCOSE [id number] 08:25:18 Test Item Value Reference Range Interpretation Comments POC-GLUCOSE METER 91 mg/dL 70-110 : TESTED A T [facility] ([facility]) (test code = [facility]8) 06651: Poultry Husbandman/Techni ilir ID = [id number] for RODG ERS, JAMECA POCT-GLUCOSE [id number] 01:54:22 Test Item Value Reference Range Interpretation Comments POC-GLUCOSE METER 114 mg/dL 70-110 H : TESTED A T [facility] ([facility]) (test code = [facility]8) 81264: Poultry Husbandman/Techni ilir ID = [id number] for DIANA JEZONJOSE CTTA POCT-GLUCOSE [id number] 16:59:04 Test Item Value Reference Range Interpretation Comments POC-GLUCOSE METER 122 mg/dL 70-110 H : TESTED A T [facility] ([facility]) (test code = [facility]8) 14044: Poultry Husbandman/Techni ilir ID = [id number] for RO DGERS, JAMECA POCT-GLUCOSE [id number] 12:45:25 Test Item Value Reference Range Interpretation Comments POC-GLUCOSE METER 145 mg/dL 70-110 H : TESTED A T [facility] 6720 (BEAKER) (test code = [facility] [place], 1538) 65266: Poultry Husbandman/Techni ilir ID = [id number] for CHERYL THOMPSON POCT-GLUCOSE [id number] 00:05:46 Test Item Value Reference Range Interpretation Comments POC-GLUCOSE METER 171 mg/dL 70-110 H : TESTED A T [facility] 6720 (BEAKER) (test code = [facility], 1538) 04951: Poultry Husbandman/Techni ilir ID = [id number] for KRISTINE WALTER BASIC METABOLIC [id number] 06:59:12 Test Item Value Reference Range Interpretation [...] not appl icable for dialysis patien ts Poultry Husbandman ID - PIAYA [id number] 06:59:12 Test Item Value Reference Range Interpretation Comments MAGNESIUM (BEAKER) (test code = 1.7 mg/dL 1.6-2.6 627) Poultry Husbandman ID - PIAYA LCBC W/PLT COUNT & AUTO [id number] 06:42:11 Test Item Value Reference Range Interpretation [...] W/Doppler(CW/PW/Color)2022-06-25 15:54:03Ejection FractionSLEH ECHO HEARTLAB MKCKESSON CPACSCHI [facility] HospitalMR, SPINE, LUMBAR, WITH 2022-06-24 14:06:00Unlisted Reason for Exam - Click Yes and Enter Reason Below->NoFL[facility] SERVICESName: [facility]DA : 1960 Sex: MFINAL REPORT [...] posterior cervical spinal cord on the large ijwdy-gq-wfce images There is no significant foraminal or [...] Verified Date/Time: 06/24/2022 14:06:49 MR, SPINE, THORACIC, [id number] 14:06:00Unlisted Reason for Exam - Click Yes and Enter Reason Below->No [facility] : 1960 Sex: [...] posterior cervical spinal cord on the large cyaxx-wr-lwfj images There is no significant foraminal or [...] superior L1-L3 vertebral bodies. Signed: Maddie Mcfarland [facility] Verified Date/Time: 06/24/2022 14:06:49 CT, HENRIKNGPATI [id number] 14:36:00MRB with subacute infarctsUnlisted Reason for Exam - Click Yes and Enter Reason Below->No [facility] : 1960 Sex: [...] MDReport Verified Date/Time: 06/23/2022 14:36:05 CT, CAROTID, [id number] 14:36:00MRB with subacute infarctsUnlisted Reason for Exam - Click Yes and Enter Reason Below->No [facility] : 1960 Sex: [...] Verified Date/Time: 06/23/2022 14:36:05 MR, SPINE, CERVICAL, [id number] 13:12:00Unlisted Reason for Exam - Click Yes and Enter Reason Below->No [facility] : 1960 Sex: [...] sclerosis. No associated enhancement. Signed: Maddie Mcfarland [facility] Verified Date/Time: 06/23/2022 13:12:55 [id number] 12:52:03 Test Item Value Reference Range Interpretation Comments RPR SCREEN (SANAM) (test code = Nonreactive Nonreactive 420) HEMOGLOBIN [id number] 12:40:19 Test Item Value Reference Range Interpretation Comments HEMOGLOBIN A1C 5.5 % See_Comment [Automated m essage] ELECTROPHORESIS ([employer]) The system which (test code = 3811) generated this result transmitted ref erence range: <=5.6%. The reference range was not used to int erpret this result as normal/abnormal . "The A1c is measured using a NGSP-certified method. HbA1c value equal to or greater than 6.5% as thediagnosis cutoff for diabetes. An HbA1c value of 5.7- 6.4% indicates increased risk for diabetes (prediabetes)."Poultry Husbandman ID - ADM TSH/FREE T4 IF [id number] 12:29:54 Test Item Value Reference Range Interpretation Comments THYROID STIMULATING HORMONE 1.690 uIU/mL 0.350-4.940 ([employer]) (test code = 772) Poultry Husbandman ID - MARCOLIPID [id number] 12:03:12 Test Item Value Reference Range Interpretation Comments TRIGLYCERIDES ([employer]) (test code = 37 mg/dL 540) CHOLESTEROL ([employer]) (test code = 102 mg/dL 631) HDL CHOLESTEROL ([employer]) (test code 43 mg/dL = 976) LDL CHOLESTEROL CALCULATED ([facility] [employer]) 52 mg/dL (test code = 633) Triglyceride Reference Range: Low Risk <150 Borderline 150-199 High Risk 200- 499 Very High Risk >=500Cholesterol Reference Range: Low Risk <200 Borderline 200-239 High Risk >240HDL Cholesterol Reference Range: Low Risk >=60 High Risk <40LDL Cholesterol Reference Range: Optimal <100 Near Optimal 100-129 Borderline 130-159 High 160-189 Very High >=190 Poultry Husbandman ID - WILLIAM, BRAIN, [id number] 09:35:00Reason for exam:->Biletral LE weakness What is the patient's sedation requirement?->No Sedation [facility] 1960 Sex: MFINAL [...] may represent sequela of hypertension. Signed:[facility]addie Mcfarland [facility] Verified Date/Time: 06/23/2022 09:35:32 BASIC METABOLIC [id number] 04:52:25 Test Item Value Reference Range Interpretation [...] not appl icable for dialysis patien ts Poultry Husbandman ID - DORIRS-COV2/RT-PCR ([facility])2022-06-22 10:57:50 Test Item Value Reference Range Interpretation Comments SARS-COV2/RT-PCR Negative Negative The SARS-Co V-2 target (test code = nucleic acids a re not 2093235) detected in thi s specimen. Negative result [...] revoked sooner. Fact Sheet for Healthcare Providers: https://www.Community Cash m/Documents/Xpert%20Xpress%20SARS%20CoV-2/Fact%20Sheets/302-3802%92HPJK-XLK-5%20 HEALTHCARE%20PROVIDERS%20FACT%20SHEET.pdf Fact Sheet for Healthcare Patients: https://www.Nomi/Documents/Xpert%20Xp ress%20SARS%20CoV-2/Fact%20Sheets/302-3801%79LVDS-YHQ-2%20PATIENT%20FACT%20SHEET .pdfB[facility] METABOLIC [id number] 06:52:29 Test Item Value Reference Range Interpretation [...] not appl icable for dialysis patien ts Poultry Husbandman ID - EVELIA PAINTINGASIC METABOLIC [id number] 02:11:54 Test Item Value Reference Range Interpretation [...] not appl icable for dialysis patien ts Poultry Husbandman ID - ALEKSEY MVITAMIN [id number] 17:51:59 Test Item Value Reference Range Interpretation Comments VITAMIN B12 (BEAKER) (test code = 480 pg/mL 213-263 774) Poultry Husbandman ID - BSRAD, ANKLE, MIN 3 VIEWS, [id number] 15:52:00Reason for exam:->hx of falls and severe ankle painShould this be performed at the bedside?->[facility] : 1960 Sex: MFINAL REPORT Clinical history: hx of falls and severe ankle pain TECHNIQUE: 3 views of the bilateral ankles COMPARISON: None IMPRESSION: Both ankles are intact without fracture or dislocation. Signed: Beth Stark Verified Date/Time: 06/19/2022 15:52:39 Reading Location: [address] Reading Room RAD, ANKLE, MIN 3 VIEWS, [id number] 15:52:00Reason for exam:->hx of falls and severe bilateral ankle painShould this be performed at the bedside?->Yes [facility] : 1960 Sex: MFINAL REPORT Clinical history: hx of falls and severe ankle pain TECHNIQUE: 3 views of the bilateral ankles COMPARISON: None IMPRESSION: Both ankles are intact without fracture or dislocation. Signed: Beth Stark Verified Date/Time: 06/19/2022 15:52:39 Reading Location: [address] Reading Room URIC [id number] 12:29:59 Test Item Value Reference Range Interpretation Comments URIC ACID (BEAKER) (test code = 6.1 mg/dL 2.6-7.2 773) Poultry Husbandman ID - MARCOPROTHROMBIN TIME/[id number] 06:12:42 Test Item Value Reference Range Interpretation Comments PROTIME (BEAKER) 13.1 seconds 11.9-14.2 (test code = 759) INR (BEAKER) (test 1.06 See_Comment [Automat ed message] code = 370) The system [employer]sta™ generated this result transmitted ref erence range: <=5.90. The reference range was not used to int erpret this result as normal/abnormal . RECOMMENDED COUMADIN/WARFARIN INR THERAPY RANGESSTANDARD DOSE: 2.0 - 3.0 Includes: PROPHYLAXIS for venous thrombosis, systemic embolization; TREATMENT for venous thrombosis and/or pulmonary embolus.HIGH RISK: Target INR is 2.5-3.5 for patients with mechanical heart valves.[id number] 05:42:51 Test Item Value Reference Range Interpretation Comments MAGNESIUM (BEAKER) (test code = 1.7 mg/dL 1.6-2.6 627) Poultry Husbandman ID - MARCOBASIC METABOLIC [id number] 05:42:50 Test Item Value Reference Range Interpretation [...] not appl icable for dialysis patien ts Poultry Husbandman ID - MARCOCBC W/PLT COUNT & AUTO [id number] 05:28:00 Test Item Value Reference Range Interpretation [...] PERCENT (BEAKER) (test code = 2801) POC-Glucose [id number] 11:50:45 Test Item Value Reference Range Interpretation Comments POC-Glucose Meter (test 116 mg/dL 70-110 H : TE STED AT [facility] code = 1538) 6720 [facility], 770 30: Poultry Husbandman/Techni ilir ID = [id number] for MATIAS ROB Lab Interpretation (test Abnormal code = 80274-6) [facility] [id number] 11:50:45 Test Item Value Reference Range Interpretation Comments POC-GLUCOSE METER 116 mg/dL 70-110 H : [facility] (BEAKER[facility] (test code = [facility], 1538) 97487: Poultry Husbandman/Techni ilir ID = [id number] for HU NTER, HIWITHA POCT-GLUCOSE [id number] 07:12:04 Test Item Value Reference Range Interpretation Comments POC-GLUCOSE METER 100 mg/dL 70-110 : TESTED A T [facility] 6720 (BEAKER) (test code = [facility], 1538) 00234: Poultry Husbandman/Techni ilir ID = [id number] for HU NTER, HIWITHA BASIC METABOLIC [id number] 05:05:52 Test Item Value Reference Range Interpretation [...] not appl icable for dialysis patien ts Poultry Husbandman ID - HENRY WCBC W/PLT COUNT & AUTO [id number] 04:17:24 Test Item Value Reference Range Interpretation [...] PERCENT (BEAKER) (test code = 2801) POCT-GLUCOSE [id number] 21:09:21 Test Item Value Reference Range Interpretation Comments POC-GLUCOSE METER 119 mg/dL 70-110 H : TESTED A T [facility] 6720 (BEAKER) (test code = [facility], 153) 78729: Poultry Husbandman/Techni ilir ID = [id number] for ISAIAS ASHRAF SE POCT-GLUCOSE [id number] 16:49:45 Test Item Value Reference Range Interpretation Comments POC-GLUCOSE METER 87 mg/dL 70-110 : TESTED A T [facility] 6720 (BEAKER) (test code = [facility], 153) 92020: Poultry Husbandman/Techni ilir ID = [id number] for BRIANVELIA MARIE POCT-GLUCOSE [id number] 12:12:01 Test Item Value Reference Range Interpretation Comments POC-GLUCOSE METER 97 mg/dL 70-110 : TESTED A T [facility] 6720 (BEAKER) (test code = [place], 1538) 71871: Poultry Husbandman/Techni ilir ID = [id number] for MARIE TALAVERA POCT-GLUCOSE [id number] 08:24:18 Test Item Value Reference Range Interpretation Comments POC-GLUCOSE METER 95 mg/dL 70-110 : TESTED A T [facility] 6720 (BEAKER) (test code = [facility], 1538) 24895: Poultry Husbandman/Techni ilir ID = [id number] for MARIE TALAVERA BASIC METABOLIC [id number] 06:41:00 Test Item Value Reference Range Interpretation [...] not appl icable for dialysis patien ts Poultry Husbandman ID - ALEKSEY MCBC W/PLT COUNT & AUTO [id number] 05:06:23 Test Item Value Reference Range Interpretation [...] PERCENT (BEAKER) (test code = 2801) POCT-GLUCOSE [id number] 21:14:48 Test Item Value Reference Range Interpretation Comments POC-GLUCOSE METER 123 mg/dL 70-110 H : TESTED A T [facility] 6720 (BEAKER) (test code = [facility], 1538) 25907: Poultry Husbandman/Techni ilir ID = [id number] for PE RALISAURO, SUDHA POCT-GLUCOSE [id number] 17:25:39 Test Item Value Reference Range Interpretation Comments POC-GLUCOSE METER 108 mg/dL 70-110 : TESTED A T [facility] 6720 (BEAKER) (test code = [facility], 1538) 62748: Poultry Husbandman/Techni ilir ID = [id number] for CO RTEZ, JILLIAN POCT-GLUCOSE [id number] 11:16:40 Test Item Value Reference Range Interpretation Comments POC-GLUCOSE METER 151 mg/dL 70-110 H : TESTED A T [facility] 6720 (BEAKER) (test code = [facility], 1538) 30295: Poultry Husbandman/Techni ilir ID = [id number] for CO RTEZ, JILLIAN POCT-GLUCOSE [id number] 07:40:07 Test Item Value Reference Range Interpretation Comments POC-GLUCOSE METER 91 mg/dL 70-110 : TESTED A T [facility] 6720 (BEAKER) (test code = [facility], 1538) 49811: Poultry Husbandman/Techni ilir ID = [id number] for BHAVANI EZ, JILLIAN BASIC METABOLIC [id number] 05:19:53 Test Item Value Reference Range Interpretation [...] not appl icable for dialysis patien ts Poultry Husbandman ID - PIAYA LCBC W/PLT COUNT & AUTO [id number] 04:32:38 Test Item Value Reference Range Interpretation [...] PERCENT (BEAKER) (test code = 2801) POCT-GLUCOSE [id number] 20:55:14 Test Item Value Reference Range Interpretation Comments POC-GLUCOSE METER 103 mg/dL 70-110 : TESTED A T [facility] 6720 (BEAKER) (test code = [facility], 153) 21507: Poultry Husbandman/Techni ilir ID = [id number] for SUDHA NEWMAN POCT-GLUCOSE [id number] 17:10:50 Test Item Value Reference Range Interpretation Comments POC-GLUCOSE METER 102 mg/dL 70-110 : TESTED A T [facility] 6720 (BEAKER) (test code = [facility], 1538) 64662: Poultry Husbandman/Techni ilir ID = [id number] for [place] LLIAMS, TYNEKA POCT-GLUCOSE [id number] 11:36:44 Test Item Value Reference Range Interpretation Comments POC-GLUCOSE METER 81 mg/dL 70-110 : TESTED A T [facility] 6720 (BEAKER) (test code = [facility], 1538) 28412: Poultry Husbandman/Techni ilir ID = [id number] for WILL IAMS, TYNEKA SARS-CoV2/RT-PCR (Asymptomatic ONLY)2022-06-06 09:22:33 Test Item Value Reference Interpretation Comments Range SARS-COV2/RT-PCR Negative Negative The SARS-Co V-2 (test code = target nucleic 57484-1) acids are not detected in thi s [...] revoked sooner. Fact Sheet for Healthcare Providers: https://www.KRAFTWERK/Documents/Xp ert%20Xpress%20SAR S%20CoV-2/Fact%20S heets/302-3802%20S ARS-COV-2%20HEALTH CARE%20PROVIDERS%2 0FACT%20SHEET.pdf Fact Sheet for Healthcare Patients: https://www.KRAFTWERK/Documents/Xp ert%20Xpress%20SAR S%20CoV-2/Fact%20S heets/302-3801%20S ARS-COV-2%20PATIEN T%20FACT%20SHEET.p df Lab Interpretation Normal (test code = 91363-1) [facility])2022-06-06 09:22:33 Test Item Value Reference Range Interpretation Comments SARS-COV2/RT-PCR Negative Negative The SARS-Co V-2 target (test code = nucleic acids a re not 3533338) detected in thi s specimen. Negative result [...] revoked sooner. Fact Sheet for Healthcare Providers: https://www.Community Cash m/Documents/Xpert%20Xpress%20SARS%20CoV-2/Fact%20Sheets/302-3802%00DDVF-YEG-1%20 HEALTHCARE%20PROVIDERS%20FACT%20SHEET.pdf Fact Sheet for Healthcare Patients: https://www.Nomi/Documents/Xpert%20Xp ress%20SARS%20CoV-2/Fact%20Sheets/302-3801%34ZPXS-WVO-9%20PATIENT%20FACT%20SHEET .pdfPOCT-GLUCOSE [id number] 07:37:53 Test Item Value Reference Range Interpretation Comments POC-GLUCOSE METER 96 mg/dL 70-110 : TESTED A T [facility] 6720 ([facility]) (test code = [place], 1538) 81270: Poultry Husbandman/Techni ilir ID = [id number] for LATANYA KRISHNAMURTHY BASIC METABOLIC [id number] 06:34:19 Test Item Value Reference Range Interpretation [...] not appl icable for dialysis patien ts Poultry Husbandman ID - PIAYA LCBC W/PLT COUNT & AUTO [id number] 05:38:02 Test Item Value Reference Range Interpretation [...] PERCENT (BEAKER) (test code = 2801) POCT-GLUCOSE [id number] 21:00:32 Test Item Value Reference Range Interpretation Comments POC-GLUCOSE METER 122 mg/dL 70-110 H : TESTED A T [facility] 6720 (BEAKER) (test code = [facility] [employer] [facility], 1538) 20186: Poultry Husbandman/Techni ilir ID = [id number] for HENRIQUE HERNANDEZ POCT-GLUCOSE [id number] 12:05:11 Test Item Value Reference Range Interpretation Comments POC-GLUCOSE METER 101 mg/dL 70-110 : TESTED A T [facility] 6720 (BEAKER) (test code = [facility] [employer] [facility], 1538) 69443: Poultry Husbandman/Techni ilir ID = [id number] for MATIAS OLMSTEAD POCT-GLUCOSE [id number] 06:58:14 Test Item Value Reference Range Interpretation Comments POC-GLUCOSE METER 99 mg/dL 70-110 : TESTED A T [facility] 6720 (BEAKER) (test code = [place], 1538) 24545: Poultry Husbandman/Techni ilir ID = [id number] for KERMIT LOYD, PELONWITHA BASIC METABOLIC [id number] 05:22:21 Test Item Value Reference Range Interpretation [...] not as accur ate as Creatinine Brigitte mercahnt in predicting glom erular filtration rate . Estimated GFR is not appl icable for dialysis patien ts Poultry Husbandman ID - PIAYA LCBC W/PLT COUNT & AUTO [id number] 04:36:55 Test Item Value Reference Range Interpretation [...] PERCENT (BEAKER) (test code = 2801) POCT-GLUCOSE [id number] 20:58:57 Test Item Value Reference Range Interpretation Comments POC-GLUCOSE METER 96 mg/dL 70-110 : TESTED A T [facility] 6720 (BEAKER) (test code = [facility] [employer] [facility], 1538) 22775: Poultry Husbandman/Techni ilir ID = [id number] for HENRIQUE PLASCENCIA POCT-GLUCOSE [id number] 16:29:29 Test Item Value Reference Range Interpretation Comments POC-GLUCOSE METER 137 mg/dL 70-110 H : TESTED A T [facility] 6720 (BEAKER) (test code = [facility], 1538) 81469: Poultry Husbandman/Techni ilir ID = [id number] for HU NTER, HIWITHA POCT-GLUCOSE [id number] 11:41:40 Test Item Value Reference Range Interpretation Comments POC-GLUCOSE METER 115 mg/dL 70-110 H : TESTED A T [facility] 6720 (BEAKER) (test code = [facility] [employer] [facility], 1538) 08854: Poultry Husbandman/Techni ilir ID = [id number] for HU NTER, HIWITHA CT, CHEST, WITH [id number] 07:53:00Reason for exam:->concern for metastatic diseaseWhat is the patient's sedation requirement?->No Sedation [facility] : 1960 Sex: MFINAL [...] right common iliac artery. Signed: Jeramy Sarabia [facility] Verified Date/Time: 06/04/2022 07:53:54 CT, [id number] 07:53:00Unlisted Reason for Exam - Click Yes and Enter Reason Below- >YesUnlisted Reason for Exam->ischemic bowel and hx of colon cancerIs this for enterography?->NoWill this procedure require oral contrast?->Yes [facility] : 1960 Sex: [...] Jeramy Sarabiaepinessa Verified Date/Time: 06/04/2022 07:53:54 POCT-GLUCOSE [id number] 06:55:58 Test Item Value Reference Range Interpretation Comments POC-GLUCOSE METER 95 mg/dL 70-110 : TESTED A T [facility] 6720 (BEAKER) (test code = [place], 1538) 19808: Poultry Husbandman/Techni ilir ID = [id number] for MATIAS WOODRUFF BASIC METABOLIC [id number] 06:20:56 Test Item Value Reference Range Interpretation [...] not appl icable for dialysis patien ts Poultry Husbandman ID - BSCBC W/PLT COUNT & AUTO [id number] 05:27:59 Test Item Value Reference Range Interpretation [...] PERCENT (BEAKER) (test code = 2801) POCT-GLUCOSE [id number] 21:20:45 Test Item Value Reference Range Interpretation Comments POC-GLUCOSE METER 115 mg/dL 70-110 H : TESTED A T [facility] 6720 (BEAKER) (test code = [facility], 1538) 50280: Poultry Husbandman/Techni ilir ID = [id number] for Es tahminaoza, Ashley POCT-GLUCOSE [id number] 17:16:19 Test Item Value Reference Range Interpretation Comments POC-GLUCOSE METER 114 mg/dL 70-110 H : TESTED A T [facility] 6720 (BEAKER) (test code = [facility], 1538) 47904: Poultry Husbandman/Techni ilir ID = [id number] for Am ador, Doe POCT-GLUCOSE [id number] 11:17:49 Test Item Value Reference Range Interpretation Comments POC-GLUCOSE METER 117 mg/dL 70-110 H : TESTED A T [facility] 6720 (BEAKER) (test code = [facility], 1538) 82307: Poultry Husbandman/Techni ilir ID = [id number] for Am ador, Doe POCT-GLUCOSE [id number] 07:38:05 Test Item Value Reference Range Interpretation Comments POC-GLUCOSE METER 106 mg/dL 70-110 : TESTED A T [facility] 6720 (BEAKER) (test code = [facility], 1538) 40529: Poultry Husbandman/Techni ilir ID = [id number] for Am ador, Doe BASIC METABOLIC [id number] 05:34:55 Test Item Value Reference Range Interpretation [...] not appl icable for dialysis patien ts Poultry Husbandman ID - ALEKSEY MCBC W/PLT COUNT & AUTO [id number] 05:08:48 Test Item Value Reference Range Interpretation [...] PERCENT (BEAKER) (test code = 2801) POCT-GLUCOSE [id number] 21:02:44 Test Item Value Reference Range Interpretation Comments POC-GLUCOSE METER 122 mg/dL 70-110 H : TESTED A [facility] 67 ([facility]) (test code = [facility], 1538) 53867: Poultry Husbandman/Techni ilir ID = [id number] for Isauro hatch Ashley POCT-GLUCOSE [id number] 14:54:50 Test Item Value Reference Range Interpretation Comments POC-GLUCOSE METER 97 mg/dL 70-110 : TESTED A [facility] 6720 ([facility]) (test code = [facility], 1538) 61869: Poultry Husbandman/Techni ilir ID = [id number] for DERRICK STOREY POC ACTIVATED CLOTTING [id number] 14:04:22 Test Item Value Reference Range Interpretation Comments Activated Clotting Time 260 sec : 74 -137 seconds, (test code = 3184-9) Baselin e: TESTED AT [facility] 6720 [facility], 770 30: Poultry Husbandman/Techni ilir ID = [id number] for Ga rza (contract), Aar on [facility] ACTIVATED CLOTTING [id number] 14:04:22 Test Item Value Reference Range Interpretation Comments Activated Clotting Time 260 sec : 74 -137 seconds, (test code = 3184-9) Baselin e: TESTED AT [facility] [address] [place] [address], 770 30: Poultry Husbandman/Techni ilir ID = [id number] for Ga rza (contract), [facility]ar on [facility][id number] 14:04:22 Test Item Value Reference Range Interpretation Comments ACTIVATED CLOTTING TIME 260 sec : 74 -137 seconds, (BEAKER) (test code = Baseli ne: TESTED AT 441) [facility] 67[address] [facility], 770 30: Poultry Husbandman/Techni ilir ID = [id number] for Ga rza (contract), Aar on POCT-GLUCOSE [id number] 11:19:31 Test Item Value Reference Range Interpretation Comments POC-GLUCOSE METER 96 mg/dL 70-110 : TESTED A T [facility] 6720 (BEAKER) (test code = [facility], 1538) 33355: Poultry Husbandman/Techni ilir ID = [id number] for Amad or, Doe POCT-GLUCOSE [id number] 08:05:08 Test Item Value Reference Range Interpretation Comments POC-GLUCOSE METER 98 mg/dL 70-110 : TESTED A T [facility] 6720 (BEAKER) (test code = [facility], 1538) 14750: Poultry Husbandman/Techni ilir ID = [id number] for Amad or, Doe CBC W/PLT COUNT & AUTO [id number] 06:08:47 Test Item Value Reference Range Interpretation [...] (BEAKER) (test code = 2801) BASIC METABOLIC [id number] 05:29:11 Test Item Value Reference Range Interpretation [...] = 358) GLUCOSE RANDOM 88 mg/dL 70-105 ([employer] Network SecurityAKER) (test code = 652) CALCIUM (BEAKER) 9.4 mg/dL 8.4-10.2 (test code = 697) EGFR ([employer] Network SecurityAKER) 102 Interpretatio n of eGFR (test code [...] not appl icable for dialysis patien ts Poultry Husbandman ID - BALAAYA LPOCT-GLUCOSE [id number] 21:07:11 Test Item Value Reference Range Interpretation Comments POC-GLUCOSE METER 100 mg/dL 70-110 : TESTED A T [facility] 6720 ([employer]) (test code = [facility], 1538) 01952: Poultry Husbandman/Techni ilir ID = [id number] for MATHEUS ROD POCT-GLUCOSE [id number] 16:42:15 Test Item Value Reference Range Interpretation Comments POC-GLUCOSE METER 99 mg/dL 70-110 : TESTED A T [facility] 6720 ([employer]) (test code = [facility], 1538) 26835: Poultry Husbandman/Techni ilir ID = [id number] for LATANYA KRISHNAMURTHY POCT-GLUCOSE [id number] 12:34:23 Test Item Value Reference Range Interpretation Comments POC-GLUCOSE METER 115 mg/dL 70-110 H : TESTED A T [facility] 6720 ([employer]) (test code = [facility], 1538) 18747: Poultry Husbandman/Techni ilir ID = [id number] for WI BROWN, JORDANANEJEROME 2D Echo W/Doppler(CW/PW/Color)2022-06-01 10:23:04Ejection FractionSLEH ECHO HEARTLAB MKCKESSON CPACSCHI [facility] Psdepp2K Echo W/Doppler(CW/PW/Color)2022-06-01 10:23:04Ejection FractionSLEH ECHO HEARTLAB PsychiatricMAGNESIUM2022-11-21 07:44:37 Test Item Value Reference Range Interpretation Comments MAGNESIUM (BEAKER) (test code = 1.9 mg/dL 1.6-2.6 627) Poultry Husbandman ID - MANPREET [id number] 07:44:37 Test Item Value Reference Range Interpretation Comments PHOSPHORUS (BEAKER) (test code = 3.5 mg/dL 2.3-4.7 604) Poultry Husbandman ID - MANPREET GBASIC METABOLIC [id number] 07:44:36 Test Item Value Reference Range Interpretation [...] not appl icable for dialysis patien ts Poultry Husbandman ID - MANPREET GPOCT-GLUCOSE [id number] 07:37:57 Test Item Value Reference Range Interpretation Comments POC-GLUCOSE METER 101 mg/dL 70-110 : TESTED A T [facility] 6720 (BEAKER) (test code = [place], 1538) 68492: Poultry Husbandman/Techni ilir ID = [id number] for LATANYA WALTER CBC W/PLT COUNT & AUTO [id number] 05:49:58 Test Item Value Reference Range Interpretation [...] PERCENT (BEAKER) (test code = 2801) POCT-GLUCOSE [id number] 22:17:39 Test Item Value Reference Range Interpretation Comments POC-GLUCOSE METER 103 mg/dL 70-110 : TESTED A T [facility] 6720 (BEAKER) (test code = [facility], 153) 06970: Poultry Husbandman/Techni ilir ID = [id number] for Misael ruiz (contract)Rishi POCT-GLUCOSE [id number] 17:17:44 Test Item Value Reference Range Interpretation Comments POC-GLUCOSE METER 109 mg/dL 70-110 : TESTED A T [facility] 6720 (BEAKER) (test code = [facility], 153) 52560: Poultry Husbandman/Techni ilir ID = [id number] for lauraEric beach POCT-GLUCOSE [id number] 11:56:56 Test Item Value Reference Range Interpretation Comments POC-GLUCOSE METER 112 mg/dL 70-110 H : TESTED A T [facility] 6720 (BEAKER) (test code = [facility], 153) 27834: Poultry Husbandman/Techni ilir ID = [id number] for HU NTER, HIWITHA CBC W/PLT COUNT & AUTO [id number] 08:34:37 Test Item Value Reference Range Interpretation [...] (test code = 2801) HIGH SENSITIVITY TROPONIN [id number] 07:20:15 Test Item Value Reference Range Interpretation Comments HIGH SENSITIVITY 10 pg/ml See_Comment [Automated message] TROPONIN I (test code = The system which [id number]) generated this result transmitted ref erence range: <=35. Th e reference range was not used to int erpret this result as normal/abnormal . Poultry Husbandman ID - MANPREET GThe LICENSED HOME INSPECTOR STAT High Sensitivity Troponin-I results should be used in conjunction with other diagnostic information such as ECG, clinical observations and information, and patient symptoms to aid in the diagnosis of AR.RAD, CHEST, 1 VIEW, NON [id number] 07:06:00Reason for exam:- >new chest painShould this be performed at the bedside?->Yes [facility] 1960 Sex: [...] Date/Time: 05/31/2022 07:06:21 , ABDOMEN/KUB, 1 VIEW [id number] 07:06:00Reason for exam:->new severe RLQ painShould this be performed at the bedside?->Yes [facility] 1960 Sex: MFINAL [...] [place] [facility] Verified Date/Time: 05/31/2022 07:06:21 -GLUCOSE [id number] 07:05:02 Test Item Value Reference Range Interpretation Comments POC-GLUCOSE METER 103 mg/dL 70-110 : TESTED A T [facility] 6720 (BEAKER) (test code = [place], 1538) 02180: Poultry Husbandman/Techni ilir ID = [id number] for PELON OLMSTEADWITHA [id number] 06:21:54 Test Item Value Reference Range Interpretation Comments PHOSPHORUS (BEAKER) (test code = 3.4 mg/dL 2.3-4.7 604) Poultry Husbandman ID - MANPREET GBASIC METABOLIC [id number] 06:21:53 Test Item Value Reference Range Interpretation [...] not appl icable for dialysis patien ts Poultry Husbandman ID - MANPREET [id number] 06:21:53 Test Item Value Reference Range Interpretation Comments MAGNESIUM (BEAKER) (test code = 1.5 mg/dL 1.6-2.6 L 627) Poultry Husbandman ID - MANPREET GCT, [id number] 23:26:00Unlisted Reason for Exam - Click Yes and Enter Reason Below->YesUnlisted Reason for Exam->epigastric and LUQ severe pain; history of prior colon cancer remotelyIs this for enterography?->NoPlease specify:->Pancreasspleen and GI tractWill this procedure require oral contrast?->Yes [facility] 1960 Sex: MFINAL [...] on a nonemergent basis. Signed: Erika Echavarria [facility] Verified Date/Time: 05/30/2022 23:26:03 PET/CT, CARDIAC PERF REST AND STRESS 2022-05-30 23:00:00Reason for exam:->cardiac screening, high CAD risk [facility] : 1960 Sex: MFINAL REPORT PROCEDURE: PET/CT Rest/Stress MYOCARDIAL PERFUSION with regadenoson\\XA9\\CPTCODE: [id number]: CADPROTOCOL: Limited low-dose CT imaging was performed [...] [place] [facility] Verified Date/Time: 05/30/2022 23:00:16 POCT-GLUCOSE [id number] 21:22:07 Test Item Value Reference Range Interpretation Comments POC-GLUCOSE METER 113 mg/dL 70-110 H : TESTED A T [facility] 6720 (SANAM) (test code = [place], 1538) [id number]: Poultry Husbandman/Techni ilir ID = [id number] for Ashley Hartmann SARS-COV2/RT-PCR ([facility])2022-05-30 17:11:48 Test Item Value Reference Range Interpretation Comments SARS-COV2/RT-PCR Negative Negative The SARS-Co V-2 target (test code = nucleic acids a re not [id number]) detected in thi s specimen. Negative result [...] sooner. Fact Sheet for Healthcare Providers: https://www.cepheid.co m/Documents/Xpert%20Xpress%20SARS%20CoV-2/Fact%20Sheets/302-5199%60XIWO-REM-2%20 HEALTHCARE%20PROVIDERS%20FACT%20SHEET.pdf Fact Sheet for Healthcare Patients: https://www.cepheid.com/Documents/Xpert%20Xp ress%20SARS%20CoV-2/Fact%20Sheets/302-3801%43WJGT-CAS-1%20PATIENT%20FACT%20SHEET .pdfPOCT-GLUCOSE [id number] 17:06:14 Test Item Value Reference Range Interpretation Comments POC-GLUCOSE METER 164 mg/dL 70-110 H : TESTED A T [facility] 6720 (BEAKER) (test code = [facility] Abelino [facility], 1538) [address]: Poultry Husbandman/Techni ilir ID = [id number] for Do hodge Eric POCT-GLUCOSE [id number] 08:05:36 Test Item Value Reference Range Interpretation Comments POC-GLUCOSE METER 96 mg/dL 70-110 : TESTED A T [facility] 6720 (BEAKER) (test code = [facility] Abelino [facility], 1538) [id number]: Poultry Husbandman/Techni ilir ID = [id number] for Gabriela payan Eric BASIC METABOLIC [id number] 05:09:47 Test Item Value Reference Range Interpretation [...] not appl icable for dialysis patien ts Poultry Husbandman ID - MANPREET [id number] 05:09:47 Test Item Value Reference Range Interpretation Comments MAGNESIUM (BEAKER) (test code = 1.6 mg/dL 1.6-2.6 627) Poultry Husbandman ID - MANPREET [id number] 05:09:47 Test Item Value Reference Range Interpretation Comments PHOSPHORUS (BEAKER) (test code = 3.7 mg/dL 2.3-4.7 604) Poultry Husbandman ID - MANPREET GCBC W/PLT COUNT & AUTO [id number] 04:50:40 Test Item Value Reference Range Interpretation [...] (BEAKER) (test code = 2801) Carotid doppler [id number] 21:49:59Ejection FractionSLEH ECHO HEARTLAB MKCKESSON [facility] Center[facility] [id number] 21:49:59Ejection FractionSLEH ECHO HEARTLAB [facility] CenterPOCT-GLUCOSE [id number] 21:16:22 Test Item Value Reference Range Interpretation Comments POC-GLUCOSE METER 118 mg/dL 70-110 H : TESTED A T [facility] 6720 (BEAKER) (test code = [place], 1538) [id number]: Poultry Husbandman/Techni ilir ID = [id number] for PE RALES, SUDHA CARCINOEMBRYONIC ANTIGEN (CEA)2022-05-29 17:38:23 Test Item Value Reference Range Interpretation Comments CARCINOEMBRYONIC ANTIGEN (BEAKER) 2.9 ng/mL 0.0-5.0 (test code = 685) Poultry Husbandman ID - BSALPHA FETOPROTEIN (AFP), TUMOR [id number] 17:38:23 Test Item Value Reference Range Interpretation Comments ALPHA-FETOPROTEIN (BEAKER) (test 4.7 ng/mL <10.0 code = 1094) Poultry Husbandman ID - BSPOCT-GLUCOSE [id number] 16:54:18 Test Item Value Reference Range Interpretation Comments POC-GLUCOSE METER 176 mg/dL 70-110 H : TESTED A T [facility] 6720 (BEAKER) (test code = [place], 1538) [address]: Poultry Husbandman/Techni ilir ID = [id number] for Aubrey Altamirano POCT-GLUCOSE [id number] 11:26:02 Test Item Value Reference Range Interpretation Comments POC-GLUCOSE METER 99 mg/dL 70-110 : TESTED A T [facility] 6720 (BEAKER) (test code = [place] [facility], 1538) [address]: Poultry Husbandman/Techni ilir ID = [id number] for Gabriela payan Eric CBC W/PLT COUNT & AUTO [id number] 10:23:04 Test Item Value Reference Range Interpretation [...] PERCENT (BEAKER) (test code = 2801) PROTHROMBIN TIME/[id number] 08:41:01 Test Item Value Reference Range Interpretation Comments PROTIME (BEAKER) 10.9 seconds 9.8-12.0 (test code = 759) INR (BEAKER) (test 0.99 See_Comment [Automat ed message] code = 370) The system dondeEsta™ generated this result transmitted ref erence range: <=5.90. The reference range was not used to int erpret this result as normal/abnormal . RECOMMENDED COUMADIN/WARFARIN INR THERAPY RANGESSTANDARD DOSE: 2.0 - 3.0 Includes: PROPHYLAXIS for venous thrombosis, systemic embolization; TREATMENT for venous thrombosis and/or pulmonary embolus.HIGH RISK: Target INR is 2.5-3.5 for patients with mechanical heart valves.POCT-GLUCOSE [id number] 07:36:23 Test Item Value Reference Range Interpretation Comments POC-GLUCOSE METER 98 mg/dL 70-110 : TESTED A T [facility] 6720 (BEAKER) (test code = KAYMI Aeblino [facility], 1538) [address]: Poultry Husbandman/Techni ilir ID = [id number] for Eric Renteria BASIC METABOLIC [id number] 06:13:40 Test Item Value Reference Range Interpretation [...] not appl icable for dialysis patien ts Poultry Husbandman ID - MANPREET [id number] 06:13:40 Test Item Value Reference Range Interpretation Comments MAGNESIUM (BEAKER) (test code = 1.7 mg/dL 1.6-2.6 627) Poultry Husbandman ID - MANPREET [id number] 06:13:40 Test Item Value Reference Range Interpretation Comments PHOSPHORUS (BEAKER) (test code = 3.1 mg/dL 2.3-4.7 604) Poultry Husbandman GALI Godoy
[2023-02-12 21:33] LABS: Absolute Lymphocytes (CBC) 3.7 K/uL (0.7-4.9); Hematocrit 41.9 % (39.6-49.0); Lymphocytes % 34.5 % (15.3-44.8); MCV 92.1 fL (80-100); MPV 7.8 fL (7.6-11.3); RBC Red Blood Cell Count 4.56 M/uL (4.33-5.43)
[2023-02-12 21:34] LABS: Protime INR 1.07
[2023-02-12] MEDS ORDERED: ONDANSETRON 4 MG/2 ML VIAL ONE (21:36)
[2023-02-12] MEDS ORDERED: FENTANYL CITR 100 MCG/2 ML ONE (21:36)
[2023-02-12] MEDS ORDERED: NA CHLORIDE 0.9% 1,000 ML ONE ×2 (21:36→22:50)
[2023-02-12 21:53] LABS: Albumin 3.6 g/dL (3.4-5.0); Bilirubin Direct 0.2 mg/dL (0-0.2); Bilirubin Indirect, Calculated 0.5 mg/dL (0.2-0.8); Bilirubin Total 0.7 mg/dL (0.2-1.0); Magnesium 1.9 mg/dL (1.6-2.4); Potassium 3.8 mEq/L (3.5-5.1); Troponin High Sensitivity 6.5 pg/mL (<58.9)
--- NOTE | 2023-02-12 22:10 | RAD REPORT ---
EXAM DESCRIPTION: CT - Abdomen Pelvis W Contrast - 02/12/2023 9:50 pm CLINICAL HISTORY: Abdominal pain/dysuria COMPARISON: 2011 and 2021 TECHNIQUE: Computed axial tomography of the abdomen pelvis was obtained. 100 cc Isovue-300 was admin istered intravenously. Oral contrast was not requested which limits evaluation of bowel and appendix All CT scans are performed using dose optimization technique as appropriate and may include automated exposure control or mA/KV adjustment according to patient size. FINDINGS: Liver, pancreas and adrenals are unremarkable. Bilateral renal cysts. No hydronephrosis. Splenic lesions unchanged likely benign There is no evidence of diverticulitis. 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
--- NOTE | 2023-02-12 22:12 | RAD REPORT ---
EXAM DESCRIPTION: Joshua Single View02/12/2023 9:57 pm CLINICAL HISTORY: Cough COMPARISON: February 11, 2001 FINDINGS: Calcified granuloma left lung. The lungs appear clear of acute infiltrate. The heart is normal size IMPRESSION: No acute abnormalities displayed
[2023-02-12 23:49] LABS: Urine Color Yellow (Yellow)
[2023-02-12 23:50] LABS: Specific Gravity > 1.030 (1.005-1.030); Urine Bilirubin NEGATIVE (Negative); Urine Blood Negative (Negative); Urine Clarity Turbid (Clear); Urine Glucose NEGATIVE (Negative); Urine Protein 1+ (Negative); Urine Urobilinogen 3+ mg/dL (0.2-1.0)
--- NOTE | 2023-02-12 23:51 | ER ---
Nurse's Notes [facility] Ihsan Name: Alexander Abraham Age: 62 yrs Sex: Male : 1960 Arrival Date: 02/12/2023 Time: 20:55 Bed 13 Private MD: Diagnosis: Low back pain;Muscle spasm of back;Dysuria;Constipation Presentation: 02/12 21:02 Chief complaint: EMS states: "toned out for lower back pain, difficulty urinating and mb9 burning with urination. Pt states back pain is on bilateral sides. Pt denies N/V". Coronavirus screen: Vaccine status: Patient reports receiving the 2nd dose of the covid vaccine. Ebola Screen: No symptoms or risks identified at this time. Initial Sepsis Screen: Does the patient meet any 2 criteria? No. Patient's initial sepsis screen is negative. Does the patient have a suspected source of infection? No. Patient's initial sepsis screen is negative. Risk Assessment: Do you want to hurt yourself or someone else? Patient reports no desire to harm self or others. Onset of symptoms was February 12, 2023. 21:02 Method Of Arrival: EMS: [facility] mb9 21:02 Acuity: NICOLASA 3 mb9 Triage Assessment: 21:04 General: Appears in no apparent distress. Behavior is calm, cooperative. Pain: mb9 Complains of pain in back Pain does not radiate. Neuro: Mcgee Agitation-Sedation Scale (RASS): 0 - Alert and Calm Level of Consciousness is awake, alert, obeys commands, Oriented to person, place, time, situation, Appropriate for age. Respiratory: Airway is patent Respiratory effort is even, unlabored, Respiratory pattern is regular, symmetrical. : Reports burning with urination. Derm: Skin is pink, warm \\T\\ dry. Historical: - Allergies: 21:04 Morphine; mb9 - Home Meds: 21:04 amlodipine oral [Active]; Metoprolol Tartrate Oral [Active]; mb9 - PMHx: 21:04 colon cancer; Hypertensive disorder; mb9 - PSHx: 21:04 heart cath; Colon; mb9 - Immunization history:: Adult Immunizations up to date. - Social history:: Smoking status: Patient reports the use of cigarette tobacco products, smokes one pack cigarettes per day. - Family history:: not pertinent. Screenin/05 00:17 [facility] ED Fall Risk Assessment (Adult) History of falling in the last 3 months, ha1 including since admission No falls in past 3 months (0 pts) Confusion or Disorientation No (0 pts) Intoxicated or Sedated No (0 pts) Impaired Gait Yes (1 pt) Mobility Assist Device Used Yes (1 pt) Altered Elimination No (0 pt) Score/Fall Risk Level 0 - 2 = Low Risk Oriented to surroundings, Maintained a safe environment, Educated pt \\T\\ family on fall prevention, incl call for assistance when getting out of bed. Abuse screen: Denies threats or abuse. Denies injuries from another. Nutritional screening: No deficits noted. Tuberculosis screening: No symptoms or risk factors identified. Assessment: 00:17 Reassessment: Patient and/or family updated on plan of care and expected duration. Pain ha1 level reassessed. Patient is alert, oriented x 3, equal unlabored respirations, skin warm/dry/pink. Vital Signs: 02/12 21:02 BP 126 / 82; Pulse 83; Resp 18; Temp 98.3(O); Pulse Ox 100% on R/A; Weight 81.65 kg; mb9 Height 5 ft. 7 in. ; Pain 8/10; 22:11 BP 121 / 79; Pulse 73; Resp 20; Pulse Ox 96% on R/A; ll3 21:02 Body Mass Index 28.19 (81.65 kg, 170.18 cm) mb9 21:02 Pain Scale: Adult mb9 [place] Coma Score: 21:06 Eye Response: spontaneous(4). Motor Response: obeys commands(6). Verbal Response: angela oriented(5). Total: 15. ED Course: 20:57 Patient arrived in ED. wm 20:58 Aric Prajapati MD is Attending Physician. angela 21:02 Arm band placed on. mb9 21:04 Triage completed. mb9 21:05 Placed in gown. Bed in low position. Call light in reach. Side rails up X 1. Client mb9 placed on continuous cardiac and pulse oximetry monitoring. NIBP monitoring applied. 21:23 Initial lab(s) drawn, by me, sent to lab. Inserted saline lock: 20 gauge in right ll3 antecubital area, using aseptic technique. Blood collected. 21:52 CT Abd/Pelvis - IV Contrast Only In Process Unspecified. EDMS 21:58 XRAY Chest (1 view) In Process Unspecified. EDMS 23:13 Urinalysis w/ reflexes Sent. ll3 02/13 00:18 Provided Education on: medication administration. ha1 00:18 No provider procedures requiring assistance completed. IV discontinued, intact, ha1 bleeding controlled, No redness/swelling at site. Pressure dressing applied. Administered Medications: 02/12 21:39 Drug: NS 0.9% IV 1000 ml Route: IV; Rate: 1 bolus; Site: right antecubital; ll3 23:13 Follow up: Response: No adverse reaction; IV Status: Completed infusion; IV Intake: ll3 1000ml 21:39 Drug: fentaNYL (PF) IVP 50 mcg Route: IVP; Site: right antecubital; ll3 23:13 Follow up: Response: No adverse reaction; Pain is decreased ll3 21:39 Drug: Ondansetron IVP 4 mg Route: IVP; Site: right antecubital; ll3 23:13 Follow up: Response: No adverse reaction ll3 22:55 Drug: NS 0.9% IV 1000 ml Route: IV; Rate: 1 bolus; Site: right antecubital; ll3 Medication: 21:05 VIS not applicable for this client. mb9 Intake: 23:13 IV: 1000ml; Total: 1000ml. ll3 Outcome: 23:50 Discharge ordered by . angela 02/13 00:18 Discharged to home via wheelchair. ha1 Condition: stable Discharge instructions given to patient, Instructed on discharge instructions, follow up and referral plans. medication usage, Demonstrated understanding of instructions, follow-up care, medications, Prescriptions given X 3. 00:19 Patient left the ED. ha1 Signatures: Dispatcher [employer] EDMS Aric Prajapati MD MD cha Marsh, Wendy wm Loubet, Lynsea, RN RN ll3 Louise Sky RN RN ha1 Sierra Ramirez RN RN mb9
--- NOTE | 2023-02-12 23:51 | EDPHYS ---
Physician Documentation [facility] Name: Alexander Souzarow Age: 62 yrs Sex: Male : 1960 Arrival Date: 02/12/2023 Time: 20:55 Bed 13 Private MD: BLAIR Physician Aric Prajapati HPI: 02/12 21:06 This 62 yrs old Male presents to ER via EMS with complaints of back pain, angela dark urine. 21:06 The patient complains of pain in the left low back, left mid back, right mid back and angela right low back. The pain does not radiate. Modifying factors: The symptoms are alleviated by nothing. the symptoms are aggravated by nothing. The patient presents with urinary symptoms, hesitancy to initiate urine stream, dark urine. Onset: The symptoms/episode began/occurred 3 day(s) ago. Modifying factors: The symptoms are alleviated by nothing, the symptoms are aggravated by nothing. The patient presents with pain that is acute, with no known mechanism of injury. The symptoms are located in the low back, left low back, left mid back, right mid back and right low back. Historical: - Allergies: 21:04 Morphine; mb9 - Home Meds: 21:04 amlodipine oral [Active]; Metoprolol Tartrate Oral [Active]; mb9 - PMHx: 21:04 colon cancer; Hypertensive disorder; mb9 - PSHx: 21:04 heart cath; Colon; mb9 - Immunization history:: Adult Immunizations up to date. - Social history:: Smoking status: Patient reports the use of cigarette tobacco products, smokes one pack cigarettes per day. - Family history:: not pertinent. ROS: 21:06 Constitutional: Negative for fever, chills, and weight loss, Eyes: Negative for injury, angela pain, redness, and discharge, ENT: Negative for injury, pain, and discharge, Neck: Negative for injury, pain, and swelling, Cardiovascular: Negative for chest pain, palpitations, and edema, Respiratory: Negative for shortness of breath, cough, wheezing, and pleuritic chest pain, Abdomen/GI: Negative for abdominal pain, nausea, vomiting, diarrhea, and constipation, : Negative for injury, bleeding, discharge, and swelling, MS/Extremity: Negative for injury and deformity, Skin: Negative for injury, rash, and discoloration, Neuro: Negative for headache, weakness, numbness, tingling, and seizure, Psych: Negative for depression, anxiety, suicide ideation, homicidal ideation, and hallucinations, Allergy/Immunology: Negative for hives, rash, and allergies, Endocrine: Negative for neck swelling, polydipsia, polyuria, polyphagia, and marked weight changes, Hematologic/Lymphatic: Negative for swollen nodes, abnormal bleeding, and unusual bruising. 21:06 Back: Positive for injury or acute deformity, decreased range of motion, of the left low back, left mid back, right mid back and right low back. Exam: 21:06 Constitutional: This is a well developed, well nourished patient who is awake, alert, angela and in no acute distress. Head/Face: Normocephalic, atraumatic. Eyes: Pupils equal round and reactive to light, extra-ocular motions intact. Lids and lashes normal. Conjunctiva and sclera are non-icteric and not injected. Cornea within normal limits. Periorbital areas with no swelling, redness, or edema. ENT: Nares patent. No nasal discharge, no septal abnormalities noted. Tympanic membranes are normal and external auditory canals are clear. Oropharynx with no redness, swelling, or masses, exudates, or evidence of obstruction, uvula midline. Mucous membranes moist. Neck: Trachea midline, no thyromegaly or masses palpated, and no cervical lymphadenopathy. Supple, full range of motion without nuchal rigidity, or vertebral point tenderness. No Meningismus. Chest/axilla: Normal chest wall appearance and motion. Nontender with no deformity. No lesions are appreciated. Cardiovascular: Regular rate and rhythm with a normal S1 and S2. No gallops, murmurs, or rubs. Normal PMI, no JVD. No pulse deficits. Respiratory: Lungs have equal breath sounds bilaterally, clear to auscultation and percussion. No rales, rhonchi or wheezes noted. No increased work of breathing, no retractions or nasal flaring. Abdomen/GI: Soft, non-tender, with normal bowel sounds. No distension or tympany. No guarding or rebound. No evidence of tenderness throughout. Skin: Warm, dry with normal turgor. Normal color with no rashes, no lesions, and no evidence of cellulitis. MS/ Extremity: Pulses equal, no cyanosis. Neurovascular intact. Full, normal range of motion. Neuro: Awake and alert, GCS 15, oriented to person, place, time, and situation. Cranial nerves II-XII grossly intact. Motor strength 5/5 in all extremities. Sensory grossly intact. Cerebellar exam normal. Normal gait. Psych: Awake, alert, with orientation to person, place and time. Behavior, mood, and affect are within normal limits. 21:06 Back: pain, that is moderate, ROM is painful, with all movement, normal spinal alignment noted, CVA tenderness, is absent, muscle spasm, is appreciated in the left low back, left mid back, right mid back and right low back. 21:44 ECG was reviewed by the Attending Physician. [facility] Vital Signs: 21:02 BP 126 / 82; Pulse 83; Resp 18; Temp 98.3(O); Pulse Ox 100% on R/A; Weight 81.65 kg; mb9 Height 5 ft. 7 in. ; Pain 8/10; 22:11 BP 121 / 79; Pulse 73; Resp 20; Pulse Ox 96% on R/A; ll3 21:02 Body Mass Index 28.19 (81.65 kg, 170.18 cm) mb9 21:02 Pain Scale: Adult mb9 [place] Coma Score: 21:06 Eye Response: spontaneous(4). Motor Response: obeys commands(6). Verbal Response: angela oriented(5). Total: 15. MDM: 20:58 Patient medically screened. [facility] 21:09 Differential diagnosis: nephrolithiasis, pyelonephritis, UTI, diverticulitis, ruptured angela AAA, dissecting AAA, nonspecific abdominal pain, appendicitis, UTI, urinary retention, urethritis. Data reviewed: vital signs, nurses notes, lab test result(s), EKG, radiologic studies, CT scan, plain films. Consideration of Admission/Observation Escalation of care including admission/observation considered. I considered the following discharge prescriptions or medication management in the emergency department Medications were administered in the Emergency Department. See MAR. Test considered but Not performed: Ultrasound no renal usg. 02/12 21: Order name: Basic Metabolic Panel; Complete Time: 22:04 [facility] 02/12 21: Order name: CBC with Diff; Complete Time: 22:04 [facility] 02/12 21: Order name: LFT's; Complete Time: 22:04 02/12 21:02 Order name: Magnesium; Complete Time: 22:04 angela 02/12 21:02 Order name: NT PRO-BNP; Complete Time: 22:04 angela 02/12 21:02 Order name: PT-INR; Complete Time: 22:04 angela 02/12 21:02 Order name: Troponin HS; Complete Time: 22:04 02/12 21:02 Order name: Urinalysis w/ reflexes; Complete Time: 00:01 02/12 21:02 Order name: Lipase; Complete Time: 22:04 angela 02/12 21:02 Order name: XRAY Chest (1 view); Complete Time: 22:17 02/12 21:02 Order name: CT Abd/Pelvis - IV Contrast Only; Complete Time: 22:17 [facility] 02/12 21:02 Order name: EKG; Complete Time: 21:03 [facility] 02/12 21:02 Order name: Cardiac monitoring; Complete Time: 21:39 02/12 21:02 Order name: EKG - Nurse/Tech; Complete Time: 21:39 [facility] 02/12 21:02 Order name: IV Saline Lock; Complete Time: 21:23 angela 02/12 21:02 Order name: Labs collected and sent; Complete Time: 21:23 02/12 21:02 Order name: O2 Per Protocol; Complete Time: 21:23 [facility] 02/12 21:02 Order name: O2 Sat Monitoring; Complete Time: 21:23 [facility] 02/12 22:19 Order name: Misc. Order: get ua; Complete Time: 23:13 angela EC:44 Rate is 77 beats/min. Rhythm is regular. QRS [place] is Normal. ID interval is normal. QRS angela interval is normal. QT interval is normal. No Q waves. T waves are Normal. No ST changes noted. Clinical impression: NSR w/ Non-specific ST/T Changes and No evidence of ischemia. Interpreted by me. Reviewed by me. Administered Medications: 21:39 Drug: NS 0.9% IV 1000 ml Route: IV; Rate: 1 bolus; Site: right antecubital; ll3 23:13 Follow up: Response: No adverse reaction; IV Status: Completed infusion; IV Intake: ll3 1000ml 21:39 Drug: fentaNYL (PF) IVP 50 mcg Route: IVP; Site: right antecubital; ll3 23:13 Follow up: Response: No adverse reaction; Pain is decreased ll3 21:39 Drug: Ondansetron IVP 4 mg Route: IVP; Site: right antecubital; ll3 23:13 Follow up: Response: No adverse reaction ll3 22:55 Drug: NS 0.9% IV 1000 ml Route: IV; Rate: 1 bolus; Site: right antecubital; ll3 Disposition Summary: 02/12/23 23:50 Discharge Ordered Location: Home [facility] Problem: new angela Symptoms: have improved angela Condition: Stable angela Diagnosis - Low back pain angela - Muscle spasm of back angela - Dysuria angela - Constipation angela Followup: angela - With: Private Physician - When: 2 - 3 days - Reason: Recheck today's complaints, Continuance of care, Re-evaluation by your physician Discharge Instructions: - Discharge Summary Sheet angela - Acute Back Pain, Adult angela - Chronic Back Pain angela - Dysuria angela - Muscle Cramps and Spasms angela - Musculoskeletal Pain angela - Back Injury Prevention, Guwd-cc-[id number] angela - Chronic Back Pain, Swvv-ks-Bqly [facility] Forms: - Medication Reconciliation Form [facility] - Thank You Letter [facility] - Antibiotic Education angela - Prescription Opioid Use [facility] - Patient Portal Instructions [facility] Prescriptions: - Flomax 0.4 mg Oral capsule - take 1 capsule by ORAL route every 24 hours; 30 capsule; Refills: 0, Product [facility] Selection Permitted - acetaminophen-codeine 300-30 mg Oral tablet - take 2 tablet by ORAL route every 6 hours; 20 tablet; Refills: 0, Product [facility] Selection Permitted - Lactulose 10 gram/15 mL Oral Solution - take 30 milliliters by ORAL route once daily; 300 milliliter; Refills: 0, [facility] Product Selection Permitted Signatures: Dispatcher [employer] Aric Sheppard MD MD cha Loubet, Lynsea RN RN ll3 Sierra Ramirez RN RN mb9
[2023-02-13 01:32] VITALS: TEMP 98.3
[2023-02-13 01:33] VITALS: BP 121/79; O2SAT 96
--- NOTE | 2023-02-15 13:07 | EKG ---
Test Date: 2023-02-12 Test Time: 21:31:10 Post Doctoral Fellow: TYE MEASUREMENT RESULTS: Intervals: Rate: 77 WA: 160 QRSD: 126 QT: 414 QTc: 468 Mode: P: 70 WA: 160 QRS: 90 T: 67 INTERPRETIVE STATEMENTS: Normal sinus rhythm Right bundle branch block Abnormal ECG Compared to ECG 02/11/2023 07:50:59 No significant changes Electronically Signed On 02-15-23 13:05:23 CDT by David Mtz
== END 2023-02-13 00:19 | disposition home or self-care (01) ==
LOC: ER 20:55
DX: M62.830 Muscle spasm of back (principal); R30.0 Dysuria; K59.00 Constipation, unspecified; F17.210 Nicotine dependence, cigarettes, uncomplicated; Z88.5 Allergy status to narcotic agent
CPT/HCPCS: 36415; 71045; 74177; 80048; 80076; 83690; 83735; 83880; 84484; 85025; 85610; 93005; 96361; 96374; 96375; 99284; J2405; J3010; J7030; Q9967

== ENCOUNTER 2023-02-15 14:01 | Emergency (ER) | payer SELFPAY ==
--- OUTSIDE RECORDS SUMMARY | 2023-02-15 14:10 | XMS REPORT | Continuity of Care Document ---
:1960 Author Organization [facility] t Address [address] [place] [address] [place] [id number] Care Team Providers Name Role Phone ANICETO TA Attending Clinician Unavailable Daniel AHMADI, Syeda Martinez Attending Clinician Aniceto Ta MD Attending Clinician Kirsten AHMADI, Alexis [place] Attending Clinician Teja Bateman MD Attending Clinician Bryan Guo MD Attending Clinician Arin Quezada MD Attending Clinician [phone] BRYAN ESQUIVEL Attending Clinician Unavailable Cristóbal AHMADI, Merissa Arizmendi Attending Clinician [phone] Bryan Esquivel MD Attending Clinician Billie [...] [facility] 00 [place] Coronary Coronary Disease [facility] disease disease 00:00: Medical involving involving 00 Cent er paimiut paimiut coronary coronary artery artery Hypertensi Hypertensi Disease Active 2021-[address] [facility] on 08[facility]01 [facility] 00 [place] HLD HLD Disease Active 2021-[address] [facility] [address] (hyperlipi (hyperlipi 08-01 Jada kes demia) demia) 00:00: Medical 00 [place] Smoker Smoker Disease Active 2021-[address] [facility] [facility] 00 [place] Thrombocyt Thrombocyt Disease Active 2021-[address] openia openia 08-01 [facility] 00:[facility]: Medical 00 [place] Cellulitis Cellulitis Disease Active 2021-[address] of back of back 08-01 [facility] except except 00:00: Medical buttock buttock 00 Center Epigastric Epigastric Disease Active 2021-[address] pain pain 08-01 [facility] 00:[facility]: Medical 00 [place] Deconditio Deconditio Disease Active 2021-[address] jodie low jodie low 08-01 [facility] back back 00:00: Medical 00 [place] Frail Frail Disease Active 2021-[address] [facility] elderly elderly 08-01 [facility] 00:[facility]: Medical 00 [place] Other Other Disease Active 2021-[address] [facility] [facility] chest pain chest pain 08-01 Jada kes 00:00: Medical 00 [place] Paresthesi Paresthesi Disease Active 2021-[address] as with as with 08-01 [facility] subjective subjective 00:00: Me dical weakness weakness 00 [place] History of History of Disease Active 2021-[address] colon colon 08-01 [facility] cancer cancer 00:00: Medical 00 [place] Adynamic Adynamic Disease Active 2021-[facility] ileus ileus [facility] Medical 00 [place] Weight Weight Disease Active 2021-[address] [facility] loss, loss, 08-01 [facility] unintentio unintentio 00:00: Me dical nal nal 00 [place] (Ambrocio) (Ambrocio) Disease Active 2021-07 [facility] [...] Date Stop Date Quantity Comments Source History [facility] History [facility] 2022-06-19 2022-06-[address] [facility] Transport Med 00:00:00 00:00:[address] [facility] Housing 2022-06-19 2022-06-[address] [facility] Unable to Pay 00:00:00 00:00:[address] History [facility] Housing 2022-06-19 2022-06-[address] [facility] Places Lived 00:00:00 00:00:00 Medical Cent er History [facility] Housing 2022-06-19 2022-06-[address] [facility] Homeless Last Year 00:00:00 [facility] [place] Exposure to 2022-05-19 2022-05-[address] [facility] SARS-CoV-2 (event) 00:00:00 01:39:00 [facility] [place] Cigarettes smoked 2022-05-29 2022-05-[address] [facility] current (pack per 00:00:00 00:00:00 Medical Center day) - Reported Tobacco use and 2022-05-29 2022-05-[address] [facility] Jada kes exposure 00:00:00 00:00:00 [facility] Center Sex Assigned At [birth year] [facility] St Jada kes 00:00:00 00:00:00 Medical Center [...] [facility] 10 MG 19:13: daily. Medical tablet [address] [place] [address] enalapril Yes 10mg QD Take 10 mg [...] [facility] sod 1-05 tablet by [facility] selenate-co 00:00: mouth Medic al pper 00 daily. [place] (Prosight) 5,000-60-30 unit-mg-uni t Tab enoxaparin Yes [...] edical 17 gram 00 :00 3 days. [place] packet insulin 2023- No 0U Inject 0-8 [...] for 30 days. cyclobenzap 2022- No 5mg [id number] Take [address] rine 07-15 [id number] tablet (5 [place] es (FLEXERIL) 00:00: 23:59 [...] mouth Center nightly. gabapentin 2021-07- No 300mg [id number] Take [address] (NEURONTIN) 08-08- [id number] capsule [facility] 300 MG 00:00: 00:00 3D (300 mg Medical capsule 00 :00 total) by Center mouth 3 (three) times daily. gabapentin 2021-07- No 300mg [id number] Take [address] (NEURONTIN) 08-08- [id number] capsule [facility] 300 MG 00:00: 00:00 3D [...] cm Systolic blood 2022-07-24 16:00:00 131 mm[Hg] [facility] Diastolic blood 2022-07-24 16:00:00 80 mm[Hg] [facility] Heart rate 2022-07-24 16:00:00 78 /min [facility] Body temperature 2022-07-24 16:00:00 36.28 Caprice [facility] Respiratory rate 2022-07-24 16:00:00 18 /min [facility] Oxygen saturation in 2022-07-24 16:00:00 98 /min [facility] Arterial blood by Medical Ce nter Pulse oximetry Body weight 2022-07-19 07:20:00 72.1 kg [facility] BMI 2022-07-19 07:20:00 24.17 kg/m2 [facility] Body height 2022-06-19 00:24:00 172.7 cm [facility] Systolic blood 2022-06-09 15:22:00 137 mm[Hg] [facility] Diastolic blood 2022-06-09 15:22:00 98 mm[Hg] [facility] Heart rate 2022-06-09 15:22:00 85 /min [facility] Body temperature 2022-06-09 15:22:00 36.5 Caprice [facility] Respiratory rate 2022-06-09 15:22:00 18 /min [facility] Oxygen saturation in 2022-06-09 15:22:00 98 /min [facility] Arterial blood by Medical Ce nter Pulse oximetry Body weight 2022-06-07 07:29:00 67.7 kg [facility] BMI 2022-06-07 07:29:00 22.69 kg/m2 [facility] Body height 2022-05-29 01:00:00 172.7 cm [facility] Procedures Procedure Date / Time Performing Clinician Source Performed BASIC METABOLIC PANEL 2022-07-24 12:46:00 Yaz Smith [facility] ELECTROLYTES 2022-07-21 12:14:[address] [facility] POCT-GLUCOSE METER 2022-07-21 11:34:00 Cristy [facility] POCT-GLUCOSE METER 2022-07-21 08:14:00 Cristy [facility] POCT-GLUCOSE METER 2022-07-20 17:20:00 Ta [facility] POCT-GLUCOSE METER 2022-07-20 12:43:00 [facility] POCT-[facility]UCOSE METER 2022-07-20 08:30:00 Cristy [facility] SARS-COV2/RT-PCR ([facility] & 2022-07-20 05:41:00 Cristy [facility] POCT-GLUCOSE METER 2022-07-19 21:16:00 Ta Aniceto [facility] POCT-GLUCOSE METER 2022-07-19 18:30:00 Ta, [facility] POCT-GLUCOSE METER 2022-07-19 07:52:00 Ta, [facility] BASIC METABOLIC PANEL 2022-07-19 05:46:00 Bhavana [facility] POCT-GLUCOSE METER 2022-07-18 21:53:00 Ta [facility] POCT-GLUCOSE METER 2022-07-18 17:01:00 Ta [facility] POCT-GLUCOSE METER 2022-07-18 12:55:00 Ta, [facility] POCT-GLUCOSE METER 2022-07-18 07:53:00 [facility] BASIC METABOLIC PANEL 2022-07-18 05:50:00 Bhavana [facility] CBC W/PLT COUNT & AUTO 2022-07-18 05:50:00 Bhavana [facility] CBC W/PLT COUNT & AUTO 2022-07-18 05:50:00 Bhavana [facility] POCT-GLUCOSE METER 2022-07-17 21:40:00 Cristy [facility] POCT-GLUCOSE METER 2022-07-17 17:22:00 Cristy [facility] POCT-GLUCOSE METER 2022-07-17 12:44:00 Ta [facility] POCT-GLUCOSE METER 2022-07-17 08:07:00 [facility] BASIC MET[facility]OLIC PANEL 2022-07-17 05:41:00 Bhavana [facility] POCT-GLUCOSE METER 2022-07-16 21:19:00 Ta [facility] POCT-GLUCOSE METER 2022-07-16 17:48:00 Ta, [facility] POCT-GLUCOSE METER 2022-07-16 12:52:00 Ta [facility] POCT-GLUCOSE METER 2022-07-16 08:25:00 [facility] BASIC METABOLIC PANEL 2022-07-16 03:41:00 Bhavana [facility] CBC W/PLT COUNT & AUTO 2022-07-16 03:41:00 Bhavana [facility] CBC W/PLT COUNT & AUTO 2022-07-16 03:41:00 Bhavana [facility] POCT-GLUCOSE METER 2022-07-15 21:44:00 Ta [facility] POCT-GLUCOSE METER 2022-07-15 16:43:00 [facility] CORTISOL,60 MIN 2022-07-15 12:23:00 Dexter [facility] POCT-GLUCOSE METER 2022-07-15 11:58:00 [facility] CORTISOL,30 MIN 2022-07-15 11:49:00 Dexter [facility] ACTH STIMULATION 2022-07-15 10:04:00 Dexter [facility] CORTISOL,BASELINE 2022-07-15 10:04:00 Leonel Renteria [facility] POCT-GLUCOSE METER 2022-07-15 08:19:00 Cristy [facility] D-DIMER 2022-07-15 04:51:00 [facility]OL[facility]EL 2022-07-15 04:50:00 Bhavana [facility] POCT-GLUCOSE METER 2022-07-14 21:42:00 [facility] POCT-GLUCOSE METER 2022-07-14 17:39:00 [facility] POCT-GLUCOSE METER 2022-07-14 12:52:00 Ta [facility] XR CHEST 1 VIEW PORTABLE / 2022-07-14 11:27:00 Aniceto Ta [facility] POCT-GLUCOSE METER 2022-07-14 09:50:00 Cristy Aniceto [facility] POCT-GLUCOSE METER 2022-07-14 08:21:00 [facility] BASIC METABOLIC PANEL 2022-07-14 05:38:00 Bhavana [facility] [facility] CBC W/PLT COUNT & AUTO 2022-07-14 05:38:00 [facility] 2022-07-14 05:38:00 Dexter [facility] CBC W/PLT COUNT & AUTO 2022-07-14 05:38:00 Bhavana [facility] POCT-GLUCOSE METER 2022-07-13 21:53:00 Aniceto Ta [facility] POCT-GLUCOSE METER 2022-07-13 17:18:00 Bhavana [facility] BASIC METABOLIC PANEL 2022-07-13 17:02:00 Dexter [facility] SARS-COV2/RT-PCR ([facility] & 2022-07-13 14:59:00 Cristy Aniceto [facility] POCT-GLUCOSE METER 2022-07-13 12:10:00 Bhavana [facility] POCT-GLUCOSE METER 2022-07-13 08:25:00 Bhavana [facility] BASIC METABOLIC PANEL 2022-07-13 04:04:00 [facility] POCT-GLUCOSE METER 2022-07-12 21:13:00 [facility]SE [facility]ER 2022-07-12 17:54:00 [facility] POCT-GLUCOSE METER 2022-07-12 12:19:00 [facility] POCT-GLUCOSE METER 2022-07-12 07:42:00 Bhavana [facility] CBC W/PLT COUNT & AUTO 2022-07-12 05:12:00 Bhavana [facility] BASIC METABOLIC PANEL 2022-07-12 05:12:00 Bhavana [facility] CBC W/PLT COUNT & AUTO 2022-07-12 05:12:00 Bhavana [facility] POCT-GLUCOSE METER 2022-07-11 21:20:00 [facility]UCOSE METER 2022-07-11 17:37:00 Bhavana [facility] POCT-GLUCOSE METER 2022-07-11 12:22:00 [facility] POCT-GLUCOSE METER 2022-07-11 07:33:00 Bhavana [facility] CBC W/PLT COUNT & AUTO 2022-07-11 04:06:00 Bhavana [facility] BASIC METABOLIC PANEL 2022-07-11 04:06:00 [facility] CORTISOL 2022-07-11 04:06:00 Luis [facility] CBC W/PLT COUNT & AUTO 2022-07-11 04:06:00 Hbavana [facility] POCT-GLUCOSE METER 2022-07-10 17:46:00 [facility] POCT-GLUCOSE METER 2022-07-10 11:31:00 [facility] POCT-GLUCOSE METER 2022-07-10 07:22:00 [facility] SODIUM NA-STAT LAB 2022-07-10 05:56:00 Luis [facility] CBC W/PLT COUNT & AUTO 2022-07-10 05:32:00 Bhavana, [facility] BASIC METABOLIC PANEL 2022-07-10 05:32:00 Bhavana [facility] URIC ACID 2022-07-10 05:32:00 Luis [facility] CBC W/PLT COUNT & AUTO 2022-07-10 05:32:00 Bhavana [facility] POCT-GLUCOSE METER 2022-07-09 21:09:00 Bhavana [facility] OSMOLALITY, SERUM 2022-07-09 13:35:00 Luis [facility] OSMOLALITY, URINE 2022-07-09 13:30:00 Luis [facility] SODIUM, RANDOM URINE 2022-07-09 13:30:00 Luis Yaz Guajardoodalys I [facility] CHLORIDE, RANDOM URINE 2022-07-09 13:30:00 Luis [facility] POCT-GLUCOSE METER 2022-07-09 11:08:00 Bhavana [facility] POCT-GLUCOSE METER 2022-07-09 07:22:00 Bhavana [facility] CBC W/PLT COUNT & AUTO 2022-07-09 03:54:00 Bhavana [facility] BASIC METABOLIC PANEL 2022-07-09 03:54:00 Bhavana [facility] CBC W/PLT COUNT & AUTO 2022-07-09 03:54:00 Bhavana [facility] POCT-GLUCOSE METER 2022-07-08 21:12:00 Bhavana [facility] POCT-GLUCOSE METER 2022-07-08 17:24:00 Bhavana [facility] POCT-GLUCOSE METER 2022-07-08 11:01:00 [facility] POCT-GLUCOSE METER 2022-07-08 07:21:00 Bhavana [facility] CBC W/PLT COUNT & AUTO 2022-07-08 03:50:00 Bhavana [facility] BASIC METABOLIC PANEL 2022-07-08 03:50:00 Bhavana [facility] CBC W/PLT COUNT & AUTO 2022-07-08 03:50:00 Bhavana [facility] POCT-GLUCOSE METER 2022-07-07 21:14:00 Bhavana [facility] POCT-GLUCOSE METER 2022-07-07 17:14:00 Bhavana [facility] POCT-GLUCOSE METER 2022-07-07 11:38:00 Bhavana, [facility] POCT-GLUCOSE METER 2022-07-07 08:09:00 Ta [facility] POCT-GLUCOSE METER 2022-07-06 20:41:00 Ta [facility] POCT-GLUCOSE METER 2022-07-06 16:52:00 Ta, [facility] POCT-GLUCOSE METER 2022-07-06 11:49:00 Ta, [facility] SARS-COV2/RT-PCR ([facility] & 2022-07-06 10:42:00 Ta [facility] POCT-GLUCOSE METER 2022-07-06 07:34:00 Ta, [facility] POCT-GLUCOSE METER 2022-07-05 21:49:00 Ta, [facility] POCT-GLUCOSE METER 2022-07-05 17:54:00 Ta, [facility] POCT-GLUCOSE METER 2022-07-05 11:47:00 Ta, [facility] POCT-GLUCOSE METER 2022-07-05 07:58:00 Ta, [facility] POCT-GLUCOSE METER 2022-07-04 21:23:00 Ta, [facility] POCT-GLUCOSE METER 2022-07-04 17:43:00 Ta, Aniceto [facility] POCT-GLUCOSE METER 2022-07-04 11:54:00 Ta, [facility] POCT-GLUCOSE METER 2022-07-04 07:53:00 Ta, Anicetofaviola [facility] COPPER 2022-07-04 04:10:00 Ta, [facility] 2022-07-04 04:09:00 Ta, [facility] POCT-GLUCOSE METER 2022-07-03 20:29:00 Ta, Anicetofaviola [facility]oc [facility] POCT-GLUCOSE METER 2022-07-03 17:51:00 Ta, [facility] POCT-GLUCOSE METER 2022-07-03 12:19:00 Ta, [facility]aviola [facility] POCT-GLUCOSE METER 2022-07-03 08:20:00 Ta, Anicetofaviola [facility] BASIC METABOLIC PANEL 2022-07-03 05:42:00 Alexis Curtis [facility] POCT-GLUCOSE METER 2022-07-02 20:46:00 Ta, [facility] POCT-GLUCOSE METER 2022-07-02 17:22:00 Ta, Aniceto [facility] POCT-GLUCOSE METER 2022-07-02 11:37:00 Ta, Aniceto Danny [facility] POCT-GLUCOSE METER 2022-07-02 07:48:00 Ta, Aniceto Danny [facility] POCT-GLUCOSE METER 2022-07-01 21:31:00 Ta, Aniceto Danny [facility] POCT-GLUCOSE METER 2022-07-01 17:29:00 Ta, Aniceto Danny [facility] POCT-GLUCOSE METER 2022-07-01 12:56:00 Ta, Aniceto Danny [facility] POCT-GLUCOSE METER 2022-07-01 07:21:00 Ta, Aniceto Delgado [facility] POCT-GLUCOSE METER 2022-06-30 22:02:00 Kirsten Alexis [facility] POCT-GLUCOSE METER 2022-06-30 17:54:00 Kirsten [facility] POCT-GLUCOSE METER 2022-06-30 11:50:00 Kirsten [facility] POCT-GLUCOSE METER 2022-06-30 07:37:00 Kirsten Alexis [facility] BASIC METABOLIC PANEL 2022-06-30 03:30:00 Duc [facility] POCT-GLUCOSE METER 2022-06-29 21:44:00 Kirsten [facility] POCT-GLUCOSE METER 2022-06-29 18:07:00 Duc [facility] SARS-COV2/RT-PCR ([facility] & 2022-06-29 16:48:00 Aniceto Ta [facility] REF LABS) [facility] PARANEOPLAS AB SCR,IFA,CSF 2022-06-29 16:47:00 Garcia [facility] AQP4 AB (IGG), SCREEN, CSF 2022-06-29 16:47:00 Jose [facility] AQP4 AB (IGG),TITER,CSF 2022-06-29 16:47:00 Garcia [facility] PHOENIX-3 AB, IFA TITER, CSF 2022-06-29 16:47:00 Garcia, [facility] BUILDING APPRAISER-2 AB, TITER, CSF 2022-06-29 16:47:00 [facility], [facility] PARANEOPLASTIC AB, LB, CSF 2022-06-29 16:47:00 [facility],CBA,IFA,CSF 2022-06-29 16:47:00 Garcia [facility] PARANEOPLASTIC, NMDAR1 2022-06-29 16:47:00 Garcia, [facility] PARANEOPLASTIC, AMPAR1 2022-06-29 16:47:00 Garcia, [facility] PARANEOPLASTIC, AMPAR2 2022-06-29 16:47:00 Garcia, [facility] PARANEOPLASTIC, GABABR 2022-06-29 16:47:00 Garcia, [facility] PARANEOPLASTIC, LGI1 2022-06-29 16:47:00 Garcia, [facility] PARANEOPLASTIC, CASPR2 2022-06-29 16:47:00 Garcia, [facility] VGKC ANTIBODY, CSF 2022-06-29 16:47:00 Garcia, [facility] PARANEOPLASTIC AB EVAL W/ 2022-06-29 16:47:00 Garcia, [facility] REFLEX TITER & LB, CSF [facility] C enter ANGIOTENSIN CONVERTING 2022-06-29 16:47:00 Joe Arciniega [facility] Romain [facility] ENZYME (CARROL) [facility] HTLV 1/2 ANTIBODY 2022-06-29 16:47:00 Joe Arciniega [facility] IMMUNOGLOBULINS PANEL, CSF 2022-06-29 16:46:00 Garcia, Miki [facility] ([facility]) [facility] GLUCOSE, CSF 2022-06-29 16:41:00 Garcia, [facility] PROTEIN, CSF 2022-06-29 16:41:00 Garcia, [facility] CSF CELL COUNT 2022-06-29 16:41:00 Garcia, [facility] W/[facility] VDRL, CSF 2022-06-29 16:41:00 Garcia, [facility] ALBUMIN, CSF 2022-06-29 16:41:00 Garcia, [facility] AQUAPORIN-4 (AQP4)(NMO-IGG) 2022-06-29 16:41:00 Garica, [facility] ANTIBODY WITH REFLEX TO Medical Center TITER, CF OLIGOCLONAL BANDS 2022-06-29 16:39:00 Garcia, [facility] PROTEIN ELECTROPHORESIS, 2022-06-29 16:39:00 Garcia, [facility] IGG INDEX (CSF + BLOOD) 2022-06-29 16:39:00 Garcia, [facility] PROTEIN, CSF 2022-06-29 16:39:00 Garcia, [facility] PROTEIN ELECTROPHORESIS, 2022-06-29 16:39:00 Garcia, [facility] CSF CULTURE + GRAM STAIN 2022-06-29 16:38:00 Garcia, [facility] POCT-GLUCOSE METER 2022-06-29 12:33:00 Alexis Curtis [facility] CBC W/PLT COUNT & AUTO 2022-06-29 03:05:00 Alexis Curtis [facility] BASIC METABOLIC PANEL 2022-06-29 03:05:00 Kirsten Alex[facility] CBC W/PLT COUNT & AUTO 2022-06-29 03:05:00 Alexis Curtis [facility] POCT-GLUCOSE METER 2022-06-28 21:52:00 Alexis Curtis yovani [facility] POCT-GLUCOSE METER 2022-06-28 11:47:00 Alexis Curtis [facility] POCT-GLUCOSE METER 2022-06-28 07:42:00 Alexis Cutris [facility] POCT-GLUCOSE METER 2022-06-27 20:56:00 Alexis Curtis yovani [facility] POCT-GLUCOSE METER 2022-06-27 16:47:00 Alexis Curtis yovani [facility] POCT-GLUCOSE METER 2022-06-27 12:16:00 Alexis Curtis [facility] POCT-GLUCOSE METER 2022-06-27 08:30:00 Alexis Curtisgisselle [facility] POCT-GLUCOSE METER 2022-06-26 23:54:00 Kirsten Alexis [place] [facility] COPPER 2022-06-26 10:38:00 Joe Arciniega, Lynne [facility] CBC W/PLT COUNT & AUTO 2022-06-26 05:31:00 Cristy [facility] BASIC METABOLIC PANEL 2022-06-26 05:31:[address] [facility] MAGNESIUM 2022-06-26 05:31:00 [facility] W/[facility]T [facility] & AUTO 2022-06-26 [facility]:31[facility] WITH REFLEX 2022-06-25 16:53:00 Jose, [facility] SJOGREN'S ANTIBODIES 2022-06-25 16:53:00 Jose, [facility] MISCELLANEOUS LAB ORDER 2022-06-25 16:52:00 Jose, [facility] 2D ECHO W/ DOPPLER 2022-06-25 13:56:31 Jose, [facility] (CW/PW/COLOR) [facility] MR LUMBAR SPINE WITH & 2022-06-24 12:39:00 Kirsten Alexis [place] [facility] WITHOUT IV CONTRAST Medical Cent er MR THORACIC SPINE WITH & 2022-06-24 12:39:00 KirstenDanielledori [place] [facility] WITHOUT IV CONTRAST Medical Cent er CTA BRAIN 2022-06-23 13:45:00 Jose, [facility] CTA CAROTID 2022-06-23 13:45:00 Jose, [facility] RPR 2022-06-23 11:40:00 Jose, [facility] HEMOGLOBIN A1C 2022-06-23 11:40:00 Jose, [facility] TSH/FREE T4 IF INDICATED 2022-06-23 11:40:00 [facility] METH[facility] 2022-06-23 11:40:00 [facility] BASIC METABOLIC PANEL 2022-06-23 03:53:00 Kirsten Alexis [facility] LIPID PANEL 2022-06-23 03:53:00 Jose [facility] MR BRAIN WITH & WITHOUT IV 2022-06-22 20:25:00 Kirsten Alexis yasmeen pitts [facility] CONTRAST [facility] Center MR CERVICAL SPINE WITH & 2022-06-22 20:25:00 [facility] WITHOUT IV CONTRAST Medical Cent er SARS-COV2/RT-PCR ([facility] & 2022-06-22 09:36:00 Aniceto Ta [facility] REF LABS) [facility] BASIC METABOLIC PANEL 2022-06-22 05:55:00 Kirsten Alexis [facility] BASIC METABOLIC PANEL 2022-06-21 01:36:00 Kirsten Alexis [facility] VITAMIN B12 2022-06-19 16:59:00 DurkalNileshal Prachelsea [facility] XR ANKLE 3 VIEWS RIGHT 2022-06-19 14:20:00 Aniceto Ta [facility] BASIC METABOLIC PANEL 2022-06-19 04:50:[address] [facility] CBC W/PLT COUNT & AUTO 2022-06-19 04:50:00 Pietro [facility] PROTHROMBIN TIME/INR 2022-06-19 04:50:00 Pietro [facility] MAGNESIUM 2022-06-19 04:50:[address] [facility] URIC ACID 2022-06-19 04:50:00 Aniceto Ta [facility] CBC W/PLT COUNT & AUTO 2022-06-19 04:50:00 Pietro [facility] POCT-GLUCOSE METER 2022-06-09 11:39:00 NeBryan maxwell [facility] POCT-GLUCOSE METER 2022-06-09 07:01:00 Neason, [facility] BASIC METABOLIC PANEL 2022-06-09 04:08:00 Tyler Hardy [facility] CBC W/PLT COUNT & AUTO 2022-06-09 04:08:00 Tyler Hardy [facility] CBC W/PLT COUNT & AUTO 2022-06-09 04:08:00 Tyler Hardy [facility] POCT-GLUCOSE METER 2022-06-08 20:57:00 Nealissa, [facility] POCT-GLUCOSE METER 2022-06-08 16:38:00 Nealissa [facility] POCT-GLUCOSE METER 2022-06-08 12:00:00 NeBryan [facility]well [facility] POCT-GLUCOSE METER 2022-06-08 08:13:00 [facility] BASIC METABOLIC PANEL 2022-06-08 04:45:00 Tyler Hardy [facility] CBC W/PLT COUNT & AUTO 2022-06-08 04:45:00 Tyler Hardy [facility] CBC W/PLT COUNT & AUTO 2022-06-08 04:45:00 Tyler Hardy [facility] POCT-GLUCOSE METER 2022-06-07 21:02:00 NeBryan [facility]well [facility] POCT-GLUCOSE METER 2022-06-07 17:14:00 Neason, [facility] POCT-GLUCOSE METER 2022-06-07 11:05:00 Neason, [facility] POCT-GLUCOSE METER 2022-06-07 07:28:00 Neason, [facility] BASIC METABOLIC PANEL 2022-06-07 03:39:00 Antony, Scott Kamel [facility] CBC W/PLT COUNT & AUTO 2022-06-07 03:39:00 Tyler Hardy [facility] CBC W/PLT COUNT & AUTO 2022-06-07 03:39:00 Tyler Hardy [facility] POCT-GLUCOSE METER 2022-06-06 20:43:00 Nealissa [facility] POCT-GLUCOSE METER 2022-06-06 16:56:00 Neason [facility] POCT-GLUCOSE METER 2022-06-06 11:22:00 Nealissa [facility] SARS-COV2/RT-PCR ([facility] & 2022-06-06 08:18:[address] [facility] POCT-GLUCOSE METER 2022-06-06 07:22:00 Sierra [facility] BASIC METABOLIC PANEL 2022-06-06 04:38:00 Tyler Hardy [facility] CBC W/PLT COUNT & AUTO 2022-06-06 04:38:00 Tyler Hardy [facility] CBC W/PLT COUNT & AUTO 2022-06-06 04:38:00 Tyler Hardy [facility] POCT-GLUCOSE METER 2022-06-05 20:49:00 Sierra [facility] POCT-GLUCOSE METER 2022-06-05 11:53:00 Sierra [facility] POCT-GLUCOSE METER 2022-06-05 06:46:00 Sierra [facility] BASIC METABOLIC PANEL 2022-06-05 04:25:00 Tyler Hardy [facility] CBC W/PLT COUNT & AUTO 2022-06-05 04:25:00 Tyler Hardy [facility] CBC W/PLT COUNT & AUTO 2022-06-05 04:25:00 Tyler Hardy [facility] POCT-GLUCOSE METER 2022-06-04 20:47:00 Bryan [facility] POCT-GLUCOSE METER 2022-06-04 16:17:00 NeBryan maxwell [facility] POCT-GLUCOSE METER 2022-06-04 11:29:00 Bryan [facility] POCT-GLUCOSE METER 2022-06-04 06:44:00 Sierra[facility] BASIC METABOLIC PANEL 2022-06-04 05:02:00 Tyler Hardy [facility] CBC W/PLT COUNT & AUTO 2022-06-04 05:02:00 Tyler Hardy [facility] CBC W/PLT COUNT & AUTO 2022-06-04 05:02:00 Tyler Hardy [facility] CT CHEST WITH IV CONTRAST 2022-06-04 02:03:00 Tyler Hardy [facility] CT ABDOMEN/PELVIS WITH IV 2022-06-04 02:03:00 Tyler Hardy [facility] POCT-GLUCOSE METER 2022-06-03 21:08:00 [facility] POCT-GLUCOSE METER 2022-06-03 17:05:00 Nancyalissa [facility] POCT-GLUCOSE METER 2022-06-03 11:06:00 NancyBryan maxwell [facility] POCT-GLUCOSE METER 2022-06-03 07:26:00 NeBryan maxwell [facility] BASIC METABOLIC PANEL 2022-06-03 04:28:00 Tyler Hardy [facility] CBC W/PLT COUNT & AUTO 2022-06-03 04:28:00 Tyler Hardy [facility] CBC W/PLT COUNT & AUTO 2022-06-03 04:28:00 Tyler Hardy [facility] POCT-GLUCOSE METER 2022-06-02 20:51:00 Bryan [facility] POCT-GLUCOSE METER 2022-06-02 14:41:00 Bryan [facility] POCT-ACT 2022-06-02 13:49:00 [facility] CATHETERIZATION, HEART, 2022-06-02 12:49:00 Billie Vyas [facility] LEFT, WITH PERCUTANEOUS Medical Center CORONARY INTERVENTION POCT-GLUCOSE METER 2022-06-02 11:08:00 Sierra [facility] POCT-GLUCOSE METER 2022-06-02 07:54:00 [facility] CBC W/PLT COUNT & AUTO 2022-06-02 04:18:00 Tyler Hardy [facility] CBC W/PLT COUNT & AUTO 2022-06-02 04:18:00 Syeda Sanchez [facility] BASIC METABOLIC PANEL 2022-06-02 04:17:00 Tyler Hardy [facility] POCT-GLUCOSE METER 2022-06-01 20:56:00 Nealissa [facility] POCT-GLUCOSE METER 2022-06-01 16:29:00 Nealissa [facility] POCT-GLUCOSE METER 2022-06-01 11:50:00 Nealissa [facility] POCT-GLUCOSE METER 2022-06-01 07:21:00 Syeda Sanchez [facility] MAGNESIUM 2022-06-01 04:44:00 Ramirez [facility] PHOSPHORUS 2022-06-01 04:44:00 [facility] 2022-06-01 04:44:00 Tyler Hardy [facility] CBC W/PLT COUNT & AUTO 2022-06-01 04:44:00 Tyler Hardy [facility] CBC W/PLT COUNT & AUTO 2022-06-01 04:44:00 Daniel, Syeda [facility] POCT-GLUCOSE METER 2022-05-31 21:37:00 Daniel [facility] 2D ECHO W/ DOPPLER 2022-05-31 17:38:13 Tyler Hardy [facility] (CW/PW/COLOR) [facility] POCT-GLUCOSE METER 2022-05-31 17:06:00 Daniel [facility] POCT-GLUCOSE METER 2022-05-31 11:44:00 Daniel [facility] POCT-GLUCOSE METER 2022-05-31 06:53:00 Merissa Ambrocio [facility] XR ABDOMEN/KUB 1 VIEW 2022-05-31 06:47:00 Amalia Deleon [facility] PORTABLE [facility] XR CHEST 1 VIEW PORTABLE / 2022-05-31 06:44:00 Amalia Deleon [facility] BEDSIDE [facility] HIGH SENSITIVITY TROPONIN I 2022-05-31 06:35:00 Eli Deleon [facility] ECG 12-LEAD 2022-05-31 06:20:00 Amalia eDleon [facility] ECG 12-LEAD 2022-05-31 06:20:00 Unknown, Hl7 [facility] MAGNESIUM 2022-05-31 04:37:00 Ramirez Joslyn [facility] PHOSPHORUS 2022-05-31 04:37:00 Ramirez [facility] BASIC METABOLIC PANEL 2022-05-31 04:37:00 Tyler Hardy CH I [facility] CBC W/PLT COUNT & AUTO 2022-05-31 04:37:00 Tyler Hardy HI [facility] CBC W/PLT COUNT & AUTO 2022-05-31 04:37:[address] [facility] POCT-GLUCOSE METER 2022-05-30 21:10:00 Merissa Ambrocio [facility] CT ABDOMEN/PELVIS WITHOUT 2022-05-30 18:15:00 Tyler Hardy [facility] IV CONTRAST [facility] POCT-GLUCOSE METER 2022-05-30 16:54:00 Merissa Ambrocio [facility] SARS-COV2/RT-PCR ([facility] & 2022-05-30 16:21:00 Tyler Hardy [facility] REF LABS) Medical Center NM MYOCARDIAL PERFUSION 2022-05-30 14:14:00 Syeda Sanchez Juan [facility] PET/CT (REST & STRESS) Medical C enter ECG 12-LEAD 2022-05-30 13:25:46 Unknown, Hl7 [facility] ECG 12-LEAD 2022-05-30 13:25:46 Unknown, Hl7 [facility] VITAMIN B12 BINDING 2022-05-30 09:39:00 [facility] VITAMIN B1 2022-05-30 09:39:00 [facility] POCT-GLUCOSE METER 2022-05-30 07:54:00 Merissa Ambrocio [facility] MAGNESIUM 2022-05-30 04:29:[facility] 2022-05-30 04:29:00 [facility] BASIC METABOLIC PANEL 2022-05-30 04:29:00 Tyler Hardy [facility] CBC W/PLT COUNT & AUTO 2022-05-30 04:29:00 Tyler Hardy [facility] CBC W/PLT COUNT & AUTO 2022-05-30 04:29:00 Syeda Sanchez [facility] POCT-GLUCOSE METER 2022-05-29 21:05:00 Merissa Ambrocio [facility] CAROTID DOPPLER BILATERAL 2022-05-29 20:25:00 Tyler Hardy [facility] POCT-GLUCOSE METER 2022-05-29 16:43:00 Cristóbal Merissa [facility] CARCINOEMBRYONIC ANTIGEN 2022-05-29 16:18:00 Tyler Hardy [facility] (CEA) [facility] CARBOHYDRATE ANTIGEN 19-9 2022-05-29 16:18:00 Tyler Hardy [facility] (CA 19-9) [facility] ALPHA FETOPROTEIN (AFP), 2022-05-29 16:18:00 Tyler Hardy [facility] TUMOR MARKER [facility] POCT-GLUCOSE METER 2022-05-29 11:14:00 Merissa Ambrocio [facility] POCT-GLUCOSE METER 2022-05-29 07:24:00 Merissa Ambrocio [facility] BASIC METABOLIC PANEL 2022-05-29 04:34:00 Guzmán [facility] PROTHROMBIN TIME/INR 2022-05-29 04:34:00 Ramirez [facility] MAGNESIUM 2022-05-29 04:34:00 Ramirez [facility] PHOSPHORUS 2022-05-29 04:34:00 Guzmán [facility] CBC W/PLT COUNT & AUTO 2022-05-29 04:34:00 Joslyn Guzmán CH I [facility] CBC W/PLT COUNT & AUTO 2022-05-29 04:34:00 Joslyn Guzmán I [facility] VASCULAR DIAGRAM -SCAN 2022-05-29 00:00:00 Provider, Amaury [facility] CARDIAC CATH REPORT - SCAN 2022-05-29 00:00:00 Provider, Amaury [facility] Plan of Care Planned Activity Planned Date Details Comments Source Future Scheduled 2025-06-23 Lipid panel (procedure) [facility]:00 [code = 58311363] Medical Ce nter Future Scheduled 2023-07-15 Tobacco Cessation [facility]:00 Counseling and Medical [...] [facility] Test 00:00:00 2) [code = SHINGLES [facility] VACCINES (1 of 2)] Future Scheduled 2010 SHINGLES VACCINES ([address] [facility] 00:00:00 2) [code = SHINGLES [facility] VACCINES (1 of 2)] Future Scheduled 1995 Lipid panel (procedure) [facility] Test 00:00:00 [code = 18587008] Medical Ce nter Future Scheduled 1979 DTAP/TDAP/TD [...] [facility] Test 00:00:00 [code = CT Colonography [facility] (combo)] Future Scheduled 1960 Screening for malignant [facility] Test 00:00:00 neoplasm of colon Medical Ce nter (procedure) [code = 543660485] Future Scheduled 1960 Screening for malignant [facility] Test 00:00:00 neoplasm of colon Medical Ce nter (procedure) [code = 166163138] Future Scheduled 1960 Screening for malignant [facility] Test 00:00:00 neoplasm of colon Medical Ce nter (procedure) [code = 830655358] Future Scheduled 1960 Screening for malignant [facility] Test 00:00:00 neoplasm of colon Medical Ce nter (procedure) [code = 132279184] Future Scheduled 1960 Sigmoidoscopy [facility]code = [facility] S[facility]oscopy] Medical Cente r Future Scheduled 1960 CT Colonography (combo) [facility] 00:00:00 [code = [facility] Future Scheduled 1960 Screening for malignant [facility] Test 00:00:00 neoplasm of colon Medical Ce nter (procedure) [code = 467831025] Future Scheduled 1960 Screening for malignant [facility] Test 00:00:00 neoplasm of colon Medical Ce nter (procedure) [code = 978580643] Future Scheduled 1960 Screening for malignant [facility] Test 00:00:00 neoplasm of colon Medical Ce nter (procedure) [code = 299828234] Future Scheduled 1960 Screening for malignant [facility] Test 00:00:00 neoplasm of colon Medical Ce nter (procedure) [code = 934355016] Future Scheduled 1960 Sigmoidoscopy [facility]oscopy] Medical Cente r Encounters Start End Encounter Admission Attending Care Care Encounter Source Date/Time Date/Time Type Type Clinicians Facility Department ID 2022-06-18 2022-07-24 Inpatient UR ANICETO TA [facility] Neurology [id number] SLE 23:46:00 19:13:00 2022-06-18 2022-07-24 Hospital UR Syeda Sanchez Juan [facility] [id number] 23:46[facility]00 19:13:00 Encounter Aniceto Ta, Alexis Bateman, Teja Guo, Arin Wynne 2022-06-19 2022-06-19 Travel [facility] [id number] [facility] 00:[facility]:00 [facility] 2022-05-29 2022-06-09 Inpatient ER NANCYSANIYA MAXWELL General Med [id number] SLE 01:15:00 16:04:[address] [facility] 2022-05-29 2022-06-09 Hospital ER Merissa Ambrocio [facility] [id number] [facility] 01:15[facility] 16:04:00 Encounter DanielSyeda melendez tulio [facility] 2022-06-02 2022-06-02 Surgery Sen, [facility] [id number] 12:15:00 14:52:00 [facility] 2022-05-30 2022-05-30 Orders [facility] [id number] 00:00:00 00:00:00 Only [facility] 2022-05-29 2022-05-29 Travel [facility] [id number] [facility] 00:[facility]:00 [facility] Results Test Description Test Time Test Comments [...] s not applicable for dialysis ghada ma Public Health Social Worker ID - [id number] 12:41:59 Test Item Value Reference Range Interpretation Comments SODIUM (BEAKER) (test code = 381) 134 meq/L 136-145 L POTASSIUM (BEAKER) (test code = 4.3 meq/L 3.5-5.1 379) CHLORIDE (BEAKER) (test code = 382) 98 meq/L 98-107 CO2 (BEAKER) (test code = 355) 28 meq/L 22-29 Public Health Social Worker ID - PAVAN BPOC-Glucose [id number] 11:45:50 Test Item Value Reference Range Interpretation Comments POC-Glucose Meter (test 102 mg/dL 70-110 : TE STED AT [facility] code = 1538) [address] [place], [address]: Public Health Social Worker/Techni ilir ID = [id number] for TSERING FARR Lab Interpretation (test Normal code = 76595-5) [facility] [id number] 11:45:50 Test Item Value Reference Range Interpretation Comments POC-GLUCOSE METER 102 mg/dL 70-110 : TESTED A T [facility] 6720 (BEAKER) (test code = [facility] Abelino [facility], 1538) [address]: Public Health Social Worker/Techni ilir ID = [id number] for IRINA CHRISTENSEN POCT-GLUCOSE [id number] 08:25:45 Test Item Value Reference Range Interpretation Comments POC-GLUCOSE METER 108 mg/dL 70-110 : TESTED A T [facility] 67[facility] (BEAKER) (test code = [facility], 1538) [address]: Public Health Social Worker/Techni ilir ID = [id number] for Katie Cruz POCT-GLUCOSE [id number] 17:31:55 Test Item Value Reference Range Interpretation Comments POC-GLUCOSE METER 108 mg/dL 70-110 : TESTED A T [facility] (BEAKER) (test code = [facility], 1538) 53089: Public Health Social Worker/Techni ilir ID = [id number] for IRINA CHRISTENSEN POCT-GLUCOSE [id number] 12:55:04 Test Item Value Reference Range Interpretation Comments POC-GLUCOSE METER 111 mg/dL 70-110 H : TESTED A T [facility] (BEAKER) (test code = [facility], 1538) [address]: Public Health Social Worker/Techni ilir ID = [id number] for Dat Silva POCT-GLUCOSE [id number] 09:03:52 Test Item Value Reference Range Interpretation Comments POC-GLUCOSE METER 128 mg/dL 70-110 H : TESTED A T [facility] (BEAKER) (test code = [facility], 1538) 230[address]: Public Health Social Worker/Techni ilir ID = [id number] for IRINA CHRISTENSEN SARS-CoV2/RT-PCR (Asymptomatic ONLY)2022-07-20 07:10:51 Test Item Value Reference Interpretation Comments Range SARS-COV2/RT-PCR Negative Negative The SARS-Co V-2 (test code = target nucleic 73709-1) acids are not detected in thi s [...] revoked sooner. Fact Sheet for Healthcare Providers: https://www.[employer]/Documents/Xp ert%20Xpress%20SAR S%20CoV-2/Fact%20S heets/302-3802%20S ARS-COV-2%20HEALTH CARE%20PROVIDERS%2 0FACT%20SHEET.pdf Fact Sheet for Healthcare Patients: https://www.[employer]/Documents/Xp ert%20Xpress%20SAR S%20CoV-2/Fact%20S heets/302-3801%20S ARS-COV-2%20PATIEN T%20FACT%20SHEET.p df Lab Interpretation Normal (test code = 93755-5) [facility] ([facility] & REF LABS)2022-07-20 07:10:51 Test Item Value Reference Range Interpretation Comments SARS-COV2/RT-PCR Negative Negative The SARS-Co V-2 target (test code = nucleic acids a re not 1083635) detected in thi s specimen. Negative result [...] revoked sooner. Fact Sheet for Healthcare Providers: https://www.[employer]/Documents/Xpert%20Xpress%20SARS%20CoV-2/Fact%20Sheets/302-3802%86PUDD-DYK-1%20 HEALTHCARE%20PROVIDERS%20FACT%20SHEET.pdf Fact Sheet for Healthcare Patients: https://www.[employer]/Documents/Xpert%20Xp ress%20SARS%20CoV-2/Fact%20Sheets/302-3801%00ENPV-TPN-4%20PATIENT%20FACT%20SHEET .pdfPOCT-GLUCOSE [id number] 22:07:58 Test Item Value Reference Range Interpretation Comments POC-GLUCOSE METER 111 mg/dL 70-110 H : TESTED A T [facility] ([employer] ([employer] (test code = [employer] Abelino [facility], 1538) [address]: Public Health Social Worker/Techni ilir ID = [id number] for Pravin Santos POCT-GLUCOSE [id number] 18:42:03 Test Item Value Reference Range Interpretation Comments POC-GLUCOSE METER 129 mg/dL 70-110 H : TESTED A T [facility] ([employer] ([employer] (test code = [facility] [employer] [facility], 1538) [address]: Public Health Social Worker/Techni ilir ID = [id number] for Mattie DELGADO POCT-GLUCOSE [id number] 08:03:40 Test Item Value Reference Range Interpretation Comments POC-GLUCOSE METER 112 mg/dL 70-110 H : TESTED A T [facility] 67[facility] (BEAKER) (test code = [facility] Abelino [facility], 1538) [address]: Public Health Social Worker/Techni ilir ID = [id number] for Mattie DELGADO BASIC METABOLIC [id number] 06:25:19 Test Item Value Reference Range Interpretation [...] not appl icable for dialysis patien ts Public Health Social Worker ID - MARCOPOCT-GLUCOSE [id number] 22:05:09 Test Item Value Reference Range Interpretation Comments POC-GLUCOSE METER 111 mg/dL 70-110 H : TESTED A T [facility] (BEAKER) (test code = [facility] Abelino [facility], 1538) [address]: Public Health Social Worker/Techni ilir ID = [id number] for Pravin Santos POCT-GLUCOSE [id number] 21:56:03 Test Item Value Reference Range Interpretation Comments POC-GLUCOSE METER 113 mg/dL 70-110 H : TESTED A T [facility] (BEAKER) (test code = [facility], 1538) [address]: Public Health Social Worker/Techni ilir ID = [id number] for WE[place] MANCIA POCT-GLUCOSE [id number] 13:07:32 Test Item Value Reference Range Interpretation Comments POC-GLUCOSE METER 121 mg/dL 70-110 H : TESTED A T [facility] (BEAKER) (test code = [facility], 1538) [address]: Public Health Social Worker/Techni ilir ID = [id number] for WE[place]IA POCT-GLUCOSE [id number] 08:10:20 Test Item Value Reference Range Interpretation Comments POC-GLUCOSE METER 138 mg/dL 70-110 H : TESTED A T [facility] (BEAKER) (test code = [facility], 1538) [address]: Public Health Social Worker/Techni ilir ID = [id number] for [place]IA BASIC METABOLIC [id number] 06:36:32 Test Item Value Reference Range Interpretation [...] not appl icable for dialysis patien ts Public Health Social Worker ID - MARCOCBC W/PLT COUNT & AUTO [id number] 06:11:06 Test Item Value Reference Range Interpretation [...] PERCENT (BEAKER) (test code = 2801) POCT-GLUCOSE [id number] 21:51:47 Test Item Value Reference Range Interpretation Comments POC-GLUCOSE METER 107 mg/dL 70-110 : TESTED A T [facility] (BEAKER) (test code = [facility], 153) [address]: Public Health Social Worker/Techni liir ID = [id number] for DIANA NAWAF TAYA POCT-GLUCOSE [id number] 17:47:35 Test Item Value Reference Range Interpretation Comments POC-GLUCOSE METER 128 mg/dL 70-110 H : TESTED A T [facility] (BEAKER) (test code = [facility], 153) 8[address]: Public Health Social Worker/Techni ilir ID = [id number] for Um eh, Akumbu POCT-GLUCOSE [id number] 12:56:02 Test Item Value Reference Range Interpretation Comments POC-GLUCOSE METER 114 mg/dL 70-110 H : TESTED A T [facility]20 (BEAKER) (test code = [facility], 153) 6[address]12: Public Health Social Worker/Techni ilir ID = [id number] for Um eh, [place]umbu POCT-GLUCOSE [id number] 09:56:26 Test Item Value Reference Range Interpretation Comments POC-GLUCOSE METER 93 mg/dL 70-110 : TESTED A T [facility]20 (BEAKER) (test code = [facility], 153) 25990: Public Health Social Worker/Techni ilir ID = [id number] for Umeh , Akumbu BASIC METABOLIC [id number] 06:52:25 Test Item Value Reference Range Interpretation [...] 8.4-10.2 (test code = 697) EGFR ([facility]) 101 Interpretatio n of eGFR [...] not appl icable for dialysis patien ts Public Health Social Worker ID - ADMINPOCT-GLUCOSE [id number] 21:31:13 Test Item Value Reference Range Interpretation Comments POC-GLUCOSE METER 123 mg/dL 70-110 H : Notified RN/MD: ([facility]) (test code = TESTED AT [place] [address] 1538) [address] [facility], [address]: Public Health Social Worker/Techni ilir ID = [id number] for LATHBRIDGE, JILLIAN ICE POCT-GLUCOSE [id number] 18:00:17 Test Item Value Reference Range Interpretation Comments POC-GLUCOSE METER 124 mg/dL 70-110 H : TESTED A T [facility] 67 ([facility]) (test code = [address] [facility], 1538) [address]: Public Health Social Worker/Techni ilir ID = [id number] for AK INSONU, AZIZA POCT-GLUCOSE [id number] 13:13:09 Test Item Value Reference Range Interpretation Comments POC-GLUCOSE METER 136 mg/dL 70-110 H : TESTED A T [facility]20 (BEAKER) (test code = [place], [address]38) [address]: Public Health Social Worker/Techni ilir ID = [id number] for AZIZA US POCT-GLUCOSE [id number] 08:37:32 Test Item Value Reference Range Interpretation Comments POC-GLUCOSE METER 108 mg/dL 70-110 : TESTED A T [facility] 67[facility] (BEAKER) (test code = [place], 1538) [address]: Public Health Social Worker/Techni ilir ID = [id number] for AZIZA US BASIC METABOLIC [id number] 04:49:51 Test Item Value Reference Range Interpretation [...] not appl icable for dialysis patien ts Public Health Social Worker ID - MARCOCBC W/PLT COUNT & AUTO [id number] 04:29:03 Test Item Value Reference Range Interpretation [...] PERCENT (BEAKER) (test code = 2801) POCT-GLUCOSE [id number] 21:55:25 Test Item Value Reference Range Interpretation Comments POC-GLUCOSE METER 132 mg/dL 70-110 H : TESTED A T [facility] 6720 (BEAKER) (test code = [address] [facility], 1538) [address]: Public Health Social Worker/Techni ilir ID = [id number] for Pravin Santos POCT-GLUCOSE [id number] 16:54:38 Test Item Value Reference Range Interpretation Comments POC-GLUCOSE METER 172 mg/dL 70-110 H : TESTED A T [facility] 6720 (BEAKER) (test code [address] [facility], = 1538) [address]: Public Health Social Worker/Techni ilir ID = [id number] for Anthony Boyer CORTISOL,60 [id number] 13:32:09 Test Item Value Reference Range Interpretation [...] a study by Chris et al (DRISS 2000,283(8):1531-96), the ACTH Stimulation Test provides important prognostic [...] Pharmacy Policy and Procedure Section on The Source.Public Health Social Worker ID - MANPREET GPOCT-GLUCOSE METER 2022-07-15 13:23:53 Test Item Value Reference Range Interpretation Comments POC-GLUCOSE METER 96 mg/dL 70-110 : TESTED A T [facility] 6720 ([employer] ([employer] (test code = [place], 1538) [address]: Public Health Social Worker/Techni ilir ID = [id number] for Anthony Boyer CORTISOL,30 [id number] 12:48:04 Test Item Value Reference Range Interpretation [...] Pharmacy Policy and Procedure Section on The Source.Public Health Social Worker ID - MANPREET GProtein Electrophoresis, [id number] 12:05:39 Test Item Value Reference Range Interpretation Comments Pre-Albumin (CSF) TNP Test Not (test code = 68446-5) Perfor med. Albumin, CSF (test TNP Test Not code = 1746-7) Performed. Metiv-6-Xdrsujih CSF TNP Test No t (test code = 18101-4) Perfor med. Epifa-1-Xgmyszjg CSF TNP Test No t (test code = 2160088) Perfor med. Beta Globulin (CSF) TNP Test Not (test code = 96747-4) Perfor med. Gamma Globulin (CSF) TNP Test No t (test code = 04092-1) Perfor med. Interpretation (test TNP Test No t code = 1065699) Performed. Specimen quantity not sufficient afte r other testscompleted. Test not performed. JUANA (test code = JUANA) Performing Lab 15 [facility] [address] [facility] [address] [place], [place] Nathaniel Ceja MD, PhD [facility] Hospital[facility]ORTISOL,[id number] 11:03:25 Test Item Value Reference Range Interpretation [...] Pharmacy Policy and Procedure Section on The Source.Public Health Social Worker ID - MANPREET GPOCT-GLUCOSE METER 2022-07-15 09:29:24 Test Item Value Reference Range Interpretation Comments POC-GLUCOSE METER 121 mg/dL 70-110 H : TESTED A T [facility] 6720 (BEAKER) (test code [facility], = 1538) 17824: Public Health Social Worker/Techni ilir ID = [id number] for Anthony Boyer BASIC METABOLIC [id number] 05:53:47 Test Item Value Reference Range Interpretation [...] not appl icable for dialysis patien ts Public Health Social Worker ID - MANPREET PL-[id number] 05:44:11 Test Item Value Reference Range Interpretation [...] of thrombosis is within 95-100% range.POCT- GLUCOSE [id number] 21:54:00 Test Item Value Reference Range Interpretation Comments POC-GLUCOSE METER 112 mg/dL 70-110 H : TESTED A T [facility] 6720 (BEAKER) (test code = [facility], 1538) 49712: Public Health Social Worker/Techni ilir ID = [id number] for Pravin Santos POCT-GLUCOSE [id number] 17:50:55 Test Item Value Reference Range Interpretation Comments POC-GLUCOSE METER 112 mg/dL 70-110 H : TESTED A T [facility] 6720 (BEAKER) (test code = [facility], 1538) 22618: Public Health Social Worker/Techni ilir ID = [id number] for CHERYL THOMPSON POCT-GLUCOSE [id number] 13:03:01 Test Item Value Reference Range Interpretation Comments POC-GLUCOSE METER 102 mg/dL 70-110 : TESTED A T [facility] 6720 (BEAKER) (test code = [facility], 1538) 63493: Public Health Social Worker/Techni ilir ID = [id number] for Katie Cruz RAD, CHEST, 1 VIEW, NON [id number] 11:54:00Reason for exam:- >hypoxia/SOBShould this be performed at the bedside?->Yes [facility] 1960 Sex: MFINAL REPORT INDICATION: hypoxia/SOB COMPARISON: None TECHNIQUE: Single frontal view of the chest. FINDINGS: Lungs and pleura: Clear lungs. No effusion.Heart and mediastinum: Normal heart size. Unremarkable mediastinal contours.Osseous structures: No acute abnormality.Other: None. IMPRESSION: No acute intrathoracic abnormality. Signed: Tatyana Bang Verified Date/Time: 07/14/2022 11:54:52 Reading Location: [address] Reading Room POCT-GLUCOSE [id number] 10:02:04 Test Item Value Reference Range Interpretation Comments POC-GLUCOSE METER 99 mg/dL 70-110 : TESTED A T [facility] 6720 (BEAKER) (test code = [facility], 1538) 90366: Public Health Social Worker/Techni ilir ID = [id number] for Jesika Trujillo POCT-GLUCOSE [id number] 08:32:19 Test Item Value Reference Range Interpretation Comments POC-GLUCOSE METER 101 mg/dL 70-110 : TESTED A T [facility] 6720 (BEAKER) (test code = [facility], 1538) 07083: Public Health Social Worker/Techni ilir ID = [id number] for Yanna torrezJameelcristianu HEPATIC FUNCTION [id number] 06:23:29 Test Item Value Reference Range Interpretation [...] code = 61 U/L 6-55 H 347) Public Health Social Worker ID - MARCOBASIC METABOLIC [id number] 06:23:28 Test Item Value Reference Range Interpretation [...] not appl icable for dialysis patien ts Public Health Social Worker ID - MARCOCBC W/PLT COUNT & AUTO [id number] 06:04:21 Test Item Value Reference Range Interpretation [...] PERCENT (BEAKER) (test code = 2801) POCT-GLUCOSE [id number] 22:04:25 Test Item Value Reference Range Interpretation Comments POC-GLUCOSE METER 109 mg/dL 70-110 : TESTED A T [facility] (BEAKER) (test code = [facility], 1538) 02281: Public Health Social Worker/Techni ilir ID = [id number] for Pravin Santos BASIC METABOLIC [id number] 17:53:02 Test Item Value Reference Range Interpretation [...] not appl icable for dialysis patien ts Public Health Social Worker ID - BSSARS-COV2/RT-PCR ([facility])2022-07-13 17:37:27 Test Item Value Reference Range Interpretation Comments SARS-COV2/RT-PCR Negative Negative The SARS-Co V-2 target (test code = nucleic acids a re not 7615771) detected in thi s specimen. Negative result [...] individuals suspected of CO VID-[address] [facility]. This test has been authorized [...] revoked sooner. Fact Sheet for Healthcare Providers: https://www.ShepHertz m/Documents/Xpert%20Xpress%20SARS%20CoV-2/Fact%20Sheets/302-3802%14KQBY-EGX-4%20 HEALTHCARE%20PROVIDERS%20FACT%20SHEET.pdf Fact Sheet for Healthcare Patients: https://www.Yakaz/Documents/Xpert%20Xp ress%20SARS%20CoV-2/Fact%20Sheets/302-3801%61TVLP-LFQ-0%20PATIENT%20FACT%20SHEET .pdfPOCT-GLUCOSE [id number] 17:30:14 Test Item Value Reference Range Interpretation Comments POC-GLUCOSE METER 96 mg/dL 70-110 : TESTED A T [facility] 6720 ([employer] (test code = [facility] [place], 1538) 14403: Public Health Social Worker/Techni ilir ID = [id number] for IRINA MENDOZA POCT-GLUCOSE [id number] 12:21:32 Test Item Value Reference Range Interpretation Comments POC-GLUCOSE METER 114 mg/dL 70-110 H : TESTED A T [facility] 6720 (BEAKER) (test code = [facility] [place], 1538) 72575: Public Health Social Worker/Techni ilir ID = [id number] for IRINA CHRISTENSEN POCT-GLUCOSE [id number] 08:36:47 Test Item Value Reference Range Interpretation Comments POC-GLUCOSE METER 116 mg/dL 70-110 H : TESTED A T [facility] 6720 (BEAKER) (test code = [facility] [place], 1538) 39324: Public Health Social Worker/Techni ilir ID = [id number] for Um ehJameelumbu BASIC METABOLIC [id number] 04:57:33 Test Item Value Reference Range Interpretation [...] not appl icable for dialysis patien ts Public Health Social Worker ID - PIAYA LPOCT-GLUCOSE [id number] 21:25:05 Test Item Value Reference Range Interpretation Comments POC-GLUCOSE METER 113 mg/dL 70-110 H : TESTED A T [facility] 6720 (BEAKER) (test code [facility], = 1538) 83938: Public Health Social Worker/Techni ilir ID = [id number] for Kike Ramos POCT-GLUCOSE [id number] 18:06:10 Test Item Value Reference Range Interpretation Comments POC-GLUCOSE METER 117 mg/dL 70-110 H : TESTED A T [facility] 6720 (BEAKER) (test code = [facility], 1538) 53917: Public Health Social Worker/Techni ilir ID = [id number] for An sonia, Naila POCT-GLUCOSE [id number] 12:34:06 Test Item Value Reference Range Interpretation Comments POC-GLUCOSE METER 114 mg/dL 70-110 H : TESTED A T [facility] 6720 (BEAKER) (test code = [facility], 1538) 83075: Public Health Social Worker/Techni ilir ID = [id number] for An sonia, Naila POCT-GLUCOSE [id number] 07:54:16 Test Item Value Reference Range Interpretation Comments POC-GLUCOSE METER 104 mg/dL 70-110 : TESTED A T [facility] 6720 (BEAKER) (test code = [facility], 1538) 96574: Public Health Social Worker/Techni ilir ID = [id number] for An sonia, Naila BASIC METABOLIC [id number] 06:47:01 Test Item Value Reference Range Interpretation [...] not appl icable for dialysis patien ts Public Health Social Worker ID - PIAYA LCBC W/PLT COUNT & AUTO [id number] 05:35:20 Test Item Value Reference Range Interpretation [...] PERCENT (BEAKER) (test code = 2801) POCT-GLUCOSE [id number] 21:32:03 Test Item Value Reference Range Interpretation Comments POC-GLUCOSE METER 120 mg/dL 70-110 H : TESTED A T [facility] 6720 (BEAKER) (test code [facility], = 1538) 12046: Public Health Social Worker/Techni ilir ID = [id number] for Kike Ramos POCT-GLUCOSE [id number] 17:52:43 Test Item Value Reference Range Interpretation Comments POC-GLUCOSE METER 112 mg/dL 70-110 H : TESTED A T [facility] 6720 (BEAKER) (test code = [facility], 153) 10892: Public Health Social Worker/Techni ilir ID = [id number] for Um eh, Akumbu POCT-GLUCOSE [id number] 12:38:06 Test Item Value Reference Range Interpretation Comments POC-GLUCOSE METER 106 mg/dL 70-110 : TESTED A T [facility] 6720 (BEAKER) (test code = [facility], 153) 79646: Public Health Social Worker/Techni ilir ID = [id number] for Um eh, Akumbu POCT-GLUCOSE [id number] 07:54:24 Test Item Value Reference Range Interpretation Comments POC-GLUCOSE METER 115 mg/dL 70-110 H : TESTED A T [facility] 6720 (BEAKER) (test code = [facility], 1538) 55673: Public Health Social Worker/Techni ilir ID = [id number] for Um eh, Akumbu [id number] 05:46:10 Test Item Value Reference Range Interpretation Comments CORTISOL, TOTAL (BEAKER) (test code 3.7 ug/dL 3.7-19.4 = 2755) Public Health Social Worker ID - MARCOBASIC METABOLIC [id number] 05:28:46 Test Item Value Reference Range Interpretation [...] not appl icable for dialysis patien ts Public Health Social Worker ID - MARCOCBC W/PLT COUNT & AUTO [id number] 05:10:21 Test Item Value Reference Range Interpretation [...] PERCENT (BEAKER) (test code = 2801) POCT-GLUCOSE [id number] 17:59:25 Test Item Value Reference Range Interpretation Comments POC-GLUCOSE METER 113 mg/dL 70-110 H : TESTED A T [facility] 6720 (BEAKER) (test code = [facility] [place], 1538) 13242: Public Health Social Worker/Techni ilir ID = [id number] for Um eh, Akumbu POCT-GLUCOSE [id number] 11:49:37 Test Item Value Reference Range Interpretation Comments POC-GLUCOSE METER 126 mg/dL 70-110 H : TESTED A T [facility] 6720 (BEAKER) (test code = [facility], 1538) 03619: Public Health Social Worker/Techni ilir ID = [id number] for Um eh, Akumbu POCT-GLUCOSE [id number] 07:38:24 Test Item Value Reference Range Interpretation Comments POC-GLUCOSE METER 99 mg/dL 70-110 : TESTED A T [facility] 6720 (BEAKER) (test code = [facility], 1538) 03118: Public Health Social Worker/Techni ilir ID = [id number] for Umeh , Akumbu POCT-GLUCOSE [id number] 07:33:24 Test Item Value Reference Range Interpretation Comments POC-GLUCOSE METER 102 mg/dL 70-110 : TESTED A T [facility] 6720 (BEAKER) (test code = [facility], 1538) 29322: Public Health Social Worker/Techni ilir ID = [id number] for Pravin Santos URIC [id number] 06:53:20 Test Item Value Reference Range Interpretation Comments URIC ACID (BEAKER) 5.3 mg/dL 2.6-7.2 Specimen slightly (test code = 773) hemolyzed Public Health Social Worker ID - MARCOBASIC METABOLIC [id number] 06:31:31 Test Item Value Reference Range Interpretation [...] not appl icable for dialysis patien ts Public Health Social Worker ID - BALAAYA LSodium Na-Stat [id number] 06:15:10 Test Item Value Reference Range Interpretation Comments Sodium (test code = 2951-2) 129 meq/L 136-145 L Lab Interpretation (test code = Abnormal 25657-7) [facility]-STAT [id number] 06:15:10 Test Item Value Reference Range Interpretation Comments SODIUM (BEAKER) (test code = 381) 129 meq/L 136-145 L CBC W/PLT COUNT & AUTO [id number] 06:03:22 Test Item Value Reference Range Interpretation [...] PERCENT (BEAKER) (test code = 2801) OSMOLALITY, [id number] 16:34:52 Test Item Value Reference Range Interpretation Comments OSMOLALITY, SERUM (BEAKER) (test 264 mOsm/kg 275-295 L code = 615) Osmolality, [id number] 16:20:15 Test Item Value Reference Range Interpretation Comments Osmolality, Ur (test code 360 See_Comment [ Automated message] = 2695-5) The system [employer] generated this result transmitted ref erence range: 50-1,200 mOsm/kg mOsm/kg . The reference range was not used to int erpret this result as normal/abnormal . Lab Interpretation (test Normal code = 90413-3) [facility] HospitalOSMOLALITY, [id number] 16:20:15 Test Item Value Reference Range Interpretation Comments OSMOLALITY URINE 360 mOsm/kg See_Comment [Automated message] (BEAKER) (test code = The sy stem which 614) generated this result transmitted ref erence range: 50-1,200 mOsm/kg. The reference range was not used to int erpret this result as normal/abnormal . Sodium, random [id number] 14:08:09 Test Item Value Reference Range Interpretation Comments Sodium Urine (test 46 meq/L code = 2955-3) JUANA (test code = Reference Range: No JUANA) NormalsOperator ID - BS [facility]OD[facility], RANDOM [id number] 14:08:09 Test Item Value Reference Range Interpretation Comments SODIUM URINE (BEAKER) (test code = 46 meq/L 243) Reference Range: No NormalsOperator ID - BSChloride, random [id number] 14:08:08 Test Item Value Reference Range Interpretation Comments Chloride, Urine (test 32 meq/L 20-330 code = 55039-8) JUANA (test code = JUANA) Reference Range: No NormalsOperator ID - BS Lab Interpretation Normal (test code = 76588-5) [facility] HospitalCHLORIDE, RANDOM [id number] 14:08:08 Test Item Value Reference Range Interpretation Comments CHLORIDE URINE (BEAKER) (test code = 32 meq/L 20330 682) Reference Range: No NormalsOperator ID - BSPOCT-GLUCOSE [id number] 11:28:19 Test Item Value Reference Range Interpretation Comments POC-GLUCOSE METER 128 mg/dL 70-110 H : TESTED A T [facility] 6720 (BEAKER) (test code = [facility] [place] [employer] [facility], 1538) 96045: Public Health Social Worker/Techni ilir ID = [id number] for Um eh, Akumbu POCT-GLUCOSE [id number] 08:00:24 Test Item Value Reference Range Interpretation Comments POC-GLUCOSE METER 116 mg/dL 70-110 H : TESTED A T [facility] 6720 (BEAKER) (test code = [facility] [place] [employer] [facility], 1538) 08960: Public Health Social Worker/Techni ilir ID = [id number] for Um eh, Akumbu POCT-GLUCOSE [id number] 07:46:34 Test Item Value Reference Range Interpretation Comments POC-GLUCOSE METER 101 mg/dL 70-110 : TESTED A T [facility] 6720 (BEAKER) (test code = [facility], 1538) 54683: Public Health Social Worker/Techni ilir ID = [id number] for Bailey torrez BASIC METABOLIC [id number] 05:55:43 Test Item Value Reference Range Interpretation [...] not appl icable for dialysis patien ts Public Health Social Worker ID - MANPREET GCBC W/PLT COUNT & AUTO [id number] 04:46:43 Test Item Value Reference Range Interpretation [...] PERCENT (BEAKER) (test code = 2801) POCT-GLUCOSE [id number] 21:24:45 Test Item Value Reference Range Interpretation Comments POC-GLUCOSE METER 100 mg/dL 70-110 : TESTED A T [facility] 6720 (BEAKER) (test code [facility], = 1538) 27437: Public Health Social Worker/Techni ilir ID = [id number] for Kike Ramos AB SCR,IFA,[id number] 12:39:35 Test Item Value Reference Range Interpretation Comments Tissue Cells, CSF SEE BELOW No fluores cence (test code = observed on [place] 7221419) tissue. PHOENIX-1 (test code NEGATIVE NEGATIVE = 3088) [place]-2 (test code NEGATIVE NEGATIVE = 3089) [place]-3 (test code NEGATIVE NEGATIVE = 3090) PCA1 (YO) AB, NEGATIVE NEGATIVE IFA, CSF (QUEST) (test code = 2242887) PCA2 AB, IFA, CSF NEGATIVE NEGATIVE (QUEST) (test code = 8593403) BUILDING APPRAISER-TR (DNER) AB, NEGATIVE NEGATIVE IFA,CSF (QUEST) (test code = 5356867) AGNA/SOX1 AB, NEGATIVE NEGATIVE IFA, CSF (QUEST) (test code = 1993745) AMPHIPHYSIN (test NEGATIVE NEGATIVE code = 3093) CRMP5/CV2 AB, NEGATIVE NEGATIVE IFA, CSF (QUEST) (test code = 5437470) MARIAMA-65 (test code NEGATIVE NEGATIVE = 20040319) AQUAPORIN-4 AB, NEGATIVE NEGATIVE If specific neuronal IFA, CSF (QUEST) autoantibod ies were (test code = not detected, i t does 6267034) not exclude anidiopathic or paraneoplastic autoimmune neurological [...] the Qu est autoimmuneneuro logy website(https:/ /testd irectory.NotaryAct/test/t est-gu ides/CFParaneop lastic Syndromes/paran eoplas tic-neurologica l-synd romes-laborator y-supp wez-uv-xboakitj s) This test was developed and i ts analytical performance characteristics havebeen determ ined by [facility] .It has not been cl eared or approved by FDA. This assay has been validatedpursua nt to the CLIA regula tions and is used for clinical purpos es. JUANA (test code = Performing Lab EZ JUANA) [facility] [address] [place] [address] Mitchell Zhong MD, PhD, [facility] HospitalAQP4 AB (IGG), SCREEN, [id number] 12:39:35 Test Item Value Reference Range Interpretation Comments AQP4 AB (IGG), TNP NEGATIVE Test not perf ormed. SCREEN, CSF Reflex testing not QUEST) (test required since code = established 5213065) criteriawas not met. JUANA (test code Performing Lab EZ = JUANA) [facility] [id number] [place] [address] Mitchell Zhong MD, PhD, [facility] HospitalAQP4 AB (IGG),TITER,[id number] 12:39:35 Test Item Value Reference Range Interpretation Comments AQP4 AB TNP See_Comment Test not perfor med. (IGG),TITER,CS Reflex testin g not F (QUEST) required since (test code = established 5221830) criteriawas not met. [Automated mess age] The system [employer] generated this result transmit chely reference range : <1:10. The refe rence range was not u sed to interpret th is result as normal/abnormal . JUANA (test code Performing Lab EZ = JUANA) [employer] [facility] [address] [place] [address] Mitchell Zhong MD, PhD, [facility] HospitalANNA-3 Ab, IFA Titer, [id number] 12:39:35 Test Item Value Reference Range Interpretation Comments PHOENIX-3 AB, TNP See_Comment Test not perfor med. TITER, CSF Reflex testing not (QUEST) (test required since code = established 2443122) criteriawas not met. [Automated mess age] The system [employer] generated this result transmit chely reference range : <1:10. The refe rence range was not u sed to interpret th is result as normal/abnormal . JUANA (test code Performing Lab EZ = JUANA) [facility] [address] [place] [address] Mitchell Zhong MD, PhD, [facility] HospitalPCA-2 Ab, Titer, [id number] 12:39:35 Test Item Value Reference Range Interpretation Comments BUILDING APPRAISER-2 AB, TNP See_Comment Test not perfor med. TITER, CSF Reflex testing not (QUEST) (test required since code = established 0420670) criteriawas not met. [Automated mess age] The system [facility] h generated this result transmit chely reference range : <1:10. The refe rence range was not u sed to interpret th is result as normal/abnormal . JUANA (test code Performing Lab EZ = JUANA) [facility] [address] [place] [address] Mitchell Zhong MD, PhD, [facility] HospitalPARANEOPLASTIC AB, LB, [id number] 12:39:35 Test Item Value Reference Range Interpretation Comments ANNA1 (HU) AB, LB, TNP See_Comment Test not CSF (QUEST) (test performed. Reflex code = 3587365) testing not required since established criteriawas not met. [Automated message] The system which generated this result transmit chely reference range : <11 SI. The reference range was not used to interpret this result as normal/abnormal . ANNA2 (RI) AB, LB, TNP See_Comment Test not CSF (QUEST) (test performed. Reflex code = 8263486) testing not required since established criteriawas not met. [Automated message] The system which generated this result transmit chely reference range : <11 SI. The reference range was not used to interpret this result as normal/abnormal . PCA1 (YO) AB, LB, TNP See_Comment Test not CSF (QUEST) (test performed. Reflex code = 3800292) testing not required since established criteriawas not met. [Automated message] The system which generated this result transmit chely reference range : <11 SI. The reference range was not used to interpret this result as normal/abnormal . BUILDING APPRAISER-TR (DNER) AB, TNP See_Comment Test not LB, CSF (QUEST) performed. R eflex (test code = testing not 4985288) required since established criteriawas not met. [Automated [...] = Performing Lab EZ JUANA) [facility] [address] [place] [address] Mitchell Zhong MD, PhD, YOLY [facility] HospitalPARANEOPLAS AB,CBA,IFA,[id number] 12:39:35 Test Item Value Reference Range Interpretation [...] (test code Performing Lab EZ = JUANA) [employer] [facility] [address] [place] [address] Mitchell Zhong MD, PhD, [facility], [id number] 12:39:35 Test Item Value Reference Range Interpretation Comments NMDAR1,CBA TNP See_Comment Test not perfor med. IFA,TITER,CSF Reflex testing not (QUEST) (test required since code = established ) criteriawas not met. [Automated mess age] The system [employer] generated this result transmit chely reference range : <1:10. The refe rence range was not u sed to interpret th is result as normal/abnormal . JUANA (test code Performing Lab EZ = JUANA) [employer] [address] [place] [address] Mitchell Zhong MD, PhD, [facility], [id number] 12:39:35 Test Item Value Reference Range Interpretation Comments AMPAR1,CBA TNP See_Comment Test not perfor med. IFA,TITER,CSF Reflex testing not (QUEST) (test required since code = established ) criteriawas not met. [Automated mess age] The system [employer] generated this result transmit chely reference range : <1:10. The refe rence range was not u sed to interpret th is result as normal/abnormal . JUANA (test code Performing Lab EZ = JUANA) [employer] [facility] [address] [place] [address] Mitchell Zhong MD, PhD, [facility], [id number] 12:39:35 Test Item Value Reference Range Interpretation Comments AMPAR2,CBA TNP See_Comment Test not perfor med. IFA,TITER,CSF Reflex testing not (QUEST) (test required since code = established 3317282) criteriawas not met. [Automated mess age] The system [employer] generated this result transmit chely reference range : <1:10. The refe rence range was not u sed to interpret th is result as normal/abnormal . JUANA (test code Performing Lab EZ = JUANA) [employer] [address] [place] [address] Mitchell Zhong MD, PhD, [place] [facility] [facility], [id number] 12:39:35 Test Item Value Reference Range Interpretation Comments GABABR,CBA TNP See_Comment Test not perfor med. IFA,TITER,CSF Reflex testing not (QUEST) (test required since code = established 4954615) criteriawas not met. [Automated mess age] The system [employer] generated this result transmit chely reference range : <1:10. The refe rence range was not u sed to interpret th is result as normal/abnormal . JUANA (test code Performing Lab EZ = JUANA) [employer] [facility] [address] [place] [address] Mitchell Zhong MD, PhD, [facility], [id number] 12:39:35 Test Item Value Reference Range Interpretation Comments LGI1,CBA TNP See_Comment Test not perfor med. IFA,TITER,CSF Reflex testing not (QUEST) (test required since code = established 5338279) criteriawas not met. [Automated mess age] The system [employer] generated this result transmit chely reference range : <1:10. The refe rence range was not u sed to interpret th is result as normal/abnormal . JUANA (test code Performing Lab EZ = JUANA) [employer] [address] [place] [address] Mitchell Zhong MD, PhD, [place] [facility], [id number] 12:39:35 Test Item Value Reference Range Interpretation Comments CASPR2,CBA TNP See_Comment Test not perfor med. IFA,TITER,CSF Reflex testing not (QUEST) (test required since code = established ) criteriawas not met. [Automated mess age] The system [employer] h generated this result transmit chely reference range : <1:10. The refe rence range was not u sed to interpret th is result as normal/abnormal . JUANA (test code Performing Lab EZ = JUANA) [facility] [address] [place] [address] Mitchell Zhong MD, PhD, YOLY [facility] HospitalVGKC Antibody, [id number] 12:39:35 Test Item Value Reference Range Interpretation Comments VGKC AB, CSF TNP See_Comment Test not perfor med. (QUEST) (test Reflex testing not code = required since ) established criteriawas not met. [Automated mess age] The system [employer] generated this result transmit chely reference range : <20 pmol/L. The reference range was not used to interpret this result as normal/abnormal . JUANA (test code Performing Lab EZ = JUANA) [employer] [facility] [address] [place] [address] Mitchell Zhong MD, PhD, YOLY [facility] [id number] 11:18:12 Test Item Value Reference Range Interpretation Comments POC-GLUCOSE METER 102 mg/dL 70-110 : TESTED A T [facility] 6720 (BEAKER) (test code = [facility] [employer] [facility], 1538) 96980: Public Health Social Worker/Techni ilir ID = [id number] for eh, Akumbu POCT-GLUCOSE [id number] 07:46:23 Test Item Value Reference Range Interpretation Comments POC-GLUCOSE METER 88 mg/dL 70-110 : TESTED A T [facility] 6720 (BEAKER) (test code = [facility] [employer] [facility], 1538) 45424: Public Health Social Worker/Techni ilir ID = [id number] for Umeh , Akumbu BASIC METABOLIC [id number] 05:39:50 Test Item Value Reference Range Interpretation [...] not appl icable for dialysis patien ts Public Health Social Worker ID - HENRY WCBC W/PLT COUNT & AUTO [id number] 05:12:45 Test Item Value Reference Range Interpretation [...] PERCENT (BEAKER) (test code = 2801) POCT-GLUCOSE [id number] 21:27:14 Test Item Value Reference Range Interpretation Comments POC-GLUCOSE METER 100 mg/dL 70-110 : TESTED A T [facility] 6720 (BEAKER) (test code [facility], = 1538) 58354: Public Health Social Worker/Techni ilir ID = [id number] for Kike Ramos POCT-GLUCOSE [id number] 17:36:17 Test Item Value Reference Range Interpretation Comments POC-GLUCOSE METER 123 mg/dL 70-110 H : TESTED A T [facility] 6720 (BEAKER) (test code = [facility], 1538) 69328: Public Health Social Worker/Techni ilir ID = [id number] for Um eh, Akumbu VDRL, [id number] 15:16:52 Test Item Value Reference Range Interpretation Comments VDRL, CSF (test code = Nonreactive Nonreactive 5290-2) JUANA (test code = JUANA) TEST PERFORMED BY [facility] Lab Interpretation (test Normal code = 86461-3) [facility] HospitalOligoclonal [id number] 14:08:48 Test Item Value Reference Interpretation Comments Range Oligoclonal ABSENT ABSENT No oligoclonal bands Bands, CSF (test were identi fied in this code = 2537572) patient's CS F when compared tothei r corresponding s armando sample. Oligocl onal bands are prese nt in the CSF of more hiren n 85% of patients withcl inically definite multip le sclerosis (MS). To distinguish betweenoligoclo nal bands in the CSF due to a peripheral gamm opathy and oligoclonal bands due to local produc tion in the PLAYGROUND OFFICIAL, serum and CSF should be testedsimultane ously. Oligoclonal ban ds can however be obse rved in a variety ofother diseases, e.g., subacute sclerosing panencephalitis , inflammatorypol yneuropat hy, PLAYGROUND OFFICIAL lupus, and brain tumors and infa rctions. The clinicalsig nificance of a numerical band count, determin ed by isoelectric foc using,has not been defini tively defined. The da ta should be interpreted inconjunction w ith all pertinent clini dhaval and laboratory data for this patient. FINAL RESOLUTION (test code = 1864148) JUANA (test code = Performing Lab JUANA) EZ [place] [facility] [address] [place] [address] Mitchell Zhong MD, PhD, YOLY [facility] HospitalPO[facility] [id number] 11:49:53 Test Item Value Reference Range Interpretation Comments POC-GLUCOSE METER 116 mg/dL 70-110 H : TESTED A T [facility] 6720 ([employer]) (test code = [employer] [facility], 153) 60803: Public Health Social Worker/Techni ilir ID = [id number] for Um eh, Jameelumbu POCT-GLUCOSE [id number] 08:21:56 Test Item Value Reference Range Interpretation Comments POC-GLUCOSE METER 93 mg/dL 70-110 : TESTED A T [facility] 6720 ([employer] (V[employer])) (test code = [facility] [place] [employer] [facility], 153) 83453: Public Health Social Worker/Techni ilir ID = [id number] for Bailey Baez POCT-GLUCOSE [id number] 21:03:50 Test Item Value Reference Range Interpretation Comments POC-GLUCOSE METER 98 mg/dL 70-110 : TESTED A T [facility] 6720 (BEAKER) (test code = [facility], 1538) 87838: Public Health Social Worker/Techni ilir ID = [id number] for Bailey Baez POCT-GLUCOSE [id number] 20:53:34 Test Item Value Reference Range Interpretation Comments POC-GLUCOSE METER 126 mg/dL 70-110 H : TESTED A T [facility] 6720 (BEAKER) (test code [facility]ARIO [facility], = 1538) 73702: Public Health Social Worker/Techni ilir ID = [id number] for Kike Ramos POCT-GLUCOSE [id number] 17:03:39 Test Item Value Reference Range Interpretation Comments POC-GLUCOSE METER 91 mg/dL 70-110 : TESTED A T [facility] 6720 (BEAKER) (test code = [facility], 1538) 36569: Public Health Social Worker/Techni ilir ID = [id number] for Bailey Baez SARS-COV2/RT-PCR ([facility])2022-07-06 12:07:55 Test Item Value Reference Range Interpretation Comments SARS-COV2/RT-PCR Negative Negative The SARS-Co V-2 target (test code = nucleic acids a re not 6549035) detected in thi s specimen. Negative result [...] revoked sooner. Fact Sheet for Healthcare Providers: https://www.ShepHertz m/Documents/Xpert%20Xpress%20SARS%20CoV-2/Fact%20Sheets/302-3802%77FXNG-VIX-5%20 HEALTHCARE%20PROVIDERS%20FACT%20SHEET.pdf Fact Sheet for Healthcare Patients: https://www.Yakaz/Documents/Xpert%20Xp ress%20SARS%20CoV-2/Fact%20Sheets/302-3801%49NQCX-XMF-7%20PATIENT%20FACT%20SHEET .pdfPOCT-GLUCOSE [id number] 08:58:44 Test Item Value Reference Range Interpretation Comments POC-GLUCOSE METER 77 mg/dL 70-110 : TESTED A T [facility] 6720 (BEAKER) (test code = [facility], 153) 81833: Public Health Social Worker/Techni ilir ID = [id number] for Umeh , Akumbu POCT-GLUCOSE [id number] 22:01:05 Test Item Value Reference Range Interpretation Comments POC-GLUCOSE METER 128 mg/dL 70-110 H : TESTED A T [facility] 6720 (BEAKER) (test code = [facility], 153) 97745: Public Health Social Worker/Techni ilir ID = [id number] for Ty ler, Reshawn POCT-GLUCOSE [id number] 18:16:22 Test Item Value Reference Range Interpretation Comments POC-GLUCOSE METER 121 mg/dL 70-110 H : TESTED A T [facility] 6720 (BEAKER) (test code = [facility], 153) 43059: Public Health Social Worker/Techni ilir ID = [id number] for Um eh, Akumbu POCT-GLUCOSE [id number] 11:59:27 Test Item Value Reference Range Interpretation Comments POC-GLUCOSE METER 116 mg/dL 70-110 H : TESTED A T [facility] 6720 (BEAKER) (test code = [facility], 1538) 11428: Public Health Social Worker/Techni ilir ID = [id number] for Um eh, Jameelumbu POCT-GLUCOSE [id number] 08:22:12 Test Item Value Reference Range Interpretation Comments POC-GLUCOSE METER 122 mg/dL 70-110 H : TESTED A T [facility] 6720 (BEAKER) (test code = [facility], 1538) 67787: Public Health Social Worker/Techni ilir ID = [id number] for DELIO BANUELOS POCT-GLUCOSE [id number] 21:35:02 Test Item Value Reference Range Interpretation Comments POC-GLUCOSE METER 100 mg/dL 70-110 : TESTED A T [facility] 6720 (BEAKER) (test code = [facility], 153) 44832: Public Health Social Worker/Techni ilir ID = [id number] for Pravin Santos Protein Electrophoresis, [id number] 18:01:28 Test Item Value Reference Range Interpretation Comments Scan Result (test code = 8415935) Protein Refer to individual electrophoresis, CSF Protein Electrophoresis, (test code = 1484466) CSF results. [facility]PO[facility] [id number] 17:54:51 Test Item Value Reference Range Interpretation Comments POC-GLUCOSE METER 113 mg/dL 70-110 H : TESTED A T [facility] 6720 (BEAKER) (test code = [facility], 153) 90642: Public Health Social Worker/Techni ilir ID = [id number] for AZIZA US Angiotensin Converting Enzyme (CARROL)2022-07-04 13:59:36 Test Item Value Reference Range Interpretation Comments CARROL, Serum (test code = 6 U/L L ) JUANA (test code = JUANA) Performing Lab EZ [facility] [address] [place] [address] Mitchell Zhong MD, PhD, YOLY Lab Interpretation (test Abnormal code = 20325-7) [facility] HospitalIgG Index (CSF + Blood)2022-07-04 [...] Igg Index,Csf (test 0.6 <0.66 code = 3788062) Albumin, CSF (test 19.1 mg/dL 8.0-42.0 code = 4123553) IgG, CSF (test code 2.1 mg/dL 0.8-7.7 = 0809591) IMMUNOGLOBULIN G, 585 mg/dL 600-1540 L SERUM (test code = 7968137) Albumin, Serum (test 3.2 g/dL 3.2-4.6 The Ig G Synthesis code = 0987824) rate, CSF an d IgG index, CSF are two formulae forestimating t he amount of IgG produced in the central nervous system. Evidenc eof increased synthesis of Ig G provides suppor t for the diagnos is of multiplescleros is. JUANA (test code = Performing Lab EZ JUANA) [facility] [address] [place] [address] Mitchell Zhong MD, PhD, YOLY Lab Interpretation Abnormal (test code = 08142-2) [facility] HospitalAlbumin, [id number] 12:33:51 Test Item Value Reference Range Interpretation Comments Albumin, CSF (test 19.2 mg/dL 8.0-42.0 code = 9738572) JUANA (test code = Performing Lab EZ [facility] JUANA[facility] [address] [place] [address] Mitchell Zhong MD, PhD, YOLY [facility] HospitalPOCT[facility]SE [id number] 12:06:57 Test Item Value Reference Range Interpretation Comments POC-GLUCOSE METER 110 mg/dL 70-110 : TESTED A T [facility] 6720 ([employer] (V[employer])) (test code = [facility], 1538) 88503: Public Health Social Worker/Techni ilir ID = [id number] for AZIZA US POCT-GLUCOSE [id number] 08:50:56 Test Item Value Reference Range Interpretation Comments POC-GLUCOSE METER 90 mg/dL 70-110 : TESTED A T [facility] 6720 ([employer] ([employer])) (test code = [facility] [employer] [facility], 1538) 30330: Public Health Social Worker/Techni ilir ID = [id number] for AZIZA LAZO BASIC METABOLIC [id number] 05:06:42 Test Item Value Reference Range Interpretation [...] not appl icable for dialysis patien ts Public Health Social Worker ID - PIAYA LPOCT-GLUCOSE [id number] 20:41:02 Test Item Value Reference Range Interpretation Comments POC-GLUCOSE METER 122 mg/dL 70-110 H : TESTED A T [facility] 6720 (BEAKER) (test code ROSARIO [facility], = 1538) 03596: Public Health Social Worker/Techni ilir ID = [id number] for Kike Ramos POCT-GLUCOSE [id number] 18:02:41 Test Item Value Reference Range Interpretation Comments POC-GLUCOSE METER 121 mg/dL 70-110 H : TESTED A T [facility] 6720 (BEAKER) (test code = [facility], 1538) 66815: Public Health Social Worker/Techni ilir ID = [id number] for AZIZA US HTLV 1/2 [id number] 14:14:06 Test Item Value Reference Range Interpretation Comments Htlv1/2 Antibody Nonreactive Nonreactive (test code = 1601449) JUANA (test code = JUANA) Performing Lab 15 [place] [facility] [address] [place] [address] Dr [place], [place] Nathaniel Ceja MD, PhD [facility] HospitalAquaporin-4 (AQP4)(NMO-IgG) Antibody with Reflex to Titer, [id number] 12:47:40 Test Item Value Reference Range Interpretation Comments AQUAPORIN 4 AB, NEGATIVE NEGATIVE This test w as CBA, CSF (test developed and its code = 4691130) analytical p erformance characteristics havebeen determ ined by [facility] .It has not been cleare d or approved by FDA . This assay has been validatedpursua nt to the CLIA regula tions and is used for clinical purpos es. AQUAPORIN 4 AB, TNP See_Comment Test not per formed. TITER, CSF Reflex testing not (test code = required since 2960537) established cri teriawas not met. This t est was developed and i ts analytical perf ormance characteristics havebeen determ ined by [facility] .It has not been cleare d or [...] (test code Performing Lab EZ = JUANA) [place] [facility] [address] [place] [address] Mitchell Zhong MD, PhD, YOLY [facility] HospitalPOCT[facility]GLU[facility]SE [id number] 12:31:33 Test Item Value Reference Range Interpretation Comments POC-GLUCOSE METER 103 mg/dL 70-110 : TESTED A T [facility] 6720 (BEAKER) (test code = [place], 1538) 91098: Public Health Social Worker/Techni ilir ID = [id number] for AZIZA US POCT-GLUCOSE [id number] 08:32:03 Test Item Value Reference Range Interpretation Comments POC-GLUCOSE METER 97 mg/dL 70-110 : TESTED A T [facility] 6720 (BEAKER) (test code = [facility], 1538) 88400: Public Health Social Worker/Techni ilir ID = [id number] for AZIZA LAZO BASIC METABOLIC [id number] 06:39:57 Test Item Value Reference Range Interpretation [...] not appl icable for dialysis patien ts Public Health Social Worker ID - PIAYA LPOCT-GLUCOSE [id number] 20:58:25 Test Item Value Reference Range Interpretation Comments POC-GLUCOSE METER 122 mg/dL 70-110 H : TESTED A T [facility] 6720 (BEAKER) (test code [facility], = 1538) 85958: Public Health Social Worker/Techni ilir ID = [id number] for Kike Ramos POCT-GLUCOSE [id number] 17:53:38 Test Item Value Reference Range Interpretation Comments POC-GLUCOSE METER 85 mg/dL 70-110 : TESTED A T [facility] 6720 (BEAKER) (test code = [facility], 1538) 88429: Public Health Social Worker/Techni ilir ID = [id number] for WILL IAMS, TYNEKA CSF culture + gram [id number] 13:31:36 Test Item Value Reference Range Interpretation Comments Result (test code = 6463-4) No growth Gram Stain Result (test No organisms seen code = 1123) [facility] HospitalCSF CULTURE + GRAM [id number] 13:31:36 Test Item Value Reference Range Interpretation Comments CULTURE (BEAKER) (test code No growth = 1095) GRAM STAIN RESULT (BEAKER) <1+ WBCs (test code = 1123) GRAM STAIN RESULT (BEAKER) No organisms seen (test code = 33112) POCT-GLUCOSE [id number] 11:52:03 Test Item Value Reference Range Interpretation Comments POC-GLUCOSE METER 114 mg/dL 70-110 H : TESTED A T [facility] 6720 (BEAKER) (test code = [facility], 1538) 98948: Public Health Social Worker/Techni ilir ID = [id number] for [place] LLIAMS, TYNEKA POCT-GLUCOSE [id number] 08:01:37 Test Item Value Reference Range Interpretation Comments POC-GLUCOSE METER 115 mg/dL 70-110 H : TESTED A T [facility] 6720 (BEAKER) (test code = [facility], 1538) 75999: Public Health Social Worker/Techni ilir ID = [id number] for [place] LLIAMS, TYNEKA POCT-GLUCOSE [id number] 21:43:01 Test Item Value Reference Range Interpretation Comments POC-GLUCOSE METER 105 mg/dL 70-110 : TESTED A T [facility] 6720 (BEAKER) (test code = [facility], 1538) 63859: Public Health Social Worker/Techni ilir ID = [id number] for Giovanni brianPoonam POCT-GLUCOSE [id number] 17:40:43 Test Item Value Reference Range Interpretation Comments POC-GLUCOSE METER 113 mg/dL 70-110 H : TESTED A T [facility] 6720 (BEAKER) (test code = [facility], 153) 63419: Public Health Social Worker/Techni ilir ID = [id number] for Tami Negrete POCT-GLUCOSE [id number] 13:10:45 Test Item Value Reference Range Interpretation Comments POC-GLUCOSE METER 80 mg/dL 70-110 : TESTED A T [facility] 6720 (BEAKER) (test code = [facility], 153) 73521: Public Health Social Worker/Techni ilir ID = [id number] for MART ALFONZO, ANGELO POCT-GLUCOSE [id number] 08:22:15 Test Item Value Reference Range Interpretation Comments POC-GLUCOSE METER 98 mg/dL 70-110 : TESTED A T [facility] 6720 (BEAKER) (test code = [facility], [facility]) 13488: Public Health Social Worker/Techni ilir ID = [id number] for MART ALFONZO, ANGELO POCT-GLUCOSE [id number] 08:21:39 Test Item Value Reference Range Interpretation Comments POC-GLUCOSE METER 116 mg/dL 70-110 H : TESTED A T [facility] 6720 (BEAKER) (test code = [facility], 153) 22234: Public Health Social Worker/Techni ilir ID = [id number] for YASMEEN RODRIGUEZINEZ, ANGELO POCT-GLUCOSE [id number] 22:14:07 Test Item Value Reference Range Interpretation Comments POC-GLUCOSE METER 125 mg/dL 70-110 H : TESTED A T [facility] 6720 (BEAKER) (test code = [facility], 153) 08649: Public Health Social Worker/Techni ilir ID = [id number] for TAYA CAGE Paraneoplastic Panel, [id number] 18:00:30 Test Item Value Reference Range Interpretation Comments PARANEOPLASTIC AB CSF Refer to Individual AUTOVERIFICATION (test Test Results code = 396031663053) [facility] HospitalPO[facility] [id number] 12:31:21 Test Item Value Reference Range Interpretation Comments POC-GLUCOSE METER 104 mg/dL 70-110 : TESTED A T [facility] 6720 (BEAKER) (test code = [facility], 1538) 89259: Public Health Social Worker/Techni ilir ID = [id number] for MADISON CARREROILIA POCT-GLUCOSE [id number] 12:31:20 Test Item Value Reference Range Interpretation Comments POC-GLUCOSE METER 89 mg/dL 70-110 : TESTED A T [facility] 6720 (BEAKER) (test code = [facility], 1538) 13767: Public Health Social Worker/Techni ilir ID = [id number] for RONIT MEJÍA ANGELO POCT-GLUCOSE [id number] 08:48:55 Test Item Value Reference Range Interpretation Comments POC-GLUCOSE METER 149 mg/dL 70-110 H : TESTED A T [facility] 6720 (BEAKER) (test code = [facility], 1538) 74196: Public Health Social Worker/Techni ilir ID = [id number] for CHERYL THOMPSON BASIC METABOLIC [id number] 05:43:18 Test Item Value Reference Range Interpretation [...] not appl icable for dialysis patien ts Public Health Social Worker ID - ADMINPOCT-GLUCOSE [id number] 22:14:54 Test Item Value Reference Range Interpretation Comments POC-GLUCOSE METER 105 mg/dL 70-110 : TESTED A T [facility] 6720 (BEAKER) (test code = [facility], 1538) 94281: Public Health Social Worker/Techni ilir ID = [id number] for TAYA CAGE CSF cell count with [id number] 19:27:29 Test Item Value Reference Range Interpretation Comments Appearance (test code Clear Clear = 92062-9) Color (test code = Colorless Colorless 68166-0) RBCs (test code = 0 See_Comment [Automate [...] RBCs Fresh? (test Not Applicable code = 71705-9) # of Cells Diff'd 1 (test code = 30977-1) % Neutros (test code 0 % 0-5 = 92058-5) % Lymphs (test code = 100 % 40-80 H 03494-5) % Monos (test code = 0 % [...] 2677) Lab Interpretation Abnormal (test code = 35034-5) [facility] HospitalCSF CELL COUNT W/[id number] 19:27:29 Test Item Value Reference Range Interpretation [...] 1 (BEAKER) (test code = 2678) POCT-GLUCOSE [id number] 19:00:46 Test Item Value Reference Range Interpretation Comments POC-GLUCOSE METER 133 mg/dL 70-110 H : TESTED A T [facility] 6720 (BEAKER) (test code = [employer] [facility], 1538) 46008: Public Health Social Worker/Techni ilir ID = [id number] for MA RTINEZ, ANGELO POCT-GLUCOSE [id number] 19:00:39 Test Item Value Reference Range Interpretation Comments POC-GLUCOSE METER 97 mg/dL 70-110 : TESTED A T [facility] 6720 (BEAKER) (test code = [facility] [employer] [facility], 1538) 56725: Public Health Social Worker/Techni ilir ID = [id number] for MART ALFONZO, ANGELO Glucose, [id number] 18:01:05 Test Item Value Reference Range Interpretation Comments Glucose, CSF (test code = 49 mg/dL 40-70 2342-4) JUANA (test code = JUANA) Public Health Social Worker ID - ADMIN Lab Interpretation (test Normal code = 74505-4) [facility] HospitalProtein, [id number] 18:01:05 Test Item Value Reference Range Interpretation Comments Protein, CSF (test code = 33 mg/dL 15-45 2880-3) JUANA (test code = JUANA) Public Health Social Worker ID - ADMIN Lab Interpretation (test Normal code = 49668-8) [facility] HospitalGLUCOSE, [id number] 18:01:05 Test Item Value Reference Range Interpretation Comments GLUCOSE CSF (BEAKER) (test code = 49 mg/dL 40-70 406) Public Health Social Worker ID - ADMINPROTEIN, [id number] 18:01:05 Test Item Value Reference Range Interpretation Comments PROTEIN CSF (BEAKER) (test code = 33 mg/dL 15-45 378) Public Health Social Worker ID - ADMINSARS-COV2/RT-PCR ([facility])2022-06-29 18:00:56 Test Item Value Reference Range Interpretation Comments SARS-COV2/RT-PCR Negative Negative The SARS-Co V-2 target (test code = nucleic acids a re not 8165855) detected in thi s specimen. Negative result [...] revoked sooner. Fact Sheet for Healthcare Providers: https://www.ShepHertz m/Documents/Xpert%20Xpress%20SARS%20CoV-2/Fact%20Sheets/302-3802%25TVWH-CSE-1%20 HEALTHCARE%20PROVIDERS%20FACT%20SHEET.pdf Fact Sheet for Healthcare Patients: https://www.Yakaz/Documents/Xpert%20Xp ress%20SARS%20CoV-2/Fact%20Sheets/302-3801%21WCTQ-QON-9%20PATIENT%20FACT%20SHEET .pdfBALIVINGSTON [facility] METABOLIC [id number] 03:47:07 Test Item Value Reference Range Interpretation [...] not appl icable for dialysis patien ts Public Health Social Worker ID - PIAYA LCBC W/PLT COUNT & AUTO [id number] 03:27:59 Test Item Value Reference Range Interpretation [...] PERCENT (AKER) (test code = 2801) POCT-GLUCOSE [id number] 22:06:55 Test Item Value Reference Range Interpretation Comments POC-GLUCOSE METER 118 mg/dL 70-110 H : TESTED A T [facility] 6720 ([facility]) (test code = [facility], [facility]8) 08178: Public Health Social Worker/Techni ilir ID = [id number] for Poonam Alfred POCT-GLUCOSE [id number] 12:59:43 Test Item Value Reference Range Interpretation Comments POC-GLUCOSE METER 113 mg/dL 70-110 H : TESTED A T [facility] 6720 ([facility]) (test code = [facility], [facility]8) 94201: Public Health Social Worker/Techni ilir ID = [id number] for RO DGERS, JAMECA POCT-GLUCOSE [id number] 08:25:18 Test Item Value Reference Range Interpretation Comments POC-GLUCOSE METER 91 mg/dL 70-110 : TESTED A T [facility] 6720 ([facility]) (test code = [facility], [facility]8) 91879: Public Health Social Worker/Techni ilir ID = [id number] for RODG ERS, JAMECA POCT-GLUCOSE [id number] 01:54:22 Test Item Value Reference Range Interpretation Comments POC-GLUCOSE METER 114 mg/dL 70-110 H : TESTED A T [facility] 6720 ([facility]) (test code = [facility], [facility]8) 75507: Public Health Social Worker/Techni ilir ID = [id number] for DIANA JEZONJOSE CTTA POCT-GLUCOSE [id number] 16:59:04 Test Item Value Reference Range Interpretation Comments POC-GLUCOSE METER 122 mg/dL 70-110 H : TESTED A T [facility] 6720 ([facility]) (test code = [facility], [facility]8) 22052: Public Health Social Worker/Techni ilir ID = [id number] for RO DGERS, JAMECA POCT-GLUCOSE [id number] 12:45:25 Test Item Value Reference Range Interpretation Comments POC-GLUCOSE METER 145 mg/dL 70-110 H : TESTED A T [facility] 6720 (BEAKER) (test code = [place], 1538) 43837: Public Health Social Worker/Techni ilir ID = [id number] for CHERYL THOMPSON POCT-GLUCOSE [id number] 00:05:46 Test Item Value Reference Range Interpretation Comments POC-GLUCOSE METER 171 mg/dL 70-110 H : TESTED A T [facility] 6720 (BEAKER) (test code = [facility], 1538) 36819: Public Health Social Worker/Techni ilir ID = [id number] for KRISTINE WALTER BASIC METABOLIC [id number] 06:59:12 Test Item Value Reference Range Interpretation [...] not appl icable for dialysis patien ts Public Health Social Worker ID - PIAYA [id number] 06:59:12 Test Item Value Reference Range Interpretation Comments MAGNESIUM (BEAKER) (test code = 1.7 mg/dL 1.6-2.6 627) Public Health Social Worker ID - PIAYA LCBC W/PLT COUNT & AUTO [id number] 06:42:11 Test Item Value Reference Range Interpretation [...] W/Doppler(CW/PW/Color)2022-06-25 15:54:03Ejection FractionSLEH ECHO HEARTLAB MKCKESSON CPACSCHI [facility] HospitalMR, SPINE, LUMBAR, WITH 2022-06-24 14:06:00Unlisted Reason for Exam - Click Yes and Enter Reason Below->NoFLOR [facility] : 1960 Sex: [...] posterior cervical spinal cord on the large zjtbi-po-dkvx images There is no significant foraminal or [...] Verified Date/Time: 06/24/2022 14:06:49 MR, SPINE, THORACIC, [id number] 14:06:00Unlisted Reason for Exam - Click Yes and Enter Reason Below->No [facility] : 1960 Sex: MFINAL [...] posterior cervical spinal cord on the large femnd-ps-fzfo images There is no significant foraminal or [...] superior L1-L3 vertebral bodies. Signed: Maddie Mcfarland [facility] Verified Date/Time: 06/24/2022 14:06:49 CT, HENRIKNGPATI [id number] 14:36:00MRB with subacute infarctsUnlisted Reason for Exam - Click Yes and Enter Reason Below->No [facility] : 1960 Sex: MFINAL [...] MDReport Verified Date/Time: 06/23/2022 14:36:05 CT, CAROTID, [id number] 14:36:00MRB with subacute infarctsUnlisted Reason for Exam - Click Yes and Enter Reason Below->No [facility] : 1960 Sex: MFINAL [...] Verified Date/Time: 06/23/2022 14:36:05 MR, SPINE, CERVICAL, [id number] 13:12:00Unlisted Reason for Exam - Click Yes and Enter Reason Below->No [facility] : 1960 Sex: MFINAL [...] sclerosis. No associated enhancement. Signed: Maddie Mcfarland [facility] Verified Date/Time: 06/23/2022 13:12:55 [id number] 12:52:03 Test Item Value Reference Range Interpretation Comments RPR SCREEN (SANAM) (test code = Nonreactive Nonreactive 420) HEMOGLOBIN [id number] 12:40:19 Test Item Value Reference Range Interpretation Comments HEMOGLOBIN A1C 5.5 % See_Comment [Automated m essage] ELECTROPHORESIS ([employer] ([employer])) The system which (test code = 3811) generated this result transmitted ref erence range: <=5.6%. The reference range was not used to int erpret this result as normal/abnormal . "The A1c is measured using a NGSP-certified method. HbA1c value equal to or greater than 6.5% as thediagnosis cutoff for diabetes. An HbA1c value of 5.7- 6.4% indicates increased risk for diabetes (prediabetes)."Public Health Social Worker ID - ADM TSH/FREE T4 IF [id number] 12:29:54 Test Item Value Reference Range Interpretation Comments THYROID STIMULATING HORMONE 1.690 uIU/mL 0.350-4.940 ([employer] ([employer])) (test code = 772) Public Health Social Worker ID - MARCOLIPID [id number] 12:03:12 Test Item Value Reference Range Interpretation Comments TRIGLYCERIDES ([employer] ([employer])) (test code = 37 mg/dL 540) CHOLESTEROL ([employer] ([employer])) (test code = 102 mg/dL 631) HDL CHOLESTEROL ([employer] ([employer])) (test code 43 mg/dL = 976) LDL CHOLESTEROL CALCULATED ([employer] ([employer])) 52 mg/dL (test code = 633) Triglyceride Reference Range: Low Risk <150 Borderline 150-199 High Risk 200- 499 Very High Risk >=500Cholesterol Reference Range: Low Risk <200 Borderline 200-239 High Risk >240HDL Cholesterol Reference Range: Low Risk >=60 High Risk <40LDL Cholesterol Reference Range: Optimal <100 Near Optimal 100-129 Borderline 130-159 High 160-189 Very High >=190 Public Health Social Worker ID - WILLIAM, BRAIN, [id number] 09:35:00Reason for exam:->Biletral LE weakness What is the patient's sedation requirement?->No Sedation [facility] : 1960 Sex: MFINAL [...] may represent sequela of hypertension. Signed:Maddie Mcfarland [facility] Verified Date/Time: 06/23/2022 09:35:32 BASIC METABOLIC [id number] 04:52:25 Test Item Value Reference Range Interpretation [...] not appl icable for dialysis patien ts Public Health Social Worker ID - DORIRS-COV2/RT-PCR ([facility])2022-06-22 10:57:50 Test Item Value Reference Range Interpretation Comments SARS-COV2/RT-PCR Negative Negative The SARS-Co V-2 target (test code = nucleic acids a re not 7928169) detected in thi s specimen. Negative result [...] revoked sooner. Fact Sheet for Healthcare Providers: https://www.[employer]z m/Documents/Xpert%20Xpress%20SARS%20CoV-2/Fact%20Sheets/302-3802%13WVES-MPR-8%20 HEALTHCARE%20PROVIDERS%20FACT%20SHEET.pdf Fact Sheet for Healthcare Patients: https://www.[employer]/Documents/Xpert%20Xp ress%20SARS%20CoV-2/Fact%20Sheets/302-3801%25NAGO-KQG-7%20PATIENT%20FACT%20SHEET .pdfBALIVINGSTON [facility] METABOLIC [id number] 06:52:29 Test Item Value Reference Range Interpretation [...] not appl icable for dialysis patien ts Public Health Social Worker ID - EVELIA PAINTINGASIC METABOLIC [id number] 02:11:54 Test Item Value Reference Range Interpretation [...] not appl icable for dialysis patien ts Public Health Social Worker ID - ALEKSEY MVITAMIN [id number] 17:51:59 Test Item Value Reference Range Interpretation Comments VITAMIN B12 (BEAKER) (test code = 480 pg/mL 213-527 654) Public Health Social Worker ID - BSRAD, ANKLE, MIN 3 VIEWS, [id number] 15:52:00Reason for exam:->hx of falls and severe ankle painShould this be performed at the bedside?->Yes[facility] : 1960 Sex: MFINAL REPORT Clinical history: hx of falls and severe ankle pain TECHNIQUE: 3 views of the bilateral ankles COMPARISON: None IMPRESSION: Both ankles are intact without fracture or dislocation. Signed: Beth Stark Verified Date/Time: 06/19/2022 15:52:39 Reading Location: [address] Reading Room RAD, ANKLE, MIN 3 VIEWS, [id number] 15:52:00Reason for exam:->hx of falls and severe bilateral ankle painShould this be performed at the bedside?->Yes [facility] : 1960 Sex: MFINAL REPORT Clinical history: hx of falls and severe ankle pain TECHNIQUE: 3 views of the bilateral ankles COMPARISON: None IMPRESSION: Both ankles are intact without fracture or dislocation. Signed: Beth Stark Verified Date/Time: 06/19/2022 15:52:39 Reading Location: [address] Reading Room URIC [id number] 12:29:59 Test Item Value Reference Range Interpretation Comments URIC ACID (BEAKER) (test code = 6.1 mg/dL 2.6-7.2 773) Public Health Social Worker ID - MARCOPROTHROMBIN TIME/[id number] 06:12:42 Test Item Value Reference Range Interpretation Comments PROTIME (BEAKER) 13.1 seconds 11.9-14.2 (test code = 759) INR (BEAKER) (test 1.06 See_Comment [Automat ed message] code = 370) The system [employer] generated this result transmitted ref erence range: <=5.90. The reference range was not used to int erpret this result as normal/abnormal . RECOMMENDED COUMADIN/WARFARIN INR THERAPY RANGESSTANDARD DOSE: 2.0 - 3.0 Includes: PROPHYLAXIS for venous thrombosis, systemic embolization; TREATMENT for venous thrombosis and/or pulmonary embolus.HIGH RISK: Target INR is 2.5-3.5 for patients with mechanical heart valves.[id number] 05:42:51 Test Item Value Reference Range Interpretation Comments MAGNESIUM (BEAKER) (test code = 1.7 mg/dL 1.6-2.6 627) Public Health Social Worker ID - MARCOBASIC METABOLIC [id number] 05:42:50 Test Item Value Reference Range Interpretation [...] not appl icable for dialysis patien ts Public Health Social Worker ID - MARCOCBC W/PLT COUNT & AUTO [id number] 05:28:00 Test Item Value Reference Range Interpretation [...] PERCENT (BEAKER) (test code = 2801) POC-Glucose [id number] 11:50:45 Test Item Value Reference Range Interpretation Comments POC-Glucose Meter (test 116 mg/dL 70-110 H : TE STED AT [facility] code = 1538) [address] [facility], 770 30: Public Health Social Worker/Techni ilir ID = [id number] for MATIAS ROB Lab Interpretation (test Abnormal code = 05699-9) [facility] [id number] 11:50:45 Test Item Value Reference Range Interpretation Comments POC-GLUCOSE METER 116 mg/dL 70-110 H : [facility] (BEAKER) (test code = [facility], 1538) 40383: Public Health Social Worker/Techni ilir ID = [id number] for HU NTER, HIWITHA POCT-GLUCOSE [id number] 07:12:04 Test Item Value Reference Range Interpretation Comments POC-GLUCOSE METER 100 mg/dL 70-110 : TESTED A T [facility] 6720 (BEAKER) (test code = [facility], 1538) 96574: Public Health Social Worker/Techni ilir ID = [id number] for HU NTER, HIWITHA BASIC METABOLIC [id number] 05:05:52 Test Item Value Reference Range Interpretation [...] not appl icable for dialysis patien ts Public Health Social Worker ID - HENRY WCBC W/PLT COUNT & AUTO [id number] 04:17:24 Test Item Value Reference Range Interpretation [...] PERCENT (BEAKER) (test code = 2801) POCT-GLUCOSE [id number] 21:09:21 Test Item Value Reference Range Interpretation Comments POC-GLUCOSE METER 119 mg/dL 70-110 H : TESTED A T [facility] 6720 (BEAKER) (test code = [facility], 153) 31659: Public Health Social Worker/Techni ilir ID = [id number] for ISAIAS ASHRAF SE POCT-GLUCOSE [id number] 16:49:45 Test Item Value Reference Range Interpretation Comments POC-GLUCOSE METER 87 mg/dL 70-110 : TESTED A T [facility] 6720 (BEAKER) (test code = [facility], 153) 31482: Public Health Social Worker/Techni ilir ID = [id number] for BRIANVELIA MARIE POCT-GLUCOSE [id number] 12:12:01 Test Item Value Reference Range Interpretation Comments POC-GLUCOSE METER 97 mg/dL 70-110 : TESTED A T [facility] 6720 (BEAKER) (test code = [place], 1538) [address]: Public Health Social Worker/Techni ilir ID = [id number] for MARIE TALAVERA POCT-GLUCOSE [id number] 08:24:18 Test Item Value Reference Range Interpretation Comments POC-GLUCOSE METER 95 mg/dL 70-110 : TESTED A T [facility] 6720 (BEAKER) (test code = [facility], 1538) 62681: Public Health Social Worker/Techni ilir ID = [id number] for MARIE TALAVERA BASIC METABOLIC [id number] 06:41:00 Test Item Value Reference Range Interpretation [...] not appl icable for dialysis patien ts Public Health Social Worker ID - ALEKSEY MCBC W/PLT COUNT & AUTO [id number] 05:06:23 Test Item Value Reference Range Interpretation [...] PERCENT (BEAKER) (test code = 2801) POCT-GLUCOSE [id number] 21:14:48 Test Item Value Reference Range Interpretation Comments POC-GLUCOSE METER 123 mg/dL 70-110 H : TESTED A T [facility] 6720 (BEAKER) (test code = [facility], 1538) 76025: Public Health Social Worker/Techni ilir ID = [id number] for PE RALISAURO, SUDHA POCT-GLUCOSE [id number] 17:25:39 Test Item Value Reference Range Interpretation Comments POC-GLUCOSE METER 108 mg/dL 70-110 : TESTED A T [facility] 6720 (BEAKER) (test code = [facility], 1538) 11246: Public Health Social Worker/Techni ilir ID = [id number] for CO RTEZ, JILLIAN POCT-GLUCOSE [id number] 11:16:40 Test Item Value Reference Range Interpretation Comments POC-GLUCOSE METER 151 mg/dL 70-110 H : TESTED A T [facility] 6720 (BEAKER) (test code = [facility], 1538) 87301: Public Health Social Worker/Techni ilir ID = [id number] for CO RTEZ, JILLIAN POCT-GLUCOSE [id number] 07:40:07 Test Item Value Reference Range Interpretation Comments POC-GLUCOSE METER 91 mg/dL 70-110 : TESTED A T [facility] 6720 (BEAKER) (test code = [facility], 1538) 28712: Public Health Social Worker/Techni ilir ID = [id number] for BHAVANI EZ, JILLIAN BASIC METABOLIC [id number] 05:19:53 Test Item Value Reference Range Interpretation [...] not appl icable for dialysis patien ts Public Health Social Worker ID - PIAYA LCBC W/PLT COUNT & AUTO [id number] 04:32:38 Test Item Value Reference Range Interpretation [...] PERCENT (BEAKER) (test code = 2801) POCT-GLUCOSE [id number] 20:55:14 Test Item Value Reference Range Interpretation Comments POC-GLUCOSE METER 103 mg/dL 70-110 : TESTED A T [facility] 6720 (BEAKER) (test code = [facility], 153) 83030: Public Health Social Worker/Techni ilir ID = [id number] for SUDHA NEWMAN POCT-GLUCOSE [id number] 17:10:50 Test Item Value Reference Range Interpretation Comments POC-GLUCOSE METER 102 mg/dL 70-110 : TESTED A T [facility] 6720 (BEAKER) (test code = [facility], 1538) 42865: Public Health Social Worker/Techni ilir ID = [id number] for [place] LLIAMS, TYNEKA POCT-GLUCOSE [id number] 11:36:44 Test Item Value Reference Range Interpretation Comments POC-GLUCOSE METER 81 mg/dL 70-110 : TESTED A T [facility] 6720 (BEAKER) (test code = [facility], 1538) 36449: Public Health Social Worker/Techni ilir ID = [id number] for WILL IAMS, TYNEKA SARS-CoV2/RT-PCR (Asymptomatic ONLY)2022-06-06 09:22:33 Test Item Value Reference Interpretation Comments Range SARS-COV2/RT-PCR Negative Negative The SARS-Co V-2 (test code = target nucleic 17862-2) acids are not detected in thi s [...] revoked sooner. Fact Sheet for Healthcare Providers: https://www.[employer]/Documents/Xp ert%20Xpress%20SAR S%20CoV-2/Fact%20S heets/302-3802%20S ARS-COV-2%20HEALTH CARE%20PROVIDERS%2 0FACT%20SHEET.pdf Fact Sheet for Healthcare Patients: https://www.[employer]/Documents/Xp ert%20Xpress%20SAR S%20CoV-2/Fact%20S heets/302-3801%20S ARS-COV-2%20PATIEN T%20FACT%20SHEET.p df Lab Interpretation Normal (test code = 23952-9) [facility] ([facility])2022-06-06 09:22:33 Test Item Value Reference Range Interpretation Comments SARS-COV2/RT-PCR Negative Negative The SARS-Co V-2 target (test code = nucleic acids a re not 9155237) detected in thi s specimen. Negative result [...] revoked sooner. Fact Sheet for Healthcare Providers: https://www.ShepH[employer] m/Documents/Xpert%20Xpress%20SARS%20CoV-2/Fact%20Sheets/302-3802%88LTKO-DPW-1%20 HEALTHCARE%20PROVIDERS%20FACT%20SHEET.pdf Fact Sheet for Healthcare Patients: https://www.[employer]/Documents/Xpert%20Xp ress%20SARS%20CoV-2/Fact%20Sheets/302-3801%70SZVA-TMU-3%20PATIENT%20FACT%20SHEET .pdfPOCT-GLUCOSE [id number] 07:37:53 Test Item Value Reference Range Interpretation Comments POC-GLUCOSE METER 96 mg/dL 70-110 : TESTED A T [facility] 6720 ([facility]) (test code = [place], 1538) 18120: Public Health Social Worker/Techni ilir ID = [id number] for LATANYA KRISHNAMURTHY BASIC METABOLIC [id number] 06:34:19 Test Item Value Reference Range Interpretation [...] not appl icable for dialysis patien ts Public Health Social Worker ID - PIAYA LCBC W/PLT COUNT & AUTO [id number] 05:38:02 Test Item Value Reference Range Interpretation [...] PERCENT (BEAKER) (test code = 2801) POCT-GLUCOSE [id number] 21:00:32 Test Item Value Reference Range Interpretation Comments POC-GLUCOSE METER 122 mg/dL 70-110 H : TESTED A T [facility] 6720 (BEAKER) (test code = [facility] [employer] [facility], 1538) 66831: Public Health Social Worker/Techni ilir ID = [id number] for HENRIQUE HERNANDEZ POCT-GLUCOSE [id number] 12:05:11 Test Item Value Reference Range Interpretation Comments POC-GLUCOSE METER 101 mg/dL 70-110 : TESTED A T [facility] 6720 (BEAKER) (test code = [facility] [employer] [facility], 1538) 11517: Public Health Social Worker/Techni ilir ID = [id number] for MATIAS OLMSTEAD POCT-GLUCOSE [id number] 06:58:14 Test Item Value Reference Range Interpretation Comments POC-GLUCOSE METER 99 mg/dL 70-110 : TESTED A T [facility] 6720 (BEAKER) (test code = [place], 1538) 17165: Public Health Social Worker/Techni ilir ID = [id number] for KERMIT LOYD, PELONWITHA BASIC METABOLIC [id number] 05:22:21 Test Item Value Reference Range Interpretation [...] not appl icable for dialysis patien ts Public Health Social Worker ID - PIAYA LCBC W/PLT COUNT & AUTO [id number] 04:36:55 Test Item Value Reference Range Interpretation [...] PERCENT (BEAKER) (test code = 2801) POCT-GLUCOSE [id number] 20:58:57 Test Item Value Reference Range Interpretation Comments POC-GLUCOSE METER 96 mg/dL 70-110 : TESTED A T [facility] 6720 (BEAKER) (test code = [facility] [employer] [facility], 1538) 14239: Public Health Social Worker/Techni ilri ID = [id number] for HENRIQUE PLASCENCIA POCT-GLUCOSE [id number] 16:29:29 Test Item Value Reference Range Interpretation Comments POC-GLUCOSE METER 137 mg/dL 70-110 H : TESTED A T [facility] 6720 (BEAKER) (test code = [facility], 1538) 81719: Public Health Social Worker/Techni ilir ID = [id number] for HU NTER, HIWITHA POCT-GLUCOSE [id number] 11:41:40 Test Item Value Reference Range Interpretation Comments POC-GLUCOSE METER 115 mg/dL 70-110 H : TESTED A T [facility] 6720 (BEAKER) (test code = [facility] [employer] [facility], 1538) 87713: Public Health Social Worker/Techni ilir ID = [id number] for HU NTER, HIWITHA CT, CHEST, WITH [id number] 07:53:00Reason for exam:->concern for metastatic diseaseWhat is the patient's sedation requirement?->No Sedation [facility] : 1960 Sex: MFINAL [...] right common iliac artery. Signed: Jeramy Sarabia [facility] Verified Date/Time: 06/04/2022 07:53:54 CT, [id number] 07:53:00Unlisted Reason for Exam - Click Yes and Enter Reason Below- >YesUnlisted Reason for Exam->ischemic bowel and hx of colon cancerIs this for enterography?->NoWill this procedure require oral contrast?->Yes [facility] : 1960 Sex: MFINAL [...] Jeramy Sarabiaepinessa Verified Date/Time: 06/04/2022 07:53:54 POCT-GLUCOSE [id number] 06:55:58 Test Item Value Reference Range Interpretation Comments POC-GLUCOSE METER 95 mg/dL 70-110 : TESTED A T [facility] 6720 (BEAKER) (test code = [place], 1538) [address]: Public Health Social Worker/Techni ilir ID = [id number] for MATIAS WOODRUFF BASIC METABOLIC [id number] 06:20:56 Test Item Value Reference Range Interpretation [...] not appl icable for dialysis patien ts Public Health Social Worker ID - BSCBC W/PLT COUNT & AUTO [id number] 05:27:59 Test Item Value Reference Range Interpretation [...] PERCENT (BEAKER) (test code = 2801) POCT-GLUCOSE [id number] 21:20:45 Test Item Value Reference Range Interpretation Comments POC-GLUCOSE METER 115 mg/dL 70-110 H : TESTED A T [facility] 6720 (BEAKER) (test code = [facility], 1538) 71756: Public Health Social Worker/Techni ilir ID = [id number] for Es tahminaoza, Ashley POCT-GLUCOSE [id number] 17:16:19 Test Item Value Reference Range Interpretation Comments POC-GLUCOSE METER 114 mg/dL 70-110 H : TESTED A T [facility] 6720 (BEAKER) (test code = [facility], 1538) 60322: Public Health Social Worker/Techni ilir ID = [id number] for Am ador, Doe POCT-GLUCOSE [id number] 11:17:49 Test Item Value Reference Range Interpretation Comments POC-GLUCOSE METER 117 mg/dL 70-110 H : TESTED A T [facility] 6720 (BEAKER) (test code = [facility], 1538) 96383: Public Health Social Worker/Techni ilir ID = [id number] for Am ador, Doe POCT-GLUCOSE [id number] 07:38:05 Test Item Value Reference Range Interpretation Comments POC-GLUCOSE METER 106 mg/dL 70-110 : TESTED A T [facility] 6720 (BEAKER) (test code = [facility], 1538) 50184: Public Health Social Worker/Techni ilir ID = [id number] for Am ador, Doe BASIC METABOLIC [id number] 05:34:55 Test Item Value Reference Range Interpretation [...] not appl icable for dialysis patien ts Public Health Social Worker ID - ALEKSEY MCBC W/PLT COUNT & AUTO [id number] 05:08:48 Test Item Value Reference Range Interpretation [...] PERCENT (BEAKER) (test code = 2801) POCT-GLUCOSE [id number] 21:02:44 Test Item Value Reference Range Interpretation Comments POC-GLUCOSE METER 122 mg/dL 70-110 H : TESTED A [facility] 67 ([facility]) (test code = [facility], 1538) 54819: Public Health Social Worker/Techni ilir ID = [id number] for Isauro hatch Ashley POCT-GLUCOSE [id number] 14:54:50 Test Item Value Reference Range Interpretation Comments POC-GLUCOSE METER 97 mg/dL 70-110 : TESTED A [facility] 6720 ([facility]) (test code = [facility], 1538) 24505: Public Health Social Worker/Techni ilir ID = [id number] for DERRICK STOREY POC ACTIVATED CLOTTING [id number] 14:04:22 Test Item Value Reference Range Interpretation Comments Activated Clotting Time 260 sec : 74 -137 seconds, (test code = 3184-9) Baselin e: TESTED AT [facility] 6720 [facility], 770 30: Public Health Social Worker/Techni ilir ID = [id number] for Ga rza (contract), Aar on [facility] ACTIVATED CLOTTING [id number] 14:04:22 Test Item Value Reference Range Interpretation Comments Activated Clotting Time 260 sec : 74 -137 seconds, (test code = 3184-9) Baselin e: TESTED AT [facility] [address] [place] [address], 770 30: Public Health Social Worker/Techni ilir ID = [id number] for Ga rza (contract), Aar on [facility]PO[facility]-[id number] 14:04:22 Test Item Value Reference Range Interpretation Comments ACTIVATED CLOTTING TIME 260 sec : 74 -137 seconds, (BEAKER) (test code = Baseli ne: TESTED AT 441) [facility] 67[address] [facility], 770 30: Public Health Social Worker/Techni ilir ID = [id number] for Ga rza (contract), Aar on POCT-GLUCOSE [id number] 11:19:31 Test Item Value Reference Range Interpretation Comments POC-GLUCOSE METER 96 mg/dL 70-110 : TESTED A T [facility] 6720 (BEAKER) (test code = [facility], 1538) 07684: Public Health Social Worker/Techni ilir ID = [id number] for Amad or, Doe POCT-GLUCOSE [id number] 08:05:08 Test Item Value Reference Range Interpretation Comments POC-GLUCOSE METER 98 mg/dL 70-110 : TESTED A T [facility] 6720 (BEAKER) (test code = [facility], 1538) 92158: Public Health Social Worker/Techni ilir ID = [id number] for Amad or, Doe CBC W/PLT COUNT & AUTO [id number] 06:08:47 Test Item Value Reference Range Interpretation [...] (BEAKER) (test code = 2801) BASIC METABOLIC [id number] 05:29:11 Test Item Value Reference Range Interpretation [...] = 358) GLUCOSE RANDOM 88 mg/dL 70-105 (NivelaAKER) (test code = 652) CALCIUM (BEAKER) 9.4 mg/dL 8.4-10.2 (test code = 697) EGFR (NivelaAKER) 102 Interpretatio n of eGFR (test code [...] not appl icable for dialysis patien ts Public Health Social Worker ID - BALAAYA LPOCT-GLUCOSE [id number] 21:07:11 Test Item Value Reference Range Interpretation Comments POC-GLUCOSE METER 100 mg/dL 70-110 : TESTED A T [facility] 6720 ([employer] (test code = [facility], 1538) 61881: Public Health Social Worker/Techni ilir ID = [id number] for MATHEUS ROD POCT-GLUCOSE [id number] 16:42:15 Test Item Value Reference Range Interpretation Comments POC-GLUCOSE METER 99 mg/dL 70-110 : TESTED A T [facility] 6720 ([employer] ([employer])) (test code = [facility], 1538) 80551: Public Health Social Worker/Techni ilir ID = [id number] for LATANYA KRISHNAMURTHY POCT-GLUCOSE [id number] 12:34:23 Test Item Value Reference Range Interpretation Comments POC-GLUCOSE METER 115 mg/dL 70-110 H : TESTED A T [facility] 6720 ([employer] ([employer] (test code = [facility], 1538) 06779: Public Health Social Worker/Techni ilir ID = [id number] for [place] BROWN, JORDANANEJEROME 2D Echo W/Doppler(CW/PW/Color)2022-06-01 10:23:04Ejection FractionSLEH ECHO HEARTLAB MKCKESSON CPACSCHI [facility] Vxlzav1I Echo W/Doppler(CW/PW/Color)2022-06-01 10:23:04Ejection FractionSLEH ECHO HEARTLAB [facility] 07:44:37 Test Item Value Reference Range Interpretation Comments MAGNESIUM (BEAKER) (test code = 1.9 mg/dL 1.6-2.6 627) Public Health Social Worker ID - MANPREET [id number] 07:44:37 Test Item Value Reference Range Interpretation Comments PHOSPHORUS (BEAKER) (test code = 3.5 mg/dL 2.3-4.7 604) Public Health Social Worker ID - MANPREET GBASIC METABOLIC [id number] 07:44:36 Test Item Value Reference Range Interpretation [...] not appl icable for dialysis patien ts Public Health Social Worker ID - MANPREET GPOCT-GLUCOSE [id number] 07:37:57 Test Item Value Reference Range Interpretation Comments POC-GLUCOSE METER 101 mg/dL 70-110 : TESTED A T [facility] 6720 (BEAKER) (test code = [place], 1538) [address]: Public Health Social Worker/Techni ilir ID = [id number] for LATANYA WALTER CBC W/PLT COUNT & AUTO [id number] 05:49:58 Test Item Value Reference Range Interpretation [...] PERCENT (BEAKER) (test code = 2801) POCT-GLUCOSE [id number] 22:17:39 Test Item Value Reference Range Interpretation Comments POC-GLUCOSE METER 103 mg/dL 70-110 : TESTED A T [facility] 6720 (BEAKER) (test code = [facility], 153) [id number]: Public Health Social Worker/Techni ilir ID = [id number] for Misael ruiz (contract)Rishi POCT-GLUCOSE [id number] 17:17:44 Test Item Value Reference Range Interpretation Comments POC-GLUCOSE METER 109 mg/dL 70-110 : TESTED A T [facility] 6720 (BEAKER) (test code = [facility], 153) 79081: Public Health Social Worker/Techni ilir ID = [id number] for lauraEric beach POCT-GLUCOSE [id number] 11:56:56 Test Item Value Reference Range Interpretation Comments POC-GLUCOSE METER 112 mg/dL 70-110 H : TESTED A T [facility] 6720 (BEAKER) (test code = [facility], 153) 38944: Public Health Social Worker/Techni ilir ID = [id number] for HU NTER, HIWITHA CBC W/PLT COUNT & AUTO [id number] 08:34:37 Test Item Value Reference Range Interpretation [...] (test code = 2801) HIGH SENSITIVITY TROPONIN [id number] 07:20:15 Test Item Value Reference Range Interpretation Comments HIGH SENSITIVITY 10 pg/ml See_Comment [Automated message] TROPONIN I (test code = The system which [id number]) generated this result transmitted ref erence range: <=35. Th e reference range was not used to int erpret this result as normal/abnormal . Public Health Social Worker ID - MANPREET GThe SUPERVISORY CBP OFFICER STAT High Sensitivity Troponin-I results should be used in conjunction with other diagnostic information such as ECG, clinical observations and information, and patient symptoms to aid in the diagnosis of [place].RAD, CHEST, 1 VIEW, NON [id number] 07:06:00Reason for exam:- >new chest painShould this be performed at the bedside?->Yes [facility] 1960 Sex: MFINAL [...] Date/Time: 05/31/2022 07:06:21 , ABDOMEN/KUB, 1 VIEW [id number] 07:06:00Reason for exam:->new severe RLQ painShould this be performed at the bedside?->Yes [facility] 1960 Sex: MFINAL [...] [place] MDR[place] Verified Date/Time: 05/31/2022 07:06:21 -GLUCOSE [id number] 07:05:02 Test Item Value Reference Range Interpretation Comments POC-GLUCOSE METER 103 mg/dL 70-110 : TESTED A T [facility] 6720 (BEAKER) (test code = [place], 1538) 235[address]: Public Health Social Worker/Techni ilir ID = [id number] for PELON OLMTSEADWITHA [id number] 06:21:54 Test Item Value Reference Range Interpretation Comments PHOSPHORUS (BEAKER) (test code = 3.4 mg/dL 2.3-4.7 604) Public Health Social Worker ID - MANPREET GBASIC METABOLIC [id number] 06:21:53 Test Item Value Reference Range Interpretation [...] not appl icable for dialysis patien ts Public Health Social Worker ID - MANPREET [id number] 06:21:53 Test Item Value Reference Range Interpretation Comments MAGNESIUM (BEAKER) (test code = 1.5 mg/dL 1.6-2.6 L 627) Public Health Social Worker ID - MANPREET GCT, [id number] 23:26:00Unlisted Reason for Exam - Click Yes and Enter Reason Below->YesUnlisted Reason for Exam->epigastric and LUQ severe pain; history of prior colon cancer remotelyIs this for enterography?->NoPlease specify:->Pancreasspleen and GI tractWill this procedure require oral contrast?->Yes [facility] 1960 Sex: MFINAL [...] on a nonemergent basis. Signed: Erika Echavarria [facility] Verified Date/Time: 05/30/2022 23:26:03 PET/CT, CARDIAC PERF REST AND STRESS 2022-05-30 23:00:00Reason for exam:->cardiac screening, high CAD risk [facility] 1960 Sex: MFINAL REPORT PROCEDURE: PET/CT Rest/Stress MYOCARDIAL PERFUSION with regadenoson\\XA9\\CPTCODE: 37767HBYDSZIVEG: CADPROTOCOL: Limited low-dose CT imaging was performed [...] [place] MDR[place] Verified Date/Time: 05/30/2022 23:00:16 POCT-GLUCOSE [id number] 21:22:07 Test Item Value Reference Range Interpretation Comments POC-GLUCOSE METER 113 mg/dL 70-110 H : TESTED A T [facility] 6720 (SANAM) (test code = [place], 1538) 872[address]: Public Health Social Worker/Techni ilir ID = [id number] for Ashley Hartmann SARS-COV2/RT-PCR ([facility])2022-05-30 17:11:48 Test Item Value Reference Range Interpretation Comments SARS-COV2/RT-PCR Negative Negative The SARS-Co V-2 target (test code = nucleic acids a re not 1895621) detected in thi s specimen. Negative result [...] sooner. Fact Sheet for Healthcare Providers: https://www.cepheid.co m/Documents/Xpert%20Xpress%20SARS%20CoV-2/Fact%20Sheets/302-3497%21KVJE-DYM-3%20 HEALTHCARE%20PROVIDERS%20FACT%20SHEET.pdf Fact Sheet for Healthcare Patients: https://www.cepheid.com/Documents/Xpert%20Xp ress%20SARS%20CoV-2/Fact%20Sheets/302-3801%16KWJG-XQL-1%20PATIENT%20FACT%20SHEET .pdfPOCT-GLUCOSE [id number] 17:06:14 Test Item Value Reference Range Interpretation Comments POC-GLUCOSE METER 164 mg/dL 70-110 H : TESTED A T [facility] 6720 (BEAKER) (test code = [facility] Abelino [facility], 1538) 76256: Public Health Social Worker/Techni ilir ID = [id number] for Do hodge Eric POCT-GLUCOSE [id number] 08:05:36 Test Item Value Reference Range Interpretation Comments POC-GLUCOSE METER 96 mg/dL 70-110 : TESTED A T [facility] 6720 (BEAKER) (test code = [facility] Abelino [facility], 1538) 26619: Public Health Social Worker/Techni ilir ID = [id number] for Gabriela payan Eric BASIC METABOLIC [id number] 05:09:47 Test Item Value Reference Range Interpretation [...] not appl icable for dialysis patien ts Public Health Social Worker ID - MANPREET [id number] 05:09:47 Test Item Value Reference Range Interpretation Comments MAGNESIUM (BEAKER) (test code = 1.6 mg/dL 1.6-2.6 627) Public Health Social Worker ID - MANPREET [id number] 05:09:47 Test Item Value Reference Range Interpretation Comments PHOSPHORUS (BEAKER) (test code = 3.7 mg/dL 2.3-4.7 604) Public Health Social Worker ID - MANPREET GCBC W/PLT COUNT & AUTO [id number] 04:50:40 Test Item Value Reference Range Interpretation [...] (BEAKER) (test code = 2801) Carotid doppler [id number] 21:49:59Ejection FractionSLEH ECHO HEARTLAB MKCKESSON [facility] CampusCarotid doppler [id number] 21:49:59Ejection FractionSLEH ECHO HEARTLAB MK[facility]ON [facility] CampusPOCT-GLUCOSE [id number] 21:16:22 Test Item Value Reference Range Interpretation Comments POC-GLUCOSE METER 118 mg/dL 70-110 H : TESTED A T [facility] 6720 (BEAKER) (test code = [place], 1538) 41368: Public Health Social Worker/Techni ilir ID = [id number] for PE RALES, SUDHA CARCINOEMBRYONIC ANTIGEN (CEA)2022-05-29 17:38:23 Test Item Value Reference Range Interpretation Comments CARCINOEMBRYONIC ANTIGEN (BEAKER) 2.9 ng/mL 0.0-5.0 (test code = 685) Public Health Social Worker ID - BSALPHA FETOPROTEIN (AFP), TUMOR [id number] 17:38:23 Test Item Value Reference Range Interpretation Comments ALPHA-FETOPROTEIN (BEAKER) (test 4.7 ng/mL <10.0 code = 1094) Public Health Social Worker ID - BSPOCT-GLUCOSE [id number] 16:54:18 Test Item Value Reference Range Interpretation Comments POC-GLUCOSE METER 176 mg/dL 70-110 H : TESTED A T [facility] 6720 (BEAKER) (test code = [place], 1538) [address]: Public Health Social Worker/Techni ilir ID = [id number] for Aubrey Altamirano POCT-GLUCOSE [id number] 11:26:02 Test Item Value Reference Range Interpretation Comments POC-GLUCOSE METER 99 mg/dL 70-110 : TESTED A T [facility] 6720 (BEAKER) (test code = [place] [facility], 1538) 13913: Public Health Social Worker/Techni ilir ID = [id number] for Gabriela payan Eric CBC W/PLT COUNT & AUTO [id number] 10:23:04 Test Item Value Reference Range Interpretation [...] PERCENT (BEAKER) (test code = 2801) PROTHROMBIN TIME/[id number] 08:41:01 Test Item Value Reference Range Interpretation Comments PROTIME (BEAKER) 10.9 seconds 9.8-12.0 (test code = 759) INR (BEAKER) (test 0.99 See_Comment [Automat ed message] code = 370) The system [employer] generated this result transmitted ref erence range: <=5.90. The reference range was not used to int erpret this result as normal/abnormal . RECOMMENDED COUMADIN/WARFARIN INR THERAPY RANGESSTANDARD DOSE: 2.0 - 3.0 Includes: PROPHYLAXIS for venous thrombosis, systemic embolization; TREATMENT for venous thrombosis and/or pulmonary embolus.HIGH RISK: Target INR is 2.5-3.5 for patients with mechanical heart valves.POCT-GLUCOSE [id number] 07:36:23 Test Item Value Reference Range Interpretation Comments POC-GLUCOSE METER 98 mg/dL 70-110 : TESTED A T [facility] 6720 (BEAKER) (test code = KAYDC Abelino [facility], 1538) 59647: Public Health Social Worker/Techni ilir ID = [id number] for Eric Renteria BASIC METABOLIC [id number] 06:13:40 Test Item Value Reference Range Interpretation [...] not appl icable for dialysis patien ts Public Health Social Worker ID - MANPREET [id number] 06:13:40 Test Item Value Reference Range Interpretation Comments MAGNESIUM (BEAKER) (test code = 1.7 mg/dL 1.6-2.6 627) Public Health Social Worker ID - MANPREET [id number] 06:13:40 Test Item Value Reference Range Interpretation Comments PHOSPHORUS (BEAKER) (test code = 3.1 mg/dL 2.3-4.7 604) Public Health Social Worker GALI Godoy
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
[2023-02-15 14:46] LABS: Protime INR 1.04
[2023-02-15 14:53] LABS: Hematocrit 45.8 % (39.6-49.0); Lymphocytes % 23.9 % (15.3-44.8); MCV 92.5 fL (80-100); MPV 8.2 fL (7.6-11.3); Platelets 245 thou/uL (152-406); RBC Red Blood Cell Count 4.96 M/uL (4.33-5.43)
[2023-02-15 15:06] LABS: ALT/SGPT 23 U/L (16-61); AST/SGOT 14 U/L (15-37); Albumin 3.9 g/dL (3.4-5.0); Alkaline Phosphatase 74 U/L (45-117); BUN Blood Urea Nitrogen 9 mg/dL (7-18); Bicarbonate 21 mEq/L (21-32); Bilirubin Direct 0.3 mg/dL (0-0.2); Bilirubin Indirect, Calculated 0.9 mg/dL (0.2-0.8); Bilirubin Total 1.2 mg/dL (0.2-1.0); Glomerular Filtration Rate 78 ml/min (=/>90); Glucose Level 123 mg/dL (74-106); Potassium 3.8 mEq/L (3.5-5.1); Protein, Total 7.5 g/dL (6.4-8.2); Sodium Level 135 mEq/L (136-145)
[2023-02-15 15:26] LABS: Specific Gravity 1.013 (1.005-1.030); Urine Bilirubin NEGATIVE (Negative); Urine Blood Negative (Negative); Urine Clarity Clear (Clear); Urine Color Yellow (Yellow); Urine Glucose NEGATIVE (Negative); Urine Protein NEGATIVE (Negative); Urine Urobilinogen 2+ (Normal); Urine pH 6.5 (5.0-7.0)
[2023-02-15 15:32] LABS: Barbiturates NEGATIVE (NEGATIVE); Benzodiazepines NEGATIVE (NEGATIVE); Cocaine NEGATIVE (NEGATIVE); METHAMPHETAM NEGATIVE (NEGATIVE); Methadone NEGATIVE (NEGATIVE); Opiates POSITIVE (NEGATIVE); Phencyclidine NEGATIVE (NEGATIVE); THC Cannibis NEGATIVE (NEGATIVE)
[2023-02-15] MEDS ORDERED: IBUPROFEN 400 MG TAB ONE (19:49)
[2023-02-15] MEDS ORDERED: IBUPROFEN 200 MG TAB PO ONE (19:49)
[2023-02-16] MEDS ORDERED: NICOTINE 21 MG/PAT TD ONE (07:37)
[2023-02-16 08:53] VITALS: TEMP 97.9
[2023-02-16 08:58] VITALS: BP 145/90; O2SAT 98
--- NOTE | 2023-02-17 18:15 | EKG ---
Test Date: 2023-02-15 Test Time: 14:39:51 Steam Meter Reader: TINA MEASUREMENT RESULTS: Intervals: Rate: 82 UT: 160 QRSD: 132 QT: 402 QTc: 469 [place]: P: 49 UT: 160 QRS: 84 T: 37 INTERPRETIVE STATEMENTS: Normal sinus rhythm Right bundle branch block Abnormal ECG Compared to ECG 02/12/2023 21:31:10 No significant changes Electronically Signed On 02-17-23 18:12:16 CDT by David Mtz
== END 2023-02-16 08:36 | disposition home or self-care (01) ==
LOC: ER 14:01
DX: T40.2X2A Poisoning by other opioids, intentional self-harm, initial encounter (principal)
CPT/HCPCS: 36415; 80048; 80076; 80143; 80179; 80307; 81003; 82077; 85025; 85610; 85730; 93005